=== PATIENT | female | born 2000 | race American Indian/Alaskan Native ===

== ENCOUNTER 2019-11-05 21:04 | Emergency (ER) | payer OTHER ==
[~2019-11-05] VITALS: Ht 167.6 cm; Wt 106.8 kg
[2019-11-05 21:50] LABS: BASO # 0.1 10^3/uL (0.0-0.2); BASO % 0.8 % (0.0-1.0); EOS # 0.4 10^3/uL (0.0-0.5); EOS % 3.8 % (0.0-3.0); HEMATOCRIT 39.7 % (36.0-47.0); HEMOGLOBIN 12.9 g/dl (12.0-15.5); LYMPH # 3.6 10^3/uL (1.5-5.0); LYMPH % 38.1 % (24.0-44.0); MEAN CORPUSCULAR HEMOGLOBIN 28.2 pg (27.0-33.0); MEAN CORPUSCULAR HGB CONC 32.5 g/dl (32.0-36.5); MEAN CORPUSCULAR VOLUME 86.7 fl (80.0-96.0); MONO # 0.8 10^3/uL (0.0-0.8); MONO % 8.2 % (0.0-5.0); NEUTROPHILS # 4.6 10^3/uL (1.5-8.5); NEUTROPHILS % 48.9 % (36.0-66.0); PLATELET COUNT, AUTOMATED 299 10^3/uL (150-450); RED BLOOD COUNT 4.58 10^6/uL (4.00-5.40); WHITE BLOOD COUNT 9.5 10^3/uL (4.0-10.0)
[2019-11-05 21:57] LABS: HCG, SERUM QUALITATIVE NEGATIVE (NEGATIVE)
[2019-11-05 22:34] VITALS: BP 148/78
== END 2019-11-05 22:36 | disposition home or self-care (01) ==
LOC: M ED 21:04
DX: N92.1 Excessive and frequent menstruation with irregular cycle (principal); F41.9 Anxiety disorder, unspecified

== ENCOUNTER 2019-12-21 21:11 | Emergency (ER) | payer OTHER ==
[~2019-12-21] VITALS: Ht 167.6 cm; Wt 106.8 kg
[2019-12-21] MEDS ORDERED: IBUPROFEN 600MG TAB PO ONE (21:30)
[2019-12-21] MEDS ORDERED: ACETAMINOPHEN 325 MG TAB PO ONE (21:30)
[2019-12-21] MEDS ORDERED: NS 1,000 ML IV ONE (21:30)
[2019-12-21 21:32] LABS: HEMATOCRIT 38.3 % (36.0-47.0); HEMOGLOBIN 12.6 g/dl (12.0-15.5); MEAN CORPUSCULAR HEMOGLOBIN 28.4 pg (27.0-33.0); MEAN CORPUSCULAR HGB CONC 32.9 g/dl (32.0-36.5); MEAN CORPUSCULAR VOLUME 86.3 fl (80.0-96.0); PLATELET COUNT, AUTOMATED 308 10^3/uL (150-450); RED BLOOD COUNT 4.44 10^6/uL (4.00-5.40); WHITE BLOOD COUNT 9.7 10^3/uL (4.0-10.0)
[2019-12-21] MEDS ORDERED: KEPP1TAB PO (21:46)
[2019-12-21 22:08] LABS: BLOOD UREA NITROGEN 11 MG/DL (7-18); CARBON DIOXIDE LEVEL 25 MEQ/L (21-32); CHLORIDE LEVEL 110 MEQ/L (98-107); CREATININE FOR GFR 0.88 MG/DL (0.55-1.30); GLUCOSE, FASTING 103 MG/DL (70-100); HCG, SERUM QUANTITATIVE < 1.0 MIU/ML; SODIUM LEVEL 142 MEQ/L (136-145)
[2019-12-21] MEDS ORDERED: MORPHINE 4 MG/ML 1ML VIAL/SYRINGE (J2270) IV ONE (23:00)
[2019-12-22 02:06] VITALS: BP 132/85
--- NOTE | 2019-12-22 20:25 | ECGEPIP ---
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
== END 2019-12-22 02:11 | disposition home or self-care (01) ==
LOC: M ED 21:11
DX: G40.909 Epilepsy, unspecified, not intractable, without status epilepticus (principal); Z88.0 Allergy status to penicillin; Z79.899 Other long term (current) drug therapy
CPT/HCPCS: 80048; 81001; 84702; 85027; 87086; 93005; 96361; 96374; 99285; J2270

== ENCOUNTER 2020-01-03 21:01 | Emergency (ER) | payer OTHER ==
[~2020-01-03] VITALS: Ht 167.6 cm; Wt 108.4 kg
[~2020-01-03 21:01] MED LIST: KEPP1TAB PO
[2020-01-03] MEDS ORDERED: DERMABOND TOPICAL SKIN ADHESIVE TOP ONE (22:15)
--- NOTE | 2020-01-03 22:51 | REPVR ---
PROCEDURE INFORMATION: Exam: XR Right Finger(s) Exam date and time: 01/03/2020 10:19 PM Age: 19 years old Clinical indication: Other: Cut with knife; Additional info: Swelling, limited rom after dropping bowl on it index TECHNIQUE: Imaging protocol: XR Right fingers. Views: Minimum 2 views. COMPARISON: No relevant prior studies available. FINDINGS: Bones/joints: Joint spaces are normal. No fracture or malalignment. Soft tissues: Normal. IMPRESSION: No fracture or malalignment. Electronically signed by: Felice Shahid On 01/03/2020 22:51:11 PM
[2020-01-03 23:04] VITALS: BP 139/78
== END 2020-01-03 23:05 | disposition home or self-care (01) ==
LOC: M ED 21:01
DX: S61.210A Laceration without foreign body of right index finger without damage to nail, initial encounter (principal); W26.8XXA Contact with other sharp object(s), not elsewhere classified, initial encounter; Y92.019 Unspecified place in single-family (private) house as the place of occurrence of the external cause; Y93.89 Activity, other specified; Y99.8 Other external cause status; F17.200 Nicotine dependence, unspecified, uncomplicated; Z79.899 Other long term (current) drug therapy; Z88.0 Allergy status to penicillin

== ENCOUNTER 2020-01-24 20:04 | Emergency (ER) | payer OTHER ==
[~2020-01-24] VITALS: Ht 167.6 cm; Wt 108.4 kg
[2020-01-24] MEDS ORDERED: ONDANSETRON 4MG/2ML VIAL IV ONE (20:45)
[2020-01-24] MEDS ORDERED: levETIRAcetam INJection 1,000 MG in D5W 100 ML IV ONE (20:45)
[2020-01-24] MEDS ORDERED: FAMOTIDINE IV BAG 20 MG in IV 1 EA IV ONE (20:45)
[2020-01-24] MEDS ORDERED: NS 1,000 ML IV ONE (20:45)
[2020-01-24 21:07] LABS: BASO # 0.1 10^3/uL (0.0-0.2); BASO % 0.6 % (0.0-1.0); EOS # 0.3 10^3/uL (0.0-0.5); EOS % 3.1 % (0.0-3.0); HEMATOCRIT 37.7 % (36.0-47.0); HEMOGLOBIN 12.3 g/dl (12.0-15.5); LYMPH # 3.3 10^3/uL (1.5-5.0); LYMPH % 32.3 % (24.0-44.0); MEAN CORPUSCULAR HEMOGLOBIN 28.2 pg (27.0-33.0); MEAN CORPUSCULAR HGB CONC 32.6 g/dl (32.0-36.5); MEAN CORPUSCULAR VOLUME 86.5 fl (80.0-96.0); MONO # 0.6 10^3/uL (0.0-0.8); MONO % 5.8 % (0.0-5.0); NEUTROPHILS # 5.9 10^3/uL (1.5-8.5); NEUTROPHILS % 57.8 % (36.0-66.0); PLATELET COUNT, AUTOMATED 291 10^3/uL (150-450); RED BLOOD COUNT 4.36 10^6/uL (4.00-5.40); WHITE BLOOD COUNT 10.2 10^3/uL (4.0-10.0)
[2020-01-24] MEDS ORDERED: ACETAMINOPHEN 500 MG TAB PO ONE (21:30)
[2020-01-24 21:31] LABS: BLOOD UREA NITROGEN 10 MG/DL (7-18); CALCIUM LEVEL 8.9 MG/DL (8.5-10.1); CARBON DIOXIDE LEVEL 26 MEQ/L (21-32); CHLORIDE LEVEL 108 MEQ/L (98-107); CPK CREATINE PHOSPHOKINASE 105 U/L (26-192); CREATININE FOR GFR 0.94 MG/DL (0.55-1.30); GLUCOSE, FASTING 119 MG/DL (70-100); MAGNESIUM LEVEL 2.1 MG/DL (1.8-2.4); POTASSIUM SERUM 3.7 MEQ/L (3.5-5.1); SODIUM LEVEL 142 MEQ/L (136-145)
[2020-01-24 22:15] VITALS: BP 112/56
[2020-01-24] MEDS ORDERED: ACET-907 PO (22:24)
--- NOTE | 2020-01-25 07:39 | ECGEPIP ---
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
== END 2020-01-24 22:28 | disposition home or self-care (01) ==
LOC: M ED 20:04
DX: G40.909 Epilepsy, unspecified, not intractable, without status epilepticus (principal); Z79.899 Other long term (current) drug therapy; Z88.0 Allergy status to penicillin
CPT/HCPCS: 80048; 82550; 83735; 85025; 93005; 96365; 96367; 96375; 99284; J1953; J2405

== ENCOUNTER 2020-02-23 18:26 | Emergency (ER) | payer OTHER ==
[~2020-02-23] VITALS: Ht 167.6 cm; Wt 104.5 kg
[~2020-02-23 18:26] MED LIST changes: +ACET-907 PO
[2020-02-23] MEDS ORDERED: DERMABOND TOPICAL SKIN ADHESIVE TOP ONE ×3 (19:00→19:30)
[2020-02-23 20:01] VITALS: BP 126/77
== END 2020-02-23 20:03 | disposition home or self-care (01) ==
LOC: M ED 18:26
DX: S61.012A Laceration without foreign body of left thumb without damage to nail, initial encounter (principal); Y92.9 Unspecified place or not applicable; Y93.G1 Activity, food preparation and clean up; Y99.9 Unspecified external cause status

== ENCOUNTER 2020-03-12 19:15 | Emergency (ER) | payer OTHER ==
[~2020-03-12] VITALS: Ht 167.6 cm; Wt 102.1 kg
--- OUTSIDE RECORDS SUMMARY | 2020-03-12 19:24 | CCD ---
Author Author [facility] Organization [facility] Address Unknown Phone Unavailable Care Team Providers Care Water Pump Servicer Name Role Phone CAM PRINCE MD Unavailable Unavailable CAM PRINCE MD Unavailable Unavailable CAM PRINCE MD Unavailable Unavailable CAM PRINCE MD Unavailable Unavailable GINZBURG, CAM MD Unavailable Unavailable GINZBURG, CAM MD Unavailable Unavailable GINZBURG, CAM MD Unavailable Unavailable GINZBURG CAM MD Unavailable Unavailable GINZBURG CAM MD Unavailable Unavailable GINZBURG CAM MD Unavailable Unavailable GINZBURG CAM MD Unavailable Unavailable GINZBURG CAM MD Unavailable Unavailable GINZBURG, CAM MD Unavailable Unavailable GINZBURG CAM MD Unavailable Unavailable GINZBURG, CAM MD Unavailable Unavailable GINZBURG, CAM MD Unavailable Unavailable GINZBURG, CAM MD Unavailable Unavailable GINZBURG, CAM MD Unavailable Unavailable GINZBURG, CAM MD Unavailable Unavailable GINZBURG CAM Unavailable Unavailable GINZBURG CAM Unavailable Unavailable GINZROSALIO CAM MD Unavailable Unavailable GINZBURG CAM MD Unavailable Unavailable GINZROSALIO CAM MD Unavailable Unavailable GINZROSALIO CAM Unavailable Unavailable GINZROSALIO CAM MD Unavailable Unavailable GINZROSALIO CAM MD Unavailable Unavailable GINZBURG, CAM MD Unavailable Unavailable GINZROSALIO CAM MD Unavailable Unavailable GINZROSALIO CAM MD Unavailable Unavailable GINZROSALIO CAM Unavailable Unavailable GINZROSALIO CAM Unavailable Unavailable GINZROSALIO CAM MD Unavailable Unavailable GINZROSALIO CAM Unavailable Unavailable GINZROSALIO CAM MD Unavailable Unavailable GINZROSALIO CAM Unavailable Unavailable GINZROSALIO CAM MD Unavailable Unavailable GINZBURG CAM Unavailable Unavailable GINZBURG CAM MD Unavailable Unavailable GINZBURG CAM MD Unavailable Unavailable GINZBURG, CAM MD Unavailable Unavailable GINZBURG, CAM MD Unavailable Unavailable GINZBURG CAM Unavailable Unavailable GINZBURG CAM Unavailable Unavailable GINZBURG CAM Unavailable Unavailable GINZBURG CAM MD Unavailable Unavailable GINZBURG, CAM MD Unavailable Unavailable GINZBURG, CAM MD Unavailable Unavailable GINZBURG CAM MD Unavailable Unavailable GINZBURG, CAM MD Unavailable Unavailable GINZBURG, CAM MD Unavailable Unavailable GINZBURG, CAM MD Unavailable Unavailable GINZBURG, CAM MD Unavailable Unavailable GINZBURG, CAM MD Unavailable Unavailable GINZBURG, CAM MD Unavailable Unavailable GINZBURG, CAM MD Unavailable Unavailable GINZBURG, CAM MD Unavailable Unavailable GINZBURG, CAM MD Unavailable Unavailable GINZBURG, CAM MD Unavailable Unavailable GINZBURG, CAM MD Unavailable Unavailable GINZBURG, CAM MD Unavailable Unavailable GINZBURG, CAM MD Unavailable Unavailable GINZBURG, CAM MD Unavailable Unavailable GINZBURG, CAM MD Unavailable Unavailable GINZBURG, CAM MD Unavailable Unavailable GINZBURG, CAM MD Unavailable Unavailable GINZBURG, CAM MD Unavailable Unavailable GINZBURG, CAM MD Unavailable Unavailable GINZBURG, CAM MD Unavailable Unavailable VAN GORDER, T SALMA Unavailable Unavailable VAN GORDER, T SALMA Unavailable Unavailable VAN GORDER, T SALMA Unavailable Unavailable VAN GORDER, T SALMA Unavailable Unavailable TEST, PROVIDER Unavailable Unavailable Rigoberto-Lisa, A Nilton DO Unavailable Unavailable Rigoberto-Lisa, A Nilton DO Unavailable Unavailable Rigoberto-Lisa, A Nilton DO Unavailable Unavailable Rigoberto-Lisa, A Nilton DO Unavailable Unavailable Rigoberto-Lisa, A Nilton DO Unavailable Unavailable Rigoberto-Lisa, A Nilton DO Unavailable Unavailable HALEY ZAYAS Unavailable Unavailable Kathy WIN Unavailable Unavailable Dustin LINARES, Physician Maryann Gee Unavailable Unavailable Theron DOBSON Unavailable Unavailable Kathy GONZALEZ Unavailable Unavailable Tere Mckenna MD Unavailable Unavailable Tere Mckenna MD Unavailable Unavailable Tere Mckenna MD Unavailable Unavailable CROWDER, ANANYA DO Unavailable Unavailable CROWDER, ANANYA DO Unavailable Unavailable CROWDER, ANANYA DO Unavailable Unavailable CROWDER, ANANYA DO Unavailable Unavailable CROWDER, ANANYA DO Unavailable Unavailable Provider Pending, [facility] Shamar Combs MD Unavailable Un available Toñito Avina MD Unavailable Unavailable Toñito Avina MD Unavailable Unavailable TAHIRA NEAL Unavailable Unavailable JIGNESH ELLIS MD Unavailable Unavailable JIGNESH ELLIS MD Unavailable Unavailable Sanford, Desiree DEPARTMENT OF SOCIOLOGY CHAIR Unavailable Unavailable [place]ford, Desiree DEPARTMENT OF SOCIOLOGY CHAIR Unavailable Unavailable [place]ford, Desiree DEPARTMENT OF SOCIOLOGY CHAIR Unavailable Unavailable [place]ford, Desiree DEPARTMENT OF SOCIOLOGY CHAIR Unavailable Unavailable [place]ford, Desiree DEPARTMENT OF SOCIOLOGY CHAIR Unavailable Unavailable NON, PHYSICIAN STAFF Unavailable Unavailable TURRIN, RONDA Unavailable Unavailable TURRIN, RONDA Unavailable Unavailable TURRIN, RONDA Unavailable Unavailable TURRIN, RONDA Unavailable Unavailable REBEKAH KILLIAN MD, Latoya WELCH MD Unavailable Unavailable Berto Temple MD Unavailable Unavailable Berto Temple MD Unavailable Unavailable Berto Temple MD Unavailable Unavailable Berto Temple MD Unavailable Unavailable Berto Temple MD Unavailable Unavailable Juarez, W Best Unavailable Unavailable Juarez, W Best Unavailable Unavailable Juarez, W Best Unavailable Unavailable Juarez, W Best Unavailable Unavailable Juarez, W Best Unavailable Unavailable Juarez, W Best Unavailable Unavailable Juarez, W Best Unavailable Unavailable Juarez, W Best Unavailable Unavailable [id number], [id number] Unavailable MEDENT_[id number], [id number] Unavailable MEDENT_[id number], [id number] Unavailable MEDENT_[id number], [id number] Unavailable MEDENT_[id number], [id number] Unavailable MEDENT_[id number], [id number] Unavailable MEDENT_[id number], [id number] Unavailable MEDENT_[id number], [id number] Unavailable MEDENT_[id number], [id number] Unavailable Theron Fuller MD Unavailable Unavailable Theron Fuller MD Unavailable Unavailable Theron Fuller MD Unavailable Unavailable Nancy Dooley MD Unavailable Unavailable Nancy Dooley MD Unavailable Unavailable Nancy Dooley MD Unavailable Unavailable Nancy Dooley MD Unavailable Unavailable Nancy Dooley MD Unavailable Unavailable Nancy Dooley MD Unavailable Unavailable Nancy Dooley MD Unavailable Unavailable Miah, E Dinorah MD Unavailable Unavailable Miah, E Dinorah MD Unavailable Unavailable Miah, E Dinorah MD Unavailable Unavailable Miah, E Dinorah MD Unavailable Unavailable Miah, E Dinorah MD Unavailable Unavailable Miah, E Dinorah MD Unavailable Unavailable Miah, E Dinorah MD Unavailable Unavailable Miah, E Dinorah MD Unavailable Unavailable Miah, E Dinorah MD Unavailable Unavailable Miah, E Dinorah MD Unavailable Unavailable Miah, E Dinorah MD Unavailable Unavailable Miah, E Dinorah MD Unavailable Unavailable Maih, E Dinorah MD Unavailable Unavailable Miah, E Dinorah MD Unavailable Unavailable Miah, E Dinorah MD Unavailable Unavailable Miah, E Dinorah MD Unavailable Unavailable Miah, E Dinorah MD Unavailable Unavailable Miah, E Dinorah MD Unavailable Unavailable Miah, E Dinorah MD Unavailable Unavailable Miah, E Dinorah MD Unavailable Unavailable Miah, E Dinorah MD Unavailable Unavailable Miah, E Dinorah MD Unavailable Unavailable Maih, E Dinorah MD Unavailable Unavailable Re-disclosure Warning The records that you are about to access may contain information from federally-assisted alcohol or drug abuse programs. If such information is present, then the following federally mandated warning applies: This information has been disclosed to you from records protected by federal confidentiality rules (42 CFR part 2). The federal rules prohibit you from making any further disclosure of this information unless further disclosure is expressly permitted by the written consent of the person to whom it pertains or as otherwise permitted by 42 CFR part 2. A general authorization for the release of medical or other information is NOT sufficient for this purpose. The Federal rules restrict any use of the information to criminally investigate or prosecute any alcohol or drug abuse patient.The records that you are about to access may contain highly sensitive health information, the redisclosure of which is protected by Article 27-F of the [facility] Public Health law. If you continue you may have access to information: Regarding HIV / AIDS; Provided by facilities licensed or operated by the [facility] Office of Mental Health; or Provided by the [facility] Office for People With Developmental Disabilities. If such information is present, then the following [facility] mandated warning applies: This information has been disclosed to you from confidential records which are protected by state law. State law prohibits you from making any further disclosure of this information without the specific written consent of the person to whom it pertains, or as otherwise permitted by law. Any unauthorized further disclosure in violation of state law may result in a fine or skilled nursing sentence or both. A general authorization for the release of medical or other information is NOT sufficient authorization for further disc losure. Family History Family Member Name Family Member Gender Family Member Status Date o f Status Description Data Source(s) Unknown Male Diagnosis 11/07/2014 12:00:00 AM EDT [facility] Encounters Encounter Providers Location Date Indications Data Source(s ) Outpatient Attender: CAM PRINCE MD 02/21/2020 12:00: 00 AM [facility] Outpatient Attender: CAM PRINCE MD [id number] 12:00:00 AM EDT - 12/20/2019 03[facility]38[facility]ender: RONDA GARCIAConsultant: STAFF NON 11/07/2019 11:33:00 PM EDT - 11/08/2019 01:19:00 AM EDT [facility] Patient discharged. Outpatient 07/20/2019 06:39:00 PM EDT [facility] Outpatient Attender: REBEKAH CHAUHAN MD MDAdmitt er: REBEKAH CHAUHAN MD, MD [facility] 07/18/2019 10:30:00 AM EDT TELEPHONE discuss surgery [facility] TELEPHONE discuss surgery [facility] ENT/Facial Plastic Surgery 0 07/18/2019 10:30:00 AM EDT - 07/18/2019 10:30:00 AM EDT Proc/trtmt not carried out because of contraindication [facility] Proc/trtmt not carried out because of co ntraindication P Attender: SALMA CARRASCOdmitter: SALMA ALVARADO MATTHIAS-MATTHIAS 07/11/2019 10:42:00 AM EDT [facility] - [facility] P Attender: LISA DOBSONAdmitter: LISA DOBSON MATTHIAS-MATTHIAS 2019 03:14:00 PM EDT [facility] - [facility] Outpatient Attender: LISA DOBSONAdmitter: LISA DOBSON MATTHIAS-MATTHIAS 06/29/2019 01:18:00 PM EDT - 06/29/2019 01:18:00 PM EDT [facility] Patient discharged. Outpatient Attender: Wali Temple MDAdmitter: Wali casanova MD [facility] 06/18/2019 06:16:00 PM EDT - 06/18/2019 08:15:00 PM EDT [facility] Patient discharged. Outpatient Attender: SALMA CARRASCOdmitter: SALMA ALVARADO OUT-OUT 05/31/2019 12:01:00 AM EDT - 06/29/2019 11:59:00 PM EDT [facility] - [facility] Patient discharged. P Attender: SALMA Bethitter: SALMA ALVARADO MATTHIAS-MATTHIAS 05/30/2019 08:44:00 AM EDT [facility] - [facility] Outpatient Attender: SALMA CARRASCOdmitter: SALMA ALVARADO MATTHIAS-MATTHIAS 05/30/2019 08:29:00 AM EDT - 05/30/2019 08:29:00 AM EDT [facility] - [facility] Patient discharged. P Attender: Desiree CHERRY PAttender: PROVIDER TESTAdmitter: Desiree HERNANDEZ LCB-LCB 05/26/2019 01:33:00 PM EDT Ascen darren Smith - [facility] Outpatient Attender: HALEY ZAYASAdmitter: HALEY SERRANO LCB-LCB 05/16/2019 05:58:00 PM EDT - 05/16/2019 05:58:00 PM EDT [facility] - [facility] Patient discharged. Outpatient Attender: HALEY FRIEDMAN ttender: PROVIDER TESTAdmitter: HALEY ZAYAS LCB-LCB 05/16/2019 05:23:00 PM EDT - 05/16/2019 05:58:00 PM EDT [facility] - [facility] Emergency Attender: Nilton moura DOAdmitter: Nilton ABRAMSeferrer: Dinorah Chavez/ShayM/S 05/12/2019 02:05:00 PM EDT - 05/12/2019 03:05:00 PM EDT [facility] - [facility] Patient discharged. Emergency Attender: Nilton moura DOAdmitter: Nilton Willson DOReferrer: Dinorah Dooley MD ANC-ER 05/12/2019 02:05:00 PM EDT [facility] Sarah - [facility] Outpatient Attender: TAHIRA BELLA PAAdmitter: TAHIRA BELLA PA MATTHIAS-MATTHIAS 05/12/2019 12:53:00 PM EDT - 05/12/2019 12:53:00 PM EDT [facility] - [facility] Patient discharged. Outpatient Attender: Best Verma r: [facility] [place] Br Provider Pending MDAdmitter: Best CASTRO 05/08/2019 11:02:00 AM EDT [facility] OutpatientOffice/outpatient visit,est, mod [facility] 05/08/2019 11:02:00 AM EDT - 05/08/2019 11:02:00 AM EDT Intractable migraine without status migrainosus, unspecified migraine type [facility] Intractable migraine without status migr ainosus, unspecified migraine type Outpatient Attender: MADHAVI GUAJARDOdmitter: MADHAVI WIN ANC -BCC 05/01/2019 08:27:00 AM EST - 05/01/2019 08:27:00 AM EST [facility] - [facility] Patient discharged. Outpatient Attender: SALMA CARRASCOdmitter: SALMA ALVARADO OUT-OUT 2019 12:01:00 AM EST - 05/30/2019 11:59:00 PM EDT [facility] - [facility] Patient discharged. Emergency Attender: Teddy Kurtz nder: Nilton Willson DOAdmitter: Teddy Mckenna MDReferrer: Dinorah Chavez/Katina-M/S 04/27/2019 01:15:00 PM EST - 04/27/2019 05:18:00 PM EST [facility] Patient discharged. Emergency Attender: Nilton Willson DOAdmitter : Nilton Willson DO ANC-ER 04/27/2019 01:15:00 PM EST [facility] Tonja rdes - [facility] Outpatient Attender: SALMA Bethitter: SALMA ALVARADO OUT-OUT 04/26/2019 02:59:00 PM EST - 04/27/2019 09:13:00 AM EST [facility] - [facility] Patient discharged. Outpatient Attender: SALMA Bethitter: SALMA ALVARADO OUT-OUT 04/25/2019 09:15:00 AM EST - 04/29/2019 11:59:00 PM EST [facility] - [facility] Patient discharged. Outpatient Attender: TAHIRA Buenoitter: TAHIRA HOFFMANN MATTHIAS-MATTHIAS 04/24/2019 10:16:00 AM EST - 04/24/2019 10:16:00 AM EST [facility] - [facility] Patient discharged. P Attender: TAHIRA Buenoitter: TAHIRA HOFFMANN MATTHIAS-MATTHIAS 04/24/2019 09:00:00 AM EST [facility] P Attender: SALMA Bethitter: SALMA ALVARADO MATTHIAS-MATTHIAS 04/19/2019 09:00:00 AM EST [facility] - [facility] Outpatient Attender: SALMA Bethitter: SALMA ALVARADO MATTHIAS-MATTHIAS 04/10/2019 07:46:00 AM EST - 04/10/2019 09:28:00 AM EST [facility] - [facility] Patient discharged. Outpatient Attender: SALMA Bethitter: SALMA ALVARADO ANC-NICKOLAS 04/10/2019 05:00:00 AM EST - 04/10/2019 07:00:00 PM EST [facility] - [facility] Patient discharged. Outpatient Attender: SALMA CARRASCO dmitter: SALMA Alemanultant: Physician Marlen Chan MD ANC-NICKOLAS 04/10/2019 05:00:00 AM EST - 04/10/2019 07:00:00 PM EST [facility] - [facility] P Attender: SALMA Bethitter: SALMA ALVARADO ANC-NICKOLAS 04/10/2019 04:00:00 AM EST [facility] - [facility] P Attender: SALMA Bethitter: SALMA ALVARADO PAT-PAT 04/05/2019 04:00:00 AM EST [facility] - [facility] P Attender: SALMA Bethitter: SALMA ALVARADO MATTHIAS-MATTHIAS 04/04/2019 01:50:00 PM EST [facility] - [facility] Outpatient Attender: [id number] [facility] Main Office 04/04/2019 11:45:00 AM EST [facility] ([facility] ) Outpatient Attender: SALMA Bethitter: SALMA ALVARADO MATTHIAS-MATTHIAS 04/04/2019 09:52:00 AM EST - 04/04/2019 09:52:00 AM EST [facility] - [facility] Patient discharged. Emergency Attender: Toñito Hernandez ter: Toñito Avina MDReferrer: Dinorah Dooley MD M/S-M/S 04/03/2019 12:15:00 PM EST - 04/03/2019 05:20:00 PM EST [facility] - [facility] Patient discharged. Emergency Attender: Toñito Hernandez ter: Toñito LARKINeferrer: Dinorah Dooley MD ANC-ER 04/03/2019 12:15:00 PM EST - 04/03/2019 05:20:00 PM EST [facility] - [facility] P Attender: MADHAVI Williamitter: MADHAVI WIN ANC -BCC 03/28/2019 04:00:00 AM EST [facility] - [facility] Outpatient Attender: PROVIDER TESTAdmitter: PROVIDER TEST Jessica ARMENDARIZ-LCB 03/26/2019 11:11:00 AM EST - 03/26/2019 12:11:00 PM EST [facility] - [facility] Patient discharged. Outpatient Attender: ZEE GONZALEZAttender: PROVIDER TESTAdmitter: ZEE ABDALLA-LCB 03/26/2019 10:11:00 AM EST - 03/26/2019 12:11:00 PM EST [facility] - [facility] Outpatient Attender: ZEE GONZALEZAttender: PROVIDER TESTAdmitter: ZEE ABDALLA-LCB 03/26/2019 10:11:00 AM EST - 03/27/2019 11:59:59 PM EST [facility] - [facility] Emergency Attender: Atilio Fuller MDAdmitter: Atilio Cahvez/S-M/S 02/18/2019 09:11:00 AM EST - 02/18/2019 02:08:00 PM EST [facility] - [facility] Patient discharged. Emergency Attender: Atilio Fuller MDAdmitter: Atilio stahl MD ANC-ER 02/18/2019 09:11:00 AM EST [facility] - [facility] Outpatient [facility] 01/27/2019 02:52:00 PM EST - 019 12:00:00 AM EDT [facility] Patient discharged. [facility] Evelina 1 03/29/2018 02:48:00 PM EST - 01/27/2019 02:48:00 PM EST [employer] [place] [place] Attender: ANANYA OMALLEY ttender: Nilton Willson DOAdmitter: ANANYA CROWDER DOReferrer: Dinorah Dooley MD M/S-M/S 12/03/19 02:43:00 PM EDT - 12/02/2018 07:06:00 PM EDT [facility] - [facility] Patient discharged. Emergency Attender: JIGNESH ELLIS MDAt tender: Atilio Fuller MDAdmitter: JIGNESH ELLIS MDReferrer: Dinorah Dooley MD M/S-M/S 11/28/2018 01:55 :00 PM EDT - 11/28/2018 06:46:00 PM EDT [facility] Patient discharged. Medications Medication Brand Name Start Date Product Form Dose Route Admi nistrative Instructions Pharmacy Instructions Status Indications Reaction Description Data Source(s) Diclofenac Sodium 50 MG Delayed Release Oral Tablet Diclofen ac Sodium 06/29/2019 12:00:00 AM EDT ORAL active M EDENT ([facility]) naproxen 500 mg oral tablet 05/26/2019 02:15:00 PM EDT 5 00.0 By Mouth completed 500 mg = 1 tab(s), P O (oral), bid, PRN Pain, # 30 tab(s), Maintenance, Pharmacy: [facility]/pharmacy #[id number], 1 tab(s) PO (oral) bid,PRN:Pain [facility] naproxen 500 mg oral tablet 05/26/2019 02:15:00 PM EDT 5 00.0 By Mouth completed 500 mg = 1 tab(s), P O (oral), bid, PRN Pain, # 30 tab(s), Maintenance, Pharmacy: [facility]/pharmacy #[id number], 1 tab(s) PO (oral) bid,PRN:Pain [facility] naproxen 500 mg oral tablet 05/26/2019 02:15:00 PM EDT 5 00.0 By Mouth completed 500 mg = 1 tab(s), P O (oral), bid, PRN Pain, # 30 tab(s), Maintenance, Pharmacy: [facility]/pharmacy #[id number], 1 tab(s) PO (oral) bid,PRN:Pain [facility] Sarah [facility] naproxen 500 mg oral tablet 05/26/2019 02:15:00 PM EDT 5 00.0 By Mouth completed 500 mg = 1 tab(s), P O (oral), bid, PRN Pain, # 30 tab(s), Maintenance, Pharmacy: [facility]/pharmacy #[id number], 1 tab(s) PO (oral) bid,PRN:Pain [facility] - [facility] Zofran 4 mg oral tablet 05/12/2019 02:44:00 PM EDT 4.0 Under your Tongue completed 4 mg = 1 tab(s), SubLINGUAL, q6hr, PRN for Nausea or Vomiting, # 9 tab(s), 0 Refill(s), Maintenance, Pharmacy: [facility]/pharmacy [id number], 1 tab(s) SubLINGUAL q6hr,x3 day(s),PRN:for Nausea or Vomiting [facility] - [facility] Zofran 4 mg oral tablet 05/12/2019 02:44:00 PM EDT 4.0 Under your Tongue completed 4 mg = 1 tab(s), SubLINGUAL, q6hr, PRN for Nausea or Vomiting, # 9 tab(s), 0 Refill(s), Maintenance, Pharmacy: [facility]/pharmacy #[id number], 1 tab(s) SubLINGUAL q6hr,x3 day(s),PRN:for Nausea or Vomiting [facility] - [facility], [facility] Zofran 4 mg oral tablet 05/12/2019 02:44:00 PM EDT 4.0 Under your Tongue completed 4 mg = 1 tab(s), SubLINGUAL, q6hr, PRN for Nausea or Vomiting, # 9 tab(s), 0 Refill(s), Maintenance, Pharmacy: [facility]/pharmacy #[id number], 1 tab(s) SubLINGUAL q6hr,x3 day(s),PRN:for Nausea or Vomiting [facility] - [facility] Zofran 4 mg oral tablet 05/12/2019 02:44:00 PM EDT 4.0 Under your Tongue completed 4 mg = 1 tab(s), SubLINGUAL, q6hr, PRN for Nausea or Vomiting, # 9 tab(s), 0 Refill(s), Maintenance, Pharmacy: [id number], 1 tab(s) SubLINGUAL q6hr,x3 day(s),PRN:for Nausea or Vomiting [facility] - [facility] Zofran 4 mg oral tablet 05/12/2019 02:44:00 PM EDT 4.0 Under your Tongue completed 4 mg = 1 tab(s), SubLINGUAL, q6hr, PRN for Nausea or Vomiting, # 9 tab(s), 0 Refill(s), Maintenance, Pharmacy: [facility]acy [id number], 1 tab(s) SubLINGUAL q6hr,x3 day(s),PRN:for Nausea or Vomiting [facility] Zofran ODT 4 mg oral tablet, disintegrating 04/27/2019 05: 08:00 PM EST 4.0 By Mouth completed 4 mg = 1 tab(s ), PO (oral), tid, PRN Nausea, # 9 tab(s), Maintenance, Pharmacy: [id number], 1 tab(s) PO (oral) tid,PRN:Nausea [facility] Sarah - [facility], [facility] Zofran ODT 4 mg oral tablet, disintegrating 04/27/2019 05: 08:00 PM EST 4.0 By Mouth completed 4 mg = 1 tab(s ), PO (oral), tid, PRN Nausea, # 9 tab(s), Maintenance, Pharmacy: [id number], 1 tab(s) PO (oral) tid,PRN:Nausea [facility] - [facility] Zofran ODT 4 mg oral tablet, disintegrating 04/27/2019 05: 08:00 PM EST 4.0 By Mouth completed 4 mg = 1 tab(s ), PO (oral), tid, PRN Nausea, # 9 tab(s), Maintenance, Pharmacy: [id number], 1 tab(s) PO (oral) tid,PRN:Nausea [facility] Sarah - [facility] Zofran ODT 4 mg oral tablet, disintegrating 04/27/2019 05: 08:00 PM EST 4.0 By Mouth completed 4 mg = 1 tab(s ), PO (oral), tid, PRN Nausea, # 9 tab(s), Maintenance, Pharmacy: [facility]/pharmacy #[id number], 1 tab(s) PO (oral) tid,PRN:[facility] Zofran ODT 4 mg oral tablet, disintegrating 04/27/2019 05: 08:00 PM EST 4.0 By Mouth completed 4 mg = 1 tab(s ), PO (oral), tid, PRN Nausea, # 9 tab(s), Maintenance, Pharmacy: [facility]/pharmacy #[id number], 1 tab(s) PO (oral) tid,PRN:Nausea [facility], [facility] Zofran ODT 4 mg oral tablet, disintegrating 04/27/2019 05: 08:00 PM EST 4.0 By Mouth completed 4 mg = 1 tab(s ), PO (oral), tid, PRN Nausea, # 9 tab(s), Maintenance, Pharmacy: [facility]/pharmacy #[id number], 1 tab(s) PO (oral) tid,PRN:Nausea [facility], [facility] Omeprazole omeprazole 40 mg oral delayed release capsu le omeprazole 40 mg oral delayed release capsule 04/27/2019 05:00:00 PM EST 40.0 By Mouth completed 40 mg = 1 cap(s), PO (oral), qDay, # 90 cap(s), Maintenance, Pharmacy: [facility]/pharmacy #[id number], 1 cap(s) PO (oral) qDay Harnett [facility], [facility] Omeprazole omeprazole 40 mg oral delayed release capsu le omeprazole 40 mg oral delayed release capsule 04/27/2019 05:00:00 PM EST 40.0 By Mouth completed 40 mg = 1 cap(s), PO (oral), qDay, # 90 cap(s), Maintenance, Pharmacy: [facility]/pharmacy #[id number], 1 cap(s) PO (oral) qDay [facility]ett [facility] Omeprazole omeprazole 40 mg oral delayed release capsu le omeprazole 40 mg oral delayed release capsule 04/27/2019 05:00:00 PM EST 40.0 By Mouth completed 40 mg = 1 cap(s), PO (oral), qDay, # 90 cap(s), Maintenance, Pharmacy: [facility]/pharmacy #[id number], 1 cap(s) PO (oral) qDay [facility] Omeprazole omeprazole 40 mg oral delayed release capsu le omeprazole 40 mg oral delayed release capsule 04/27/2019 05:00:00 PM EST 40.0 By Mouth completed 40 mg = 1 cap(s), PO (oral), qDay, # 90 cap(s), Maintenance, Pharmacy: [facility]/pharmacy #[id number], 1 cap(s) PO (oral) qDay Harnett Sarah - [facility], [facility] Omeprazole omeprazole 40 mg oral delayed release capsu le omeprazole 40 mg oral delayed release capsule 04/27/2019 05:00:00 PM EST 40.0 By Mouth completed 40 mg = 1 cap(s), PO (oral), qDay, # 90 cap(s), Maintenance, Pharmacy: [facility]/pharmacy #[id number], 1 cap(s) PO (oral) qDay Harnett Sarah - [facility], [facility] Omeprazole omeprazole 40 mg oral delayed release capsu le omeprazole 40 mg oral delayed release capsule 04/27/2019 05:00:00 PM EST 40.0 By Mouth completed 40 mg = 1 cap(s), PO (oral), qDay, # 90 cap(s), Maintenance, Pharmacy: [facility]/pharmacy #[id number], 1 cap(s) PO (oral) qDay [facility] - [facility], [facility] medroxyPROGESTERone 150 mg/mL intramuscular suspension 04/27/2019 04:13:00 PM EST 150.0 IntraMUSCULAR completed 150 mg =, IM, Maintenance [facility], [facility] Morphine Sulfate 15 MG Oral Tablet Morphine Sulfate 04/11/2019 1 2:00:00 AM EST ORAL completed [facility] ([facility]) acetaminophen-oxyCODONE 325 mg-5 mg oral tablet 2019 12:18:00 PM EST 1.0 By Mouth completed 1 tab(s), PO (oral), q4h, PRN Moderate Pain (4- 6), # 20 tab(s), 0 Refill(s), Maintenance, Pharmacy: [facility]/pharmacy #[id number], 1 tab(s) PO (oral) q4h,PRN:Moderate Pain (4-6) Harnettjohn Smith - [facility], [facility] CeleBREX 100 mg oral capsule 04/10/2019 12:17:00 PM EST 100.0 By Mouth completed 100 mg = 1 cap(s), P O (oral), bid, # 60 cap(s), Maintenance, Pharmacy: [facility]acy [id number], 1 cap(s) PO (oral) bid [facility]ett Sarah [facility] docusate sodium 100 mg oral tablet 04/10/2019 12:16:00 PM EST 100.0 By Mouth completed 100 mg =, PO ( oral), qDay, # 5 tab(s), Maintenance, Pharmacy: [facility]/pharmacy #[id number], 100 mg PO (oral) qDay Harnett Sarah - [facility], [facility] cephalexin 500 mg oral capsule 04/10/2019 12:16:00 PM EST 500.0 By Mouth completed 500 mg = 1 cap(s ), PO (oral), q6hr, # 12 cap(s), Maintenance, Pharmacy: [facility]/pharmacy #[id number], 1 cap(s) PO (oral) q6hr Harnett Sarah - [facility] Zofran ODT 4 mg oral tablet, disintegrating 04/10/2019 12: 16:00 PM EST Under your Tongue completed 1 to 2 tab(s), SubLINGUAL, q8h, PRN for nausea or vomiting, # 4 tab(s), Maintenance, Pharmacy: [id number], 1 to 2 tab(s) SubLINGUAL q8h,PRN:for nausea or vomiting [facility]arnett Sarah [facility] aspirin 325 mg oral delayed release tablet 04/10/2019 12:1 6:00 PM EST 325.0 By Mouth completed 325 mg = 1 tab (s), PO (oral), qDay, # 14 tab(s), Maintenance, Pharmacy: [id number], 1 tab(s) PO (oral) qDay Harnett Sarah - [facility], [facility] Zofran ODT 4 mg oral tablet, disintegrating 04/03/2019 04: 37:30 PM EST Under your Tongue completed 1 to 2 tab(s), SubLINGUAL, q8h, PRN for nausea or vomiting, # 4 tab(s), Maintenance, Pharmacy: [facility]/pharmacy #[id number], 1 to 2 tab(s) SubLINGUAL q8h,PRN:for nausea or vomiting [facility]arnett Sarah - [facility], [facility] Macrobid 100 mg oral capsule 03/26/2019 11:05:15 AM EST 100.0 By Mouth completed 100 mg = 1 cap(s), P O (oral), bid, # 10 cap(s), Maintenance, Pharmacy: [facility]/pharmacy #[id number], 1 cap(s) PO (oral) bid,x5 day(s) [facility]arnett Sarah - [facility], [facility] Macrobid 100 mg oral capsule 03/26/2019 11:05:15 AM EST 100.0 By Mouth completed 100 mg = 1 cap(s), P O (oral), bid, # 10 cap(s), Maintenance, Pharmacy: [facility]/pharmacy #[id number], 1 cap(s) PO (oral) bid,x5 day(s) [facility]arnett Sarah - [facility], [facility] Voltaren 75 mg oral enteric coated tablet 02/18/2019 01:51 :38 PM EST 75.0 By Mouth completed 75 mg = 1 tab( s), PO (oral), bid, # 20 tab(s), Maintenance, Pharmacy: [id number], 1 tab(s) PO (oral) bid Harnett Sarah - [facility], [facility] Voltaren 75 mg oral enteric coated tablet 02/18/2019 01:51 :38 PM EST 75.0 By Mouth completed 75 mg = 1 tab( s), PO (oral), bid, # 20 tab(s), Maintenance, Pharmacy: [id number], 1 tab(s) PO (oral) bid [facility]ett [facility], [facility] Flonase Allergy Relief 50 mcg/actuation nasal spray,dickinson spension Fluticasone propionate 0.05 MG/ACTUAT Metered Dose Nasal [place] 06/08/2016 12:00:00 AM EDT NASAL completed Fluticason e propionate 0.05 MG/ACTUAT Metered Dose Nasal [place] [Flonase] [facility] trazodone 50 mg tablet trazodone HCl TABLET 1.00 tablet ORAL completed take 1 tablet by oral route every day at bedtime [facility] Hyoscyamine Sulfate 0.125 MG/ML Oral Nat ution HYOSCYAMINE SULFATE (unknown strength) HYOSCYAMINE SULFATE (unknown strength) ORAL completed take 1 milliliter by oral route every 4 hours as needed [facility] Previfem 0.25 mg-35 mcg tablet {21 (Ethinyl Estradiol 0.035 MG / norgestimate 0.25 MG Oral Tablet) / 7 (Inert Ingredients 1 MG Oral Tablet) } Pack TABLET 1.00 tablet ORAL completed Previfem 28 Day Pa ck [facility] Briellyn 0.4 mg-35 mcg tablet {21 (Ethinyl Estradiol 0 .035 MG / Norethindrone 0.4 MG Oral Tablet) / 7 (Inert Ingredients 1 MG Oral Tablet) } Pack TABLET 1.00 tablet ORAL completed Briellyn 28 Day Pa ck [facility] Metformin hydrochloride 500 MG Oral Tablet metformin 5 00 mg tablet metformin 500 mg tablet TABLET 1.00 tablet ORAL completed take 1 tablet by oral route 2 times every day with morning and evening meals [facility] Lactobacillus rhamnosus GG [id number] U NT Oral Capsule Culturelle 10 billion cell capsule Culturelle 10 billion cell capsule CAPSULE ORAL completed [facility] Clonazepam 1 MG Oral Tablet clonazepam 1 mg tablet clonazepam 1 mg tablet TABLET 1 tablet ORAL completed take 1 tablet by oral route 2 times every day [facility] methylphenidate ER 50 mg multiphase capsule 30-70,exte nded release methylphenidate HCl CAPSULE ORAL completed take 1 capsule by oral route every day before breakfast [facility] Insurance Providers Payer name Policy type / Coverage type Policy ID Covered alliance party ID Covered alliance party's relationship to soto Policy Soto Plan Information [employer] [facility] [id number] SP [id number] CDPHP COMMERCIAL U [id number] Self 3 [id number] [facility] [employer] [facility] [id number] CDPHP [id number] self [id number] Medicaid [id number] Self [id number] CDPHP [id number] Self [id number] MEDICAID NYS 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 S JA [id number] CDPHP COM [id number] F [id number] [facility] Organizational Contracts [id number] Self [id number] CDPHP [id number] self [id number] CDPHP COM [id number] F [id number] CDPHP COM [id number] F [id number] CDPHP Health Maintenance Organization (HMO) [id number] Family Dependent [id number] Medicaid [id number] Self [id number] CDPHP MCO 14 [id number] DE [id number] CDPHP COMMERCIAL U [id number] Self [id number] GOVERNMENTAL GENERIC B [id number] ORel [id number] MEDICAID M [id number] Self [id number] MEDICAID M [id number] Self [id number] Problems, Conditions, and Diagnoses Code Display Name Description Problem Type Effective Dates Data Source(s) 90280140 Knee pain Knee pain Problem 06/29/2019 12:00:00 AM ED T BETSY ([facility]) [id number] Nicotine dependence, cigarettes, uncompl icated Nicotine dependence, cigarettes, uncomplicated Diagnosis 11/07/2019 11:33:00 PM EDT [facility] N949 Unspecified condition associ ated with female genital organs and menstrual cycle Unspecified condition associated with fe male genital organs and menstrual cycle Diagnosis 11/07/2019 11:33:00 PM EDT [facility] N939 Abnormal uterine and vaginal bleeding, u nspecified Abnormal uterine and vaginal bleeding, unspecified Diagnosis 11/07/2019 11:33:00 PM EDT [facility] [id number] Pain in left knee Pain in left knee Diagnosis 06/29/2019 01:18:00 PM EDT Lexi Smith - [facility] K59.00 Constipation, unspecified Constipation, unspecified Di agnosis 06/22/2019 12:00:00 AM EDT [facility] Z4889 Encounter for other specified surgical a ftercare Encounter for other specified surgical aftercare Diagnosis 05/30/2019 08:29:00 AM EDT Asce darrell Smith - [facility], [facility] fever x 2 days fever x 2 days Diagnosis 05/26/2019 01:33: 00 PM EDT Harnett Sarah - [facility], [facility] left knee injury left knee injury Diagnosis 05/16/2019 05 :23:00 PM EDT Harnett Sarah - [facility], [facility] R509 Fever, unspecified Fever, unspecified Diagnosis 0 02:05:00 PM EDT Harnett Sarah - [facility], [facility] FEVER CONGESTION N/V FEVER CONGESTION N/V Diagnosis 05/12/2019 02:05:00 PM EDT Harnett Sarah - [facility], [facility] J029 Acute pharyngitis, unspecified Acute pharyngitis, unsp ecified Diagnosis 05/12/2019 02:05:00 PM EDT Harnett Sarah - [facility], [facility] VAS RC VAS RC Diagnosis 05/12/2019 12:53:00 PM ED T Harnett Sarah - [facility], [facility] M7989 Other specified soft tissue disorders Ot her specified soft tissue disorders Diagnosis 05/12/2019 12:53:00 PM EDT Harnett Tonja rdes - [facility], [facility] N6452 Nipple discharge Nipple discharge Diagnosis 05/01/2019 08 :27:00 AM EST Harnett Sarah - [facility], [facility] N644 Mastodynia Mastodynia Diagnosis 05/01/2019 08:27:00 AM ES T Harnett Sarah - [facility], [facility] [id number] Other half-way (current) drug therapy O ther half-way (current) drug therapy Diagnosis 04/27/2019 01:15:00 PM EST Harnett Tonja rdes - [facility], [facility] Z803 Family history of malignant neoplasm of breast Family history of malignant neoplasm of breast Diagnosis 04/27/2019 01:15:00 PM EST Harnett Tonja rdes - [facility], [facility] Z3202 Encounter for test, result neg ative Encounter for test, result negative Diagnosis 04/27/2019 01:15:00 PM EST Harnett L ourdes - [facility], [facility] [id number] Personal history of nicotine dependence Personal history of nicotine dependence Diagnosis 04/27/2019 01:15:00 PM EST Harnett Tonja rdes - [facility], [facility] [id number] Other specified postprocedural states Ot her specified postprocedural states Diagnosis 04/27/2019 01:15:00 PM EST Harnett Tonja rdes - [facility], [facility] R110 Nausea Nausea Diagnosis 04/27/2019 01:15:00 PM ES T Harnett Sarah - [facility], [facility] F329 Major depressive disorder, single episod e, unspecified Major depressive disorder, single episode, unspecified Diagnosis 04/27/2019 01:15:00 PM EST Harnett Sarah - [facility], [facility] F419 Anxiety disorder, unspecified Anxiety disorder, unspec ified Diagnosis 04/27/2019 01:15:00 PM EST Harnett Sarah - [facility], [facility] K2970 Gastritis, unspecified, without bleeding Gastritis, unspecified, without bleeding Diagnosis 04/27/2019 01:15:00 PM EST Harnett Tonja rdes - [facility], [facility] K219 Gastro-esophageal reflux disease without esophagitis Gastro-esophageal reflux disease without esophagitis Diagnosis 04/27/2019 01:15:00 PM ES T Harnett Sarah - [facility], [facility] CHILLS/VOMITING/CHEST CONGESTION/PAIN CHILLS/VOM ITING/CHEST CONGESTION/PAIN Diagnosis 04/27/2019 01:15:00 PM EST [facility]arnett Sarah [facility] R079 Chest pain, unspecified Chest pain, unspecified Diagno sis 04/27/2019 01:15:00 PM EST Harnett Sarah - [facility], [facility] [id number] Other instability, left knee Other instability, left k nee Diagnosis 04/24/2019 10:16:00 AM EST Harnett Sarah - [facility], [facility] 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, 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, left knee Diagnosis 04/10/2019 07:46:00 AM EST Harnett Tonja rdes - [facility], [facility] F410 Panic disorder episodic paroxysmal an xiety Panic disorder episodic paroxysmal anxiety Diagnosis 04/10/2019 05:00:00 AM EST Harnett Sarah - [facility], [facility] E282 Polycystic ovarian syndrome Polycystic ovarian syndrom e Diagnosis 04/10/2019 05:00:00 AM EST Harnett Sarah - [facility], [facility] F909 Attention-deficit hyperactivity disorder , unspecified type Attention- deficit hyperactivity disorder, unspecified type Diagnosis 04/10 05:00:00 AM EST Harnett Sarah - [facility], [facility] Z8041 Family history of malignant neoplasm of ovary Family history of malignant neoplasm of ovary Diagnosis 04/10/2019 05:00:00 AM EST Harnett Tonja rdes - [facility], [facility] Z880 Allergy status to penicillin Allergy status to penicil livier Diagnosis 04/10/2019 05:00:00 AM EST Harnett Sarah - [facility] 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, 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, left knee Diagnosis 04/10/2019 05:00:00 AM EST Harnett Tonja rdes - [facility], [facility] MP MP Diagnosis 04/10/2019 05:00:00 AM ES T Harnett Sarah - [facility] NICKOLAS NICKOLAS Diagnosis 04/10/2019 05:00:00 AM ES T Harnett Sarah - [facility] M2352 Chronic instability of knee, left knee C hronic instability of knee, left knee Diagnosis 04/10/2019 05:00:00 AM EST Harnett Tonja rdes - [facility], [facility] PAT PHONE PAT PHONE Diagnosis 04/05/2019 04:00:00 AM ES T Harnett Sarah - [facility], [facility] [id number] Sprain of medial collateral ligament of left knee, init Sprain of medial collateral ligament of left knee, init Diagnosis 04/04/2019 09:52:00 AM EST Harnett Sarah - [facility] K589 Irritable bowel syndrome without diarrhe a Irritable bowel syndrome without diarrhea Diagnosis 04/03/2019 12:15:00 PM EST Harnett Tonja rdes - [facility] F418 Other specified anxiety disorders Other specifie d anxiety disorders Diagnosis 04/03/2019 12:15:00 PM EST Harnett Sarah - [facility] K2900 Acute gastritis without bleeding Acute gastritis without bleeding Diagnosis 04/03/2019 12:15:00 PM EST Harnett Sarah - [facility] VOMITING/ABD PAIN/UNABLE TO URINATE VOMITING/ABD PAIN/UNABLE TO URINATE Diagnosis 04/03/2019 12:15:00 PM EST Harnett Sarah - [facility] R1032 Left lower quadrant pain Left lower quadrant pain Diag nosis 04/03/2019 12:15:00 PM EST Harnett Sarah - [facility] BCC PRESLEY BCC PRESLEY Diagnosis 03/28/2019 04:00:00 AM ES T Harnett Sarah - [facility] vomitting for a week vomitting for a week Diagnosis 03/26/2019 10:11:00 AM EST Harnett Sarah - [facility] N390 Urinary tract infection, site not specif ied Urinary tract infection, site not specified Diagnosis 03/26/2019 10:11:00 AM EST Harnett Tonja rdes - [facility] N946 Dysmenorrhea, unspecified Dysmenorrhea, unspecified Di agnosis 02/18/2019 09:11:00 AM EST Harnett Sarah - [facility] VOMITTING/RECTAL BLEEDING VOMITTING/RECTAL BLEEDING Di agnosis 02/18/2019 09:11:00 AM EST Harnett Sarah - [facility] R1030 Lower abdominal pain, unspecified Lower abdomina l pain, unspecified Diagnosis 02/18/2019 09:11:00 AM EST [facility]arnett Sarah [facility] Surgeries/Procedures Procedure Description Date Indications Data Source(s) POSTOP FOLLOW-UP VISIT POSTOP FOLLOW-UP VISIT 06/29/2019 12:00:00 A M EDT Harnett Sarah - [facility], [facility] X-RAY EXAM OF KNEE 3 X-RAY EXAM OF KNEE 3 06/29/2019 12:00:00 AM ED T Harnett Sarah - [facility] X-RAY EXAM OF KNEE 3 X-RAY EXAM OF KNEE 3 06/29/2019 12:00:00 AM ED T Harnett Sarah - [facility], [facility] POSTOP FOLLOW-UP VISIT POSTOP FOLLOW-UP VISIT 06/29/2019 12:00:00 A M EDT Harnett Sarah - [facility] X-Ray Knee Ap & Lateral W/Obliques Three Views 020 12:00:00 AM EDT [facility] ([facility]) OFFICE/OUTPATIENT VISIT EST OFFICE/OUTPATIENT VISIT EST 04/30 12:00:00 AM EDT Harnett Sarah - [facility], [facility] OFFICE/OUTPATIENT VISIT EST OFFICE/OUTPATIENT VISIT EST 04/30 12:00:00 AM EDT Harnett Sarah - [facility] X-RAY EXAM OF KNEE 3 X-RAY EXAM OF KNEE 3 05/16/2019 12:00:00 AM ED T Harnett Sarah - [facility] OFFICE/OUTPATIENT VISIT EST OFFICE/OUTPATIENT VISIT EST 04/29 12:00:00 AM EDT Harnett Sarah - [facility], [facility] X-RAY EXAM OF KNEE 3 X-RAY EXAM OF KNEE 3 05/16/2019 12:00:00 AM ED T Harnett Sarah - [facility], [facility] OFFICE/OUTPATIENT VISIT EST OFFICE/OUTPATIENT VISIT EST 04/29 12:00:00 AM EDT Harnett Sarah - [facility] X-RAY EXAM OF KNEE 3 X-RAY EXAM OF KNEE 3 05/16/2019 12:00:00 AM ED T Harnett Sarah - [facility] X-RAY EXAM OF KNEE 3 X-RAY EXAM OF KNEE 3 05/16/2019 12:00:00 AM ED T Harnett Sarah - [facility] X-RAY EXAM OF KNEE 3 X-RAY EXAM OF KNEE 3 05/16/2019 12:00:00 AM ED T Harnett Sarah - [facility] RSV DNA/RNA AMP PROBE RSV DNA/RNA AMP PROBE 05/12/2019 12:00:00 AM EDT Harnett Sarah - [facility] STREP A AG IA STREP A AG IA 05/12/2019 12:00:00 AM EDT Harnett Sarah - [facility] EXTREMITY STUDY EXTREMITY STUDY 05/12/2019 12:00:00 AM EDT Harnett Sarah - [facility] EMERGENCY DEPT VISIT EMERGENCY DEPT VISIT 05/12/2019 12:00:00 AM ED T Harnett Sarah - [facility] INFLUENZA DNA AMP PROBE INFLUENZA DNA AMP PROBE 05/12/2019 12:00:00 AM EDT Harnett Sarah - [facility] EMERGENCY DEPT VISIT EMERGENCY DEPT VISIT 05/12/2019 12:00:00 AM ED T Harnett Sarah - [facility] RSV DNA/RNA AMP PROBE RSV DNA/RNA AMP PROBE 05/12/2019 12:00:00 AM EDT Harnett Sarah - [facility] STREP A AG IA STREP A AG IA 05/12/2019 12:00:00 AM EDT Harnett Sarah - [facility] INFLUENZA DNA AMP PROBE INFLUENZA DNA AMP PROBE 05/12/2019 12:00:00 AM EDT Harnett Sarah - [facility] EXTREMITY STUDY EXTREMITY STUDY 05/12/2019 12:00:00 AM EDT Harnett Sarah - [facility] STREP A AG IA STREP A AG IA 05/12/2019 12:00:00 AM EDT Harnett Sarah - [facility] INFLUENZA DNA AMP PROBE INFLUENZA DNA AMP PROBE 05/12/2019 12:00:00 AM EDT Harnett Sarah - [facility] EMERGENCY DEPT VISIT EMERGENCY DEPT VISIT 05/12/2019 12:00:00 AM ED T Harnett Sarah - [facility] RSV DNA/RNA AMP PROBE RSV DNA/RNA AMP PROBE 05/12/2019 12:00:00 AM EDT Harnett Sarah - [facility] EXTREMITY STUDY EXTREMITY STUDY 05/12/2019 12:00:00 AM EDT Harnett Sarah - [facility] INFLUENZA DNA AMP PROBE INFLUENZA DNA AMP PROBE 05/12/2019 12:00:00 AM EDT Harnett Sarah - [facility] EMERGENCY DEPT VISIT EMERGENCY DEPT VISIT 05/12/2019 12:00:00 AM ED T Harnett Sarah - [facility] RSV DNA/RNA AMP PROBE RSV DNA/RNA AMP PROBE 05/12/2019 12:00:00 AM EDT Harnett Sarah - [facility] STREP A AG IA STREP A AG IA 05/12/2019 12:00:00 AM EDT Harnett Sarah - [facility] INFLUENZA DNA AMP PROBE INFLUENZA DNA AMP PROBE 05/12/2019 12:00:00 AM EDT Harnett Sarah - [facility] EMERGENCY DEPT VISIT EMERGENCY DEPT VISIT 05/12/2019 12:00:00 AM ED T Harnett Sarah - [facility] RSV DNA/RNA AMP PROBE RSV DNA/RNA AMP PROBE 05/12/2019 12:00:00 AM EDT Harnett Sarah - [facility] STREP A AG IA STREP A AG IA 05/12/2019 12:00:00 AM EDT Harnett Sarah - [facility] THERAPEUTIC EXERCISES THERAPEUTIC EXERCISES 05/09/2019 12:00:00 AM EDT Harnett Sarah - [facility] THERAPEUTIC EXERCISES THERAPEUTIC EXERCISES 05/09/2019 12:00:00 AM EDT Harnett Sarah - [facility] THERAPEUTIC EXERCISES THERAPEUTIC EXERCISES 05/09/2019 12:00:00 AM EDT [facility]ett [facility] [facility], [facility] Therapeutic, prophylactic, or diagnostic injection; Sub Cut/ IM 05/08/2019 12:00:00 AM EDT - 05/08/2019 12:00:00 AM EDT [facility] Toradol Inj Per 15 mg 05/08/2019 12:00:00 AM EDT - 05/08/2019 12:00:00 AM EDT [facility] Office/outpatient visit,est, mod 020 12:00:00 AM EDT - 05/08/2019 12:00:00 AM EDT [facility] THERAPEUTIC EXERCISES THERAPEUTIC EXERCISES 05/03/2019 12:00:00 AM EST Harnett Sarah - [facility], [facility] THERAPEUTIC EXERCISES THERAPEUTIC EXERCISES 05/03/2019 12:00:00 AM EST Harnett Sarah - [facility], [facility] THERAPEUTIC EXERCISES THERAPEUTIC EXERCISES 05/03/2019 12:00:00 AM EST Harnett Sarah - [facility], [facility] OFFICE/OUTPATIENT VISIT EST OFFICE/OUTPATIENT VISIT EST 04/2019 12:00:00 AM EST Harnett Sarah - [facility], [facility] OFFICE/OUTPATIENT VISIT EST OFFICE/OUTPATIENT VISIT EST 04/2019 12:00:00 AM EST Harnett Sarah - [facility], [facility] ASSAY OF TROPONIN QUANT ASSAY OF TROPONIN QUANT 04/27/2019 12:00:00 [facility] CHORIONIC GONADOTROPIN ASSAY CHORIONIC GONADOTROPIN ASSAY 12:00:00 AM [facility] FIBRIN DEGRADATION QUANT FIBRIN DEGRADATION QUANT 04/27/2019 12:00: 00 AM EST Harnett Sarah - [facility], [facility] COMPREHEN METABOLIC PANEL COMPREHEN METABOLIC PANEL 04/27/2019 1 2:00:00 AM EST Harnett Sarah - [facility], [facility] EMERGENCY DEPT VISIT EMERGENCY DEPT VISIT 04/27/2019 12:00:00 AM ES T Harnett Sarah - [facility], [facility] BLOOD COUNT COMPLETE AUTO&AUTO DIFRNTL WBC COUNT COMPLETE CB C W/AUTO DIFF WBC 04/27/2019 12:00:00 AM EST Harnett Sarah - [facility], [facility] ELECTROCARDIOGRAM TRACING ELECTROCARDIOGRAM TRACING 04/27/2019 1 2:00:00 AM EST Harnett Sarah - [facility], [facility] X-RAY EXAM CHEST 2 VIEWS X-RAY EXAM CHEST 2 VIEWS 04/27/2019 12:00: 00 AM EST Harnett Sarah - [facility], [facility] ROUTINE VENIPUNCTURE ROUTINE VENIPUNCTURE 04/27/2019 12:00:00 AM ES T Harnett Sarah - [facility], [facility] COMPREHEN METABOLIC PANEL COMPREHEN METABOLIC PANEL 04/27/2019 1 2:00:00 AM EST Harnett Sarah - [facility], [facility] X-RAY EXAM CHEST 2 VIEWS X-RAY EXAM CHEST 2 VIEWS 04/27/2019 12:00: 00 AM EST Harnett Sarah - [facility], [facility] FIBRIN DEGRADATION QUANT FIBRIN DEGRADATION QUANT 04/27/2019 12:00: 00 AM EST Harnett Sarah - [facility], [facility] BLOOD COUNT COMPLETE AUTO&AUTO DIFRNTL WBC COUNT COMPLETE CB C W/AUTO DIFF WBC 04/27/2019 12:00:00 AM EST Harnett Sarah - [facility], [facility] CHORIONIC GONADOTROPIN ASSAY CHORIONIC GONADOTROPIN ASSAY 12:00:00 AM EST Harnett Sarah - [facility], [facility] EMERGENCY DEPT VISIT EMERGENCY DEPT VISIT 04/27/2019 12:00:00 AM ES T Harnett Sarah - [facility], [facility] ROUTINE VENIPUNCTURE ROUTINE VENIPUNCTURE 04/27/2019 12:00:00 AM ES T Harnett Sarah - [facility], [facility] ELECTROCARDIOGRAM TRACING ELECTROCARDIOGRAM TRACING 04/27/2019 1 2:00:00 AM EST Harnett Sarah - [facility], [facility] ASSAY OF TROPONIN QUANT ASSAY OF TROPONIN QUANT 04/27/2019 12:00:00 AM EST Harnett Sarah - [facility], [facility] ELECTROCARDIOGRAM TRACING ELECTROCARDIOGRAM TRACING 04/27/2019 1 2:00:00 AM EST Harnett Sarah - [facility], [facility] BLOOD COUNT COMPLETE AUTO&AUTO DIFRNTL WBC COUNT COMPLETE CB C W/AUTO DIFF WBC 04/27/2019 12:00:00 AM EST Harnett Sarah - [facility], [facility] EMERGENCY DEPT VISIT EMERGENCY DEPT VISIT 04/27/2019 12:00:00 AM ES T Harnett Sarah - [facility], [facility] COMPREHEN METABOLIC PANEL COMPREHEN METABOLIC PANEL 04/27/2019 1 2:00:00 AM EST Harnett Sarah - [facility], [facility] ROUTINE VENIPUNCTURE ROUTINE VENIPUNCTURE 04/27/2019 12:00:00 AM ES T Harnett Sarah - [facility], [facility] CHORIONIC GONADOTROPIN ASSAY CHORIONIC GONADOTROPIN ASSAY 12:00:00 AM EST Harnett Sarah - [facility], [facility] FIBRIN DEGRADATION QUANT FIBRIN DEGRADATION QUANT 04/27/2019 12:00: 00 AM EST Harnett Sarah - [facility], [facility] X-RAY EXAM CHEST 2 VIEWS X-RAY EXAM CHEST 2 VIEWS 04/27/2019 12:00: 00 AM EST Harnett Sarah - [facility], [facility] ASSAY OF TROPONIN QUANT ASSAY OF TROPONIN QUANT 04/27/2019 12:00:00 AM EST Harnett Sarah - [facility], [facility] CHORIONIC GONADOTROPIN ASSAY CHORIONIC GONADOTROPIN ASSAY 12:00:00 AM EST Harnett Sarah - [facility], [facility] COMPREHEN METABOLIC PANEL COMPREHEN METABOLIC PANEL 04/27/2019 1 2:00:00 AM EST Harnett Sarah - [facility], [facility] BLOOD COUNT COMPLETE AUTO&AUTO DIFRNTL WBC COUNT COMPLETE CB C W/AUTO DIFF WBC 04/27/2019 12:00:00 AM EST Harnett Sarah - [facility], [facility] FIBRIN DEGRADATION QUANT FIBRIN DEGRADATION QUANT 04/27/2019 12:00: 00 AM EST Harnett Sarah - [facility], [facility] ASSAY OF TROPONIN QUANT ASSAY OF TROPONIN QUANT 04/27/2019 12:00:00 AM EST Harnett Sarah - [facility], [facility] X-RAY EXAM CHEST 2 VIEWS X-RAY EXAM CHEST 2 VIEWS 04/27/2019 12:00: 00 AM EST Harnett Sarah - [facility], [facility] ROUTINE VENIPUNCTURE ROUTINE VENIPUNCTURE 04/27/2019 12:00:00 AM ES T Harnett Sarah - [facility], [facility] ELECTROCARDIOGRAM TRACING ELECTROCARDIOGRAM TRACING 04/27/2019 1 2:00:00 AM EST Harnett Sarah - [facility], [facility] EMERGENCY DEPT VISIT EMERGENCY DEPT VISIT 04/27/2019 12:00:00 AM ES T Harnett Sarah - [facility], [facility] COMPREHEN METABOLIC PANEL COMPREHEN METABOLIC PANEL 04/27/2019 1 2:00:00 AM EST Harnett Sarah - [facility], [facility] ROUTINE VENIPUNCTURE ROUTINE VENIPUNCTURE 04/27/2019 12:00:00 AM ES T Harnett Sarah - [facility], [facility] CHORIONIC GONADOTROPIN ASSAY CHORIONIC GONADOTROPIN ASSAY 12:00:00 AM EST Harnett Sarah - [facility], [facility] X-RAY EXAM CHEST 2 VIEWS X-RAY EXAM CHEST 2 VIEWS 04/27/2019 12:00: 00 AM EST Harnett Sarah - [facility], [facility] FIBRIN DEGRADATION QUANT FIBRIN DEGRADATION QUANT 04/27/2019 12:00: 00 AM EST Harnett Sarah - [facility], [facility] ELECTROCARDIOGRAM TRACING ELECTROCARDIOGRAM TRACING 04/27/2019 1 2:00:00 AM EST Harnett Sarah - [facility], [facility] ASSAY OF TROPONIN QUANT ASSAY OF TROPONIN QUANT 04/27/2019 12:00:00 AM EST Harnett Sarah - [facility] EMERGENCY DEPT VISIT EMERGENCY DEPT VISIT 04/27/2019 12:00:00 AM ES T Harnett Sarah - [facility] BLOOD COUNT COMPLETE AUTO&AUTO DIFRNTL WBC COUNT COMPLETE CB C W/AUTO DIFF WBC 04/27/2019 12:00:00 AM EST Harnett Sarah - [facility] X-RAY EXAM OF KNEE 1 OR 2 X-RAY EXAM OF KNEE 1 OR 2 04/24/2019 1 2:00:00 AM EST Harnett Sarah - [facility] POSTOP FOLLOW-UP VISIT POSTOP FOLLOW-UP VISIT 04/24/2019 12:00:00 A M EST Harnett Sarah - [facility] X-RAY EXAM OF KNEE 1 OR 2 X-RAY EXAM OF KNEE 1 OR 2 04/24/2019 1 2:00:00 AM EST Harnett Sarah - [facility] POSTOP FOLLOW-UP VISIT POSTOP FOLLOW-UP VISIT 04/24/2019 12:00:00 A M EST Harnett Sarah - [facility] X-Ray Knee Ap & Lateral 04/24/2019 12:00:00 AM EST [facility] ([facility]) X-RAY EXAM OF KNEE 1 OR 2 X-RAY EXAM OF KNEE 1 OR 2 04/24/2019 1 2:00:00 AM EST Harnett Sarah - [facility] POSTOP FOLLOW-UP VISIT POSTOP FOLLOW-UP VISIT 04/24/2019 12:00:00 A M EST Harnett Sarah - [facility] X-RAY EXAM OF KNEE 1 OR 2 X-RAY EXAM OF KNEE 1 OR 2 04/24/2019 1 2:00:00 AM EST Harnett Sarah - [facility] POSTOP FOLLOW-UP VISIT POSTOP FOLLOW-UP VISIT 04/24/2019 12:00:00 A M EST Harnett Sarah - [facility], [facility] POSTOP FOLLOW-UP VISIT POSTOP FOLLOW-UP VISIT 04/24/2019 12:00:00 A M EST Harnett Sarah - [facility], [facility] X-RAY EXAM OF KNEE 1 OR 2 X-RAY EXAM OF KNEE 1 OR 2 04/24/2019 1 2:00:00 AM EST Harnett Sarah - [facility], [facility] Reposition Left Knee Joint, Open Approach Reposition L eft Knee Joint, Open Approach 04/10/2019 12:00:00 AM EST Harnett Tonja rdes - [facility], [facility] REVISION OF UNSTABLE KNEECAP REVISION OF UNSTABLE KNEECAP 12:00:00 AM EST Harnett Sarah - [facility], [facility] left knee reconstruction left knee reconstruction 04/10/2019 12:00: 00 AM EST Harnett Sarah - [facility], [facility] RECONSTRUCTION KNEE RECONSTRUCTION KNEE 04/10/2019 12:00:00 AM EST Harnett Sarah - [facility], [facility] REVISION OF UNSTABLE KNEECAP REVISION OF UNSTABLE KNEECAP 12:00:00 AM EST Harnett Sarah - [facility], [facility] Reposition Left Knee Joint, Open Approach Reposition L eft Knee Joint, Open Approach 04/10/2019 12:00:00 AM EST Harnett Tonja rdes - [facility], [facility] RECONSTRUCTION KNEE RECONSTRUCTION KNEE 04/10/2019 12:00:00 AM EST Harnett Sarah - [facility], [facility] REVISION OF UNSTABLE KNEECAP REVISION OF UNSTABLE KNEECAP 12:00:00 AM EST Harnett Sarah - [facility], [facility] left knee reconstruction left knee reconstruction 04/10/2019 12:00: 00 AM EST Harnett Sarah - [facility], [facility] REVISION OF UNSTABLE KNEECAP REVISION OF UNSTABLE KNEECAP 12:00:00 AM EST Harnett Sarah - [facility] Reconstruct Patella W/Extensor Realignment/Muscle Advance/Re lease 04/10/2019 12:00:00 AM EST [facility] ([facility]) Reconstruct Patella W/Extensor Realignment/Muscle Advance/Re lease 04/10/2019 12:00:00 AM EST [facility] ([facility]) left knee reconstruction left knee reconstruction 04/10/2019 12:00: 00 AM EST Harnett Sarah - [facility] REVISION OF UNSTABLE KNEECAP REVISION OF UNSTABLE KNEECAP 12:00:00 AM EST Harnett Sarah - [facility], [facility] RECONSTRUCTION KNEE RECONSTRUCTION KNEE 04/10/2019 12:00:00 AM EST Harnett Sarah - [facility], [facility] REVISION OF UNSTABLE KNEECAP REVISION OF UNSTABLE KNEECAP 12:00:00 AM EST Harnett Sarah - [facility] Reposition Left Knee Joint, Open Approach Reposition L eft Knee Joint, Open Approach 04/10/2019 12:00:00 AM EST Harnett Tonja rdes - [facility], [facility] REVISION OF UNSTABLE KNEECAP REVISION OF UNSTABLE KNEECAP 12:00:00 AM EST Harnett Sarah - [facility] RECONSTRUCTION KNEE RECONSTRUCTION KNEE 04/10/2019 12:00:00 AM EST Harnett Sarah - [facility] REVISION OF UNSTABLE KNEECAP REVISION OF UNSTABLE KNEECAP 12:00:00 AM EST Harnett Sarah - [facility] left knee reconstruction left knee reconstruction 04/10/2019 12:00: 00 AM EST Harnett Sarah - [facility] Reposition Left Knee Joint, Open Approach Reposition L eft Knee Joint, Open Approach 04/10/2019 12:00:00 AM EST Harnett Tonja rdes - [facility] left knee reconstruction left knee reconstruction 04/10/2019 12:00: 00 AM EST Harnett Sarah - [facility] REVISION OF UNSTABLE KNEECAP REVISION OF UNSTABLE KNEECAP 12:00:00 AM EST Harnett Sarah - [facility], [facility] REVISION OF UNSTABLE KNEECAP REVISION OF UNSTABLE KNEECAP 12:00:00 AM EST Harnett Sarah - [facility] Reposition Left Knee Joint, Open Approach Reposition L eft Knee Joint, Open Approach 04/10/2019 12:00:00 AM EST Harnett Tonja rdes - [facility], [facility] RECONSTRUCTION KNEE RECONSTRUCTION KNEE 04/10/2019 12:00:00 AM EST Harnett Sarah - [facility], [facility] REVISION OF UNSTABLE KNEECAP REVISION OF UNSTABLE KNEECAP 12:00:00 AM EST Harnett Sarah - [facility], [facility] REVISION OF UNSTABLE KNEECAP REVISION OF UNSTABLE KNEECAP 12:00:00 AM EST Harnett Sarah - [facility] Reposition Left Knee Joint, Open Approach Reposition L eft Knee Joint, Open Approach 04/10/2019 12:00:00 AM EST Harnett Tonja rdes - [facility], [facility] RECONSTRUCTION KNEE RECONSTRUCTION KNEE 04/10/2019 12:00:00 AM EST Harnett Sarah - [facility], [facility] OFFICE/OUTPATIENT VISIT EST OFFICE/OUTPATIENT VISIT EST 05/2019 12:00:00 AM EST Harnett Sarah - [facility] OFFICE/OUTPATIENT VISIT EST OFFICE/OUTPATIENT VISIT EST 05/2019 12:00:00 AM EST Harnett Sarah - [facility] OFFICE/OUTPATIENT VISIT EST OFFICE/OUTPATIENT VISIT EST 05/2019 12:00:00 AM EST Harnett Sarah - [facility] OFFICE/OUTPATIENT VISIT EST OFFICE/OUTPATIENT VISIT EST 05/2019 12:00:00 AM EST Harnett Sarah - [facility], [facility] OFFICE/OUTPATIENT VISIT EST OFFICE/OUTPATIENT VISIT EST 05/2019 12:00:00 AM EST Harnett Sarah - [facility], [facility] OFFICE/OUTPATIENT VISIT EST OFFICE/OUTPATIENT VISIT EST 05/2019 12:00:00 AM EST Harnett Sarah - [facility], [facility] ONDANSETRON HCL INJECTION ONDANSETRON HCL INJECTION 04/03/2019 1 2:00:00 AM EST Harnett Sarah - [facility], [facility] URINE CULTURE/COLONY COUNT URINE CULTURE/COLONY COUNT 2019 12:00:00 AM EST Harnett Sarah - [facility], [facility] C-REACTIVE PROTEIN C-REACTIVE PROTEIN 04/03/2019 12:00:00 AM EST Harnett Sarah - [facility], [facility] EMERGENCY DEPT VISIT EMERGENCY DEPT VISIT 04/03/2019 12:00:00 AM ES T Harnett Sarah - [facility], [facility] CT ABD & PELVIS W/O CONTRAST CT ABD & PELVIS W/O CONTRAST 12:00:00 AM EST Harnett Sarah - [facility], [facility] THER/PROPH/DIAG INJ IV PUSH THER/PROPH/DIAG INJ IV PUSH 04/2019 12:00:00 AM EST Harnett Sarah - [facility], [facility] ASSAY OF LIPASE ASSAY OF LIPASE 04/03/2019 12:00:00 AM EST Harnett Sarah - [facility], [facility] BLOOD COUNT COMPLETE AUTO&AUTO DIFRNTL WBC COUNT COMPLETE CB C W/AUTO DIFF WBC 04/03/2019 12:00:00 AM EST Harnett Sarah - [facility] ROUTINE VENIPUNCTURE ROUTINE VENIPUNCTURE 04/03/2019 12:00:00 AM ES T Harnett Sarah - [facility] COMPREHEN METABOLIC PANEL COMPREHEN METABOLIC PANEL 04/03/2019 1 2:00:00 AM EST Harnett Sarah - [facility] URINALYSIS AUTO W/SCOPE URINALYSIS AUTO W/SCOPE 04/03/2019 12:00:00 AM EST Harnett Sarah - [facility], [facility] CHORIONIC GONADOTROPIN ASSAY CHORIONIC GONADOTROPIN ASSAY 12:00:00 AM EST Harnett Sarah - [facility], [facility] Catheterize for urine spec Catheterize for urine spec 2019 12:00:00 AM EST Harnett Sarah - [facility], [facility] URINALYSIS AUTO W/SCOPE URINALYSIS AUTO W/SCOPE 04/03/2019 12:00:00 AM EST Harnett Sarah - [facility], [facility] EMERGENCY DEPT VISIT EMERGENCY DEPT VISIT 04/03/2019 12:00:00 AM ES T Harnett Sarah - [facility], [facility] ONDANSETRON HCL INJECTION ONDANSETRON HCL INJECTION 04/03/2019 1 2:00:00 AM EST Harnett Sarah - [facility], [facility] URINE CULTURE/COLONY COUNT URINE CULTURE/COLONY COUNT 2019 12:00:00 AM EST Harnett Sarah - [facility], [facility] C-REACTIVE PROTEIN C-REACTIVE PROTEIN 04/03/2019 12:00:00 AM EST Harnett Sarah - [facility] ROUTINE VENIPUNCTURE ROUTINE VENIPUNCTURE 04/03/2019 12:00:00 AM ES T Harnett Sarah - [facility], [facility] CHORIONIC GONADOTROPIN ASSAY CHORIONIC GONADOTROPIN ASSAY 12:00:00 AM EST Harnett Sarah - [facility] Catheterize for urine spec Catheterize for urine spec 2019 12:00:00 AM EST Harnett Sarah - [facility] BLOOD COUNT COMPLETE AUTO&AUTO DIFRNTL WBC COUNT COMPLETE CB C W/AUTO DIFF WBC 04/03/2019 12:00:00 AM EST Harnett Sarah - [facility] COMPREHEN METABOLIC PANEL COMPREHEN METABOLIC PANEL 04/03/2019 1 2:00:00 AM EST Harnett Sarah - [facility] CT ABD & PELVIS W/O CONTRAST CT ABD & PELVIS W/O CONTRAST 12:00:00 AM EST Harnett Sarah - [facility], [facility] THER/PROPH/DIAG INJ IV PUSH THER/PROPH/DIAG INJ IV PUSH 04/2019 12:00:00 AM EST Harnett Sarah - [facility], [facility] ASSAY OF LIPASE ASSAY OF LIPASE 04/03/2019 12:00:00 AM EST Harnett Sarah - [facility], [facility] THER/PROPH/DIAG INJ IV PUSH THER/PROPH/DIAG INJ IV PUSH 04/2019 12:00:00 AM EST Harnett Sarah - [facility], [facility] BLOOD COUNT COMPLETE AUTO&AUTO DIFRNTL WBC COUNT COMPLETE CB C W/AUTO DIFF WBC 04/03/2019 12:00:00 AM EST Harnett Sarah - [facility], [facility] CHORIONIC GONADOTROPIN ASSAY CHORIONIC GONADOTROPIN ASSAY 12:00:00 AM EST Harnett Sarah - [facility], [facility] Catheterize for urine spec Catheterize for urine spec 2019 12:00:00 AM EST Harnett Sarah - [facility], [facility] ASSAY OF LIPASE ASSAY OF LIPASE 04/03/2019 12:00:00 AM EST Harnett Sarah - [facility], [facility] URINE CULTURE/COLONY COUNT URINE CULTURE/COLONY COUNT 2019 12:00:00 AM EST Harnett Sarah - [facility], [facility] URINALYSIS AUTO W/SCOPE URINALYSIS AUTO W/SCOPE 04/03/2019 12:00:00 AM EST Harnett Sarah - [facility], [facility] C-REACTIVE PROTEIN C-REACTIVE PROTEIN 04/03/2019 12:00:00 AM EST Harnett Sarah - [facility], [facility] ROUTINE VENIPUNCTURE ROUTINE VENIPUNCTURE 04/03/2019 12:00:00 AM ES T Harnett Sarah - [facility], [facility] ONDANSETRON HCL INJECTION ONDANSETRON HCL INJECTION 04/03/2019 1 2:00:00 AM EST Harnett Sarah - [facility] COMPREHEN METABOLIC PANEL COMPREHEN METABOLIC PANEL 04/03/2019 1 2:00:00 AM EST Harnett Sarah - [facility] CT ABD & PELVIS W/O CONTRAST CT ABD & PELVIS W/O CONTRAST 12:00:00 AM EST Harnett Sarah - [facility] EMERGENCY DEPT VISIT EMERGENCY DEPT VISIT 04/03/2019 12:00:00 AM ES T Harnettjohn Smith - [facility], [facility] BLOOD COUNT COMPLETE AUTO&AUTO DIFRNTL WBC COUNT COMPLETE CB C W/AUTO DIFF WBC 04/03/2019 12:00:00 AM EST Harnett Sarah - [facility] ONDANSETRON HCL INJECTION ONDANSETRON HCL INJECTION 04/03/2019 1 2:00:00 AM EST Harnett Sarah - [facility] URINE CULTURE/COLONY COUNT URINE CULTURE/COLONY COUNT 2019 12:00:00 AM EST Harnett Sarah - [facility], [facility] C-REACTIVE PROTEIN C-REACTIVE PROTEIN 04/03/2019 12:00:00 AM EST Harnett Sarah - [facility], [facility] CHORIONIC GONADOTROPIN ASSAY CHORIONIC GONADOTROPIN ASSAY 12:00:00 AM EST Harnett Sarah - [facility], [facility] ASSAY OF LIPASE ASSAY OF LIPASE 04/03/2019 12:00:00 AM EST Harnett Sarah - [facility] THER/PROPH/DIAG INJ IV PUSH THER/PROPH/DIAG INJ IV PUSH 04/2019 12:00:00 AM EST Harnett Sarah - [facility] Catheterize for urine spec Catheterize for urine spec 2019 12:00:00 AM EST Harnett Sarah - [facility], [facility] COMPREHEN METABOLIC PANEL COMPREHEN METABOLIC PANEL 04/03/2019 1 2:00:00 AM EST Harnett Sarah - [facility] URINALYSIS AUTO W/SCOPE URINALYSIS AUTO W/SCOPE 04/03/2019 12:00:00 AM EST Harnett Sarah - [facility], [facility] ROUTINE VENIPUNCTURE ROUTINE VENIPUNCTURE 04/03/2019 12:00:00 AM ES T Harnett Sarah - [facility], [facility] EMERGENCY DEPT VISIT EMERGENCY DEPT VISIT 04/03/2019 12:00:00 AM ES T Harnett Sarah - [facility], [facility] CT ABD & PELVIS W/O CONTRAST CT ABD & PELVIS W/O CONTRAST 12:00:00 AM EST Harnett Sarah - [facility], [facility] BLOOD COUNT COMPLETE AUTO&AUTO DIFRNTL WBC COUNT COMPLETE CB C W/AUTO DIFF WBC 04/03/2019 12:00:00 AM EST Harnett Sarah - [facility], [facility] ROUTINE VENIPUNCTURE ROUTINE VENIPUNCTURE 04/03/2019 12:00:00 AM ES T Harnett Sarah - [facility], [facility] COMPREHEN METABOLIC PANEL COMPREHEN METABOLIC PANEL 04/03/2019 1 2:00:00 AM EST Harnett Sarah - [facility], [facility] CT ABD & PELVIS W/O CONTRAST CT ABD & PELVIS W/O CONTRAST 12:00:00 AM EST Harnett Sarah - [facility], [facility] URINALYSIS AUTO W/SCOPE URINALYSIS AUTO W/SCOPE 04/03/2019 12:00:00 AM EST Harnett Sarah - [facility], [facility] C-REACTIVE PROTEIN C-REACTIVE PROTEIN 04/03/2019 12:00:00 AM EST Harnett Sarah - [facility], [facility] ASSAY OF LIPASE ASSAY OF LIPASE 04/03/2019 12:00:00 AM EST Harnett Sarah - [facility], [facility] Catheterize for urine spec Catheterize for urine spec 2019 12:00:00 AM EST Harnett Sarah - [facility], [facility] ONDANSETRON HCL INJECTION ONDANSETRON HCL INJECTION 04/03/2019 1 2:00:00 AM EST Harnett Sarah - [facility] URINE CULTURE/COLONY COUNT URINE CULTURE/COLONY COUNT 2019 12:00:00 AM EST Harnett Sarah - [facility], [facility] THER/PROPH/DIAG INJ IV PUSH THER/PROPH/DIAG INJ IV PUSH /0 04/2019 12:00:00 AM EST Harnett Sarah - [facility] CHORIONIC GONADOTROPIN ASSAY CHORIONIC GONADOTROPIN ASSAY 12:00:00 AM EST Harnett Sarah - [facility], [facility] EMERGENCY DEPT VISIT EMERGENCY DEPT VISIT 04/03/2019 12:00:00 AM ES T Harnett Sarah - [facility], [facility] THER/PROPH/DIAG INJ IV PUSH THER/PROPH/DIAG INJ IV PUSH 04/2019 12:00:00 AM EST Harnett Sarah - [facility] C-REACTIVE PROTEIN C-REACTIVE PROTEIN 04/03/2019 12:00:00 AM EST Harnett Sarah - [facility], [facility] COMPREHEN METABOLIC PANEL COMPREHEN METABOLIC PANEL 04/03/2019 1 2:00:00 AM EST Harnett Sarah - [facility], [facility] ROUTINE VENIPUNCTURE ROUTINE VENIPUNCTURE 04/03/2019 12:00:00 AM ES T Harnett Sarah - [facility] URINALYSIS AUTO W/SCOPE URINALYSIS AUTO W/SCOPE 04/03/2019 12:00:00 AM EST Harnett Sarah - [facility] BLOOD COUNT COMPLETE AUTO&AUTO DIFRNTL WBC COUNT COMPLETE CB C W/AUTO DIFF WBC 04/03/2019 12:00:00 AM EST [facility]arnett Sarah - [facility] EMERGENCY DEPT VISIT EMERGENCY DEPT VISIT 04/03/2019 12:00:00 AM ES T Harnett Sarah - [facility] ONDANSETRON HCL INJECTION ONDANSETRON HCL INJECTION 04/03/2019 1 2:00:00 AM EST Harnett Sarah - [facility], [facility] CHORIONIC GONADOTROPIN ASSAY CHORIONIC GONADOTROPIN ASSAY 12:00:00 AM EST Harnett Sarah - [facility], [facility] URINE CULTURE/COLONY COUNT URINE CULTURE/COLONY COUNT 2019 12:00:00 AM EST Harnett Sarah - [facility], [facility] Catheterize for urine spec Catheterize for urine spec 2019 12:00:00 AM EST Harnett Sarah - [facility], [facility] CT ABD & PELVIS W/O CONTRAST CT ABD & PELVIS W/O CONTRAST 12:00:00 AM EST Harnett Sarah - [facility], [facility] ASSAY OF LIPASE ASSAY OF LIPASE 04/03/2019 12:00:00 AM EST Harnett Sarah - [facility], [facility] C-REACTIVE PROTEIN C-REACTIVE PROTEIN 04/03/2019 12:00:00 AM EST Harnett Sarah - [facility], [facility] Catheterize for urine spec Catheterize for urine spec 2019 12:00:00 AM EST Harnett Sarah - [facility], [facility] BLOOD COUNT COMPLETE AUTO&AUTO DIFRNTL WBC COUNT COMPLETE CB C W/AUTO DIFF WBC 04/03/2019 12:00:00 AM EST Harnett Sarah - [facility] COMPREHEN METABOLIC PANEL COMPREHEN METABOLIC PANEL 04/03/2019 1 2:00:00 AM EST Harnett Sarah - [facility], [facility] CHORIONIC GONADOTROPIN ASSAY CHORIONIC GONADOTROPIN ASSAY 12:00:00 AM EST Harnett Sarah - [facility], [facility] ONDANSETRON HCL INJECTION ONDANSETRON HCL INJECTION 04/03/2019 1 2:00:00 AM EST Harnett Sarah - [facility], [facility] URINE CULTURE/COLONY COUNT URINE CULTURE/COLONY COUNT 2019 12:00:00 AM EST Harnett Sarah - [facility], [facility] CT ABD & PELVIS W/O CONTRAST CT ABD & PELVIS W/O CONTRAST 12:00:00 AM EST Harnett Sarah - [facility] ROUTINE VENIPUNCTURE ROUTINE VENIPUNCTURE 04/03/2019 12:00:00 AM ES T Harnett Sarah - [facility], [facility] EMERGENCY DEPT VISIT EMERGENCY DEPT VISIT 04/03/2019 12:00:00 AM ES T Harnett Sarah - [facility] URINALYSIS AUTO W/SCOPE URINALYSIS AUTO W/SCOPE 04/03/2019 12:00:00 AM EST Harnett Sarah - [facility], [facility] THER/PROPH/DIAG INJ IV PUSH THER/PROPH/DIAG INJ IV PUSH 04/2019 12:00:00 AM EST Harnett Sarah - [facility], [facility] ASSAY OF LIPASE ASSAY OF LIPASE 04/03/2019 12:00:00 AM EST Harnett Sarah - [facility] URINE CULTURE/COLONY COUNT URINE CULTURE/COLONY COUNT 2019 12:00:00 AM EST Harnett Sarah - [facility] OFFICE/OUTPATIENT VISIT EST OFFICE/OUTPATIENT VISIT EST 03/02 12:00:00 AM EST Harnett Sarah - [facility] OFFICE/OUTPATIENT VISIT EST OFFICE/OUTPATIENT VISIT EST 03/02 12:00:00 AM EST Harnett Sarah - [facility] URINE CULTURE/COLONY COUNT URINE CULTURE/COLONY COUNT 2019 12:00:00 AM EST Harnett Sarah - [facility] URINE CULTURE/COLONY COUNT URINE CULTURE/COLONY COUNT 2019 12:00:00 AM EST Harnett Sarah - [facility], [facility] URINE CULTURE/COLONY COUNT URINE CULTURE/COLONY COUNT 2019 12:00:00 AM EST Harnett Sarah - [facility] URINE CULTURE/COLONY COUNT URINE CULTURE/COLONY COUNT 2019 12:00:00 AM EST Harnett Sarah - [facility], [facility] URINE CULTURE/COLONY COUNT URINE CULTURE/COLONY COUNT 2019 12:00:00 AM EST Harnett Sarah - [facility], [facility] URINE CULTURE/COLONY COUNT URINE CULTURE/COLONY COUNT 2019 12:00:00 AM EST Harnett Sarah - [facility], [facility] URINE CULTURE/COLONY COUNT URINE CULTURE/COLONY COUNT 2019 12:00:00 AM EST Harnett Sarah - [facility], [facility] URINE CULTURE/COLONY COUNT URINE CULTURE/COLONY COUNT 2019 12:00:00 AM EST Harnett Sarah - [facility], [facility] CHORIONIC GONADOTROPIN ASSAY CHORIONIC GONADOTROPIN ASSAY 12:00:00 AM EST Harnett Sarah - [facility], [facility] ASSAY OF AMYLASE ASSAY OF AMYLASE 02/18/2019 12:00:00 AM EST Harnett Sarah - [facility], [facility] COMPREHEN METABOLIC PANEL COMPREHEN METABOLIC PANEL 02/18/2019 1 2:00:00 AM EST Harnett Sarah - [facility], [facility] EMERGENCY DEPT VISIT EMERGENCY DEPT VISIT 02/18/2019 12:00:00 AM ES T Harnett Sarah - [facility], [facility] CT ABD & PELV W/CONTRAST CT ABD & PELV W/CONTRAST 02/18/2019 12:00: 00 AM EST Harnett Sarah - [facility], [facility] THROMBOPLASTIN TIME PARTIAL THROMBOPLASTIN TIME PARTIAL 01/30 12:00:00 AM EST Harnett Sarah - [facility], [facility] TRANSVAGINAL US NON-OB TRANSVAGINAL US NON-OB 02/18/2019 12:00:00 A M EST Harnett Sarah - [facility], [facility] BLOOD COUNT COMPLETE AUTO&AUTO DIFRNTL WBC COUNT COMPLETE CB C W/AUTO DIFF WBC 02/18/2019 12:00:00 AM EST Harnett Sarah - [facility] C-REACTIVE PROTEIN C-REACTIVE PROTEIN 02/18/2019 12:00:00 AM EST Harnett Sarah - [facility] KETOROLAC TROMETHAMINE INJ KETOROLAC TROMETHAMINE INJ 2018 12:00:00 AM EST Harnett Sarah - [facility] ROUTINE VENIPUNCTURE ROUTINE VENIPUNCTURE 02/18/2019 12:00:00 AM ES T Harnett Sarah - [facility] ROUTINE VENIPUNCTURE ROUTINE VENIPUNCTURE 02/18/2019 12:00:00 AM ES T Harnett Sarah - [facility] THER/PROPH/DIAG INJ IV PUSH THER/PROPH/DIAG INJ IV PUSH 01/30 12:00:00 AM EST Harnett Sarah - [facility], [facility] ASSAY OF LIPASE ASSAY OF LIPASE 02/18/2019 12:00:00 AM EST Harnett Sarah - [facility] EMERGENCY DEPT VISIT EMERGENCY DEPT VISIT 02/18/2019 12:00:00 AM ES T Harnett Sarah - [facility] C-REACTIVE PROTEIN C-REACTIVE PROTEIN 02/18/2019 12:00:00 AM EST Harnett Sarah - [facility], [facility] THROMBOPLASTIN TIME PARTIAL THROMBOPLASTIN TIME PARTIAL 01/30 12:00:00 AM EST Harnett Sarah - [facility] KETOROLAC TROMETHAMINE INJ KETOROLAC TROMETHAMINE INJ 2018 12:00:00 AM EST Harnett Sarah - [facility] ROUTINE VENIPUNCTURE ROUTINE VENIPUNCTURE 02/18/2019 12:00:00 AM ES T Harnett Sarah - [facility] CHORIONIC GONADOTROPIN ASSAY CHORIONIC GONADOTROPIN ASSAY 12:00:00 AM EST Harnett Sarah - [facility], [facility] ASSAY OF LIPASE ASSAY OF LIPASE 02/18/2019 12:00:00 AM EST Harnett Sarah - [facility] COMPREHEN METABOLIC PANEL COMPREHEN METABOLIC PANEL 02/18/2019 1 2:00:00 AM EST Harnett Sarah - [facility], [facility] BLOOD COUNT COMPLETE AUTO&AUTO DIFRNTL WBC COUNT COMPLETE CB C W/AUTO DIFF WBC 02/18/2019 12:00:00 AM EST Harnett Sarah - [facility] THER/PROPH/DIAG INJ IV PUSH THER/PROPH/DIAG INJ IV PUSH 01/30 12:00:00 AM EST Harnett Sarah - [facility], [facility] CT ABD & PELV W/CONTRAST CT ABD & PELV W/CONTRAST 02/18/2019 12:00: 00 AM EST Harnett Sarah - [facility], [facility] TRANSVAGINAL US NON-OB TRANSVAGINAL US NON-OB 02/18/2019 12:00:00 A M EST Harnett Sarah - [facility], [facility] ASSAY OF AMYLASE ASSAY OF AMYLASE 02/18/2019 12:00:00 AM EST Harnett Sarah - [facility], [facility] ROUTINE VENIPUNCTURE ROUTINE VENIPUNCTURE 02/18/2019 12:00:00 AM ES T Harnett Sarah - [facility], [facility] THROMBOPLASTIN TIME PARTIAL THROMBOPLASTIN TIME PARTIAL 01/30 12:00:00 AM EST Harnett Sarah - [facility], [facility] KETOROLAC TROMETHAMINE INJ KETOROLAC TROMETHAMINE INJ 2018 12:00:00 AM EST Harnett Sarah - [facility], [facility] ROUTINE VENIPUNCTURE ROUTINE VENIPUNCTURE 02/18/2019 12:00:00 AM ES T Harnett Sarah - [facility], [facility] THER/PROPH/DIAG INJ IV PUSH THER/PROPH/DIAG INJ IV PUSH 01/30 12:00:00 AM EST Harnett Sarah - [facility], [facility] CHORIONIC GONADOTROPIN ASSAY CHORIONIC GONADOTROPIN ASSAY 12:00:00 AM EST Harnett Sarah - [facility] TRANSVAGINAL US NON-OB TRANSVAGINAL US NON-OB 02/18/2019 12:00:00 A M EST Harnett Sarah - [facility] BLOOD COUNT COMPLETE AUTO&AUTO DIFRNTL WBC COUNT COMPLETE CB C W/AUTO DIFF WBC 02/18/2019 12:00:00 AM EST Harnett Sarah - [facility] ROUTINE VENIPUNCTURE ROUTINE VENIPUNCTURE 02/18/2019 12:00:00 AM ES T Harnett Sarah - [facility], [facility] EMERGENCY DEPT VISIT EMERGENCY DEPT VISIT 02/18/2019 12:00:00 AM ES T Harnett Sarah - [facility], [facility] ASSAY OF LIPASE ASSAY OF LIPASE 02/18/2019 12:00:00 AM EST Harnett Sarah - [facility], [facility] CT ABD & PELV W/CONTRAST CT ABD & PELV W/CONTRAST 02/18/2019 12:00: 00 AM EST Harnett Sarah - [facility] COMPREHEN METABOLIC PANEL COMPREHEN METABOLIC PANEL 02/18/2019 1 2:00:00 AM EST Harnett Sarah - [facility], [facility] ASSAY OF AMYLASE ASSAY OF AMYLASE 02/18/2019 12:00:00 AM EST Harnett Sarah - [facility], [facility] C-REACTIVE PROTEIN C-REACTIVE PROTEIN 02/18/2019 12:00:00 AM EST Harnett Sarah - [facility] ROUTINE VENIPUNCTURE ROUTINE VENIPUNCTURE 02/18/2019 12:00:00 AM ES T Harnett Sarah - [facility], [facility] COMPREHEN METABOLIC PANEL COMPREHEN METABOLIC PANEL 02/18/2019 1 2:00:00 AM EST Harnett Sarah - [facility], [facility] CHORIONIC GONADOTROPIN ASSAY CHORIONIC GONADOTROPIN ASSAY 12:00:00 AM EST Harnett Sarah - [facility] ROUTINE VENIPUNCTURE ROUTINE VENIPUNCTURE 02/18/2019 12:00:00 AM ES T Harnett Sarah - [facility], [facility] C-REACTIVE PROTEIN C-REACTIVE PROTEIN 02/18/2019 12:00:00 AM EST Harnett Sarah - [facility], [facility] ASSAY OF LIPASE ASSAY OF LIPASE 02/18/2019 12:00:00 AM EST Harnett Sarah - [facility], [facility] ASSAY OF AMYLASE ASSAY OF AMYLASE 02/18/2019 12:00:00 AM EST Harnett Sarah - [facility], [facility] THER/PROPH/DIAG INJ IV PUSH THER/PROPH/DIAG INJ IV PUSH 01/30 12:00:00 AM EST Harnett Sarah - [facility], [facility] KETOROLAC TROMETHAMINE INJ KETOROLAC TROMETHAMINE INJ 2018 12:00:00 AM EST Harnett Sarah - [facility], [facility] CT ABD & PELV W/CONTRAST CT ABD & PELV W/CONTRAST 02/18/2019 12:00: 00 AM EST Harnett Sarah - [facility], [facility] EMERGENCY DEPT VISIT EMERGENCY DEPT VISIT 02/18/2019 12:00:00 AM ES T Harnett Sarah - [facility], [facility] THROMBOPLASTIN TIME PARTIAL THROMBOPLASTIN TIME PARTIAL 01/30 12:00:00 AM EST Harnett Sarah - [facility], [facility] BLOOD COUNT COMPLETE AUTO&AUTO DIFRNTL WBC COUNT COMPLETE CB C W/AUTO DIFF WBC 02/18/2019 12:00:00 AM EST Harnett Sarah - [facility] TRANSVAGINAL US NON-OB TRANSVAGINAL US NON-OB 02/18/2019 12:00:00 A M EST Harnett Sarah - [facility], [facility] THROMBOPLASTIN TIME PARTIAL THROMBOPLASTIN TIME PARTIAL 01/30 12:00:00 AM EST Harnett Sarah - [facility], [facility] CHORIONIC GONADOTROPIN ASSAY CHORIONIC GONADOTROPIN ASSAY 12:00:00 AM EST Harnett Sarah - [facility] ROUTINE VENIPUNCTURE ROUTINE VENIPUNCTURE 02/18/2019 12:00:00 AM ES T Harnett Sarah - [facility], [facility] ROUTINE VENIPUNCTURE ROUTINE VENIPUNCTURE 02/18/2019 12:00:00 AM ES T Harnett Sarah - [facility], [facility] ASSAY OF AMYLASE ASSAY OF AMYLASE 02/18/2019 12:00:00 AM EST Harnett Sarah - [facility] BLOOD COUNT COMPLETE AUTO&AUTO DIFRNTL WBC COUNT COMPLETE CB C W/AUTO DIFF WBC 02/18/2019 12:00:00 AM EST Harnett Sarah - [facility] THER/PROPH/DIAG INJ IV PUSH THER/PROPH/DIAG INJ IV PUSH 01/30 12:00:00 AM EST Harnett Sarah - [facility], [facility] ASSAY OF LIPASE ASSAY OF LIPASE 02/18/2019 12:00:00 AM EST Harnett Sarah - [facility], [facility] C-REACTIVE PROTEIN C-REACTIVE PROTEIN 02/18/2019 12:00:00 AM EST Harnett Sarah - [facility] CT ABD & PELV W/CONTRAST CT ABD & PELV W/CONTRAST 02/18/2019 12:00: 00 AM EST Harnett Sarah - [facility] TRANSVAGINAL US NON-OB TRANSVAGINAL US NON-OB 02/18/2019 12:00:00 A M EST Harnett Sarah - [facility] COMPREHEN METABOLIC PANEL COMPREHEN METABOLIC PANEL 02/18/2019 1 2:00:00 AM EST Harnett Sarah - [facility] KETOROLAC TROMETHAMINE INJ KETOROLAC TROMETHAMINE INJ 2018 12:00:00 AM EST Harnett Sarah - [facility] EMERGENCY DEPT VISIT EMERGENCY DEPT VISIT 02/18/2019 12:00:00 AM ES T Harnett Sarah - [facility], [facility] EMERGENCY DEPT VISIT EMERGENCY DEPT VISIT 02/18/2019 12:00:00 AM ES T Harnett Sarah - [facility], [facility] COMPREHEN METABOLIC PANEL COMPREHEN METABOLIC PANEL 02/18/2019 1 2:00:00 AM EST Harnett Sarah - [facility], [facility] TRANSVAGINAL US NON-OB TRANSVAGINAL US NON-OB 02/18/2019 12:00:00 A M EST Harnett Sarah - [facility], [facility] KETOROLAC TROMETHAMINE INJ KETOROLAC TROMETHAMINE INJ 2018 12:00:00 AM EST Harnett Sarah - [facility], [facility] ROUTINE VENIPUNCTURE ROUTINE VENIPUNCTURE 02/18/2019 12:00:00 AM ES T Harnett Sarah - [facility], [facility] CHORIONIC GONADOTROPIN ASSAY CHORIONIC GONADOTROPIN ASSAY 12:00:00 AM EST Harnett Sarah - [facility], [facility] ASSAY OF LIPASE ASSAY OF LIPASE 02/18/2019 12:00:00 AM EST Harnett Sarah - [facility], [facility] THER/PROPH/DIAG INJ IV PUSH THER/PROPH/DIAG INJ IV PUSH 01/30 12:00:00 AM EST Harnett Sarah - [facility], [facility] ASSAY OF AMYLASE ASSAY OF AMYLASE 02/18/2019 12:00:00 AM EST Harnett Sarah - [facility], [facility] BLOOD COUNT COMPLETE AUTO&AUTO DIFRNTL WBC COUNT COMPLETE CB C W/AUTO DIFF WBC 02/18/2019 12:00:00 AM EST Harnett Sarah - [facility] C-REACTIVE PROTEIN C-REACTIVE PROTEIN 02/18/2019 12:00:00 AM EST Harnett Sarah - [facility], [facility] ROUTINE VENIPUNCTURE ROUTINE VENIPUNCTURE 02/18/2019 12:00:00 AM ES T Harnett Sarah - [facility] CT ABD & PELV W/CONTRAST CT ABD & PELV W/CONTRAST 02/18/2019 12:00: 00 AM EST Harnett Sarah - [facility] THROMBOPLASTIN TIME PARTIAL THROMBOPLASTIN TIME PARTIAL 01/30 12:00:00 AM EST Harnett Sarah - [facility], [facility] ASSAY OF AMYLASE ASSAY OF AMYLASE 02/18/2019 12:00:00 AM EST Harnett Sarah - [facility] ROUTINE VENIPUNCTURE ROUTINE VENIPUNCTURE 02/18/2019 12:00:00 AM ES T Harnett Sarah - [facility] COMPREHEN METABOLIC PANEL COMPREHEN METABOLIC PANEL 02/18/2019 1 2:00:00 AM EST Harnett Sarah - [facility] BLOOD COUNT COMPLETE AUTO&AUTO DIFRNTL WBC COUNT COMPLETE CB C W/AUTO DIFF WBC 02/18/2019 12:00:00 AM EST Harnett Sarah - [facility] THER/PROPH/DIAG INJ IV PUSH THER/PROPH/DIAG INJ IV PUSH 01/30 12:00:00 AM EST Harnett Sarah - [facility] CHORIONIC GONADOTROPIN ASSAY CHORIONIC GONADOTROPIN ASSAY 12:00:00 AM EST Harnett Sarah - [facility] KETOROLAC TROMETHAMINE INJ KETOROLAC TROMETHAMINE INJ 2018 12:00:00 AM EST Harnett Sarah - [facility] THROMBOPLASTIN TIME PARTIAL THROMBOPLASTIN TIME PARTIAL 01/30 12:00:00 AM EST Harnett Sarah - [facility] ASSAY OF LIPASE ASSAY OF LIPASE 02/18/2019 12:00:00 AM EST Harnett Sarah - [facility] C-REACTIVE PROTEIN C-REACTIVE PROTEIN 02/18/2019 12:00:00 AM EST Harnett Sarah - [facility] ROUTINE VENIPUNCTURE ROUTINE VENIPUNCTURE 02/18/2019 12:00:00 AM ES T Harnett Sarah - [facility] TRANSVAGINAL US NON-OB TRANSVAGINAL US NON-OB 02/18/2019 12:00:00 A M EST Harnett Sarah - [facility], [facility] EMERGENCY DEPT VISIT EMERGENCY DEPT VISIT 02/18/2019 12:00:00 AM ES T Harnett Sarah - [facility], [facility] CT ABD & PELV W/CONTRAST CT ABD & PELV W/CONTRAST 02/18/2019 12:00: 00 AM EST Harnett Sarah - [facility], [facility] EMERGENCY DEPT VISIT EMERGENCY DEPT VISIT 02/18/2019 12:00:00 AM ES T Harnett Sarah - [facility], [facility] KETOROLAC TROMETHAMINE INJ KETOROLAC TROMETHAMINE INJ 2018 12:00:00 AM EST Harnett Sarah - [facility], [facility] C-REACTIVE PROTEIN C-REACTIVE PROTEIN 02/18/2019 12:00:00 AM EST Harnett Sarah - [facility], [facility] COMPREHEN METABOLIC PANEL COMPREHEN METABOLIC PANEL 02/18/2019 1 2:00:00 AM EST Harnett Sarah - [facility], [facility] CT ABD & PELV W/CONTRAST CT ABD & PELV W/CONTRAST 02/18/2019 12:00: 00 AM EST Harnett Sarah - [facility], [facility] ROUTINE VENIPUNCTURE ROUTINE VENIPUNCTURE 02/18/2019 12:00:00 AM ES T Harnett Sarah - [facility], [facility] CHORIONIC GONADOTROPIN ASSAY CHORIONIC GONADOTROPIN ASSAY 12:00:00 AM EST Harnett Sarah - [facility], [facility] ROUTINE VENIPUNCTURE ROUTINE VENIPUNCTURE 02/18/2019 12:00:00 AM ES T Harnett Sarah - [facility], [facility] ASSAY OF AMYLASE ASSAY OF AMYLASE 02/18/2019 12:00:00 AM EST Harnett Sarah - [facility], [facility] THROMBOPLASTIN TIME PARTIAL THROMBOPLASTIN TIME PARTIAL 01/30 12:00:00 AM EST Harnett Sarah - [facility] TRANSVAGINAL US NON-OB TRANSVAGINAL US NON-OB 02/18/2019 12:00:00 A M EST Harnett Sarah - [facility] ASSAY OF LIPASE ASSAY OF LIPASE 02/18/2019 12:00:00 AM EST Harnett Sarah - [facility] BLOOD COUNT COMPLETE AUTO&AUTO DIFRNTL WBC COUNT COMPLETE CB C W/AUTO DIFF WBC 02/18/2019 12:00:00 AM EST Harnett Sarah - [facility] THER/PROPH/DIAG INJ IV PUSH THER/PROPH/DIAG INJ IV PUSH 01/30 12:00:00 AM EST Harnett Sarah - [facility] CHORIONIC GONADOTROPIN ASSAY CHORIONIC GONADOTROPIN ASSAY 12:00:00 AM EST Harnett Sarah - [facility] THROMBOPLASTIN TIME PARTIAL THROMBOPLASTIN TIME PARTIAL 01/30 12:00:00 AM EST Harnett Sarah - [facility] C-REACTIVE PROTEIN C-REACTIVE PROTEIN 02/18/2019 12:00:00 AM EST Harnett Sarah - [facility] ASSAY OF LIPASE ASSAY OF LIPASE 02/18/2019 12:00:00 AM EST Harnett Sarah - [facility] THER/PROPH/DIAG INJ IV PUSH THER/PROPH/DIAG INJ IV PUSH 01/30 12:00:00 AM EST Harnett Sarah - [facility] COMPREHEN METABOLIC PANEL COMPREHEN METABOLIC PANEL 02/18/2019 1 2:00:00 AM EST Harnett Sarah - [facility] ROUTINE VENIPUNCTURE ROUTINE VENIPUNCTURE 02/18/2019 12:00:00 AM ES T Harnett Sarah - [facility] EMERGENCY DEPT VISIT EMERGENCY DEPT VISIT 02/18/2019 12:00:00 AM ES T Harnett Sarah - [facility] TRANSVAGINAL US NON-OB TRANSVAGINAL US NON-OB 02/18/2019 12:00:00 A M EST Harnett Sarah - [facility] BLOOD COUNT COMPLETE AUTO&AUTO DIFRNTL WBC COUNT COMPLETE CB C W/AUTO DIFF WBC 02/18/2019 12:00:00 AM EST [facility]arnett Sarah - [facility] CT ABD & PELV W/CONTRAST CT ABD & PELV W/CONTRAST 02/18/2019 12:00: 00 AM EST Harnett Sarah - [facility] KETOROLAC TROMETHAMINE INJ KETOROLAC TROMETHAMINE INJ 2018 12:00:00 AM EST Harnett Sarah - [facility] ROUTINE VENIPUNCTURE ROUTINE VENIPUNCTURE 02/18/2019 12:00:00 AM ES T Harnett Sarah - [facility] ASSAY OF AMYLASE ASSAY OF AMYLASE 02/18/2019 12:00:00 AM EST Harnett Sarah - [facility] COMPREHEN METABOLIC PANEL COMPREHEN METABOLIC PANEL 02/18/2019 1 2:00:00 AM EST Harnett Sarah - [facility] CHORIONIC GONADOTROPIN ASSAY CHORIONIC GONADOTROPIN ASSAY 12:00:00 AM EST Harnett Sarah - [facility] THROMBOPLASTIN TIME PARTIAL THROMBOPLASTIN TIME PARTIAL 01/30 12:00:00 AM EST Harnett Sarah - [facility] TRANSVAGINAL US NON-OB TRANSVAGINAL US NON-OB 02/18/2019 12:00:00 A M EST Harnett Sarah - [facility], [facility] EMERGENCY DEPT VISIT EMERGENCY DEPT VISIT 02/18/2019 12:00:00 AM ES T Harnett Sarah - [facility], [facility] KETOROLAC TROMETHAMINE INJ KETOROLAC TROMETHAMINE INJ 2018 12:00:00 AM EST Harnett Sarah - [facility] ROUTINE VENIPUNCTURE ROUTINE VENIPUNCTURE 02/18/2019 12:00:00 AM ES T Harnett Sarah - [facility], [facility] THER/PROPH/DIAG INJ IV PUSH THER/PROPH/DIAG INJ IV PUSH 01/30 12:00:00 AM EST Harnett Sarah - [facility], [facility] C-REACTIVE PROTEIN C-REACTIVE PROTEIN 02/18/2019 12:00:00 AM EST Harnett Sarah - [facility] BLOOD COUNT COMPLETE AUTO&AUTO DIFRNTL WBC COUNT COMPLETE CB C W/AUTO DIFF WBC 02/18/2019 12:00:00 AM EST [facility]arnett Sarah - [facility] ROUTINE VENIPUNCTURE ROUTINE VENIPUNCTURE 02/18/2019 12:00:00 AM ES T Harnett Sarah - [facility] CT ABD & PELV W/CONTRAST CT ABD & PELV W/CONTRAST 02/18/2019 12:00: 00 AM EST Harnett Sarah - [facility] ASSAY OF AMYLASE ASSAY OF AMYLASE 02/18/2019 12:00:00 AM EST Harnett Sarah - [facility] ASSAY OF LIPASE ASSAY OF LIPASE 02/18/2019 12:00:00 AM EST Harnett Sarah - [facility] C-REACTIVE PROTEIN C-REACTIVE PROTEIN 02/18/2019 12:00:00 AM EST Harnett Sarah - [facility] ROUTINE VENIPUNCTURE ROUTINE VENIPUNCTURE 02/18/2019 12:00:00 AM ES T Harnett Sarah - [facility] THROMBOPLASTIN TIME PARTIAL THROMBOPLASTIN TIME PARTIAL 01/30 12:00:00 AM EST Harnett Sarah - [facility] BLOOD COUNT COMPLETE AUTO&AUTO DIFRNTL WBC COUNT COMPLETE CB C W/AUTO DIFF WBC 02/18/2019 12:00:00 AM EST [facility]arnett Sarah - [facility] EMERGENCY DEPT VISIT EMERGENCY DEPT VISIT 02/18/2019 12:00:00 AM ES T Harnett Sarah - [facility], [facility] ROUTINE VENIPUNCTURE ROUTINE VENIPUNCTURE 02/18/2019 12:00:00 AM ES T Harnett Sarah - [facility], [facility] ASSAY OF LIPASE ASSAY OF LIPASE 02/18/2019 12:00:00 AM EST Harnett Sarah - [facility] THER/PROPH/DIAG INJ IV PUSH THER/PROPH/DIAG INJ IV PUSH 01/30 12:00:00 AM EST Harnett Sarah - [facility] ASSAY OF AMYLASE ASSAY OF AMYLASE 02/18/2019 12:00:00 AM EST Harnett Sarah - [facility] CHORIONIC GONADOTROPIN ASSAY CHORIONIC GONADOTROPIN ASSAY 12:00:00 AM EST Harnett Sarah - [facility] COMPREHEN METABOLIC PANEL COMPREHEN METABOLIC PANEL 02/18/2019 1 2:00:00 AM EST Harnett Sarah - [facility] CT ABD & PELV W/CONTRAST CT ABD & PELV W/CONTRAST 02/18/2019 12:00: 00 AM EST Harnett Sarah - [facility] TRANSVAGINAL US NON-OB TRANSVAGINAL US NON-OB 02/18/2019 12:00:00 A M EST Harnett Sarah - [facility] KETOROLAC TROMETHAMINE INJ KETOROLAC TROMETHAMINE INJ 2018 12:00:00 AM EST Harnett Sarah - [facility], [facility] Results ID Date Data Source [id number] 12/20/2019 04:52:57 PM EDT [facility] Name Value Range Interpretation Code Description Data Arianne rce(s) Supporting Document(s) Progress Note [facility] [id number] [facility] [file] [id number] [file] [id number] ID Date Data Source [id number] 11/07/2019 11:33:00 PM EDT [facility] 1 OrderSheet [facility] Emergency Department [address] [place] [address] Phone #: rvp- [phone] 11/07/2019 23:28 Patient: BERKLEY LOPEZ Sex: F : 2000 Age: 19yWEIGHT:106.5 kg (S)ALLERGIES: PenicillinsCHIEF COMPLAINT: vag bleedingDIAGNOSIS: DysmenorrheaLAB ORDERSOrder Description Priority Entered Acknowledged InitialedCBC w Diff STAT 23:55 11/07/2019 23:56 Ronda Napier RN, M.D.;CMP STAT 23:55 11/07/2019 23:56 Ronda Napier RN, M.D.;Lipase STAT 2 3:55 11/07/2019 23:56 Ronda Napier RN, M.D.;Urinalysis (Clean STAT 23:55 11/07/2019Catch) Ronda Garcia M.D.;Beta-HCG, Qual STAT 23:55 11/07/2019 23:56 WilliamenSerum Ronda Garcia RN, M.D.;Lactic Acid STAT 23:55 11/07/2019 23:56 Ronda Napier RN, M.D.;DIAGNOSTIC STUDY ORDERSOrder Description Priority Entered Acknowledged InitialedMEDICATION/IV/DRIP/FLUID ORDERSOrder Description Priority Entered Acknowledged InitialedNS IV 1000 mL 23:55 11/07/2019 00:06 11/08/2019Bolus: : Bolus 1000 Ronda Garcia RNmL (X1) MBetsyDBetsy;Phenergan IV 25mg 23:55 11/07/2019 00:07 11/08/2019in 50mL NS, give Ronda Garcia RNwide open: 25 mg M.D.;(NOW x1, HIGH 2 OrderSheet [facility] Emergency Department [address] [place] [address] Phone #: ext- [phone] 11/07/2019 23:28 Patient: BERKLEY LOPEZ Sex: F : 2000 Age: 19yALERTMEDICATION)Toradol 15 mg IVP 23:55 11/07/2019 00:09 11/08/2019X1 dose: 15 mg Ronda Garcia RN(NOW x1) M.DBetsy;GENERAL ORDERSOrder Description Priority Entered Acknowledged InitialedNPO 23:55 11/07/2019 23:56 Ronda Napier RN, M.D.;Saline Lock 23:55 11/07/2019 23:56 Ronda Napier RN, M.D.;[Electronically signed by Ronda Garcia M.D. (01:27 11/08/2019)][Electronically signed by Jennifer Oleary R.N. (05:05 11/08/2019)][Electronically locked by Jennifer Oleary R.N. (05:05 11/08/2019)] Name Value Range Interpretation Code Description Data Arianne rce(s) Supporting Document(s) ID Date Data Source [id number] 11/07/2019 11:33:00 PM EDT [facility] 1 Medication Reconciliation Report [facility] Emergency Department [address] [place] [address] Phone #: ext- [phone] 11/07/2019 23:28 Patient: BERKLEY LOPEZ Sex: F : 2000 Age: 19yWeight: 106.5 kgHeight/Length: 66 in.BMI: 37.9ALLERGIES: PenicillinsThe patient's Home Medications are listed below:CONTINUE TAKING THE FOLLOWING MEDICATIONS: Keppra Oral 500 mg, 2x a day Methocarbamol Oral, for bulging disks in her back, took it last this morning, prnThe source(s) of the original Home Medication information:Not obtained.The following Medications were given to the patient in the Emergency Department:NS [IV] IV Fluids bolus 1000 mL, then 1000 mL/hr, administered: 11/08/2019 12:06:00 AMPhenergan [IVPB] IVPB bolus 0, then 25 mg 600 mg/hr, administered: 11/08/2019 12:07:00 AMToradol [IVP] IVP 15 mg, administered: 11/08/2019 12:09:00 AMThe follow ing Medications were prescribed to the patient:Anaprox DS 550 mg tablet Take 1 tablet twice a day as needed for pain for 7 days -- Dispense 14 tablet.Refills: 2. Substitution permitted.[id number] [address], [place] [id number]. . -- Ronda Garcia M.D. Name Value Range Interpretation Code Description Data Arianne rce(s) Supporting Document(s) ID Date Data Source [id number] 11/07/2019 11:33:00 PM EDT [facility] 1 Medication Administration Record [facility] Emergency Department [address] [place] [address] Phone #: ext- [phone] 11/07/2019 23:28 Patient: BERKLEY LOPEZ Sex: F : 2000 Age: 19yWeight: 106.5 kgHeight/Length: 66 inBMI: 37.9ALLERGIES: Penicillins Date/Time Medication Administered Medication OrderedStart NS [IV] NS IV 1000 mL Bolus: : Bolus [id number] 11/08/2019 Dose: IV Fluids mL (X1)Tanner Hopson RN Rate: 1000 mL/hr---- Bolus: 1000 mLStop Dispensed: 1000 mL bag01:06 11/08/2019 Site: #2 right upper armTina Lam Hopson R.N.Start PHENERGAN [IVPB] Phenergan IV 25mg in 50mL NS,00:07 11/08/2019 Dose: 25 mg IVPB give wide open: 25 mg (NOW x1,Tnaner Hopson RN Rate: 600 mg/hr HIGH ALERT MEDICATION)---- Dispensed: 50 mL bagStop Site: #2 right upper arm00:11/08/2019Tanner Hopson RNGiven TORADOL [IVP] (KETOROLAC Toradol 15 mg IVP X1 dose: 15 mg00:11/08/2019 TROMETHAMINE) (NOW x1)Tanner [place], RN Dose: 15 mg IVP Site: #2 right upper arm Name Value Range Interpretation Code Description Data Arianne rce(s) Supporting Document(s) ID Date Data Source [id number] 11/07/2019 11:33:00 PM EDT [facility] 1 General Instructions [facility] Emergency Department [address] [place], [place] [address] Phone #: ext- [phone] 11/07/2019 23:28 Patient: BERKLEY LOPEZ Sex: F : 2000 Age: 19yPrimary dysmenorrheaINSTRUCTIONSDrink plenty of fluids. Do not smoke. No alcohol.Warnings: Further evaluation is necessary (LOAN REVIEW OFFICER). It is very important to follow up with a healthcareprovider.GENERAL WARNINGS: Return or contact your physician immediately if your condition worsens orchanges unexpectedly, if not improving as expected, or if other problems arise. Specifically return if pain,vomiting, bleeding, breathing difficulty or fever greater than 102 degrees F and not controlled byacetaminophen or ibuprofen worsens.Your Current Medications: Your current home medications have been reviewed.CONTINUE TAKING THE FOLLOWING MEDICATIONS:Keppra Oral : 500 mg 2x a day.Methocarbamol Oral : prn, for bulging disks in her back, took it last this morning.Prescription Medications:Anaprox DS 550 mg tablet Take 1 tablet twice a day as needed for pain for 7 days -- Dispense 14 tablet.Refills: 2. Substitution permitted.Pharmacy - [facility] #[id number] - [address], [place] [id number]. .Follow-up:Return to the emergency department as needed. Follow up with your healthcare provider in three even ifwell. Call for an appointment. Reason for referral: evaluation and treatment. Summary of care provided topatient via paper. Follow up with a forestry technician in three days even if well. Call for an appointment.Reason for referral: evaluation and treatment. Summary of care provided to patient via paper.Understanding of the discharge instructions verbalized by patient. Expected course of illness, dischargeinstructions, activity level, diet, prescriptions x1, follow-up appointment and risks and benefits of treatmentre viewed with patient and understanding verbalized. Agrees to plan of care.Follow- up with: [facility], , , [address], [place], [facility] Follow up in three days even if well. Call for an appointment. Reason for referral: evaluation andtreatment. Summary of care provided to patient via paper. 2 General Instructions [facility] Emergency Department [address] [place] [address] Phone #: ext- [phone] 11/07/2019 23:28 Patient: BERKLEY LOPEZ Sex: F : 2000 Age: 19y ADDITIONAL INFORMATIONPainful Menstrual Periods (Dysmenorrhea)Dysmenorrhea is the term used to describe painful menstrual pe riods.The uterus is a muscle. Normally, chemicals called prostaglandins cause the uterus to contract duringyour period. The contractions push out the build-up of tissue that occurs each month inside theuterus. If the contraction is very strong, it can cause pain. The pain may feel like cramping in thelower abdomen, lower back, or thighs. In severe cases, you may have other symptoms as well. Thesecan include nausea, vomiting, loose stools, sweating, or dizziness.There are 2 types of dysmenorrhea:Primary dysmenorrhea refers to common menstrual cramps. It may begin 1 or 2 years after you firstget your period. It may get better or go away as you get older or when you have a baby. The crampsare most often felt just before, or on the first day of your period. They may last 1 to 3 days. Treatmentis with medicines and comfort measures as described below (see the "Home care" section).Secondary dysmenorrhea may start later in life. It describes menstrual pain that occurs due to anunderlying health problem. The pain may last longer than common menstrual cramps. It may alsoworsen over time. Some problems that can lead to secondary dysmenorrhea include: Pelvic inflammatory disease (PID). Infection that involves the female reproductive organs, such as the uterus and fallopian tubes Fibroids. Benign growths within the wall of the uterus (not cancer) 3 General Instructions [facility] Emergency Department [address] [place] [address] Phone #: ext- [phone] 11/07/2019 23:28 Patient: BERKLEY LOPEZ Sex: F : 2000 Age: 19y Endometriosis. Tissue that normally only lines the uterus also grows outside of it (because the abnormal tissue also swells and bleeds each month, it can cause pain)Once the cause of secondary dysmenorrhea is found, it can be treated. Your healthcare provider willdiscuss options with you as needed. Your care may also include some of the treatments describedbelow (see the "Home care" section).Home careMedicinesCertain medicines can help relieve or prevent menstrual pain and cramping. These can include: Nonsteroidal anti- inflammatory drugs (NSAIDs), such as ibuprofen Prescription pain medicine, if needed Hormone therapy (this includes most methods of hormonal control such as pills, shots, or a hormone-releasing IUD)General careTo help relieve pain and cramping, try these tips: Rest as needed. Apply a heating pad to the lower belly or back as directed. A warm bath or massage to these areas may also help. Exercise regularly. Many women find that being more active each week helps reduce pain and cramping. Ask your healthcare provider for advice about other treatments you can try to help control pain and cramping.Follow-up careFollow up with your healthcare provider, or as advised.When to seek medical adviceCall your healthcare provider right away if any of these occur: Fever of 100.4F (38C) or higher, or as directed by your provider Pain or cramping worsens or doesn't improve with medicine Pain or cramping lasts longer than usual or occurs between periods 4 General Instructions [facility] Emergency Department [address] [place] [address] Phone #: ext- [phone] 11/07/2019 23:28 Patient: BERKLEY LOPEZ Sex: F : 2000 Age: 19y Unusual vaginal discharge between periods Bleeding becomes heavy (soaking more than 1 pad or tampon every hour for 3 hours) Passage of pink or rodriguez tissue from the vagina [id number] [employer]. [address] [place] [address]. All rights reserved. This information is not intended as asubstitute for professional medical care. Always follow your healthcare professional's instructions. You have been given the following additional information: Painful Menstrual Periods (Dysmenorrhea)(Electronically signed by Ronda Garcia M.D. 11/08/2019 01:27) Name Value Range Interpretation Code Description Data Arianne rce(s) Supporting Document(s) ID Date Data Source [id number] 11/07/2019 11:33:00 PM EDT [facility] 1 Clinical Report - Nurses [facility] Emergency Department [address] [place] [address] Phone #: ext- [phone] 11/07/2019 23:28 Patient: BREKLEY LOPEZ Sex: F : 2000 Age: 19yTRIAGEArrived by private vehicle. Historian: patient.Triage time: 23:30 11/07/2019.Chief Complaint: PELVIC PAIN and VAGINAL BLEED.Onset. (3 days ago). ( Seen at [facility] for same, spotting this morning. This afternoon she noticed it gettingworse. Was dizzy when watching TV tonight. States that she went through 4 pads today, and has a"couple" golf ball sized clots before. Has PCOS, so her periods are irregular. 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 ( Has had 3 episodes of vomiting today.). No fever. Last oralintake by patient was dinner 2 hours ago (Meatloaf and mashed potatoes). --23:34 11/07/19 Jennifer Soler R.N.Acuity: LEVEL 3.SEPSIS SCREEN: SIRS Screen positive: heart rate greater than 90 and respiratory rate greater than 20.Sepsis Screen positive. Suspected / confirmed signs of infection present. Provider notified an dreassurance given to pt and parent. --23:40 11/07/19 Jennifer Hopson R.N.23:33 11/07/19. BP: 147/102. MAP: 117. HR: 96. RR: 24. O2 saturation: 100%. Temp: 98.3 F. Pain levelnow: 10/08. --23:40 11/07/19 Jennifer Hopson R.N.Weight: 106.5 kg stated. Height/Length: 66 inches Per Patient. BMI: 37.9. --23:30 11/07/19 Jennifer Soler R.N.MedicationsKeppra Oral 500 mg, 2x a day. --23:35 11/07/19 Jennifer Hopson R.N. Methocarbamol Oral, as needed (for bulging disks in her back, took it last this morning). --23:36 11/07/19Jennifer Hopson R.N.AllergiesPenicillins. (throat swelling) --23:35 11/07/19 Jennifer Hopson R.N.PROBLEMS:Bulging disks 2 in her back.Seizure Disorder.PCOS. --23:37 11/07/19 Jennifer Lam Emiliana, R.N.ADDITIONAL SURGERIES:.Knee Surgery. 2 Clinical Report - Nurses [facility] Emergency Department [address] [place] [address] Phone #: ext- [phone] 11/07/2019 23:28 Patient: BERKLEY LOPEZ Sex: F : 2000 Age: 19y Laparoscopy. --23:37 11/07/19 Jennifer Hopson R.N. History SOCIAL HX: Heavy tobacco smoker (cigarette)- less than 1 pack per day. No alcohol use or drug use. She was offered HIV testing but declined and hepatitis C testing but declined. She has not traveled outside the [place] Infectious disease exposure: No infectious disease exposure. (No known Covid exposure). SELF HARM ASSESSMENT: Self harm assessment was performed. The patient answered "no" to the question(s) "Have you recently felt down, depressed, or hopeless?", "Do you have thoughts of harming or killing yourself?", "Have you recently had thoughts about harming or killing others?" and "Do you have any dangerous items in your possession?". ABUSE ASSESSMENT: No report of abuse. FALL RISK ASSESSMENT: Fall risk assessment completed. Risk factors identified include severe pain. Fall interventions initiated. Bed in low position. Brakes on. Family at bedside. Call light in reach of patient. --23:41 11/07/19 Jennifer Hopson R.N.PHYSICAL ASSESSMENTTo room via wheelchair.GENERAL / NEURO / PSYCH: Alert. Oriented X 4. Appears anxious.HEENT: Mucous membranes are pink.RESPIRATORY: ( pt hyperventilating.).CVS: Capillary refill less than 2 seconds.GI / : Emesis noted. Abdomen soft. No frequency of urination or urgency of urination. ( Reports thather last BM was tonight around 8 and it was normal.).SKIN: Skin is warm and dry. --23:44 11/07/19 Jennifer Hopson R.N.NURSING PROGRESS NOTES23:37 11/07/2019 Site #1 started via IV in the right antecubital space with an 20g angiocath; one attempt.Blood drawn: rainbow set. Saline lock flushed with 10 mL saline. --23:42 11/07/19 Jennifer Hopson R.N.Correction. --01:14 11/08/19 Jennifer Hopson R.N. Head of bed elevated. Reassurance given. Call light placed in reach. Side rails up x 2. Bed placed in lowest position. Brakes of bed on. --23:42 11/07/19 Jennifer Hopson R.N. Patient gowned. --23:42 11/07/19 Jennifer Hopson R.N. 23:56 11/07/2019 Site #2 started via IV in the right upper arm with an 20g angiocath, with aseptic technique and good blood return; two attempts. Blood drawn: rainbow set. Saline lock flushed with 10 mL saline. --00:06 11/08/19 Tanner Hopson RN 00:06 11/08/2019 Started bag #1 1000 mL IV Fluids NS; bolus of 1000 mL then at 1000 mL/hr via site #2 3 Clinical Report - Nurses [facility] Emergency Department [address] [place] [address] Phone #: [phone]- [phone] 11/07/2019 23:28 Patient: BERKLEY LOPEZ Sex: F : 2000 Age: 19y via IV pump. Allergies verified and confirmed 5 rights. IV patency established. IV site checked: no pain, redness, or swelling. IV flushed thoroughly pre- and post-medication administration. Information reviewed with patient including reason for taking this medication, signs of allergic reaction and precautions. Verbalizes understanding. --00:06 11/08/19 Tanner Hopson RN 00:07 11/08/2019 Started 25 mg of Phenergan IVPB in bag #1 50 mL; at 600 mg/hr via site #2. via IV pump. Allergies verified and confirmed 5 rights. IV patency established. IV site checked: no pain, redness, or swelling. IV flushed thoroughly pre- and post-medication administration. Information reviewed with patient including reason for taking this medication, signs of allergic reaction and precautions. Verbalizes understanding. --00:11/08/19 Tanner Hopson RN 00:11/08/2019 Toradol (Ketorolac Tromethamine) IVP 15 mg given over 30 second(s) via site #2. Allergies verified and confirmed 5 rights. IV patency established. IV site checked: no pain, redness, or swelling. IV flushed thoroughly pre- and post-medication administration. IVP given by RN. Information reviewed with patient including reason for taking this medication, signs of allergic reaction and precautions. Verbalizes understanding. --00:11/08/19 Tanner Hopson RN 00:11/08/2019 Phenergan IVPB via IV site #2 Discontinued: completed. Total amount infused: 50 mL. IV patency established. IV site checked: no pain, redness, or swelling. IV flushed thoroughly. --00:11/08/19 Tanner Hopson RN 01:11/08/2019 IV Fluids NS via IV site #2 Discontinued: bag #1 completed. Total amount infused: 1000 mL. --01:16 11/08/19 Jennifer Hopson R.N. 01:08 11/08/19. PELVIC EXAM: Pelvic exam performed by ED physician. Assisted by one nurse. Preparation: patient placed in lithotomy position. Procedure: speculum exam. No vaginal discharge noted. No vaginal bleeding noted. Status post-procedure: she was stable. Patient tolerated the procedure. Total time of assist / procedure: 15 minutes. --01:13 11/08/19 Jennifer Hopson R.N.DISPOSITION / DISCHARGE 01:11/08/2019 Site #2 removed upon discharge. Bandage applied. --01:14 11/08/19 Jennifer Hopson R.N. Condition at departure: improved and stable. No learning barriers present. Follow up contact number WWW. Patient verbalized understanding. Written instructions provided in Martiniquais. The patient was discharged by the physician. She was discharged home. She left ambulatory and via private vehicle. Parent driving. --01:16 11/08/19 Jennifer Hopson R.N. 01:13 11/08/19. BP: 122/81. MAP: 94. HR: 88. RR: 16. O2 saturation: 99%. Temp: 98 F. Pain level now: 05/08. --01:16 11/08/19 Jennifer Hopson R.N. Departure time: 01:19 11/08/2019. --01:11/08/19 Jennifer Hopson R.N. 4 Clinical Report - Nurses [facility] Emergency Department [address] [place] [address] Phone #: aan- [phone] 11/07/2019 23:28 Patient: BERKLEY LOPEZ Sex: F : 2000 Age: 19yLocked/Released at 11/08/2019 05:05 by Jennifer Hopson R.N. Name Value Range Interpretation Code Description Data Arianne rce(s) Supporting Document(s) ID Date Data Source [id number] 11/07/2019 11:33:00 PM EDT [facility] 1 Clinical Report - Physicians/Mid Levels [facility] Emergency Department [address] [place] [address] Phone #: ext- [phone] 11/07/2019 23:28 Patient: BERKLEY LOPEZ Sex: F : 2000 Age: 19y Time Seen: 23:40 11/07/2019; initial patient contact. Arrived- By private vehicle. Historian- patient. Disposition decision: 01:11 11/08/2019.HISTORY OF PRESENT ILLNESS Chief Complaint: VAGINAL BLEEDING. This started just prior to arrival and still present. The symptoms are described as severe. Modifying factors. Not worsened by anything. Not relieved by anything. The patient has had intermittent, crampy suprapubic pelvic pain. She has had abnormal bleeding described as heavier than normal period and passing clots. The bleeding has required use of about 4 pads per day. No vaginal pain, low back pain, flank pain, missed period(s) or irregular periods. No vaginal discharge, vaginal itching, genital lesions, pain with urination or urinary frequency. No urgency of urination or hematuria. 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 Similar symptoms previously. Patient has had similar symptoms occasionally. Recent medical care: The patient was seen recently at another facility in the emergency department. ( seen at [facility] 2 days ago for passing blood clot, not , pt has PCOS).REVIEW OF SYSTEMSThe patient has had nausea. She has had mild vomiting. No diarrhea, black stools, headache, fever orchills. No anorexia, eye discomfort, sore throat, cough or difficulty breathing. No chest pain, skin rash,enlarged lymph nodes or joint pain. All other systems reviewed and are negative.PAST HISTORYSee nurses notes. 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 Seizure Disorder. PCOS. Additional Surgeries: . Knee Surgery. Laparoscopy. Medications: 2 Clinical Report - Physicians/Mid Levels [facility] Emergency Department [address] [place] [address] Phone #: ext- [phone] 11/07/2019 23:28 Patient: BERKLEY LOPEZ Sex: F : 2000 Age: 19y Methocarbamol Oral, as needed (for bulging disks in her back, took it last this morning). Keppra Oral 500 mg, 2x a day. Allergies: Penicillins. (throat swelling).SOCIAL HISTORYHeavy tobacco smoker- less than 1 pack per day. No alcohol use or drug use.ADDITIONAL NOTESThe nursing notes have been reviewed with agreement regarding the chief complaint, HPI, ROS, PMH andpatient medications and allergies.PHYSICAL EXAMVital Signs: 11/07/2019 23:33 BP: 147/102. MAP: 117. HR: 96. RR: 24. O2 saturation: 100%. Temp: 98.3F. Pain level now: 10/08. Have been reviewed. Oxygen saturation normal.Appearance: Alert. Oriented X3. Anxious. Appears to be in pain. Patient in mild distress. Distressappears due to pain.HEENT: Normal external inspection.ENT: Pharynx normal.Neck: Neck supple.CVS: Heart sounds normal.Respiratory: No respiratory distress. Painless inspiration. Breath sounds normal. Chest nontender.Abdomen: Soft. Moderate tenderness in the right lower quadrant, suprapubic area, left lower quadrantand lower abdomen with guarding present. No rebound tenderness. Bowel sounds normal. Noorganomegaly. No mass.Back: Normal external inspection. No CVA tenderness.: Speculum exam performed. External inspection normal. Speculum exam normal. No vaginaldischarge or bleeding. (pt has nml speculum exam, no blood at all, cervix closed).Skin: Skin warm and dry. Normal skin color. No rash. Normal skin turgor.Extremities: Extremities nontender. No lower extremity edema.Neuro: Oriented X 3. Mood/affect normal. No motor deficit. No sensory deficit.LABS, X-RAYS, AND EKGLaboratory Tests: Laboratory tests have been ordered, with results reviewed and considered in themedical decision making process. CBC w Diff: (DEBBI: 11/07/2019 23:37) ( MsgRcvd 11/08/2019 00:19) Final results Test Result Flag Units (Reference) CBC W/AUTOMATED DIFF COMPLETE BLOOD COUNT WBC 12.9 H 10/uL (4.2 - 11.0) RBC 4.69 10/uL (4.20 - 5.40) HEMOGLOBIN 13.2 g/dL (12.0 - 16.0) HEMATOCRIT 39.7 % (37.0 - 47.0) MCV 84.6 fL (81.0 - 101) MCH 28.1 pg (27.0 - 34.0) MCHC 33.2 g/dL (31.0 - 36.0) 3 Clinical Report - Physicians/Mid Levels [facility] Emergency Department [address] [place] [address] Phone #: ext- [phone] 11/07/2019 23:28 Patient: BERKLEY LOPEZ Sex: F : 2000 Age: 19y RDW 12.9 % (11.5 - 14.5) PLATELETS 289 10/uL (150 - 450) MPV 11.2 H fL (7.4 - 10.4) NEUT 53.0 % (37.0 - 80.0) LYMPH 34.8 % (25.0 - 40.0) MONO 8.1 H % (3.0 - 8.0) EOS 2.9 % (0.0 - 7.0) BASO 0.8 % (0.0 - 2.5) %IG 0.4 H % (0.0 - 0.0) %NRBC 0.0 % (0.0 - 0.0) #NEUT 6.85 10/uL (2.00 - 6.90) #LYMPH 4.49 H 10/uL (0.60 - 3.40) #MONO 1.04 H 10/uL (0.00 - 0.90) #EOS 0.38 10/uL (0.00 - 0.70) #BASO 0.10 10/uL (0.00 - 0.20) #IG 0.05 10/uL (0.00 - 0.10) #NRBC 0.00 10/uL (0.00 - 0.00) MANUAL DIFF SEE BELOW SEGS 51 % (37 - 80) %LYMPH 42 H % (25 - 40) %MONO 2 L % (3 - 8) %EOS 5 % (0 - 7) RBC MORPH NOT INDICATEDCMP: (DEBBI: 11/07/2019 23:37) ( MsgRcvd 11/08/2019 00:17) Final results Test Result Flag Units (Reference) COMPREHENSIVE METABOLIC PANEL COMPREHENSIVE METABOLIC PANEL SODIUM 141 mEq/L (134 - 153) POTASSIUM 4.0 mEq/L (3.6 - 5.0) CHLORIDE 105 mEq/L (98 - 107) CO2 24 MEQ/L (22 - 30) GLUCOSE 87 MG/DL (65 - 110) BUN 8 MG/DL (7 - 21) CREATININE 0.7 MG/DL (0.7 - 1.5) BUN/CREAT 11 (8 - 27) TOTAL PROTEIN 6.9 G/DL (6.3 - 8.2) ALBUMIN 4.7 G/DL (3.9 - 5.0) GLOBULIN 2.2 L GM/DL (2.4 - 3.2) A/G RATIO 2.1 H (0.8 - 2.0) CALCIUM 9.7 MG/DL (8.4 - 10.2) TOTAL BILI <0.7 MG/DL (0.2 - 1.3) ALKALINE PHOS 102 U/L (38 - 126) SGOT/AST 19 U/L (5 - 40) SGPT/ALT 22 U/L (7 - 56) ANION GAP 12.0 mmol/L (8.0 - 16.0) AGE 19 yrs NON-AA GFR >60 mL/min AFR AMER GFR > 60 mL/min Male GFR Interprentation 20-49 yrs >60 mL/min [id number] yrs >56 mL/min Normal 60-69 yrs >49 mL/min Normal 70-79yrs>42 mL/min Normal 80 and above >35 mL/min Normal Female GFRInterpretation 20-39 yrs >60 mL/min Normal 40-49 yrs >58 mL/minNormal 50-59 yrs >51 mL/min Normal 60-69 yrs >45 mL/min Nyvjqq56-79 yrs >39 mL/min Normal 80 and above >32 mL/min NormalLipase: (DEBBI: 11/07/2019 23:37) ( [facility] 11/08/2019 00:17) Final results Test Result Flag Units (Reference) 4 Clinical Report - Physicians/Mid Levels [facility] Emergency Department [address] [place] [address] Phone #: ext- [phone] 11/07/2019 23:28 Patient: BERKLEY LOPEZ Sex: F : 2000 Age: 19y LIPASE 30 U/L (13 - 60) Beta-HCG, Qual Serum: (DEBBI: 11/07/2019 23:37) ( [facility] 11/08/2019 00:22) Final results Test Result Flag Units (Reference) HCG SERUM QUAL NEGATIVE (NORMAL: NEGAT HCG SERUM QL REENTER NEGATIVE (NORMAL: NEGAT { KIT LOT # [id number] ){ KIT EXP DATE 12/11/20 ){ PROCEDURAL CONTROL VALID ) Lactic Acid: (DEBBI: 11/07/2019 23:37) ( [facility] 11/08/2019 00:03) Final results Test Result Flag Units (Reference) LACTIC ACID 2.0 MMOL/L (0.2 - 2.2).PROGRESS AND PROCEDURESCourse of Care: 01:09 11/08/19. pt has nml speculum exam, no bleeding whatsoever; workup all in andnml, not ; probable dysmenorrhea; will refer her to LOAN REVIEW OFFICER; d/c instructions given. Patient counseled in person regarding the patient's stable condition, test results, diagnosis and need for follow-up. Patient agrees with plan of care. Disposition: Condition: good and stable. Discharge decision based on the following: patient's condition is stable; patient's condition is improved; patient is ambulatory; patient is active; patient drinking fluids; patient eating; patient's pain is controlled; patient's exam is improved; no abnormal test results; improving condition on repeat evaluation; social support is good; transportation is available; follow-up is available; clinical impression is consistent with outpatient treatment.CLINICAL IMPRESSION Primary dysmenorrheaINSTRUCTIONS Drink plenty of fluids. Do not smoke. No alcohol. Warnings: Further evaluation is necessary (LOAN REVIEW OFFICER). It is very important to follow up with a healthcare provider. GENERAL WARNINGS: Return or contact your physician immediately if your condition worsens or changes unexpectedly, if not improving as expected, or if other problems arise. Specifically return if pain, vomiting, bleeding, breathing difficulty or fever greater than 102 degrees F and not controlled by acetaminophen or ibuprofen worsens. 5 Clinical Report - Physicians/Mid Levels [facility] Emergency Department [address] [place] [address] Phone #: ext- [phone] 11/07/2019 23:28 Patient: BERKLEY LOPEZ Sex: F : 2000 Age: 19y Your Current Medications: Your current home medications have been reviewed. CONTINUE TAKING THE FOLLOWING MEDICATIONS: Keppra Oral : 500 mg 2x a day. Methocarbamol Oral : prn, for bulging disks in her back, took it last this morning. Prescription Medications: Anaprox DS 550 mg tablet Take 1 tablet twice a day as needed for pain for 7 days -- Dispense 14 tablet. Refills: 2. Substitution permitted. Pharmacy - [id number] - [address], [place] [id number]. . Follow-up: Return to the emergency department as needed. Follow up with your healthcare provider in three even if well. Call for an appointment. Reason for referral: evaluation and treatment. Summary of care provided to patient via pap er. Follow up with a forestry technician in three days even if well. Call for an appointment. Reason for referral: evaluation and treatment. Summary of care provided to patient via paper. Understanding of the discharge instructions verbalized by patient. Expected course of illness, discharge instructions, activity level, diet, prescriptions x1, follow-up appointment and risks and benefits of treatment reviewed with patient and understanding verbalized. Agrees to plan of care. Follow-up with: [facility], , , [address], [place], [address] Follow up in three days even if well. Call for an appointment. Reason for referral: evaluation and treatment. Summary of care provided to patient via paper.(Electronically signed by Ronda Garcia M.D. 11/08/2019 01:27) Name Value Range Interpretation Code Description Data Arianne rce(s) Supporting Document(s) ID Date Data Source [id number] 11/08/2019 12:22:00 AM EDT [facility] Name Value Range Interpretation Code Description Data Arianne rce(s) Supporting Document(s) HCG SERUM QUAL NEGATIVE NORMAL: NEGATIVE [facility] HCG SERUM QL REENTER NEGATIVE NORMAL: NEGATIVE [facility] { KIT LOT # [id number] ){ KIT EXP DATE 12/11/20 ){ PROCEDURAL CONTROL VALID ) ID Date Data Source [id number] 11/08/2019 12:19:00 AM EDT [facility] Name Value Range Interpretation Code Description Data [facility] rce(s) Supporting Document(s) CBC W/AUTOMATED DIFF [facility] COMPLETE BLOOD COUNT Leukocytes [#/volume] in Blood by Automated count 12.9 10^3/uL 4.2 - 11.0 H [facility] Erythrocytes [#/volume] in Blood by Automated count 4.69 10^6/uL 4. 20 - 5.40 [facility] Hemoglobin [Mass/volume] in Blood 13.2 g/dL 12.0 - 16.0 [facility] Hematocrit [Volume Fraction] of Blood by Automated count 39.7 % 3 7.0 - 47.0 [facility] Erythrocyte mean corpuscular volume [Entitic volume] by Auto mated count 84.6 fL 81.0 - 101 [facility] Erythrocyte mean corpuscular hemoglobin [Entitic mass] by Automated count 28.1 pg 27.0 - 34.0 [facility] Erythrocyte mean corpuscular hemoglobin concentration [Mass/volume] by Automated count 33.2 g/dL 31.0 - 36.0 [facility] Erythrocyte distribution width [Ratio] by Automated count 12.9 % 11.5 - 14.5 [facility] Platelets [#/volume] in Blood by Automated count 289 10^3/uL 150 - 45 0 [facility] Platelet mean volume [Entitic volume] in Blood by Automated count 11.2 fL 7.4 - 10.4 H [facility] Neutrophils/100 leukocytes in Blood by Automated count 53.0 % 37. 0 - 80.0 [facility] Lymphocytes/100 leukocytes in Blood by Manual count 34.8 % 25.0 - 40.0 [facility] Monocytes/100 leukocytes in Blood by Automated count 8.1 % 3.0 - 8.0 H [facility] Eosinophils/100 leukocytes in Blood by Automated count 2.9 % 0.0 - 7.0 [facility] Basophils/100 leukocytes in Blood by Automated count 0.8 % 0.0 - 2.5 [facility] %IG 0.4 % 0.0 - 0.0 H [facility] al %NRBC 0.0 % 0.0 - 0.0 [facility] al Neutrophils [#/volume] in Blood by Automated count 6.85 10^3/uL 2.00 - 6.90 [facility] Lymphocytes [#/volume] in Blood by Automated count 4.49 10^3/uL 0.60 - 3.40 H [facility] Monocytes [#/volume] in Blood by Automated count 1.04 10^3/uL 0.00 - 0.90 H [facility] Eosinophils [#/volume] in Blood by Automated count 0.38 10^3/uL 0.00 - 0.70 [facility] Basophils [#/volume] in Blood by Automated count 0.10 10^3/uL 0.00 - 0.20 [facility] #IG 0.05 10^3/uL 0.00 - 0.10 [facility] #NRBC 0.00 10^3/uL 0.00 - 0.00 [facility] MANUAL DIFF SEE BELOW [facility] ital Segmented neutrophils/100 leukocytes in Blood by Manual count 51 % 37 - 80 [facility] %LYMPH 42 % 25 - 40 H [facility] al %MONO 2 % 3 - 8 L [facility] al %EOS 5 % 0 - 7 [facility] al RBC MORPH NOT INDICATED [facility] ID Date Data Source [id number] 11/08/2019 12:16:00 AM EDT [facility] Name Value Range Interpretation Code Description Data Arianne rce(s) Supporting Document(s) Lipase [Enzymatic activity/volume] in Serum or Plasma 30 U/L 13 - 60 [facility] ID Date Data Source [id number] 11/08/2019 12:16:00 AM EDT [facility] Name Value Range Interpretation Code Description Data Arianne rce(s) Supporting Document(s) COMPREHENSIVE METABOLIC PANEL [facility] COMPREHENSIVE METABOLIC PANEL Sodium [Moles/volume] in Serum or Plasma 141 mEq/L 134 - 153 [facility] Potassium [Moles/volume] in Serum or Plasma 4.0 mEq/L 3.6 - 5.0 [facility] Chloride [Moles/volume] in Serum or Plasma 105 mEq/L 98 - 107 [facility] Carbon dioxide, total [Moles/volume] in Serum or Plasma 24 MEQ/L 22 - 30 [facility] Glucose [Mass/volume] in Serum or Plasma 87 MG/DL 65 - 110 [facility] BUN 8 MG/DL 7 - 21 [facility] al Creatinine [Mass/volume] in Serum or Plasma 0.7 MG/DL 0.7 - 1.5 [facility] BUN/CREAT 11 8 - 27 [facility] al Protein [Mass/volume] in Serum or Plasma 6.9 G/DL 6.3 - 8.2 [facility] Albumin [Mass/volume] in Serum or Plasma 4.7 G/DL 3.9 - 5.0 [facility] Globulin [Mass/volume] in Serum by calculation 2.2 GM/DL 2.4 - 3.2 L [facility] A/G RATIO 2.1 0.8 - 2.0 H [facility] Calcium [Mass/volume] in Serum or Plasma 9.7 MG/DL 8.4 - 10.2 [facility] Bilirubin.total [Mass/volume] in Serum or Plasma <0.7 MG/DL 0.2 - 1.3 [facility] Alkaline phosphatase [Enzymatic activity/volume] in Serum or Plasma 102 U/L 38 - 126 [facility] Aspartate aminotransferase [Enzymatic activity/volume] in Serum or Plasma 19 U/L 5 - 40 [facility] Alanine aminotransferase [Enzymatic activity/volume] in Seru m or Plasma 22 U/L 7 - 56 [facility] Anion gap 3 in Serum or Plasma 12.0 mmol/L 8.0 - 16.0 [facility] AGE 19 yrs [facility] NON-AA GFR >60 mL/min [facility] AFR AMER GFR >60 mL/min [facility] Male GFR In terprentation 20-49 yrs >60 mL/min Normal 50-59 yrs >56 mL/min Normal 60-69 yrs >49 mL/min Normal 70-79yrs >42 mL/min Normal 80 and above >35 mL/min Normal Female GFR Interpretation 20-39 yrs >60 mL/min Normal 40-49 yrs >58 mL/min Normal 50-59 yrs >51 mL/min Normal 60-69 yrs >45 mL/min Normal 70-79 yrs >39 mL/min Normal 80 and above >32 mL/min Normal ID Date Data Source [id number] 11/08/2019 12:03:00 AM EDT [facility] Name Value Range Interpretation Code Description Data Arianne rce(s) Supporting Document(s) Lactate [Moles/volume] in Serum or Plasma 2.0 MMOL/L 0.2 - 2.2 [facility] ID Date Data Source [id number] 07/20/2019 06:38:00 PM EDT [facility] [id number], [id number], [id number], [id number], Name Value Range Interpretation Code Description Data Arianne rce(s) Supporting Document(s) IMMAT. GRAN% 0.0-0.5 Normal (applies to non-numeric res ults) [facility] ID Date Data Source LB 07/20/2019 06:38:00 PM EDT [facility] [id number], [id number], [id number], [id number], Name Value Range Interpretation Code Description Data Arianne rce(s) Supporting Document(s) ABSOLUTE IMMATURE GRAN 0.00-0.40 Normal (applies to non-n umeric results) [facility] ID Date Data Source LB 07/20/2019 06:50:00 PM EDT [facility] [id number], [id number], [id number], [id number], Name Value Range Interpretation Code Description Data Arianne rce(s) Supporting Document(s) EGFR - NON- Normal (applies to non-numeric results) [facility] >60 mL/min/1.73 EGFR - Normal (applies to non- numeric results) [facility] >60 mL/min/1.73 Potential Chronic Kidne y Disease: <60ml/min/1.73sq meters Kidney Failure: <15ml/min/1.73sq meters ID Date Data Source 07/20/2019 06:45:00 PM EDT [facility] [id number], [id number], [id number], [id number], Name Value Range Interpretation Code Description Data Arianne rce(s) Supporting Document(s) URINE RBC 0-2 Above high normal [facility] Services URINE WBC 0-2 Abnormal (applies to non-numeric res ults) [facility] Services BACTERIA FEW Abnormal (applies to non-numeric res ults) [facility] BUDDING YEAST [facility] rv[facility] URINE SQUAMOUS EPI [facility] th Services MUCOUS [facility] es HYALINE CASTS [facility] rv[facility] CALCIUM OXALATE CRYSTALS PRESENT Unite d [facility] Services ID Date Data Source [id number] 07/20/2019 06:50:00 PM EDT [facility] [id number], Name Value Range Interpretation Code Description Data Arianne rce(s) Supporting Document(s) LIPASE Normal (applies to non-numeric results) [facility] <300 ID Date Data Source [id number] 07/20/2019 06:50:00 PM EDT [facility] [id number], Name Value Range Interpretation Code Description Data Arianne rce(s) Supporting Document(s) SODIUM 135-146 Normal (applies to non-numeric resul ts) [facility] POTASSIUM 3.5-5.3 Normal (applies to non-numeric resul ts) [facility] CHLORIDE 98-107 Above high normal [facility] CARBON DIOXIDE 21-32 Below low normal [facility] ANION GAP 5-15 Normal (applies to non-numeric resul ts) [facility] GLUCOSE 65-99 Above high normal [facility] Reference Ranges: Normal Fasting Glucose ........65-99 MG/DL Pre-Diabetes ......100-125 MG/DL Provisional Diagnosis of Diabetes .........>125 MG/DL BUN 7-23 Normal (applies to non-numeric results) [facility] CREATININE 0.5-1.0 Normal (applies to non-numeric resul ts) [facility] BUN/CREAT RATIO [facility] CALCIUM 8.4-10.4 Normal (applies to non-numeric resul ts) [facility] TOTAL PROTEIN 6.3-8.2 Normal (applies to non-numeric re sults) [facility] ALBUMIN 3.5-5.0 Normal (applies to non-numeric resul ts) [facility] ALB/GLOB RATIO 1.1-1.8 Normal (applies to non-numeric r esults) [facility] BILIRUBIN, TOTAL 0.0-1.3 Normal (applies to non-numeric results) [facility] ALK PHOSPHATASE 38-126 Normal (applies to non-numeric results) [facility] AST (SGOT) Normal (applies to non-numeric results) [facility] <59 ALT (SGPT) 0-34 Normal (applies to non-numeric resul ts) [facility] Reference Range:Females <35Males <50 ID Date Data Source [id number] 07/20/2019 06:38:00 PM EDT [facility] [id number], Name Value Range Interpretation Code Description Data Arianne rce(s) Supporting Document(s) WBC 4.0-10.5 [facility] RBC 4.00-5.20 [facility] high [facility] HEMOGLOBIN 12.2-15.5 Normal (applies to non-numeric resul ts) [facility] HEMATOCRIT 35.0-47.0 Normal (applies to non-numeric resul ts) [facility] MCV 77.0-100.0 Normal (applies to non-numeric resul ts) [facility] MCH 25.0-33.0 Normal (applies to non-numeric resul ts) [facility] MCHC 31.0-36.0 Normal (applies to non-numeric resul ts) [facility] RDW 12.0-17.0 Normal (applies to non-numeric resul ts) [facility] PLATELET COUNT 125-425 Normal (applies to non-numeric r esults) [facility] MPV 8.0-12.0 Normal (applies to non-numeric results) [facility] ABSOLUTE NEUT 1.4-8.4 Normal (applies to non-numeric re sults) [facility] Services ABSOLUTE LYMPH 1.0-4.0 Normal (applies to non-numeric r esults) [facility] ABSOLUTE MONO 0.0-1.5 Normal (applies to non-numeric re sults) [facility] Services ABSOLUTE EOS 0.0-0.7 Normal (applies to non-numeric res ults) [facility] ABSOLUTE BASO 0.0-0.1 Normal (applies to non-numeric re sults) [facility] Services NEUT% 35.0-75.0 Normal (applies to non-numeric resul ts) [facility] Services LYMPH% 20.0-42.0 Normal (applies to non-numeric resul ts) [facility] Services MONO% 0.0-15.0 Normal (applies to non-numeric resul ts) [facility] Services EOS% 0.0-10.0 Normal (applies to non-numeric resul ts) [facility] Services BASO% 0.0-2.0 Normal (applies to non-numeric resul ts) [facility] ID Date Data Source [place] 07/22/2019 07:40:00 AM EDT [facility] Name Value Range Interpretation Code Description Data Arianne rce(s) Supporting Document(s) CLEAN VOIDED URINE CULT [facility] [id number], Name: BERKLEY LOPEZBetsy Littlejohn: 2000 Sex: [place]# Loc [facility] [id number] VSLAB URNC 07/20/19 CLEAN VOIDED URINE CULT FINAL <10,000 CFU/mL NOA SUGGESTIVE OF UROGENITAL SKIN CONTAMINATIONKEY FOR RESULTS: - NEW RESULTATT.PHYS.: DINORAH DOOLEY LOCATION: [facility]--ADM.DATE: 07/20/19 PATIENT : BERKLEY LOPEZ MICROBIOLOGYPRINTED: 07/22/19 07:40 REGULAR 2 PAGE: 2 of 1 1 ID Date Data Source [id number] 07/20/2019 06:41:00 PM EDT [facility] [id number], Name Value Range Interpretation Code Description Data Arianne rce(s) Supporting Document(s) URINE COLOR YELLOW Normal (applies to non-numeric resu lts) [facility] URINE APPEARANCE CLEAR Normal (applies to non-numeric results) [facility] UR SPECIFIC GRAV 1.005-1.030 Normal (applies to non-numeri c results) [facility] URINE PH 5.0-7.5 Normal (applies to non-numeric resul ts) [facility] URINE LEUKOCYTE LARGE NEGATIVE Abnormal (applies to non-numeri c results) [facility] URINE NITRITE NEGATIVE NEGATIVE Normal (applies to non-numeric re sults) [facility] URINE PROTEIN TRACE MG/DL NEGATIVE Normal (applies to non-numeric r esults) [facility] URINE GLUCOSE NORMAL MG/DL NORMAL Normal (applies to non-numeric results) [facility] URINE KETONES TRACE MG/DL NEGATIVE Normal (applies to non-numeric r esults) [facility] UR UROBILINOGEN NORMAL MG/DL Normal (applies to non-numeri c results) [facility] NORMAL URINE BILIRUBIN NEGATIVE MG/DL NEGATIVE Normal (applies to non- numeric results) [facility] URINE OCCULT BLD NEGATIVE NEGATIVE Normal (applies to non-numeric results) [facility] URINE MICROSCOPIC INDICATED Abnormal (applies to non-nume ramone results) [facility] URINE C-S REQUEST see below [facility] SPECIMEN SENT TO MICROBIOLOGY ID Date Data Source [id number] 06/29/2019 02:10:35 PM EDT Harnett Tonja rdes - [facility], [facility] EXAM:XR KNEE 3 VIEWS LEFT ORDERING PROVI LISSETTE:TAHIRA Dobson PACLINICAL HISTORY:Left knee pain. History of surgery to 04/10/2019TECHNIQUE:3 images of the left knee were obtained.COMPARISON:Radiographs on 05/16/2019 FINDINGS:BONES: There is no displaced fracture or cortical discontinuity. No abnormalossific fragments seen. There are no suspicious lytic or sclerotic lesions.Mineralization is within normal limits. Postoperative changes areredemonstrated and stable.JOINT: Anatomic alignment is maintained. No significant joint space narrowingor osteophytosis. No evidence of effusion.SOFT TISSUES: Radiographically unremarkable. IMPRESSION:1. Stable postoperative changes. Otherwise unremarkable exam. This document has been authenticated by Wilfredo Albright MD on 06/29/2019 2:08PM. Thank you for referring your patient to [facility]. Name Value Range Interpretation Code Description Data Arianne rce(s) Supporting Document(s) ID Date Data Source [id number] 06/18/2019 08:11:00 PM EDT [facility] PROCEDURE: ABDOMEN, 2 VIEW X-RAY ORD#:[id number] DATE: 06/18/2019 19:02 ACC#: [id number]:PROCEDURE: ABDOMEN, 2 VIEW X-RAYDATE AND TIME: 06/18/2019 7:02 PM EDTHISTORY: *Pain. Constipation. Abdominal pain.COMPARISON: NoneTECHNIQUE: 3 frontal views of the abdomen.-IMPRESSION: Nonspecific, nonobstructive bowel gas pattern. No gross free air. Large amount of stool scattered within the colon and likely the rectum. Scattered air within the colon.Lung bases are clear. No abnormal calcifications. No acute osseous abnormality is identified.DWS: [id number] CUMULATIVE S RADIOLOGY FLUOROSCOPY TIME SINCE 07/30/2009: 0 sec (=0.00 min)EXAM DATE: 06/18/2019 19:02 ORDERED BY:JOSE MCKEE PACS IMAGES READ BY: KAYLA SCOTTIGNED 06/18/2019 20:09 BY KAYLA GODINEZ MD [facility] ACC#: [id number] Name Value Range Interpretation Code Description Data Arianne rce(s) Supporting Document(s) ID Date Data Source [id number] 05/26/2019 02:33:53 PM EDT Harnett Tonja florez - [facility], [facility] BERKLEY LOPEZ LPATIENT IDENTIFICATION :Practice Site: [facility] Name: BERKLEY LOPEZ LMedical Record Number: [id number] Of : 2000CHIEF COMPLAINT:patient here for c/o low grade temp with mid back pain x 2 daystemp 100 or less at homeHISTORY OF PRESENT ILLNESS:19-year-old female presents today for complaints of having low-grade feverspast 2 days and midback pain. Patient is unsure if they are related. She states hertemperatures have beenaround 99 and the highest was 100. She has been taking Tylenol and it seemsto relieve her low-grade fever. She denies any nasal congestion, sore throat or ear pain. Nocough or chestcongestion. No headache or dizziness. She has been having some mid back painon the sides. Shestates she believes she likely strained her back. She has been lifting d9-qcpah-cms infant whois about 15 pounds. She has been having her help her do the liftinginstead. She hasnot taken any anti-inflammatories. She is not applied any ice or heat. Shehas full range ofmotion. She denies any saddle paresthesia or loss of bowel or bladder. Shelast took Tylenolearlier this morning. Denies any dysuria, urgency or frequency.REVIEW OF SYSTEMS:as per HPI.PROBLEM LIST/PAST MEDICAL HISTORY:OngoingAcid refluxAcute constipationAcute dehydrationAcute gastritisAcute gastritisAnxietyAnxietyDehydrationDepressionDysmenorrheaGERD (gastroesophageal reflux disease)GERD (gastroesophageal reflux disease)GERD with esophagitisHeadacheHematuriaIBS (irritable bowel syndrome)Left knee painMigrainePanic attackRuptured ovarian cystSeizureSuicide attemptSyncopeThreatened miscarriageUnspecified maternal infectious and parasitic disease complicating ,second trimesterUrinary retentionUrinary retentionUTI (urinary tract infection)HistoricalPROCEDURE/SURGICAL HISTORY:Ts - Tonsillectomy (Ts - Tonsillectomy)excision of cyst near eargastroscopyexcision of cyst from earREMOVAL OF OVARIAN CYST(S) (REMOVAL OF OVARIAN CYST(S))Colonoscopy (Colonoscopy)left knee reconstructionSOCIAL HISTORY:AlcoholAlcohol Use None., 03/02/2017Employment/School/MilitaryLearning Disabilities None. Barriers to Learning None evident. MilitaryService None., 04/05/2019Equipment/De vicesAdaptive Equipment Walker, 2 wheeled., 04/24/2018Home/EnvironmentAges and Sex Of Children in Home 8 month old daughter and 5 year oldstepdaugher. Lives WithChild(madisyn), Significant other, sep-daughter every other weekend. LivingSituation Homeindependently., 04/05/2019Nutrition/HealthRegular, Caffeine Use Frequent. Caffeine intake amount: 1 cup of coffee/ day.Sleeping concerns:No. Feels highly stressed: No., 04/24/2018Substance UseDrug Use None., 03/02/2017Tobacco/NicotineNever (less than 100 in lifetime) Use:. Exposure to Tobacco Smoke No exposureto smoke/nicotine.,04/05/2019Patient Smokin g Status Former smoker., 03/02/2017FAMILY HISTORY:Grandmother: Positive Breast cancer Ovarian CaALLERGIES:Pineapple (bothers throat)penicillins (rash)Home Medications:Home Medications (4) Activenaproxen (naproxen 500 mg oral tablet) 500 mg = 1 tab(s), PRN, PO (oral), bidomeprazole (omeprazole 40 mg oral delayed release capsule) 40 mg = 1 cap(s),PO (oral), qDayondansetron (Zofran ODT 4 mg oral tablet, disintegrating) 4 mg = 1 tab(s),PRN, PO (oral), tidondansetron (Zofran 4 mg oral tablet) 4 mg = 1 tab(s), PRN, SubLINGUAL, [id number] EXAM:VITALS:T: 37 C (Tympanic) T: 98.6 F (Tympanic) HR: 100 BP: 108 /66 SpO2:98%HT: 167.6 cm WT: 109.25 kg BMI: 38.9 General: The patient is a well developed, well nourished female in no acutedistress. Skin warmand dry. Normal turgor.Head: Normocephalic, atraumatic.HEENT: Pupils round, equal and react to light. ENT - WNL.Neck: supple. non-tender, no JVD. Trachea mid-line. No lymphadenopathy.Lungs: Clear bilaterally with no rales, rhonchi, or wheeze.Heart: Regular rhythm at normal rate is present without murmur, rub, or gallop.Abdomen: Flat, soft, and non- tender with positive BS. No CVA tenderness. NoCVA tenderness.Extremities: Mild paraspinal tenderness low thoracic and lumbar area. Fullflexion andextension. Negative straight leg raises. Full RoM in all extremities. Nojoint erythema ortenderness. No clubbing, cyanosis, edema or deformity noted. Distal pulsespresent and equal.Neurological: Alert and Oriented X3. CN II-XII intact. Strength andsensation symmetric andintact throughout. No focal deficits noted. LAB RESULTS:HEMATOLOGYBasophils, absolute: 0.1 K/mcL (04/27/19)Basophils, auto: 1 % (04/27/19)Eosinophils, absolute: 0.2 K/mcL (04/27/19)Eosinophils, auto: 1.9 % (04/27/19)Hct: 39.7 % (04/27/19)Hgb: 13.3 gm/dL (04/27/19)Lymphocytes, absolute: 3 K/mcL (04/27/19)Lymphocytes, auto: 35.8 % (04/27/19)MCH: 27.8 pg (04/27/19)MCHC: 33.6 gm/dL (04/27/19)MCV: 82.7 fL (04/27/19)Monocytes, absolute: 0.6 K/mcL (04/27/19)Monocytes, auto: 7.1 % (04/27/19)MPV: 8.9 fL (04/27/19)Neutrophils, absolute: 4.5 K/mcL (04/27/19)Neutrophils, auto: 54.2 % (04/27/19)Platelet: 314 K/mcL (04/27/19)RBC: 4.8 Million/mcL (04/27/19)RDW: 13.8 % (04/27/19)WBC: 8.3 K/uL (04/27/19)CHEMISTRYAGAP: 9 mEq/L (04/27/19)Albumin Level: 4 gm/dL (04/27/19)Alk Phos: 88 unit/L (04/27/19)ALT: 28 unit/L (04/27/19)AST: 12 unit/L Low (04/27/19)Bilirubin Total.: 0.1 mg/dL Low (04/27/19)BUN: 11 mg/dL (04/27/19)Calcium: 9.2 mg/dL (04/27/19)Chloride: 111 mmol/L High (04/27/19)CO2: 20 mmol/L Low (04/27/19)Creatinine: 0.67 mg/dL (04/27/19)GFR-AA: >60 (04/27/19)GFR-KIEL: >60 (04/27/19)Globulin: 3.6 gm/dL (04/27/19)Glucose Level.: 114 mg/dL High (04/27/19)Potassium Level: 3.9 mmol/L (04/27/19)Serum Qualitative : Negative (04/27/19)Sodium Level: 140 mmol/L (04/02 09/17)Total Protein: 7.6 gm/dL (04/27/19)Troponin-I: <0.02 (04/27/19)COAGULATIOND-Dimer: 450 ng/mL FEU (04/27/19)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 Spec Type: HOT OILER Swab (05/12/19)Influenza A: Negative (05/12/19)Influenza B: Negative (05/12/19)Rapid Grp A Strep, Throat: Negative (05/12/19)RSV Screen: Negative (05/12/19)Strep A Neg cmt: Strep A Neg cmt (05/12/19)PATHOLOGY RESULTS:Pathology Results No qualifying data available.DIAGNOSTIC RESULTS:No qualifying data available.ASSESSMENT AND PLAN:1. Strain of mid-backReturn for follow-up visit within 5-7 days for recheck. Take Naproxen 1 tabevery 12 hours x 3-4days and then as needed. Apply ice to mid and lower back x 2 days and thenswitch to heat. Do notsit for long periods of time. No heavy pushing, pulling or lifting x 1 week.Gentle stretchingand range of motion. Follow up with PCP. If you develop any loss of bowel orbladder, loss offeeling to lower extremities or severe pain or any other severe/emergentsymptoms-go to [id number].Ordered:naproxen, 500 mg = 1 tab(s), PO (oral), bid, PRN Pain, # 30 tab(s),Maintenance, Pharmacy: [facility] #[id number], 1 tab(s) PO (oral) bid,PRN:PainPOC Urine Dipstick (Clinic) 2. Low grade fever UA is essentially negative and no urinary symptoms. Patient declined urineculture. No fever inclinic.Ordered:naproxen, 500 mg = 1 tab(s), PO (oral), bid, PRN Pain, # 30 tab(s),Maintenance, Pharmacy: [facility] #[id number], 1 tab(s) PO (oral) bid,PRN:PainPOC Urine Dipstick (Clinic) No qualifying data available.Medications Affected this Encounter: Medication Changes/Renewals This Visit Status naproxen 500 mg, 1 tab(s), PO (oral), bid, PRN: Pain, Ordered 30 tab(s) Added Patient Education FEBRILE ILLNESS, Uncertain Cause (Adult)BACK SPRAIN/STRAIN Patient Instructions-Please read through attached education about your specific diagnosis.-Take all medication that is prescribed for you according to instructions.-Follow up with your primary care provider or any specialists you have beenreferred.-If you develop any severe or emergent symptoms, go to the closest EmergencyRoom or call 911.Thank you for choosing [facility]. We hope you are feeling bettersoon! Follow-Up Appointments With: Follow up with primary care providerAddress: BACK PAIN, , ,When: 5 to 7 daysComment: Return for follow-up visit within 5-7 days for recheck. TakeNaproxen 1 tab every 12hours x 3-4 days and then as needed. Apply ice to mid and lower back x 2 daysand then switch toheat. Do not sit for long periods of time. No heavy pushing, pulling orlifting x 1 week. Gentlestretching and range of motion. Follow up with PCP. If you develop any loss ofbowel or bladder,loss of feeling to lower extremities or severe pain or any othersevere/emergent symptoms-go toER/call 911. With: DINORAH DOOLEYAddress: [facility] [address] [place] [id number]; This document was authenticated by Desiree Christina FNP FNP on 05/26/201902:33 PM Name Value Range Interpretation Code Description Data Arianne rce(s) Supporting Document(s) ID Date Data Source [id number] 05/16/2019 07:37:05 PM EDT Harnett Tonja florez - [facility], [facility] BERKLEY LOPEZ LPATIENT IDENTIFICATION :Practice Site: [facility] Name: BERKLEY LOPEZ LMedical Record Number: [id number] Of : 2000CHIEF COMPLAINT:rm 1 c/o pain and swelling in left knee she had knee surgery apr 10 and felltoday on her leftkneeHISTORY OF PRESENT ILLNESS:19 y/o female s/p left knee dislocation graph surgery about 4 weeks agopresents with pain andswelling in left knee fell today on her left knee. Pt reports she can notbend her knee withoutpain. currently still in Physical therapy. Denies loss of sensation, tinglingor numbness, fever,redness, warmth, calf pain,REVIEW OF SYSTEMS:General: Denies Fever, chills, weakness,Neuro: No reported syncope, dizziness, or any focal numbness or weakness.Denies headaches orstiff neck.MS: left knee pain; denies hip pain, ankle pain; ; current antalgic gait;painful to bend kneeSkin: denies bruising, redness, warmth,PROBLEM LIST/PAST MEDICAL HISTORY:OngoingAcid refluxAcute constipationAcute dehydrationAcute gastritisAcute gastritisAnxietyAnxietyDehydrationDepressionDysmenorrheaGERD (gastroesophageal reflux disease)GERD (gastroesophageal reflux disease)GERD with esophagitisHeadacheHematuriaIBS (irritable bowel syndrome)Left knee painMigrainePanic attackRuptured ovarian cystSeizureSuicide attemptSyncopeThreatened miscarriageUnspecified maternal infectious and parasitic disease complicating ,second trimesterUrinary retentionUrinary retentionUTI (urinary tract infection)HistoricalPROCEDURE/SURGICAL HISTORY:Ts - Tonsillectomy (Ts - Tonsillectomy)excision of cyst near eargastroscopyexcision of cyst from e arREMOVAL OF OVARIAN CYST(S) (REMOVAL OF OVARIAN CYST(S))Colonoscopy (Colonoscopy)left knee reconstructionSOCIAL HISTORY:AlcoholAlcohol Use None., 03/02/2017Employment/School/MilitaryLearning Disabilities None. Barriers to Learning None evident. MilitaryService None., 04/05/2019Equipment/DevicesAdaptive Equipment Walker, 2 wheeled., 04/24/2018Home/EnvironmentAges and Sex Of Children in Home 8 month old daughter and 5 year oldstepdaugher. Lives WithChild(madisyn), Significant other, sep-daughter every other weekend. LivingSituation Homeindependently., 04/05/2019Nutrition/HealthRegular, Caffeine Use Frequent. Caffeine intake amount: 1 cup of coffee/ day.Sleeping concerns:No. Feels highly stressed: No., 04/24/2018Substance UseDrug Use None., 03/02/2017Tobacco/NicotineNever (less than 100 in lifetime) Use:. Exposure to Tobacco Smoke No exposureto smoke/nicotine.,04/05/2019Patient Smoking Status Former smoker., 03/02/2017FAMILY HISTORY:Grandmother: Positive Breast cancer Ovarian CaALLERGIES:Pineapple (bothers throat)penicillins (rash)Home Medications:Home Medications (3) Activeomeprazole (omeprazole 40 mg oral delayed release capsule) 40 mg = 1 cap(s),PO (oral), qDayondansetron (Zofran ODT 4 mg oral tablet, disintegrating) 4 mg = 1 tab(s),PRN, PO (oral), tidondansetron (Zofran 4 mg oral tablet) 4 mg = 1 tab(s), PRN, SubLINGUAL, [id number] EXAM:VITALS:T: 36.9 C (Tympanic) T: 98.4 F (Tympanic) HR: 104 RR: 20 BP:122/76 SpO2: 97%HT: 167.6 cm WT: 110.9 kg BMI: 39.5 General: The patient is a well developed, well nourished female in moderateacute distress.Lungs: Clear bilaterally with no rales, rhonchi, or wheeze.Heart: Regular rhythm at normal rate is present without murmur, rub, or gallop.Extremities: left knee tenderness medial aspect pos valgus, varus stretch; ;decreased ROM withknee flexion mild ttp patella or quad tendon, pos patella grind, ;sensationintact: . Distalpulses present and equal to opposing side.Neurological: Alert and Oriented X3. No focal deficits noted.skin; neg redness, warmth, swellingLAB RESULTS:HEMATOLOGYBasophils, absolute: 0.1 K/mcL (04/27/19)Basophils, auto: 1 % (04/27/19)Eosinophils, absolute: 0.2 K/mcL (04/27/19)Eosinophils, auto: 1.9 % (04/27/19)Hct: 39.7 % (04/27/19)Hgb: 13.3 gm/dL (04/27/19)Lymphocytes, absolute: 3 K/mcL (04/27/19)Lymphocytes, auto: 35.8 % (04/27/19)MCH: 27.8 pg (04/27/19)MCHC: 33.6 gm/dL (04/27/19)MCV: 82.7 fL (04/27/19)Monocytes, absolute: 0.6 K/mcL (04/27/19)Monocytes, auto: 7.1 % (04/27/19)MPV: 8.9 fL (04/27/19)Neutrophils, absolute: 4.5 K/mcL (04/27/19)Neutrophils, auto: 54.2 % (04/27/19)Platelet: 314 K/mcL (04/27/19)RBC: 4.8 Million/mcL (04/27/19)RDW: 13.8 % (04/27/19)WBC: 8.3 K/uL (04/27/19)CHEMISTRYAGAP: 9 mEq/L (04/27/19)Albumin Level: 4 gm/dL (04/27/19)Alk Phos: 88 unit/L (04/27/19)ALT: 28 unit/L (04/27/19)AST: 12 unit/L Low (04/27/19)Bilirubin Total.: 0.1 mg/dL Low (04/27/19)BUN: 11 mg/dL (04/27/19)Calcium: 9.2 mg/dL (04/27/19)Chloride: 111 mmol/L High (0 04/27/19)CO2: 20 mmol/L Low (04/27/19)Creatinine: 0.67 mg/dL (04/27/19)GFR-AA: >60 (04/27/19)GFR-KIEL: >60 (04/27/19)Globulin: 3.6 gm/dL (04/27/19)Glucose Level.: 114 mg/dL High (04/27/19)Potassium Level: 3.9 mmol/L (04/27/19)Serum Qualitative : Negative (04/27/19)Sodium Level: 140 mmol/L (04/27/19)Total Protein: 7.6 gm/dL (04/27/19)Troponin-I: <0.02 (04/27/19)COAGULATIOND-Dimer: 450 ng/mL FEU (04/27/19)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 Spec Type: HOT OILER Swab (05/12/19)Influenza A: Negative (05/12/19)Influenza B: Negative (05/12/19)Rapid Grp A Strep, Throat: Negative (05/12/19)RSV Screen: Negative (05/12/19)Strep A Neg cmt: Strep A Neg cmt (05/12/19)PATHOLOGY RESULTS:Pathology Results No qualifying data available.DIAGNOSTIC RESULTS:US Extremity Venous Lower Left: USExtremity Venous Lower Left (05/12/19)XR Knee 3 Views Left: XR Knee 3 ViewsLeft (05/16/19)ASSESSMENT AND PLAN:1. Left knee painleft knee pain s/p surgery / s/p fall over a vacuum bottle packing machine cleaner cord todayxray; no acute findingsrestice 15 minutes every 2-3 hrs x 2-3 dayselevate at restapplied porsha wrap for compressionuse knee brace if neededdiscuss with Orthopedic surgeon and during Physical therapyavoid heavy lifting , pushing, pulling, squatting until symptoms have resolved2. Fall No qualifying data available.Medications Affected this Encounter:No Prescription Activity This EncounterAdded Patient Education Knee Pain Follow-Up Appointments With: Consult to Orthopedics This document was authenticated by Haley Zayas PA PA on 05/16/201907:37 PM Name Value Range Interpretation Code Description Data [facility] rce(s) Supporting Document(s) ID Date Data Source [id number] 05/16/2019 06:29:06 PM EDT Harnett Tonja florez - [facility] EXAM:XR KNEE 3 VIEWS LEFTORDERING PROVID ER:TAHIRA Zayas PACLINICAL HISTORY:Fall, knee pain.COMPARISON STUDY:04/24/2019.TECHNIQUE: AP, lateral, and tunnel views of the left knee.FINDINGS: Normal osseous mineralization. No evidence of acute fracture or dislocation.No significant joint space narrowing. Linear radiolucent tracts again seenextending through the patella.No joint effusion or gross soft tissue abnormality.IMPRESSION: Postoperative changes. No evidence of acute fracture or dislocation.This document has been authenticated by Kit Lerma MD on 05/16/2019 6:27 PM. Thank you for referring your patient to [facility]. Name Value Range Interpretation Code Description Data [facility] rce(s) Supporting Document(s) ID Date Data Source [id number] 05/13/2019 05:32:45 PM EDT Harnett Tonja florez - [facility] BERKLEY LOPEZ LHISTORY SOURCE:Patient , mother, nurse's notes reviewed, past medical recordsCHIEF COMPLAINT:Pt reports sore throat, congestion, nausea and vomiting for the past couple ofdays. Fever todayof 101.6, Tylenol at 1130.HISTORY OF PRESENT ILLNESS:19-year-old obese white female presents to emergency department complaining ofsore throat, nasalcongestion, nausea and vomiting 2 days. Patient states that her temperaturedidn't go as highas 101.6 earlier today did take Tylenol at that time. Patient states she hasvomited 2. Denieschest pain or shortness of breath. [facility] and has notbeen exposed to anyone with symptoms of Covid 19REVIEW OF SYSTEMS:Constitutional: As per history of present illnessEye: No recent visual problemsENMT: As per history of present illnessRespiratory: As per history of present illnessCardiovascular: As per history of present illnessGastrointestinal: As per history of present illnessGenitourinary: No hematuriaHema/Lymph: Negative for bruising tendency, swollen lymph glandsEndocrine: Negative for excessive thirst, excessive hungerMusculoskeletal: No back pain, neck pain, joint pain, muscle pain, decreasedrange of motionIntegumentary: No rash, pruritus, abrasionsNeurologic: No seizures.Psychiatric: No anxiety, depressionPROBLEM LIST/PAST MEDICAL HISTORY:OngoingAcid refluxAcute constipationAcute dehydrationAcute gastritisAcute gastritisAnxietyAnxietyDehydrationDepressionDysmenorrheaGERD (gastroesophageal reflux disease)GERD (gastroesophageal reflux disease)GERD with esophagitisHeadacheHematuriaIBS (irritable bowel syndrome)Left knee painMigrainePanic attackRuptured ovarian cystSeizureSuicide attemptSyncopeThreatened miscarriageUnspecified maternal infectious and parasitic disease complicating ,second trimesterUrinary retentionUrinary retentionUTI (urinary tract infection)HistoricalPROCEDURE/SURGICAL HISTORY:Ts - Tonsillectomy (Ts - Tonsillectomy)excision of cyst near eargastroscopyexcision of cyst from earREMOVAL OF OVARIAN CYST(S) (REMOVAL OF OVARIAN CYST(S))Colonoscopy (Colonoscopy)HOME MEDICATIONS:Home Medications (3) Activeomeprazole 40 mg oral delayed release capsule 40 mg = 1 cap(s), PO (oral), qDayZofran 4 mg oral tablet 4 mg = 1 tab(s), PRN, SubLINGUAL, q3skJodpst ODT 4 mg oral tablet, disintegrating 4 mg = 1 tab(s), PRN, PO (oral),tidALLERGIES:Pineapple (bothers throat)penicillins (rash)SOCIAL HISTORY:AlcoholAlcohol Use None., 03/02/2017Employment/School/MilitaryLearning Disabilities None. Barriers to Learning None evident. MilitaryService None., 04/05/2019Equipment/De vicesAdaptive Equipment Walker, 2 wheeled., 04/24/2018Home/EnvironmentAges and Sex Of Children in Home 8 month old daughter and 5 year oldstepdaugher. Lives WithChild(madisyn), Significant other, sep-daughter every other weekend. LivingSituation Homeindependently., 04/05/2019Nutrition/HealthRegular, Caffeine Use Frequent. Caffeine intake amount: 1 cup of coffee/ day.Sleeping concerns:No. Feels highly stressed: No., 04/24/2018Substance UseDrug Use None., 03/02/2017Tobacco/NicotineNever (less than 100 in lifetime) Use:. Exposure to Tobacco Smoke No exposureto smoke/nicotine.,04/05/2019Patient Smokin g Status Former smoker., 03/02/2017FAMILY HISTORY:Grandmother: Positive Breast cancer Ovarian CaPHYSICAL EXAM:VITALS AND MEASUREMENTS:T: 98.1 F (Oral) T: 36.7 C (Oral) TMIN: 36.7 C (Oral) TMAX: 98.1F (Oral) HR: 95RR: 18 BP: 150/65 SpO2: 99% BMI: 33.3 PHYSICAL EXAMINATION:VITAL SIGNS: Reviewed. Within normal limitsGENERAL: Alert oriented 19-year-old female sitting quietly on stretcher in noacute distressHEAD: Clear nasal drainageEYES: Pupils are equal. Extraocular motions intact. EARS: Hearing grossly intact.MOUTH: Oropharynx is normal.NECK: No adenopathy, no JVD. CHEST: Chest with clear breath sounds bilaterally. No wheezes, rales, orrhonchi.CARDIAC: Regular rate and rhythm. S1 and S2, without murmurs, gallops, orrubs. LAB RESULTS:Other Virology LATEST RESULTS HISTORICALRESULTSInflu Spec Type 05/12/19 HOT OILER Swab 04/20/18NP Swab 14:17 Influenza A 05/12/19 Negative 04/20/18Negative 14:17 Influenza B 05/12/19 Negative 04/20/18Negative 14:17 RSV Screen 05/12/19 Negative 14:17 OTHER BACTERIOLOGY LATEST RESULTS Rapid Grp A Strep, 05/12/19 Negative Throat 14:17 Strep A Neg cmt 05/12/19 Strep A Neg cmt 14:17 DIAGNOSTIC RESULTS:US Breast Bilat 05/01/19 09:10:47EXAM:US BREAST BILAT ORDERING PROVIDER:Madhavi Win CLINICAL HISTORY:Bilateral breast ultrasound before clinical breast exam. Mastodynia. Familyhistory breast cancer grandmother TECHNIQUE:Both entire breasts including each axilla and retroareolar region were studiedwith real-time ultrasound. LAST CLINICAL BREAST EXAM:05/19/2019 COMPARISON:Breast ultrasound exams 2018, 2018 FINDINGS: RIGHT B REAST: The fibroglandular pattern is within normal limits. There is no evidence of shadowing mass or architectural distortion. The retroareolar region and axilla are within normal limits. LEFT BREAST: The fibroglandular pattern is within normal limits. There is no evidence of shadowing mass or architectural distortion. The retroareolar region and axilla are within normal limits. IMPRESSION:Benign ultrasonographic appearance of each breast. OVERALL FINAL ASSESSMENTAssessment ACR [id number] 2: Benign Findings. RECOMMENDATIONNormal screening recommended according to [employer] guidelines. This document has been authenticated by Harrison Molina MD on 05/01/2019 9:10AM.Thank you for referring your patient to [facility]. Signed By: Jesse LINARES, Harrison Chavez XR Chest 2 Views 04/27/19 14:51:03EXAM:XR CHEST 2 VIEWS ORDERING PROVIDER:MD Teddy Mckenna CLINICAL HISTORY:Chest pain. COMPARISON STUDY:12/02/2018. TECHNIQUE:2 views. FINDINGS:The heart is normal in size. No focal pulmonary abnormality is identified. Thebones and soft tissues are unremarkable. IMPRESSION:No evidence of acute pulmonary disease. This document has been authenticated by José Ma MD on 04/27/2019 2:51 PM.Thank you for referring your patient to [facility]. Signed By: José Ma XR Knee One or Two Views Left 04/24/19 10:32:37EXAM:XR KNEE 1 OR 2 VIEWS LEFT ORDERING PROVIDER:TAHIRA HOFFMANN CLINICAL HISTORY:Pain. COMPARISON STUDY:11/02/2018 TECHNIQUE:2 views left knee FINDINGS:No significant acute bone, joint, or soft tissue abnormality. Joint spacesappear well preserved. Alignment is unremarkable. Small joint effusion Screwtracks through the patella noted. No suspicious lytic or blastic bone lesion. IMPRESSION:No evidence for acute fracture or dislocation. Postsurgical changes, as above.Small joint effusion This document has been authenticated by Dimas Douglas MD on 04/24/2019 10:32AM. Thank you for referring your patient to [facility]. Signed By: Dimas Douglas XR Knee One or Two Views Left 04/10/19 14:39:42EXAM:XR KNEE 1 OR 2 VIEWS LEFT ORDERING PROVIDER:MD Salma Alvarado MD CLINICAL HISTORY:Intraoperative fluoroscopy. COMPARISON STUDY:None. TECHNIQUE:4 images. 58 seconds of fluoroscopy. FINDINGS:Fluoroscopic documentation of procedure without radiologist present. Please seethe operative report. IMPRESSION:Intraoperative fluoroscopy This document has been authenticated by José Ma MD on 04/10/2019 2:39 PM.Thank you for referring your patient to [facility]. Signed By: José Ma CT Abd/Pelvis w/IV Only Contrast 02/18/19 12:29:09EXAM:CT ABD/PELVIS W/IV ONLY CONTRAST ORDERING PROVIDER:MD Atilio Fuller CLINICAL HISTORY:Vomiting. Blood per rectum. COMPARISON:None. TECHNIQUE:CT abdomen and pelvis was performed from the diaphragm through the symphysispubis after 80 ml of intravenous Omnipaque contrast and reformatted in thesagittal and coronal planes. Total DLP is 1087 mGy-cm. FINDINGS: BASILAR CHEST: No consolidation, nodule or effusion. LIVER: No abnormal focal enhancement or mass effect. The longitudinal axismeasures approximately 19 cm, which is enlarged. BILIARY TRACT: The gallbladder is phy siologically distended and unremarkable.No intra or extrahepatic biliary ductal dilation. SPLEEN: The spleen is enlarged, measuring 14 cm in the transverse axis. Nofocalmass identified. PANCREAS: No mass or inflammatory process. Normal pancreatic duct. ADRENAL GLANDS: Unremarkable. No mass. URINARY SYSTEM: The kidneys are normal in size. There are no calculi. Nohydronephrosis or mass noted. The ureters are well visualized and unremarkable.Bladder is normal. No evidence of wall thickening, mass, calculi or debris. GI TRACT: Suboptimally visualized in the absence of oral contrast. There is nomass or dilation. No mural thickening seen. There is no hernia. No diverticulaseen. The appendix is visualized and unremarkable. REPRODUCTIVE SYSTEM: Moderate free pelvic fluid is seen. PERITONEAL SPACE: No free air. No additional free fluid collections. Noadenopathy seen. No evidence of a mass. RETROPERITONEAL SPACE: No adenopathy seen. No evidence of a mass. There is noaneurysm or dissection of the aorta. DEBBIE ALISTAIR AND EXTRA-ABDOMINAL SOFT TISSUES: There is no inguinal adenopathy orhernia. The osseous structures are within normal limits. IMPRESSION:Mild hepatosplenomegaly.Moderate free pelvic fluid.Otherwise unremarkable exam. This document has been authenticated by Wilfredo Albright MD on 02/18/201912:29PM. Thank you for referring your patient to [facility]. Signed By: WILFREDO ALBRIGHT CT Abd/Pelvis w/o All Contrast 04/03/19 14:22:17EXAM:Noncontrast CT of the abdomen and pelvis. ORDERING PROVIDER:DAVID HERNANDEZ CLINICAL HISTORY:Left lower quadrant pain. COMPARISON STUDY:02/18/2019. TECHNIQUE:A routine CT of the abdomen and pelvis was performed without oral orintravenouscontrast. Coronal and sagittal reformations were produced. TOTAL DLP: 1269.2 mGy*cm. FINDINGS: BASILAR THORAX: No consolidation, mass, or effusion. Normal cardiac size. LIVER: Normal in size and density. No evidence of parenchymal mass. BILIARY TRACT: No radiopaque gallstones. No evidence of cholecystitis or bileduct obstruction. PANCREAS: Normal for noncontrast technique. No evidence of mass, inflammation,or ductal dilatation. SPLEEN: Normal for noncontrast technique. ADRENAL GLANDS: Unremarkable. No mass. URINARY TRACT: Normal size of both kidneys. No evidence of renal mass. Norenal,ureteral, or bladder stones. No hydronephrosis or hydroureter. Collapsedbladderwithout obvious wall thickening or mass. GASTROINTESTINAL TRACT: Unremarkable appearance of the stomach. No evidence ofbowel obstruction. No wall thickening or mass appreciated. Normal appearance ofthe appendix. UTERUS AND ADNEXA: Retroverted uterus. No adnexal mass. PERITONEAL SPACE: No free air, free fluid, mass or adenopathy. RETROPERITONEAL SPACE: No aortic aneurysm. No retroperitoneal adenopathy ormass. BODY WALL: No hernia or mass. MUSCULOSKELETAL: No acute fracture or suspicious osseous lesion. IMPRESSION:No evidence of obstructive uropathy or other acute process. Normal appendix. This document has been authenticated by Kit Lerma MD on 04/03/2019 2:22 PM.Thank you for referring your patient to [facility]. Signed By: Kti Lerma MD US Extremity Venous Lower Left 05/12/19 13:39:55EXAM:US EXTREMITY VENOUS LOWER LEFT ORDERING PROVIDER:TAHIRA HOFFMANN CLINICAL HISTORY:Left leg pain COMPARISON STUDY:None TECHNIQUE:Real-time and compressive and augmentative sonography with venous Dopplerevaluation and spectral analysis. FINDINGS:Sonographic images with color and spectral analysis of the left lower extremityvenous system was performed. The lower extremity veins demonstrate normal flowand compressibility without evidence of thrombus. No popliteal cyst. Contralateral common femoral vein is patent. IMPRESSION: No evidence for acute left lower extremity DVT. This document has been authenticated by Chidi Brody MD on 05/12/2019 1:39 PM.Thank you for referring your patient to [facility]. Signed By: Chidi Brody MD US Pelvis Transvaginal Only 02/18/19 11:06:54EXAM:US PELVIS TRANSVAGINAL ONLY ORDERING PROVIDER:MD Atilio Fuller CLINICAL HISTORY:Vomiting. Blood per rectum. COMPARISON STUDY:Pelvic ultrasound on 01/08/2018 TECHNIQUE:Transvaginal real-time 2-dimensional grayscale, color Doppler with spectralanalysis of the arterial and venous blood supply was performed of each ovary.Ultrasound evaluation of the uterus was also obtained. FINDINGS: UTERUS: Retroverted and normal in size measuring 6.7 x 3.7 x 5.3 cm. Myometrialechotexture is homogeneous. No fibroids are noted. ENDOMETRIAL ECHO: Measures 1 mm and is homogeneous without mass, cyst or fluid. RIGHT OVARY: 4.4 x 2.3 x 2.6 cm. There is no solid mass. No suspicious cystidentified. Normal color and spectral waveforms are seen within the arterialandvenous blood supply of the right ovary. LEFT OVARY: 4.9 x 2.2 x 2.5 cm. There is no solid mass. No suspicious cystidentified. Normal color and spectral waveforms are seen within the arterialandvenous blood supply of the left ovary. ADNEXA: No masses. No free fluid. IMPRESSION:Retroverted uterus is noted. Otherwise unremarkable exam. This document has been authenticated by Wilfredo Albright MD on 02/18/201911:06AM. Thank you for referring your patient to [facility]. Signed By: WILFREDO ALBRIGHTCARDIOLOGY RESULTS:No qualifying data available.ED COURSE: Medication Dose Route FrequencyPatient examined, swabs for influenza rapid strep and RSV obtained which wereall negative. Advised patient that a full throat culture will be obtained. Advised tocontinue using Tylenoland ibuprofen for the fever. Prescription written for Zofran 4 mgDIAGNOSIS AND IMPRESSION: DiagnosisClassification Dx Type Admitting Acute febrile illness Medical DischargePLAN:InpatientNo active inpatient medicationsHomeomeprazole 40 mg oral delayed release capsule, 40 mg= 1 cap(s), PO (oral), qDayZofran 4 mg oral tablet, 4 mg= 1 tab(s), SubLINGUAL, q6hr, PRNZofran ODT 4 mg oral tablet, disintegrating, 4 mg= 1 tab(s), PO (oral), tid,PRNED SUPERVISED APC attestationBased on the medical record the care appears appropriate.This document was authenticated by Amanda Lee FNP FNP on 05/12/201905:31 PMSent for Co-authentication by Nilton Willson DO DO Co-authenticatedon 05/13/2019 05:32 PM Name Value Range Interpretation Code Description Data Arianne rce(s) Supporting Document(s) ID Date Data Source [id number] 05/12/2019 02:39:15 PM EDT [facility]ja [facility] - [facility] Name Value Range Interpretation Code Description Data Arianne rce(s) Supporting Document(s) RSV Screen Negative [facility] Krishna lorraine - [facility] Respiratory Syncytial Virus Screening is performed by Nucleic Acid Amplification Testing (NAAT). ID Date Data Source [id number] 05/12/2019 02:39:04 PM EDT [facility]ja [facility] - [facility] Name Value Range Interpretation Code Description Data Arianne rce(s) Supporting Document(s) Influenza A Negative [facility] Tonja r[facility] - [facility] Rapid Influenza testing performed by Nuc leic Acid Amplification Testing (NAAT) Influenza B Negative [facility] Tonja rdes - [facility] Influ Spec Type [facility] Sarah - [facility] ID Date Data Source [id number] 05/12/2019 02:27:25 PM EDT [facility] Tonja rdes - [facility] Name Value Range Interpretation Code Description Data Arianne rce(s) Supporting Document(s) Rapid Grp A Neg [facility] - [facility] Added on by Discern Audit Strep A Neg cmt [facility] - [facility] ID Date Data Source [id number] 05/12/2019 02:27:25 PM EDT [facility] Tonja rdes - [facility] Name Value Range Interpretation Code Description Data Arianne rce(s) Supporting Document(s) Rapid Grp A Strep, Throat Negative [facility] - [facility] Rapid Group A Streptococcus Screen is pe rformed by Enzyme Immunoassay. ID Date Data Source [id number] 05/12/2019 01:42:04 PM EDT [facility] Tonja florez - [facility], [facility] EXAM:US EXTREMITY VENOUS LOWER LEFTORDER ING PROVIDER:TAHIRA Bella PACLINICAL HISTORY:Left leg painCOMPARISON STUDY:NoneTECHNIQUE:Real-time and compressive and augmentative sonography with venous Dopplerevaluation and spectral analysis.FINDINGS:Sonographic images with color and spectral analysis of the left lowerextremity venous system was performed. The lower extremity veins demonstratenormal flow and compressibility without evidence of thrombus.No popliteal cyst.Contralateral common femoral vein is patent.IMPRESSION: No evidence for acute left lower extremity DVT.This document has been authenticated by Chidi Brody MD on 05/12/2019 1:39 PM. Thank you for referring your patient to [facility]. Name Value Range Interpretation Code Description Data Arianne rce(s) Supporting Document(s) ID Date Data Source [id number] 05/01/2019 09:12:48 AM EST [facility] Tonja florez - [facility], [facility] EXAM: US BREAST BILATORDERING PROVIDER:Madhavi Montero CLINICAL HISTORY:Bilateral breast ultrasound before clinical breast exam. Mastodynia. Familyhistory breast cancer grandmotherTECHNIQUE:Both entire breasts including each axilla and retroareolar region were studiedwith real-time ultrasound.LAST CLINICAL BREAST EXAM:05/19/2019COMPARISON:Breast ultrasound exams 2019, 2018FINDINGS:RIGHT BREAST: The fibroglandular pattern is within normal limits.There is no evidence of shadowing mass or architectural distortion. The retroareolar region and axilla are within normal limits. LEFT BREAST: The fibroglandular pattern is within normal limits.There is no evidence of shadowing mass or architectural distortion. The retroareolar region and axilla are within normal limits. IMPRESSION:Benign ultrasonographic appearance of each breast.OVERALL FINAL ASSESSMENTAssessment ACR [id number] 2: Benign Findings.RECOMMENDATIONNormal screening recommended according to [employer] guidelines.This document has been authenticated by Harrison Molina MD on 05/01/2019 9:10AM. Thank you for referring your patient to [facility]. Name Value Range Interpretation Code Description Data Arianne rce(s) Supporting Document(s) ID Date Data Source [id number] 04/27/2019 05:09:56 PM EST [facility] Tonja florez - [facility], [facility] SOURCE:Patient , previous charts reviewed, nurses notes reviewedCHIEF COMPLAINT:pt reports she was sitting on the couch around 0930 when she started havingsharp left sidedchest pain and nausea. comes and goes. threw up, cp got worse.HISTORY OF PRESENT ILLNESS:This is a 18-year-old female from home complaining of burning chest pain sincethis morning. Patient with past medical history of gastritis, GERD and irritable bowelsyndrome. Sheused to see pediatric GI DR. Correia and had endoscopy and colonoscopy. Shestopped takingomeprazole during her . She's been eating [employer], hamburgers.Wednesday she feltfine. Yesterday vomited all day and prior to going that had a burger. Sincewaking up thismorning she's had a burning pain substernal to sternal notch thatintermittently. She vomitedonce which seemed to make it better. Upon my evaluation her chest pain hasresolvedREVIEW OF SYSTEMS:Complete review of systems reviewed and negative apart from that mentioned inHPIPROBLEM LIST/PAST MEDICAL HISTORY:OngoingAcute constipationAcute dehydrationAcute gastritisAnxietyAnxietyDehydrationDepressionDysmenorrheaGERD (gastroesophageal reflux disease)GERD (gastroesophageal reflux disease)HeadacheHematuriaIBS (irritable bowel syndrome)Left knee painMigrainePanic attackRuptured ovarian cystSeizureSuicide attemptSyncopeThreatened miscarriageUnspecified maternal infectious and parasitic disease complicating ,second trimesterUrinary retentionUrinary retentionUTI (urinary tract infection)HistoricalPROCEDURE/SURGICAL HISTORY:Ts - Tonsillectomy (Ts - Tonsillectomy)excision of cyst near eargastroscopyexcision of cyst from earREMOVAL OF OVARIAN CYST(S) (REMOVAL OF OVARIAN CYST(S))Colonoscopy (Colonoscopy)HOME MEDICATIONS:Home Medications (1) ActivemedroxyPROGESTERone 150 mg/mL intramuscular suspension 150 mg, IMALLERGIES:Pineapple (bothers throat)penicillins (rash)SOCIAL HISTORY:AlcoholAlcohol Use None., 03/02/2017Employment/School/MilitaryLearning Disabilities None. Barriers to Learning None evident. MilitaryService None., 04/05/2019Equipment/DevicesAdaptive Equipment Walker, 2 wheeled., 04/24/2018Home/EnvironmentAges and Sex Of Children in Home 8 month old daughter and 5 year oldstepdaugher. Lives WithChild(madisyn), Significant other, sep-daughter every other weekend. LivingSituation Homeindependently., 04/05/2019Nutrition/HealthRegular, Caffeine Use Frequent. Caffeine intake amount: 1 cup of coffee/ day.Sleeping concerns:No. Feels highly stressed: No., 04/24/2018Substance UseDrug Use None., 03/02/2017Tobacco/NicotineNever (less than 100 in lifetime) Use:. Exposure to Tobacco Smoke No exposureto smoke/nicotine.,04/05/2019Patient Smoking Status Former smoker., 03/02/2017FAMILY HISTORY:Grandmother: Positive Breast cancer Ovarian CaPHYSICAL EXAM:VITALS AND MEASUREMENTS:T: 36.7 C (Oral) T: 98.1 F (Oral) TMIN: 36.7 C (Oral) TMAX: 36.8C (Oral)HR: 90(Monitored) RR: 18 BP: 143/82 SpO2: 100% BMI: 33.1 VITAL SIGNS: Reviewed. Afebrile.GENERAL: Well appearing. No diaphoresis.HEAD: Normocephalic. No signs of head trauma.EYES: Pupils are equal. Extraocular motions intact. Normal conjunctivae.EARS: Hearing is intact. External ears normal. TMs clear bilaterally.NOSE: No sinus tenderness. No nasal congestion .MOUTH: Moist mucous membranes. Uvula midline. Oropharynx without erythemaor exudates o rperitonsillar abscess.NECK: Supple. No adenopathy. No JVD.CHEST: Chest wall without tenderness. Lungs with clear breath soundsbilaterally. No wheezes,rales, or rhonchi.CARDIAC: Regular rate and rhythm. Normal S1 and S2, without murmurs.VASCULAR: Peripheral pulses normal and equal in all extremities.ABDOMEN: No sign of distention. Bowel sounds normal. Soft, withoutdetectable tenderness. Norebound or guarding. No masses palpated.MUSCULOSKELETAL: Good range of motion of all major joints. Extremities withoutclubbing,cyanosis or edema.NEUROLOGIC EXAM: Alert and oriented x 3. No focal sensory or stre ngthdeficits. Speech normal.Follows commands. No ataxia or dysmetria.PSYCHIATRIC: Mood normal.SKIN: No rash, lesions or lacerations.LAB RESULTS:CBC LATEST RESULTS HISTORICALRESULTSWBC 04/27/19 8.3 .1 14:03 RBC 04/27/19 4.80 .84 14:03 Hgb 04/27/19 13.3 04/03/2012.3 14:03 Hct 0 04/27/19 39.7 04/03/2039.0 14:03 MCV 04/27/19 82.7 04/03/2081.7 14:03 MCH 04/27/19 27.8 04/03/2026.4 14:03 MCHC 04/27/19 33.6 04/03/2032.1 14:03 MPV 04/27/19 8.9 .2 14:03 RDW 04/27/19 13.8 04/03/2013.1 14:03 Platelet 04/27/19 314 14:03 DIFFERENTIAL LATEST RESULTS HISTORICALRESULTSNeutrophils, absolute 04/27/19 4.5 .7 14:03 Lymphocytes, absolute 04/27/19 3.0 .8 14:03 Monocytes, absolute 04/27/19 0.6 200.4 14:03 Eosinophils, absolute 04/27/19 0.2 .1 14:03 Basophils, absolute 04/27/19 0.1 .1 14:03 Neutrophils, auto 04/27/19 54.2 04/03/2057.3 14:03 Lymphocytes, auto 04/27/19 35.8 04/03/2033.4 14:03 Monocytes, auto 04/27/19 7.1 .3 14:03 Eosinophils, auto 04/27/19 1.9 .3 14:03 Basophils, auto 04/27/19 1.0 200.7 14:03 COAGULATION LATEST RESULTS HISTORICALRESULTSD-Dimer 04/27/19 450 High 14:03 ROUTINE CHEMISTRY LATEST RESULTS HISTORICALRESULTSSodium Level 04/27/19 140 14:03 Potassium Level 04/27/19 3.9 203.7 14:03 Chloride 04/27/19 111 High High 14:03 CO2 04/27/19 20 Low 04/03/2020 Low 14:03 AGAP 04/27/19 9 14:03 Glucose Level. 04/27/19 114 High High 14:03 BUN 04/27/19 11 04/03/2012 14:03 Creatinine 04/27/19 0.67 .67 14:03 GFR-AA 04/27/19 >60 04/03/19>60 14:03 GFR-KIEL 04/27/19 >60 04/03/19>60 14:03 Calcium 04/27/19 9.2 .4 14:03 Albumin Level 04/27/19 4.0 .0 14:03 Total Protein 04/27/19 7.6 .6 14:03 Globulin 04/27/19 3.6 .6 14:03 Alk Phos 04/27/19 88 04/03/2088 1 4:03 AST 04/27/19 12 Low 04/03/2012 Low 14:03 ALT 04/27/19 28 04/03/2031 14:03 Bilirubin Total. 04/27/19 0.1 Low .3 14:03 CARDIAC ENZYMES LATEST RESULTS HISTORICALRESULTSTroponin-I 04/27/19 <0.02 11/28/18<0.02 14:03 TESTING LATEST RESULTS HISTORICALRESULTSSerum Qualitative 04/27/19 Negative 04/03/19NegativePregnancy 14:03 XR Chest 2 Views 04/27/19 14:51:03IMPRESSION:No evidence of acute pulmonary disease. This document has been authenticated by José Ma MD on 04/27/2019 2:51 PM.Thank you for referring your patient to [facility]. Signed By: José MaCARDIOLOGY RESULTS:ECG - 92bpm, sinus rhythm, normal axis, normal intervals, no st changes, noevidence of ischemiaED COURSE: Medication Dose Route Frequency lidocaine topical (Lidocaine Viscous) 10 mL PO (oral)Soln Now Al hydroxide/Mg hydroxide/simethicone 10 mL PO (oral)Susp Now(Maalox) famotidine (Pepcid) 40 mg PO (oral) Tab Now took pepcid, refused gi cocktail ACS was considered, ECG without stemi, Troponin <0.02 Ddimer neg in the setting of low prob PERC score for PE- she had the knee arthroscopy but has not been sedentary- i would not think chest pain from PE would be intermittent nor cause vomiting HCG neg Chest x-ray without pneumonia, pulmonary vascular congestion or rib fractures At reassessment she continues to be 100% improvedDIAGNOSIS AND IMPRESSION: DiagnosisClassification Dx Type Admitting Acid reflux Medical Discharge Acute gastritis Medical DischargePLAN:InpatientNo active inpatient medicationsHomemedroxyPROGESTERone 150 mg/mL intramuscular suspension, 150 mg, IMomeprazole 40 mg oral delayed release capsule, 40 mg= 1 cap(s), PO (oral), qDay discharged home in stable and improved condition---Your lab work and ECG show that you are not having a heart attackChest xray was normal TREATMENT PLAN- restart omeprazole once a day before breakfast- zofran every 8 hours for nausea/vomiting- avoid caffeine, soda, smoking, spicy or fatty foodsSchedule a follow up appointment with your PCP to ensure that you areimproving.You may need referral to GI specialistWe wish you a speedy recovery This document was authenticated by Teddy Mckenna MD MD on 04/27/2019 05:09PM Name Value Range Interpretation Code Description Data Arianne rce(s) Supporting Document(s) ID Date Data Source [id number] 04/27/2019 02:53:12 PM EST [facility] Tonja florez - [facility], [facility] EXAM:XR CHEST 2 VIEWSORDERING PROVIDER:Kathy MckennaCLINICAL HISTORY:Chest pain.COMPARISON STUDY:12/02/2018.TECHNIQUE:2 views.FINDINGS:The heart is normal in size. No focal pulmonary abnormality is identified.The bones and soft tissues are unremarkable.IMPRESSION: No evidence of acute pulmonary disease.This document has been authenticated by José Ma MD on 04/27/2019 2:51PM. Thank you for referring your patient to [facility]. Name Value Range Interpretation Code Description Data Arianne rce(s) Supporting Document(s) ID Date Data Source [id number] 04/27/2019 04:17:48 PM EST [facility] Tonja rdes - [facility] Name Value Range Interpretation Code Description Data Arianne rce(s) Supporting Document(s) D-Dimer 450 ng/mL FEU <=499 [facility] L ourdes - [facility] * Diagnosis should not be based solely o n the results of this test.Results should be interpreted in conjunction with clinical findings.Negative Predictive Value for thromboembolism for D-Dimer test results below the cut off of 500 ng/ml FEU is 98%. ID Date Data Source [id number] 04/27/2019 02:39:21 PM EST [facility] Tonja rdes - [facility] Name Value Range Interpretation Code Description Data Arianne rce(s) Supporting Document(s) Serum Qualitative Negative [facility] Sarah - [facility] ID Date Data Source [id number] 04/27/2019 02:26:23 PM EST [facility] Tonja rdes - [facility] Name Value Range Interpretation Code Description Data Arianne rce(s) Supporting Document(s) GFR-KIEL >60 mL/min/1.73m2 >=60 [facility] eGFR added on by Discern Expert.* GFR-NA A has been calculated for Non- Americans, GFR-AA has been calculated for Americans. They are based on the standardized IDMS creatinine value and do not include the patient weight. If the patient's weight is not withThis estimation applies to patients with stable renal function only.An average GFR of greater than or equal to 60 mL/min/1.73 square meters is suggestive of normal kidney function.An average GFR for 3 months or more of 30-59 is suggestive of stage 3 kidney disease.An average GFR for 3 months or more of 15-29 is suggestive of stage 4 kidney disease.An average GFR for 3 months or more of less than 15 is suggestive of stage 5 kidney disease. GFR-AA >60 mL/min/1.73m2 >=60 [facility] ID Date Data Source [id number] 04/27/2019 02:26:22 PM EST [facility] Tnoja [facility] - [facility] Name Value Range Interpretation Code Description Data Arianne rce(s) Supporting Document(s) Troponin-I <0.02 ng/mL <=0.04 [facility] Tonja [facility] Normal: <0.04 ng/mLIschemic disease: 0.04-0.10 ng/mLConsistent with AMI: > 0.10 ng/mLPatients taking Biotin supplements in excess of the daily recommended allowance, may have falsely elevated results due to interference of Biotin in the assay measurement. ID Date Data Source [id number] 04/27/2019 02:26:21 PM EST [facility] Tonja [facility] - [facility] Name Value Range Interpretation Code Description Data Arianne rce(s) Supporting Document(s) Sodium Level 140 mmol/L 136-144 [facility] Lo ur[facility] - [facility] Potassium Level 3.9 mmol/L 3.6-5.1 [facility] Chloride 111 mmol/L 98-110 Above high normal [facility] CO2 20 mmol/L 22-32 Below low normal [facility] AGAP 9 mEq/L 4-14 [facility] Lour lorraine - [facility] Glucose Level. 114 mg/dL 65-100 Above high normal [facility] If patient is taking either of these dominguez gs, there has been a bias identified:Sulfasalazine may cause falsely decreased resultsSulfaspyridine may cause falsely increased results BUN 11 mg/dL 8-23 [facility] Lour [facility] Creatinine 0.67 mg/dL 0.40-1.10 [facility] L[facility] - [facility] Calcium 9.2 mg/dL 8.5-10.5 [facility] - [facility] Total Protein 7.6 gm/dL 6.4-8.2 [facility] L our[facility] - [facility] Globulin 3.6 gm/dL 1.5-3.8 [facility] L[facility] - [facility] Albumin Level 4.0 gm/dL 3.3-4.8 [facility] L [facility] - [facility] Bilirubin Total. 0.1 mg/dL 0.2-1.0 Below low normal [facility] AST 12 unit/L 15-41 Below low normal [facility] If patient is taking either of these dominguez gs, there has been a bias identified:Sulfasalazine may cause falsely decreased resultsSulfaspyridine may cause falsely decreased results Alk Phos 88 unit/L 45-117 [facility] - [facility] ALT 28 unit/L 14-54 [facility] - [facility] If patient is taking either of these dominguez gs, there has been a bias identified:Sulfasalazine may cause falsely decreased resultsSulfaspyridine may cause falsely decreased results ID Date Data Source [id number] 04/27/2019 02:07:48 PM EST [facility] Ton[facility] - [facility] Name Value Range Interpretation Code Description Data Arianne rce(s) Supporting Document(s) WBC 8.3 K/uL 4.0-10.0 [facility] - [facility] RBC 4.80 Million/mcL 4.20-5.40 [facility] Hgb 13.3 gm/dL 12.0-16.0 [facility] - [facility] Hct 39.7 % 36.0-47.0 [facility] - [facility] MCV 82.7 fL 82.0-98.0 [facility] - [facility] MCH 27.8 pg 26.0-33.0 [facility] - [facility] MCHC 33.6 gm/dL 32.0-36.0 [facility] - [facility] RDW 13.8 % 11.4-14.4 [facility] Platelet 314 K/mcL 150-400 [facility] - [facility] MPV 8.9 fL 7.4-10.4 [facility] - [facility] ID Date Data Source [id number] 04/27/2019 02:07:48 PM EST [facility] Tonja [facility] - [facility] Name Value Range Interpretation Code Description Data Arianne rce(s) Supporting Document(s) Neutrophils, auto 54.2 % 40.0-80.0 [facility] Neutrophils, absolute 4.5 K/mcL 1.5-7.7 [facility] Lymphocytes, auto 35.8 % 15.0-40.0 [facility] Lymphocytes, absolute 3.0 K/mcL 1.5-4.0 [facility] Monocytes, auto 7.1 % 0.0-12.0 [facility] - [facility] Monocytes, absolute 0.6 K/mcL 0.2-1.0 [facility] Eosinophils, auto 1.9 % 0.0-5.0 [facility] Eosinophils, absolute 0.2 K/mcL 0.0-0.3 [facility] Basophils, auto 1.0 % 0.0-2.0 [facility] Basophils, absolute 0.1 K/mcL 0.0-0.1 [facility] ID Date Data Source [id number] 04/24/2019 10:34:40 AM EST [facility] Tonja [facility] - [facility] EXAM:XR KNEE 1 OR 2 VIEWS LEFTORDERING P ROVIDER:TAHIRA Bella PACLINICAL HISTORY:Pain.COMPARISON STUDY:11/02/2018TECHNIQUE: 2 views left knee FINDINGS: No significant acute bone, joint, or soft tissue abnormality. Joint spacesappear well preserved. Alignment is unremarkable. Small joint effusion Screwtracks through the patella noted.No suspicious lytic or blastic bone lesion.IMPRESSION: No evidence for acute fracture or dislocation. Postsurgical changes, as above.Small joint effusionThis document has been authenticated by Dimas Douglas MD on 04/24/201910:32 AM. Thank you for referring your patient to [facility]. Name Value Range Interpretation Code Description Data Arianne rce(s) Supporting Document(s) ID Date Data Source [id number] 04/10/2019 03:08:28 PM EST [facility] Tonja florez - [facility] BERKLEY LOPEZ [facility] is a pleasant pat ient of Dr. Salma Martines who underwent knee surgery.At the requestof Dr. Martines, an adductor canal block was discussed with the patient is anadjunct to theirpostoperative pain management plan. The risks, benefits, and alternatives ofthe block werediscussed with the patient and include, but are not limited to, infection,bleeding, seizures,convulsions, nerve damage, failed anesthesia, as well as a hematoma. Thepatient understood theserisks and wished for the procedure to be done in the PACU following theirsurgery. All questionsregarding the procedure were answered to the patient's full satisfaction andthey signed theconsent prior to any sedation being given to them. The patient was evaluated in the PACU and the effects of the anesthesia wereresolved such thatthe patient could move their legs. After an appropriate timeout was performed,the patient's midthigh was prepped with chlorhexidine 1%. Using ultrasound assistance, [id number] Tuohy epiduralneedle was inserted towards the adductor canal. A distinct pop was felt as thesubsartorialfascia was pierced and the patient did not complain of any discomfort withneedle insertion. Atthis time, aspiration for heme was negative and 5 cc of 0.2% ropivacaine wasinjected withoutdifficulty. The patient reported no discomfort nor was there any resistancewith initialinjection. A total of 30 cc of local anesthetic was injected in 5 ccincrements with negativeaspiration for heme every single time. The patient reported no discomfort norwas there anyresistance with any of the injections at any time. The patient tolerated theprocedure well.It was performed easily, atraumatically, and without complication. There wasadequate spreadof local anesthetic seen around the subsartorial femoral artery and there wasno intraneural orintravascular injection noted on the ultrasound. This document was authenticated by Radha LINARES, Pelon Ambriz MD on 04/10/2019 03:08 PM Name Value Range Interpretation Code Description Data Arianne rce(s) Supporting Document(s) ID Date Data Source [id number] 04/10/2019 03:02:28 PM EST [facility] Tonja florez - [facility] LREPORT OF OPERATION DA TE OF PROCEDURE: April 10, 2019 PREOPERATIVE DIAGNOSIS:1. Left knee recurrent patellar dislocation/instability POSTOPERATIVE DIAGNOSIS:1. same PROCEDURE PERFORMED:1. Left knee open medial patellofemoral ligament reconstruction withgracilis allograft2. Left knee medial capsular plication and reefing3. Intraoperative fluoroscopic use and interpretation by attending surgeon SURGEON:Salma Alvarado MD ASSISTANTS:TAHIRA Vora assisted in graft preparation, tunnel placement, retractionvisualization andclosure ANESTHESIA:Gen. INDICATIONS:18-year-old female who has had recurrent lateral patellar dislocation of theleft knee for thelast 1-2 years. I have been following her and treating this conservatively kaur was unableto undergo surgical intervention prior to this for several reasons. InitialMRI indicated noarticular chondral injury of the patellofemoral compartment. She initiallydid very well withPT and bracing, had several recurrences within the last several months and maydifficult forher to do her activities of daily life, taking care of her child, and work.She does not fullytrust the knee. Based on this, she came to me discussed surgical options.Based on preoperativeimaging and lack of patella gaurang, I felt that MPFL reconstruction was indicated All risks and benefits were discussed including risks of infection,bleeding, nerveinjury, numbness laterally, stiffness, recurrent instability, anterior kneepain, patellafracture, rupture of the graft, loss of motion, hardware failure, need foradditional surgery. Consent was signed and she elected to proceed. NARRATIVE:Patient met in preoperative hold. Consent reviewed and she elected toproceed. The left kneewas marked. Brought to operating room where general anesthesia wasadministered. Positionedsupine on the radiolucent table. Left thigh tourniquet and bone foam rampposition. Exam underanesthesia demonstrated over 2+ quadrants of medial to lateral translation ofthe patella infull extension to 30. Negative J sign. Anneliese stable. Varus valgusstable. The left legwas then prepped and draped sense of fashion. Routine antibiotics with Ancefwere administered. Timeout was performed in which the proper patient, surgical site, andprocedure were reviewedand confirmed by all. While we began with the initial approach to the knee, a gracilis allograft wasprepared on theback table tapered to a 4 mm diameter at the ends and whipstitchappropriately. Overall lengthwas approximately 20 cm. This was then wrapped in moist towel until needed. After timeout performed, the limb was e xsanguinated with Esmarch andtourniquet [id number] mmHg. I then began with a standard midline approach over the patella.Sharp dissectionwas carried out through skin a large medial soft tissue flap was raised. Themedial borderof the patella and retinaculum was identified and then incised along themedial facet ofthe patella. The articular margin was identified and inspection of the jointconfirmedno patellofemoral chondromalacia or degenerative changes. After preparationof the medialborder of the patella, 2 parallel guidewires were drilled in the proximal twothirds of thepatella parallel to each other and confirmed to be in good positionradiographically. Bothvisually and radiographically no violation of the joint was noted. Next, eachtunnel wasthen reamed to a depth of 25 mm over the guidewires with the 4.5 mm reamerwith good corticalbone noted circumferentially. The guidewires were then removed. Next, using the Arthrex MPFL reconstruction set, the gracilis graft wasanchored to the medialborder of the patella using 2x4.75 millimeter swivel lock anchors.Approximately 15 mm ofgraft were noted to be fixed within the tunnels and there is excellentbicortical fixation witheach anchor. The FiberWire suture ends were then tied down over each limb ofthe graft at itsfixation point for additional security. Next, proceeded with preparation of the femoral tunnel. The radiolucent guidefrom the Arthrexset was positioned over the medial aspect of the femur and marked. Next, asmall longitudinalincision was made sharply through skin and subcutaneous tissue down to themedial retinaculum. The medial e picondyle was palpated and just proximal and posterior to thisthe retinaculumand periosteum was incised longitudinally and the bone visualized. Next, theradiolucentguide positioned at Schottle's point and confirmed to be in good positionradiographically.Next, the guidepin was the femoral tunnel was then drilled with slightproximal and anteriororientation out through the lateral cortex of the femur. Next, 6 mm reamerwas used to drilltunnel to a depth of approximately 30-35 mm. Good circumferential bone wasnoted visually. We then bluntly dissected the path for the graft between the vastus medialisand medialretinaculum superficially and the capsule on the deep side. A blunt hemostatwas used to developthis layer down to the femoral tunnel. The graft was then shuttled downthrough this layer andnoted to have appropriate length and position. The suture ends were thenpassed through theend of the Beath tip guidewire which is drawn out the lateral femoral cortex.The knee wasthen positioned in 30 of flexion and traction placed on the sutures againconfirming visuallythat the graft was well within the femoral tunnel. Next, a 6 x 23 mm biocomposite screw wasplaced with strong interference fit of the graft within the aperture withexcellent corticalfixation and security. We then brought the knee through a full range ofmotion with extensionto 0 noted to have 0-1 quadrant of lateral translation much improved frompreoperative exam.The knee was flexed over 90 and no evidence of any loosening or graft pulloutwas noted. The2 limbs of the graft were noted to be in good tension from 0-60 at whichpoint the patella waswell secured within the trochlear groove. No lateral tilt or impingement wasnoted. The wounds were then copiously with Triple Antibiotic. Medial capsule andretinaculum underwentimbrication with #1 Vicryl suture for additional security against lateraltranslation. Thefascial medially was closed with interrupted #1 Vicryl. Subcutaneous tissuesclosed withinterrupted 2-0 Vicryl followed by running 3-0 Monocryl subcutaneous stitchesand glue. Thetourniquet was let down for a total time of 73 minutes. 20 cc of half percentMarcaine withepinephrine was placed for local analgesia followed by a standard steriledressing and kneeimmobilization brace. Patient was then awoken from anesthesia and brought tothe PACU in stablecondition. Postoperatively, we'll begin range of motion physical therapy in a Bledsoehinged range of motionbrace. This will be done accordingly to the MPFL reconstruction PT protocol. EBL:Min FLUIDS:IV crystalloid TOURNIQUET TIME:73 minutes IMPLANTS:1. 4.75 biocomposite anchors in patella x 22. 6x23 mm biocomposite interference screw in femur COMPLICATIONS:none SPECIMENS/CULTURES:none DRAINS/PACKS:none This operative report was dictated using Zadego software. Every attempt tocorrect verbalinaccuracies have been made.This document was authenticated by Salma Alvarado MD MD on04/10/2019 03:02 PM Name Value Range Interpretation Code Description Data Arianne rce(s) Supporting Document(s) ID Date Data Source [id number] 04/10/2019 02:41:43 PM EST [facility] Tonja florez - [facility] EXAM:XR KNEE 1 OR 2 VIEWS LEFTBENIGNO VALDIVIA:MD Salma Alvarado MDCLINICAL HISTORY:Intraoperative fluoroscopy.COMPARISON STUDY:None.TECHNIQUE:4 images. 58 seconds of fluoroscopy.FINDINGS: Fluoroscopic documentation of procedure without radiologist present. Pleasesee the operative report.IMPRESSION: Intraoperative fluoroscopy This document has been authenticated by José Ma MD on 04/10/2019 2:39PM. Thank you for referring your patient to [facility]. Name Value Range Interpretation Code Description Data Arianne rce(s) Supporting Document(s) ID Date Data Source [id number] 04/10/2019 08:12:36 PM EST [facility] Tonja rdes - [facility] Name Value Range Interpretation Code Description Data Arianne rce(s) Supporting Document(s) Finger Stick Blood Sugar 95 mg/dL 65-100 [facility] Sarah - [facility] The POC Glucose meter technical range is 30 - 550 mg/dLA glucose less than 30 mg/dLwill chart as CORBY glucose greater than 550 mg/dL will display as HI ID Date Data Source [id number] 04/03/2019 04:39:33 PM EST [facility] Tonja rdes - [facility] BERKLEY LOPEZ LHISTORY SOURCE:Patient and nurse's notes reviewedCHIEF COMPLAINT:Pt reports left lower abdominal pain, vomiting blood tinged fluids, and unableto urinate [id number] last night. Pt reports hx of urinary retention requiring selfcatheterization (she does othave catheters at home). Currently taking Macrobid for UTI.HISTORY OF PRESENT ILLNESS:18-year-old white female complains of left lower abdominal pain with vomitingfrom last night. Patient states has thrown up 9 times bloody vomitus. Denies any diarrheaassociated with it nofever pain in the left lower abdomen is up to a 10 on 10. Patient has ahistory for retentionurine in the past and needed to self catheter herself last year. No dysuriano chest painshortness of breath cough cold or other complaints.REVIEW OF SYSTEMS:All other systems reviewed and are negative.PROBLEM LIST/PAST MEDICAL HISTORY:OngoingAcute constipationAcute dehydrationAnxietyAnxietyDehydrationDepressionDysmenorrheaGERD (gastroesophageal reflux disease)GERD (gastroesophageal reflux disease)HeadacheHematuriaIBS (irritable bowel syndrome)MigrainePanic attackRuptured ovarian cystSeizureSuicide attemptSyncopeThreatened miscarriageUnspecified maternal infectious and parasitic disease complicating ,second trimesterUrinary retentionUrinary retentionUTI (urinary tract infection)HistoricalPROCEDURE/SURGICAL HISTORY:Ts - Tonsillectomy (Ts - Tonsillectomy)excision of cyst near eargastroscopyexcision of cyst from earREMOVAL OF OVARIAN CYST(S) (REMOVAL OF OVARIAN CYST(S))HOME MEDICATIONS:Home Medications (2) ActiveMacrobid 100 mg oral capsule 100 mg = 1 cap(s), PO (oral), bidsertraline 25 mg oral tablet 25 mg = 1 tab(s), PO (oral), qDayALLERGIES:Pineapple (bothers throat)penicillins (rash)SOCIAL HISTORY:AlcoholAlcohol Use None., 03/02/2017Equipment/DevicesAdaptive Equipment Walker, 2 wheeled., 04/24/2018Home/EnvironmentLives With Mother. Living Situation Home independently., 04/24/2018Nutrition/HealthRegular, Caffeine Use Frequent. Caffeine intake amount: 1 cup of coffee/ day.Sleeping concerns:No. Feels highly stressed: No., 04/24/2018Substance UseDrug Use None., 03/02/2017Tobacco/NicotinePatient Smoking Status Former smoker., 2017FAMILY HISTORY:Grandmother: Positive Breast cancer Ovarian CaPHYSICAL EXAM:VITALS AND MEASUREMENTS:T: 36.7 C (Oral) T: 98.1 F (Oral) TMIN: 36.7 C (Oral) TMAX: 98.1F (Oral) HR: 92RR: 18 BP: 122/61 SpO2: 98% BMI: 33.1 Physical examination Vital signs: Reviewed afebrile saturating 90% on room airGeneral: Shows a well-nourished moderately obese white female complaining ofleft lower abdominalpainHEENT: Head atraumatic. Eyes PERRLA extraocular muscles intact. Mucousmembranes are moist.Neck: SuppleChest: Lungs clear to auscultation, equal chest wall movement and good airentry bilaterally.Cardiovascular: Regular rate and rhythm. Extremities no cyanosis clubbing oredema.Abdomen: Soft bowel sounds present moderately severe tenderness left lowerquadrant but Norigidity, guarding or rebound. Neuro: Alert and oriented x3. Nonfocal exam.Musculoskeletal: No swelling tenderness or deformity.Skin: Warm and dry no rash noted.Psychiatric: Patient cooperative and appropriate.LAB RESULTS:CBC LATEST RESULTS HISTORICALRESULTSWBC 04/03/19 8.1 .6 12:55 RBC 04/03/19 4.84 .50 12:55 Hgb 04/03/19 13.3 02/19/1912.4 12:55 Hct 04/03/19 40.0 02/18/1937.2 12:55 MCV 04/03/19 82.7 02/18/1982.6 12:55 MCH 04/03/19 27.4 02/18/1927.5 12:55 MCHC 04/03/19 33.1 02/18/1933.3 12:55 MPV 04/03/19 9.2 198.3 12:55 RDW 04/03/19 14.1 02/18/1913.7 12:55 Platelet 04/03/19 302 12:55 DIFFERENTIAL LATEST RESULTS HISTORICALRESULTSNeutrophils, absolute 04/03/19 4.7 .2 12:55 Lymphocytes, absolute 04/03/19 2.8 .6 12:55 Monocytes, absolute 04/03/19 0.4 .7 12:55 Eosinophils, absolute 04/03/19 0.1 .1 12:55 Basophils, absolute 04/03/19 0.1 .1 12:55 Neutrophils, auto 04/03/19 58.3 02/18/1963.8 12:55 Lymphocytes, auto 04/03/19 34.4 02/18/1923.6 12:55 Monocytes, auto 04/03/19 5.3 02/18/1910.9 12:55 Eosinophils, auto 04/03/19 1.3 .9 12:55 Basophils, auto 04/03/19 0.7 190.8 12:55 MACROSCOPIC LATEST RESULTS HISTORICALRESULTSUA Color 04/03/19 Yellow 11/28/18Yellow 14:01 UA Clarity 04/03/19 Clear 11/28/18Cloudy Abnormal 14:01 UA Specific Henley 04/03/19 1.027 High .029 High 14:01 UA pH 04/03/19 5.0 .0 14:01 UA Protein w/UC 04/03/19 Negative 11/28/18Negative 14:01 UA Glucose 04/03/19 Normal 11/28/18Normal 14:01 UA Ketones 04/03/19 Negative 11/28/18Negative 14:01 UA Bilirubin 04/03/19 Negative 11/28/18Negative 14:01 UA Blood w/UC 04/03/19 Negative 11/28/18Negative 14:01 UA Nitrite w/UC 04/03/19 Negative 11/28/18Negative 14:01 UA Leuk w/uc 04/03/19 2+ Abnormal + Abnormal 14:01 UA Urobilinogen 04/03/19 Normal 11/28/18Normal 14:01 UA Ascorbic Acid 04/03/19 Negative 11/28/18Negative 14:01 MICROSCOPIC LATEST RESULTS HISTORICALRESULTSUA RBC 04/03/19 <2 14:01 UA WBC w/UC 04/03/19 2 11/28/1914- 14:01 UA Squamous Epithelial 04/03/19 <2 11/28/18>50Cells 14:01 UA Mucous 04/03/19 Trace 04/19/18Trace 14:01 ROUTINE CHEMISTRY LATEST RESULTS HISTORICALRESULTSSodium Level 04/03/19 140 12:55 Potassium Level 04/03/19 3.7 193.6 12:55 Chloride 02/0 05/18 112 High High 12:55 CO2 04/03/19 21 Low 02/19/1924 12:55 AGAP 04/03/19 7 12:55 Glucose Level. 04/03/19 148 High 02/18/1991 12:55 BUN 04/03/19 13 02/18/1915 12:55 Creatinine 04/03/19 0.67 190.80 12:55 GFR-AA 04/03/19 >60 02/18/19>60 12:55 GFR-KIEL 04/03/19 >60 02/18/19>60 12:55 Calcium 04/03/19 9.4 198.9 12:55 Albumin Level 04/03/19 4.0 .6 12:55 Total Protein 04/03/19 7.6 .1 12:55 Globulin 04/03/19 3.6 .5 12:55 Alk Phos 04/03/19 89 02/18/1993 1 2:55 AST 04/03/19 13 Low 02/18/1911 Low 12:55 ALT 04/03/19 32 02/18/1947 12:55 Bilirubin Total. 04/03/19 0.3 .4 12:55 Lipase Level 04/03/19 103 02/19/1996 12:55 TESTING LATEST RESULTS HISTORICALRESULTSSerum Qualitative 04/03/19 Negative 02/18/19NegativePregnancy 12:55 IMMUNOLOGY/SEROLOGY LATEST RESULTS HISTORICALRESULTSC-Reactive Protein. 04/03/19 1.0 .3 High 12:55 CBC differential are normal urine is clear negative excepting has 2+ leukocyteesterase but nowhite cells seen. Electrolyt es are grossly normal normal renal functionlipase at 89 normalpregnancy test negative and C-reactive protein is 1 normal.DIAGNOSTIC RESULTS:CT Abd/Pelvis w/o All Contrast: CT Abd/Pelvis w/o All Contrast (04/03/19)CT Abd/Pelvis w/o All Contrast 04/03/19 14:22:17IMPRESSION:No evidence of obstructive uropathy or other acute process. Normal appendix. This document has been authenticated by Kit Lerma MD on 04/03/2019 2:22 PM.Thank you for referring your patient to [facility]. Signed By: Florentin LINARES, Abdi COURSE: Medication Dose Route Frequency Sodium Chloride 0.9% intravenous solutio 1,000 mL IV Infusion Now(NS Bolus) Injection ondansetron (Zofran) 4 mg IV PushInjection Now famotidine (Pepcid) 20 mg IV PushInjection Now Sodium Chloride 0.9% intravenous solutio 1,000 mL IV Infusion Now(NS Bolus) Injection In the ED patient received a bolus of normal saline 2 L wide open with Pepcidand Zofran IV. Left test checked on patient showed normal CBC differential urine is clearhas 2+ leukocyteesterase but no white cells seen and patient does self catheterize herself.Left litesare grossly normal lipase normal at 103 test negative C-reactiveprotein of 1. CT of abdomen and pelvis obtained on patient are normal at appendix and noacute intra-abdominal pathology. Following fluids and medication patient was reevaluatedand states isfeeling much better tolerating by mouth fluids. Most likely acute episodevomiting secondaryto gastritis which has resolved. Patient advised to go on a clear liquid dietfor todaygradually advance to Arnie and regular diet as tolerated. Can dischargepatient home no furtherintervention indicated and patient is accompanied by mother.DIAGNOSIS AND IMPRESSION: DiagnosisClassificat ion Dx Type AdmittingAcute gastritis with abdominal pain and vomiting improvedPLAN:InpatientNo active inpatient medicationsHomeMacrobid 100 mg oral capsule, 100 mg= 1 cap(s), PO (oral), bid, Nottakingsertraline 25 mg oral tablet, 25 mg= 1 tab(s), PO (oral), qDay, NottakingZofran ODT 4 mg oral tablet, disintegrating, 1 to 2 tab(s), SubLINGUAL, q8h,PRNWe'll discharge patient home advised plenty of fluids would dispense a fewZofran for nausea. Clear liquid diet for today and gradually advance as tolerated. PMD in 2-3days return if worsefever increased pain vomiting or other complaints. Patient understandsdischarge instructionsagreeable with planPRE-HYPERTENSION / HYPERTENSION:Has the patient been informed that they may have pre-hypertension orhypertension based on ablood pressure reading in the Emergency Department?Has the provider recommended that the patient call the primary care providerlisted on theirdischarge instructions or a physician of their choice this weekto arrang e a follow-up for further evaluation of possible pre-Hypertension orhypertension?Indicate below YES, NO or N/A:naThis document was authenticated by Fabrice LINARES, Toñito LINARES on 04/03/2019 04:39 PM Name Value Range Interpretation Code Description Data Arianne rce(s) Supporting Document(s) ID Date Data Source [id number] 04/03/2019 02:24:26 PM EST Harnett Tonja florez - [facility] EXAM:Noncontrast CT of the abdomen and p rivera.ORDERING PROVIDER:DAVID CHERRYPCLINICAL HISTORY:Left lower quadrant pain.COMPARISON STUDY:02/18/2019.TECHNIQUE: A routine CT of the abdomen and pelvis was performed without oral orintravenous contrast. Coronal and sagittal reformations were produced.TOTAL DLP: 1269.2 mGy*cm. FINDINGS:BASILAR THORAX: No consolidation, mass, or effusion. Normal cardiac size.LIVER: Normal in size and density. No evidence of parenchymal mass.BILIARY TRACT: No radiopaque gallstones. No evidence of cholecystitis or bileduct obstruction.PANCREAS: Normal for noncontrast technique. No evidence of mass, inflammation,or ductal dilatation.SPLEEN: Normal for noncontrast technique.ADRENAL GLANDS: Unremarkable. No mass.URINARY TRACT: Normal size of both kidneys. No evidence of renal mass. Norenal, ureteral, or bladder stones. No hydronephrosis or hydroureter.Collapsed bladder without obvious wall thickening or mass.GASTROINTESTINAL TRACT: Unremarkable appearance of the stomach. No evidence ofbowel obstruction. No wall thickening or mass appreciated. Normal appearanceof the appendix.UTERUS AND ADNEXA: Retroverted uterus. No adnexal mass.PERITONEAL SPACE: No free air, free fluid, mass or adenopathy.RETROPERITONEAL SPACE: No aortic aneurysm. No retroperitoneal adenopathy ormass.BODY WALL: No hernia or mass.MUSCULOSKELETAL: No acute fracture or suspicious osseous lesion.IMPRESSION: No evidence of obstructive uropathy or other acute process.Normal appendix.This document has been authenticated by Kit Lerma MD on 04/03/2019 2:22 PM. Thank you for referring your patient to [facility]. Name Value Range Interpretation Code Description Data Arianne rce(s) Supporting Document(s) ID Date Data Source [id number] 04/05/2019 09:25:49 AM EST Harnett Tonja florez - [facility] Name BERKLEY LOPEZ hdate 2000Sex FEMALE Age 18 yearsPatient Acct. No. [id number] ER OLLAttending ER Physician Fabrice LINARES, [facility] Care Physician DINORAH DOOLEYMicrobiologyS = Susceptible I = Intermediate R = Resistant N/A = Not U = UninterpretableApplicableProcedure: Culture Urine [f1] U Cath Body Site:Collected Date/Time: 04/03/2019 14:01 EST Received Date/Time: 04/03/2019 15:27 ESTStart Date/Time: 04/03/2019 15:27 EST Free Text Source:Ordering Physician: Jennifer Dukes FNPFINAL REPORTSFinal Report [] Verified Date/Time: 04/05/2019 09:25 EST10,000 to 50,000 cfu/ml Multiple Species Present, No Predominating PathogenPerforming Locationsf1: This test was performed at:[facility], [address] [place] [address], [facility]- Name Value Range Interpretation Code Description Data Arianne rce(s) Supporting Document(s) ID Date Data Source [id number] 04/03/2019 02:14:00 PM EST Harnett Tonja rdes - [facility] Name Value Range Interpretation Code Description Data Arianne rce(s) Supporting Document(s) UA Squamous Epithelial Cells <2 /HPF 0-5 Harnett Sarah - [facility] Added as per Lab reflex policy GL_UA_MIC RO_AV_R_UC UA WBC w/UC 2 /HPF 0-5 Harnett Tonja rdes - [facility] UA RBC <2 /HPF 0-2 Harnett Lour lorraine - [facility] UA Mucous Absent Harnett Lour lorraine - [facility] ID Date Data Source [id number] 04/03/2019 02:07:51 PM EST Harnett Tonja rdes - [facility] Name Value Range Interpretation Code Description Data Arianne rce(s) Supporting Document(s) UA Color Yellow Harnett Lour lorraine - [facility] UA Clarity Clear Harnett Lour lorraine - [facility] UA pH 5.0 5.0-8.0 Harnett Lour lorraine - [facility] UA Specific Henley 1.027 1.005-1.025 Above high normal Harnett Sarah - [facility] UA Leuk w/uc Negative AB Harnett Lo urdes - [facility] UA Nitrite w/UC Negative Harnett Sarah - [facility] UA Blood w/UC Negative Harnett L ourdes - [facility] UA Bilirubin Negative Harnett Lo urdes - [facility] If the dipstick bilirubin results are 'P resumptive Positive' the result will be confirmed with an Ictotest due to possible interference. UA Urobilinogen Normal Harnett Sarah - [facility] UA Glucose Normal Harnett Lour lorraine - [facility] UA Ketones Negative Harnett Lour lorraine - [facility] UA Protein w/UC Negative Harnett Sarah - [facility] UA Ascorbic Acid Negative [facility] - [facility] The presence of ascorbic acid may interf ere with the detection of blood, glucose, nitrite and bilirubin on the biochemical strip. Detectable limits of >20mg/dL will reflex a microscopic exam. ID Date Data Source [id number] 04/03/2019 01:48:27 PM EST Harnett Tonja rdes - [facility] BERKLEY LOPEZ LChief Complaint: Patie nt states that for the past 24 hours, she has beenexperiencing nauseaand vomiting with left lower abdominal pain. Patient states that she has ahistory of urinaryretention requiring self catheterization but does not have any supplies andhas not urinatedsince 5:30 pm last night. Patient states she is currently being treated for aurinary tractinfection. Vital Signs:Temperature 98.1 (12:18)Systolic Blood Pressure 129 (12:18)Diastolic Blood Pressure 87 (12:18)Pulse 88SpO2 98 (12:18)Respiratory Rate 18 (12:18) Physical Exam:General: Awake, alert and oriented. Sitting comfortably in chair in no acutedistressCardiac: Regular heart rate and rhythm. S1 and S2 normalRespiratory: Lung sounds clear and equal in all whitfield. Easy and unlaboredrespirations.Abdomen: Left lower abdominal tenderness with palpation. No distension orguarding.Skin: No lesions or rashes. Plan:UA, CBC, CMP, CRP, Preg, CT abd ED SUPERVISED APC attestationBased on the medical record the care appears appropriate.This document was authenticated by Jennifer Dukes FNP DEPARTMENT OF SOCIOLOGY CHAIR on 04/03/201912:29 PMSent for Co-authentication by Nilton Willson DO DO Co-authenticatedon 04/03/2019 01:48 PM Name Value Range Interpretation Code Description Data Arianne rce(s) Supporting Document(s) ID Date Data Source [id number] 04/03/2019 03:16:39 PM EST Harnett Tonja rdes - [facility] Name Value Range Interpretation Code Description Data Arianne rce(s) Supporting Document(s) Lipase Level 103 unit/L 73-393 Harnett Lo urdes - [facility] ID Date Data Source [id number] 04/03/2019 03:16:41 PM EST Harnett Tonja rdes - [facility] Name Value Range Interpretation Code Description Data Arianne rce(s) Supporting Document(s) GFR-KIEL >60 mL/min/1.73m2 >=60 [facility] eGFR added on by Discern Expert.* GFR-NA A has been calculated for Non- Americans, GFR-AA has been calculated for Americans. They are based on the standardized IDMS creatinine value and do not include the patient weight. If the patient's weight is not withThis estimation applies to patients with stable renal function only.An average GFR of greater than or equal to 60 mL/min/1.73 square meters is suggestive of normal kidney function.An average GFR for 3 months or more of 30-59 is suggestive of stage 3 kidney disease.An average GFR for 3 months or more of 15-29 is suggestive of stage 4 kidney disease.An average GFR for 3 months or more of less than 15 is suggestive of stage 5 kidney disease. GFR-AA >60 mL/min/1.73m2 >=60 [facility] - [facility] ID Date Data Source [id number] 04/03/2019 03:16:39 PM EST Harnett Tonja rdes - [facility], [facility] Name Value Range Interpretation Code Description Data Arianne rce(s) Supporting Document(s) C-Reactive Protein. 1.0 mg/dL <=1.0 [facility] dar[facility] Sarah - [facility] ID Date Data Source [id number] 04/03/2019 03:16:39 PM EST Harnett Tonja rdes - [facility] Name Value Range Interpretation Code Description Data Arianne rce(s) Supporting Document(s) Sodium Level 140 mmol/L 136-144 Harnett Lo urdes - [facility] Potassium Level 3.7 mmol/L 3.6-5.1 Harnett Sarah - [facility] Chloride 112 mmol/L 98-110 Above high normal [facility] CO2 21 mmol/L 22-32 Below low normal [facility] - [facility] AGAP 7 mEq/L 4-14 Harnett Lour lorraine - [facility] Glucose Level. 148 mg/dL 65-100 Above high normal [facility] Sarah - [facility] If patient is taking either of these dominguez gs, there has been a bias identified:Sulfasalazine may cause falsely decreased resultsSulfaspyridine may cause falsely increased results BUN 13 mg/dL 8-23 Harnett Lour lorraine - [facility] Creatinine 0.67 mg/dL 0.40-1.10 Harnett Lour lorraine - [facility] Calcium 9.4 mg/dL 8.5-10.5 Harnett Lour lorraine - [facility] Total Protein 7.6 gm/dL 6.4-8.2 Harnett L ourdes - [facility] Globulin 3.6 gm/dL 1.5-3.8 Harnett Lour lorraine - [facility] Albumin Level 4.0 gm/dL 3.3-4.8 Harnett L ourdes - [facility] Bilirubin Total. 0.3 mg/dL 0.2-1.0 [facility] - [facility] AST 13 unit/L 15-41 Below low normal [facility] - [facility] If patient is taking either of these dominguez gs, there has been a bias identified:Sulfasalazine may cause falsely decreased resultsSulfaspyridine may cause falsely decreased results Alk Phos 89 unit/L 45-117 Harnett Lozenon lorraine - [facility] ALT 32 unit/L 14-54 Harnett Lour lorraine - [facility] If patient is taking either of these dominguez gs, there has been a bias identified:Sulfasalazine may cause falsely decreased resultsSulfaspyridine may cause falsely decreased results ID Date Data Source [id number] 04/03/2019 01:23:25 PM EST Harnett Tonja rdes - [facility] Name Value Range Interpretation Code Description Data Arianne rce(s) Supporting Document(s) Serum Qualitative Negative Harnett Sarah - [facility] ID Date Data Source [id number] 04/03/2019 01:03:11 PM EST Harnett Tonja rdes - [facility] Name Value Range Interpretation Code Description Data Arianne rce(s) Supporting Document(s) WBC 8.1 K/uL 4.0-10.0 Harnett Lour lorraine - [facility] RBC 4.84 Million/mcL 4.20-5.40 [facility] - [facility] Hgb 13.3 gm/dL 12.0-16.0 Harnett Lour lorraine - [facility] Hct 40.0 % 36.0-47.0 Harnett Lour lorraine - [facility] MCV 82.7 fL 82.0-98.0 Harnett Lour lorraine - [facility] MCH 27.4 pg 26.0-33.0 Harnett Lour lorraine - [facility] MCHC 33.1 gm/dL 32.0-36.0 Harnett Lour lorraine - [facility] RDW 14.1 % 11.4-14.4 Harnett Lour lorraine - [facility] Platelet 302 K/mcL 150-400 Harnett Lour lorraine - [facility] MPV 9.2 fL 7.4-10.4 Harnett Lour lorraine - [facility] ID Date Data Source [id number] 04/03/2019 01:03:11 PM EST Harnett Tonja rdes - [facility] Name Value Range Interpretation Code Description Data Arianne rce(s) Supporting Document(s) Neutrophils, auto 58.3 % 40.0-80.0 [facility] Neutrophils, absolute 4.7 K/mcL 1.5-7.7 [facility] Sarah - [facility] Lymphocytes, auto 34.4 % 15.0-40.0 [facility] - [facility] Lymphocytes, absolute 2.8 K/mcL 1.5-4.0 Asc [facility] Sarah - [facility] Monocytes, auto 5.3 % 0.0-12.0 Harnett Sarah - [facility] Monocytes, absolute 0.4 K/mcL 0.2-1.0 Ascen darren Sarah - [facility] Eosinophils, auto 1.3 % 0.0-5.0 [facility] - [facility] Eosinophils, absolute 0.1 K/mcL 0.0-0.3 [facility] Sarah - [facility] Basophils, auto 0.7 % 0.0-2.0 Harnett Sarah - [facility] Basophils, absolute 0.1 K/mcL 0.0-0.1 [facility] Sarah - [facility] ID Date Data Source [id number] 03/30/2019 04:42:08 PM EST Harnett Tonja rdes - [facility] BERKLEY LOPEZ LPATIENT IDENTIFICATION :[facility] BERKLEY [facility]OPEZ LMedical Record Number: [id number] Of : 2000CHIEF COMPLAINT:rm 5 has been vomiting for 5 days no other symptoms she hasn't gone to get herdepo shot in 3months possibility of pregnancyHISTORY OF PRESENT ILLNESS:Patient presents with complaints of vomiting for the last 4-5 days. Shestates she typicallyvomits in the morning and and and occasionally in the afternoon. She has notfound any triggersfor this. She additionally reports some central upper abdominal pain. Shedenies fever,dysuria, incontinence, urinary frequency or urgency, vaginal discharge. Shestates her bowelmovements have been normal and regular pattern. She denies blood in her stoolor in her urine.She is sexually active and not using any form of control. Her last deposhot was 3 monthsago. She does report history of IBS. Last menstrual period is unknown as shehas abnormalmenses.requesting work note.Otherwise ana rosa espinoza denies recent illness, respiratory symptoms, fever.REVIEW OF SYSTEMS:as per hpiPROBLEM LIST/PAST MEDICAL HISTORY:OngoingAcute constipationAcute dehydrationAnxietyAnxietyDehydrationDepressionDysmenorrheaGERD (gastroesophageal reflux disease)GERD (gastroesophageal reflux disease)HeadacheHematuriaIBS (irritable bowel syndrome)MigrainePanic attackRuptured ovarian cystSeizureSuicide attemptSyncopeThreatened miscarriageUnspecified maternal infectious and parasitic disease complicating ,second trimesterUrinary retentionUrinary retentionUTI (urinary tract infection)HistoricalPROCED URE/SURGICAL HISTORY:Ts - Tonsillectomy (Ts - Tonsillectomy)excision of cyst near eargastroscopyexcision of cyst from earREMOVAL OF OVARIAN CYST(S) (REMOVAL OF OVARIAN CYST(S))SOCIAL HISTORY:AlcoholAlcohol Use None., 03/02/2017Equipment/DevicesAdaptive Equipment Walker, 2 wheeled., 04/24/2018Home/EnvironmentLives With Mother. Living Situation Home independently., 04/24/2018Nutrition/HealthRegular, Caffeine Use Frequent. Caffeine intake amount: 1 cup of coffee/ day.Sleeping concerns:No. Feels highly stressed: No., 04/24/2018Substance UseDrug Use None., 03/02/2017Tobacco/NicotinePatient Smoking Status Former smoker., 03/02/2017FAMILY HISTORY:Grandmother: Positive Breast cancer Ovarian CaALLERGIES:Pineapple (bothers throat)penicillins (rash)Home Medications:Home Medications (2) Activenitrofurantoin (Macrobid 100 mg oral capsule) 100 mg = 1 cap(s), PO (oral), bidsertraline (sertraline 25 mg oral tablet) 25 mg = 1 tab(s), PO (oral), qDay,Not takingPHYSICAL EXAM:VITALS:T: 36.7 C (Tympanic) T: 98.1 F (Tympanic) HR: 97 RR: 20 BP: 140/82 SpO2: 98%HT: 167.6 cm WT: 109.5 kg BMI: 39 General: The patient is a well developed, well nourished female in no acutedistress. Skin warmand dry. The patient is sitting comfortably on the stretcher.Head: Normocephalic, atraumatic.HEENT: Pupils round, equal and react to light. Mucous membranes are moist.Neck: no JVD. Trachea mid-line.Lungs: Clear bilaterally with no rales, rhonchi, or wheeze.Heart: Regular rhythm at normal rate is present without murmur, rub, or gallop.Abdomen:bilat upper abdominal quadrant tenderness to palpation. no rebound orguarding. abdrounded, soft, with positive BS. Percussion is normal in all quadrants. No cva tenderness.Neurological: Alert and Oriented X3. No focal deficits noted.LAB RESULTS:URINALYSISBilirubin Urine Dipstick POC Clinic: Negative (03/26/19)Blood Urine Dipstick POC Clinic: 250 (03/26/19)Glucose Urine Dipstick POC: Negative (03/26/19)Ketones Dipstick POC Clinic: Negative (03/26/19)Leukocyte Urine Dipstick POC Clinic: 2+ Moderate (03/26/19)pH Urine Dipstick POC Clinic: 5.0 (03/26/19)Protein Urine Dipstick POC Clinic: Negative (03/26/19)Specific Henley Dipstick POC Clinic: 1.030 (03/26/19)Urobilinogen Urine Dipstick POC Clinic: Normal (03/26/19)POINT OF CARENitrite Urine Dipstick POC: Positive (03/26/19)Urine Appearance Urine Dipstick POC: Clear (03/26/19)Urine Beta HCG POC Clinic: Negative (03/26/19)Urine Color Urine Dipstick POC: Yellow (03/26/19)PATHOLOGY RESULTS:Pathology Results No qualifying data available.DIAGNOSTIC RESULTS:No qualifying data available.ASSESSMENT AND PLAN:1. Acute UTI Urine dip is abnormal in clinic today. Urine sent to lab for culture andsensitivitytesting and we will change antibiotic if indicated. Start macrobid. Pleasetake med withfood and also eat a yogurt a day or take a probiotic to maintain intestinalbacterial balance. Patient should increase fluid intake. If patient worsens, starts a fever,new back pain,vomiting then they should seek emergent care at the ER. Follow up with PCP in7-10 days.negative urine testing in clinic. Discussed with the patient that as she has irregular menses and cannotpinpoint last menstrualcycle dates and not attempting to prevent with any means that it ispossible we gota false negative on her urine test and she should follow-up with herprimary careprovider if symptoms persist. She verbalized good understanding. *This note was completed using Inf[employer] System. Reasonable attemptshave been made tocorrect errors. Please excuse any typographical errors. For clarifications,please contact ouroffice. Ordered:nitrofurantoin, 100 mg = 1 cap(s), PO (oral), bid, # 10 cap(s), Maintenance,Pharmacy: [facility]/pharmacy #[id number], 1 cap(s) PO (oral) bid,x5 da y(s)Culture Urine 2. Vomiting Medications Affected this Encounter: Medication Changes/Renewals This Visit Status nitrofurantoin 100 mg, 1 cap(s), PO (oral), bid, for Ordered 5 day(s), 10 cap(s) diclofenac 75 mg, 1 tab(s), PO (oral), bid, 20 Discontinued tab(s) Added Patient Education BLADDER INFECTION, Female (Adult) Follow-Up Appointments With: Follow up with primary care providerWhen: 5 to 7 daysComment: Urine dip is abnormal in clinic today. Urine sent to lab forculture and sensitivitytesting and we will change antibiotic if indicated. Start macrobid. Pleasetake med withfood and also eat a yogurt a day or take a probiotic to maintain intestinalbacterial balance. Patient should increase fluid intake. If patient worsens, starts a fever,new back pain,vomiting then they should seek emergent care at the ER. Follow up with PCP in7-10 days.negativeurine testing in clinic. This document was authenticated by Zee Gonzalez FNP FNP on 0 03/30/201904:42 PM Name Value Range Interpretation Code Description Data Arianne rce(s) Supporting Document(s) ID Date Data Source [id number] 03/28/2019 07:35:16 AM EST Harnett Tonja florez - [facility] Name BERKLEY LOPEZ hdate 2000Sex FEMALE Age 18 yearsPatient Acct. No. [id number] LCB OLLAttending ER Physician Zee Gonzalez FNPPrilawrence medical center Care Physician DINORAH DOOLEYMicrobiologyS = Susceptible I = Intermediate R = Resistant N/A = Not U = UninterpretableApplicableProcedure: Culture Urine [f1] U CleanCatch Body Site:Collected Date/Time: 03/26/2019 18:47 EST Received Date/Time: 03/26/2019 18:47 ESTStart Date/Time: 03/26/2019 18:48 EST Free Text Source:Ordering Physician: Zee Gonzalez FNPFINAL REPORTSFinal Report [] Verified Date/Time: 03/28/2019 07:35 EST10,000 to 50,000 cfu/ml Multiple Species Present, No Predominating PathogenPerforming Locationsf1: This test was performed at:[facility], [address] [place] [address], [facility]- Name Value Range Interpretation Code Description Data Airanne rce(s) Supporting Document(s) ID Date Data Source [id number] 02/18/2019 05:02:53 PM EST Harnett Tonja florez - [facility] S[facility]:History is from patient I reviewed the nurse's notes and agree except forwhere as noted below.CHIEF COMPLAINT:Abdominal painHISTORY OF PRESENT ILLNESS:18-year-old woman here with complaint of abdominal pain lower abdomen constantmoderate severity,question sharp. No nausea vomiting. States that she is on Depo-Proverahowever she has hadvaginal bleeding for the last several days. No burning frequency urgency.History of C- section.REVIEW OF SYSTEMS:Review of Systems is as per HPI. Remainder of systems reviewed and negative.PROBLEM LIST/PAST MEDICAL HISTORY:OngoingAcute constipationAcute dehydrationAnxietyAnxietyDehydrationDepressionGERD (gastroesophageal reflux disease)GERD (gastroesophageal reflux disease)HeadacheHematuriaIBS (irritable bowel syndrome)MigrainePanic attackRuptured ovarian cystSeizureSuicide attemptSyncopeThreatened miscarriageUnspecified maternal infectious and parasitic disease complicating ,second trimesterUrinary retentionUrinary retentionUTI (urinary tract infection)HistoricalPROCEDURE/SURGICAL HISTORY:Ts - Tonsillectomy (Ts - Tonsillectomy)excision of cyst near eargastroscopyexcision of cyst from earREMOVAL OF OVARIAN CYST(S) (REMOVAL OF OVARIAN CYST(S))HOME MEDICATIONS:Home Medications (4) ActiveDepo-Provera Contraceptive , IM, OnceMiraLax 17 g = 1 packet(s), PO (oral), PRNPepcid 20 mg oral tablet 20 mg = 1 tab(s), PO (oral), at bedtimesertraline 25 mg oral tablet 25 mg = 1 tab(s), PO (oral), qDayALLERGIES:Pineapple (bothers throat)penicillins (rash)SOCIAL HISTORY:AlcoholAlcohol Use None., 03/02/2017Equipment/DevicesAdaptive Equipment Walker, 2 wheeled., 04/24/2018Home/EnvironmentLives With Mother. Living Situation Home independently., 04/24/2018Nutrition/HealthRegular, Caffeine Use Frequent. Caffeine intake amount: 1 cup of coffee/ day.Sleeping concerns:No. Feels highly stressed: No., 04/24/2018Substance UseDrug Use None., 03/02/2017Tobacco/NicotinePatient Smoking Status Former smoker., 03/02/2017FAMILY HISTORY:Grandmother: Positive Breast cancer Ovarian CaPHYSICAL EXAM:VITALS AND MEASUREMENTS:T: 36.6 C (Oral) T: 97.9 F (Oral) TMIN: 36.6 C (Oral) TMAX: 97.9F (Oral) HR: 111RR: 18 BP: 121/80 SpO2: 96% PHYSICAL EXAMINATION:VITAL SIGNS: Reviewed. GENERAL: Well-developed well-nourished woman who appears her stated age. Zkblms-af-[id number].HEAD: Normocephalic/atraumatic.EYES: Pupils equal round reactive to light and accommodation..EARS: No fluid from ears or noseMOUTH: Moist noninjectedNECK: Soft supple no JVD HJR.CHEST: No tenderness or crepitus symmetric expansion with respiration.LUNGS clear to auscultation percussion without wheezes or cracklesCARDIAC: Regular rate and rhythm. S1 and S2, without murmurs, gallops, or rubs.EXTREMITIES no clubbing cyanosis or edemaVASCULAR: . Peripheral pulses normal and equal in all extremities.ABDOMEN: Soft, without detectable tenderness. No sign of distention. Norebound or guarding, andno masses palpated. Bowel Sounds normal.MUSCULOSKELETAL: remainder of extremities grossly normal.NEUROLOGIC EXAM: Alert and oriented x 3. No focal sensory or strengthdeficits. Speech normal.Follows commands.PSYCHIATRIC: Appropriate affect good insight and judgment.SKIN: Warm dry no icterus.HEME LYMPH AND IMMUNE: no petechiae adenopathy ecchymosis LAB RESULTS:CBC LATEST RESULTS HISTORICALRESULTSWBC 02/18/19 6.6 .4 10:13 RBC 02/18/19 4.50 .96 10:13 Hgb 02/18/19 12.4 12/02/1912.6 10:13 Hct 02/18/19 37.2 12/03/1939.6 10:13 MCV 02/18/19 82.6 12/02/1980.9 Low 10:13 MCH 02/18/19 27.5 12/02/1926.4 10:13 MCHC 02/18/19 33.3 12/02/1932.5 10:13 MPV 02/18/19 8.3 .7 10:13 RDW 02/18/19 13.7 12/02/1912.6 10:13 Platelet 02/18/19 272 10:13 DIFFERENTIAL LATEST RESULTS HISTORICALRESULTSNeutrophils, absolute 02/18/19 4.2 .2 10:13 Lymphocytes, absolute 02/18/19 1.6 .2 10:13 Monocytes, absolute 02/18/19 0.7 .8 10:13 Eosinophils, absolute 02/18/19 0.1 .1 10:13 Basophils, absolute 02/18/19 0.1 .1 10:13 Neutrophils, auto 02/18/19 63.8 12/02/1954.7 10:13 Lymphocytes, auto 02/18/19 23.6 12/02/1932.7 10:13 Monocytes, auto 02/18/19 10.9 .1 10:13 Eosinophils, auto 02/18/19 0.9 .3 10:13 Basophils, auto 02/18/19 0.8 .2 10:13 COAGULATION LATEST RESULTS HISTORICALRESULTSAPTT 02/18/19 27 11/28/1925 10:38 ROUTINE CHEMISTRY LATEST RESULTS HISTORICALRESULTSSodium Level 02/18/19 140 10/04/13429 10:13 Potassium Level 02/18/19 3.6 194.0 10:13 Chloride 02/18/19 112 High 10:13 CO2 02/18/19 24 12/03/1923 10:13 AGAP 02/18/19 4 10:13 Glucose Level. 02/18/19 91 High 10:13 BUN 02/18/19 15 12/02/1913 10:13 Creatinine 02/18/19 0.80 .92 10:13 GFR-AA 02/18/19 >60 12/02/18>60 10:13 GFR-KIEL 02/18/19 >60 12/02/18>60 10:13 Calcium 02/18/19 8.9 199.2 10:13 Albumin Level 02/18/19 3.6 .9 10:13 Total Protein 02/18/19 7.1 197.8 10:13 Globulin 02/18/19 3.5 .9 High 10:13 Alk Phos 02/18/19 93 12/02/1989 10:13 AST 02/18/19 11 Low 12/03/1911 Low 10:13 ALT 02/18/19 47 1 10:13 Bilirubin Total. 02/18/19 0.4 190.2 10:13 Amylase Level 02/18/19 28 10:13 Lipase Level 02/18/19 96 10:13 TESTING LATEST RESULTS HISTORICALRESULTSSerum Qualitative 02/18/19 Negative 12/02/18NegativePregnancy 10:13 IMMUNOLOGY/SEROLOGY LATEST RESULTS HISTORICALRESULTSC-Reactive Protein. 02/18/19 3.3 High .0 10:13 DIAGNOSTIC RESULTS:CT Abd/Pelvis w/IV Only Contrast:CT Abd/Pelvis w/IV Only Contrast(02/18/19)US Pelvis Transvaginal Only: US PelvisTransvaginal Only (02/18/19) Reason For ExamAbdominal pain REPORTEXAM:CT ABD/PELVIS W/IV ONLY CONTRAST ORDERING PROVIDER:MD Atilio Fuller CLINICAL HISTORY:Vomiting. Blood per rectum. COMPARISON:None. TECHNIQUE: CT abdomen and pelvis was performed from the diaphragm through the symphysispubis after 80 ml of intravenous Omnipaque contrast and reformatted in thesagittal and coronal planes. Total DLP is 1087 mGy-cm. FINDINGS: BASILAR CHEST: No consolidation, nodule or effusion. LIVER: No abnormal focal enhancement or mass effect. The longitudinal axismeasures approximately 19 cm, which is enlarged. BILIARY TRACT: The gallbladder is physiologically distended and unremarkable. No intra or extrahepatic biliary ductal dilation. SPLEEN: The spleen is enlarged, measuring 14 cm in the transverse axis. Nofocalmass identified. PANCREAS: No mass or inflammatory process. Normal pancreatic duct. ADRENAL GLANDS: Unremarkable. No mass. URINARY SYSTEM: The kidneys are normal in size. There are no calculi. Nohydronephrosis or mass noted. The ureters are well visualized andunremarkable .Bladder is normal. No evidence of wall thickening, mass, calculi or debris. GI TRACT: Suboptimally visualized in the absence of oral contrast. There is nomass or dilation. No mural thickening seen. There is no hernia. No diverticulaseen. The appendix is visualized and unremarkable. REPRODUCTIVE SYSTEM: Moderate free pelvic fluid is seen. PERITONEAL SPACE: No free air. No additional free fluid collections. Noadenopathy seen. No evidence of a mass. RETROPERITONEAL SPACE: No adenopathy seen. No evidence of a mass. There is noaneurysm or dissection of the aorta. BONES AND EXTRA-ABDOMINAL SOFT TISSUES: There is no inguinal adenopathy orhernia. The osseous structures are within normal limits. IMPRESSION: Mild hepatosplenomegaly.Moderate free pelvic fluid.Otherwise unremarkable exam. This document has been authenticated by Wilfredo Albright MD on 02/18/201912:29PM. Thank you for referring your patient to [facility]. Signature Line Final Dictated: 02/18/2019 12:25 pm WILFREDO ALBRIGHT Signed (Electronic Signature): 02/18/2019 12:29 pm PACS Reference PointerThis document has an image Reason For ExamFOR OVARIAN TORSION REPORTEXAM: US PELVIS TRANSVAGINAL ONLY ORDERING PROVIDER:MD Atilio Fuller CLINICAL HISTORY:Vomiting. Blood per rectum. COMPARISON STUDY: Pelvic ultrasound on 01/08/2018 TECHNIQUE: Transvaginal real- time 2-dimensional grayscale, color Doppler with spectralanalysis of the arterial and venous blood supply was performed of each ovary. Ultrasound evaluation of the uterus was also obtained. FINDINGS: UTERUS: Retroverted and normal in size measuring 6.7 x 3.7 x 5.3 cm. Myometrialechotexture is homogeneous. No fibroids are noted. ENDOMETRIAL ECHO: Measures 1 mm and is homogeneous without mass, cyst orfluid. RIGHT OVARY: 4.4 x 2.3 x 2.6 cm. There is no solid mass. No suspicious cystidentified. Normal color and spectral waveforms are seen within the arterialandvenous blood supply of the right ovary. LEFT OVARY: 4.9 x 2.2 x 2.5 cm. There is no solid mass. No suspicious cystidentified. Normal color and spectral waveforms are seen within the arterialandvenous blood supply of the left ovary. ADNEXA: No masses. No free fluid. IMPRESSION: Retroverted uterus is noted. Otherwise unremarkable exam. This document has been authenticated by Wilfredo Albright MD on 02/18/201911:06AM. Thank you for referring your patient to [facility]. Signature Line Final Dictated: 02/18/2019 11:05 am WILFREDO ALBRIGHT Signed (Electronic Signature): 02/18/2019 11:06 am PACS Reference PointerThis document has an image ED COURSE: Medication Dose Route Frequency ketorolac (Toradol) 30 mg IV PushInjection Now famotidine (Pepcid) 40 mg IV PushInjection Now Sodium Chloride 0.9% intravenous solutio 1,000 mL IV Infusion Now(NS Bolus) Injection I rechecked the patient who is resting comfortably. On re-exam the patient issymptomaticallygreatly improved. I have discussed the results of the labs/radiology as wellas the diagnosisat great length. Discussed proper home care and instructions to take the Rx asdirected. Patientunderstands to follow up with their PCP in 1-2 days. Return to ER precautionswere discussed forany new or worsening symptoms. Patient is comfortable with decision to gohome. All questionsanswered.DIAGNOSIS AND IMPRESSION: DiagnosisClassification Dx Type Admitting Dysmenorrhea Medical DischargePLAN:Discharge to home in stable conditionFollow up with PCP in 1 to 3 days.Return to the Emergency Department if there is a change in the nature orcharacter of yoursymptoms.Any respiratory well-developed well- nourishedThis document was authenticated by Jonny LINARES, Atilio Crump MD on 02/18/201905:02 PM Name Value Range Interpretation Code Description Data Arianne rce(s) Supporting Document(s) ID Date Data Source [id number] 02/18/2019 12:31:16 PM EST Harnett Tonja florez - [facility], [facility] EXAM:CT ABD/PELVIS W/IV ONLY CONTRAST OR DERING PROVIDER:MD Atilio FullerCLINICAL HISTORY:Vomiting. Blood per rectum.COMPARISON:None.TECHNIQUE: CT abdomen and pelvis was performed from the diaphragm through the symphysispubis after 80 ml of intravenous Omnipaque contrast and reformatted in thesagittal and coronal planes. Total DLP is 1087 mGy-cm. FINDINGS:BASILAR CHEST: No consolidation, nodule or effusion. LIVER: No abnormal focal enhancement or mass effect. The longitudinal axismeasures approximately 19 cm, which is enlarged.BILIARY TRACT: The gallbladder is physiologically distended and unrem arkable. No intra or extrahepatic biliary ductal dilation.SPLEEN: The spleen is enlarged, measuring 14 cm in the transverse axis. Nofocal mass identified.PANCREAS: No mass or inflammatory process. Normal pancreatic duct. ADRENAL GLANDS: Unremarkable. No mass. URINARY SYSTEM: The kidneys are normal in size. There are no calculi. Nohydronephrosis or mass noted. The ureters are well visualized andunremarkable. Bladder is normal. No evidence of wall thickening, mass,calculi or debris.GI TRACT: Suboptimally visualized in the absence of oral contrast. There is nomass or dilation. No mural thickening seen. There is no hernia. Nodiverticula seen. The appendix is visualized and unremarkable.REPRODUCTIVE SYSTEM: Moderate free pelvic fluid is seen.PERITONEAL SPACE: No free air. No additional free fluid collections. Noadenopathy seen. No evidence of a mass.RETROPERITONEAL SPACE: No adenopathy seen. No evidence of a mass. There is noaneurysm or dissection of the aorta.BONES AND EXTRA-ABDOMINAL SOFT TISSUES: There is no inguinal adenopathy orhernia. The osseous structures are within normal limits. IMPRESSION: Mild hepatosplenomegaly.Moderate free pelvic fluid.Otherwise unremarkable exam. This document has been authenticated by Wilfredo Albright MD on 02/18/201912:29 PM. Thank you for referring your patient to [facility]. Name Value Range Interpretation Code Description Data Arianne rce(s) Supporting Document(s) ID Date Data Source [id number] 02/18/2019 11:09:02 AM EST Harnett Tonja rddallin - [facility] EXAM: US PELVIS TRANSVAGINAL ONLY ORDERI NG PROVIDER:MD Atilio FullerCLINICAL HISTORY:Vomiting. Blood per rectum.COMPARISON STUDY: Pelvic ultrasound on 01/08/2018TECHNIQUE: Transvaginal real-time 2-dimensional grayscale, color Doppler with spectralanalysis of the arterial and venous blood supply was performed of each ovary.Ultrasound evaluation of the uterus was also obtained. FINDINGS:UTERUS: Retroverted and normal in size measuring 6.7 x 3.7 x 5.3 cm.Myometrial echotexture is homogeneous. No fibroids are noted.ENDOMETRIAL ECHO: Measures 1 mm and is homogeneous without mass, cyst orfluid.RIGHT OVARY: 4.4 x 2.3 x 2.6 cm. There is no solid mass. No suspicious cystidentified. Normal color and spectral waveforms are seen within the arterialand venous blood supply of the right ovary.LEFT OVARY: 4.9 x 2.2 x 2.5 cm. There is no solid mass. No suspicious cystidentified. Normal color and spectral waveforms are seen within the arterialand venous blood supply of the left ovary.ADNEXA: No masses. No free fluid. IMPRESSION: Retroverted uterus is noted. Otherwise unremarkable exam. This document has been authenticated by Wilfredo Albright MD on 02/18/201911:06 AM. Thank you for referring your patient to [facility]. Name Value Range Interpretation Code Description Data Arianne rce(s) Supporting Document(s) ID Date Data Source [id number] 02/18/2019 10:47:32 AM EST Harnett Tonja rddallin - [facility] Name Value Range Interpretation Code Description Data Arianne rce(s) Supporting Document(s) APTT 27 second(s) 24-33 Harnett Christen urlorraine - [facility] Suggested therapeutic range for unfracti onated Heparin is 2 to 2.5 times the mean normal value. Levels below 60 seconds may indicate insufficient anticoagulant.For therapeutic monitoring of various direct thrombin inhibitors, please refer to Micromedex or LexiComp on the [facility] Intranet. ID Date Data Source [id number] 02/18/2019 11:07:49 AM EST Harnett Tonja rdes - [facility] Name Value Range Interpretation Code Description Data Arianne rce(s) Supporting Document(s) Serum Qualitative Negative Harnett Sarah - [facility] ID Date Data Source [id number] 02/18/2019 10:46:47 AM EST Harnett Tonja rdes - [facility] Name Value Range Interpretation Code Description Data Arianne rce(s) Supporting Document(s) Lipase Level 96 unit/L 73-393 Harnett Christen holliday - [facility] ID Date Data Source [id number] 02/18/2019 10:46:47 AM EST Harnett Tonja rdes - [facility] Name Value Range Interpretation Code Description Data Arianne rce(s) Supporting Document(s) C-Reactive Protein. 3.3 mg/dL <=1.0 Above high normal Harnett [facility] - [facility] ID Date Data Source [id number] 02/18/2019 10:46:48 AM EST Harnett Tonja rdes - [facility] Name Value Range Interpretation Code Description Data Arianne rce(s) Supporting Document(s) GFR-KIEL >60 mL/min/1.73m2 >=60 [facility] eGFR added on by Discern Expert.* GFR-NA A has been calculated for Non- Americans, GFR-AA has been calculated for Americans. They are based on the standardized IDMS creatinine value and do not include the patient weight. If the patient's weight is not withThis estimation applies to patients with stable renal function only.An average GFR of greater than or equal to 60 mL/min/1.73 square meters is suggestive of normal kidney function.An average GFR for 3 months or more of 30-59 is suggestive of stage 3 kidney disease.An average GFR for 3 months or more of 15-29 is suggestive of stage 4 kidney disease.An average GFR for 3 months or more of less than 15 is suggestive of stage 5 kidney disease. GFR-AA >60 mL/min/1.73m2 >=60 [facility], [facility] ID Date Data Source [id number] 02/18/2019 10:46:46 AM EST Harnett Tonja rdes - [facility], [facility] Name Value Range Interpretation Code Description Data Arianne rce(s) Supporting Document(s) Sodium Level 140 mmol/L 136-144 Harnett Lo urlorraine - [facility], [facility] Potassium Level 3.6 mmol/L 3.6-5.1 Harnett Sarah - [facility], [facility] Chloride 112 mmol/L 98-110 Above high normal [facility], [facility] CO2 24 mmol/L 22-32 Harnett Lozenon lorraine - [facility], [facility] AGAP 4 mEq/L 4-14 Harnett Lozenon peters - [facility], [facility] Glucose Level. 91 mg/dL 65-100 Harnett Sarah - [facility], [facility] If patient is taking either of these dominguez gs, there has been a bias identified:Sulfasalazine may cause falsely decreased resultsSulfaspyridine may cause falsely increased results BUN 15 mg/dL 8-23 Harnett Lozenon lorraine - [facility], [facility] Creatinine 0.80 mg/dL 0.40-1.10 Harnett Lour lorraine - [facility], [facility] Calcium 8.9 mg/dL 8.5-10.5 Harnett Lour lorraine - [facility], [facility] Total Protein 7.1 gm/dL 6.4-8.2 Harnett L laurides - [facility], [facility] Globulin 3.5 gm/dL 1.5-3.8 Harnett Lozenon peters - [facility], [facility] Albumin Level 3.6 gm/dL 3.3-4.8 Harnett L ourdes - [facility] Bilirubin Total. 0.4 mg/dL 0.2-1.0 [facility], [facility] AST 11 unit/L 15-41 Below low normal [facility] - [facility] If patient is taking either of these dominguez gs, there has been a bias identified:Sulfasalazine may cause falsely decreased resultsSulfaspyridine may cause falsely decreased results Alk Phos 93 unit/L 45-117 Harnett Lour lorraine - [facility] ALT 47 unit/L 14-54 Harnett Lour lorraine - [facility] If patient is taking either of these dominguez gs, there has been a bias identified:Sulfasalazine may cause falsely decreased resultsSulfaspyridine may cause falsely decreased results ID Date Data Source [id number] 02/18/2019 10:46:46 AM EST Harnett Tonja rdes - [facility] Name Value Range Interpretation Code Description Data Arianne rce(s) Supporting Document(s) Amylase Level 28 unit/L 28-100 Harnett L zee - [facility] ID Date Data Source [id number] 02/18/2019 10:17:55 AM EST Harnett Tonja rdes - [facility] Name Value Range Interpretation Code Description Data Arianne rce(s) Supporting Document(s) WBC 6.6 K/uL 4.0-10.0 Harnett Lour lorraine - [facility], [facility] RBC 4.50 Million/mcL 4.20-5.40 [facility], [facility] Hgb 12.4 gm/dL 12.0-16.0 Harnett Lour lorraine - [facility], [facility] Hct 37.2 % 36.0-47.0 Harnett Lour lorraine - [facility] MCV 82.6 fL 82.0-98.0 Harnett Lour lorraine - [facility], [facility] MCH 27.5 pg 26.0-33.0 Harnett Lour lorraine - [facility] MCHC 33.3 gm/dL 32.0-36.0 Harnett Lour lorraine - [facility], [facility] RDW 13.7 % 11.4-14.4 Harnett Lour lorraine - [facility], [facility] Platelet 272 K/mcL 150-400 Harnett Lour lorraine - [facility], [facility] MPV 8.3 fL 7.4-10.4 Harnett Lour lorraine - [facility] ID Date Data Source [id number] 02/18/2019 10:17:54 AM EST Harnett Tonja rdes - [facility] Name Value Range Interpretation Code Description Data Arainne rce(s) Supporting Document(s) Neutrophils, auto 63.8 % 40.0-80.0 [facility] Neutrophils, absolute 4.2 K/mcL 1.5-7.7 [facility] - [facility] Lymphocytes, auto 23.6 % 15.0-40.0 [facility] Lymphocytes, absolute 1.6 K/mcL 1.5-4.0 [facility] - [facility] Monocytes, auto 10.9 % 0.0-12.0 Harnett Sarah - [facility] Monocytes, absolute 0.7 K/mcL 0.2-1.0 [facility] Sarah - [facility] Eosinophils, auto 0.9 % 0.0-5.0 [facility] - [facility], [facility] Eosinophils, absolute 0.1 K/mcL 0.0-0.3 [facility] - [facility] Basophils, auto 0.8 % 0.0-2.0 Harnett Sarah - [facility] Basophils, absolute 0.1 K/mcL 0.0-0.1 [facility] - [facility] Procedure Social History Code Duration Value Status Description Data Source(s ) Alcohol intake 12/20/2019 12:00:00 AM EDT Current non-d chana of alcohol (finding) completed Current non-drinker of alcohol (finding) [facility] Tobacco use and exposure 12/20/2019 12:00:00 AM EDT Never used co mpleted Never used [facility] Smoking 12/20/2019 12:00:00 AM EDT Never smoker completed Never s moker [facility] 06/29/2019 12:00:00 AM EDT Patient is a current smoker, smokes every day completed Patient is a current smoker, smokes every day [facility] ( [facility]) ASSERTION 05/08/2019 12:00:00 AM EDT soda and coffee completed soda and coffee [facility] Vital Signs ID Date Data Source UNK Name Value Range Interpretation Code Description Data Source(s) Body weight Measured 240 lb 14 oz 240 lb 14 oz Harnett Sarah - [facility] 2Result Comment: Result placed secondary from kg, converted to lbs Body height 66.0 [in_i] 66.0 [in_i] Harnett Jessica koch - [facility] 1Result Comment: Result placed secondary from cm, converted to Inches Deprecated Oxygen saturation in Capillary blood by Oximetry 98 % 90-100 Normal (applies to non-numeric results) 98 % Harnett Sarah - [facility] Heart rate 100 /min 60-100 Normal (applies to non-numeric resul ts) 100 /min Harnett Sarah - [facility] Systolic blood pressure 90-140 Normal (applies t o non-numeric results) mm[Hg] Harnett Sarah - [facility] Body temperature 98.6 [degF] 97.9-99.7 Normal (applies to non-n umeric results) 98.6 [degF] [facility]arnett Sarah - [facility] Deprecated Oxygen saturation in Capillary blood by Oximetry 97 % 90-100 Normal (applies to non-numeric results) 97 % [facility]arnett Sarah - [facility] Respiratory rate 20 /min 14-20 Normal (applies to non-numeric results) 20 /min [facility]arnett Sarah - [facility] Heart rate 104 /min 60-100 Above high normal 104 /min [facility] - [facility] Systolic blood pressure 90-140 Normal (applies t o non-numeric results) mm[Hg] Harnett Sarah - [facility] Body temperature 98.4 [degF] 97.9-99.7 Normal (applies to non-n umeric results) 98.4 [degF] [facility]arnett Sarah - [facility] Body weight Measured 244 lb 8 oz 244 lb 8 oz As cension Sarah - [facility] 2Result Comment: Result placed secondary from kg, converted to lbs Body height 66.0 [in_i] 66.0 [in_i] Harnett L zee - [facility] 1Result Comment: Result placed secondary from cm, converted to Inches Deprecated Oxygen saturation in Capillary blood by Oximetry 97 % 90-100 Normal (applies to non-numeric results) 97 % Harnett Sarah - [facility] Respiratory rate 20 /min 14-20 Normal (applies to non-numeric results) 20 /min [facility]arnett Sarah - [facility] Heart rate 104 /min 60-100 Above high normal 104 /min [facility] - [facility] Systolic blood pressure 90-140 Normal (applies t o non-numeric results) mm[Hg] Harnett Sarah - [facility] Body temperature 98.4 [degF] 97.9-99.7 Normal (applies to non-n umeric results) 98.4 [degF] Harnett Sarah - [facility] Body weight Measured 244 lb 8 oz 244 lb 8 oz As cension Sarah - [facility] 2Result Comment: Result placed secondary from kg, converted to lbs Body height 66.0 [in_i] 66.0 [in_i] [facility]arnett L zee - [facility] 1Result Comment: Result placed secondary from cm, converted to Inches Body mass index (BMI) [Ratio] 38.96 kg/meter(2) Overweight 38.96 kg/meter(2) [facility] Respiratory rate 18 /min 18 /min [facility] Body temperature 97.90 [degF] 97.90 [degF] [facility] Heart rate 94 /min 94 /min [facility] Diastolic blood pressure 84 mm[Hg] 84 mm[Hg] [facility] Systolic blood pressure 138 mm[Hg] 138 mm[Hg] [facility] Body weight Measured 241.41 [lb_av] 241.41 [lb_ av] [facility] Body height 66.00 [in_us] 66.00 [in_us] [facility] Body weight Measured 241 lb 7 oz 241 lb 7 oz As [facility] Sarah - [facility] 2Result Comment: Result placed secondary from kg, converted to lbs Body height 66.0 [in_i] 66.0 [in_i] Harnett L zee - [facility] 1Result Comment: Result placed secondary from cm, converted to Inches Deprecated Oxygen saturation in Capillary blood by Oximetry 98 % 90-100 Normal (applies to non-numeric results) 98 % [facility]arnett Sarah - [facility] Respiratory rate 20 /min 14-20 Normal (applies to non-numeric results) 20 /min [facility]arnett Sarah - [facility] Heart rate 97 /min 60-100 Normal (applies to non-numeric resul ts) 97 /min [facility]arnett Sarah - [facility] Systolic blood pressure 90-140 Normal (applies t o non-numeric results) mm[Hg] Harnett Sarah - [facility] Body temperature 98.1 [degF] 97.9-99.7 Normal (applies to non-n umeric results) 98.1 [degF] Harnett Sarah - [facility] Body weight Measured 241 lb 7 oz 241 lb 7 oz As [facility] Sarah - [facility] 2Result Comment: Result placed secondary from kg, converted to lbs Body height 66.0 [in_i] 66.0 [in_i] Harnett L zee - [facility] 1Result Comment: Result placed secondary from cm, converted to Inches Deprecated Oxygen saturation in Capillary blood by Oximetry 98 % 90-100 Normal (applies to non-numeric results) 98 % Harnett Sarah - [facility] Respiratory rate 20 /min 14-20 Normal (applies to non-numeric results) 20 /min [facility]arnett Sarah - [facility] Heart rate 97 /min 60-100 Normal (applies to non-numeric resul ts) 97 /min Harnett Sarah - [facility] Systolic blood pressure 90-140 Normal (applies t o non-numeric results) mm[Hg] Harnett Sarah - [facility] Body temperature 98.1 [degF] 97.9-99.7 Normal (applies to non-n umeric results) 98.1 [degF] Harnett Sarah - [facility] Patient Treatment Plan of Care Planned Activity Planned Date Details Description Data Source (s) Flonase Allergy Relief 50 mcg/actuation nasal spray,[facility] 06/08/2016 12:00:00 AM EDT [facility] Previfem 0.25 mg-35 mcg tablet [facility] Lactobacillus rhamnosus GG [id number] UNT Oral Capsule [facility] trazodone 50 mg tablet Un[facility] Hyoscyamine Sulfate 0.125 MG/ML Oral Solution [facility] Briellyn 0.4 mg-35 mcg tablet [facility] Clonazepam 1 MG Oral Tablet [facility] methylphenidate ER 50 mg multiphase capsule 30-70,extended release [facility] Metformin hydrochloride 500 MG Oral Tablet [facility]
--- OUTSIDE RECORDS SUMMARY | 2020-03-12 20:59 | CCD ---
Author Author [facility] Organization [facility] Address Unknown Phone Unavailable Care Team Providers [facility] Counselor Name Role Phone CAM PRINCE MD Unavailable [...] GINZBURG CAM MD Unavailable Unavailable GINZROSALIO CAM Unavailable [...] Unavailable Unavailable GINZBURG CAM Unavailable Unavailable GINZBURG CMA MD Unavailable Unavailable GINZBURG, CAM MD Unavailable [...] Dustin LINARES, Physician Maryann Gee Unavailable Unavailable hTeron DOBSON Unavailable Unavailable Kathy GONZALEZ Unavailable Unavailable Tere Mckenna MD Unavailable Unavailable Tere Mckenna MD Unavailable Unavailable Tere Mckenna MD Unavailable Unavailable CROWDER, ANANYA DO Unavailable Unavailable CROWDER, ANANYA DO Unavailable Unavailable CROWDER, ANANYA DO Unavailable Unavailable CROWDER, ANANYA DO Unavailable Unavailable CROWDER, ANANYA DO Unavailable Unavailable Provider Pending, [facility] Shamar Combs MD Unavailable Un available Toñito Avina MD Unavailable Unavailable Toñito Avina MD Unavailable Unavailable TAHIRA NEAL Unavailable Unavailable JIGNESH ELLIS MD Unavailable Unavailable JIGNESH ELLIS MD Unavailable Unavailable [place], Desiree LEATHER GOODS ASSEMBLER Unavailable Unavailable [place], Desiree [employer]ER GOODS ASSEMBLER Unavailable Unavailable [place], Desiree [employer]ER [employer] ASSEMBLER Unavailable Unavailable [place], Desiree [employer] ASSEMBLER Unavailable Unavailable [place], Desiree [employer] ASSEMBLER Unavailable Unavailable NON, PHYSICIAN STAFF Unavailable Unavailable [...] Unavailable Juarez, W Best Unavailable Unavailable MEDENT_[id number], [id number] Unavailable MEDENT_8436, [id number] Unavailable MEDENT_8436, [id number] Unavailable MEDENT_8436, [id number] Unavailable MEDENT_8436, [id number] Unavailable MEDENT_8436, [id number] Unavailable MEDENT_8436, [id number] Unavailable MEDENT_8436, [id number] Unavailable MEDENT_8436, [id number] Unavailable Theron Fuller MD Unavailable Unavailable Theron [...] Unavailable Miah, E Dinorah MD Unavailable Unavailable Re-disclosure Warning [...] is protected by Article 27-F of the [place] Public [employer] law. If you continue you may have access to information: Regarding HIV / AIDS; Provided by facilities licensed or operated by the [facility] Office of Mental Health; or Provided by the [facility] Office for People With Developmental Disabilities. If such information is present, then the following [facility] [facility] mandated warning applies: This information has been [...] law may result in a fine or penitentiary sentence or both. A general authorization for the release of medical or other information is NOT sufficient authorization for further disc losure. Family History Family Member Name Family Member Gender Family Member Status Date o f Status Description Data Source(s) Unknown Male Diagnosis 11/07/2014 12:00:00 AM EDT [facility] Encounters Encounter Providers Location Date Indications Data Source(s ) Outpatient Attender: CAM PRINCE MD 02/21/2020 12:00: 00 AM [facility] Outpatient Attender: CAM PRINCE MD [id number] 12:00:00 AM EDT - 12/20/2019 03:38:04 PM EDT [facility] Emergency Attender: RONDA GARCIAConsultant: STAFF NON 11/07/2019 11:33:00 PM EDT - 11/08/2019 01:19:00 AM EDT [facility] Patient discharged. Outpatient 07/20/2019 06:39:00 PM EDT [facility] Outpatient Attender: REBEKAH CHAUHAN MD MDAdmitt er: REBEKAH CHAUHAN MD, MD [facility] 07/18/2019 10:30:00 AM EDT TELEPHONE discuss surgery [facility] TELEPHONE discuss surgery [facility] ENT/Facial Plastic Surgery 0 07/18/2019 10:30:00 AM EDT - 07/18/2019 10:30:00 AM EDT Proc/trtmt not carried out because of contraindication [facility] Proc/trtmt not carried out because of co ntraindication P Attender: SALMA CARRASCOdmitter: SALMA ALVARADO MATTHIAS-MATTHIAS 07/11/2019 10:42:00 AM EDT [place] - [facility], [facility] P Attender: LISA DOBSONAdmitter: LISA DOBSON MATTHIAS-MATTHIAS 2019 03:14:00 PM EDT [place] - [facility], [facility] Outpatient Attender: LISA DOBSONAdmitter: LISA DOBSON MATTHIAS-MATTHIAS 06/29/2019 01:18:00 PM EDT - 06/29/2019 01:18:00 PM EDT [place] - [facility] Patient discharged. Outpatient Attender: Wali Temple MDAdmitter: Wali casanova MD [facility] 06/18/2019 06:16:00 PM EDT - 06/18/2019 08:15:00 PM EDT [facility] Patient discharged. Outpatient Attender: SALMA CARRASCOdmitter: SALMA ALVARADO OUT-OUT 05/31/2019 12:01:00 AM EDT - 06/29/2019 11:59:00 PM EDT [place] - [facility] Patient discharged. P Attender: SALMA Bethitter: SALMA ALVARADO MATTHIAS-MATTHIAS 05/30/2019 08:44:00 AM EDT [place] - [facility] Outpatient Attender: SALMA CARRASCOdmitter: SALMA ALVARADO MATTHIAS-MATTHIAS 05/30/2019 08:29:00 AM EDT - 05/30/2019 08:29:00 AM EDT [place] - [facility] Patient discharged. P Attender: Desiree CHERRY PAttender: PROVIDER TESTAdmitter: Desiree HERNANDEZ LCB-LCB 05/26/2019 01:33:00 PM EDT [place] [facility] - [facility] Outpatient Attender: HALEY ZAYASAdmitter: HALEY SERRANO LCB-LCB 05/16/2019 05:58:00 PM EDT - 05/16/2019 05:58:00 PM EDT [place] - [facility] Patient discharged. Outpatient Attender: HALEY FRIEDMAN ttender: PROVIDER TESTAdmitter: HALEY ZAYAS LCB-LCB 05/16/2019 05:23:00 PM EDT - 05/16/2019 05:58:00 PM EDT [place] - [facility] Emergency Attender: Nilton moura DOAdmitter: Nilton ABRAMSeferrer: Dinorah Chavez/Katina-M/S 05/12/2019 02:05:00 PM EDT - 05/12/2019 03:05:00 PM EDT [place] - [facility] Patient discharged. Emergency Attender: Nilton moura DOAdmitter: Nilton Willson DOReferrer: Dinorah Dooley MD ANC-ER 05/12/2019 02:05:00 PM EDT [place] - [facility] Outpatient Attender: TAHIRA BELLA PAAdmitter: TAHIRA BELLA PA MATTHIAS-MATTHIAS 05/12/2019 12:53:00 PM EDT - 05/12/2019 12:53:00 PM EDT [place] - [facility] Patient discharged. Outpatient Attender: Best Verma r: [facility] Bandera Br Provider Pending MDAdmitter: Best CASTRO 05/08/2019 11:02:00 AM EDT [facility] OutpatientOffice/outpatient visit,est, mod [facility] 05/08/2019 11:02:00 AM EDT - 05/08/2019 11:02:00 AM EDT Intractable migraine without status migrainosus, unspecified migraine type [facility] Intractable migraine without status migr ainosus, unspecified migraine type Outpatient Attender: MADHAVI GUAJARDOdmitter: MADHAVI WIN ANC -BCC 05/01/2019 08:27:00 AM EST - 05/01/2019 08:27:00 AM EST [place] - [facility] Patient discharged. Outpatient Attender: SALMA CARRASCOdmitter: SALMA ALVARADO OUT-OUT 2019 12:01:00 AM EST - 05/30/2019 11:59:00 PM EDT [place] - [facility] Patient discharged. Emergency Attender: Teddy Kurtz nder: Nilton Willson DOAdmitter: Teddy Mckenna MDReferrer: Dinorah Chavez/Katina-M/S 04/27/2019 01:15:00 PM EST - 04/27/2019 05:18:00 PM EST [place] - [facility] Patient discharged. Emergency Attender: Nilton Willson DOAdmitter : Nilton Willson DO ANC-ER 04/27/2019 01:15:00 PM EST [place] - [facility] Outpatient Attender: SALMA Bethitter: SALMA ALVARADO OUT-OUT 04/26/2019 02:59:00 PM EST - 04/27/2019 09:13:00 AM EST [place] - [facility] Patient discharged. Outpatient Attender: SALMA Bethitter: SALMA ALVARADO OUT-OUT 04/25/2019 09:15:00 AM EST - 04/29/2019 11:59:00 PM EST [place] - [facility] Patient discharged. Outpatient Attender: TAHIRA BELLA PAAvivianitter: TAHIRA HOFFMANN MATTHIAS-MATTHIAS 04/24/2019 10:16:00 AM EST - 04/24/2019 10:16:00 AM EST [place] - [facility] Patient discharged. P Attender: TAHIRA Buenoitter: TAHIRA HOFFMANN MATTHIAS-MATTHIAS 04/24/2019 09:00:00 AM EST [place] [facility] - [facility] P Attender: SALMA Bethitter: SALMA ALVARADO MATTHIAS-MATTHIAS 04/19/2019 09:00:00 AM EST [place] - [facility] Outpatient Attender: SALMA Bethitter: SALMA ALVARADO MATTHIAS-MATTHIAS 04/10/2019 07:46:00 AM EST - 04/10/2019 09:28:00 AM EST [place] - [facility] Patient discharged. Outpatient Attender: SALMA Bethitter: SALMA ALVARADO ANC-NICKOLAS 04/10/2019 05:00:00 AM EST - 04/10/2019 07:00:00 PM EST [place] - [facility] Patient discharged. Outpatient Attender: SALMA CARRASCO dmitter: SALMA Alemanultant: Physician Marlen Chan MD ANC-NICKOLAS 04/10/2019 05:00:00 AM EST - 04/10/2019 07:00:00 PM EST [place] - [facility] P Attender: SALMA Bethitter: SALMA ALVARADO ANC-NICKOLAS 04/10/2019 04:00:00 AM EST [place] - [facility] P Attender: SALMA Bethitter: SALMA ALVARADO PAT-PAT 04/05/2019 04:00:00 AM EST [place] [facility] - [facility] P Attender: SALMA Bethitter: SALMA ALVARADO MATTHIAS-MATTHIAS 04/04/2019 01:50:00 PM EST [place] - [facility] Outpatient Attender: [id number] [id number] [facility] Main Office 04/04/2019 11:45:00 AM EST [facility] ([facility] ) Outpatient Attender: SALMA Bethitter: SALMA ALVARADO MATTHIAS-MATTHIAS 04/04/2019 09:52:00 AM EST - 04/04/2019 09:52:00 AM EST [place] - [facility] Patient discharged. Emergency Attender: Toñito Hernandez ter: Toñito Avina MDReferrer: Dinorah Dooley MD M/S-M/S 04/03/2019 12:15:00 PM EST - 04/03/2019 05:20:00 PM EST [place] - [facility] Patient discharged. Emergency Attender: Toñito Hernandez ter: Toñito LARKINeferrer: Dinorah Dooley MD ANC-ER 04/03/2019 12:15:00 PM EST - 04/03/2019 05:20:00 PM EST [place] - [facility] P Attender: MADHAVI Williamitter: MADHAVI WIN ANC -BCC 03/28/2019 04:00:00 AM EST [place] [facility] - [facility] Outpatient Attender: PROVIDER TESTAdmitter: PROVIDER TEST Jessica ARMENDARIZ-LCB 03/26/2019 11:11:00 AM EST - 03/26/2019 12:11:00 PM EST [place] - [facility] Patient discharged. Outpatient Attender: ZEE GONZALEZAttender: PROVIDER TESTAdmitter: ZEE ABDALLA-LCB 03/26/2019 10:11:00 AM EST - 03/26/2019 12:11:00 PM EST [place] - [facility] Outpatient Attender: ZEE GONZALEZAttender: PROVIDER TESTAdmitter: ZEE ARELLANOB-LCB 03/26/2019 10:11:00 AM EST - 03/27/2019 11:59:59 PM EST [place] - [facility] Emergency Attender: Atilio Fuller MDAdmitter: Atilio Chavez/S-M/S 02/18/2019 09:11:00 AM EST - 02/18/2019 02:08:00 PM EST [place] - [facility] Patient discharged. Emergency Attender: Atilio Fuller MDAdmitter: Atilio stahl MD ANC-ER 02/18/2019 09:11:00 AM EST [place] [facility] - [facility] Outpatient [facility] 01/27/2019 02:52:00 PM EST - 019 12:00:00 AM EDT [facility] Patient discharged. [facility] [employer] Evelina 1 03/29/2018 02:48:00 PM EST - 01/27/2019 02:48:00 PM EST [employer] ([facility]) Emergency Attender: ANANYA OMALLEY ttender: Nilton Willson DOAdmitter: ANANYA CROWDER DOReferrer: Dinorah Dooley MD M/S-M/S 12/03/19 02:43:00 PM EDT - 12/02/2018 07:06:00 PM EDT [place] - [facility] Patient discharged. Emergency Attender: JIGNESH ELLIS MDAt tender: Atilio Fuller MDAdmitter: JIGNESH ELLIS MDReferrer: Dinorah Dooley MD M/S-M/S 11/28/2018 01:55 :00 PM EDT - 11/28/2018 06:46:00 PM EDT [place] [facility] Patient discharged. Medications Medication Brand Name Start Date Product Form Dose Route Admi nistrative Instructions Pharmacy Instructions Status Indications Reaction Description Data Source(s) Diclofenac Sodium 50 MG Delayed Release Oral Tablet Diclofen ac Sodium 06/29/2019 12:00:00 AM EDT ORAL active M [facility] ([facility]) naproxen 500 mg oral tablet 05/26/2019 02:15:00 PM EDT 5 00.0 By Mouth completed 500 mg = 1 tab(s), P O (oral), bid, PRN Pain, # 30 tab(s), Maintenance, Pharmacy: [facility]/pharmacy #[id number], 1 tab(s) PO (oral) bid,PRN:Pain [place] - [facility] naproxen 500 mg oral tablet 05/26/2019 02:15:00 PM EDT 5 00.0 By Mouth completed 500 mg = 1 tab(s), P O (oral), bid, PRN Pain, # 30 tab(s), Maintenance, Pharmacy: [id number], 1 tab(s) PO (oral) bid,PRN:Pain [place] [facility] - [facility], [facility] naproxen 500 mg oral tablet 05/26/2019 02:15:00 PM EDT 5 00.0 By Mouth completed 500 mg = 1 tab(s), P O (oral), bid, PRN Pain, # 30 tab(s), Maintenance, Pharmacy: [facility]/pharmacy #[id number], 1 tab(s) PO (oral) bid,PRN:Pain [place] [facility], [facility] naproxen 500 mg oral tablet 05/26/2019 02:15:00 PM EDT 5 00.0 By Mouth completed 500 mg = 1 tab(s), P O (oral), bid, PRN Pain, # 30 tab(s), Maintenance, Pharmacy: [id number], 1 tab(s) PO (oral) bid,PRN:Pain [place] - [facility], [facility] Zofran 4 mg oral tablet 05/12/2019 02:44:00 PM EDT 4.0 Under your Tongue completed 4 mg = 1 tab(s), SubLINGUAL, q6hr, PRN for Nausea or Vomiting, # 9 tab(s), 0 Refill(s), Maintenance, Pharmacy: [id number], 1 tab(s) SubLINGUAL q6hr,x3 day(s),PRN:for Nausea or Vomiting [place] - [facility], [facility] Zofran 4 mg oral tablet 05/12/2019 02:44:00 PM EDT 4.0 Under your Tongue completed 4 mg = 1 tab(s), SubLINGUAL, q6hr, PRN for Nausea or Vomiting, # 9 tab(s), 0 Refill(s), Maintenance, Pharmacy: [facility]/pharmacy #[id number], 1 tab(s) SubLINGUAL q6hr,x3 day(s),PRN:for Nausea or Vomiting [place] [facility] - [facility] Zofran 4 mg oral tablet 05/12/2019 02:44:00 PM EDT 4.0 Under your Tongue completed 4 mg = 1 tab(s), SubLINGUAL, q6hr, PRN for Nausea or Vomiting, # 9 tab(s), 0 Refill(s), Maintenance, Pharmacy: [facility]/pharmacy #[id number], 1 tab(s) SubLINGUAL q6hr,x3 day(s),PRN:for Nausea or Vomiting [place] [facility] - [facility] Zofran 4 mg oral tablet 05/12/2019 02:44:00 PM EDT 4.0 Under your Tongue completed 4 mg = 1 tab(s), SubLINGUAL, q6hr, PRN for Nausea or Vomiting, # 9 tab(s), 0 Refill(s), Maintenance, [facility]acy: [id number], 1 tab(s) SubLINGUAL q6hr,x3 day(s),PRN:for Nausea or Vomiting [place] - [facility], [facility] Zofran 4 mg oral tablet 05/12/2019 02:44:00 PM EDT 4.0 Under your Tongue completed 4 mg = 1 tab(s), SubLINGUAL, q6hr, PRN for Nausea or Vomiting, # 9 tab(s), 0 Refill(s), Maintenance, Pharmacy: [facility]/pharmacy #[id number], 1 tab(s) SubLINGUAL q6hr,x3 day(s),PRN:for Nausea or Vomiting [place] [facility], [facility] Zofran ODT 4 mg oral tablet, disintegrating 04/27/2019 05: 08:00 PM EST 4.0 By Mouth completed 4 mg = 1 tab(s ), PO (oral), tid, PRN Nausea, # 9 tab(s), Maintenance, Pharmacy: [facility]/pharmacy #[id number], 1 tab(s) PO (oral) tid,PRN:Nausea [place] - [facility], [facility] Zofran ODT 4 mg oral tablet, disintegrating 04/27/2019 05: 08:00 PM EST 4.0 By Mouth completed 4 mg = 1 tab(s ), PO (oral), tid, PRN Nausea, # 9 tab(s), Maintenance, [id number], 1 tab(s) PO (oral) tid,PRN:Nausea [place] [facility] - [facility] Zofran ODT 4 mg oral tablet, disintegrating 04/27/2019 05: 08:00 PM EST 4.0 By Mouth completed 4 mg = 1 tab(s ), PO (oral), tid, PRN Nausea, # 9 tab(s), Maintenance, Pharmacy: [id number], 1 tab(s) PO (oral) tid,PRN:Nausea [place] - [facility], [facility] Zofran ODT 4 mg oral tablet, disintegrating 04/27/2019 05: 08:00 PM EST 4.0 By Mouth completed 4 mg = 1 tab(s ), PO (oral), tid, PRN Nausea, # 9 tab(s), Maintenance, Pharmacy: [facility]/pharmacy #[id number], 1 tab(s) PO (oral) tid,PRN:Nausea [place] [facility], [facility] Zofran ODT 4 mg oral tablet, disintegrating 04/27/2019 05: 08:00 PM EST 4.0 By Mouth completed 4 mg = 1 tab(s ), PO (oral), tid, PRN Nausea, # 9 tab(s), Maintenance, Pharmacy: [facility]/pharmacy #[id number], 1 tab(s) PO (oral) tid,PRN:Nausea [place] [facility], [facility] Zofran ODT 4 mg oral tablet, disintegrating 04/27/2019 05: 08:00 PM EST 4.0 By Mouth completed 4 mg = 1 tab(s ), PO (oral), tid, PRN Nausea, # 9 tab(s), Maintenance, Pharmacy: [facility]/pharmacy #[id number], 1 tab(s) PO (oral) tid,PRN:Nausea [place] [facility], [facility] Omeprazole omeprazole 40 mg oral delayed release capsu le omeprazole 40 mg oral delayed release capsule 04/27/2019 05:00:00 PM EST 40.0 By Mouth completed 40 mg = 1 cap(s), PO (oral), qDay, # 90 cap(s), Maintenance, Pharmacy: [facility]/pharmacy #[id number], 1 cap(s) PO (oral) qDay [place] [facility], [facility] Omeprazole omeprazole 40 mg oral delayed release capsu le omeprazole 40 mg oral delayed release capsule 04/27/2019 05:00:00 PM EST 40.0 By Mouth completed 40 mg = 1 cap(s), PO (oral), qDay, # 90 cap(s), Maintenance, Pharmacy: [facility]/pharmacy #[id number], 1 cap(s) PO (oral) qDay [place] [facility], [facility] Omeprazole omeprazole 40 mg oral delayed release capsu le omeprazole 40 mg oral delayed release capsule 04/27/2019 05:00:00 PM EST 40.0 By Mouth completed 40 mg = 1 cap(s), PO (oral), qDay, # 90 cap(s), Maintenance, Pharmacy: [facility]/pharmacy #[id number], 1 cap(s) PO (oral) qDay [place] [facility] Omeprazole omeprazole 40 mg oral delayed release capsu le omeprazole 40 mg oral delayed release capsule 04/27/2019 05:00:00 PM EST 40.0 By Mouth completed 40 mg = 1 cap(s), PO (oral), qDay, # 90 cap(s), Maintenance, [id number], 1 cap(s) PO (oral) qDay [place] - [facility], [facility] Omeprazole omeprazole 40 mg oral delayed release capsu le omeprazole 40 mg oral delayed release capsule 04/27/2019 05:00:00 PM EST 40.0 By Mouth completed 40 mg = 1 cap(s), PO (oral), qDay, # 90 cap(s), Maintenance, Pharmacy: [facility]/pharmacy #[id number], 1 cap(s) PO (oral) qDay [place] - [facility], [facility] Omeprazole omeprazole 40 mg oral delayed release capsu le omeprazole 40 mg oral delayed release capsule 04/27/2019 05:00:00 PM EST 40.0 By Mouth completed 40 mg = 1 cap(s), PO (oral), qDay, # 90 cap(s), Maintenance, Pharmacy: [facility]/pharmacy #[id number], 1 cap(s) PO (oral) [facility] medroxyPROGESTERone 150 mg/mL intramuscular suspension 04/27/2019 04:13:00 PM EST 150.0 IntraMUSCULAR completed 150 mg =, IM, Maintenance [facility], [facility] Morphine Sulfate 15 MG Oral Tablet Morphine Sulfate 04/11/2019 1 2:00:00 AM EST ORAL completed [facility] ([facility]) acetaminophen-oxyCODONE 325 mg-5 mg oral tablet 2019 12:18:00 PM EST 1.0 By Mouth completed 1 tab(s), PO (oral), q4h, PRN Moderate Pain (4- 6), # 20 tab(s), 0 Refill(s), Maintenance, [id number], 1 tab(s) PO (oral) q4h,PRN:Moderate Pain (4-6) [place] [facility], [facility] CeleBREX 100 mg oral capsule 04/10/2019 12:17:00 PM EST 100.0 By Mouth completed 100 mg = 1 cap(s), P O (oral), bid, # 60 cap(s), Maintenance, [id number], 1 cap(s) PO (oral) bid [place] [facility] docusate sodium 100 mg oral tablet 04/10/2019 12:16:00 PM EST 100.0 By Mouth completed 100 mg =, PO ( oral), qDay, # 5 tab(s), Maintenance, Pharmacy: [facility]/pharmacy #[id number], 100 mg PO (oral) qDay [place] [facility] - [facility] cephalexin 500 mg oral capsule 04/10/2019 12:16:00 PM EST 500.0 By Mouth completed 500 mg = 1 cap(s ), PO (oral), q6hr, # 12 cap(s), Maintenance, Pharmacy: [facility]/pharmacy #[id number], 1 cap(s) PO (oral) q6hr [place] - [facility] Zofran ODT 4 mg oral tablet, disintegrating 04/10/2019 12: 16:00 PM EST Under your Tongue completed 1 to 2 tab(s), SubLINGUAL, q8h, PRN for nausea or vomiting, # 4 tab(s), Maintenance, [id number], 1 to 2 tab(s) SubLINGUAL q8h,PRN:for nausea or vomiting [place] [facility] aspirin 325 mg oral delayed release tablet 04/10/2019 12:1 6:00 PM EST 325.0 By Mouth completed 325 mg = 1 tab (s), PO (oral), qDay, # 14 tab(s), Maintenance, [id number], 1 tab(s) PO (oral) qDay [place] [facility], [facility] Zofran ODT 4 mg oral tablet, disintegrating 04/03/2019 04: 37:30 PM EST Under your Tongue completed 1 to 2 tab(s), SubLINGUAL, q8h, PRN for nausea or vomiting, # 4 tab(s), Maintenance, Pharmacy: [facility]/pharmacy #[id number], 1 to 2 tab(s) SubLINGUAL q8h,PRN:for nausea or vomiting [place] [facility], [facility] Macrobid 100 mg oral capsule 03/26/2019 11:05:15 AM EST 100.0 By Mouth completed 100 mg = 1 cap(s), P O (oral), bid, # 10 cap(s), Maintenance, Pharmacy: [facility]/pharmacy #[id number], 1 cap(s) PO (oral) bid,x5 day(s) [place] [facility], [facility] Macrobid 100 mg oral capsule 03/26/2019 11:05:15 AM EST 100.0 By Mouth completed 100 mg = 1 cap(s), P O (oral), bid, # 10 cap(s), Maintenance, Pharmacy: [facility]/pharmacy #[id number], 1 cap(s) PO (oral) bid,x5 day(s) [place] - [facility], [facility] Voltaren 75 mg oral enteric coated tablet 02/18/2019 01:51 :38 PM EST 75.0 By Mouth completed 75 mg = 1 tab( s), PO (oral), bid, # 20 tab(s), Maintenance, Pharmacy: [facility]/pharmacy #[id number], 1 tab(s) PO (oral) bid [place] [facility] - [facility], [facility] Voltaren 75 mg oral enteric coated tablet 02/18/2019 01:51 :38 PM EST 75.0 By Mouth completed 75 mg = 1 tab( s), PO (oral), bid, # 20 tab(s), Maintenance, Pharmacy: [facility]/pharmacy #[id number], 1 tab(s) PO (oral) bid [place] [facility] - [facility], [facility] Flonase Allergy Relief 50 mcg/actuation nasal spray,dickinson spension Fluticasone propionate 0.05 MG/ACTUAT Metered Dose Nasal [place] 06/08/2016 12:00:00 AM EDT NASAL completed Fluticason e propionate 0.05 MG/ACTUAT Metered Dose Nasal [place] [Flonase] [facility] trazodone 50 mg tablet trazodone HCl TABLET 1.00 tablet ORAL completed take 1 tablet by oral route every day at bedtime [facility] Hyoscyamine Sulfate 0.125 MG/ML Oral Nat ution HYOSCYAMINE SULFATE (unknown strength) HYOSCYAMINE SULFATE (unknown strength) ORAL completed take 1 milliliter by oral route every 4 hours as needed [facility] Previfem 0.25 mg-35 mcg tablet {21 (Ethinyl Estradiol 0.035 MG / norgestimate 0.25 MG Oral Tablet) / 7 (Inert Ingredients 1 MG Oral Tablet) } Pack TABLET 1.00 tablet ORAL completed Previfem 28 Day Pa ck [facility] Briellyn 0.4 mg-35 mcg tablet {21 (Ethinyl Estradiol 0 .035 MG / Norethindrone 0.4 MG Oral Tablet) / 7 (Inert Ingredients 1 MG Oral Tablet) } Pack TABLET 1.00 tablet ORAL completed Briellyn 28 Day Pa ck [facility] Metformin hydrochloride 500 MG Oral Tablet metformin 5 00 mg tablet metformin 500 mg tablet TABLET 1.00 tablet ORAL completed take 1 tablet by oral route 2 times every day with morning and evening meals [facility] Lactobacillus rhamnosus GG [id number] U NT Oral Capsule Culturelle 10 billion cell capsule Culturelle 10 billion cell capsule CAPSULE ORAL completed [facility] Clonazepam 1 MG Oral Tablet clonazepam 1 mg tablet clonazepam 1 mg tablet TABLET 1 tablet ORAL completed take 1 tablet by oral route 2 times every day [facility] methylphenidate ER 50 mg multiphase capsule 30-70,exte nded release methylphenidate HCl CAPSULE ORAL completed take 1 capsule by oral route every day before breakfast [facility] Insurance Providers Payer name Policy type / Coverage type Policy ID Covered constitution party ID Covered constitution party's relationship to soto Policy [place] Plan Information [employer] [facility] [id number] SP [id number] CDP COMMERCIAL U [id number] Self 3 [id number] [employer] [facility] [id number] CDPHP [id number] self [id number] Medicaid [id number] Self [id number] CDPHP [id number] Self [id number] MEDICAID N[place] COMPUTER S [place] [id number] CDPHP COM [id number] F [id number] [facility] Organizational Contracts [id number] Self [id number] CDPHP [id number] self [id number] CDPHP COM [id number] F [id number] CDPHP COM [id number] F [id number] CDPHP Health Maintenance Organization (HMO) [id number] Family Dependent [id number] Medicaid [id number] Self [id number] CDPHP MCO 14 [id number] DE [id number] CDPHP COMMERCIAL U [id number] Self [id number] GOVERNMENTAL GENERIC B [id number] ORel [id number] MEDICAID M [id number] Self [id number] MEDICAID M [id number] Self [id number] Problems, Conditions, and Diagnoses Code Display Name Description Problem Type Effective Dates Data Source(s) 08616046 Knee pain Knee pain Problem 06/29/2019 12:00:00 AM ED T [facility] ([facility]) A54084 Nicotine dependence, cigarettes, uncompl icated Nicotine dependence, cigarettes, uncomplicated Diagnosis 11/07/2019 11:33:00 PM EDT [facility] N949 Unspecified condition associ ated with female genital organs and menstrual cycle Unspecified condition associated with fe male genital organs and menstrual cycle Diagnosis 11/07/2019 11:33:00 PM EDT [facility] N939 Abnormal uterine and vaginal bleeding, u nspecified Abnormal uterine and vaginal bleeding, unspecified Diagnosis 11/07/2019 11:33:00 PM EDT [facility] G12814 Pain in left knee Pain in left knee Diagnosis 06/29/2019 01:18:00 PM EDT eLxi Smith - [facility] K59.00 Constipation, unspecified Constipation, unspecified Di agnosis 06/22/2019 12:00:00 AM EDT [facility] Z4889 Encounter for other specified surgical a ftercare Encounter for other specified surgical aftercare Diagnosis 05/30/2019 08:29:00 AM EDT Asce darrell Smith - [facility], [facility] fever x 2 days fever x 2 days Diagnosis 05/26/2019 01:33: 00 PM EDT [place] - [facility], [facility] left knee injury left knee injury Diagnosis 05/16/2019 05 :23:00 PM EDT [place] - [facility], [facility] R509 Fever, unspecified Fever, unspecified Diagnosis 0 02:05:00 PM EDT [place] [facility] - [facility], [facility] FEVER CONGESTION N/V FEVER CONGESTION N/V Diagnosis 05/12/2019 02:05:00 PM EDT [place] - [facility], [facility] J029 Acute pharyngitis, unspecified Acute pharyngitis, unsp ecified Diagnosis 05/12/2019 02:05:00 PM EDT [place] - [facility], [facility] VAS RC VAS RC Diagnosis 05/12/2019 12:53:00 PM ED T [place] - [facility], [facility] M7989 Other specified soft tissue disorders Ot her specified soft tissue disorders Diagnosis 05/12/2019 12:53:00 PM EDT [place] Tonja rdes - [facility], [facility] N6452 Nipple discharge Nipple discharge Diagnosis 05/01/2019 08 :27:00 AM EST [place] - [facility], [facility] N644 Mastodynia Mastodynia Diagnosis 05/01/2019 08:27:00 AM ES T [place] - [facility], [facility] [id number] Other senior living (current) drug therapy O ther senior living (current) drug therapy Diagnosis 04/27/2019 01:15:00 PM EST [place] Tonja rdes - [facility], [facility] Z803 Family history of malignant neoplasm of breast Family history of malignant neoplasm of breast Diagnosis 04/27/2019 01:15:00 PM EST [place] Tonja rdes - [facility], [facility] Z3202 Encounter for test, result neg ative Encounter for test, result negative Diagnosis 04/27/2019 01:15:00 PM EST [place] our[place] - [facility], [facility] [id number] Personal history of nicotine dependence Personal history of nicotine dependence Diagnosis 04/27/2019 01:15:00 PM EST [place] Tonja rdes - [facility], [facility] [id number] Other specified postprocedural states Ot her specified postprocedural states Diagnosis 04/27/2019 01:15:00 PM EST [place] Tonja rdes - [facility], [facility] R110 Nausea Nausea Diagnosis 04/27/2019 01:15:00 PM ES T [place] - [facility], [facility] F329 Major depressive disorder, single episod e, unspecified Major depressive disorder, single episode, unspecified Diagnosis 04/27/2019 01:15:00 PM EST [place] - [facility], [facility] F419 Anxiety disorder, unspecified Anxiety disorder, unspec ified Diagnosis 04/27/2019 01:15:00 PM EST [place] - [facility], [facility] K2970 Gastritis, unspecified, without bleeding Gastritis, unspecified, without bleeding Diagnosis 04/27/2019 01:15:00 PM EST [place] Tonja rdes - [facility], [facility] K219 Gastro-esophageal reflux disease without esophagitis Gastro-esophageal reflux disease without esophagitis Diagnosis 04/27/2019 01:15:00 PM ES T [place] - [facility], [facility] CHILLS/VOMITING/CHEST CONGESTION/PAIN CHILLS/VOM ITING/CHEST CONGESTION/PAIN Diagnosis 04/27/2019 01:15:00 PM EST [place] [facility] - [facility] R079 Chest pain, unspecified Chest pain, unspecified Diagno sis 04/27/2019 01:15:00 PM EST [place] - [facility], [facility] R46207 Other instability, left knee Other instability, left k nee Diagnosis 04/24/2019 10:16:00 AM EST [place] - [facility], [facility] 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, 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, left knee Diagnosis 04/10/2019 07:46:00 AM EST [place] Tonja [place]des - [facility], [facility] F410 Panic disorder episodic paroxysmal an xiety Panic disorder episodic paroxysmal anxiety Diagnosis 04/10/2019 05:00:00 AM EST [place] - [facility], [facility] E282 Polycystic ovarian syndrome Polycystic ovarian syndrom e Diagnosis 04/10/2019 05:00:00 AM EST [place] - [facility], [facility] F909 Attention-deficit hyperactivity disorder , unspecified type Attention- deficit hyperactivity disorder, unspecified type Diagnosis 04/10 05:00:00 AM EST [place] - [facility], [facility] Z8041 Family history of malignant neoplasm of ovary Family history of malignant neoplasm of ovary Diagnosis 04/10/2019 05:00:00 AM EST [place] Ton[place] rdes - [facility], [facility] Z880 Allergy status to penicillin Allergy status to penicil livier Diagnosis 04/10/2019 05:00:00 AM EST [place] - [facility], [facility] 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, 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, left knee Diagnosis 04/10/2019 05:00:00 AM EST [place] Ton[place]des - [facility], [facility] MP MP Diagnosis 04/10/2019 05:00:00 AM ES T [place] - [facility], [facility] NICKOLAS NICKOLAS Diagnosis 04/10/2019 05:00:00 AM ES T [place] - [facility], [facility] M2352 Chronic instability of knee, left knee C hronic instability of knee, left knee Diagnosis 04/10/2019 05:00:00 AM EST [place] Ton[place]des - [facility], [facility] PAT PHONE PAT PHONE Diagnosis 04/05/2019 04:00:00 AM ES T [place] - [facility], [facility] [id number] Sprain of medial collateral ligament of left knee, init Sprain of medial collateral ligament of left knee, init Diagnosis 04/04/2019 09:52:00 AM EST [place] - [facility] K589 Irritable bowel syndrome without diarrhe a Irritable bowel syndrome without diarrhea Diagnosis 04/03/2019 12:15:00 PM EST [place] Ton[place]des - [facility] F418 Other specified anxiety disorders Other specifie d anxiety disorders Diagnosis 04/03/2019 12:15:00 PM EST [place] - [facility] K2900 Acute gastritis without bleeding Acute gastritis without bleeding Diagnosis 04/03/2019 12:15:00 PM EST [place] [facility] - [facility] VOMITING/ABD PAIN/UNABLE TO URINATE VOMITING/ABD PAIN/UNABLE TO URINATE Diagnosis 04/03/2019 12:15:00 PM EST [place] - [facility], [facility] R1032 Left lower quadrant pain Left lower quadrant pain Diag nosis 04/03/2019 12:15:00 PM EST [place] - [facility], [facility] BCC PRESLEY BCC PRESLEY Diagnosis 03/28/2019 04:00:00 AM ES T [place] - [facility], [facility] vomitting for a week vomitting for a week Diagnosis 03/26/2019 10:11:00 AM EST [place] - [facility] N390 Urinary tract infection, site not specif ied Urinary tract infection, site not specified Diagnosis 03/26/2019 10:11:00 AM EST [place] Tonja [place]des - [facility] N946 Dysmenorrhea, unspecified Dysmenorrhea, unspecified Di agnosis 02/18/2019 09:11:00 AM EST [place] - [facility], [facility] VOMITTING/RECTAL BLEEDING VOMITTING/RECTAL BLEEDING Di agnosis 02/18/2019 09:11:00 AM EST [place] - [facility] R1030 Lower abdominal pain, unspecified Lower abdomina l pain, unspecified Diagnosis 02/18/2019 09:11:00 AM EST [place] [facility] - [facility], [facility] Surgeries/Procedures Procedure Description Date Indications Data Source(s) POSTOP FOLLOW-UP VISIT POSTOP FOLLOW-UP VISIT 06/29/2019 12:00:00 A M EDT [place] - [facility], [facility] X-RAY EXAM OF KNEE 3 X-RAY EXAM OF KNEE 3 06/29/2019 12:00:00 AM ED T [place] - [facility], [facility] X-RAY EXAM OF KNEE 3 X-RAY EXAM OF KNEE 3 06/29/2019 12:00:00 AM ED T [place] - [facility], [facility] POSTOP FOLLOW-UP VISIT POSTOP FOLLOW-UP VISIT 06/29/2019 12:00:00 A M EDT [place] - [facility] X-Ray Knee Ap & Lateral W/Obliques Three Views 020 12:00:00 AM EDT [facility] ([facility]) OFFICE/OUTPATIENT VISIT EST OFFICE/OUTPATIENT VISIT EST 04/30 12:00:00 AM EDT [place] - [facility], [facility] OFFICE/OUTPATIENT VISIT EST OFFICE/OUTPATIENT VISIT EST 04/30 12:00:00 AM EDT [place] - [facility], [facility] X-RAY EXAM OF KNEE 3 X-RAY EXAM OF KNEE 3 05/16/2019 12:00:00 AM ED T [place] - [facility], [facility] OFFICE/OUTPATIENT VISIT EST OFFICE/OUTPATIENT VISIT EST 04/29 12:00:00 AM EDT [place] - [facility], [facility] X-RAY EXAM OF KNEE 3 X-RAY EXAM OF KNEE 3 05/16/2019 12:00:00 AM ED T [place] - [facility], [facility] OFFICE/OUTPATIENT VISIT EST OFFICE/OUTPATIENT VISIT EST 04/29 12:00:00 AM EDT [place] - [facility], [facility] X-RAY EXAM OF KNEE 3 X-RAY EXAM OF KNEE 3 05/16/2019 12:00:00 AM ED T [place] - [facility] X-RAY EXAM OF KNEE 3 X-RAY EXAM OF KNEE 3 05/16/2019 12:00:00 AM ED T [place] - [facility] X-RAY EXAM OF KNEE 3 X-RAY EXAM OF KNEE 3 05/16/2019 12:00:00 AM ED T [place] - [facility] RSV DNA/RNA AMP PROBE RSV DNA/RNA AMP PROBE 05/12/2019 12:00:00 AM EDT [place] - [facility] STREP A AG IA STREP A AG IA 05/12/2019 12:00:00 AM EDT [place] [facility] - [facility] EXTREMITY STUDY EXTREMITY STUDY 05/12/2019 12:00:00 AM EDT [place] [facility] - [facility] EMERGENCY DEPT VISIT EMERGENCY DEPT VISIT 05/12/2019 12:00:00 AM ED T [place] - [facility] INFLUENZA DNA AMP PROBE INFLUENZA DNA AMP PROBE 05/12/2019 12:00:00 AM EDT [place] - [facility] EMERGENCY DEPT VISIT EMERGENCY DEPT VISIT 05/12/2019 12:00:00 AM ED T [place] - [facility] RSV DNA/RNA AMP PROBE RSV DNA/RNA AMP PROBE 05/12/2019 12:00:00 AM EDT [place] - [facility] STREP A AG IA STREP A AG IA 05/12/2019 12:00:00 AM EDT [place] - [facility] INFLUENZA DNA AMP PROBE INFLUENZA DNA AMP PROBE 05/12/2019 12:00:00 AM EDT [place] [facility] - [facility] EXTREMITY STUDY EXTREMITY STUDY 05/12/2019 12:00:00 AM EDT [place] - [facility], [facility] STREP A AG IA STREP A AG IA 05/12/2019 12:00:00 AM EDT [place] - [facility] INFLUENZA DNA AMP PROBE INFLUENZA DNA AMP PROBE 05/12/2019 12:00:00 AM EDT [place] - [facility] EMERGENCY DEPT VISIT EMERGENCY DEPT VISIT 05/12/2019 12:00:00 AM ED T [place] - [facility] RSV DNA/RNA AMP PROBE RSV DNA/RNA AMP PROBE 05/12/2019 12:00:00 AM EDT [place] - [facility] EXTREMITY STUDY EXTREMITY STUDY 05/12/2019 12:00:00 AM EDT [place] [facility] - [facility] INFLUENZA DNA AMP PROBE INFLUENZA DNA AMP PROBE 05/12/2019 12:00:00 AM EDT [place] - [facility] EMERGENCY DEPT VISIT EMERGENCY DEPT VISIT 05/12/2019 12:00:00 AM ED T [place] [facility] - [facility] RSV DNA/RNA AMP PROBE RSV DNA/RNA AMP PROBE 05/12/2019 12:00:00 AM EDT [place] [facility] - [facility] STREP A AG IA STREP A AG IA 05/12/2019 12:00:00 AM EDT [place] - [facility] INFLUENZA DNA AMP PROBE INFLUENZA DNA AMP PROBE 05/12/2019 12:00:00 AM EDT [place] - [facility] EMERGENCY DEPT VISIT EMERGENCY DEPT VISIT 05/12/2019 12:00:00 AM ED T [place] - [facility] RSV DNA/RNA AMP PROBE RSV DNA/RNA AMP PROBE 05/12/2019 12:00:00 AM EDT [place] - [facility], [facility] STREP A AG IA STREP A AG IA 05/12/2019 12:00:00 AM EDT [place] [facility] - [facility], [facility] THERAPEUTIC EXERCISES THERAPEUTIC EXERCISES 05/09/2019 12:00:00 AM EDT [place] [facility] - [facility], [facility] THERAPEUTIC EXERCISES THERAPEUTIC EXERCISES 05/09/2019 12:00:00 AM EDT [place] [facility] - [facility], [facility] THERAPEUTIC EXERCISES THERAPEUTIC EXERCISES 05/09/2019 12:00:00 AM EDT [place] [facility] - [facility], [facility] Therapeutic, prophylactic, or diagnostic injection; Sub Cut/ IM 05/08/2019 12:00:00 AM EDT - 05/08/2019 12:00:[address] [facility] Toradol Inj Per 15 mg 05/08/2019 12:00:00 AM EDT - 05/08/2019 12:00:00 AM EDT [facility] Office/outpatient visit,est, mod 020 12:00:00 AM EDT - 05/08/2019 12:00:00 AM EDT [facility] THERAPEUTIC EXERCISES THERAPEUTIC EXERCISES 05/03/2019 12:00:00 AM EST [place] [facility] - [facility], [facility] THERAPEUTIC EXERCISES THERAPEUTIC EXERCISES 05/03/2019 12:00:00 AM EST [place] [facility] - [facility], [facility] THERAPEUTIC EXERCISES THERAPEUTIC EXERCISES 05/03/2019 12:00:00 AM EST [place] - [facility], [facility] OFFICE/OUTPATIENT VISIT EST OFFICE/OUTPATIENT VISIT EST 04/2019 12:00:00 AM EST [place] [facility] - [facility], [facility] OFFICE/OUTPATIENT VISIT EST OFFICE/OUTPATIENT VISIT EST 04/2019 12:00:00 AM EST [place] [facility] - [facility], [facility] ASSAY OF TROPONIN QUANT ASSAY OF TROPONIN QUANT 04/27/2019 12:00:00 AM EST [facility] CHORIONIC GONADOTROPIN ASSAY CHORIONIC GONADOTROPIN ASSAY 12:00:00 AM EST [facility] FIBRIN DEGRADATION QUANT FIBRIN DEGRADATION QUANT 04/27/2019 12:00: 00 AM EST [place] - [facility], [facility] COMPREHEN METABOLIC PANEL COMPREHEN METABOLIC PANEL 04/27/2019 1 2:00:00 AM EST [place] - [facility], [facility] EMERGENCY DEPT VISIT EMERGENCY DEPT VISIT 04/27/2019 12:00:00 AM ES T [place] - [facility], [facility] BLOOD COUNT COMPLETE AUTO&AUTO DIFRNTL WBC COUNT COMPLETE CB C W/AUTO DIFF WBC 04/27/2019 12:00:00 AM EST [place] [facility] - [facility] ELECTROCARDIOGRAM TRACING ELECTROCARDIOGRAM TRACING 04/27/2019 1 2:00:00 AM EST [place] - [facility], [facility] X-RAY EXAM CHEST 2 VIEWS X-RAY EXAM CHEST 2 VIEWS 04/27/2019 12:00: 00 AM EST [place] - [facility], [facility] ROUTINE VENIPUNCTURE ROUTINE VENIPUNCTURE 04/27/2019 12:00:00 AM ES T [place] - [facility], [facility] COMPREHEN METABOLIC PANEL COMPREHEN METABOLIC PANEL 04/27/2019 1 2:00:00 AM EST [place] - [facility], [facility] X-RAY EXAM CHEST 2 VIEWS X-RAY EXAM CHEST 2 VIEWS 04/27/2019 12:00: 00 AM EST [place] - [facility], [facility] FIBRIN DEGRADATION QUANT FIBRIN DEGRADATION QUANT 04/27/2019 12:00: 00 AM EST [place] - [facility], [facility] BLOOD COUNT COMPLETE AUTO&AUTO DIFRNTL WBC COUNT COMPLETE CB C W/AUTO DIFF WBC 04/27/2019 12:00:00 AM EST [place] [facility] - [facility], [facility] CHORIONIC GONADOTROPIN ASSAY CHORIONIC GONADOTROPIN ASSAY 12:00:00 AM EST [place] - [facility], [facility] EMERGENCY DEPT VISIT EMERGENCY DEPT VISIT 04/27/2019 12:00:00 AM ES T [place] [facility] - [facility] ROUTINE VENIPUNCTURE ROUTINE VENIPUNCTURE 04/27/2019 12:00:00 AM ES T [place] - [facility], [facility] ELECTROCARDIOGRAM TRACING ELECTROCARDIOGRAM TRACING 04/27/2019 1 2:00:00 AM EST [place] [facility] - [facility] [facility], [facility] ASSAY OF TROPONIN QUANT ASSAY OF TROPONIN QUANT 04/27/2019 12:00:00 AM EST [place] - [facility], [facility] ELECTROCARDIOGRAM TRACING ELECTROCARDIOGRAM TRACING 04/27/2019 1 2:00:00 AM EST [place] - [facility], [facility] BLOOD COUNT COMPLETE AUTO&AUTO DIFRNTL WBC COUNT COMPLETE CB C W/AUTO DIFF WBC 04/27/2019 12:00:00 AM EST [place] - [facility] EMERGENCY DEPT VISIT EMERGENCY DEPT VISIT 04/27/2019 12:00:00 AM ES T [place] - [facility], [facility] COMPREHEN METABOLIC PANEL COMPREHEN METABOLIC PANEL 04/27/2019 1 2:00:00 AM EST [place] - [facility], [facility] ROUTINE VENIPUNCTURE ROUTINE VENIPUNCTURE 04/27/2019 12:00:00 AM ES T [place] - [facility], [facility] CHORIONIC GONADOTROPIN ASSAY CHORIONIC GONADOTROPIN ASSAY 12:00:00 AM EST [place] - [facility], [facility] FIBRIN DEGRADATION QUANT FIBRIN DEGRADATION QUANT 04/27/2019 12:00: 00 AM EST [place] - [facility], [facility] X-RAY EXAM CHEST 2 VIEWS X-RAY EXAM CHEST 2 VIEWS 04/27/2019 12:00: 00 AM EST [place] - [facility], [facility] ASSAY OF TROPONIN QUANT ASSAY OF TROPONIN QUANT 04/27/2019 12:00:00 AM EST [place] - [facility], [facility] CHORIONIC GONADOTROPIN ASSAY CHORIONIC GONADOTROPIN ASSAY 12:00:00 AM EST [place] - [facility], [facility] COMPREHEN METABOLIC PANEL COMPREHEN METABOLIC PANEL 04/27/2019 1 2:00:00 AM EST [place] - [facility], [facility] BLOOD COUNT COMPLETE AUTO&AUTO DIFRNTL WBC COUNT COMPLETE CB C W/AUTO DIFF WBC 04/27/2019 12:00:00 AM EST [place] - [facility] FIBRIN DEGRADATION QUANT FIBRIN DEGRADATION QUANT 04/27/2019 12:00: 00 AM EST [place] - [facility], [facility] ASSAY OF TROPONIN QUANT ASSAY OF TROPONIN QUANT 04/27/2019 12:00:00 AM EST [place] - [facility], [facility] X-RAY EXAM CHEST 2 VIEWS X-RAY EXAM CHEST 2 VIEWS 04/27/2019 12:00: 00 AM EST [place] - [facility], [facility] ROUTINE VENIPUNCTURE ROUTINE VENIPUNCTURE 04/27/2019 12:00:00 AM ES T [place] - [facility], [facility] ELECTROCARDIOGRAM TRACING ELECTROCARDIOGRAM TRACING 04/27/2019 1 2:00:00 AM EST [place] - [facility], [facility] EMERGENCY DEPT VISIT EMERGENCY DEPT VISIT 04/27/2019 12:00:00 AM ES T [place] - [facility], [facility] COMPREHEN METABOLIC PANEL COMPREHEN METABOLIC PANEL 04/27/2019 1 2:00:00 AM EST [place] - [facility], [facility] ROUTINE VENIPUNCTURE ROUTINE VENIPUNCTURE 04/27/2019 12:00:00 AM ES T [place] - [facility], [facility] CHORIONIC GONADOTROPIN ASSAY CHORIONIC GONADOTROPIN ASSAY 12:00:00 AM EST [place] - [facility], [facility] X-RAY EXAM CHEST 2 VIEWS X-RAY EXAM CHEST 2 VIEWS 04/27/2019 12:00: 00 AM EST [place] - [facility], [facility] FIBRIN DEGRADATION QUANT FIBRIN DEGRADATION QUANT 04/27/2019 12:00: 00 AM EST [place] - [facility], [facility] ELECTROCARDIOGRAM TRACING ELECTROCARDIOGRAM TRACING 04/27/2019 1 2:00:00 AM EST [place] - [facility] ASSAY OF TROPONIN QUANT ASSAY OF TROPONIN QUANT 04/27/2019 12:00:00 AM EST [place] - [facility] EMERGENCY DEPT VISIT EMERGENCY DEPT VISIT 04/27/2019 12:00:00 AM ES T [place] - [facility] BLOOD COUNT COMPLETE AUTO&AUTO DIFRNTL WBC COUNT COMPLETE CB C W/AUTO DIFF WBC 04/27/2019 12:00:00 AM EST [place] - [facility] X-RAY EXAM OF KNEE 1 OR 2 X-RAY EXAM OF KNEE 1 OR 2 04/24/2019 1 2:00:00 AM EST [place] - [facility] POSTOP FOLLOW-UP VISIT POSTOP FOLLOW-UP VISIT 04/24/2019 12:00:00 A M EST [place] - [facility] X-RAY EXAM OF KNEE 1 OR 2 X-RAY EXAM OF KNEE 1 OR 2 04/24/2019 1 2:00:00 AM EST [place] - [facility] POSTOP FOLLOW-UP VISIT POSTOP FOLLOW-UP VISIT 04/24/2019 12:00:00 A M EST [place] - [facility] X-Ray Knee Ap & Lateral 04/24/2019 12:00:00 AM EST [facility] ([facility]) X-RAY EXAM OF KNEE 1 OR 2 X-RAY EXAM OF KNEE 1 OR 2 04/24/2019 1 2:00:00 AM EST [place] - [facility] POSTOP FOLLOW-UP VISIT POSTOP FOLLOW-UP VISIT 04/24/2019 12:00:00 A M EST [place] - [facility] X-RAY EXAM OF KNEE 1 OR 2 X-RAY EXAM OF KNEE 1 OR 2 04/24/2019 1 2:00:00 AM EST [place] - [facility] POSTOP FOLLOW-UP VISIT POSTOP FOLLOW-UP VISIT 04/24/2019 12:00:00 A M EST [place] - [facility], [facility] POSTOP FOLLOW-UP VISIT POSTOP FOLLOW-UP VISIT 04/24/2019 12:00:00 A M EST [place] - [facility], [facility] X-RAY EXAM OF KNEE 1 OR 2 X-RAY EXAM OF KNEE 1 OR 2 04/24/2019 1 2:00:00 AM EST [place] - [facility], [facility] Reposition Left Knee Joint, Open Approach Reposition L eft Knee Joint, Open Approach 04/10/2019 12:00:00 AM EST [place] - [facility], [facility] REVISION OF UNSTABLE KNEECAP REVISION OF UNSTABLE KNEECAP 12:00:00 AM EST [place] - [facility], [facility] left knee reconstruction left knee reconstruction 04/10/2019 12:00: 00 AM EST [place] - [facility], [facility] RECONSTRUCTION KNEE RECONSTRUCTION KNEE 04/10/2019 12:00:00 AM EST [place] - [facility], [facility] REVISION OF UNSTABLE KNEECAP REVISION OF UNSTABLE KNEECAP 12:00:00 AM EST [place] - [facility], [facility] Reposition Left Knee Joint, Open Approach Reposition L eft Knee Joint, Open Approach 04/10/2019 12:00:00 AM EST [place] - [facility], [facility] RECONSTRUCTION KNEE RECONSTRUCTION KNEE 04/10/2019 12:00:00 AM EST [place] - [facility], [facility] REVISION OF UNSTABLE KNEECAP REVISION OF UNSTABLE KNEECAP 12:00:00 AM EST [place] - [facility], [facility] left knee reconstruction left knee reconstruction 04/10/2019 12:00: 00 AM EST [place] - [facility], [facility] REVISION OF UNSTABLE KNEECAP REVISION OF UNSTABLE KNEECAP 12:00:00 AM EST [place] - [facility] Reconstruct Patella W/Extensor Realignment/Muscle Advance/Re lease 04/10/2019 12:00:00 AM EST [facility] ([facility]) Reconstruct Patella W/Extensor Realignment/Muscle Advance/Re lease 04/10/2019 12:00:00 AM EST [facility] ([facility]) left knee reconstruction left knee reconstruction 04/10/2019 12:00: 00 AM EST [place] - [facility], [facility] REVISION OF UNSTABLE KNEECAP REVISION OF UNSTABLE KNEECAP 12:00:00 AM EST [place] - [facility], [facility] RECONSTRUCTION KNEE RECONSTRUCTION KNEE 04/10/2019 12:00:00 AM EST [place] - [facility], [facility] REVISION OF UNSTABLE KNEECAP REVISION OF UNSTABLE KNEECAP 12:00:00 AM EST [place] - [facility] Reposition Left Knee Joint, Open Approach Reposition L eft Knee Joint, Open Approach 04/10/2019 12:00:00 AM EST [place] - [facility], [facility] REVISION OF UNSTABLE KNEECAP REVISION OF UNSTABLE KNEECAP 12:00:00 AM EST [place] - [facility], [facility] RECONSTRUCTION KNEE RECONSTRUCTION KNEE 04/10/2019 12:00:00 AM EST [place] - [facility] REVISION OF UNSTABLE KNEECAP REVISION OF UNSTABLE KNEECAP 12:00:00 AM EST [place] - [facility] left knee reconstruction left knee reconstruction 04/10/2019 12:00: 00 AM EST [place] - [facility] Reposition Left Knee Joint, Open Approach Reposition L eft Knee Joint, Open Approach 04/10/2019 12:00:00 AM EST [place] - [facility] left knee reconstruction left knee reconstruction 04/10/2019 12:00: 00 AM EST [place] - [facility] REVISION OF UNSTABLE KNEECAP REVISION OF UNSTABLE KNEECAP 12:00:00 AM EST [place] - [facility], [facility] REVISION OF UNSTABLE KNEECAP REVISION OF UNSTABLE KNEECAP 12:00:00 AM EST [place] - [facility] Reposition Left Knee Joint, Open Approach Reposition L eft Knee Joint, Open Approach 04/10/2019 12:00:00 AM EST [place] - [facility], [facility] RECONSTRUCTION KNEE RECONSTRUCTION KNEE 04/10/2019 12:00:00 AM EST [place] - [facility], [facility] REVISION OF UNSTABLE KNEECAP REVISION OF UNSTABLE KNEECAP 12:00:00 AM EST [place] - [facility], [facility] REVISION OF UNSTABLE KNEECAP REVISION OF UNSTABLE KNEECAP 12:00:00 AM EST [place] - [facility] Reposition Left Knee Joint, Open Approach Reposition L eft Knee Joint, Open Approach 04/10/2019 12:00:00 AM EST [place] - [facility], [facility] RECONSTRUCTION KNEE RECONSTRUCTION KNEE 04/10/2019 12:00:00 AM EST [place] - [facility] OFFICE/OUTPATIENT VISIT EST OFFICE/OUTPATIENT VISIT EST 05/2019 12:00:00 AM EST [place] - [facility] OFFICE/OUTPATIENT VISIT EST OFFICE/OUTPATIENT VISIT EST 05/2019 12:00:00 AM EST [place] - [facility] OFFICE/OUTPATIENT VISIT EST OFFICE/OUTPATIENT VISIT EST 05/2019 12:00:00 AM EST [place] - [facility] OFFICE/OUTPATIENT VISIT EST OFFICE/OUTPATIENT VISIT EST 05/2019 12:00:00 AM EST [place] - [facility], [facility] OFFICE/OUTPATIENT VISIT EST OFFICE/OUTPATIENT VISIT EST 05/2019 12:00:00 AM EST [place] - [facility], [facility] OFFICE/OUTPATIENT VISIT EST OFFICE/OUTPATIENT VISIT EST 05/2019 12:00:00 AM EST [place] - [facility], [facility] ONDANSETRON HCL INJECTION ONDANSETRON HCL INJECTION 04/03/2019 1 2:00:00 AM EST [place] - [facility], [facility] URINE CULTURE/COLONY COUNT URINE CULTURE/COLONY COUNT 2019 12:00:00 AM EST [place] - [facility], [facility] C-REACTIVE PROTEIN C-REACTIVE PROTEIN 04/03/2019 12:00:00 AM EST [place] - [facility], [facility] EMERGENCY DEPT VISIT EMERGENCY DEPT VISIT 04/03/2019 12:00:00 AM ES T [place] - [facility], [facility] CT ABD & PELVIS W/O CONTRAST CT ABD & PELVIS W/O CONTRAST 12:00:00 AM EST [place] - [facility], [facility] THER/PROPH/DIAG INJ IV PUSH THER/PROPH/DIAG INJ IV PUSH 04/2019 12:00:00 AM EST [place] - [facility], [facility] ASSAY OF LIPASE ASSAY OF LIPASE 04/03/2019 12:00:00 AM EST [place] - [facility] BLOOD COUNT COMPLETE AUTO&AUTO DIFRNTL WBC COUNT COMPLETE CB C W/AUTO DIFF WBC 04/03/2019 12:00:00 AM EST [place] - [facility] ROUTINE VENIPUNCTURE ROUTINE VENIPUNCTURE 04/03/2019 12:00:00 AM ES T [place] - [facility] COMPREHEN METABOLIC PANEL COMPREHEN METABOLIC PANEL 04/03/2019 1 2:00:00 AM EST [place] - [facility], [facility] URINALYSIS AUTO W/SCOPE URINALYSIS AUTO W/SCOPE 04/03/2019 12:00:00 AM EST [place] - [facility], [facility] CHORIONIC GONADOTROPIN ASSAY CHORIONIC GONADOTROPIN ASSAY 12:00:00 AM EST [place] - [facility], [facility] Catheterize for urine spec Catheterize for urine spec 2019 12:00:00 AM EST [place] - [facility], [facility] URINALYSIS AUTO W/SCOPE URINALYSIS AUTO W/SCOPE 04/03/2019 12:00:00 AM EST [place] - [facility], [facility] EMERGENCY DEPT VISIT EMERGENCY DEPT VISIT 04/03/2019 12:00:00 AM ES T [place] - [facility], [facility] ONDANSETRON HCL INJECTION ONDANSETRON HCL INJECTION 04/03/2019 1 2:00:00 AM EST [place] - [facility], [facility] URINE CULTURE/COLONY COUNT URINE CULTURE/COLONY COUNT 2019 12:00:00 AM EST [place] - [facility], [facility] C-REACTIVE PROTEIN C-REACTIVE PROTEIN 04/03/2019 12:00:00 AM EST [place] - [facility] ROUTINE VENIPUNCTURE ROUTINE VENIPUNCTURE 04/03/2019 12:00:00 AM ES T [place] - [facility], [facility] CHORIONIC GONADOTROPIN ASSAY CHORIONIC GONADOTROPIN ASSAY 12:00:00 AM EST [place] - [facility] Catheterize for urine spec Catheterize for urine spec 2019 12:00:00 AM EST [place] - [facility] BLOOD COUNT COMPLETE AUTO&AUTO DIFRNTL WBC COUNT COMPLETE CB C W/AUTO DIFF WBC 04/03/2019 12:00:00 AM EST [place] - [facility] COMPREHEN METABOLIC PANEL COMPREHEN METABOLIC PANEL 04/03/2019 1 2:00:00 AM EST [place] - [facility] CT ABD & PELVIS W/O CONTRAST CT ABD & PELVIS W/O CONTRAST 12:00:00 AM EST [place] - [facility], [facility] THER/PROPH/DIAG INJ IV PUSH THER/PROPH/DIAG INJ IV PUSH 04/2019 12:00:00 AM EST [place] - [facility], [facility] ASSAY OF LIPASE ASSAY OF LIPASE 04/03/2019 12:00:00 AM EST [place] - [facility], [facility] THER/PROPH/DIAG INJ IV PUSH THER/PROPH/DIAG INJ IV PUSH 04/2019 12:00:00 AM EST [place] - [facility], [facility] BLOOD COUNT COMPLETE AUTO&AUTO DIFRNTL WBC COUNT COMPLETE CB C W/AUTO DIFF WBC 04/03/2019 12:00:00 AM EST [place] - [facility], [facility] CHORIONIC GONADOTROPIN ASSAY CHORIONIC GONADOTROPIN ASSAY 12:00:00 AM EST [place] - [facility], [facility] Catheterize for urine spec Catheterize for urine spec 2019 12:00:00 AM EST [place] - [facility], [facility] ASSAY OF LIPASE ASSAY OF LIPASE 04/03/2019 12:00:00 AM EST [place] - [facility], [facility] URINE CULTURE/COLONY COUNT URINE CULTURE/COLONY COUNT 2019 12:00:00 AM EST [place] - [facility], [facility] URINALYSIS AUTO W/SCOPE URINALYSIS AUTO W/SCOPE 04/03/2019 12:00:00 AM EST [place] - [facility], [facility] C-REACTIVE PROTEIN C-REACTIVE PROTEIN 04/03/2019 12:00:00 AM EST [place] - [facility], [facility] ROUTINE VENIPUNCTURE ROUTINE VENIPUNCTURE 04/03/2019 12:00:00 AM ES T [place] - [facility], [facility] ONDANSETRON HCL INJECTION ONDANSETRON HCL INJECTION 04/03/2019 1 2:00:00 AM EST [place] - [facility] COMPREHEN METABOLIC PANEL COMPREHEN METABOLIC PANEL 04/03/2019 1 2:00:00 AM EST [place] - [facility] CT ABD & PELVIS W/O CONTRAST CT ABD & PELVIS W/O CONTRAST 12:00:00 AM EST [place] - [facility] EMERGENCY DEPT VISIT EMERGENCY DEPT VISIT 04/03/2019 12:00:00 AM ES T [place] [facility], [facility] BLOOD COUNT COMPLETE AUTO&AUTO DIFRNTL WBC COUNT COMPLETE CB C W/AUTO DIFF WBC 04/03/2019 12:00:00 AM EST [place] - [facility] ONDANSETRON HCL INJECTION ONDANSETRON HCL INJECTION 04/03/2019 1 2:00:00 AM EST [place] - [facility] URINE CULTURE/COLONY COUNT URINE CULTURE/COLONY COUNT 2019 12:00:00 AM EST [place] - [facility], [facility] C-REACTIVE PROTEIN C-REACTIVE PROTEIN 04/03/2019 12:00:00 AM EST [place] - [facility], [facility] CHORIONIC GONADOTROPIN ASSAY CHORIONIC GONADOTROPIN ASSAY 12:00:00 AM EST [place] - [facility], [facility] ASSAY OF LIPASE ASSAY OF LIPASE 04/03/2019 12:00:00 AM EST [place] - [facility] THER/PROPH/DIAG INJ IV PUSH THER/PROPH/DIAG INJ IV PUSH 04/2019 12:00:00 AM EST [place] - [facility] Catheterize for urine spec Catheterize for urine spec 2019 12:00:00 AM EST [place] - [facility], [facility] COMPREHEN METABOLIC PANEL COMPREHEN METABOLIC PANEL 04/03/2019 1 2:00:00 AM EST [place] - [facility] URINALYSIS AUTO W/SCOPE URINALYSIS AUTO W/SCOPE 04/03/2019 12:00:00 AM EST [place] - [facility], [facility] ROUTINE VENIPUNCTURE ROUTINE VENIPUNCTURE 04/03/2019 12:00:00 AM ES T [place] - [facility], [facility] EMERGENCY DEPT VISIT EMERGENCY DEPT VISIT 04/03/2019 12:00:00 AM ES T [place] - [facility], [facility] CT ABD & PELVIS W/O CONTRAST CT ABD & PELVIS W/O CONTRAST 12:00:00 AM EST [place] - [facility], [facility] BLOOD COUNT COMPLETE AUTO&AUTO DIFRNTL WBC COUNT COMPLETE CB C W/AUTO DIFF WBC 04/03/2019 12:00:00 AM EST [place] - [facility] ROUTINE VENIPUNCTURE ROUTINE VENIPUNCTURE 04/03/2019 12:00:00 AM ES T [place] - [facility], [facility] COMPREHEN METABOLIC PANEL COMPREHEN METABOLIC PANEL 04/03/2019 1 2:00:00 AM EST [place] - [facility], [facility] CT ABD & PELVIS W/O CONTRAST CT ABD & PELVIS W/O CONTRAST 12:00:00 AM EST [place] - [facility], [facility] URINALYSIS AUTO W/SCOPE URINALYSIS AUTO W/SCOPE 04/03/2019 12:00:00 AM EST [place] - [facility], [facility] C-REACTIVE PROTEIN C-REACTIVE PROTEIN 04/03/2019 12:00:00 AM EST [place] - [facility], [facility] ASSAY OF LIPASE ASSAY OF LIPASE 04/03/2019 12:00:00 AM EST [place] - [facility], [facility] Catheterize for urine spec Catheterize for urine spec 2019 12:00:00 AM EST [place] - [facility], [facility] ONDANSETRON HCL INJECTION ONDANSETRON HCL INJECTION 04/03/2019 1 2:00:00 AM EST [place] - [facility] URINE CULTURE/COLONY COUNT URINE CULTURE/COLONY COUNT 2019 12:00:00 AM EST [place] - [facility], [facility] THER/PROPH/DIAG INJ IV PUSH THER/PROPH/DIAG INJ IV PUSH 0 04/2019 12:00:00 AM EST [place] - [facility] CHORIONIC GONADOTROPIN ASSAY CHORIONIC GONADOTROPIN ASSAY 12:00:00 AM EST [place] - [facility], [facility] EMERGENCY DEPT VISIT EMERGENCY DEPT VISIT 04/03/2019 12:00:00 AM ES T [place] - [facility], [facility] THER/PROPH/DIAG INJ IV PUSH THER/PROPH/DIAG INJ IV PUSH 04/2019 12:00:00 AM EST [place] - [facility] C-REACTIVE PROTEIN C-REACTIVE PROTEIN 04/03/2019 12:00:00 AM EST [place] - [facility], [facility] COMPREHEN METABOLIC PANEL COMPREHEN METABOLIC PANEL 04/03/2019 1 2:00:00 AM EST [place] [facility] [facility] ROUTINE VENIPUNCTURE ROUTINE VENIPUNCTURE 04/03/2019 12:00:00 AM ES T [place] [facility] URINALYSIS AUTO W/SCOPE URINALYSIS AUTO W/SCOPE 04/03/2019 12:00:00 AM EST [place] [facility] BLOOD COUNT COMPLETE AUTO&AUTO DIFRNTL WBC COUNT COMPLETE CB C W/AUTO DIFF WBC 04/03/2019 12:00:00 AM EST [place] [facility], [facility] EMERGENCY DEPT VISIT EMERGENCY DEPT VISIT 04/03/2019 12:00:00 AM ES T [place] [facility] ONDANSETRON HCL INJECTION ONDANSETRON HCL INJECTION 04/03/2019 1 2:00:00 AM EST [place] [facility], [facility] CHORIONIC GONADOTROPIN ASSAY CHORIONIC GONADOTROPIN ASSAY 12:00:00 AM EST [place] [facility], [facility] URINE CULTURE/COLONY COUNT URINE CULTURE/COLONY COUNT 2019 12:00:00 AM EST [place] [facility], [facility] Catheterize for urine spec Catheterize for urine spec 2019 12:00:00 AM EST [place] [facility], [facility] CT ABD & PELVIS W/O CONTRAST CT ABD & PELVIS W/O CONTRAST 12:00:00 AM EST [place] [facility], [facility] ASSAY OF LIPASE ASSAY OF LIPASE 04/03/2019 12:00:00 AM EST [place] [facility], [facility] C-REACTIVE PROTEIN C-REACTIVE PROTEIN 04/03/2019 12:00:00 AM EST [place] [facility], [facility] Catheterize for urine spec Catheterize for urine spec 2019 12:00:00 AM EST [place] [facility], [facility] BLOOD COUNT COMPLETE AUTO&AUTO DIFRNTL WBC COUNT COMPLETE CB C W/AUTO DIFF WBC 04/03/2019 12:00:00 AM EST [place] [facility], [facility] COMPREHEN METABOLIC PANEL COMPREHEN METABOLIC PANEL 04/03/2019 1 2:00:00 AM EST [place] [facility], [facility] CHORIONIC GONADOTROPIN ASSAY CHORIONIC GONADOTROPIN ASSAY 12:00:00 AM EST [place] [facility], [facility] ONDANSETRON HCL INJECTION ONDANSETRON HCL INJECTION 04/03/2019 1 2:00:00 AM EST [place] [facility], [facility] URINE CULTURE/COLONY COUNT URINE CULTURE/COLONY COUNT 2019 12:00:00 AM EST [place] [facility], [facility] CT ABD & PELVIS W/O CONTRAST CT ABD & PELVIS W/O CONTRAST 12:00:00 AM EST [place] [facility] ROUTINE VENIPUNCTURE ROUTINE VENIPUNCTURE 04/03/2019 12:00:00 AM ES T [place] [facility], [facility] EMERGENCY DEPT VISIT EMERGENCY DEPT VISIT 04/03/2019 12:00:00 AM ES T [place] [facility], [facility] URINALYSIS AUTO W/SCOPE URINALYSIS AUTO W/SCOPE 04/03/2019 12:00:00 AM EST [place] [facility], [facility] THER/PROPH/DIAG INJ IV PUSH THER/PROPH/DIAG INJ IV PUSH 04/2019 12:00:00 AM EST [place] [facility], [facility] ASSAY OF LIPASE ASSAY OF LIPASE 04/03/2019 12:00:00 AM EST [place] [facility], [facility] URINE CULTURE/COLONY COUNT URINE CULTURE/COLONY COUNT 2019 12:00:00 AM EST [place] [facility], [facility] OFFICE/OUTPATIENT VISIT EST OFFICE/OUTPATIENT VISIT EST 03/02 12:00:00 AM EST [place] [facility], [facility] OFFICE/OUTPATIENT VISIT EST OFFICE/OUTPATIENT VISIT EST 03/02 12:00:00 AM EST [place] [facility] URINE CULTURE/COLONY COUNT URINE CULTURE/COLONY COUNT 2019 12:00:00 AM EST [place] [facility], [facility] URINE CULTURE/COLONY COUNT URINE CULTURE/COLONY COUNT 2019 12:00:00 AM EST [place] [facility], [facility] URINE CULTURE/COLONY COUNT URINE CULTURE/COLONY COUNT 2019 12:00:00 AM EST [place] [facility], [facility] URINE CULTURE/COLONY COUNT URINE CULTURE/COLONY COUNT 2019 12:00:00 AM EST [place] [facility], [facility] URINE CULTURE/COLONY COUNT URINE CULTURE/COLONY COUNT 2019 12:00:00 AM EST [place] [facility], [facility] URINE CULTURE/COLONY COUNT URINE CULTURE/COLONY COUNT 2019 12:00:00 AM EST [place] [facility], [facility] URINE CULTURE/COLONY COUNT URINE CULTURE/COLONY COUNT 2019 12:00:00 AM EST [place] [facility], [facility] URINE CULTURE/COLONY COUNT URINE CULTURE/COLONY COUNT 2019 12:00:00 AM EST [place] [facility], [facility] CHORIONIC GONADOTROPIN ASSAY CHORIONIC GONADOTROPIN ASSAY 12:00:00 AM EST [place] [facility], [facility] ASSAY OF AMYLASE ASSAY OF AMYLASE 02/18/2019 12:00:00 AM EST [place] [facility], [facility] COMPREHEN METABOLIC PANEL COMPREHEN METABOLIC PANEL 02/18/2019 1 2:00:00 AM EST [place] [facility], [facility] EMERGENCY DEPT VISIT EMERGENCY DEPT VISIT 02/18/2019 12:00:00 AM ES T [place] [facility], [facility] CT ABD & PELV W/CONTRAST CT ABD & PELV W/CONTRAST 02/18/2019 12:00: 00 AM EST [place] [facility], [facility] THROMBOPLASTIN TIME PARTIAL THROMBOPLASTIN TIME PARTIAL 01/30 12:00:00 AM EST [place] [facility], [facility] TRANSVAGINAL US NON-OB TRANSVAGINAL US NON-OB 02/18/2019 12:00:00 A M EST [place] [facility], [facility] BLOOD COUNT COMPLETE AUTO&AUTO DIFRNTL WBC COUNT COMPLETE CB C W/AUTO DIFF WBC 02/18/2019 12:00:00 AM EST [place] [facility] C-REACTIVE PROTEIN C-REACTIVE PROTEIN 02/18/2019 12:00:00 AM EST [place] [facility] KETOROLAC TROMETHAMINE INJ KETOROLAC TROMETHAMINE INJ 2018 12:00:00 AM EST [place] [facility] ROUTINE VENIPUNCTURE ROUTINE VENIPUNCTURE 02/18/2019 12:00:00 AM ES T [place] [facility] ROUTINE VENIPUNCTURE ROUTINE VENIPUNCTURE 02/18/2019 12:00:00 AM ES T [place] [facility] THER/PROPH/DIAG INJ IV PUSH THER/PROPH/DIAG INJ IV PUSH 01/30 12:00:00 AM EST [place] [facility], [facility] ASSAY OF LIPASE ASSAY OF LIPASE 02/18/2019 12:00:00 AM EST [place] [facility] EMERGENCY DEPT VISIT EMERGENCY DEPT VISIT 02/18/2019 12:00:00 AM ES T [place] [facility] C-REACTIVE PROTEIN C-REACTIVE PROTEIN 02/18/2019 12:00:00 AM EST [place] [facility] THROMBOPLASTIN TIME PARTIAL THROMBOPLASTIN TIME PARTIAL 01/30 12:00:00 AM EST [place] [facility] KETOROLAC TROMETHAMINE INJ KETOROLAC TROMETHAMINE INJ 2018 12:00:00 AM EST [place] [facility] ROUTINE VENIPUNCTURE ROUTINE VENIPUNCTURE 02/18/2019 12:00:00 AM ES T [place] [facility] CHORIONIC GONADOTROPIN ASSAY CHORIONIC GONADOTROPIN ASSAY 12:00:00 AM EST [place] [facility] ASSAY OF LIPASE ASSAY OF LIPASE 02/18/2019 12:00:00 AM EST [place] [facility] COMPREHEN METABOLIC PANEL COMPREHEN METABOLIC PANEL 02/18/2019 1 2:00:00 AM EST [place] [facility], [facility] BLOOD COUNT COMPLETE AUTO&AUTO DIFRNTL WBC COUNT COMPLETE CB C W/AUTO DIFF WBC 02/18/2019 12:00:00 AM EST [place] [facility], [facility] THER/PROPH/DIAG INJ IV PUSH THER/PROPH/DIAG INJ IV PUSH 01/30 12:00:00 AM EST [place] [facility], [facility] CT ABD & PELV W/CONTRAST CT ABD & PELV W/CONTRAST 02/18/2019 12:00: 00 AM EST [place] [facility], [facility] TRANSVAGINAL US NON-OB TRANSVAGINAL US NON-OB 02/18/2019 12:00:00 A M EST [place] [facility], [facility] ASSAY OF AMYLASE ASSAY OF AMYLASE 02/18/2019 12:00:00 AM EST [place] [facility], [facility] ROUTINE VENIPUNCTURE ROUTINE VENIPUNCTURE 02/18/2019 12:00:00 AM ES T [place] [facility], [facility] THROMBOPLASTIN TIME PARTIAL THROMBOPLASTIN TIME PARTIAL 01/30 12:00:00 AM EST [place] [facility], [facility] KETOROLAC TROMETHAMINE INJ KETOROLAC TROMETHAMINE INJ 2018 12:00:00 AM EST [place] [facility], [facility] ROUTINE VENIPUNCTURE ROUTINE VENIPUNCTURE 02/18/2019 12:00:00 AM ES T [place] [facility], [facility] THER/PROPH/DIAG INJ IV PUSH THER/PROPH/DIAG INJ IV PUSH 01/30 12:00:00 AM EST [place] [facility], [facility] CHORIONIC GONADOTROPIN ASSAY CHORIONIC GONADOTROPIN ASSAY 12:00:00 AM EST [place] [facility], [facility] TRANSVAGINAL US NON-OB TRANSVAGINAL US NON-OB 02/18/2019 12:00:00 A M EST [place] [facility], [facility] BLOOD COUNT COMPLETE AUTO&AUTO DIFRNTL WBC COUNT COMPLETE CB C W/AUTO DIFF WBC 02/18/2019 12:00:00 AM EST [place] [facility] ROUTINE VENIPUNCTURE ROUTINE VENIPUNCTURE 02/18/2019 12:00:00 AM ES T [place] [facility], [facility] EMERGENCY DEPT VISIT EMERGENCY DEPT VISIT 02/18/2019 12:00:00 AM ES T [place] [facility], [facility] ASSAY OF LIPASE ASSAY OF LIPASE 02/18/2019 12:00:00 AM EST [place] [facility], [facility] CT ABD & PELV W/CONTRAST CT ABD & PELV W/CONTRAST 02/18/2019 12:00: 00 AM EST [place] [facility], [facility] COMPREHEN METABOLIC PANEL COMPREHEN METABOLIC PANEL 02/18/2019 1 2:00:00 AM EST [place] [facility], [facility] ASSAY OF AMYLASE ASSAY OF AMYLASE 02/18/2019 12:00:00 AM EST [place] [facility], [facility] C-REACTIVE PROTEIN C-REACTIVE PROTEIN 02/18/2019 12:00:00 AM EST [place] [facility] ROUTINE VENIPUNCTURE ROUTINE VENIPUNCTURE 02/18/2019 12:00:00 AM ES T [place] [facility], [facility] COMPREHEN METABOLIC PANEL COMPREHEN METABOLIC PANEL 02/18/2019 1 2:00:00 AM EST [place] [facility], [facility] CHORIONIC GONADOTROPIN ASSAY CHORIONIC GONADOTROPIN ASSAY 12:00:00 AM EST [place] [facility] ROUTINE VENIPUNCTURE ROUTINE VENIPUNCTURE 02/18/2019 12:00:00 AM ES T [place] [facility], [facility] C-REACTIVE PROTEIN C-REACTIVE PROTEIN 02/18/2019 12:00:00 AM EST [place] [facility], [facility] ASSAY OF LIPASE ASSAY OF LIPASE 02/18/2019 12:00:00 AM EST [place] [facility], [facility] ASSAY OF AMYLASE ASSAY OF AMYLASE 02/18/2019 12:00:00 AM EST [place] [facility], [facility] THER/PROPH/DIAG INJ IV PUSH THER/PROPH/DIAG INJ IV PUSH 01/30 12:00:00 AM EST [place] [facility], [facility] KETOROLAC TROMETHAMINE INJ KETOROLAC TROMETHAMINE INJ 2018 12:00:00 AM EST [place] [facility], [facility] CT ABD & PELV W/CONTRAST CT ABD & PELV W/CONTRAST 02/18/2019 12:00: 00 AM EST [place] [facility], [facility] EMERGENCY DEPT VISIT EMERGENCY DEPT VISIT 02/18/2019 12:00:00 AM ES T [place] [facility], [facility] THROMBOPLASTIN TIME PARTIAL THROMBOPLASTIN TIME PARTIAL 01/30 12:00:00 AM EST [place] [facility], [facility] BLOOD COUNT COMPLETE AUTO&AUTO DIFRNTL WBC COUNT COMPLETE CB C W/AUTO DIFF WBC 02/18/2019 12:00:00 AM EST [place] [facility] TRANSVAGINAL US NON-OB TRANSVAGINAL US NON-OB 02/18/2019 12:00:00 A M EST [place] [facility], [facility] THROMBOPLASTIN TIME PARTIAL THROMBOPLASTIN TIME PARTIAL 01/30 12:00:00 AM EST [place] [facility], [facility] CHORIONIC GONADOTROPIN ASSAY CHORIONIC GONADOTROPIN ASSAY 12:00:00 AM EST [place] [facility] ROUTINE VENIPUNCTURE ROUTINE VENIPUNCTURE 02/18/2019 12:00:00 AM ES T [place] [facility], [facility] ROUTINE VENIPUNCTURE ROUTINE VENIPUNCTURE 02/18/2019 12:00:00 AM ES T [place] [facility], [facility] ASSAY OF AMYLASE ASSAY OF AMYLASE 02/18/2019 12:00:00 AM EST [place] [facility] BLOOD COUNT COMPLETE AUTO&AUTO DIFRNTL WBC COUNT COMPLETE CB C W/AUTO DIFF WBC 02/18/2019 12:00:00 AM EST [place] [facility] THER/PROPH/DIAG INJ IV PUSH THER/PROPH/DIAG INJ IV PUSH 01/30 12:00:00 AM EST [place] [facility], [facility] ASSAY OF LIPASE ASSAY OF LIPASE 02/18/2019 12:00:00 AM EST [place] [facility], [facility] C-REACTIVE PROTEIN C-REACTIVE PROTEIN 02/18/2019 12:00:00 AM EST [place] [facility] CT ABD & PELV W/CONTRAST CT ABD & PELV W/CONTRAST 02/18/2019 12:00: 00 AM EST [place] [facility] TRANSVAGINAL US NON-OB TRANSVAGINAL US NON-OB 02/18/2019 12:00:00 A M EST [place] [facility] COMPREHEN METABOLIC PANEL COMPREHEN METABOLIC PANEL 02/18/2019 1 2:00:00 AM EST [place] [facility] KETOROLAC TROMETHAMINE INJ KETOROLAC TROMETHAMINE INJ 2018 12:00:00 AM EST [place] [facility] EMERGENCY DEPT VISIT EMERGENCY DEPT VISIT 02/18/2019 12:00:00 AM ES T [place] [facility], [facility] EMERGENCY DEPT VISIT EMERGENCY DEPT VISIT 02/18/2019 12:00:00 AM ES T [place] [facility], [facility] COMPREHEN METABOLIC PANEL COMPREHEN METABOLIC PANEL 02/18/2019 1 2:00:00 AM EST [place] [facility], [facility] TRANSVAGINAL US NON-OB TRANSVAGINAL US NON-OB 02/18/2019 12:00:00 A M EST [place] [facility] KETOROLAC TROMETHAMINE INJ KETOROLAC TROMETHAMINE INJ 2018 12:00:00 AM EST [place] [facility], [facility] ROUTINE VENIPUNCTURE ROUTINE VENIPUNCTURE 02/18/2019 12:00:00 AM ES T [place] [facility], [facility] CHORIONIC GONADOTROPIN ASSAY CHORIONIC GONADOTROPIN ASSAY 12:00:00 AM EST [place] [facility], [facility] ASSAY OF LIPASE ASSAY OF LIPASE 02/18/2019 12:00:00 AM EST [place] [facility], [facility] THER/PROPH/DIAG INJ IV PUSH THER/PROPH/DIAG INJ IV PUSH 01/30 12:00:00 AM EST [place] [facility], [facility] ASSAY OF AMYLASE ASSAY OF AMYLASE 02/18/2019 12:00:00 AM EST [place] [facility] BLOOD COUNT COMPLETE AUTO&AUTO DIFRNTL WBC COUNT COMPLETE CB C W/AUTO DIFF WBC 02/18/2019 12:00:00 AM EST [place] [facility] C-REACTIVE PROTEIN C-REACTIVE PROTEIN 02/18/2019 12:00:00 AM EST [place] [facility] ROUTINE VENIPUNCTURE ROUTINE VENIPUNCTURE 02/18/2019 12:00:00 AM ES T [place] [facility] CT ABD & PELV W/CONTRAST CT ABD & PELV W/CONTRAST 02/18/2019 12:00: 00 AM EST [place] [facility] THROMBOPLASTIN TIME PARTIAL THROMBOPLASTIN TIME PARTIAL 01/30 12:00:00 AM EST [place] [facility] ASSAY OF AMYLASE ASSAY OF AMYLASE 02/18/2019 12:00:00 AM EST [place] [facility] ROUTINE VENIPUNCTURE ROUTINE VENIPUNCTURE 02/18/2019 12:00:00 AM ES T [place] [facility] COMPREHEN METABOLIC PANEL COMPREHEN METABOLIC PANEL 02/18/2019 1 2:00:00 AM EST [place] [facility] BLOOD COUNT COMPLETE AUTO&AUTO DIFRNTL WBC COUNT COMPLETE CB C W/AUTO DIFF WBC 02/18/2019 12:00:00 AM EST [place] [facility] THER/PROPH/DIAG INJ IV PUSH THER/PROPH/DIAG INJ IV PUSH 01/30 12:00:00 AM EST [place] [facility] CHORIONIC GONADOTROPIN ASSAY CHORIONIC GONADOTROPIN ASSAY 12:00:00 AM EST [place] [facility] KETOROLAC TROMETHAMINE INJ KETOROLAC TROMETHAMINE INJ 2018 12:00:00 AM EST [place] [facility] THROMBOPLASTIN TIME PARTIAL THROMBOPLASTIN TIME PARTIAL 01/30 12:00:00 AM EST [place] [facility] ASSAY OF LIPASE ASSAY OF LIPASE 02/18/2019 12:00:00 AM EST [place] [facility] C-REACTIVE PROTEIN C-REACTIVE PROTEIN 02/18/2019 12:00:00 AM EST [place] [facility] ROUTINE VENIPUNCTURE ROUTINE VENIPUNCTURE 02/18/2019 12:00:00 AM ES T [place] [facility] TRANSVAGINAL US NON-OB TRANSVAGINAL US NON-OB 02/18/2019 12:00:00 A M EST [place] [facility], [facility] EMERGENCY DEPT VISIT EMERGENCY DEPT VISIT 02/18/2019 12:00:00 AM ES T [place] [facility], [facility] CT ABD & PELV W/CONTRAST CT ABD & PELV W/CONTRAST 02/18/2019 12:00: 00 AM EST [place] [facility] EMERGENCY DEPT VISIT EMERGENCY DEPT VISIT 02/18/2019 12:00:00 AM ES T [place] [facility] KETOROLAC TROMETHAMINE INJ KETOROLAC TROMETHAMINE INJ 2018 12:00:00 AM EST [place] [facility] C-REACTIVE PROTEIN C-REACTIVE PROTEIN 02/18/2019 12:00:00 AM EST [place] [facility] COMPREHEN METABOLIC PANEL COMPREHEN METABOLIC PANEL 02/18/2019 1 2:00:00 AM EST [place] [facility], [facility] CT ABD & PELV W/CONTRAST CT ABD & PELV W/CONTRAST 02/18/2019 12:00: 00 AM EST [place] [facility], [facility] ROUTINE VENIPUNCTURE ROUTINE VENIPUNCTURE 02/18/2019 12:00:00 AM ES T [place] [facility] CHORIONIC GONADOTROPIN ASSAY CHORIONIC GONADOTROPIN ASSAY 12:00:00 AM EST [place] [facility], [facility] ROUTINE VENIPUNCTURE ROUTINE VENIPUNCTURE 02/18/2019 12:00:00 AM ES T [place] [facility] ASSAY OF AMYLASE ASSAY OF AMYLASE 02/18/2019 12:00:00 AM EST [place] [facility] THROMBOPLASTIN TIME PARTIAL THROMBOPLASTIN TIME PARTIAL 01/30 12:00:00 AM EST [place] [facility] TRANSVAGINAL US NON-OB TRANSVAGINAL US NON-OB 02/18/2019 12:00:00 A M EST [place] [facility] ASSAY OF LIPASE ASSAY OF LIPASE 02/18/2019 12:00:00 AM EST [place] [facility] BLOOD COUNT COMPLETE AUTO&AUTO DIFRNTL WBC COUNT COMPLETE CB C W/AUTO DIFF WBC 02/18/2019 12:00:00 AM EST [place] [facility] THER/PROPH/DIAG INJ IV PUSH THER/PROPH/DIAG INJ IV PUSH 01/30 12:00:00 AM EST [place] [facility] [facility] CHORIONIC GONADOTROPIN ASSAY CHORIONIC GONADOTROPIN ASSAY 12:00:00 AM EST [place] [facility] THROMBOPLASTIN TIME PARTIAL THROMBOPLASTIN TIME PARTIAL 01/30 12:00:00 AM EST [place] [facility] C-REACTIVE PROTEIN C-REACTIVE PROTEIN 02/18/2019 12:00:00 AM EST [place] [facility] ASSAY OF LIPASE ASSAY OF LIPASE 02/18/2019 12:00:00 AM EST [place] [facility] THER/PROPH/DIAG INJ IV PUSH THER/PROPH/DIAG INJ IV PUSH 01/30 12:00:00 AM EST [place] [facility] COMPREHEN METABOLIC PANEL COMPREHEN METABOLIC PANEL 02/18/2019 1 2:00:00 AM EST [place] [facility] ROUTINE VENIPUNCTURE ROUTINE VENIPUNCTURE 02/18/2019 12:00:00 AM ES T [place] [facility] EMERGENCY DEPT VISIT EMERGENCY DEPT VISIT 02/18/2019 12:00:00 AM ES T [place] [facility] TRANSVAGINAL US NON-OB TRANSVAGINAL US NON-OB 02/18/2019 12:00:00 A M EST [place] [facility] BLOOD COUNT COMPLETE AUTO&AUTO DIFRNTL WBC COUNT COMPLETE CB C W/AUTO DIFF WBC 02/18/2019 12:00:00 AM EST [place] [facility] CT ABD & PELV W/CONTRAST CT ABD & PELV W/CONTRAST 02/18/2019 12:00: 00 AM EST [place] [facility], [facility] KETOROLAC TROMETHAMINE INJ KETOROLAC TROMETHAMINE INJ 2018 12:00:00 AM EST [place] [facility], [facility] ROUTINE VENIPUNCTURE ROUTINE VENIPUNCTURE 02/18/2019 12:00:00 AM ES T [place] [facility], [facility] ASSAY OF AMYLASE ASSAY OF AMYLASE 02/18/2019 12:00:00 AM EST [place] [facility], [facility] COMPREHEN METABOLIC PANEL COMPREHEN METABOLIC PANEL 02/18/2019 1 2:00:00 AM EST [place] [facility], [facility] CHORIONIC GONADOTROPIN ASSAY CHORIONIC GONADOTROPIN ASSAY 12:00:00 AM EST [place] [facility], [facility] THROMBOPLASTIN TIME PARTIAL THROMBOPLASTIN TIME PARTIAL 01/30 12:00:00 AM EST [place] [facility] TRANSVAGINAL US NON-OB TRANSVAGINAL US NON-OB 02/18/2019 12:00:00 A M EST [place] [facility] EMERGENCY DEPT VISIT EMERGENCY DEPT VISIT 02/18/2019 12:00:00 AM ES T [place] [facility] KETOROLAC TROMETHAMINE INJ KETOROLAC TROMETHAMINE INJ 2018 12:00:00 AM EST [place] [facility] ROUTINE VENIPUNCTURE ROUTINE VENIPUNCTURE 02/18/2019 12:00:00 AM ES T [place] [facility] THER/PROPH/DIAG INJ IV PUSH THER/PROPH/DIAG INJ IV PUSH 01/30 12:00:00 AM EST [place] [facility] C-REACTIVE PROTEIN C-REACTIVE PROTEIN 02/18/2019 12:00:00 AM EST [place] [facility] BLOOD COUNT COMPLETE AUTO&AUTO DIFRNTL WBC COUNT COMPLETE CB C W/AUTO DIFF WBC 02/18/2019 12:00:00 AM EST [place] [facility], [facility] ROUTINE VENIPUNCTURE ROUTINE VENIPUNCTURE 02/18/2019 12:00:00 AM ES T [place] [facility] CT ABD & PELV W/CONTRAST CT ABD & PELV W/CONTRAST 02/18/2019 12:00: 00 AM EST [place] [facility], [facility] ASSAY OF AMYLASE ASSAY OF AMYLASE 02/18/2019 12:00:00 AM EST [place] [facility], [facility] ASSAY OF LIPASE ASSAY OF LIPASE 02/18/2019 12:00:00 AM EST [place] [facility], [facility] C-REACTIVE PROTEIN C-REACTIVE PROTEIN 02/18/2019 12:00:00 AM EST [place] [facility] ROUTINE VENIPUNCTURE ROUTINE VENIPUNCTURE 02/18/2019 12:00:00 AM ES T [place] [facility] THROMBOPLASTIN TIME PARTIAL THROMBOPLASTIN TIME PARTIAL 01/30 12:00:00 AM EST [place] [facility] BLOOD COUNT COMPLETE AUTO&AUTO DIFRNTL WBC COUNT COMPLETE CB C W/AUTO DIFF WBC 02/18/2019 12:00:00 AM EST [place] [facility] EMERGENCY DEPT VISIT EMERGENCY DEPT VISIT 02/18/2019 12:00:00 AM ES T [place] [facility], [facility] ROUTINE VENIPUNCTURE ROUTINE VENIPUNCTURE 02/18/2019 12:00:00 AM ES T [place] [facility], [facility] ASSAY OF LIPASE ASSAY OF LIPASE 02/18/2019 12:00:00 AM EST [place] [facility], [facility] THER/PROPH/DIAG INJ IV PUSH THER/PROPH/DIAG INJ IV PUSH 01/30 12:00:00 AM EST [place] [facility], [facility] ASSAY OF AMYLASE ASSAY OF AMYLASE 02/18/2019 12:00:00 AM EST [place] [facility], [facility] CHORIONIC GONADOTROPIN ASSAY CHORIONIC GONADOTROPIN ASSAY 12:00:00 AM EST [place] [facility], [facility] COMPREHEN METABOLIC PANEL COMPREHEN METABOLIC PANEL 02/18/2019 1 2:00:00 AM EST [place] [facility], [facility] CT ABD & PELV W/CONTRAST CT ABD & PELV W/CONTRAST 02/18/2019 12:00: 00 AM EST [place] [facility], [facility] TRANSVAGINAL US NON-OB TRANSVAGINAL US NON-OB 02/18/2019 12:00:00 A M EST [place] [facility], [facility] KETOROLAC TROMETHAMINE INJ KETOROLAC TROMETHAMINE INJ 2018 12:00:00 AM EST [place] [facility], [facility] Results ID Date Data Source [id number] 12/20/2019 04:52:57 PM EDT [facility] Name Value Range Interpretation Code Description Data Arianne rce(s) Supporting Document(s) Progress Note [facility] OSYPJj5qGoFYEeVv31/TGFpbGJZcf0KtIAmyVUx5YDhyPPNgF8NjSAR0iO8iVST3QGdOGaCqHjCmINCl [facility] [file] TbYN29O/FEED MIXER HELPER/HMhOZZOKhtdd4v4tJy5sL9Ts/q43uhuhGuJ7PhIdvZVbYTqELvT8NbIY1j4E2Nu96IXeC [file] ICAgICAgICAgICAgICAgICAgICAgICAgICAgICAgICAgICAgICAgICAgICAgICAgICAgICAgICAgICAg ICAgICAgICAgICAgICAgICAgICAgICAgICAgICAgICAgICAgICAgDQogICAgICAgICAgICAgICAgICAg ICAgICAgICAgICAgICAgICAgICAgICAgICAgICAgIC AgICAgICAgICAgICAgICAgICAgICAgICAgICAgICAgICAgICAgICAgICAgICAgICAgDQogICAgICAgIC AgICAgICAgICAgICAgICAgICAgICAgICAgICAgICAgICAgICAgICAgICAgICAgICAgICAgICAgICAgIC AgICAgICAgICAgICAgICAgICAgICAgICAgICAgICAg DQogICAgICAgICAgICAgICAgICAgICAgICAgICAgICAgICAgICAgICAgICAgICAgICAgICAgICAgICAg ICAgICAgICAgICAgICAgICAgICAgICAgICAgICAgICAgICAgICAgICAgDQogICAgICAgICAgICAgICAg ICAgICAgICAgICAgICAgICAgICAgICAgICAgICAgIC AgICAgICAgICAgICAgICAgICAgICAgICAgICAgICAgICAgICAgICAgICAgICAgICAgICAgDQogICAgIC AgICAgICAgICAgICAgICAgICAgICAgICAgICAgICAgICAgICAgICAgICAgICAgICAgICAgICAgICAgIC AgICAgICAgICAgICAgICAgICAgICAgICAgICAgICAg ICAgDQogICAgICAgICAgICAgICAgICAgICAgICAgICAgICAgICAgICAgICAgICAgICAgICAgICAgICAg ICAgICAgICAgICAgICAgICAgICAgICAgICAgICAgICAgICAgICAgICAgICAgDQogICAgICAgICAgICAg ICAgICAgICAgICAgICAgICAgICAgICAgICAgICAgIC AgICAgICAgICAgICAgICAgICAgICAgICAgICAgICAgICAgICAgICAgICAgICAgICAgICAgICAgDQogIC AgICAgICAgICAgICAgICAgICAgICAgICAgICAgICAgICAgICAgICAgICAgICAgICAgICAgICAgICAgIC AgICAgICAgICAgICAgICAgICAgICAgICAgICAgICAg ICAgICAgDQogICAgICAgICAgICAgICAgICAgICAgICAgICAgICAgICAgICAgICAgICAgICAgICAgICAg TDHqTMXxSTJsXGWrTHUtBKXcOOIcRPNgSQYlTRRlAEQbNHZwVTOfDMLpCWXoAEZvTJi9C4tjMOXzAEZw CM4uISs1Bk2+SCzXDvSpNVQ2fzYpgQ9NEQ3zq0WoHR obRJFjv5RxGJl2WG5YYCKpIWwsJX1TINfwjy1TTLWsZINuoWUZt8ogZuVfRKA4RDMwRqmrHD9SAKRmV6 rgfdUiLEKpHETYBYhgKNLQOUteAKMLDPNwQCFwIiHsPuZgKRAyMR0HLITwW838ruRkAA1THr2WAcAdVE 3qvs3QUsYbQQKhYfmPUqu2AHmqTG7GoKYxwQJyXPUo DJTPAdDtS8kzp7AhMqPhWKUQPVtsES2My3XhwHYfXNv+Qv0FIQ8vv4PsVMnuJHVlER4dlf7AQPxOEkNf O1WyxKklFPFrk6fcHBJpWG9auJSjRTI1VK9jjAZscJPlC7fqfjU2bslyNO4HEDH4AHEiSfApFpMpXqKe BER1SkCyFF7pXEwdBU4ECKC7QRsrQERzAXUvR6gCQn ZgMDAbYBTilCoiCW0ZXuCqB8MvolOfxGUmDFNaQOEDLr7+RSlfbvFfRiuXAaWaAPXaj1YhVFi3SM7POP NsRGlmMF3VYAIpfB2hITrvIM6XArTfQCIiYTPTAvOpC05lyGApPIr4S2DwXrFeHGNhSehjGHCxOEqwMn FtZXMgWyBdDQogID4+ID4+XWfcWJ7EXYiujlTaRLJz Sz0TEIXzIYBvFN7aNYAfXMZoF7E3sChlPXDWXaOmH0szqxjdYY2bELMqR079fAzekjRcRMVhPWDpIn2F UCUfZIS7WBVmrXPiCnjtNQCIVCtnAL0RhFJxTWW5sN5xAXgbUVPyKNRoT9rWHvHyaKcrWS13dTzvpvOx bCBdDQo+Jd1ICY1jw8FxKRu2rkYfNFwrAPXwZUvyOQ OgURIfMEVjZPH8QLM6PHRPPjQzNDJtAUPfEFvfDNZgVUVkvc1UIIUhAFS2QbW0UMUvBCPzOTOpQAvhUM QtSSL9GTI3TNFyAFQvFU2OFjOeVLYrIDRlLEjhTHAzBEYcno3STYMxCIKuXgJaAlGpUPWoSZKsICyqJO IjINEaKnW7FBUdPOTaDG6JXmHdUQSjKIH1RdWeJCBx MZTwij9ZNMZyQNBjDkq6IVBgMOEfKZBpRGzjEJPkBGV6CMThWAYoZJHcID3PUtBwZRGeQPeuSLpxKILk AULlrv3HDBBeXYVcTTS0IkNrIOPvASQyBZaaGCCcEGUtSFn3DYSsBEApME4TBlPlBPVpCEK3MpHwJPLd TSLkvq5GCXSfAIQxXwcsIHOkUPCkFAWnVXatBECeJU A0OMupELMfBAGpHW5JXzAuYXWzKPFxZRvvGOZtCMYclo9NBZWtEQNxMTE2GPMtUXZaZOMyWEclPIUgMI L7MpOhCGVlETPwJV4USjBtTQBvDMN0NpGeXQFzBSJqzu8CMGHfMCLzIxCdXDThQKCxYAWjAWtoFOFdVD HrGyMtKZEcWQTkHN4LXwGvXAMvAJH7CCGeMUZwLAPt ef3YYSEsEFO3PIXeCZUoHYSlRHSyGWxwBKOrCDR1YTYvUOZmYJMcCI0NUbZyMEOqXJB4QJpsJVTtJZWh el6BRUXfLXN6UUggEdCoOOUyQNXhPWyeWEBxXUU3QSwnCDSgTWUkUE0CFkExNXRuHOCvYyuiGWTbJTUf fm8YSUGlOIF9IjH9AvUpXRUkBKDxVLpsNXAgBHX1DJ OqYFCcUCLfXR2GCoUuXSTtLUasZjDbSNNuDZGbjx2RYESwNPT4CPR8YaKxCOFlRAOqITk4myXybZKyWP e4SW8PZ2IxikTwShNAYg8Qf596JEOrKPQoZi1GZ4ktOr6yGQEcAKOLYl8EVFf8KWI3HZnbUDO5CXK4Ff O6EIAoR7U9AFQuUGI2QtUoUhl+RCi1DRVdBZH6Yztz ALvcPEOyHmS7GMC3RWS4Aez6XCW3Qi5kSAUYTq5+ANxxoAAjbKynXMRGPnH3OmL3BSdwCXUCFg6O ID Date Data Source [id number] 11/07/2019 11:33:00 PM EDT [facility] 1 OrderSheet [facility] Emergency Department [address] [place] [address] Phone #: [phone] 11/07/2019 23:28 Patient: BERKLEY LOPEZ Sex: F [...] 25 mg M.D.;(NOW x1, HIGH 2 OrderSheet [facility] Emergency Department [address] [place] [address] Phone #: ext- [phone] 11/07/2019 23:28 Patient: BERKLEY LOPEZ Sex: F : 2000 Age: 19yALERTMEDICATION)Toradol 15 mg IVP 23:55 11/07/2019 00:09 11/08/2019X1 dose: 15 mg Ronda Garcia RN(NOW x1) M.DBetsy;GENERAL ORDERSOrder Description Priority Entered Acknowledged InitialedNPO 23:55 11/07/2019 23:56 Ronda Napier RN, M.D.;Saline Lock 23:11/07/2019 23:56 Ronda Napier RN, M.D.;[Electronically signed by Ronda Garcia M.D. (01:27 11/08/2019)][Electronically signed by Jennifer Oleary R.N. (05:05 11/08/2019)][Electronically locked by Jennifer Oleary R.N. (05:05 11/08/2019)] Name Value Range Interpretation Code Description Data Arianne rce(s) Supporting Document(s) ID Date Data Source [id number] 11/07/2019 11:33:00 PM EDT [facility] 1 Medication Reconciliation Report [facility] Emergency Department [address] [place] [address] Phone #: ext- [phone] 11/07/2019 23:28 Patient: [...] Dispense 14 tablet.Refills: 2. Substitution permitted.[facility] - [id number] - [address] [place], [place] [phone]. . -- Ronda Garcia M.D. Name Value Range Interpretation Code Description Data Arianne rce(s) Supporting Document(s) ID Date Data Source [id number] 11/07/2019 11:33:00 PM EDT [facility] 1 Medication Administration Record [facility] Emergency Department [address] [place] [address] Phone #: ext- [phone] 11/07/2019 23:28 Patient: BERKLEY LOPEZ Sex: F : 2000 Age: 19yWeight: 106.5 kgHeight/Length: 66 inBMI: 37.9ALLERGIES: Penicillins Date/Time Medication Administered Medication OrderedStart NS [IV] NS IV 1000 mL Bolus: : Bolus 705013:06 11/08/2019 Dose: IV Fluids mL (X1)Tanner Hopson RN Rate: 1000 mL/hr---- Bolus: 1000 mLStop Dispensed: 1000 mL bag01:06 11/08/2019 Site: #2 right upper armTina Lam Hopson R.N.Start PHENERGAN [IVPB] Phenergan IV 25mg in 50mL NS,00:07 11/08/2019 Dose: 25 mg IVPB give wide open: 25 mg (NOW x1,Tanner Hopson RN Rate: 600 mg/hr HIGH ALERT MEDICATION)---- Dispensed: 50 mL bagStop Site: #2 right upper arm00:11/08/2019Tanner Hopson RNGiven TORADOL [IVP] (KETOROLAC Toradol 15 mg IVP X1 dose: 15 mg00:11/08/2019 TROMETHAMINE) (NOW x1)Tanner Hopson RN Dose: 15 mg IVP Site: #2 right upper arm Name Value Range Interpretation Code Description Data Arianne rce(s) Supporting Document(s) ID Date Data Source [id number] 11/07/2019 11:33:00 PM EDT [facility] 1 General Instructions [facility] Emergency Department [address] [place], [place] [address] Phone #: ext- [phone] 11/07/2019 23:28 Patient: BERKLEY LOPEZ Sex: F : 2000 Age: 19yPrimary dysmenorrheaINSTRUCTIONSDrink plenty of fluids. Do not smoke. No alcohol.Warnings: Further evaluation is necessary ([facility]). It is very important to follow up [...] Dispense 14 tablet.Refills: 2. Substitution permitted.Pharmacy - [facility] #[id number] - [address] [place], [place] [phone]. .Follow-up:Return to the emergency department as needed. Follow up with your healthcare provider in three even ifwell. Call for an appointment. Reason for referral: evaluation and treatment. Summary of care provided topatient via paper. Follow up with a musical engineer in three days even if well. Call for an appointment.Reason for referral: evaluation and treatment. Summary of care provided to patient via paper.Understanding of the discharge instructions verbalized by patient. Expected course of illness, dischargeinstructions, activity level, diet, prescriptions x1, follow-up appointment and risks and benefits of treatmentre viewed with patient and understanding verbalized. Agrees to plan of care.[facility], , , [address] [place], [address] Follow up in three days even if well. Call for an appointment. Reason for referral: evaluation andtreatment. Summary of care provided to patient via paper. 2 General Instructions [facility] Emergency Department [address] [place] [address] Phone #: ext- [phone] 11/07/2019 23:28 Patient: BERKLEY LOPEZ Sex: F [...] the uterus (not cancer) 3 General Instructions [facility] Emergency Department [address] [place] [address] Phone #: ext- [phone] 11/07/2019 23:28 Patient: [...] or occurs between periods 4 General Instructions [facility] Emergency Department [address] [place] [address] Phone #: ext- [phone] 11/07/2019 23:28 Patient: BERKLEY LOPEZ Sex: F : 2000 Age: 19y Unusual vaginal discharge between periods Bleeding becomes heavy (soaking more than 1 pad or tampon every hour for 3 hours) Passage of pink or rodriguez tissue from the vagina [phone] [employer]. [address] [place] [address]. All rights reserved. This information is not intended as asubstitute for professional medical care. Always follow your healthcare professional's instructions. You have been given the following additional information: Painful Menstrual Periods (Dysmenorrhea)(Electronically signed by Ronda Garcia M.D. 11/08/2019 01:27) Name Value Range Interpretation Code Description Data Arianne rce(s) Supporting Document(s) ID Date Data Source [id number] 11/07/2019 11:33:00 PM EDT [facility] 1 Clinical Report - Nurses [facility] Emergency Department [address] [place] [address] Phone #: ext- [phone] 11/07/2019 23:28 Patient: BERKLEY LOPEZ Sex: F : 2000 Age: 19yTRIAGEArrived by private vehicle. Historian: patient.Triage time: 23:30 11/07/2019.Chief Complaint: PELVIC PAIN and VAGINAL BLEED.Onset. (3 days ago). ( Seen at [facility] for same, spotting this morning. This afternoon she noticed it gettingworse. Was dizzy when watching TV tonight. States that she went through 4 pads today, and has a"couple" golf ball sized clots before. Has PCOS, so her periods are irregular. States that she called buts not scheduled a ASSISTED LIVING COORDINATOR follow up yet.). ( Has had 3 [...] SURGERIES:.Knee Surgery. 2 Clinical Report - Nurses [facility] Emergency Department [address] [place] [address] Phone #: ext- [phone] 11/07/2019 23:28 Patient: BERKLEY LOPEZ Sex: F [...] site #2 3 Clinical Report - Nurses [facility] Emergency Department [address] [place] [address] Phone #: [phone]- [phone] 11/07/2019 23:28 Patient: BERKLEY LOPEZ Sex: F [...] Patient verbalized understanding. Written instructions provided in [place]. The patient was discharged by the physician. She was discharged home. She left ambulatory and via private vehicle. Parent driving. --01:16 11/08/19 Jennifer Hopson R.N. 01:13 11/08/19. BP: 122/81. MAP: 94. HR: 88. RR: 16. O2 saturation: 99%. Temp: 98 F. Pain level now: 05/08. --01:16 11/08/19 Jennifer Hopson R.N. Departure time: 01:19 11/08/2019. --01:11/08/19 Jennifer Hopson R.N. 4 Clinical Report - Nurses [facility] Emergency Department [address] [place] [address] Phone #: [phone]- [phone] 11/07/2019 23:28 Patient: BERKLEY LOPEZ Sex: F : 2000 Age: 19yLocked/Released at 11/08/2019 05:05 by Jennifer Hopson R.N. Name Value Range Interpretation Code Description Data Arianne rce(s) Supporting Document(s) ID Date Data Source [id number] 11/07/2019 11:33:00 PM EDT [facility] 1 Clinical Report - Physicians/Mid Levels [facility] Emergency Department [address] [place] [address] Phone #: ext- [phone] 11/07/2019 23:28 Patient: [...] or hematuria. (pt has PCOS, seen at [facility] ER 2 days ago for passing small clot, not ; today, bleeding worse, went through 4 pads w some clots and pelvic pain; her periods are irregular; V x 3 today; was suppose to f/u w ASSISTED LIVING COORDINATOR but no appt yet). Similar symptoms previously. Patient has had similar symptoms occasionally. Recent medical care: The patient was seen recently at another facility in the emergency department. ( seen at [facility] 2 days ago for passing blood clot, [...] Medications: 2 Clinical Report - Physicians/Mid Levels [facility] Emergency Department [address] [place] [address] Phone #: ext- [phone] 11/07/2019 23:28 Patient: BERKLEY LOPEZ Sex: F [...] 36.0) 3 Clinical Report - Physicians/Mid Levels [facility] Emergency Department [address] [place] [address] Phone #: ext- [phone] 11/07/2019 23:28 Patient: BERKLEY LOPEZ Sex: F [...] Male GFR Interprentation 20-49 yrs >60 mL/min Izvmsz40-31 yrs >56 mL/min Normal 60-69 yrs >49 mL/min Normal 70-79yrs>42 mL/min Normal 80 and above >35 mL/min Normal Female GFRInterpretation 20-39 yrs >60 mL/min Normal 40-49 yrs >58 mL/minNormal 50-59 yrs >51 mL/min Normal 60-69 yrs >45 mL/min Hilvdf59-95 yrs >39 mL/min Normal 80 and above >32 mL/min NormalLipase: (DEBBI: 11/07/2019 23:37) ( [facility] 11/08/[facility] 00:17) Final results Test Result Flag Units (Reference) 4 Clinical Report - Physicians/Mid Levels [facility] Emergency Department [address] [place] [address] Phone #: ext- [phone] 11/07/2019 23:28 Patient: BERKLEY LOPEZ Sex: F : 2000 Age: 19y LIPASE 30 U/L (13 - 60) Beta-HCG, Qual Serum: (DEBBI: 11/07/2019 23:37) ( [facility] 11/08/2019 00:22) Final results Test Result Flag Units (Reference) HCG SERUM QUAL NEGATIVE (NORMAL: NEGAT HCG SERUM QL REENTER NEGATIVE (NORMAL: NEGAT { KIT LOT # [id number] ){ KIT EXP DATE 12/11/20 ){ PROCEDURAL CONTROL VALID ) Lactic Acid: (DEBBI: 11/07/2019 23:37) ( [facility] 11/08/2019 00:03) Final results Test Result Flag Units (Reference) LACTIC ACID 2.0 MMOL/L (0.2 - 2.2).PROGRESS AND PROCEDURESCourse of Care: 01:09 11/08/19. pt has nml speculum exam, no bleeding whatsoever; workup all in andnml, not ; probable dysmenorrhea; will refer her to [facility]; d/c instructions given. Patient counseled in person [...] No alcohol. Warnings: Further evaluation is necessary ([facility]). It is very important to follow up [...] worsens. 5 Clinical Report - Physicians/Mid Levels [facility] Emergency Department [address] [place] [address] Phone #: ext- [phone] 11/07/2019 23:28 Patient: BERKLEY LOPEZ Sex: F [...] tablet. Refills: 2. Substitution permitted. Pharmacy - [facility] #[id number] - [address] [place], [place] [phone]. . Follow-up: Return to the emergency department as needed. Follow up with your healthcare provider in three even if well. Call for an appointment. Reason for referral: evaluation and treatment. Summary of care provided to patient via pap er. Follow up with a musical engineer in three days even if well. Call [...] Agrees to plan of care. Follow-up with: [facility], , , [address] [facility], [place], [address] Follow up in three days even if well. Call for an appointment. Reason for referral: evaluation and treatment. Summary of care provided to patient via paper.(Electronically signed by Ronda Garcia M.D. 11/08/2019 01:27) Name Value Range Interpretation Code Description Data Arianne rce(s) Supporting Document(s) ID Date Data Source [id number] 11/08/2019 12:22:00 AM EDT [facility] Name Value Range Interpretation Code Description Data Arianne rce(s) Supporting Document(s) HCG SERUM QUAL NEGATIVE NORMAL: NEGATIVE [facility] HCG SERUM QL REENTER NEGATIVE NORMAL: NEGATIVE [facility] { KIT LOT # [id number] ){ KIT EXP DATE 12/11/20 ){ PROCEDURAL CONTROL VALID ) ID Date Data Source [id number] 11/08/2019 12:19:00 AM EDT [facility] Name Value Range Interpretation Code Description Data [facility] rce(s) Supporting Document(s) CBC W/AUTOMATED DIFF [facility] COMPLETE BLOOD COUNT Leukocytes [#/volume] in Blood by Automated count 12.9 10^3/uL 4.2 - 11.0 H [facility] Erythrocytes [#/volume] in Blood by Automated count 4.69 10^6/uL 4. 20 - 5.40 [facility] Hemoglobin [Mass/volume] in Blood 13.2 g/dL 12.0 - 16.0 [facility] Hematocrit [Volume Fraction] of Blood by Automated count 39.7 % 3 7.0 - 47.0 [facility] Erythrocyte mean corpuscular volume [Entitic volume] by Auto mated count 84.6 fL 81.0 - 101 [facility] Erythrocyte mean corpuscular hemoglobin [Entitic mass] by Automated count 28.1 pg 27.0 - 34.0 [facility] Erythrocyte mean corpuscular hemoglobin concentration [Mass/volume] by Automated count 33.2 g/dL 31.0 - 36.0 [facility] Erythrocyte distribution width [Ratio] by Automated count 12.9 % 11.5 - 14.5 [facility] Platelets [#/volume] in Blood by Automated count 289 10^3/uL 150 - 45 0 [facility] Platelet mean volume [Entitic volume] in Blood by Automated count 11.2 fL 7.4 - 10.4 H [facility] Neutrophils/100 leukocytes in Blood by Automated count 53.0 % 37. 0 - 80.0 [facility] Lymphocytes/100 leukocytes in Blood by Manual count 34.8 % 25.0 - 40.0 [facility] Monocytes/100 leukocytes in Blood by Automated count 8.1 % 3.0 - 8.0 H [facility] Eosinophils/100 leukocytes in Blood by Automated count 2.9 % 0.0 - 7.0 [facility] Basophils/100 leukocytes in Blood by Automated count 0.8 % 0.0 - 2.5 [facility] %IG 0.4 % 0.0 - 0.0 H [facility] al %NRBC 0.0 % 0.0 - 0.0 [facility] al Neutrophils [#/volume] in Blood by Automated count 6.85 10^3/uL 2.00 - 6.90 [facility] Lymphocytes [#/volume] in Blood by Automated count 4.49 10^3/uL 0.60 - 3.40 H [facility] Monocytes [#/volume] in Blood by Automated count 1.04 10^3/uL 0.00 - 0.90 [facility] Eosinophils [#/volume] in Blood by Automated count 0.38 10^3/uL 0.00 - 0.70 [facility] Basophils [#/volume] in Blood by Automated count 0.10 10^3/uL 0.00 - 0.20 [facility] #IG 0.05 10^3/uL 0.00 - 0.10 [facility] #NRBC 0.00 10^3/uL 0.00 - 0.00 [facility] ospital MANUAL DIFF SEE BELOW [facility] ital Segmented neutrophils/100 leukocytes in Blood by Manual count 51 % 37 - 80 [facility] %LYMPH 42 % 25 - 40 H [facility] al %MONO 2 % 3 - 8 L [facility] al %EOS 5 % 0 - 7 [facility] al RBC MORPH NOT INDICATED [facility] ID Date Data Source [id number] 11/08/2019 12:16:00 AM EDT [facility] Name Value Range Interpretation Code Description Data Arianne rce(s) Supporting Document(s) Lipase [Enzymatic activity/volume] in Serum or Plasma 30 U/L 13 - 60 [facility] ID Date Data Source [id number] 11/08/2019 12:16:00 AM EDT [facility] Name Value Range Interpretation Code Description Data Arianne rce(s) Supporting Document(s) COMPREHENSIVE METABOLIC PANEL [facility] COMPREHENSIVE METABOLIC PANEL Sodium [Moles/volume] in Serum or Plasma 141 mEq/L 134 - 153 [facility] Potassium [Moles/volume] in Serum or Plasma 4.0 mEq/L 3.6 - 5.0 [facility] Chloride [Moles/volume] in Serum or Plasma 105 mEq/L 98 - 107 [facility] Carbon dioxide, total [Moles/volume] in Serum or Plasma 24 MEQ/L 22 - 30 [facility] Glucose [Mass/volume] in Serum or Plasma 87 MG/DL 65 - 110 [facility] BUN 8 MG/DL 7 - 21 [facility] al Creatinine [Mass/volume] in Serum or Plasma 0.7 MG/DL 0.7 - 1.5 [facility] BUN/CREAT 11 8 - 27 [facility] al Protein [Mass/volume] in Serum or Plasma 6.9 G/DL 6.3 - 8.2 [facility] Albumin [Mass/volume] in Serum or Plasma 4.7 G/DL 3.9 - 5.0 [facility] Globulin [Mass/volume] in Serum by calculation 2.2 GM/DL 2.4 - 3.2 L [facility] A/G RATIO 2.1 0.8 - 2.0 [facility] Calcium [Mass/volume] in Serum or Plasma 9.7 MG/DL 8.4 - 10.2 [facility] Bilirubin.total [Mass/volume] in Serum or Plasma <0.7 MG/DL 0.2 - 1.3 [facility] Alkaline phosphatase [Enzymatic activity/volume] in Serum or Plasma 102 U/L 38 - 126 [facility] Aspartate aminotransferase [Enzymatic activity/volume] in Serum or Plasma 19 U/L 5 - 40 [facility] Alanine aminotransferase [Enzymatic activity/volume] in Seru m or Plasma 22 U/L 7 - 56 [facility] Anion gap 3 in Serum or Plasma 12.0 mmol/L 8.0 - 16.0 [facility] AGE 19 yrs [facility] al NON-AA GFR >60 mL/min [facility] ital AFR AMER GFR >60 mL/min [facility] Male GFR In terprentation 20-49 [...] >32 mL/min Normal ID Date Data Source [id number] 11/08/2019 12:03:00 AM EDT [facility] Name Value Range Interpretation Code Description Data Arianne rce(s) Supporting Document(s) Lactate [Moles/volume] in Serum or Plasma 2.0 MMOL/L 0.2 - 2.2 [facility] ID Date Data Source LB 07/20/2019 06:38:00 PM EDT [facility] [id number], [id number],784698, [id number],[id number],669519, [id number],[id number],737137, Name Value Range Interpretation Code Description Data Arianne rce(s) Supporting Document(s) IMMAT. GRAN% 0.0-0.5 Normal (applies to non-numeric res ults) [facility] ID Date Data Source LB 07/20/2019 06:38:00 PM EDT [facility] [id number], [id number],[id number],868830, B83,[id number],505060, B83,[id number],803147, Name Value Range Interpretation Code Description Data Arianne rce(s) Supporting Document(s) ABSOLUTE IMMATURE GRAN 0.00-0.40 Normal (applies to non-n umeric results) [facility] ID Date Data Source LB 07/20/2019 06:50:00 PM EDT [facility] [id number],[id number], [id number],[id number],315730, B83,480089-1,518333, B83,[id number],744195, Name Value Range Interpretation Code Description Data Arianne rce(s) Supporting Document(s) EGFR - NON- Normal (applies to non-numeric results) [facility] >60 mL/min/1.73 EGFR - Normal (applies to non- numeric results) [facility] >60 mL/min/1.73 Potential Chronic Kidne y Disease: <60ml/min/1.73sq meters Kidney Failure: <15ml/min/1.73sq meters ID Date Data Source 07/20/2019 06:45:00 PM EDT [facility] [id number], [id number],[id number],771475, B83,127604-6,889692, B83,[id number],076160, Name Value Range Interpretation Code Description Data Arianne rce(s) Supporting Document(s) URINE RBC 0-[address] [facility] Services URINE WBC 0-2 Abnormal (applies to non-numeric res ults) [facility] BACTERIA FEW Abnormal (applies to non-numeric res ults) [facility] BUDDING YEAST [facility] URINE SQUAMOUS EPI [facility] th Services MUCOUS [facility] HYALINE CASTS [facility] CALCIUM OXALATE CRYSTALS PRESENT [facility] ID Date Data Source [id number] 07/20/2019 06:50:00 PM EDT [facility] [id number],[id number], Name Value Range Interpretation Code Description Data Arianne rce(s) Supporting Document(s) LIPASE Normal (applies to non-numeric results) [facility] <300 ID Date Data Source [id number] 07/20/2019 06:50:00 PM EDT [facility] [id number], Name Value Range Interpretation Code Description Data Arianne rce(s) Supporting Document(s) SODIUM 135-146 Normal (applies to non-numeric resul ts) [facility] POTASSIUM 3.5-5.3 Normal (applies to non-numeric resul ts) [facility] CHLORIDE 98-107 Above high normal [facility] CARBON DIOXIDE 21-[address] [facility] ANION GAP 5-15 Normal (applies to non-numeric resul ts) [facility] GLUCOSE 65-99 Above high normal [facility] Reference Ranges: Normal Fasting Glucose ........65-99 MG/DL Pre-Diabetes ......100-125 MG/DL Provisional Diagnosis of Diabetes .........>125 MG/DL BUN 7-23 Normal (applies to non-numeric results) [facility] CREATININE 0.5-1.0 Normal (applies to non-numeric resul ts) [facility] BUN/CREAT RATIO [facility] CALCIUM 8.4-10.4 Normal (applies to non-numeric resul ts) [facility] TOTAL PROTEIN 6.3-8.2 Normal (applies to non-numeric re sults) [facility] ALBUMIN 3.5-5.0 Normal (applies to non-numeric resul ts) [facility] ALB/GLOB RATIO 1.1-1.8 Normal (applies to non-numeric r esults) [facility] BILIRUBIN, TOTAL 0.0-1.3 Normal (applies to non-numeric results) [facility] ALK PHOSPHATASE 38-126 Normal (applies to non-numeric results) [facility] AST (SGOT) Normal (applies to non-numeric results) [facility] <59 ALT (SGPT) 0-34 Normal (applies to non-numeric resul ts) [facility] Reference Range:Females <35Males <50 ID Date Data Source [id number] 07/20/2019 06:38:00 PM EDT [facility] [id number], Name Value Range Interpretation Code Description Data Arianne rce(s) Supporting Document(s) WBC 4.0-10.5 Above high normal [facility] RBC 4.00-5.20 Above high normal [facility] HEMOGLOBIN 12.2-15.5 Normal (applies to non-numeric resul ts) [facility] HEMATOCRIT 35.0-47.0 Normal (applies to non-numeric resul ts) [facility] MCV 77.0-100.0 Normal (applies to non-numeric resul ts) [facility] MCH 25.0-33.0 Normal (applies to non-numeric resul ts) [facility] MCHC 31.0-36.0 Normal (applies to non-numeric resul ts) [facility] RDW 12.0-17.0 Normal (applies to non-numeric resul ts) [facility] PLATELET COUNT 125-425 Normal (applies to non-numeric r esults) [facility] MPV 8.0-12.0 Normal (applies to non-numeric results) [facility] ABSOLUTE NEUT 1.4-8.4 Normal (applies to non-numeric re sults) [facility] ABSOLUTE LYMPH 1.0-4.0 Normal (applies to non-numeric r esults) [facility] ABSOLUTE MONO 0.0-1.5 Normal (applies to non-numeric re sults) [facility] ABSOLUTE EOS 0.0-0.7 Normal (applies to non-numeric res ults) [facility] ABSOLUTE BASO 0.0-0.1 Normal (applies to non-numeric re sults) [facility] NEUT% 35.0-75.0 Normal (applies to non-numeric resul ts) [facility] LYMPH% 20.0-42.0 Normal (applies to non-numeric resul ts) [facility] MONO% 0.0-15.0 Normal (applies to non-numeric resul ts) [facility] EOS% 0.0-10.0 Normal (applies to non-numeric resul ts) [facility] BASO% 0.0-2.0 Normal (applies to non-numeric resul ts) [facility] ID Date Data Source NE 07/22/2019 07:40:00 AM EDT [facility] Name Value Range Interpretation Code Description Data Arianne rce(s) Supporting Document(s) CLEAN VOIDED URINE CULT [facility] [id number], Name: BERKLEY LOPEZBetsy Littlejohn: 2000 Sex: [place]# Loc [facility] [id number] VSLAB URNC 07/20/19 CLEAN VOIDED URINE CULT FINAL <10,000 CFU/mL NOA SUGGESTIVE OF UROGENITAL SKIN CONTAMINATIONKEY FOR RESULTS: - NEW RESULTATT.PHYS.: DINORAH DOOLEY LOCATION: [facility]--ADM.DATE: 07/20/19 PATIENT : BERKLEY LOPEZ MICROBIOLOGYPRINTED: 07/22/19 07:40 REGULAR 2 PAGE: 2 of 1 1 ID Date Data Source [id number] 07/20/2019 06:41:00 PM EDT [facility] [id number],[id number], Name Value Range Interpretation Code Description Data Arianne rce(s) Supporting Document(s) URINE COLOR YELLOW Normal (applies to non-numeric resu lts) [facility] URINE APPEARANCE CLEAR Normal (applies to non-numeric results) [facility] UR SPECIFIC GRAV 1.005-1.030 Normal (applies to non-numeri c results) [facility] URINE PH 5.0-7.5 Normal (applies to non-numeric resul ts) [facility] URINE LEUKOCYTE LARGE NEGATIVE Abnormal (applies to non-numeri c results) [facility] URINE NITRITE NEGATIVE NEGATIVE Normal (applies to non-numeric re sults) [facility] URINE PROTEIN TRACE MG/DL NEGATIVE Normal (applies to non-numeric r esults) [facility] URINE GLUCOSE NORMAL MG/DL NORMAL Normal (applies to non-numeric results) [facility] URINE KETONES TRACE MG/DL NEGATIVE Normal (applies to non-numeric r esults) [facility] UR UROBILINOGEN NORMAL MG/DL Normal (applies to non-numeri c results) [facility] NORMAL URINE BILIRUBIN NEGATIVE MG/DL NEGATIVE Normal (applies to non- numeric results) [facility] URINE OCCULT BLD NEGATIVE NEGATIVE Normal (applies to non-numeric results) [facility] URINE MICROSCOPIC INDICATED Abnormal (applies to non-nume ramone results) [facility] URINE C-S REQUEST see below [facility] SPECIMEN SENT TO MICROBIOLOGY ID Date Data Source [id number] 06/29/2019 02:10:35 PM EDT [place] - [facility], [facility] EXAM:XR KNEE 3 VIEWS LEFT ORDERING PROVI [...] Thank you for referring your patient to [facility]. Name Value Range Interpretation Code Description Data Arianne rce(s) Supporting Document(s) ID Date Data Source [id number] 06/18/2019 08:11:00 PM EDT [facility] PROCEDURE: ABDOMEN, 2 VIEW X-RAY ORD#:[id number] DATE: 06/18/2019 19:02 ACC#: [id number]:PROCEDURE: ABDOMEN, 2 VIEW X-RAYDATE AND TIME: 06/18/2019 7:02 PM EDTHISTORY: *Pain. Constipation. Abdominal pain.COMPARISON: NoneTECHNIQUE: 3 frontal views of the abdomen.-IMPRESSION: Nonspecific, nonobstructive bowel gas pattern. No gross free air. Large amount of stool scattered within the colon and likely the rectum. Scattered air within the colon.Lung bases are clear. No abnormal calcifications. No acute osseous abnormality is identified.DWS: [id number] CUMULATIVE S RADIOLOGY FLUOROSCOPY TIME SINCE 07/30/2009: 0 sec (=0.00 min)EXAM DATE: 06/18/2019 19:02 ORDERED BY:JOSE MCKEE PACS IMAGES READ BY: KAYLA SCOTTIGNED 06/18/2019 20:09 BY KAYLA GODINEZ MD [facility] ACC#: [id number] Name Value Range Interpretation Code Description Data Arianne rce(s) Supporting Document(s) ID Date Data Source [id number] 05/26/2019 02:33:53 PM EDT [place] Tonja flore[place] - [facility], [facility] BERKLEY LOPEZ LPATIENT IDENTIFICATION :Practice Site: [facility] Name: BERKLEY LOPEZ LMedical Record Number: [id number] Of : 2000CHIEF COMPLAINT:patient here for c/o [...] strained her back. She has been lifting [id number] infant whois about 15 pounds. 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 Low grade fever UA is essentially negative and no urinary symptoms. Patient declined urineculture. No fever inclinic.Ordered:naproxen, 500 mg = 1 tab(s), PO (oral), bid, PRN Pain, # 30 tab(s),Maintenance, Pharmacy: [id number], 1 tab(s) PO (oral) bid,PRN:PainPOC Urine [...] EmergencyRoom or call 911.Thank you for choosing [facility]. We hope you are feeling [...] othersevere/emergent symptoms-go toER/call 911. With: DINORAH DOOLEYAddress: [facility] [address] [place] [address] , [place], [place],[address]; This document was authenticated by Desiree Christina FNP FNP on 05/26/201902:33 PM Name Value Range Interpretation Code Description Data Arianne rce(s) Supporting Document(s) ID Date Data Source [id number] 05/16/2019 07:37:05 PM EDT [place] Tonja flore[place] - [facility], [facility] BERKLEY LOPEZ LPATIENT IDENTIFICATION :Practice Site: [facility] Name: BERKLEY LOPEZ LMedical Record Number: [id number] Of : 2000CHIEF COMPLAINT:rm 1 c/o pain [...] 4 mg = 1 tab(s), PRN, SubLINGUAL, [id number] EXAM:VITALS:T: 36.9 C (Tympanic) T: 98.4 F [...] (04/27/19)COAGULATIOND-Dimer: 450 ng/mL FEU (04/27/19)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 Name Value Range Interpretation Code Description Data [facility] rce(s) Supporting Document(s) ID Date Data Source [id number] 05/13/2019 05:32:45 PM EDT [place] Ton[place] flore[place] - [facility] BERKLEY LOPEZ LHISTORY SOURCE:Patient , mother, nurse's [...] shortness of breath. [facility] anyone [...] 4 mg = 1 tab(s), PRN, SubLINGUAL, [id number] ODT 4 mg oral tablet, disintegrating 4 [...] Virology LATEST RESULTS HISTORICALRESULTSInflu Spec Type 05/12/19 FEED MIXER HELPER Swab 04/20/18NP Swab 14:17 Influenza A 05/12/19 [...] of each breast. OVERALL FINAL ASSESSMENTAssessment ACR [id number] 2: Benign Findings. RECOMMENDATIONNormal screening recommended according to [employer] guidelines. This document has been authenticated by Harrison Molina MD on 05/01/2019 9:10AM.Thank you for referring your patient to [facility]. Signed By: Jesse LINARES, Harrison [...] PM.Thank you for referring your patient to [facility]. Signed By: José Ma XR [...] effusion This document has been authenticated by iDmas Douglas MD on 04/24/2019 10:32AM. Thank you [...] patient to [facility]. Signed By: Kit Lerma MD US Extremity Venous Lower Left [...] 11:06:54EXAM:US PELVIS TRANSVAGINAL ONLY ORDERING PROVIDER:MD Atilio uFller CLINICAL HISTORY:Vomiting. Blood per rectum. COMPARISON STUDY:Pelvic [...] Thank you for referring your patient to [facility]. Signed By: WILFREDO ALBRIGHTCARDIOLOGY RESULTS:No [...] rce(s) Supporting Document(s) ID Date Data Source [id number] 05/12/2019 02:39:15 PM EDT [place] - [facility] Name Value Range Interpretation Code Description Data Arianne rce(s) Supporting Document(s) RSV Screen Negative [place] Krishna lorraine - [facility] Respiratory Syncytial Virus Screening is performed by Nucleic Acid Amplification Testing (NAAT). ID Date Data Source [id number] 05/12/2019 02:39:04 PM EDT [place] - [facility] Name Value Range Interpretation Code Description Data Arianne rce(s) Supporting Document(s) Influenza A Negative [place] - [facility] Rapid Influenza testing performed by Nuc leic Acid Amplification Testing (NAAT) Influenza B Negative [place] Tonja rddallin - [facility] Influ Spec Type [place] [facility] - [facility] ID Date Data Source [id number] 05/12/2019 02:27:25 PM EDT [place] - [facility] Name Value Range Interpretation Code Description Data Arianne rce(s) Supporting Document(s) Rapid Grp A Neg [place] [facility] - [facility] Added on by Discern Audit Strep A Neg cmt [place] [facility] - [facility] ID Date Data Source [id number] 05/12/2019 02:27:25 PM EDT [place] Tonja rdes - [facility] Name Value Range Interpretation Code Description Data Arianne rce(s) Supporting Document(s) Rapid Grp A Strep, Throat Negative [place] [facility] - [facility] Rapid Group A Streptococcus Screen is pe rformed by Enzyme Immunoassay. ID Date Data Source [id number] 05/12/2019 01:42:04 PM EDT [place] Tonja florez - [facility], [facility] EXAM:US EXTREMITY VENOUS LOWER LEFTORDER ING PROVIDER:TAHIRA [...] Thank you for referring your patient to [facility]. Name Value Range Interpretation Code Description Data Arianne rce(s) Supporting Document(s) ID Date Data Source [id number] 05/01/2019 09:12:48 AM EST [place] Tonja flore[place] - [facility], [facility] EXAM: US BREAST BILATORDERING PROVIDER:Madhavi Montero CLINICAL [...] appearance of each breast.OVERALL FINAL ASSESSMENTAssessment ACR [id number] 2: Benign Findings.RECOMMENDATIONNormal screening recommended according to [employer] guidelines.This document has been authenticated by Harrison Molina MD on 05/01/2019 9:10AM. Thank you for referring your patient to [facility]. Name Value Range Interpretation Code Description Data Arianne rce(s) Supporting Document(s) ID Date Data Source [id number] 04/27/2019 05:09:56 PM EST [place] [facility], [facility] BERKLEY LOPEZ [facility] SOURCE:Patient , previous charts reviewed, nurses notes [...] 3.0 .8 14:03 Monocytes, absolute 04/27/19 0.6 .4 14:03 Eosinophils, absolute 04/27/19 0.2 .1 14:03 [...] 04/27/19 >60 04/03/19>60 14:03 Calcium 04/27/19 9.2 209.4 14:03 Albumin Level 04/27/19 4.0 .0 14:03 [...] to [facility]. Signed By: José MaCARDIOLOGY RESULTS:ECG [...] rce(s) Supporting Document(s) ID Date Data Source [id number] 04/27/2019 02:53:12 PM EST [place] Ton[place] fl[place] - [facility], [facility] EXAM:XR CHEST 2 VIEWSORDERING PROVIDER:Kathy MckennaCLINICAL HISTORY:Chest pain.COMPARISON STUDY:12/02/2018.TECHNIQUE:2 views.FINDINGS:The heart is normal in size. No focal pulmonary abnormality is identified.The bones and soft tissues are unremarkable.IMPRESSION: No evidence of acute pulmonary disease.This document has been authenticated by José Ma MD on 04/27/2019 2:51PM. Thank you for referring your patient to [facility]. Name Value Range Interpretation Code Description Data Arianne rce(s) Supporting Document(s) ID Date Data Source [id number] 04/27/2019 04:17:48 PM EST [place] - [facility] Name Value Range Interpretation Code Description Data Arianne rce(s) Supporting Document(s) D-Dimer 450 ng/mL FEU <=499 [place] L ourdes - [facility] * Diagnosis should not be based solely o n the results of this test.Results should be interpreted in conjunction with clinical findings.Negative Predictive Value for thromboembolism for D-Dimer test results below the cut off of 500 ng/ml FEU is 98%. ID Date Data Source [id number] 04/27/2019 02:39:21 PM EST [place] - [facility] Name Value Range Interpretation Code Description Data Arianne rce(s) Supporting Document(s) Serum Qualitative Negative [place] [facility] - [facility] ID Date Data Source [id number] 04/27/2019 02:26:23 PM EST [place] - [facility] Name Value Range Interpretation Code Description Data Arianne rce(s) Supporting Document(s) GFR-KIEL >60 mL/min/1.73m2 >=60 [facility] eGFR added on by Discern Expert.* GFR-NA [...] [facility] ID Date Data Source [id number] 04/27/2019 02:26:22 PM EST [place] Tonja [place] - [facility] Name Value Range Interpretation Code Description Data Arianne rce(s) Supporting Document(s) Troponin-I <0.02 ng/mL <=0.04 [place] - [facility] Normal: <0.04 ng/mLIschemic disease: 0.04-0.10 ng/mLConsistent with AMI: > 0.10 ng/mLPatients taking Biotin supplements in excess of the daily recommended allowance, may have falsely elevated results due to interference of Biotin in the assay measurement. ID Date Data Source [id number] 04/27/2019 02:26:21 PM EST [place] Tonja [place] - [facility] Name Value Range Interpretation Code Description Data Arianne rce(s) Supporting Document(s) Sodium Level 140 mmol/L 136-144 [place] Lo urdes - [facility] Potassium Level 3.9 mmol/L 3.6-5.1 [place] [facility] - [facility] Chloride 111 mmol/L 98-110 Above high normal [facility] CO2 20 mmol/L 22-32 Below low normal [facility] AGAP 9 mEq/L 4-14 [place] [place] Lour lorraine - [facility] Glucose Level. 114 mg/dL 65-100 Above high normal Asc ension Sarah - [facility] If patient is taking either of these dominguez gs, there has been a bias identified:Sulfasalazine may cause falsely decreased resultsSulfaspyridine may cause falsely increased results BUN 11 mg/dL 8-23 [place] Lour lorraine - [facility], [facility] Creatinine 0.67 mg/dL 0.40-1.10 [place] Lour lorraine - [facility], [facility] Calcium 9.2 mg/dL 8.5-10.5 [place] Lour lorraine - [facility], [facility] Total Protein 7.6 gm/dL 6.4-8.2 [place] L ourdes - [facility], [facility] Globulin 3.6 gm/dL 1.5-3.8 [place] Lour lorraine - [facility], [facility] Albumin Level 4.0 gm/dL 3.3-4.8 [place] L ourdes - [facility], [facility] Bilirubin Total. 0.1 mg/dL 0.2-1.0 Below low normal As cension Sarah - [facility], [facility] AST 12 unit/L 15-41 Below low normal Ascensio n Sarah - [facility], [facility] If patient is taking either of these dominguez gs, there has been a bias identified:Sulfasalazine may cause falsely decreased resultsSulfaspyridine may cause falsely decreased results Alk Phos 88 unit/L 45-117 [place] Lour lorraine - [facility], [facility] ALT 28 unit/L 14-54 [place] Lour lorraine - [facility], [facility] If patient is taking either of these dominguez gs, there has been a bias identified:Sulfasalazine may cause falsely decreased resultsSulfaspyridine may cause falsely decreased results ID Date Data Source [id number] 04/27/2019 02:07:48 PM EST [place] Tonja rdes - [facility], [facility] Name Value Range Interpretation Code Description Data Arianne rce(s) Supporting Document(s) WBC 8.3 K/uL 4.0-10.0 [place] Lour lorraine - [facility], [facility] RBC 4.80 Million/mcL 4.20-5.40 [facility] - [facility], [facility] Hgb 13.3 gm/dL 12.0-16.0 [place] Lour lorraine - [facility], [facility] Hct 39.7 % 36.0-47.0 [place] Lour lorraine - [facility], [facility] MCV 82.7 fL 82.0-98.0 [place] Lour lorraine - [facility], [facility] MCH 27.8 pg 26.0-33.0 [place] Lour lorraine - [facility], [facility] MCHC 33.6 gm/dL 32.0-36.0 [place] Lour lorraine - [facility], [facility] RDW 13.8 % 11.4-14.4 [place] Lour lorraine - [facility], [facility] Platelet 314 K/mcL 150-400 [place] Lour lorraine - [facility], [facility] MPV 8.9 fL 7.4-10.4 [place] Lour lorraine - [facility], [facility] ID Date Data Source [id number] 04/27/2019 02:07:48 PM EST [place] Tonja rdes - [facility], [facility] Name Value Range Interpretation Code Description Data Arianne rce(s) Supporting Document(s) Neutrophils, auto 54.2 % 40.0-80.0 [facility] - [facility], [facility] Neutrophils, absolute 4.5 K/mcL 1.5-7.7 [facility] Sarah - [facility], [facility] Lymphocytes, auto 35.8 % 15.0-40.0 [facility] - [facility], [facility] Lymphocytes, absolute 3.0 K/mcL 1.5-4.0 [facility] Sarah - [facility], [facility] Monocytes, auto 7.1 % 0.0-12.0 [place] Sarah - [facility], [facility] Monocytes, absolute 0.6 K/mcL 0.2-1.0 Ascen darren Sarah - [facility], [facility] Eosinophils, auto 1.9 % 0.0-5.0 [facility] - [facility] Eosinophils, absolute 0.2 K/mcL 0.0-0.3 [facility] - [facility] Basophils, auto 1.0 % 0.0-2.0 [place] Sarah - [facility] Basophils, absolute 0.1 K/mcL 0.0-0.1 Ascen darren Sarah - [facility] ID Date Data Source [id number] 04/24/2019 10:34:40 AM EST [place] Tonja rdes - [facility] EXAM:XR KNEE 1 OR 2 VIEWS LEFTMARIA ELENAING P ROVIDER:TAHIRA Bella PACLINICAL HISTORY:Pain.COMPARISON STUDY:11/02/2018TECHNIQUE: 2 [...] Thank you for referring your patient to [facility]. Name Value Range Interpretation Code Description Data Arianne rce(s) Supporting Document(s) ID Date Data Source [id number] 04/10/2019 03:08:28 PM EST [place] Tonja rddallin - [facility] BERKLEY LOPEZ [facility] is a pleasant pat ient of Dr. [...] prepped with chlorhexidine 1%. Using ultrasound assistance, [id number] Tuohy epiduralneedle was inserted towards the adductor [...] rce(s) Supporting Document(s) ID Date Data Source [id number] 04/10/2019 03:02:28 PM EST [place] Tonja florez - [facility] [place] LREPORT OF OPERATION DA TE OF PROCEDURE: [...] limb was e xsanguinated with Esmarch andtourniquet mmHg. I then began with a standard [...] DRAINS/PACKS:none This operative report was dictated using femeninas software. Every attempt tocorrect verbalinaccuracies have been made.This document was authenticated by Salma Alvarado MD MD on04/10/2019 03:02 PM Name Value Range Interpretation Code Description Data Arianne rce(s) Supporting Document(s) ID Date Data Source [id number] 04/10/2019 02:41:43 PM EST [place] Tonja florez - [facility] EXAM:XR KNEE 1 OR 2 VIEWS LEFTBENIGNO VALDIVIA:MD Salma Alvarado MDCLINICAL HISTORY:Intraoperative fluoroscopy.COMPARISON STUDY:None.TECHNIQUE:4 images. 58 seconds of fluoroscopy.FINDINGS: Fluoroscopic documentation of procedure without radiologist present. Pleasesee the operative report.IMPRESSION: Intraoperative fluoroscopy This document has been authenticated by José Ma MD on 04/10/2019 2:39PM. Thank you for referring your patient to [facility]. Name Value Range Interpretation Code Description Data Arianne rce(s) Supporting Document(s) ID Date Data Source [id number] 04/10/2019 08:12:36 PM EST [place] Tonja rdes - [facility] Name Value Range Interpretation Code Description Data Arianne rce(s) Supporting Document(s) Finger Stick Blood Sugar 95 mg/dL 65-100 [place] Sarah - [facility] The POC Glucose meter technical range is 30 - 550 mg/dLA glucose less than 30 mg/dLwill chart as CORBY glucose greater than 550 mg/dL will display as HI ID Date Data Source [id number] 04/03/2019 04:39:33 PM EST [place] Tonja rdes - [facility] BERKLEY LOPEZ LHISTORY SOURCE:Patient and nurse's notes reviewedCHIEF COMPLAINT:Pt reports left lower abdominal pain, vomiting blood tinged fluids, and unableto urinate [id number] last night. Pt reports hx of urinary [...] 1.3 .9 12:55 Basophils, auto 04/03/19 0.7 .8 12:55 MACROSCOPIC LATEST RESULTS HISTORICALRESULTSUA Color 04/03/19 Yellow 11/28/18Yellow 14:01 UA Clarity 04/03/19 Clear 11/28/18Cloudy Abnormal 14:01 UA Specific [place] 04/03/19 1.027 High .029 High 14:01 UA [...] CHEMISTRY LATEST RESULTS HISTORICALRESULTSSodium Level 04/03/19 140 40 12:55 Potassium Level 04/03/19 3.7 .6 12:55 Chloride 02/0 05/18 112 High High [...] PM.Thank you for referring your patient to [facility]. Signed By: Abdi Lerma MD COURSE: Medication Dose Route Frequency Sodium Chloride [...] rce(s) Supporting Document(s) ID Date Data Source [id number] 04/03/2019 02:24:26 PM EST [place] Tonja florez - [facility] EXAM:Noncontrast CT of the abdomen and p [...] Thank you for referring your patient to [facility]. Name Value Range Interpretation Code Description Data Arianne rce(s) Supporting Document(s) ID Date Data Source [id number] 04/05/2019 09:25:49 AM EST [place] Tonja florez - [facility] Name BERKLEY LOPEZ hdate 2000Sex FEMALE Age 18 yearsPatient Acct. No. [id number] ER OLLAttending ER Physician Fabrice LINARES, [facility] Care Physician DINORAH DOOLEYMicrobiologyS = Susceptible [...] Predominating PathogenPerforming Locationsf1: This test was performed at:[facility], [address] [place] [address], [facility]- Name Value Range Interpretation Code Description Data Arianne rce(s) Supporting Document(s) ID Date Data Source [id number] 04/03/2019 02:14:00 PM EST [place] Tonja rdes - [facility] Name Value Range Interpretation Code Description Data Arianne rce(s) Supporting Document(s) UA Squamous Epithelial Cells <2 /HPF 0-5 [place] Sarah - [facility] Added as per Lab reflex policy GL_UA_MIC RO_AV_R_UC UA WBC w/UC 2 /HPF 0-5 [place] Tonja rdes - [facility] UA RBC <2 /HPF 0-2 [place] Lour lorraine - [facility] UA Mucous Absent [place] Lour lorraine - [facility] ID Date Data Source [id number] 04/03/2019 02:07:51 PM EST [place] Tonja rdes - [facility] Name Value Range Interpretation Code Description Data Arianne rce(s) Supporting Document(s) UA Color Yellow [place] Lour lorraine - [facility] UA Clarity Clear [place] Lour lorraine - [facility] UA pH 5.0 5.0-8.0 [place] Lour lorraine - [facility] UA Specific [place] 1.027 1.005-1.025 Above high normal [place] Sarah - [facility] UA Leuk w/uc Negative AB [place] Lo urdes - [facility] UA Nitrite w/UC Negative [place] Sarah - [facility] UA Blood w/UC Negative [place] L ourdes - [facility] UA Bilirubin Negative [place] Lo urdes - [facility] If the dipstick bilirubin results are 'P resumptive Positive' the result will be confirmed with an Ictotest due to possible interference. UA Urobilinogen Normal [place] Sarah - [facility] UA Glucose Normal [place] Lour lorraine - [facility] UA Ketones Negative [place] Lour lorraine - [facility] UA Protein w/UC Negative [place] Sarah - [facility] UA Ascorbic Acid Negative Ascensio n Sarah - [facility] The presence of ascorbic acid may interf ere with the detection of blood, glucose, nitrite and bilirubin on the biochemical strip. Detectable limits of >20mg/dL will reflex a microscopic exam. ID Date Data Source [id number] 04/03/2019 01:48:27 PM EST [place] Tonja rdes - [facility] JESSICA BERKLEY LChief Complaint: Patie nt states that for [...] document was authenticated by Jennifer Dukes FNP FNP on 04/03/201912:29 PMSent for Co-authentication by Nilton Willson DO DO Co-authenticatedon 04/03/2019 01:48 PM Name Value Range Interpretation Code Description Data Arianne rce(s) Supporting Document(s) ID Date Data Source [id number] 04/03/2019 03:16:39 PM EST [place] Tonja rdes - [facility] Name Value Range Interpretation Code Description Data Arianne rce(s) Supporting Document(s) Lipase Level 103 unit/L 73-393 [place] Lo urdes - [facility] ID Date Data Source [id number] 04/03/2019 03:16:41 PM EST [place] Tonja rdes - [facility] Name Value Range Interpretation Code Description Data Arianne rce(s) Supporting Document(s) GFR-KIEL >60 mL/min/1.73m2 >=60 [facility] - [facility] eGFR added on by Discern Expert.* GFR-NA [...] [facility]i on Sarah - [facility], [facility] ID Date Data Source [id number] 04/03/2019 03:16:39 PM EST [place] Tonja rdes - [facility], [facility] Name Value Range Interpretation Code Description Data Arianne rce(s) Supporting Document(s) C-Reactive Protein. 1.0 mg/dL <=1.0 Ascen darren Sarah - [facility], [facility] ID Date Data Source [id number] 04/03/2019 03:16:39 PM EST [place] Tonja rdes - [facility] Name Value Range Interpretation Code Description Data Arianne rce(s) Supporting Document(s) Sodium Level 140 mmol/L 136-144 [place] Lo urdes - [facility], [facility] Potassium Level 3.7 mmol/L 3.6-5.1 [place] Sarah - [facility], [facility] Chloride 112 mmol/L 98-110 Above high normal [facility] - [facility], [facility] CO2 21 mmol/L 22-32 Below low normal [facility] Sarah - [facility], [facility] AGAP 7 mEq/L 4-14 [place] Lour lorraine - [facility], [facility] Glucose Level. 148 mg/dL 65-100 Above high normal Asc ension Sarah - [facility], [facility] If patient is taking either of these dominguez gs, there has been a bias identified:Sulfasalazine may cause falsely decreased resultsSulfaspyridine may cause falsely increased results BUN 13 mg/dL 8-23 [place] Lour lorraine - [facility], [facility] Creatinine 0.67 mg/dL 0.40-1.10 [place] Lour lorraine - [facility], [facility] Calcium 9.4 mg/dL 8.5-10.5 [place] Lour lorraine - [facility], [facility] Total Protein 7.6 gm/dL 6.4-8.2 [place] L ourdes - [facility], [facility] Globulin 3.6 gm/dL 1.5-3.8 [place] Lour lorraine - [facility], [facility] Albumin Level 4.0 gm/dL 3.3-4.8 [place] L ourdes - [facility], [facility] Bilirubin Total. 0.3 mg/dL 0.2-1.0 [facility] Sarah - [facility], [facility] AST 13 unit/L 15-41 Below low normal [facility] Sarah - [facility] If patient is taking either of these dominguez gs, there has been a bias identified:Sulfasalazine may cause falsely decreased resultsSulfaspyridine may cause falsely decreased results Alk Phos 89 unit/L 45-117 [place] Krishna lorraine - [facility], [facility] ALT 32 unit/L 14-54 [place] Lozenon lorraine - [facility] If patient is taking either of these dominguez gs, there has been a bias identified:Sulfasalazine may cause falsely decreased resultsSulfaspyridine may cause falsely decreased results ID Date Data Source [id number] 04/03/2019 01:23:25 PM EST [place] Tonja rdes - [facility] Name Value Range Interpretation Code Description Data Arianne rce(s) Supporting Document(s) Serum Qualitative Negative [place] Sarah - [facility] ID Date Data Source [id number] 04/03/2019 01:03:11 PM EST [place] Tonja rdes - [facility], [facility] Name Value Range Interpretation Code Description Data Arianne rce(s) Supporting Document(s) WBC 8.1 K/uL 4.0-10.0 [place] Lour lorraine - [facility], [facility] RBC 4.84 Million/mcL 4.20-5.40 [facility] Sarah - [facility], [facility] Hgb 13.3 gm/dL 12.0-16.0 [place] Lour lorraine - [facility], [facility] Hct 40.0 % 36.0-47.0 [place] Lour lorraine - [facility], [facility] MCV 82.7 fL 82.0-98.0 [place] Lour lorraine - [facility], [facility] MCH 27.4 pg 26.0-33.0 [place] Lour lorraine - [facility], [facility] MCHC 33.1 gm/dL 32.0-36.0 [place] Lour lorraine - [facility], [facility] RDW 14.1 % 11.4-14.4 [place] Lour lorraine - [facility], [facility] Platelet 302 K/mcL 150-400 [place] Lour lorraine - [facility], [facility] MPV 9.2 fL 7.4-10.4 [place] Lour lorraine - [facility], [facility] ID Date Data Source [id number] 04/03/2019 01:03:11 PM EST [place] Tonja rdes - [facility], [facility] Name Value Range Interpretation Code Description Data Arianne rce(s) Supporting Document(s) Neutrophils, auto 58.3 % 40.0-80.0 [facility] - [facility], [facility] Neutrophils, absolute 4.7 K/mcL 1.5-7.7 Asc ension Sarah - [facility], [facility] Lymphocytes, auto 34.4 % 15.0-40.0 [facility] - [facility], [facility] Lymphocytes, absolute 2.8 K/mcL 1.5-4.0 Asc ension Sarah - [facility], [facility] Monocytes, auto 5.3 % 0.0-12.0 [place] Sarah - [facility], [facility] Monocytes, absolute 0.4 K/mcL 0.2-1.0 Ascen darren Sarah - [facility], [facility] Eosinophils, auto 1.3 % 0.0-5.0 [facility] - [facility] Eosinophils, absolute 0.1 K/mcL 0.0-0.3 [facility] Sarah - [facility] Basophils, auto 0.7 % 0.0-2.0 [place] Sarah - [facility] Basophils, absolute 0.1 K/mcL 0.0-0.1 Ascen darren Sarah - [facility] ID Date Data Source [id number] 03/30/2019 04:42:08 PM EST [place] Tonja rdes - [facility] BERKLEY LOPEZ LPATIENT IDENTIFICATION :[facility] LMedical Record Number: [id number] Of : 2000CHIEF COMPLAINT:rm 6 has been [...] (03/26/19)Protein Urine Dipstick POC Clinic: Negative (03/26/19)Specific [place] Dipstick POC Clinic: 1.030 (03/26/19)Urobilinogen Urine Dipstick [...] good understanding. *This note was completed using TradingViewation System. Reasonable attemptshave been made tocorrect errors. Please excuse any typographical errors. For clarifications,please contact ouroffice. Ordered:nitrofurantoin, 100 mg = 1 cap(s), PO (oral), bid, # 10 cap(s), Maintenance,Pharmacy: [facility]/pharmacy #[id number], 1 cap(s) PO (oral) bid,x5 da [...] rce(s) Supporting Document(s) ID Date Data Source [id number] 03/28/2019 07:35:16 AM EST [place] Tonja florez - [facility] Name BERKLEY LOPEZ hdate 2000Sex FEMALE Age 18 yearsPatient Acct. No. [id number] LCB OLLAttending ER Physician Zee Gonzalez FNPPrieastpointe hospital Care Physician DINORAH DOOLEYMicrobiologyS = Susceptible I [...] Predominating PathogenPerforming Locationsf1: This test was performed at:[facility], [address] [place] [address], [facility]- Name Value Range Interpretation Code Description Data Arianne rce(s) Supporting Document(s) ID Date Data Source [id number] 02/18/2019 05:02:53 PM EST [place] Tonja florez - [facility], [facility] S[facility]:History is from patient I reviewed the [...] well-nourished woman who appears her stated age. Njvhir-an-izjqybllpnuzfvda.HEAD: Normocephalic/atraumatic.EYES: Pupils equal round reactive to light [...] CHEMISTRY LATEST RESULTS HISTORICALRESULTSSodium Level 02/18/19 140 10:13 Potassium Level 02/18/19 3.6 .0 10:13 Chloride 02/18/19 112 High 10:13 CO2 [...] rce(s) Supporting Document(s) ID Date Data Source [id number] 02/18/2019 12:31:16 PM EST [place] Tonja florez - [facility], [facility] EXAM:CT ABD/PELVIS W/IV ONLY CONTRAST OR DERING [...] Thank you for referring your patient to [facility]. Name Value Range Interpretation Code Description Data Arianne rce(s) Supporting Document(s) ID Date Data Source [id number] 02/18/2019 11:09:02 AM EST [place] Tonja rddallin - [facility] EXAM: US PELVIS TRANSVAGINAL ONLY ORDERI NG [...] rce(s) Supporting Document(s) ID Date Data Source [id number] 02/18/2019 10:47:32 AM EST [place] Tonja rddallin - [facility] Name Value Range Interpretation Code Description Data Arianne rce(s) Supporting Document(s) APTT 27 second(s) 24-33 [place] Christen urlorraine - [facility] Suggested therapeutic range for unfracti onated Heparin is 2 to 2.5 times the mean normal value. Levels below 60 seconds may indicate insufficient anticoagulant.For therapeutic monitoring of various direct thrombin inhibitors, please refer to Micromedex or LexiComp on the [facility] Intranet. ID Date Data Source [id number] 02/18/2019 11:07:49 AM EST [place] Tonja rdes - [facility] Name Value Range Interpretation Code Description Data Arianne rce(s) Supporting Document(s) Serum Qualitative Negative [place] Sarah - [facility] ID Date Data Source [id number] 02/18/2019 10:46:47 AM EST [place] Tonja rdes - [facility] Name Value Range Interpretation Code Description Data Arianne rce(s) Supporting Document(s) Lipase Level 96 unit/L 73-393 [place] Christen holliday - [facility] ID Date Data Source [id number] 02/18/2019 10:46:47 AM EST [place] Tonja rdes - [facility] Name Value Range Interpretation Code Description Data Arianne rce(s) Supporting Document(s) C-Reactive Protein. 3.3 mg/dL <=1.0 Above high normal [place] [facility] ID Date Data Source [id number] 02/18/2019 10:46:48 AM EST [place] Tonja rdes - [facility] Name Value Range Interpretation Code Description Data Arianne rce(s) Supporting Document(s) GFR-[id number] >60 mL/min/1.73m2 >=60 [facility] eGFR added on by Discern Expert.* [id number] [...] [facility], [facility] ID Date Data Source [id number] 02/18/2019 10:46:46 AM EST [place] Tonja [facility] - [facility], [facility] Name Value Range Interpretation Code Description Data Arianne rce(s) Supporting Document(s) Sodium Level 140 mmol/L 136-144 [place] Lo urlorraine - [facility], [facility] Potassium Level 3.6 mmol/L 3.6-5.1 [place] Sarah - [facility], [facility] Chloride 112 mmol/L 98-110 Above high normal [facility], [facility] CO2 24 mmol/L 22-32 [place] Lozenon lorraine - [facility], [facility] AGAP 4 mEq/L 4-14 [place] Lozenon peters - [facility], [facility] Glucose Level. 91 mg/dL 65-100 [place] Sarah - [facility], [facility] If patient is taking either of these dominguez gs, there has been a bias identified:Sulfasalazine may cause falsely decreased resultsSulfaspyridine may cause falsely increased results BUN 15 mg/dL 8-23 [place] Lour lorraine - [facility], [facility] Creatinine 0.80 mg/dL 0.40-1.10 [place] Lour lorraine - [facility], [facility] Calcium 8.9 mg/dL 8.5-10.5 [place] Lour lorraine - [facility], [facility] Total Protein 7.1 gm/dL 6.4-8.2 [place] L laurides - [facility], [facility] Globulin 3.5 gm/dL 1.5-3.8 [place] Lozenon peters - [facility], [facility] Albumin Level 3.6 gm/dL 3.3-4.8 [place] L ourdes - [facility], [facility] Bilirubin Total. 0.4 mg/dL 0.2-1.0 [facility], [facility] AST 11 unit/L 15-41 Below low normal [facility] If patient is taking either of these dominguez gs, there has been a bias identified:Sulfasalazine may cause falsely decreased resultsSulfaspyridine may cause falsely decreased results Alk Phos 93 unit/L 45-117 [place] Lour lorraine - [facility], [facility] ALT 47 unit/L 14-54 [place] Lour lorraine - [facility] If patient is taking either of these dominguez gs, there has been a bias identified:Sulfasalazine may cause falsely decreased resultsSulfaspyridine may cause falsely decreased results ID Date Data Source [id number] 02/18/2019 10:46:46 AM EST [place] [facility] - [facility] Name Value Range Interpretation Code Description Data Arianne rce(s) Supporting Document(s) Amylase Level 28 unit/L 28-100 [place] L zee - [facility] ID Date Data Source [id number] 02/18/2019 10:17:55 AM EST [place] [facility] - [facility] Name Value Range Interpretation Code Description Data Arianne rce(s) Supporting Document(s) WBC 6.6 K/uL 4.0-10.0 [place] Lour lorraine - [facility], [facility] RBC 4.50 Million/mcL 4.20-5.40 [facility], [facility] Hgb 12.4 gm/dL 12.0-16.0 [place] Lour lorraine - [facility], [facility] Hct 37.2 % 36.0-47.0 [place] Lour lorraine - [facility], [facility] MCV 82.6 fL 82.0-98.0 [place] Lour lorraine - [facility], [facility] MCH 27.5 pg 26.0-33.0 [place] Lour lorraine - [facility] MCHC 33.3 gm/dL 32.0-36.0 [place] Lour lorraine - [facility], [facility] RDW 13.7 % 11.4-14.4 [place] Lour lorraine - [facility] Platelet 272 K/mcL 150-400 [place] Lour lorraine - [facility], [facility] MPV 8.3 fL 7.4-10.4 [place] Lour lorraine - [facility] ID Date Data Source [id number] 02/18/2019 10:17:54 AM EST [place] Tonja [facility] - [facility] Name Value Range Interpretation Code Description Data Arianne rce(s) Supporting Document(s) Neutrophils, auto 63.8 % 40.0-80.0 [facility] Neutrophils, absolute 4.2 K/mcL 1.5-7.7 [facility] Sarah - [facility] Lymphocytes, auto 23.6 % 15.0-40.0 [facility] Lymphocytes, absolute 1.6 K/mcL 1.5-4.0 [facility] - [facility] Monocytes, auto 10.9 % 0.0-12.0 [place] Sarah - [facility] Monocytes, absolute 0.7 K/mcL 0.2-1.0 [facility] Sarah - [facility] Eosinophils, auto 0.9 % 0.0-5.0 [facility], [facility] Eosinophils, absolute 0.1 K/mcL 0.0-0.3 [facility] - [facility] Basophils, auto 0.8 % 0.0-2.0 [place] Sarah - [facility] Basophils, absolute 0.1 K/mcL 0.0-0.1 [facility] Sarah - [facility] Procedure Social History Code Duration Value Status Description Data Source(s ) Alcohol intake 12/20/2019 12:00:00 AM EDT Current non-d chana of alcohol (finding) completed Current non-drinker of alcohol (finding) [facility] Tobacco use and exposure 12/20/2019 12:00:00 AM EDT Never used co mpleted Never used [facility] Smoking 12/20/2019 12:00:00 AM EDT Never smoker completed Never s moker [facility] 06/29/2019 12:00:00 AM EDT Patient is a current smoker, smokes every day completed Patient is a current smoker, smokes every day [facility] ( [facility]) ASSERTION 05/08/2019 12:00:00 AM EDT soda and coffee completed soda and coffee [facility] Vital Signs ID Date Data Source UNK Name Value Range Interpretation Code Description Data Source(s) Body weight Measured 240 lb 14 oz 240 lb 14 oz [place] Sarah - [facility] 2Result Comment: Result placed secondary from kg, converted to lbs Body height 66.0 [in_i] 66.0 [in_i] [place] Jessica koch - [facility] 1Result Comment: Result placed secondary from cm, converted to Inches Deprecated Oxygen saturation in Capillary blood by Oximetry 98 % 90-100 Normal (applies to non-numeric results) 98 % [place] Sarah - [facility] Heart rate 100 /min 60-100 Normal (applies to non-numeric resul ts) 100 /min [place] Sarah - [facility] Systolic blood pressure 90-140 Normal (applies t o non-numeric results) mm[Hg] [place] Sarah - [facility] Body temperature 98.6 [degF] 97.9-99.7 Normal (applies to non-n umeric results) 98.6 [degF] [place] Sarah - [facility] Deprecated Oxygen saturation in Capillary blood by Oximetry 97 % 90-100 Normal (applies to non-numeric results) 97 % [place] Sarah - [facility] Respiratory rate 20 /min 14-20 Normal (applies to non-numeric results) 20 /min [place] Sarah - [facility] Heart rate 104 /min 60-100 Above high normal 104 /min [facility] Systolic blood pressure 90-140 Normal (applies t o non-numeric results) mm[Hg] [place] Sarah - [facility] Body temperature 98.4 [degF] 97.9-99.7 Normal (applies to non-n umeric results) 98.4 [degF] [place] Sarah - [facility] Body weight Measured 244 lb 8 oz 244 lb 8 oz [facility] - [facility] 2Result Comment: Result placed secondary from kg, converted to lbs Body height 66.0 [in_i] 66.0 [in_i] [place] L zee - [facility] 1Result Comment: Result placed secondary from cm, converted to Inches Deprecated Oxygen saturation in Capillary blood by Oximetry 97 % 90-100 Normal (applies to non-numeric results) 97 % [place] Sarah - [facility] Respiratory rate 20 /min 14-20 Normal (applies to non-numeric results) 20 /min [place] Sarah - [facility] Heart rate 104 /min 60-100 Above high normal 104 /min [facility] Systolic blood pressure 90-140 Normal (applies t o non-numeric results) mm[Hg] [place] Sarah - [facility], [facility] Body temperature 98.4 [degF] 97.9-99.7 Normal (applies to non-n umeric results) 98.4 [degF] [place] Sarah - [facility] Body weight Measured 244 lb 8 oz 244 lb 8 oz As [facility] Sarah - [facility] 2Result Comment: Result placed secondary from kg, converted to lbs Body height 66.0 [in_i] 66.0 [in_i] [place] L zee - [facility] 1Result Comment: Result placed secondary from cm, converted to Inches Body mass index (BMI) [Ratio] 38.96 kg/meter(2) Overweight 38.96 kg/meter(2) [facility] Respiratory rate 18 /min 18 /min [facility] Body temperature 97.90 [degF] 97.90 [degF] Unit [facility] Heart rate 94 /min 94 /min [facility] Diastolic blood pressure 84 mm[Hg] 84 mm[Hg] [facility] Systolic blood pressure 138 mm[Hg] 138 mm[Hg] [facility] Body weight Measured 241.41 [lb_av] 241.41 [lb_ av] [facility] Body height 66.00 [in_us] 66.00 [in_us] [facility] Body weight Measured 241 lb 7 oz 241 lb 7 oz As [facility] Sarah - [facility] 2Result Comment: Result placed secondary from kg, converted to lbs Body height 66.0 [in_i] 66.0 [in_i] [place] L zee - [facility] 1Result Comment: Result placed secondary from cm, converted to Inches Deprecated Oxygen saturation in Capillary blood by Oximetry 98 % 90-100 Normal (applies to non-numeric results) 98 % [place] Sarah - [facility] Respiratory rate 20 /min 14-20 Normal (applies to non-numeric results) 20 /min [place] Sarah - [facility] Heart rate 97 /min 60-100 Normal (applies to non-numeric resul ts) 97 /min [place] Sarah - [facility] Systolic blood pressure 90-140 Normal (applies t o non-numeric results) mm[Hg] [place] Sarah - [facility] Body temperature 98.1 [degF] 97.9-99.7 Normal (applies to non-n umeric results) 98.1 [degF] [place] Sarah - [facility] Body weight Measured 241 lb 7 oz 241 lb 7 oz [facility] Sarah - [facility] 2Result Comment: Result placed secondary from kg, converted to lbs Body height 66.0 [in_i] 66.0 [in_i] [place] L zee - [facility] 1Result Comment: Result placed secondary from cm, converted to Inches Deprecated Oxygen saturation in Capillary blood by Oximetry 98 % 90-100 Normal (applies to non-numeric results) 98 % [place] Sarah - [facility] Respiratory rate 20 /min 14-20 Normal (applies to non-numeric results) 20 /min [place] Sarah - [facility] Heart rate 97 /min 60-100 Normal (applies to non-numeric resul ts) 97 /min [place] Sarah - [facility] Systolic blood pressure 90-140 Normal (applies t o non-numeric results) mm[Hg] [place] Sarah - [facility] Body temperature 98.1 [degF] 97.9-99.7 Normal (applies to non-n umeric results) 98.1 [degF] [place] Sarah - [facility] Patient Treatment Plan of Care Planned Activity Planned Date Details Description Data Source (s) Flonase Allergy Relief 50 mcg/actuation nasal spray,dickinson spension 06/08/2016 12:00:00 AM EDT [facility] Previfem 0.25 mg-35 mcg tablet [facility] Lactobacillus rhamnosus GG [id number] UNT Oral Capsule [facility] trazodone 50 mg tablet Unite [facility] Hyoscyamine Sulfate 0.125 MG/ML Oral Solution [facility] Briellyn 0.4 mg-35 mcg tablet [facility] Clonazepam 1 MG Oral Tablet [facility] methylphenidate ER 50 mg multiphase capsule 30-70,extended release [facility] Metformin hydrochloride 500 MG Oral Tablet [facility]
[2020-03-12] MEDS ORDERED: NS 1,000 ML IV ONE (21:15)
[2020-03-12] MEDS ORDERED: ONDANSETRON 4MG/2ML VIAL IV ONE (21:15)
[2020-03-12] MEDS ORDERED: MORPHINE 4 MG/ML 1ML VIAL/SYRINGE (J2270) IV ONE (21:15)
[2020-03-12 21:25] LABS: BASO # 0.1 10^3/uL (0.0-0.2); BASO % 0.5 % (0.0-1.0); EOS # 0.3 10^3/uL (0.0-0.5); EOS % 2.6 % (0.0-3.0); HEMATOCRIT 39.6 % (36.0-47.0); HEMOGLOBIN 12.4 g/dl (12.0-15.5); LYMPH # 3.4 10^3/uL (1.5-5.0); LYMPH % 35.3 % (24.0-44.0); MEAN CORPUSCULAR HEMOGLOBIN 27.7 pg (27.0-33.0); MEAN CORPUSCULAR HGB CONC 31.3 g/dl (32.0-36.5); MEAN CORPUSCULAR VOLUME 88.6 fl (80.0-96.0); MONO # 0.6 10^3/uL (0.0-0.8); MONO % 6.5 % (0.0-5.0); NEUTROPHILS # 5.4 10^3/uL (1.5-8.5); NEUTROPHILS % 54.9 % (36.0-66.0); PLATELET COUNT, AUTOMATED 290 10^3/uL (150-450); RED BLOOD COUNT 4.47 10^6/uL (4.00-5.40); WHITE BLOOD COUNT 9.7 10^3/uL (4.0-10.0)
[2020-03-12 21:59] LABS: ALBUMIN 3.9 GM/DL (3.2-5.2); ALT/SGPT 25 U/L (12-78); BILIRUBIN,DIRECT < 0.1 MG/DL (0.0-0.2); BILIRUBIN,TOTAL 0.2 MG/DL (0.2-1.0); LIPASE 72 U/L (73-393)
--- NOTE | 2020-03-12 22:31 | REPVR ---
PROCEDURE INFORMATION: Exam: CT Abdomen And Pelvis Without Contrast Exam date and time: 03/12/2020 9:59 PM Age: 19 years old Clinical indication: Abdominal pain; Flank; Left; Additional info: Left flank pain TECHNIQUE: Imaging protocol: Computed tomography of the abdomen and pelvis without contrast. Radiation optimization: All CT scans at this facility use at least one of these dose optimization techniques: automated exposure control; mA and/or kV adjustment per patient size (includes targeted exams where dose is matched to clinical indication); or iterative reconstruction. COMPARISON: No relevant prior studies available. FINDINGS: Liver: Normal. No mass. Gallbladder and bile ducts: Normal. No calcified stones. No ductal dilation. Pancreas: Normal. No ductal dilation. Spleen: Normal. No splenomegaly. Adrenal glands: Normal. No mass. Kidneys and ureters: No urolithiasis. Stomach and bowel: Unremarkable. No obstruction. No mucosal thickening. Appendix: No evidence of appendicitis. Intraperitoneal space: Small amount of adjacent free fluid, question ruptured cyst. Vasculature: Unremarkable. No abdominal aortic aneurysm. Lymph nodes: Unremarkable. No enlarged lymph nodes. Urinary bladder: Unremarkable as visualized. Reproductive: Prominent right ovary measuring approximately 4.4 cm. Bones/joints: Partial sacralization of L5. L4-L5 small central disc extrusion with mild moderate stenosis. Soft tissues: Unremarkable. IMPRESSION: 1. Prominent right ovary measuring approximately 4.4 cm. Small amount of adjacent free fluid, question ruptured cyst. 2. No urolithiasis. 3. Partial sacralization of L5. L4-L5 small central disc extrusion with mild moderate stenosis. Electronically signed by: Vladimir Gonzalez On 03/12/2020 22:31:56 PM
[2020-03-12] MEDS ORDERED: LIDOCAINE 2% 5ML JELLY UROJET TOP ONE (22:45)
[2020-03-12 23:26] VITALS: BP 135/80
== END 2020-03-12 23:39 | disposition home or self-care (01) ==
LOC: M ED 19:15
DX: R10.9 Unspecified abdominal pain (principal); R33.9 Retention of urine, unspecified; R11.0 Nausea; M51.26 Other intervertebral disc displacement, lumbar region; G40.909 Epilepsy, unspecified, not intractable, without status epilepticus; Z88.0 Allergy status to penicillin; Z79.899 Other long term (current) drug therapy
CPT/HCPCS: 51702; 74176; 80047; 80076; 81001; 83690; 84702; 85025; 87086; 96361; 96374; 96375; 99284; J2270; J2405

== ENCOUNTER 2020-03-14 23:00 | Emergency (ER) | payer OTHER ==
[~2020-03-14] VITALS: Ht 167.6 cm; Wt 102.8 kg
--- OUTSIDE RECORDS SUMMARY | 2020-03-14 23:08 | CCD ---
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 Name Role Phone Kathy Bowers Unavailable Unavailable CAM PRINCE MD Unavailable Unavailable [...] ZAYAS Unavailable Unavailable Kathy WIN Unavailable Unavailable uDstin LINARES, Physician Maryann Gee Unavailable Unavailable Theron DOBSON Unavailable Unavailable Tere Mckenna MD Unavailable Unavailable Tere Mckenna MD Unavailable Unavailable Tere Mckenna MD Unavailable Unavailable CROWDER, ANANYA DO Unavailable Unavailable CROWDER, ANANYA DO Unavailable Unavailable CROWDER, ANANYA DO Unavailable Unavailable CROWDER, ANANYA DO Unavailable Unavailable CROWDER, ANANYA DO Unavailable Unavailable Provider Pending, [facility] Shamar Combs MD Unavailable Un available Toñito Avina MD Unavailable Unavailable Toñtio Avina MD Unavailable Unavailable TAHIRA NEAL Unavailable Unavailable JIGNESH ELLIS MD Unavailable Unavailable JIGNESH ELLIS MD Unavailable Unavailable Sanfodr, Desiree SIGN ARTIST Unavailable Unavailable Sanford, Desiree SIGN ARTIST Unavailable Unavailable Sanford, Desiree SIGN ARTIST Unavailable Unavailable Sanford, Desiree SIGN ARTIST Unavailable Unavailable Sanford, Desiree SIGN ARTIST Unavailable Unavailable NON, PHYSICIAN STAFF Unavailable Unavailable [...] Unavailable Juarez, W Best Unavailable Unavailable [id number], [id number] Unavailable MEDENT_[id number], [id number] Unavailable MEDENT_[id number], [id number] Unavailable MEDENT_[id number], [id number] Unavailable MEDENT_[id number], [id number] Unavailable MEDENT_8436, [id number] Unavailable MEDENT_[id number], [id number] Unavailable MEDENT_8436, [id number] Unavailable MEDENT_8436, [id number] Unavailable Theron Fuller MD Unavailable Unavailable Theron [...] E Dinorah MD Unavailable Unavailable Miah, E Dionrah MD Unavailable Unavailable Miah, E Dinorah MD [...] is protected by Article 27-F of the [place] Public Health law. If you continue you may have access to information: Regarding HIV / AIDS; Provided by facilities licensed or operated by the [place] Office of Mental Health; or Provided by the [place] [facility] Office for People With Developmental Disabilities. If such information is present, then the following [place] [facility] mandated warning applies: This information has [...] law may result in a fine or long term sentence or both. A general authorization for the release of medical or other information is NOT sufficient authorization for further disc losure. Family History Family Member Name Family Member Gender Family Member Status Date o f Status Description Data Source(s) Unknown Male Diagnosis 11/07/2014 12:00:[address] [facility] Services Encounters Encounter Providers Location Date Indications Data Source(s ) Outpatient Attender: CAM PRINCE MD 02/21/2020 12:00: 00 AM [facility] Outpatient Attender: CAM PRINCE MD [id number] 12:00:00 AM EDT - 12/20/2019 03:38:04 PM EDT [facility] Emergency Attender: RONDA GARCIAConsultant: STAFF NON 11/07/2019 11:33:00 PM EDT - 11/08/2019 01:19:00 AM EDT [facility] ital Patient discharged. Outpatient 07/20/2019 06:39:00 PM EDT [facility] Outpatient Attender: REBEKAH CHAUHAN MD MDAdmitt er: REBEKAH CHAUHAN MD, MD [facility] 07/18/2019 10:30:00 AM EDT TELEPHONE discuss surgery [facility] TELEPHONE discuss surgery [facility] ENT/Facial Plastic Surgery 0 07/18/2019 10:30:00 AM EDT - 07/18/2019 10:30:00 AM EDT Proc/trtmt not carried out because of contraindication [facility] Proc/trtmt not carried out because of co ntraindication P Attender: SALMA CARRASCOdmitter: SALMA ALVARADO MATTHIAS-MATTHIAS 07/11/2019 10:42:00 AM EDT [facility] - [facility], [facility] P Attender: LISA DOBSONAdmitter: LISA DOBSON MATTHIAS-MATTHIAS 2019 03:14:00 PM EDT [facility] - [facility], [facility] Outpatient Attender: LISA DOBSONAdmitter: LISA DOBSON MATTHIAS-MATTHIAS 06/29/2019 01:18:00 PM EDT - 06/29/2019 01:18:00 PM EDT [facility] - [facility] Patient discharged. Outpatient Attender: Wali Temple MDAdmitter: Wali casanova MD [facility] 06/18/2019 06:16:00 PM EDT - 06/18/2019 08:15:00 PM EDT [facility] Patient discharged. Outpatient Attender: SALMA CARRASCOdmitter: SALMA ALVARADO OUT-OUT 05/31/2019 12:01:00 AM EDT - 06/29/2019 11:59:00 PM EDT [facility] - [facility] Patient discharged. P Attender: SALMA CARRASCOdmitter: SAMLA ALVARADO MATTHIAS-MATTHIAS 05/30/2019 08:44:00 AM EDT [facility] - [facility] Outpatient Attender: SALMA CARRASCOdmitter: SALMA ALVARADO MATTHIAS-MATTHIAS 05/30/2019 08:29:00 AM EDT - 05/30/2019 08:29:00 AM EDT [facility] Sraah - [facility] Patient discharged. P Attender: Desiree CHERRY PAttender: PROVIDER TESTAdmitter: Desiree HERNANDEZ LCB-LCB 05/26/2019 01:33:00 PM EDT [facility] darren Smith - [facility] Outpatient Attender: HALEY ZAYASAdmitter: HALEY SERRANO LCB-LCB 05/16/2019 05:58:00 PM EDT - 05/16/2019 05:58:00 PM EDT [facility] - [facility] Patient discharged. Outpatient Attender: HALEY FRIEDMAN ttender: PROVIDER TESTAdmitter: HALEY ZAYAS LCB-LCB 05/16/2019 05:23:00 PM EDT - 05/16/2019 05:58:00 PM EDT [facility] - [facility] Emergency Attender: Nilton moura DOAdmitter: Nilton ABRAMSeferrer: Dinorah Chavez/ShayM/S 05/12/2019 02:05:00 PM EDT - 05/12/2019 03:05:00 PM EDT [facility] - [facility] Patient discharged. Emergency Attender: Nilton moura DOAdmitter: Nilton Willson DOReferrer: Dinorah Dooley MD ANC-ER 05/12/2019 02:05:00 PM EDT [facility] - [facility] Outpatient Attender: TAHIRA BELLA PAAdmitter: TAHIRA BELLA PA MATTHIAS-MATTHIAS 05/12/2019 12:53:00 PM EDT - 05/12/2019 12:53:00 PM EDT [facility] - [facility] Patient discharged. Outpatient Attender: Best Verma r: [facility] Shamar Br Provider Pending MDAdmitter: Best CASTRO 05/08/2019 11:02:00 AM EDT [facility] OutpatientOffice/outpatient visit,est, mod [facility] 05/08/2019 11:02:00 AM EDT - 05/08/2019 11:02:00 AM EDT Intractable migraine without status migrainosus, unspecified migraine type [facility] Intractable migraine without status migr ainosus, unspecified migraine type Outpatient Attender: MADHAVI GUAJARDOdmitter: MADHAVI WIN ANC -BCC 05/01/2019 08:27:00 AM EST - 05/01/2019 08:27:00 AM EST [facility] - [facility] Patient discharged. Outpatient Attender: SALMA CARRASCOdmitter: SALMA ALVARADO OUT-OUT 2019 12:01:00 AM EST - 05/30/2019 11:59:00 PM EDT [facility] - [facility] Patient discharged. Emergency Attender: Teddy Kurtz nder: Nilton Willson DOAdmitter: Teddy Mckenna MDReferrer: Dinorah Chavez/Katina-M/S 04/27/2019 01:15:00 PM EST - 04/27/2019 05:18:00 PM EST [facility] Patient discharged. Emergency Attender: Nilton Willson DOAdmitter : Nilton Willson DO ANC-ER 04/27/2019 01:15:00 PM EST [facility] Tonja rdes - [facility] Outpatient Attender: SALMA Bethitter: SALMA ALVARADO OUT-OUT 04/26/2019 02:59:00 PM EST - 04/27/2019 09:13:00 AM EST [facility] - [facility] Patient discharged. Outpatient Attender: SALMA Bethitter: SALMA ALVARADO OUT-OUT 04/25/2019 09:15:00 AM EST - 04/29/2019 11:59:00 PM EST [facility] - [facility] Patient discharged. Outpatient Attender: TAHIRA BELLA PAAvivianitter: TAHIRA HOFFMANN MATTHIAS-MATTHIAS 04/24/2019 10:16:00 AM EST - 04/24/2019 10:16:00 AM EST [facility] - [facility] Patient discharged. P Attender: TAHIRA BELLA PAAvivianitter: TAHIRA HOFFMANN MATTHIAS-MATTHIAS 04/24/2019 09:00:00 AM EST [facility] P Attender: SALMA Bethitter: SALMA ALVARADO MATTHIAS-MATTHIAS 04/19/2019 09:00:00 AM EST [facility] - [facility] Outpatient Attender: SALMA Bethitter: SALMA ALVARADO MATTHIAS-MATTHIAS 04/10/2019 07:46:00 AM EST - 04/10/2019 09:28:00 AM EST [facility] - [facility] Patient discharged. Outpatient Attender: SALMA Bethitter: SALMA ALVARADO ANC-NICKOLAS 04/10/2019 05:00:00 AM EST - 04/10/2019 07:00:00 PM EST [facility] - [facility] Patient discharged. Outpatient Attender: SALMA CARRASCO dmitter: SALMA Alemanultant: Physician Marlen Chan MD ANC-NICKOLAS 04/10/2019 05:00:00 AM EST - 04/10/2019 07:00:00 PM EST [facility] - [facility] P Attender: SALMA Bethitter: SALMA ALVARADO ANC-NICKOLAS 04/10/2019 04:00:00 AM EST [facility] - [facility] P Attender: SALMA Bethitter: SALMA ALVARADO PAT-PAT 04/05/2019 04:00:00 AM EST [facility] - [facility] P Attender: SALMA Bethitter: SALMA ALVARADO MATTHIAS-MATTHIAS 04/04/2019 01:50:00 PM EST [facility] - [facility] Outpatient Attender: [id number] [facility] Main Office 04/04/2019 11:45:00 AM EST MED[facility] ([facility] ) Outpatient Attender: SALMA Bethitter: SALMA ALVARADO MATTHIAS-MATTHIAS 04/04/2019 09:52:00 AM EST - 04/04/2019 09:52:00 AM EST [facility] - [facility] Patient discharged. Emergency Attender: Toñito Hernandez ter: Toñito Avina MDReferrer: Dinorah Dooley MD M/S-M/S 04/03/2019 12:15:00 PM EST - 04/03/2019 05:20:00 PM EST [facility] - [facility] Patient discharged. Emergency Attender: Toñito Hernandez ter: Toñito Avina MDReferrer: Dinorah Dooley MD ANC-ER 04/03/2019 12:15:00 PM EST - 04/03/2019 05:20:00 PM EST [facility] - [facility] P Attender: MADHAVI Williamitter: MADHAVI WIN ANC -BCC 03/28/2019 04:00:00 AM EST [facility] - [facility] Outpatient Attender: PROVIDER TESTAdmitter: PROVIDER TEST Jessica ARMENDARIZ-LCB 03/26/2019 11:11:00 AM EST - 03/26/2019 12:11:00 PM EST [facility] - [facility] Patient discharged. Outpatient Attender: Sandra BowersAttender: PROVIDER TESTAdmitter: Sandra ABDALLA-LCB 03/26/2019 10:11:00 AM EST - 03/26/2019 12:11:00 PM EST [facility] - [facility] Outpatient Attender: Sandra BowersAttender: PROVIDER TESTAdmitter: Sandra ABDALLA-LCB 03/26/2019 10:11:00 AM EST - 03/27/2019 11:59:59 PM EST [facility] - [facility] Emergency Attender: Atilio Fuller MDAdmitter: Atilio Chavez/S-M/S 02/18/2019 09:11:00 AM EST - 02/18/2019 02:08:00 PM EST [facility] - [facility] Patient discharged. Emergency Attender: Atilio Fuller MDAdmitter: Atilio stahl MD ANC-ER 02/18/2019 09:11:00 AM EST [facility] - [facility] Outpatient [facility] 01/27/2019 02:52:00 PM EST - 019 12:00:[address] [facility] Patient discharged. [facility] [place] 1 03/29/2018 02:48:00 PM EST - 01/27/2019 02:48:00 PM EST [employer] ([facility] sylwia) Emergency Attender: ANANYA OMALLEY ttender: Nilton Willson DOAdmitter: ANANYA CROWDER DOReferrer: Dinorah Dooley MD M/S-M/S 12/03/19 02:43:00 PM EDT - 12/02/2018 07:06:00 PM EDT [facility] Patient discharged. Emergency Attender: JIGNESH ELLIS MDAt tender: Atilio Fuller MDAdmitter: JIGNESH ELLIS MDReferrer: Dinorah Dooley MD M/S-M/S 11/28/2018 01:55 :00 PM EDT - 11/28/2018 06:46:00 PM EDT [facility] Patient discharged. Medications Medication Brand Name Start Date Product Form Dose Route Admi nistrative Instructions Pharmacy Instructions Status Indications Reaction Description Data Source(s) Diclofenac Sodium 50 MG Delayed Release Oral Tablet Diclofen ac Sodium 06/29/2019 12:00:00 AM EDT ORAL active M [facility] ([facility]) naproxen 500 mg oral tablet 05/26/2019 02:15:00 PM EDT 5 00.0 By Mouth completed 500 mg = 1 tab(s), P O (oral), bid, PRN Pain, # 30 tab(s), Maintenance, Pharmacy: [facility]/pharmacy #[id number], 1 tab(s) PO (oral) bid,PRN:Pain [facility] naproxen 500 mg oral tablet 05/26/2019 02:15:00 PM EDT 5 00.0 By Mouth completed 500 mg = 1 tab(s), P O (oral), bid, PRN Pain, # 30 tab(s), Maintenance, Pharmacy: [id number], 1 tab(s) PO (oral) bid,PRN:Pain [facility] Sarah - [facility] naproxen 500 mg oral tablet 05/26/2019 02:15:00 PM EDT 5 00.0 By Mouth completed 500 mg = 1 tab(s), P O (oral), bid, PRN Pain, # 30 tab(s), Maintenance, [facility]acy: [id number], 1 tab(s) PO (oral) bid,PRN[facility] naproxen 500 mg oral tablet 05/26/2019 02:15:00 PM EDT 5 00.0 By Mouth completed 500 mg = 1 tab(s), P O (oral), bid, PRN Pain, # 30 tab(s), Maintenance, Pharmacy: [id number], 1 tab(s) PO (oral) bid,PRN:Pain [facility] - [facility], [facility] Zofran 4 mg oral tablet 05/12/2019 02:44:00 PM EDT 4.0 Under your Tongue completed 4 mg = 1 tab(s), SubLINGUAL, q6hr, PRN for Nausea or Vomiting, # 9 tab(s), 0 Refill(s), Maintenance, Pharmacy: [id number], 1 tab(s) SubLINGUAL q6hr,x3 day(s),PRN:for Nausea or Vomiting [facility] - [facility], [facility] Zofran 4 mg oral tablet 05/12/2019 02:44:00 PM EDT 4.0 Under your Tongue completed 4 mg = 1 tab(s), SubLINGUAL, q6hr, PRN for Nausea or Vomiting, # 9 tab(s), 0 Refill(s), Maintenance, Pharmacy: [facility]/pharmacy #[id number], 1 tab(s) SubLINGUAL q6hr,x3 day(s),PRN:for Nausea or Vomiting [facility] - [facility] Zofran 4 mg oral tablet 05/12/2019 02:44:00 PM EDT 4.0 Under your Tongue completed 4 mg = 1 tab(s), SubLINGUAL, q6hr, PRN for Nausea or Vomiting, # 9 tab(s), 0 Refill(s), Maintenance, Pharmacy: [facility]/pharmacy #[id number], 1 tab(s) SubLINGUAL q6hr,x3 day(s),PRN:for Nausea or Vomiting [facility] - [facility] Zofran 4 mg oral tablet 05/12/2019 02:44:00 PM EDT 4.0 Under your Tongue completed 4 mg = 1 tab(s), SubLINGUAL, q6hr, PRN for Nausea or Vomiting, # 9 tab(s), 0 Refill(s), Maintenance, Pharmacy: [id number], 1 tab(s) SubLINGUAL q6hr,x3 day(s),PRN:for Nausea or Vomiting [facility] - [facility], [facility] Zofran 4 mg oral tablet 05/12/2019 02:44:00 PM EDT 4.0 Under your Tongue completed 4 mg = 1 tab(s), SubLINGUAL, q6hr, PRN for Nausea or Vomiting, # 9 tab(s), 0 Refill(s), Maintenance, Pharmacy: [facility]/pharmacy #[id number], 1 tab(s) SubLINGUAL q6hr,x3 day(s),PRN:for Nausea or Vomiting [facility] - [facility], [facility] Zofran ODT 4 mg oral tablet, disintegrating 04/27/2019 05: 08:00 PM EST 4.0 By Mouth completed 4 mg = 1 tab(s ), PO (oral), tid, PRN Nausea, # 9 tab(s), Maintenance, Pharmacy: [facility]/pharmacy #[id number], 1 tab(s) PO (oral) tid,PRN:Nausea [facility] Zofran ODT 4 mg oral tablet, disintegrating 04/27/2019 05: 08:00 PM EST 4.0 By Mouth completed 4 mg = 1 tab(s ), PO (oral), tid, PRN Nausea, # 9 tab(s), Maintenance, [facility]acy: [id number], 1 tab(s) PO (oral) tid,PRN:Nausea [facility] Zofran ODT 4 mg oral tablet, disintegrating 04/27/2019 05: 08:00 PM EST 4.0 By Mouth completed 4 mg = 1 tab(s ), PO (oral), tid, PRN Nausea, # 9 tab(s), Maintenance, [facility]acy: [id number], 1 tab(s) PO (oral) tid,PRN:Nausea [facility] Zofran ODT 4 mg oral tablet, disintegrating 04/27/2019 05: 08:00 PM EST 4.0 By Mouth completed 4 mg = 1 tab(s ), PO (oral), tid, PRN Nausea, # 9 tab(s), Maintenance, Pharmacy: [facility]/pharmacy #[id number], 1 tab(s) PO (oral) tid,PRN:Nausea [facility], [facility] Zofran ODT 4 mg oral tablet, disintegrating 04/27/2019 05: 08:00 PM EST 4.0 By Mouth completed 4 mg = 1 tab(s ), PO (oral), tid, PRN Nausea, # 9 tab(s), Maintenance, Pharmacy: [facility]/pharmacy #[id number], 1 tab(s) PO (oral) tid,PRN:Nausea [facility], [facility] Zofran ODT 4 mg oral tablet, disintegrating 04/27/2019 05: 08:00 PM EST 4.0 By Mouth completed 4 mg = 1 tab(s ), PO (oral), tid, PRN Nausea, # 9 tab(s), Maintenance, Pharmacy: [facility]/pharmacy #[id number], 1 tab(s) PO (oral) tid,PRN:Nausea [facility], [facility] Omeprazole omeprazole 40 mg oral delayed release capsu le omeprazole 40 mg oral delayed release capsule 04/27/2019 05:00:00 PM EST 40.0 By Mouth completed 40 mg = 1 cap(s), PO (oral), qDay, # 90 cap(s), Maintenance, Pharmacy: [facility]/pharmacy #[id number], 1 cap(s) PO (oral) qDay [facility] Omeprazole omeprazole 40 mg oral delayed release capsu le omeprazole 40 mg oral delayed release capsule 04/27/2019 05:00:00 PM EST 40.0 By Mouth completed 40 mg = 1 cap(s), PO (oral), qDay, # 90 cap(s), Maintenance, Pharmacy: [facility]/pharmacy #[id number], 1 cap(s) PO (oral) qDay [facility] Omeprazole omeprazole 40 mg oral delayed release capsu le omeprazole 40 mg oral delayed release capsule 04/27/2019 05:00:00 PM EST 40.0 By Mouth completed 40 mg = 1 cap(s), PO (oral), qDay, # 90 cap(s), Maintenance, Pharmacy: [facility]/pharmacy #[id number], 1 cap(s) PO (oral) qDay [facility] Sarah - [facility], [facility] Omeprazole omeprazole 40 mg oral delayed release capsu le omeprazole 40 mg oral delayed release capsule 04/27/2019 05:00:00 PM EST 40.0 By Mouth completed 40 mg = 1 cap(s), PO (oral), qDay, # 90 cap(s), Maintenance, [id number], 1 cap(s) PO (oral) qDay [facility] Sarah - [facility], [facility] Omeprazole omeprazole 40 mg oral delayed release capsu le omeprazole 40 mg oral delayed release capsule 04/27/2019 05:00:00 PM EST 40.0 By Mouth completed 40 mg = 1 cap(s), PO (oral), qDay, # 90 cap(s), Maintenance, Pharmacy: [facility]/pharmacy #[id number], 1 cap(s) PO (oral) qDay [facility] Sarah - [facility], [facility] Omeprazole omeprazole 40 mg oral delayed release capsu le omeprazole 40 mg oral delayed release capsule 04/27/2019 05:00:00 PM EST 40.0 By Mouth completed 40 mg = 1 cap(s), PO (oral), qDay, # 90 cap(s), Maintenance, Pharmacy: [facility]/pharmacy #[id number], 1 cap(s) PO (oral) qDay [facility] Sarah - [facility] medroxyPROGESTERone 150 mg/mL intramuscular suspension 04/27/2019 04:13:00 PM EST 150.0 IntraMUSCULAR completed 150 mg =, IM, Maintenance Posey [facility], [facility] Morphine Sulfate 15 MG Oral Tablet Morphine Sulfate 04/11/2019 1 2:00:00 AM EST ORAL completed MEDENT ([facility]) acetaminophen-oxyCODONE 325 mg-5 mg oral tablet 2019 12:18:00 PM EST 1.0 By Mouth completed 1 tab(s), PO (oral), q4h, PRN Moderate Pain (4- 6), # 20 tab(s), 0 Refill(s), Maintenance, [id number], 1 tab(s) PO (oral) q4h,PRN:Moderate Pain (4-6) [facility] CeleBREX 100 mg oral capsule 04/10/2019 12:17:00 PM EST 100.0 By Mouth completed 100 mg = 1 cap(s), P O (oral), bid, # 60 cap(s), Maintenance, Pharmacy: [facility]/pharmacy #[id number], 1 cap(s) PO (oral) bid [facility] docusate sodium 100 mg oral tablet 04/10/2019 12:16:00 PM EST 100.0 By Mouth completed 100 mg =, PO ( oral), qDay, # 5 tab(s), Maintenance, [id number], 100 mg PO (oral) qDay [facility] Sarah - [facility] cephalexin 500 mg oral capsule 04/10/2019 12:16:00 PM EST 500.0 By Mouth completed 500 mg = 1 cap(s ), PO (oral), q6hr, # 12 cap(s), Maintenance, Pharmacy: [facility]/pharmacy #[id number], 1 cap(s) PO (oral) q6hr [facility] Sarah - [facility] Zofran ODT 4 mg oral tablet, disintegrating 04/10/2019 12: 16:00 PM EST Under your Tongue completed 1 to 2 tab(s), SubLINGUAL, q8h, PRN for nausea or vomiting, # 4 tab(s), Maintenance, [id number], 1 to 2 tab(s) SubLINGUAL q8h,PRN:for nausea or vomiting [facility] aspirin 325 mg oral delayed release tablet 04/10/2019 12:1 6:00 PM EST 325.0 By Mouth completed 325 mg = 1 tab (s), PO (oral), qDay, # 14 tab(s), Maintenance, [id number], 1 tab(s) PO (oral) qDay [facility], [facility] Zofran ODT 4 mg oral tablet, disintegrating 04/03/2019 04: 37:30 PM EST Under your Tongue completed 1 to 2 tab(s), SubLINGUAL, q8h, PRN for nausea or vomiting, # 4 tab(s), Maintenance, Pharmacy: [facility]/pharmacy #[id number], 1 to 2 tab(s) SubLINGUAL q8h,PRN:for nausea or vomiting [facility] Macrobid 100 mg oral capsule 03/26/2019 11:05:15 AM EST 100.0 By Mouth completed 100 mg = 1 cap(s), P O (oral), bid, # 10 cap(s), Maintenance, Pharmacy: [facility]/pharmacy #[id number], 1 cap(s) PO (oral) bid,x5 day(s) [facility] Macrobid 100 mg oral capsule 03/26/2019 11:05:15 AM EST 100.0 By Mouth completed 100 mg = 1 cap(s), P O (oral), bid, # 10 cap(s), Maintenance, Pharmacy: [facility]/pharmacy #[id number], 1 cap(s) PO (oral) bid,x5 day(s) [facility] - [facility], [facility] Voltaren 75 mg oral enteric coated tablet 02/18/2019 01:51 :38 PM EST 75.0 By Mouth completed 75 mg = 1 tab( s), PO (oral), bid, # 20 tab(s), Maintenance, Pharmacy: [facility]/pharmacy #[id number], 1 tab(s) PO (oral) bid [facility] Sarah - [facility], [facility] Voltaren 75 mg oral enteric coated tablet 02/18/2019 01:51 :38 PM EST 75.0 By Mouth completed 75 mg = 1 tab( s), PO (oral), bid, # 20 tab(s), Maintenance, Pharmacy: [facility]/pharmacy #[id number], 1 tab(s) PO (oral) bid P[facility] Sarah - [facility], [facility] Flonase Allergy Relief 50 mcg/actuation nasal spray,dickinson spension Fluticasone propionate 0.05 MG/ACTUAT Metered Dose Nasal [place] 06/08/2016 12:00:00 AM EDT NASAL completed Fluticason e propionate 0.05 MG/ACTUAT Metered Dose Nasal [place] [Flonase] [facility] trazodone 50 mg tablet trazodone HCl TABLET 1.00 tablet ORAL completed take 1 tablet by oral route every day at bedtime [facility] Hyoscyamine Sulfate 0.125 MG/ML Oral Nat ution HYOSCYAMINE SULFATE (unknown strength) HYOSCYAMINE SULFATE (unknown strength) ORAL completed take 1 milliliter by oral route every [address] [facility] Previfem 0.25 mg-35 mcg tablet {21 (Ethinyl Estradiol 0.035 MG / norgestimate 0.25 MG Oral Tablet) / 7 (Inert Ingredients 1 MG Oral Tablet) } Pack TABLET 1.00 tablet ORAL completed Previfem 28 Day Pa ck [facility] Briellyn 0.4 mg-35 mcg tablet {21 (Ethinyl Estradiol 0 .035 MG / Norethindrone 0.4 MG Oral Tablet) / 7 (Inert Ingredients 1 MG Oral Tablet) } Pack TABLET 1.00 tablet ORAL completed Briellyn [address] [facility] Metformin hydrochloride 500 MG Oral Tablet metformin 5 00 mg tablet metformin 500 mg tablet TABLET 1.00 tablet ORAL completed take 1 tablet by oral route 2 times every day with morning and evening meals [facility] Lactobacillus rhamnosus GG [id number] U NT Oral Capsule Culturelle 10 billion cell capsule Culturelle 10 billion cell capsule CAPSULE ORAL completed [facility] Clonazepam 1 MG Oral Tablet clonazepam 1 mg tablet clonazepam 1 mg tablet TABLET 1 tablet ORAL completed take 1 tablet by oral route [address] [facility] methylphenidate ER 50 mg multiphase capsule 30-70,exte nded release methylphenidate HCl CAPSULE ORAL completed take 1 capsule by oral route every day before breakfast 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 S JA [id number] CDPHP COM [id number] F [id number] [facility] Organizational Contracts [id number] Self [id number] CDPHP [id number] self [id number] CDPHP COM [id number] F [id number] CDPHP COM [id number] F [id number] CDPHP Health Maintenance Organization (HMO) [id number] Family Dependent [id number] Medicaid [id number] Self [id number] CDPHP MCO 14 [id number] DE [id number] CDPHP COMMERCIAL U [id number] Self [id number] GOVERNMENTAL GENERIC B [id number] ORel [id number] MEDICAID M [id number] Self [id number] MEDICAID M [id number] Self [id number] Problems, Conditions, and Diagnoses Code Display Name Description Problem Type Effective Dates Data Source(s) 76896373 Knee pain Knee pain Problem 06/29/2019 12:00:00 AM ED T [facility] ([facility]) [id number] Nicotine dependence, cigarettes, uncompl icated Nicotine dependence, cigarettes, uncomplicated Diagnosis 11/07/2019 11:33:00 PM EDT [facility] N949 Unspecified condition associ ated with female genital organs and menstrual cycle Unspecified condition associated with fe male genital organs and menstrual cycle Diagnosis 11/07/2019 11:33:00 PM EDT [facility] N939 Abnormal uterine and vaginal bleeding, u nspecified Abnormal uterine and vaginal bleeding, unspecified Diagnosis 11/07/2019 11:33:00 PM EDT [facility] G16394 Pain in left knee Pain in left knee Diagnosis 06/29/2019 01:18:00 PM EDT Lexi Smith - [facility] K59.00 Constipation, unspecified Constipation, unspecified Di agnosis 06/22/2019 12:00:00 AM EDT [facility] Z4889 Encounter for other specified surgical a ftercare Encounter for other specified surgical aftercare Diagnosis 05/30/2019 08:29:00 AM EDT Asce darrell Smith - [facility], [facility] fever x 2 days fever x 2 days Diagnosis 05/26/2019 01:33: 00 PM EDT Posey Sarah - [facility] left knee injury left knee injury Diagnosis 05/16/2019 05 :23:00 PM EDT Posey Sarah - [facility] R509 Fever, unspecified Fever, unspecified Diagnosis 0 02:05:00 PM EDT Posey Sarah - [facility] FEVER CONGESTION N/V FEVER CONGESTION N/V Diagnosis 05/12/2019 02:05:00 PM EDT Posey Sarah - [facility] J029 Acute pharyngitis, unspecified Acute pharyngitis, unsp ecified Diagnosis 05/12/2019 02:05:00 PM EDT Posey Sarah - [facility] VAS RC VAS RC Diagnosis 05/12/2019 12:53:00 PM ED T Posey Sarah - [facility] M7989 Other specified soft tissue disorders Ot her specified soft tissue disorders Diagnosis 05/12/2019 12:53:00 PM EDT Posey Tonja rdes - [facility] N6452 Nipple discharge Nipple discharge Diagnosis 05/01/2019 08 :27:00 AM EST Posey Sarah - [facility] N644 Mastodynia Mastodynia Diagnosis 05/01/2019 08:27:00 AM ES T Posey Sarah - 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 Z803 Family history of malignant neoplasm of breast Family history of malignant neoplasm of breast Diagnosis 04/27/2019 01:15:00 PM EST Posey Tonja rdes - [facility], [facility] Z3202 Encounter for test, result neg ative Encounter for test, result negative Diagnosis 04/27/2019 01:15:00 PM EST Posey L ourdes - [facility], [facility] [id number] Personal history of nicotine dependence Personal history of nicotine dependence Diagnosis 04/27/2019 01:15:00 PM EST Posey Tonja rdes - [facility], [facility] [id number] Other specified postprocedural states Ot her specified postprocedural states Diagnosis 04/27/2019 01:15:00 PM EST Posey Tonja rdes - [facility] R110 Nausea Nausea Diagnosis 04/27/2019 01:15:00 PM ES T Posey Sarah - [facility] F329 Major depressive disorder, single episod e, unspecified Major depressive disorder, single episode, unspecified Diagnosis 04/27/2019 01:15:00 PM EST Posey Sarah - [facility] F419 Anxiety disorder, unspecified Anxiety disorder, unspec ified Diagnosis 04/27/2019 01:15:00 PM EST Posey Sarah - [facility], [facility] K2970 Gastritis, unspecified, without bleeding Gastritis, unspecified, without bleeding Diagnosis 04/27/2019 01:15:00 PM EST Posey Tonja rdes - [facility], [facility] K219 Gastro-esophageal reflux disease without esophagitis Gastro-esophageal reflux disease without esophagitis Diagnosis 04/27/2019 01:15:00 PM ES T Posey Sarah - [facility], [facility] CHILLS/VOMITING/CHEST CONGESTION/PAIN CHILLS/VOM ITING/CHEST CONGESTION/PAIN Diagnosis 04/27/2019 01:15:00 PM EST Posey Sarah - [facility] R079 Chest pain, unspecified Chest pain, unspecified Diagno sis 04/27/2019 01:15:00 PM EST Posey Sarah - [facility] [id number] Other instability, left knee Other instability, left k nee Diagnosis 04/24/2019 10:16:00 AM EST Posey Sarah - [facility], 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 F410 Panic disorder episodic paroxysmal an xiety Panic disorder episodic paroxysmal anxiety Diagnosis 04/10/2019 05:00:00 AM EST Posey Sarah - [facility] E282 Polycystic ovarian syndrome Polycystic ovarian syndrom e Diagnosis 04/10/2019 05:00:00 AM EST Posey Sarah - [facility] F909 Attention-deficit hyperactivity disorder , unspecified type Attention- deficit hyperactivity disorder, unspecified type Diagnosis 04/10 05:00:00 AM EST Posey Sarah - [facility] Z8041 Family history of malignant neoplasm of ovary Family history of malignant neoplasm of ovary Diagnosis 04/10/2019 05:00:00 AM EST Posey Tonja rdes - [facility] Z880 Allergy status to penicillin Allergy status to penicil livier Diagnosis 04/10/2019 05:00:00 AM EST Posey Sarah - 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 MP MP Diagnosis 04/10/2019 05:00:00 AM ES T Posey Sarah - [facility] NICKOLAS NICKOLAS Diagnosis 04/10/2019 05:00:00 AM ES T Posey Sarah - [facility] M2352 Chronic instability of knee, left knee C hronic instability of knee, left knee Diagnosis 04/10/2019 05:00:00 AM EST Posey Tonja rdes - [facility] PAT PHONE PAT PHONE Diagnosis 04/05/2019 04:00:00 AM ES T Posey Sarah - [facility] [id number] Sprain of medial collateral ligament of left knee, init Sprain of medial collateral ligament of left knee, init Diagnosis 04/04/2019 09:52:00 AM EST Posey Sarah - [facility] K589 Irritable bowel syndrome without diarrhe a Irritable bowel syndrome without diarrhea Diagnosis 04/03/2019 12:15:00 PM EST Posey Tonaj rdes - [facility] F418 Other specified anxiety disorders Other specifie d anxiety disorders Diagnosis 04/03/2019 12:15:00 PM EST Posey Sarah - [facility] K2900 Acute gastritis without bleeding Acute gastritis without bleeding Diagnosis 04/03/2019 12:15:00 PM EST Posey Sarah - [facility] VOMITING/ABD PAIN/UNABLE TO URINATE VOMITING/ABD PAIN/UNABLE TO URINATE Diagnosis 04/03/2019 12:15:00 PM EST Posey Sarah - [facility] R1032 Left lower quadrant pain Left lower quadrant pain Diag nosis 04/03/2019 12:15:00 PM EST Posey Sarah - [facility], [facility] BCC PRESLEY BCC PRESLEY Diagnosis 03/28/2019 04:00:00 AM ES T Posey Sarah - [facility] vomitting for a week vomitting for a week Diagnosis 03/26/2019 10:11:00 AM EST Posey Sarah - [facility] N390 Urinary tract infection, site not specif ied Urinary tract infection, site not specified Diagnosis 03/26/2019 10:11:00 AM EST Posey Tonja rdes - [facility] N946 Dysmenorrhea, unspecified Dysmenorrhea, unspecified Di agnosis 02/18/2019 09:11:00 AM EST Posey Sarah - [facility], [facility] VOMITTING/RECTAL BLEEDING VOMITTING/RECTAL BLEEDING Di agnosis 02/18/2019 09:11:00 AM EST Posey Sarah - [facility] R1030 Lower abdominal pain, unspecified Lower abdomina l pain, unspecified Diagnosis 02/18/2019 09:11:00 AM EST Posey Sarah - [facility] Surgeries/Procedures Procedure Description Date Indications Data Source(s) POSTOP FOLLOW-UP VISIT POSTOP FOLLOW-UP VISIT 06/29/2019 12:00:00 A M EDT Posey Sarah - [facility], [facility] X-RAY EXAM OF KNEE 3 X-RAY EXAM OF KNEE 3 06/29/2019 12:00:00 AM ED T Posey Sarah - [facility], [facility] X-RAY EXAM OF KNEE 3 X-RAY EXAM OF KNEE 3 06/29/2019 12:00:00 AM ED T Posey Sarah - [facility], [facility] POSTOP FOLLOW-UP VISIT POSTOP FOLLOW-UP VISIT 06/29/2019 12:00:00 A M EDT Posey Sarah - [facility] X-Ray Knee Ap & Lateral W/Obliques Three Views 020 12:00:00 AM EDT [facility] ([facility]) OFFICE/OUTPATIENT VISIT EST OFFICE/OUTPATIENT VISIT EST 04/30 12:00:00 AM EDT Posey Sarah - [facility], [facility] OFFICE/OUTPATIENT VISIT EST OFFICE/OUTPATIENT VISIT EST 04/30 12:00:00 AM EDT Posey Sarah - [facility] X-RAY EXAM OF KNEE 3 X-RAY EXAM OF KNEE 3 05/16/2019 12:00:00 AM ED T Posey Sarah - [facility], [facility] OFFICE/OUTPATIENT VISIT EST OFFICE/OUTPATIENT VISIT EST 04/29 12:00:00 AM EDT Posey Sarah - [facility], [facility] X-RAY EXAM OF KNEE 3 X-RAY EXAM OF KNEE 3 05/16/2019 12:00:00 AM ED T Posey Sarah - [facility], [facility] OFFICE/OUTPATIENT VISIT EST OFFICE/OUTPATIENT VISIT EST 04/29 12:00:00 AM EDT Posey Sarah - [facility] X-RAY EXAM OF KNEE 3 X-RAY EXAM OF KNEE 3 05/16/2019 12:00:00 AM ED T Posey Sarah - [facility] X-RAY EXAM OF KNEE 3 X-RAY EXAM OF KNEE 3 05/16/2019 12:00:00 AM ED T Posey Sarah - [facility] X-RAY EXAM OF KNEE 3 X-RAY EXAM OF KNEE 3 05/16/2019 12:00:00 AM ED T Posey Sarah - [facility] RSV DNA/RNA AMP PROBE RSV DNA/RNA AMP PROBE 05/12/2019 12:00:00 AM EDT Posey Sarah - [facility] STREP A AG IA STREP A AG IA 05/12/2019 12:00:00 AM EDT Posey Sarah - [facility] EXTREMITY STUDY EXTREMITY STUDY 05/12/2019 12:00:00 AM EDT Posey Sarah - [facility] EMERGENCY DEPT VISIT EMERGENCY DEPT VISIT 05/12/2019 12:00:00 AM ED T Posey Sarah - [facility] INFLUENZA DNA AMP PROBE INFLUENZA DNA AMP PROBE 05/12/2019 12:00:00 AM EDT Posey Sarah - [facility] EMERGENCY DEPT VISIT EMERGENCY DEPT VISIT 05/12/2019 12:00:00 AM ED T Posey Sarah - [facility] RSV DNA/RNA AMP PROBE RSV DNA/RNA AMP PROBE 05/12/2019 12:00:00 AM EDT Posey Sarah - [facility] STREP A AG IA STREP A AG IA 05/12/2019 12:00:00 AM EDT Posey Sarah - [facility] INFLUENZA DNA AMP PROBE INFLUENZA DNA AMP PROBE 05/12/2019 12:00:00 AM EDT Posey Sarah - [facility] EXTREMITY STUDY EXTREMITY STUDY 05/12/2019 12:00:00 AM EDT Posey Sarah - [facility] STREP A AG IA STREP A AG IA 05/12/2019 12:00:00 AM EDT Posey Sarah - [facility] INFLUENZA DNA AMP PROBE INFLUENZA DNA AMP PROBE 05/12/2019 12:00:00 AM EDT Posey Sarah - [facility] EMERGENCY DEPT VISIT EMERGENCY DEPT VISIT 05/12/2019 12:00:00 AM ED T Posey Sarah - [facility] RSV DNA/RNA AMP PROBE RSV DNA/RNA AMP PROBE 05/12/2019 12:00:00 AM EDT Posey Sarah - [facility] EXTREMITY STUDY EXTREMITY STUDY 05/12/2019 12:00:00 AM EDT Posey Sarah - [facility] INFLUENZA DNA AMP PROBE INFLUENZA DNA AMP PROBE 05/12/2019 12:00:00 AM EDT Posey Sarah - [facility] EMERGENCY DEPT VISIT EMERGENCY DEPT VISIT 05/12/2019 12:00:00 AM ED T Posey Sarah - [facility] RSV DNA/RNA AMP PROBE RSV DNA/RNA AMP PROBE 05/12/2019 12:00:00 AM EDT Posey Sarah - [facility] STREP A AG IA STREP A AG IA 05/12/2019 12:00:00 AM EDT Posey Sarah - [facility] INFLUENZA DNA AMP PROBE INFLUENZA DNA AMP PROBE 05/12/2019 12:00:00 AM EDT Posey Sarah - [facility] EMERGENCY DEPT VISIT EMERGENCY DEPT VISIT 05/12/2019 12:00:00 AM ED T Posey Sarah - [facility] RSV DNA/RNA AMP PROBE RSV DNA/RNA AMP PROBE 05/12/2019 12:00:00 AM EDT Posey Sarah - [facility] STREP A AG IA STREP A AG IA 05/12/2019 12:00:00 AM EDT Posey Sarah - [facility], [facility] THERAPEUTIC EXERCISES THERAPEUTIC EXERCISES 05/09/2019 12:00:00 AM EDT Posey Sarah - [facility] THERAPEUTIC EXERCISES THERAPEUTIC EXERCISES 05/09/2019 12:00:00 AM EDT Posey Sarah - [facility] THERAPEUTIC EXERCISES THERAPEUTIC EXERCISES 05/09/2019 12:00:00 AM EDT Posey Sarah [facility] Therapeutic, prophylactic, or diagnostic injection; Sub Cut/ IM 05/08/2019 12:00:00 AM EDT - 05/08/2019 12:00:00 AM EDT [facility] Toradol Inj Per 15 mg 05/08/2019 12:00:00 AM EDT - 05/08/2019 12:00:00 AM EDT [facility] Office/outpatient visit,est, mod 020 12:00:00 AM EDT - 05/08/2019 12:00:00 AM EDT [facility] THERAPEUTIC EXERCISES THERAPEUTIC EXERCISES 05/03/2019 12:00:00 AM EST Posey Sarah - [facility], [facility] THERAPEUTIC EXERCISES THERAPEUTIC EXERCISES 05/03/2019 12:00:00 AM EST Posey Sarah - [facility], [facility] THERAPEUTIC EXERCISES THERAPEUTIC EXERCISES 05/03/2019 12:00:00 AM EST Posey Sarah - [facility], [facility] OFFICE/OUTPATIENT VISIT EST OFFICE/OUTPATIENT VISIT EST 04/2019 12:00:00 AM EST Posey Sarah - [facility], [facility] OFFICE/OUTPATIENT VISIT EST OFFICE/OUTPATIENT VISIT EST 04/2019 12:00:00 AM EST Posey Sarah - [facility], [facility] ASSAY OF TROPONIN QUANT ASSAY OF TROPONIN QUANT 04/27/2019 12:00:00 AM [facility] CHORIONIC GONADOTROPIN ASSAY CHORIONIC GONADOTROPIN ASSAY 12:00:00 AM EST [facility] FIBRIN DEGRADATION QUANT FIBRIN DEGRADATION QUANT 04/27/2019 12:00: 00 AM EST Posey Sarah - [facility], [facility] COMPREHEN METABOLIC PANEL COMPREHEN METABOLIC PANEL 04/27/2019 1 2:00:00 AM EST Posey Sarah - [facility], [facility] EMERGENCY DEPT VISIT EMERGENCY DEPT VISIT 04/27/2019 12:00:00 AM ES T Posey Sarah - [facility], [facility] BLOOD COUNT COMPLETE AUTO&AUTO DIFRNTL WBC COUNT COMPLETE CB C W/AUTO DIFF WBC 04/27/2019 12:00:00 AM EST Posey Sarah - [facility] ELECTROCARDIOGRAM TRACING ELECTROCARDIOGRAM TRACING 04/27/2019 1 2:00:00 AM EST Posey Sarah - [facility], [facility] X-RAY EXAM CHEST 2 VIEWS X-RAY EXAM CHEST 2 VIEWS 04/27/2019 12:00: 00 AM EST Posey Sarah - [facility], [facility] ROUTINE VENIPUNCTURE ROUTINE VENIPUNCTURE 04/27/2019 12:00:00 AM ES T Posey Sarah - [facility], [facility] COMPREHEN METABOLIC PANEL COMPREHEN METABOLIC PANEL 04/27/2019 1 2:00:00 AM EST Posey Sarah - [facility], [facility] X-RAY EXAM CHEST 2 VIEWS X-RAY EXAM CHEST 2 VIEWS 04/27/2019 12:00: 00 AM EST Posey Sarah - [facility], [facility] FIBRIN DEGRADATION QUANT FIBRIN DEGRADATION QUANT 04/27/2019 12:00: 00 AM EST Posey Sarah - [facility], [facility] BLOOD COUNT COMPLETE AUTO&AUTO DIFRNTL WBC COUNT COMPLETE CB C W/AUTO DIFF WBC 04/27/2019 12:00:00 AM EST Posey Sarah - [facility] CHORIONIC GONADOTROPIN ASSAY CHORIONIC GONADOTROPIN ASSAY 12:00:00 AM EST Posey Sarah - [facility], [facility] EMERGENCY DEPT VISIT EMERGENCY DEPT VISIT 04/27/2019 12:00:00 AM ES T Posey Sarah - [facility], [facility] ROUTINE VENIPUNCTURE ROUTINE VENIPUNCTURE 04/27/2019 12:00:00 AM ES T Posey Sarah - [facility], [facility] ELECTROCARDIOGRAM TRACING ELECTROCARDIOGRAM TRACING 04/27/2019 1 2:00:00 AM EST Posey Sarah - [facility], [facility] ASSAY OF TROPONIN QUANT ASSAY OF TROPONIN QUANT 04/27/2019 12:00:00 AM EST Posey Sarah - [facility], [facility] ELECTROCARDIOGRAM TRACING ELECTROCARDIOGRAM TRACING 04/27/2019 1 2:00:00 AM EST Posey Sarah - [facility], [facility] BLOOD COUNT COMPLETE AUTO&AUTO DIFRNTL WBC COUNT COMPLETE CB C W/AUTO DIFF WBC 04/27/2019 12:00:00 AM EST Posey Sarah - [facility] EMERGENCY DEPT VISIT EMERGENCY DEPT VISIT 04/27/2019 12:00:00 AM ES T Posey Sarah - [facility], [facility] COMPREHEN METABOLIC PANEL COMPREHEN METABOLIC PANEL 04/27/2019 1 2:00:00 AM EST Posey Sarah - [facility], [facility] ROUTINE VENIPUNCTURE ROUTINE VENIPUNCTURE 04/27/2019 12:00:00 AM ES T Posey Sarah - [facility], [facility] CHORIONIC GONADOTROPIN ASSAY CHORIONIC GONADOTROPIN ASSAY 12:00:00 AM EST Posey Sarah - [facility], [facility] FIBRIN DEGRADATION QUANT FIBRIN DEGRADATION QUANT 04/27/2019 12:00: 00 AM EST Posey Sarah - [facility], [facility] X-RAY EXAM CHEST 2 VIEWS X-RAY EXAM CHEST 2 VIEWS 04/27/2019 12:00: 00 AM EST Posey Sarah - [facility], [facility] ASSAY OF TROPONIN QUANT ASSAY OF TROPONIN QUANT 04/27/2019 12:00:00 AM EST Posey Sarah - [facility] CHORIONIC GONADOTROPIN ASSAY CHORIONIC GONADOTROPIN ASSAY 12:00:00 AM EST Posey Sarah - [facility], [facility] COMPREHEN METABOLIC PANEL COMPREHEN METABOLIC PANEL 04/27/2019 1 2:00:00 AM EST Posey Sarah - [facility], [facility] BLOOD COUNT COMPLETE AUTO&AUTO DIFRNTL WBC COUNT COMPLETE CB C W/AUTO DIFF WBC 04/27/2019 12:00:00 AM EST Posey Sarah - [facility] FIBRIN DEGRADATION QUANT FIBRIN DEGRADATION QUANT 04/27/2019 12:00: 00 AM EST Posey Sarah - [facility], [facility] ASSAY OF TROPONIN QUANT ASSAY OF TROPONIN QUANT 04/27/2019 12:00:00 AM EST Posey Sarah - [facility] X-RAY EXAM CHEST 2 VIEWS X-RAY EXAM CHEST 2 VIEWS 04/27/2019 12:00: 00 AM EST Posey Sarah - [facility] ROUTINE VENIPUNCTURE ROUTINE VENIPUNCTURE 04/27/2019 12:00:00 AM ES T Posey Sarah - [facility] ELECTROCARDIOGRAM TRACING ELECTROCARDIOGRAM TRACING 04/27/2019 1 2:00:00 AM EST Posey Sarah - [facility] EMERGENCY DEPT VISIT EMERGENCY DEPT VISIT 04/27/2019 12:00:00 AM ES T Posey Sarah - [facility] COMPREHEN METABOLIC PANEL COMPREHEN METABOLIC PANEL 04/27/2019 1 2:00:00 AM EST Posey Sarah - [facility] ROUTINE VENIPUNCTURE ROUTINE VENIPUNCTURE 04/27/2019 12:00:00 AM ES T Posey Sarah - [facility] CHORIONIC GONADOTROPIN ASSAY CHORIONIC GONADOTROPIN ASSAY 12:00:00 AM EST Posey Sarah - [facility] X-RAY EXAM CHEST 2 VIEWS X-RAY EXAM CHEST 2 VIEWS 04/27/2019 12:00: 00 AM EST Posey Sarah - [facility] FIBRIN DEGRADATION QUANT FIBRIN DEGRADATION QUANT 04/27/2019 12:00: 00 AM EST Posey Sarah - [facility] ELECTROCARDIOGRAM TRACING ELECTROCARDIOGRAM TRACING 04/27/2019 1 2:00:00 AM EST Posey Sarah - [facility] ASSAY OF TROPONIN QUANT ASSAY OF TROPONIN QUANT 04/27/2019 12:00:00 AM EST Posey Sarah - [facility] EMERGENCY DEPT VISIT EMERGENCY DEPT VISIT 04/27/2019 12:00:00 AM ES T Posey Sarah - [facility] BLOOD COUNT COMPLETE AUTO&AUTO DIFRNTL WBC COUNT COMPLETE CB C W/AUTO DIFF WBC 04/27/2019 12:00:00 AM EST Posey Sarah [facility] X-RAY EXAM OF KNEE 1 OR 2 X-RAY EXAM OF KNEE 1 OR 2 04/24/2019 1 2:00:00 AM EST Posey Sarah - [facility] POSTOP FOLLOW-UP VISIT POSTOP FOLLOW-UP VISIT 04/24/2019 12:00:00 A M EST Posey Sarah - [facility] X-RAY EXAM OF KNEE 1 OR 2 X-RAY EXAM OF KNEE 1 OR 2 04/24/2019 1 2:00:00 AM EST Posey Sarah - [facility] POSTOP FOLLOW-UP VISIT POSTOP FOLLOW-UP VISIT 04/24/2019 12:00:00 A M EST Posey Sarah - [facility] X-Ray Knee Ap & Lateral 04/24/2019 12:00:00 AM EST [facility] ([facility]) X-RAY EXAM OF KNEE 1 OR 2 X-RAY EXAM OF KNEE 1 OR 2 04/24/2019 1 2:00:00 AM EST Posey Sarah - [facility] POSTOP FOLLOW-UP VISIT POSTOP FOLLOW-UP VISIT 04/24/2019 12:00:00 A M EST Posey Sarah - [facility] X-RAY EXAM OF KNEE 1 OR 2 X-RAY EXAM OF KNEE 1 OR 2 04/24/2019 1 2:00:00 AM EST Posey Sarah - [facility] POSTOP FOLLOW-UP VISIT POSTOP FOLLOW-UP VISIT 04/24/2019 12:00:00 A M EST Posey Sarah - [facility] POSTOP FOLLOW-UP VISIT POSTOP FOLLOW-UP VISIT 04/24/2019 12:00:00 A M EST Posey Sarah - [facility] X-RAY EXAM OF KNEE 1 OR 2 X-RAY EXAM OF KNEE 1 OR 2 04/24/2019 1 2:00:00 AM EST Posey Sarah - [facility] Reposition Left Knee Joint, Open Approach Reposition L eft Knee Joint, Open Approach 04/10/2019 12:00:00 AM EST Posey Tonja rdes - [facility] REVISION OF UNSTABLE KNEECAP REVISION OF UNSTABLE KNEECAP 12:00:00 AM EST Posey Sarah - [facility] left knee reconstruction left knee reconstruction 04/10/2019 12:00: 00 AM EST Posey Sarah - [facility] RECONSTRUCTION KNEE RECONSTRUCTION KNEE 04/10/2019 12:00:00 AM EST Posey Sarah - [facility] REVISION OF UNSTABLE KNEECAP REVISION OF UNSTABLE KNEECAP 12:00:00 AM EST Posey Sarah - [facility] Reposition Left Knee Joint, Open Approach Reposition L eft Knee Joint, Open Approach 04/10/2019 12:00:00 AM EST Posey Tonja rdes - [facility] RECONSTRUCTION KNEE RECONSTRUCTION KNEE 04/10/2019 12:00:00 AM EST Posey Sarah - [facility] REVISION OF UNSTABLE KNEECAP REVISION OF UNSTABLE KNEECAP 12:00:00 AM EST Posey Sarah - [facility] left knee reconstruction left knee reconstruction 04/10/2019 12:00: 00 AM EST Posey Sarah - [facility] REVISION OF UNSTABLE KNEECAP REVISION OF UNSTABLE KNEECAP 12:00:00 AM EST Posey Sarah - [facility] Reconstruct Patella W/Extensor Realignment/Muscle Advance/Re lease 04/10/2019 12:00:00 AM EST [facility] ([facility]) Reconstruct Patella W/Extensor Realignment/Muscle Advance/Re lease 04/10/2019 12:00:00 AM EST [facility] ([facility]) left knee reconstruction left knee reconstruction 04/10/2019 12:00: 00 AM EST Posey Sarah - [facility] REVISION OF UNSTABLE KNEECAP REVISION OF UNSTABLE KNEECAP 12:00:00 AM EST Posey Sarah - [facility] RECONSTRUCTION KNEE RECONSTRUCTION KNEE 04/10/2019 12:00:00 AM EST Posey Sarah - [facility] REVISION OF UNSTABLE KNEECAP REVISION OF UNSTABLE KNEECAP 12:00:00 AM EST Posey Sarah - [facility] Reposition Left Knee Joint, Open Approach Reposition L eft Knee Joint, Open Approach 04/10/2019 12:00:00 AM EST Posey Tonja rdes - [facility], [facility] REVISION OF UNSTABLE KNEECAP REVISION OF UNSTABLE KNEECAP 12:00:00 AM EST Posey Sarah - [facility] RECONSTRUCTION KNEE RECONSTRUCTION KNEE 04/10/2019 12:00:00 AM EST Posey Sarah - [facility] REVISION OF UNSTABLE KNEECAP REVISION OF UNSTABLE KNEECAP 12:00:00 AM EST Posey Sarah - [facility] left knee reconstruction left knee reconstruction 04/10/2019 12:00: 00 AM EST Posey Sarah - [facility] Reposition Left Knee Joint, Open Approach Reposition L eft Knee Joint, Open Approach 04/10/2019 12:00:00 AM EST Posey Tonja rdes - [facility] left knee reconstruction left knee reconstruction 04/10/2019 12:00: 00 AM EST Posey Sarah - [facility] REVISION OF UNSTABLE KNEECAP REVISION OF UNSTABLE KNEECAP 12:00:00 AM EST Posey Sarah - [facility] REVISION OF UNSTABLE KNEECAP REVISION OF UNSTABLE KNEECAP 12:00:00 AM EST Posey Sarah - [facility] Reposition Left Knee Joint, Open Approach Reposition L eft Knee Joint, Open Approach 04/10/2019 12:00:00 AM EST Posey Tonja rdes - [facility] RECONSTRUCTION KNEE RECONSTRUCTION KNEE 04/10/2019 12:00:00 AM EST Posey Sarah - [facility] REVISION OF UNSTABLE KNEECAP REVISION OF UNSTABLE KNEECAP 12:00:00 AM EST Posey Sarah - [facility] REVISION OF UNSTABLE KNEECAP REVISION OF UNSTABLE KNEECAP 12:00:00 AM EST Posey Sarah - [facility] Reposition Left Knee Joint, Open Approach Reposition L eft Knee Joint, Open Approach 04/10/2019 12:00:00 AM EST Posey Tonja rdes - [facility] RECONSTRUCTION KNEE RECONSTRUCTION KNEE 04/10/2019 12:00:00 AM EST Posey Sarah - [facility] OFFICE/OUTPATIENT VISIT EST OFFICE/OUTPATIENT VISIT EST 05/2019 12:00:00 AM EST Posey Sarah - [facility] OFFICE/OUTPATIENT VISIT EST OFFICE/OUTPATIENT VISIT EST 05/2019 12:00:00 AM EST Posey Sarah - [facility] OFFICE/OUTPATIENT VISIT EST OFFICE/OUTPATIENT VISIT EST 05/2019 12:00:00 AM EST Posey Sarah - [facility] OFFICE/OUTPATIENT VISIT EST OFFICE/OUTPATIENT VISIT EST 05/2019 12:00:00 AM EST Posey Sarah - [facility] OFFICE/OUTPATIENT VISIT EST OFFICE/OUTPATIENT VISIT EST 05/2019 12:00:00 AM EST Posey Sarah - [facility] OFFICE/OUTPATIENT VISIT EST OFFICE/OUTPATIENT VISIT EST 05/2019 12:00:00 AM EST Posey Sarah - [facility] ONDANSETRON HCL INJECTION ONDANSETRON HCL INJECTION 04/03/2019 1 2:00:00 AM EST Posey Sarah - [facility] URINE CULTURE/COLONY COUNT URINE CULTURE/COLONY COUNT 2019 12:00:00 AM EST Posey Sarah - [facility] C-REACTIVE PROTEIN C-REACTIVE PROTEIN 04/03/2019 12:00:00 AM EST Posey Sarah - [facility] EMERGENCY DEPT VISIT EMERGENCY DEPT VISIT 04/03/2019 12:00:00 AM ES T Posey Sarah - [facility] CT ABD & PELVIS W/O CONTRAST CT ABD & PELVIS W/O CONTRAST 12:00:00 AM EST Posey Sarah - [facility] THER/PROPH/DIAG INJ IV PUSH THER/PROPH/DIAG INJ IV PUSH 04/2019 12:00:00 AM EST Posey Sarah - [facility] ASSAY OF LIPASE ASSAY OF LIPASE 04/03/2019 12:00:00 AM EST Posey Sarah - [facility] BLOOD COUNT COMPLETE AUTO&AUTO DIFRNTL WBC COUNT COMPLETE CB C W/AUTO DIFF WBC 04/03/2019 12:00:00 AM EST Posey Sarah - [facility] ROUTINE VENIPUNCTURE ROUTINE VENIPUNCTURE 04/03/2019 12:00:00 AM ES T Posey Sarah - [facility] COMPREHEN METABOLIC PANEL COMPREHEN METABOLIC PANEL 04/03/2019 1 2:00:00 AM EST Posey Sarah - [facility] URINALYSIS AUTO W/SCOPE URINALYSIS AUTO W/SCOPE 04/03/2019 12:00:00 AM EST Posey Sarah - [facility] CHORIONIC GONADOTROPIN ASSAY CHORIONIC GONADOTROPIN ASSAY 12:00:00 AM EST Posey Sarah - [facility] Catheterize for urine spec Catheterize for urine spec 2019 12:00:00 AM EST Posey Sarah - [facility] URINALYSIS AUTO W/SCOPE URINALYSIS AUTO W/SCOPE 04/03/2019 12:00:00 AM EST Posey Sarah - [facility] EMERGENCY DEPT VISIT EMERGENCY DEPT VISIT 04/03/2019 12:00:00 AM ES T Posey Sarah - [facility] ONDANSETRON HCL INJECTION ONDANSETRON HCL INJECTION 04/03/2019 1 2:00:00 AM EST Posey Sarah - [facility] URINE CULTURE/COLONY COUNT URINE CULTURE/COLONY COUNT 2019 12:00:00 AM EST Posey Sarah - [facility] C-REACTIVE PROTEIN C-REACTIVE PROTEIN 04/03/2019 12:00:00 AM EST Posey Sarah - [facility] ROUTINE VENIPUNCTURE ROUTINE VENIPUNCTURE 04/03/2019 12:00:00 AM ES T Posey Sarah - [facility] CHORIONIC GONADOTROPIN ASSAY CHORIONIC GONADOTROPIN ASSAY 12:00:00 AM EST Posey Sarah - [facility] Catheterize for urine spec Catheterize for urine spec 2019 12:00:00 AM EST Posey Sarah - [facility] BLOOD COUNT COMPLETE AUTO&AUTO DIFRNTL WBC COUNT COMPLETE CB C W/AUTO DIFF WBC 04/03/2019 12:00:00 AM EST Posey Sarah - [facility] COMPREHEN METABOLIC PANEL COMPREHEN METABOLIC PANEL 04/03/2019 1 2:00:00 AM EST Posey Sarah - [facility] CT ABD & PELVIS W/O CONTRAST CT ABD & PELVIS W/O CONTRAST 12:00:00 AM EST Posey Sarah - [facility] THER/PROPH/DIAG INJ IV PUSH THER/PROPH/DIAG INJ IV PUSH 04/2019 12:00:00 AM EST Posey Sarah - [facility] ASSAY OF LIPASE ASSAY OF LIPASE 04/03/2019 12:00:00 AM EST Posey Sarah - [facility] THER/PROPH/DIAG INJ IV PUSH THER/PROPH/DIAG INJ IV PUSH 04/2019 12:00:00 AM EST Posey Sarah - [facility] BLOOD COUNT COMPLETE AUTO&AUTO DIFRNTL WBC COUNT COMPLETE CB C W/AUTO DIFF WBC 04/03/2019 12:00:00 AM EST Posey Sarah - [facility] CHORIONIC GONADOTROPIN ASSAY CHORIONIC GONADOTROPIN ASSAY 12:00:00 AM EST Posey Sarah - [facility] Catheterize for urine spec Catheterize for urine spec 2019 12:00:00 AM EST Posey Sarah - [facility] ASSAY OF LIPASE ASSAY OF LIPASE 04/03/2019 12:00:00 AM EST Posey Sarah - [facility] URINE CULTURE/COLONY COUNT URINE CULTURE/COLONY COUNT 2019 12:00:00 AM EST Posey Sarah - [facility] URINALYSIS AUTO W/SCOPE URINALYSIS AUTO W/SCOPE 04/03/2019 12:00:00 AM EST Posey Sarah - [facility] C-REACTIVE PROTEIN C-REACTIVE PROTEIN 04/03/2019 12:00:00 AM EST Posey Sarah - [facility] ROUTINE VENIPUNCTURE ROUTINE VENIPUNCTURE 04/03/2019 12:00:00 AM ES T Posey Sarah - [facility] ONDANSETRON HCL INJECTION ONDANSETRON HCL INJECTION 04/03/2019 1 2:00:00 AM EST Posey Sarah - [facility] COMPREHEN METABOLIC PANEL COMPREHEN METABOLIC PANEL 04/03/2019 1 2:00:00 AM EST Posey Sarah - [facility] CT ABD & PELVIS W/O CONTRAST CT ABD & PELVIS W/O CONTRAST 12:00:00 AM EST Posey Sarah - [facility] EMERGENCY DEPT VISIT EMERGENCY DEPT VISIT 04/03/2019 12:00:00 AM ES T Poseyjohn Smith - [facility] BLOOD COUNT COMPLETE AUTO&AUTO DIFRNTL WBC COUNT COMPLETE CB C W/AUTO DIFF WBC 04/03/2019 12:00:00 AM EST Posey Sarah - [facility] ONDANSETRON HCL INJECTION ONDANSETRON HCL INJECTION 04/03/2019 1 2:00:00 AM EST Posey Sarah - [facility] URINE CULTURE/COLONY COUNT URINE CULTURE/COLONY COUNT 2019 12:00:00 AM EST Posey Sarah - [facility] C-REACTIVE PROTEIN C-REACTIVE PROTEIN 04/03/2019 12:00:00 AM EST Posey Sarah - [facility] CHORIONIC GONADOTROPIN ASSAY CHORIONIC GONADOTROPIN ASSAY 12:00:00 AM EST Posey Sarah - [facility] ASSAY OF LIPASE ASSAY OF LIPASE 04/03/2019 12:00:00 AM EST Posey Sarah - [facility] THER/PROPH/DIAG INJ IV PUSH THER/PROPH/DIAG INJ IV PUSH 04/2019 12:00:00 AM EST Posey Sarah - [facility] Catheterize for urine spec Catheterize for urine spec 2019 12:00:00 AM EST Posey Sarah - [facility] COMPREHEN METABOLIC PANEL COMPREHEN METABOLIC PANEL 04/03/2019 1 2:00:00 AM EST Posey Sarah - [facility] URINALYSIS AUTO W/SCOPE URINALYSIS AUTO W/SCOPE 04/03/2019 12:00:00 AM EST Posey Sarah - [facility] ROUTINE VENIPUNCTURE ROUTINE VENIPUNCTURE 04/03/2019 12:00:00 AM ES T Posey Sarah - [facility] EMERGENCY DEPT VISIT EMERGENCY DEPT VISIT 04/03/2019 12:00:00 AM ES T Posey Sarah - [facility] CT ABD & PELVIS W/O CONTRAST CT ABD & PELVIS W/O CONTRAST 12:00:00 AM EST Posey Sarah - [facility] BLOOD COUNT COMPLETE AUTO&AUTO DIFRNTL WBC COUNT COMPLETE CB C W/AUTO DIFF WBC 04/03/2019 12:00:00 AM EST Posey Sarah - [facility] ROUTINE VENIPUNCTURE ROUTINE VENIPUNCTURE 04/03/2019 12:00:00 AM ES T Posey Sarah - [facility] COMPREHEN METABOLIC PANEL COMPREHEN METABOLIC PANEL 04/03/2019 1 2:00:00 AM EST Posey Sarah - [facility] CT ABD & PELVIS W/O CONTRAST CT ABD & PELVIS W/O CONTRAST 12:00:00 AM EST Posey Sarah - [facility] URINALYSIS AUTO W/SCOPE URINALYSIS AUTO W/SCOPE 04/03/2019 12:00:00 AM EST Posey Sarah - [facility] C-REACTIVE PROTEIN C-REACTIVE PROTEIN 04/03/2019 12:00:00 AM EST Posey Sarah - [facility] ASSAY OF LIPASE ASSAY OF LIPASE 04/03/2019 12:00:00 AM EST Posey Sarah - [facility] Catheterize for urine spec Catheterize for urine spec 2019 12:00:00 AM EST Posey Sarah - [facility] ONDANSETRON HCL INJECTION ONDANSETRON HCL INJECTION 04/03/2019 1 2:00:00 AM EST Posey Sarah - [facility] URINE CULTURE/COLONY COUNT URINE CULTURE/COLONY COUNT 2019 12:00:00 AM EST Posey Sarah - [facility] THER/PROPH/DIAG INJ IV PUSH THER/PROPH/DIAG INJ IV PUSH /0 04/2019 12:00:00 AM EST Posey Sarah - [facility] CHORIONIC GONADOTROPIN ASSAY CHORIONIC GONADOTROPIN ASSAY 12:00:00 AM EST Posey Sarah - [facility] EMERGENCY DEPT VISIT EMERGENCY DEPT VISIT 04/03/2019 12:00:00 AM ES T Posey Sarah - [facility] THER/PROPH/DIAG INJ IV PUSH THER/PROPH/DIAG INJ IV PUSH 04/2019 12:00:00 AM EST Posey Asrah - [facility] C-REACTIVE PROTEIN C-REACTIVE PROTEIN 04/03/2019 12:00:00 AM EST Posey Sarah - [facility] COMPREHEN METABOLIC PANEL COMPREHEN METABOLIC PANEL 04/03/2019 1 2:00:00 AM EST Posey Sarah - [facility] ROUTINE VENIPUNCTURE ROUTINE VENIPUNCTURE 04/03/2019 12:00:00 AM ES T Posey Sarah - [facility] URINALYSIS AUTO W/SCOPE URINALYSIS AUTO W/SCOPE 04/03/2019 12:00:00 AM EST Posey Sarah - [facility] BLOOD COUNT COMPLETE AUTO&AUTO DIFRNTL WBC COUNT COMPLETE CB C W/AUTO DIFF WBC 04/03/2019 12:00:00 AM EST Posey Sarah - [facility] EMERGENCY DEPT VISIT EMERGENCY DEPT VISIT 04/03/2019 12:00:00 AM ES T Posey Sarah - [facility] ONDANSETRON HCL INJECTION ONDANSETRON HCL INJECTION 04/03/2019 1 2:00:00 AM EST Posey Sarah - [facility] CHORIONIC GONADOTROPIN ASSAY CHORIONIC GONADOTROPIN ASSAY 12:00:00 AM EST Posey Sarah - [facility] URINE CULTURE/COLONY COUNT URINE CULTURE/COLONY COUNT 2019 12:00:00 AM EST Posey Sarah - [facility] Catheterize for urine spec Catheterize for urine spec 2019 12:00:00 AM EST Posey Sarah - [facility] CT ABD & PELVIS W/O CONTRAST CT ABD & PELVIS W/O CONTRAST 12:00:00 AM EST Posey Sarah - [facility] ASSAY OF LIPASE ASSAY OF LIPASE 04/03/2019 12:00:00 AM EST Posey Sarah - [facility] C-REACTIVE PROTEIN C-REACTIVE PROTEIN 04/03/2019 12:00:00 AM EST Posey Sarah - [facility] Catheterize for urine spec Catheterize for urine spec 2019 12:00:00 AM EST Posey Sarah - [facility] BLOOD COUNT COMPLETE AUTO&AUTO DIFRNTL WBC COUNT COMPLETE CB C W/AUTO DIFF WBC 04/03/2019 12:00:00 AM EST Posey Sarah - [facility] COMPREHEN METABOLIC PANEL COMPREHEN METABOLIC PANEL 04/03/2019 1 2:00:00 AM EST Posey Sarah - [facility] CHORIONIC GONADOTROPIN ASSAY CHORIONIC GONADOTROPIN ASSAY 12:00:00 AM EST Posey Sarah - [facility] ONDANSETRON HCL INJECTION ONDANSETRON HCL INJECTION 04/03/2019 1 2:00:00 AM EST Posey Sarah - [facility] URINE CULTURE/COLONY COUNT URINE CULTURE/COLONY COUNT 2019 12:00:00 AM EST Posey Sarah - [facility] CT ABD & PELVIS W/O CONTRAST CT ABD & PELVIS W/O CONTRAST 12:00:00 AM EST Posey Sarah - [facility] ROUTINE VENIPUNCTURE ROUTINE VENIPUNCTURE 04/03/2019 12:00:00 AM ES T Posey Sarah - [facility] EMERGENCY DEPT VISIT EMERGENCY DEPT VISIT 04/03/2019 12:00:00 AM ES T Posey Sarah - [facility] URINALYSIS AUTO W/SCOPE URINALYSIS AUTO W/SCOPE 04/03/2019 12:00:00 AM EST Posey Sarah - [facility] THER/PROPH/DIAG INJ IV PUSH THER/PROPH/DIAG INJ IV PUSH 04/2019 12:00:00 AM EST Posey Sarah - [facility] ASSAY OF LIPASE ASSAY OF LIPASE 04/03/2019 12:00:00 AM EST Posey Sarah - [facility] URINE CULTURE/COLONY COUNT URINE CULTURE/COLONY COUNT 2019 12:00:00 AM EST Posey Sarah - [facility] OFFICE/OUTPATIENT VISIT EST OFFICE/OUTPATIENT VISIT EST 03/02 12:00:00 AM EST Posey Sarah - [facility] OFFICE/OUTPATIENT VISIT EST OFFICE/OUTPATIENT VISIT EST 03/02 12:00:00 AM EST Posey Sarah - [facility] URINE CULTURE/COLONY COUNT URINE CULTURE/COLONY COUNT 2019 12:00:00 AM EST Posey Sarah - [facility] URINE CULTURE/COLONY COUNT URINE CULTURE/COLONY COUNT 2019 12:00:00 AM EST Posey Sarah - [facility] URINE CULTURE/COLONY COUNT URINE CULTURE/COLONY COUNT 2019 12:00:00 AM EST Posey Sarah - [facility] URINE CULTURE/COLONY COUNT URINE CULTURE/COLONY COUNT 2019 12:00:00 AM EST Posey Sarah - [facility] URINE CULTURE/COLONY COUNT URINE CULTURE/COLONY COUNT 2019 12:00:00 AM EST Posey Sarah - [facility] URINE CULTURE/COLONY COUNT URINE CULTURE/COLONY COUNT 2019 12:00:00 AM EST Posey Sarah - [facility] URINE CULTURE/COLONY COUNT URINE CULTURE/COLONY COUNT 2019 12:00:00 AM EST Posey Sarah - [facility] URINE CULTURE/COLONY COUNT URINE CULTURE/COLONY COUNT 2019 12:00:00 AM EST Posey Sarah - [facility] CHORIONIC GONADOTROPIN ASSAY CHORIONIC GONADOTROPIN ASSAY 12:00:00 AM EST Posey Sarah - [facility] ASSAY OF AMYLASE ASSAY OF AMYLASE 02/18/2019 12:00:00 AM EST Posey Sarah - [facility] COMPREHEN METABOLIC PANEL COMPREHEN METABOLIC PANEL 02/18/2019 1 2:00:00 AM EST Posey Sarah - [facility] EMERGENCY DEPT VISIT EMERGENCY DEPT VISIT 02/18/2019 12:00:00 AM ES T Posey Sarah - [facility] CT ABD & PELV W/CONTRAST CT ABD & PELV W/CONTRAST 02/18/2019 12:00: 00 AM EST Posey Sarah - [facility] THROMBOPLASTIN TIME PARTIAL THROMBOPLASTIN TIME PARTIAL 01/30 12:00:00 AM EST Posey Sarah - [facility] TRANSVAGINAL US NON-OB TRANSVAGINAL US NON-OB 02/18/2019 12:00:00 A M EST Posey Sarah - [facility] BLOOD COUNT COMPLETE AUTO&AUTO DIFRNTL WBC COUNT COMPLETE CB C W/AUTO DIFF WBC 02/18/2019 12:00:00 AM EST [facility]y Sarah - [facility] C-REACTIVE PROTEIN C-REACTIVE PROTEIN 02/18/2019 12:00:00 AM EST Posey Sarah - [facility] KETOROLAC TROMETHAMINE INJ KETOROLAC TROMETHAMINE INJ 2018 12:00:00 AM EST Posey Sarah - [facility] ROUTINE VENIPUNCTURE ROUTINE VENIPUNCTURE 02/18/2019 12:00:00 AM ES T Posey Sarah - [facility] ROUTINE VENIPUNCTURE ROUTINE VENIPUNCTURE 02/18/2019 12:00:00 AM ES T Posey Sarah - [facility] THER/PROPH/DIAG INJ IV PUSH THER/PROPH/DIAG INJ IV PUSH 01/30 12:00:00 AM EST Posey Sarah - [facility] ASSAY OF LIPASE ASSAY OF LIPASE 02/18/2019 12:00:00 AM EST Posey Sarah - [facility] EMERGENCY DEPT VISIT EMERGENCY DEPT VISIT 02/18/2019 12:00:00 AM ES T Posey Sarah - [facility] C-REACTIVE PROTEIN C-REACTIVE PROTEIN 02/18/2019 12:00:00 AM EST Posey Sarah - [facility] THROMBOPLASTIN TIME PARTIAL THROMBOPLASTIN TIME PARTIAL 01/30 12:00:00 AM EST Posey Sarah - [facility] KETOROLAC TROMETHAMINE INJ KETOROLAC TROMETHAMINE INJ 2018 12:00:00 AM EST Posey Sarah - [facility] ROUTINE VENIPUNCTURE ROUTINE VENIPUNCTURE 02/18/2019 12:00:00 AM ES T Posey Sarah - [facility] CHORIONIC GONADOTROPIN ASSAY CHORIONIC GONADOTROPIN ASSAY 12:00:00 AM EST Posey Sarah - [facility] ASSAY OF LIPASE ASSAY OF LIPASE 02/18/2019 12:00:00 AM EST Posey Sarah - [facility] COMPREHEN METABOLIC PANEL COMPREHEN METABOLIC PANEL 02/18/2019 1 2:00:00 AM EST Posey Sarah - [facility] BLOOD COUNT COMPLETE AUTO&AUTO DIFRNTL WBC COUNT COMPLETE CB C W/AUTO DIFF WBC 02/18/2019 12:00:00 AM EST Posey Sarah - [facility] THER/PROPH/DIAG INJ IV PUSH THER/PROPH/DIAG INJ IV PUSH 01/30 12:00:00 AM EST Posey Sarah - [facility] CT ABD & PELV W/CONTRAST CT ABD & PELV W/CONTRAST 02/18/2019 12:00: 00 AM EST Posey Sarah - [facility] TRANSVAGINAL US NON-OB TRANSVAGINAL US NON-OB 02/18/2019 12:00:00 A M EST Posey Sarah - [facility] ASSAY OF AMYLASE ASSAY OF AMYLASE 02/18/2019 12:00:00 AM EST Posey Sarah - [facility] ROUTINE VENIPUNCTURE ROUTINE VENIPUNCTURE 02/18/2019 12:00:00 AM ES T Posey Sarah - [facility] THROMBOPLASTIN TIME PARTIAL THROMBOPLASTIN TIME PARTIAL 01/30 12:00:00 AM EST Posey Sarah - [facility] KETOROLAC TROMETHAMINE INJ KETOROLAC TROMETHAMINE INJ 2018 12:00:00 AM EST Posey Sarah - [facility] ROUTINE VENIPUNCTURE ROUTINE VENIPUNCTURE 02/18/2019 12:00:00 AM ES T Posey Sarah - [facility] THER/PROPH/DIAG INJ IV PUSH THER/PROPH/DIAG INJ IV PUSH 01/30 12:00:00 AM EST Posey Sarah - [facility] CHORIONIC GONADOTROPIN ASSAY CHORIONIC GONADOTROPIN ASSAY 12:00:00 AM EST Posey Sarah - [facility] TRANSVAGINAL US NON-OB TRANSVAGINAL US NON-OB 02/18/2019 12:00:00 A M EST Posey Sarah - [facility] BLOOD COUNT COMPLETE AUTO&AUTO DIFRNTL WBC COUNT COMPLETE CB C W/AUTO DIFF WBC 02/18/2019 12:00:00 AM EST Posey Sarah - [facility] ROUTINE VENIPUNCTURE ROUTINE VENIPUNCTURE 02/18/2019 12:00:00 AM ES T Posey Sarah - [facility] EMERGENCY DEPT VISIT EMERGENCY DEPT VISIT 02/18/2019 12:00:00 AM ES T Posey Sarah - [facility] ASSAY OF LIPASE ASSAY OF LIPASE 02/18/2019 12:00:00 AM EST Posey Sarah - [facility] CT ABD & PELV W/CONTRAST CT ABD & PELV W/CONTRAST 02/18/2019 12:00: 00 AM EST Posey Sarah - [facility] COMPREHEN METABOLIC PANEL COMPREHEN METABOLIC PANEL 02/18/2019 1 2:00:00 AM EST Posey Sarah - [facility] ASSAY OF AMYLASE ASSAY OF AMYLASE 02/18/2019 12:00:00 AM EST Posey Sarah - [facility] C-REACTIVE PROTEIN C-REACTIVE PROTEIN 02/18/2019 12:00:00 AM EST Posey Sarah - [facility] ROUTINE VENIPUNCTURE ROUTINE VENIPUNCTURE 02/18/2019 12:00:00 AM ES T Posey Sarah - [facility] COMPREHEN METABOLIC PANEL COMPREHEN METABOLIC PANEL 02/18/2019 1 2:00:00 AM EST Posey Sarah - [facility] CHORIONIC GONADOTROPIN ASSAY CHORIONIC GONADOTROPIN ASSAY 12:00:00 AM EST Posey Sarah - [facility] ROUTINE VENIPUNCTURE ROUTINE VENIPUNCTURE 02/18/2019 12:00:00 AM ES T Posey Sarah - [facility] C-REACTIVE PROTEIN C-REACTIVE PROTEIN 02/18/2019 12:00:00 AM EST Posey Sarah - [facility] ASSAY OF LIPASE ASSAY OF LIPASE 02/18/2019 12:00:00 AM EST Posey Sarah - [facility] ASSAY OF AMYLASE ASSAY OF AMYLASE 02/18/2019 12:00:00 AM EST Posey Sarah - [facility] THER/PROPH/DIAG INJ IV PUSH THER/PROPH/DIAG INJ IV PUSH 01/30 12:00:00 AM EST Posey Sarah - [facility] KETOROLAC TROMETHAMINE INJ KETOROLAC TROMETHAMINE INJ 2018 12:00:00 AM EST Posey Sarah - [facility] CT ABD & PELV W/CONTRAST CT ABD & PELV W/CONTRAST 02/18/2019 12:00: 00 AM EST Posey Sarah - [facility] EMERGENCY DEPT VISIT EMERGENCY DEPT VISIT 02/18/2019 12:00:00 AM ES T Posey Sarah - [facility] THROMBOPLASTIN TIME PARTIAL THROMBOPLASTIN TIME PARTIAL 01/30 12:00:00 AM EST Posey Sarah - [facility] BLOOD COUNT COMPLETE AUTO&AUTO DIFRNTL WBC COUNT COMPLETE CB C W/AUTO DIFF WBC 02/18/2019 12:00:00 AM EST Posey Sarah - [facility] TRANSVAGINAL US NON-OB TRANSVAGINAL US NON-OB 02/18/2019 12:00:00 A M EST Posey Sarah - [facility] THROMBOPLASTIN TIME PARTIAL THROMBOPLASTIN TIME PARTIAL 01/30 12:00:00 AM EST Posey Sarah - [facility] CHORIONIC GONADOTROPIN ASSAY CHORIONIC GONADOTROPIN ASSAY 12:00:00 AM EST Posey Sarah - [facility] ROUTINE VENIPUNCTURE ROUTINE VENIPUNCTURE 02/18/2019 12:00:00 AM ES T Posey Sarah - [facility] ROUTINE VENIPUNCTURE ROUTINE VENIPUNCTURE 02/18/2019 12:00:00 AM ES T Posey Sarah - [facility] ASSAY OF AMYLASE ASSAY OF AMYLASE 02/18/2019 12:00:00 AM EST Posey Sarah - [facility] BLOOD COUNT COMPLETE AUTO&AUTO DIFRNTL WBC COUNT COMPLETE CB C W/AUTO DIFF WBC 02/18/2019 12:00:00 AM EST Posey Sarah - [facility] THER/PROPH/DIAG INJ IV PUSH THER/PROPH/DIAG INJ IV PUSH 01/30 12:00:00 AM EST Posey Sarah - [facility] ASSAY OF LIPASE ASSAY OF LIPASE 02/18/2019 12:00:00 AM EST Posey Sarah - [facility] C-REACTIVE PROTEIN C-REACTIVE PROTEIN 02/18/2019 12:00:00 AM EST Posey Sarah - [facility] CT ABD & PELV W/CONTRAST CT ABD & PELV W/CONTRAST 02/18/2019 12:00: 00 AM EST Posey Sarah - [facility] TRANSVAGINAL US NON-OB TRANSVAGINAL US NON-OB 02/18/2019 12:00:00 A M EST Posey Sarah - [facility] COMPREHEN METABOLIC PANEL COMPREHEN METABOLIC PANEL 02/18/2019 1 2:00:00 AM EST Posey Sarah - [facility] KETOROLAC TROMETHAMINE INJ KETOROLAC TROMETHAMINE INJ 2018 12:00:00 AM EST Posey Sarah - [facility] EMERGENCY DEPT VISIT EMERGENCY DEPT VISIT 02/18/2019 12:00:00 AM ES T Posey Sarah - [facility] EMERGENCY DEPT VISIT EMERGENCY DEPT VISIT 02/18/2019 12:00:00 AM ES T Posey Sarah - [facility] COMPREHEN METABOLIC PANEL COMPREHEN METABOLIC PANEL 02/18/2019 1 2:00:00 AM EST Posey Sarah - [facility] TRANSVAGINAL US NON-OB TRANSVAGINAL US NON-OB 02/18/2019 12:00:00 A M EST Posey Sarah - [facility] KETOROLAC TROMETHAMINE INJ KETOROLAC TROMETHAMINE INJ 2018 12:00:00 AM EST Posey Sarah - [facility] ROUTINE VENIPUNCTURE ROUTINE VENIPUNCTURE 02/18/2019 12:00:00 AM ES T Posey Sarah - [facility] CHORIONIC GONADOTROPIN ASSAY CHORIONIC GONADOTROPIN ASSAY 12:00:00 AM EST Posey Sarah - [facility] ASSAY OF LIPASE ASSAY OF LIPASE 02/18/2019 12:00:00 AM EST Posey Sarah - [facility] THER/PROPH/DIAG INJ IV PUSH THER/PROPH/DIAG INJ IV PUSH 01/30 12:00:00 AM EST Posey Sarah - [facility] ASSAY OF AMYLASE ASSAY OF AMYLASE 02/18/2019 12:00:00 AM EST Posey Sarah - [facility] BLOOD COUNT COMPLETE AUTO&AUTO DIFRNTL WBC COUNT COMPLETE CB C W/AUTO DIFF WBC 02/18/2019 12:00:00 AM EST Posey Sarah - [facility] C-REACTIVE PROTEIN C-REACTIVE PROTEIN 02/18/2019 12:00:00 AM EST Posey Sarah - [facility] ROUTINE VENIPUNCTURE ROUTINE VENIPUNCTURE 02/18/2019 12:00:00 AM ES T Posey Sarah - [facility] CT ABD & PELV W/CONTRAST CT ABD & PELV W/CONTRAST 02/18/2019 12:00: 00 AM EST Posey Sarah - [facility] THROMBOPLASTIN TIME PARTIAL THROMBOPLASTIN TIME PARTIAL 01/30 12:00:00 AM EST Posey Sarah - [facility] ASSAY OF AMYLASE ASSAY OF AMYLASE 02/18/2019 12:00:00 AM EST Posey Sarah - [facility] ROUTINE VENIPUNCTURE ROUTINE VENIPUNCTURE 02/18/2019 12:00:00 AM ES T Posey Sarah - [facility] COMPREHEN METABOLIC PANEL COMPREHEN METABOLIC PANEL 02/18/2019 1 2:00:00 AM EST Posey Sarah - [facility] BLOOD COUNT COMPLETE AUTO&AUTO DIFRNTL WBC COUNT COMPLETE CB C W/AUTO DIFF WBC 02/18/2019 12:00:00 AM EST Posey Sarah - [facility] THER/PROPH/DIAG INJ IV PUSH THER/PROPH/DIAG INJ IV PUSH 01/30 12:00:00 AM EST Posey Sarah - [facility] CHORIONIC GONADOTROPIN ASSAY CHORIONIC GONADOTROPIN ASSAY 12:00:00 AM EST Posey Sarah - [facility] KETOROLAC TROMETHAMINE INJ KETOROLAC TROMETHAMINE INJ 2018 12:00:00 AM EST Posey Sarah - [facility] THROMBOPLASTIN TIME PARTIAL THROMBOPLASTIN TIME PARTIAL 01/30 12:00:00 AM EST Posey Sarah - [facility] ASSAY OF LIPASE ASSAY OF LIPASE 02/18/2019 12:00:00 AM EST Posey Sarah - [facility] C-REACTIVE PROTEIN C-REACTIVE PROTEIN 02/18/2019 12:00:00 AM EST Posey Sarah - [facility] ROUTINE VENIPUNCTURE ROUTINE VENIPUNCTURE 02/18/2019 12:00:00 AM ES T Posey Sarah - [facility] TRANSVAGINAL US NON-OB TRANSVAGINAL US NON-OB 02/18/2019 12:00:00 A M EST Posey Sarah - [facility] EMERGENCY DEPT VISIT EMERGENCY DEPT VISIT 02/18/2019 12:00:00 AM ES T Posey Sarah - [facility] CT ABD & PELV W/CONTRAST CT ABD & PELV W/CONTRAST 02/18/2019 12:00: 00 AM EST Posey Sarah - [facility] EMERGENCY DEPT VISIT EMERGENCY DEPT VISIT 02/18/2019 12:00:00 AM ES T Posey Sarah - [facility] KETOROLAC TROMETHAMINE INJ KETOROLAC TROMETHAMINE INJ 2018 12:00:00 AM EST Posey Sarah - [facility] C-REACTIVE PROTEIN C-REACTIVE PROTEIN 02/18/2019 12:00:00 AM EST Posey Sarah - [facility] COMPREHEN METABOLIC PANEL COMPREHEN METABOLIC PANEL 02/18/2019 1 2:00:00 AM EST Posey Sarah - [facility] CT ABD & PELV W/CONTRAST CT ABD & PELV W/CONTRAST 02/18/2019 12:00: 00 AM EST Posey Sarah - [facility] ROUTINE VENIPUNCTURE ROUTINE VENIPUNCTURE 02/18/2019 12:00:00 AM ES T Posey Sarah - [facility] CHORIONIC GONADOTROPIN ASSAY CHORIONIC GONADOTROPIN ASSAY 12:00:00 AM EST Posey Sarah - [facility] ROUTINE VENIPUNCTURE ROUTINE VENIPUNCTURE 02/18/2019 12:00:00 AM ES T Posey Sarah - [facility] ASSAY OF AMYLASE ASSAY OF AMYLASE 02/18/2019 12:00:00 AM EST Posey Sarah - [facility] THROMBOPLASTIN TIME PARTIAL THROMBOPLASTIN TIME PARTIAL 01/30 12:00:00 AM EST Posey Sarah - [facility] TRANSVAGINAL US NON-OB TRANSVAGINAL US NON-OB 02/18/2019 12:00:00 A M EST Posey Sarah - [facility] ASSAY OF LIPASE ASSAY OF LIPASE 02/18/2019 12:00:00 AM EST Posey Sarah - [facility] BLOOD COUNT COMPLETE AUTO&AUTO DIFRNTL WBC COUNT COMPLETE CB C W/AUTO DIFF WBC 02/18/2019 12:00:00 AM EST Posey Sarah - [facility] THER/PROPH/DIAG INJ IV PUSH THER/PROPH/DIAG INJ IV PUSH 01/30 12:00:00 AM EST Posey Sarah - [facility] CHORIONIC GONADOTROPIN ASSAY CHORIONIC GONADOTROPIN ASSAY 12:00:00 AM EST Posey Sarah - [facility] THROMBOPLASTIN TIME PARTIAL THROMBOPLASTIN TIME PARTIAL 01/30 12:00:00 AM EST Posey Sarah - [facility] C-REACTIVE PROTEIN C-REACTIVE PROTEIN 02/18/2019 12:00:00 AM EST Posey Sarah - [facility] ASSAY OF LIPASE ASSAY OF LIPASE 02/18/2019 12:00:00 AM EST Posey Sarah - [facility] THER/PROPH/DIAG INJ IV PUSH THER/PROPH/DIAG INJ IV PUSH 01/30 12:00:00 AM EST Posey Sarah - [facility] COMPREHEN METABOLIC PANEL COMPREHEN METABOLIC PANEL 02/18/2019 1 2:00:00 AM EST Posey Sarah - [facility] ROUTINE VENIPUNCTURE ROUTINE VENIPUNCTURE 02/18/2019 12:00:00 AM ES T Posey Sarah - [facility] EMERGENCY DEPT VISIT EMERGENCY DEPT VISIT 02/18/2019 12:00:00 AM ES T Posey Sarah - [facility] TRANSVAGINAL US NON-OB TRANSVAGINAL US NON-OB 02/18/2019 12:00:00 A M EST Posey Sarah - [facility] BLOOD COUNT COMPLETE AUTO&AUTO DIFRNTL WBC COUNT COMPLETE CB C W/AUTO DIFF WBC 02/18/2019 12:00:00 AM EST Posey Sarah - [facility] CT ABD & PELV W/CONTRAST CT ABD & PELV W/CONTRAST 02/18/2019 12:00: 00 AM EST Posey Sarah - [facility] KETOROLAC TROMETHAMINE INJ KETOROLAC TROMETHAMINE INJ 2018 12:00:00 AM EST Posey Sarah - [facility] ROUTINE VENIPUNCTURE ROUTINE VENIPUNCTURE 02/18/2019 12:00:00 AM ES T Posey Sarah - [facility] ASSAY OF AMYLASE ASSAY OF AMYLASE 02/18/2019 12:00:00 AM EST Posey Sarah - [facility] COMPREHEN METABOLIC PANEL COMPREHEN METABOLIC PANEL 02/18/2019 1 2:00:00 AM EST Posey Sarah - [facility] CHORIONIC GONADOTROPIN ASSAY CHORIONIC GONADOTROPIN ASSAY 12:00:00 AM EST Posey Sarah - [facility] THROMBOPLASTIN TIME PARTIAL THROMBOPLASTIN TIME PARTIAL 01/30 12:00:00 AM EST Posey Sarah - [facility] TRANSVAGINAL US NON-OB TRANSVAGINAL US NON-OB 02/18/2019 12:00:00 A M EST Posey Sarah - [facility] EMERGENCY DEPT VISIT EMERGENCY DEPT VISIT 02/18/2019 12:00:00 AM ES T Posey Sarah - [facility] KETOROLAC TROMETHAMINE INJ KETOROLAC TROMETHAMINE INJ 2018 12:00:00 AM EST Posey Sarah - [facility] ROUTINE VENIPUNCTURE ROUTINE VENIPUNCTURE 02/18/2019 12:00:00 AM ES T Posey Sarah - [facility] THER/PROPH/DIAG INJ IV PUSH THER/PROPH/DIAG INJ IV PUSH 01/30 12:00:00 AM EST Posey Sarah - [facility] C-REACTIVE PROTEIN C-REACTIVE PROTEIN 02/18/2019 12:00:00 AM EST Posey Sarah - [facility] BLOOD COUNT COMPLETE AUTO&AUTO DIFRNTL WBC COUNT COMPLETE CB C W/AUTO DIFF WBC 02/18/2019 12:00:00 AM EST Posey Sarah - [facility] ROUTINE VENIPUNCTURE ROUTINE VENIPUNCTURE 02/18/2019 12:00:00 AM ES T Posey Sarah - [facility] CT ABD & PELV W/CONTRAST CT ABD & PELV W/CONTRAST 02/18/2019 12:00: 00 AM EST Posey Sarah - [facility] ASSAY OF AMYLASE ASSAY OF AMYLASE 02/18/2019 12:00:00 AM EST Posey Sarah - [facility] [facility] ASSAY OF LIPASE ASSAY OF LIPASE 02/18/2019 12:00:00 AM EST [facility]y Sarah - [facility] C-REACTIVE PROTEIN C-REACTIVE PROTEIN 02/18/2019 12:00:00 AM EST [facility]y Sarah - [facility] ROUTINE VENIPUNCTURE ROUTINE VENIPUNCTURE 02/18/2019 12:00:00 AM ES T [facility]y Sarah - [facility] THROMBOPLASTIN TIME PARTIAL THROMBOPLASTIN TIME PARTIAL 01/30 12:00:00 AM EST P[facility]y Sarah - [facility] BLOOD COUNT COMPLETE AUTO&AUTO DIFRNTL WBC COUNT COMPLETE CB C W/AUTO DIFF WBC 02/18/2019 12:00:00 AM EST [facility] Sarah - [facility] EMERGENCY DEPT VISIT EMERGENCY DEPT VISIT 02/18/2019 12:00:00 AM ES T P[facility]y Sarah - [facility] ROUTINE VENIPUNCTURE ROUTINE VENIPUNCTURE 02/18/2019 12:00:00 AM ES T Posey Sarah - [facility] ASSAY OF LIPASE ASSAY OF LIPASE 02/18/2019 12:00:00 AM EST Posey Sarah - [facility] THER/PROPH/DIAG INJ IV PUSH THER/PROPH/DIAG INJ IV PUSH 01/30 12:00:00 AM EST Posey Sarah - [facility] ASSAY OF AMYLASE ASSAY OF AMYLASE 02/18/2019 12:00:00 AM EST Posey Sarah - [facility] CHORIONIC GONADOTROPIN ASSAY CHORIONIC GONADOTROPIN ASSAY 12:00:00 AM EST P[facility]y Sarah - [facility] COMPREHEN METABOLIC PANEL COMPREHEN METABOLIC PANEL 02/18/2019 1 2:00:00 AM EST P[facility]y Sarah - [facility] CT ABD & PELV W/CONTRAST CT ABD & PELV W/CONTRAST 02/18/2019 12:00: 00 AM EST Posey Sarah - [facility] TRANSVAGINAL US NON-OB TRANSVAGINAL US NON-OB 02/18/2019 12:00:00 A M EST Posey Sarah - [facility] KETOROLAC TROMETHAMINE INJ KETOROLAC TROMETHAMINE INJ 2018 12:00:00 AM EST Posey Sarah - [facility] Results ID Date Data Source [id number] 12/20/2019 04:52:57 PM EDT [facility] Name Value Range Interpretation Code Description Data Arianne rce(s) Supporting Document(s) Progress Note [facility] [id number] [facility] [file] [id number]/AIR[employer]ORNE SENSOR [file] [id number] ID Date Data Source [id number] 11/07/2019 11:33:00 PM EDT [facility] 1 OrderSheet [facility] Emergency Department [address] [place] [address] Phone #: mda- [phone] 11/07/2019 23:28 Patient: BERKLEY LOPEZ Sex: F [...] 25 mg M.D.;(NOW x1, HIGH 2 OrderSheet [facility] Emergency Department [address] [place] [address] Phone #: ext- [phone] 11/07/2019 23:28 Patient: BERKLEY LOPEZ Sex: F [...] rce(s) Supporting Document(s) ID Date Data Source [id number] 11/07/2019 11:33:00 PM EDT [facility] 1 Medication Reconciliation Report [facility] Emergency Department [address] [place] [address] Phone #: ext- [phone] 11/07/2019 23:28 Patient: [...] 14 tablet.Refills: 2. Substitution permitted.[id number] [address], [place] [phone]. . -- Ronda Garcia M.D. Name Value Range Interpretation Code Description Data Arianne rce(s) Supporting Document(s) ID Date Data Source [id number] 11/07/2019 11:33:00 PM EDT [facility] 1 Medication Administration Record [facility] Emergency Department [address] [place] [address] Phone #: ext- [phone] 11/07/2019 23:28 Patient: BERKLEY LOPEZ Sex: F : 2000 Age: 19yWeight: 106.5 kgHeight/Length: 66 inBMI: 37.9ALLERGIES: Penicillins Date/Time Medication Administered Medication OrderedStart NS [IV] NS IV 1000 mL Bolus: : Bolus [id number] 11/08/2019 Dose: IV Fluids mL (X1)Tanner Hopson [...] X1 dose: 15 mg00:11/08/2019 TROMETHAMINE) (NOW x1)Tanner Emiliana, RN Dose: 15 mg IVP Site: #2 right upper arm Name Value Range Interpretation Code Description Data Arianne rce(s) Supporting Document(s) ID Date Data Source [id number] 11/07/2019 11:33:00 PM EDT [facility] 1 General Instructions [facility] Emergency Department [address] [place], [place] [id number] Phone #: ext- [phone] 11/07/2019 23:28 Patient: BERKLEY LOPEZ Sex: F : 2000 Age: 19yPrimary dysmenorrheaINSTRUCTIONSDrink plenty of fluids. Do not smoke. No alcohol.Warnings: Further evaluation is necessary (SKYDIVING INSTRUCTOR). It is very important to follow up [...] Dispense 14 tablet.Refills: 2. Substitution permitted.Pharmacy - [facility] #[id number] - [address], [place] [id number]. .Follow-up:Return to the emergency department as needed. Follow up with your healthcare provider in three even ifwell. Call for an appointment. Reason for referral: evaluation and treatment. Summary of care provided topatient via paper. Follow up with a screen printing cloth spreader in three days even if well. Call for an appointment.Reason for referral: evaluation and treatment. Summary of care provided to patient via paper.Understanding of the discharge instructions verbalized by patient. Expected course of illness, dischargeinstructions, activity level, diet, prescriptions x1, follow-up appointment and risks and benefits of treatmentre viewed with patient and understanding verbalized. Agrees to plan of care.Follow- up with: [facility], , , [address], [place], [facility] Follow up in three days even if well. Call for an appointment. Reason for referral: evaluation andtreatment. Summary of care provided to patient via paper. 2 General Instructions [facility] Emergency Department [address] [place] [address] Phone #: ext- [phone] 11/07/2019 23:28 Patient: BERKLEY LOPEZ Sex: F [...] the uterus (not cancer) 3 General Instructions [facility] Emergency Department [address] [place] [address] Phone #: ext- [phone] 11/07/2019 23:28 Patient: [...] or occurs between periods 4 General Instructions [facility] Emergency Department [address] [place] [address] Phone #: ext- [phone] 11/07/2019 23:28 Patient: BERKLEY LOPEZ Sex: F : 2000 Age: 19y Unusual vaginal discharge between periods Bleeding becomes heavy (soaking more than 1 pad or tampon every hour for 3 hours) Passage of pink or rodriguez tissue from the vagina [phone] [employer]. [address] [place] [address]. All rights reserved. This information is not intended as asubstitute for professional medical care. Always follow your healthcare professional's instructions. You have been given the following additional information: Painful Menstrual Periods (Dysmenorrhea)(Electronically signed by Ronda Garcia M.D. 11/08/2019 01:27) Name Value Range Interpretation Code Description Data Arianne rce(s) Supporting Document(s) ID Date Data Source [id number] 11/07/2019 11:33:00 PM EDT [facility] 1 Clinical Report - Nurses [facility] Emergency Department [address] [place] [address] Phone #: ext- [phone] 11/07/2019 23:28 Patient: BERKLEY LOPEZ Sex: F : 2000 Age: 19yTRIAGEArrived by private vehicle. Historian: patient.Triage time: 23:30 11/07/2019.Chief Complaint: PELVIC PAIN and VAGINAL BLEED.Onset. (3 days ago). ( Seen at [facility] for same, spotting this morning. This afternoon she noticed it gettingworse. Was dizzy when watching TV tonight. States that she went through 4 pads today, and has a"couple" golf ball sized clots before. Has PCOS, so her periods are irregular. States that she called buthas not scheduled a WHEEL INSPECTOR follow up yet.). ( Has had 3 [...] her back.Seizure Disorder.PCOS. --23:37 11/07/19 Jennifer Lam [place], R.N.ADDITIONAL SURGERIES:.Knee Surgery. 2 Clinical Report - Nurses [facility] Emergency Department [address] [place] [address] Phone #: ext- [phone] 11/07/2019 23:28 Patient: BERKLEY LOPEZ Sex: F [...] site #2 3 Clinical Report - Nurses [facility] Emergency Department [address] [place] [address] Phone #: ihd- [phone] 11/07/2019 23:28 Patient: BERKLEY LOPEZ Sex: F [...] assist / procedure: 15 minutes. --01:13 11/08/19 Jnenifer Hopson R.N.DISPOSITION / DISCHARGE 01:11/08/2019 Site #2 removed upon discharge. Bandage applied. --01:14 11/08/19 Jennifer Hopson R.N. Condition at departure: improved and stable. No learning barriers present. Follow up contact number WW[facility]. Patient verbalized understanding. Written instructions provided in Afghan. The patient was discharged by the physician. She was discharged home. She left ambulatory and via private vehicle. Parent driving. --01:16 11/08/19 Jennifer Hopson R.N. 01:13 11/08/19. BP: 122/81. MAP: 94. HR: 88. RR: 16. O2 saturation: 99%. Temp: 98 F. Pain level now: 05/08. --01:16 11/08/19 Jennifer Hopson R.N. Departure time: 01:19 11/08/2019. --01:11/08/19 Jennifer Hopson R.N. 4 Clinical Report - Nurses [facility] Emergency Department [address] [place] [address] Phone #: [phone] qst- 1886 11/07/2019 23:28 Patient: BERKLEY LOPEZ Sex: F : 2000 Age: 19yLocked/Released at 11/08/2019 05:05 by Jennifer Hopson R.N. Name Value Range Interpretation Code Description Data Arianne rce(s) Supporting Document(s) ID Date Data Source [id number] 11/07/2019 11:33:00 PM EDT [facility] 1 Clinical Report - Physicians/Mid Levels [facility] Emergency Department [address] [place] [address] Phone #: ext- [phone] 11/07/2019 23:28 Patient: [...] or hematuria. (pt has PCOS, seen at [facility] ER 2 days ago for passing small clot, not ; today, bleeding worse, went through 4 pads w some clots and pelvic pain; her periods are irregular; V x 3 today; was suppose to f/u w WHEEL INSPECTOR but no appt yet). Similar symptoms previously. Patient has had similar symptoms occasionally. Recent medical care: The patient was seen recently at another facility in the emergency department. ( seen at [facility] 2 days ago for passing blood [...] Medications: 2 Clinical Report - Physicians/Mid Levels [facility] Emergency Department [address] [place] [address] Phone #: ext- [phone] 11/07/2019 23:28 Patient: BERKLEY LOPEZ Sex: F [...] 36.0) 3 Clinical Report - Physicians/Mid Levels [facility] Emergency Department [address] [place] [address] Phone #: ext- [phone] 11/07/2019 23:28 Patient: BERKLEY LOPEZ Sex: F [...] Male GFR Interprentation 20-49 yrs >60 mL/min Jsxxsf88-33 yrs >56 mL/min Normal 60-69 yrs >49 mL/min Normal 70-79yrs>42 mL/min Normal 80 and above >35 mL/min Normal Female GFRInterpretation 20-39 yrs >60 mL/min Normal 40-49 yrs >58 mL/minNormal 50-59 yrs >51 mL/min Normal 60-69 yrs >45 mL/min Hvegeh81-20 yrs >39 mL/min Normal 80 and above >32 mL/min NormalLipase: (DEBBI: 11/07/2019 23:37) ( [facility] 11/08/2019 00:17) Final results Test Result Flag Units (Reference) 4 Clinical Report - Physicians/Mid Levels [facility] Emergency Department [address] [place] [address] Phone #: ext- [phone] 11/07/2019 23:28 Patient: BERKLEY LOPEZ Sex: F : 2000 Age: 19y LIPASE 30 U/L (13 - 60) Beta-HCG, Qual Serum: (DEBBI: 11/07/2019 23:37) ( [facility] 11/08/2019 00:22) Final results Test Result Flag Units (Reference) HCG SERUM QUAL NEGATIVE (NORMAL: NEGAT HCG SERUM QL REENTER NEGATIVE (NORMAL: NEGAT { KIT LOT # [id number] ){ KIT EXP DATE 12/11/20 ){ PROCEDURAL CONTROL VALID ) Lactic Acid: (DEBBI: 11/07/2019 23:37) ( [facility] 11/08/2019 00:03) Final results Test Result Flag Units (Reference) LACTIC ACID 2.0 MMOL/L (0.2 - 2.2).PROGRESS AND PROCEDURESCourse of Care: 01:09 11/08/19. pt has nml speculum exam, no bleeding whatsoever; workup all in andnml, not ; probable dysmenorrhea; will refer her to SKYDIVING INSTRUCTOR; d/c instructions given. Patient counseled in person [...] No alcohol. Warnings: Further evaluation is necessary (SKYDIVING INSTRUCTOR). It is very important to follow up [...] worsens. 5 Clinical Report - Physicians/Mid Levels [facility] Emergency Department [address] [place] [address] Phone #: ext- [phone] 11/07/2019 23:28 Patient: BERKLEY LOPEZ Sex: F [...] tablet. Refills: 2. Substitution permitted. Pharmacy - [facility] #[id number] - [address], [place] [id number]. . Follow-up: Return to the emergency department as needed. Follow up with your healthcare provider in three even if well. Call for an appointment. Reason for referral: evaluation and treatment. Summary of care provided to patient via pap er. Follow up with a screen printing cloth spreader in three days even if well. Call [...] to plan of care. Follow-up with: [facility], , , [address] [facility], [place], [address] Follow up in three days even if well. Call for an appointment. Reason for referral: evaluation and treatment. Summary of care provided to patient via paper.(Electronically signed by Ronda Garcia M.D. 11/08/2019 01:27) Name Value Range Interpretation Code Description Data Arianne rce(s) Supporting Document(s) ID Date Data Source [id number] 11/08/2019 12:22:00 AM EDT [facility] Name Value Range Interpretation Code Description Data Arianne rce(s) Supporting Document(s) HCG SERUM QUAL NEGATIVE NORMAL: NEGATIVE [facility] HCG SERUM QL REENTER NEGATIVE NORMAL: NEGATIVE [facility] { KIT LOT # [id number] ){ KIT EXP DATE 12/11/20 ){ PROCEDURAL CONTROL VALID ) ID Date Data Source [id number] 11/08/2019 12:19:00 AM EDT [facility] Name Value Range Interpretation Code Description Data [facility] rce(s) Supporting Document(s) CBC W/AUTOMATED DIFF [facility] COMPLETE BLOOD COUNT Leukocytes [#/volume] in Blood by Automated count 12.9 10^3/uL 4.2 - 11.0 H [facility] Erythrocytes [#/volume] in Blood by Automated count 4.69 10^6/uL 4. 20 - 5.40 [facility] Hemoglobin [Mass/volume] in Blood 13.2 g/dL 12.0 - 16.0 [facility] Hematocrit [Volume Fraction] of Blood by Automated count 39.7 % 3 7.0 - 47.0 [facility] Erythrocyte mean corpuscular volume [Entitic volume] by Auto mated count 84.6 fL 81.0 - 101 [facility] Erythrocyte mean corpuscular hemoglobin [Entitic mass] by Automated count 28.1 pg 27.0 - 34.0 [facility] Erythrocyte mean corpuscular hemoglobin concentration [Mass/volume] by Automated count 33.2 g/dL 31.0 - 36.0 [facility] Erythrocyte distribution width [Ratio] by Automated count 12.9 % 11.5 - 14.5 [facility] Platelets [#/volume] in Blood by Automated count 289 10^3/uL 150 - 45 0 [facility] Platelet mean volume [Entitic volume] in Blood by Automated count 11.2 fL 7.4 - 10.4 H [facility] Neutrophils/100 leukocytes in Blood by Automated count 53.0 % 37. 0 - 80.0 [facility] Lymphocytes/100 leukocytes in Blood by Manual count 34.8 % 25.0 - 40.0 [facility] Monocytes/100 leukocytes in Blood by Automated count 8.1 % 3.0 - 8.0 H [facility] Eosinophils/100 leukocytes in Blood by Automated count 2.9 % 0.0 - 7.0 [facility] Basophils/100 leukocytes in Blood by Automated count 0.8 % 0.0 - 2.5 [facility] %IG 0.4 % 0.0 - 0.0 H [facility] al %NRBC 0.0 % 0.0 - 0.0 [facility] al Neutrophils [#/volume] in Blood by Automated count 6.85 10^3/uL 2.00 - 6.90 [facility] Lymphocytes [#/volume] in Blood by Automated count 4.49 10^3/uL 0.60 - 3.40 H [facility] Monocytes [#/volume] in Blood by Automated count 1.04 10^3/uL 0.00 - 0.90 H [facility] Eosinophils [#/volume] in Blood by Automated count 0.38 10^3/uL 0.00 - 0.70 [facility] Basophils [#/volume] in Blood by Automated count 0.10 10^3/uL 0.00 - 0.20 [facility] #IG 0.05 10^3/uL 0.00 - 0.10 [facility] #NRBC 0.00 10^3/uL 0.00 - 0.00 [facility] MANUAL DIFF SEE BELOW [facility] ital Segmented neutrophils/100 leukocytes in Blood by Manual count 51 % 37 - 80 [facility] %LYMPH 42 % 25 - 40 H [facility] al %MONO 2 % 3 - 8 L [facility] al %EOS 5 % 0 - 7 [facility] al RBC MORPH NOT INDICATED [facility] ID Date Data Source [id number] 11/08/2019 12:16:00 AM EDT [facility] Name Value Range Interpretation Code Description Data Arianne rce(s) Supporting Document(s) Lipase [Enzymatic activity/volume] in Serum or Plasma 30 U/L 13 - 60 [facility] ID Date Data Source [id number] 11/08/2019 12:16:00 AM EDT [facility] Name Value Range Interpretation Code Description Data Arianne rce(s) Supporting Document(s) COMPREHENSIVE METABOLIC PANEL [facility] COMPREHENSIVE METABOLIC PANEL Sodium [Moles/volume] in Serum or Plasma 141 mEq/L 134 - 153 [facility] Potassium [Moles/volume] in Serum or Plasma 4.0 mEq/L 3.6 - 5.0 [facility] Chloride [Moles/volume] in Serum or Plasma 105 mEq/L 98 - 107 [facility] Carbon dioxide, total [Moles/volume] in Serum or Plasma 24 MEQ/L 22 - 30 [facility] Glucose [Mass/volume] in Serum or Plasma 87 MG/DL 65 - 110 [facility] BUN 8 MG/DL 7 - 21 [facility] al Creatinine [Mass/volume] in Serum or Plasma 0.7 MG/DL 0.7 - 1.5 [facility] BUN/CREAT 11 8 - 27 [facility] al Protein [Mass/volume] in Serum or Plasma 6.9 G/DL 6.3 - 8.2 [facility] Albumin [Mass/volume] in Serum or Plasma 4.7 G/DL 3.9 - 5.0 [facility] Globulin [Mass/volume] in Serum by calculation 2.2 GM/DL 2.4 - 3.2 L [facility] A/G RATIO 2.1 0.8 - 2.0 [facility] Calcium [Mass/volume] in Serum or Plasma 9.7 MG/DL 8.4 - 10.2 [facility] Bilirubin.total [Mass/volume] in Serum or Plasma <0.7 MG/DL 0.2 - 1.3 [facility] Alkaline phosphatase [Enzymatic activity/volume] in Serum or Plasma 102 U/L 38 - 126 [facility] Aspartate aminotransferase [Enzymatic activity/volume] in Serum or Plasma 19 U/L 5 - 40 [facility] Alanine aminotransferase [Enzymatic activity/volume] in Seru m or Plasma 22 U/L 7 - 56 [facility] Anion gap 3 in Serum or Plasma 12.0 mmol/L 8.0 - 16.0 [facility] AGE 19 yrs [facility] NON-AA GFR >60 mL/min [facility] ital AFR AMER GFR >60 mL/min [facility] Male GFR In terprentation [...] >32 mL/min Normal ID Date Data Source [id number] 11/08/2019 12:03:00 AM EDT [facility] Name Value Range Interpretation Code Description Data Arianne rce(s) Supporting Document(s) Lactate [Moles/volume] in Serum or Plasma 2.0 MMOL/L 0.2 - 2.2 [facility] ID Date Data Source [id number] 07/20/2019 06:38:00 PM EDT [facility] [id number], [id number], [id number], [id number],[id number], Name Value Range Interpretation Code Description Data Arianne rce(s) Supporting Document(s) IMMAT. GRAN% 0.0-0.5 Normal (applies to non-numeric res ults) [facility] ID Date Data Source [id number] 07/20/2019 06:38:00 PM EDT [facility] [id number], [id number],[id number], [id number],[id number], [id number],[id number], Name Value Range Interpretation Code Description Data Arianne rce(s) Supporting Document(s) ABSOLUTE IMMATURE GRAN 0.00-0.40 Normal (applies to non-n umeric results) [facility] ID Date Data Source [id number] 07/20/2019 06:50:00 PM EDT [facility] [id number],[id number], [id number],[id number], [id number],[id number],088878, [id number],[id number], Name Value Range Interpretation Code Description Data Arianne rce(s) Supporting Document(s) EGFR - NON- Normal (applies to non-numeric results) [facility] >60 mL/min/1.73 EGFR - Normal (applies to non- numeric results) [facility] >60 mL/min/1.73 Potential Chronic Kidne y Disease: <60ml/min/1.73sq meters Kidney Failure: <15ml/min/1.73sq meters ID Date Data Source 07/20/2019 06:45:00 PM EDT [facility] [id number], [id number],[id number], [id number],[id number], [id number], Name Value Range Interpretation Code Description Data Arianne rce(s) Supporting Document(s) URINE RBC 0-2 Above high normal [facility] Services URINE WBC 0-2 Abnormal (applies to non-numeric res ults) [facility] Services BACTERIA FEW Abnormal (applies to non-numeric res ults) [facility] BUDDING YEAST [facility] rvices URINE SQUAMOUS EPI [facility] th Services MUCOUS [facility] Serv[facility] es HYALINE CASTS [facility] rv[facility] CALCIUM OXALATE CRYSTALS PRESENT [facility] ID Date Data Source [id number] 07/20/2019 06:50:00 PM EDT [facility] [id number],[id number], Name Value Range Interpretation Code Description Data Arianne rce(s) Supporting Document(s) LIPASE Normal (applies to non-numeric results) [facility] <300 ID Date Data Source [id number] 07/20/2019 06:50:00 PM EDT [facility] [id number], Name Value Range Interpretation Code Description Data Arianne rce(s) Supporting Document(s) SODIUM 135-146 Normal (applies to non-numeric resul ts) [facility] POTASSIUM 3.5-5.3 Normal (applies to non-numeric resul ts) [facility] CHLORIDE 98-107 Above high normal [facility] CARBON DIOXIDE 21-32 Below low normal [facility] ANION GAP 5-15 Normal (applies to non-numeric resul ts) [facility] GLUCOSE 65-99 Above high normal [facility] Reference Ranges: Normal Fasting Glucose ........65-99 MG/DL Pre-Diabetes ......100-125 MG/DL Provisional Diagnosis of Diabetes .........>125 MG/DL BUN 7-23 Normal (applies to non-numeric results) [facility] CREATININE 0.5-1.0 Normal (applies to non-numeric resul ts) [facility] BUN/CREAT RATIO [facility] CALCIUM 8.4-10.4 Normal (applies to non-numeric resul ts) [facility] TOTAL PROTEIN 6.3-8.2 Normal (applies to non-numeric re sults) [facility] ALBUMIN 3.5-5.0 Normal (applies to non-numeric resul ts) [facility] ALB/GLOB RATIO 1.1-1.8 Normal (applies to non-numeric r esults) [facility] BILIRUBIN, TOTAL 0.0-1.3 Normal (applies to non-numeric results) [facility] ALK PHOSPHATASE 38-126 Normal (applies to non-numeric results) [facility] AST (SGOT) Normal (applies to non-numeric results) [facility] <59 ALT (SGPT) 0-34 Normal (applies to non-numeric resul ts) [facility] Reference Range:Females <35Males <50 ID Date Data Source [id number] 07/20/2019 06:38:00 PM EDT [facility] [id number], Name Value Range Interpretation Code Description Data Arianne rce(s) Supporting Document(s) WBC 4.0-10.5 Above high normal [facility] RBC 4.00-5.20 Above high normal [facility] HEMOGLOBIN 12.2-15.5 Normal (applies to non-numeric resul ts) [facility] HEMATOCRIT 35.0-47.0 Normal (applies to non-numeric resul ts) [facility] MCV 77.0-100.0 Normal (applies to non-numeric resul ts) [facility] MCH 25.0-33.0 Normal (applies to non-numeric resul ts) [facility] MCHC 31.0-36.0 Normal (applies to non-numeric resul ts) [facility] RDW 12.0-17.0 Normal (applies to non-numeric resul ts) [facility] PLATELET COUNT 125-425 Normal (applies to non-numeric r esults) [facility] MPV 8.0-12.0 Normal (applies to non-numeric results) [facility] ABSOLUTE NEUT 1.4-8.4 Normal (applies to non-numeric re sults) [facility] ABSOLUTE LYMPH 1.0-4.0 Normal (applies to non-numeric r esults) [facility] ABSOLUTE MONO 0.0-1.5 Normal (applies to non-numeric re sults) [facility] ABSOLUTE EOS 0.0-0.7 Normal (applies to non-numeric res ults) [facility] ABSOLUTE BASO 0.0-0.1 Normal (applies to non-numeric re sults) [facility] NEUT% 35.0-75.0 Normal (applies to non-numeric resul ts) [facility] LYMPH% 20.0-42.0 Normal (applies to non-numeric resul ts) [facility] MONO% 0.0-15.0 Normal (applies to non-numeric resul ts) [facility] EOS% 0.0-10.0 Normal (applies to non-numeric resul ts) [facility] BASO% 0.0-2.0 Normal (applies to non-numeric resul ts) [facility] ID Date Data Source DE 07/22/2019 07:40:00 AM EDT [facility] Name Value Range Interpretation Code Description Data Arianne rce(s) Supporting Document(s) CLEAN VOIDED URINE CULT [facility] [id number], Name: BERKLEY LOPEZBetsy Littlejohn: 2000 Sex: Sierra# Loc [facility] Site [id number] VSLAB URNC 07/20/19 CLEAN VOIDED URINE CULT FINAL <10,000 CFU/mL NOA SUGGESTIVE OF UROGENITAL SKIN CONTAMINATIONKEY FOR RESULTS: - NEW RESULTATT.PHYS.: DINORAH DOOLEY LOCATION: [facility]--ADM.DATE: 07/20/19 PATIENT : BERKLEY LOPEZ MICROBIOLOGYPRINTED: 07/22/19 07:40 REGULAR 2 PAGE: 2 of 1 1 ID Date Data Source [id number] 07/20/2019 06:41:00 PM EDT [facility] [id number], Name Value Range Interpretation Code Description Data Arianne rce(s) Supporting Document(s) URINE COLOR YELLOW Normal (applies to non-numeric resu lts) [facility] URINE APPEARANCE CLEAR Normal (applies to non-numeric results) [facility] UR SPECIFIC GRAV 1.005-1.030 Normal (applies to non-numeri c results) [facility] URINE PH 5.0-7.5 Normal (applies to non-numeric resul ts) [facility] URINE LEUKOCYTE LARGE NEGATIVE Abnormal (applies to non-numeri c results) [facility] URINE NITRITE NEGATIVE NEGATIVE Normal (applies to non-numeric re sults) [facility] URINE PROTEIN TRACE MG/DL NEGATIVE Normal (applies to non-numeric r esults) [facility] URINE GLUCOSE NORMAL MG/DL NORMAL Normal (applies to non-numeric results) [facility] URINE KETONES TRACE MG/DL NEGATIVE Normal (applies to non-numeric r esults) [facility] UR UROBILINOGEN NORMAL MG/DL Normal (applies to non-numeri c results) [facility] NORMAL URINE BILIRUBIN NEGATIVE MG/DL NEGATIVE Normal (applies to non- numeric results) [facility] URINE OCCULT BLD NEGATIVE NEGATIVE Normal (applies to non-numeric results) [facility] URINE MICROSCOPIC INDICATED Abnormal (applies to non-nume ramone results) [facility] URINE C-S REQUEST see below [facility] SPECIMEN SENT TO MICROBIOLOGY ID Date Data Source [id number] 06/29/2019 02:10:35 PM EDT Posey Tonja rdes - [facility], [facility] EXAM:XR KNEE 3 VIEWS LEFT ORDERING [...] Thank you for referring your patient to [facility]. Name Value Range Interpretation Code Description Data Arianne rce(s) Supporting Document(s) ID Date Data Source [id number] 06/18/2019 08:11:00 PM EDT [facility] PROCEDURE: ABDOMEN, 2 VIEW X-RAY ORD#:[id number] DATE: 06/18/2019 19:02 ACC#: [id number]:PROCEDURE: ABDOMEN, 2 VIEW X-RAYDATE AND TIME: 06/18/2019 7:02 PM EDTHISTORY: *Pain. Constipation. Abdominal pain.COMPARISON: NoneTECHNIQUE: 3 frontal views of the abdomen.-IMPRESSION: Nonspecific, nonobstructive bowel gas pattern. No gross free air. Large amount of stool scattered within the colon and likely the rectum. Scattered air within the colon.Lung bases are clear. No abnormal calcifications. No acute osseous abnormality is identified.DWS: [id number] CUMULATIVE S RADIOLOGY FLUOROSCOPY TIME SINCE 07/30/2009: 0 sec (=0.00 min)EXAM DATE: 06/18/2019 19:02 ORDERED BY:JOSE MCKEE PACS IMAGES READ BY: KAYLA SCOTTIGNED 06/18/2019 20:09 BY KAYLA GODINEZ MD [facility] ACC#: [id number] Name Value Range Interpretation Code Description Data Arianne rce(s) Supporting Document(s) ID Date Data Source [id number] 05/26/2019 02:33:53 PM EDT Posey Tonja florez - [facility], [facility] BERKLEY LOPEZ LPATIENT IDENTIFICATION :Practice Site: [facility] Name: BERKLEY LOPEZ LMedical Record Number: [id number] Of : 2000CHIEF COMPLAINT:patient here for c/o [...] strained her back. She has been lifting [id number] whois about 15 pounds. She has been [...] 4 mg = 1 tab(s), PRN, SubLINGUAL, [id number] EXAM:VITALS:T: 37 C (Tympanic) T: 98.6 F [...] (04/27/19)COAGULATIOND-Dimer: 450 ng/mL FEU (04/27/19)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 Spec Type: AIRBORNE SENSOR SPECIALIST Swab (05/12/19)Influenza A: Negative (05/12/19)Influenza B: Negative [...] severe pain or any other severe/emergentsymptoms-go to ER/[id number].Ordered:naproxen, 500 mg = 1 tab(s), PO (oral), bid, PRN Pain, # 30 tab(s),Maintenance, Pharmacy: [id number], 1 tab(s) PO (oral) bid,PRN:PainPOC Urine Dipstick (Clinic) 2. Low grade fever UA is essentially negative and no urinary symptoms. Patient declined urineculture. No fever inclinic.Ordered:naproxen, 500 mg = 1 tab(s), PO (oral), bid, PRN Pain, # 30 tab(s),Maintenance, Pharmacy: [id number], 1 tab(s) PO (oral) bid,PRN:PainPOC Urine [...] EmergencyRoom or call 911.Thank you for choosing [facility]. We hope you are [...] othersevere/emergent symptoms-go toER/call 911. With: DINORAH DOOLEYAddress: [facility] [address] [place] [address]; This document was authenticated by Desiree Christina FNP FNP on 05/26/201902:33 PM Name Value Range Interpretation Code Description Data Arianne rce(s) Supporting Document(s) ID Date Data Source [id number] 05/16/2019 07:37:05 PM EDT Posey Tonja florez - [facility], [facility] BERKLEY LOPEZ LPATIENT IDENTIFICATION :Practice Site: [facility] Name: BERKLEY LOPEZ LMedical Record Number: [id number] Of : 2000CHIEF COMPLAINT:rm 1 c/o pain [...] 4 mg = 1 tab(s), PRN, SubLINGUAL, [id number] EXAM:VITALS:T: 36.9 C (Tympanic) T: 98.4 F [...] (04/27/19)COAGULATIOND-Dimer: 450 ng/mL FEU (04/27/19)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 Spec Type: AIRBORNE SENSOR SPECIALIST Swab (05/12/19)Influenza A: Negative (05/12/19)Influenza B: Negative [...] surgery / s/p fall over a vacuum bobbin cleaner hand cord todayxray; no acute findingsrestice 15 minutes [...] Name Value Range Interpretation Code Description Data [facility] rce(s) Supporting Document(s) ID Date Data Source [id number] 05/16/2019 06:29:06 PM EDT Posey Tonja florez - [facility] EXAM:XR KNEE 3 VIEWS LEFTORDERING PROVID [...] Thank you for referring your patient to [facility]. Name Value Range Interpretation Code Description Data [facility] rce(s) Supporting Document(s) ID Date Data Source [id number] 05/13/2019 05:32:45 PM EDT Posey Tonja florez - [facility] BERKLEY LOPEZ LHISTORY SOURCE:Patient , mother, [...] shortness of breath. [facility] and has notbeen exposed to anyone with [...] 4 mg = 1 tab(s), PRN, SubLINGUAL, [id number] ODT 4 mg oral tablet, disintegrating 4 [...] Virology LATEST RESULTS HISTORICALRESULTSInflu Spec Type 05/12/19 AIRBORNE SENSOR SPECIALIST Swab 04/20/18NP Swab 14:17 Influenza A 05/12/19 [...] of each breast. OVERALL FINAL ASSESSMENTAssessment ACR [id number] 2: Benign Findings. RECOMMENDATIONNormal screening recommended according to [place] [employer] guidelines. This document has been authenticated by Harrison Molina MD on 05/01/2019 9:10AM.Thank you for referring your patient to [facility]. Signed By: Jesse LINARES, Harrison [...] PM.Thank you for referring your patient to [facility]. Signed By: José Ma XR [...] appendix. This document has been authenticated by Kti Lerma MD on 04/03/2019 2:22 PM.Thank you [...] Thank you for referring your patient to [facility]. Signed By: WILFREDO ALBRIGHTCARDIOLOGY [...] rce(s) Supporting Document(s) ID Date Data Source [id number] 05/12/2019 02:39:15 PM EDT Posey Tonja rdes - [facility] Name Value Range Interpretation Code Description Data Arianne rce(s) Supporting Document(s) RSV Screen Negative Posey Krishna lorraine - [facility] Respiratory Syncytial Virus Screening is performed by Nucleic Acid Amplification Testing (NAAT). ID Date Data Source [id number] 05/12/2019 02:39:04 PM EDT Posey Tonja rdes - [facility] Name Value Range Interpretation Code Description Data Arianne rce(s) Supporting Document(s) Influenza A Negative Posey Tonja rdes - [facility] Rapid Influenza testing performed by Nuc leic Acid Amplification Testing (NAAT) Influenza B Negative Posey Tonja rdes - [facility] Influ Spec Type Posey Sarah - [facility] ID Date Data Source [id number] 05/12/2019 02:27:25 PM EDT Posey Tonja rdes - [facility] Name Value Range Interpretation Code Description Data Arianne rce(s) Supporting Document(s) Rapid Grp A Neg Posey Sarah - [facility] Added on by Discern Audit Strep A Neg cmt Posey Sarah - [facility] ID Date Data Source [id number] 05/12/2019 02:27:25 PM EDT Posey Tonja rdes - [facility] Name Value Range Interpretation Code Description Data Arianne rce(s) Supporting Document(s) Rapid Grp A Strep, Throat Negative Posey Sarah - [facility] Rapid Group A Streptococcus Screen is pe rformed by Enzyme Immunoassay. ID Date Data Source [id number] 05/12/2019 01:42:04 PM EDT Posey Tonja florez - [facility], [facility] EXAM:US EXTREMITY VENOUS LOWER LEFTORDER ING [...] Thank you for referring your patient to [facility]. Name Value Range Interpretation Code Description Data Arianne rce(s) Supporting Document(s) ID Date Data Source [id number] 05/01/2019 09:12:48 AM EST Posey Tonja florez - [facility], [facility] EXAM: US BREAST BILATORDERING PROVIDER:Madhavi Montero [...] appearance of each breast.OVERALL FINAL ASSESSMENTAssessment ACR [id number] 2: Benign Findings.RECOMMENDATIONNormal screening recommended according to [place] [employer] guidelines.This document has been authenticated by Harrison Molina MD on 05/01/2019 9:10AM. Thank you for referring your patient to [facility]. Name Value Range Interpretation Code Description Data Arianne rce(s) Supporting Document(s) ID Date Data Source [id number] 04/27/2019 05:09:56 PM EST Posey Tonja florez - [facility], [facility] BERKLEY LOPEZ [facility] SOURCE:Patient , previous charts reviewed, nurses notes [...] PM.Thank you for referring your patient to [facility]. Signed By: José MaCARDIOLOGY RESULTS:ECG [...] rce(s) Supporting Document(s) ID Date Data Source [id number] 04/27/2019 02:53:12 PM EST Posey Tonja florez - [facility], [facility] EXAM:XR CHEST 2 VIEWSORDERING PROVIDER:Kathy MckennaCLINICAL HISTORY:Chest pain.COMPARISON STUDY:12/02/2018.TECHNIQUE:2 views.FINDINGS:The heart is normal in size. No focal pulmonary abnormality is identified.The bones and soft tissues are unremarkable.IMPRESSION: No evidence of acute pulmonary disease.This document has been authenticated by José Ma MD on 04/27/2019 2:51PM. Thank you for referring your patient to [facility]. Name Value Range Interpretation Code Description Data Arianne rce(s) Supporting Document(s) ID Date Data Source [id number] 04/27/2019 04:17:48 PM EST Posey Tonja rdes - [facility] Name Value Range Interpretation Code Description Data Arianne rce(s) Supporting Document(s) D-Dimer 450 ng/mL FEU <=499 Posey L ourdes - [facility] * Diagnosis should not be based solely o n the results of this test.Results should be interpreted in conjunction with clinical findings.Negative Predictive Value for thromboembolism for D-Dimer test results below the cut off of 500 ng/ml FEU is 98%. ID Date Data Source [id number] 04/27/2019 02:39:21 PM EST Posey Tonja rdes - [facility] Name Value Range Interpretation Code Description Data Arianne rce(s) Supporting Document(s) Serum Qualitative Negative Posey Sarah - [facility] ID Date Data Source [id number] 04/27/2019 02:26:23 PM EST Posey Tonja rdes - [facility] Name Value Range Interpretation Code Description Data Arianne rce(s) Supporting Document(s) GFR-KIEL >60 mL/min/1.73m2 >=60 [facility] - [facility] eGFR added on by Discern Expert.* [...] [facility] - [facility] ID Date Data Source [id number] 04/27/2019 02:26:22 PM EST Posey Tonja rdes - [facility] Name Value Range Interpretation Code Description Data Arianne rce(s) Supporting Document(s) Troponin-I <0.02 ng/mL <=0.04 Posey Tonja rdes - [facility] Normal: <0.04 ng/mLIschemic disease: 0.04-0.10 ng/mLConsistent with AMI: > 0.10 ng/mLPatients taking Biotin supplements in excess of the daily recommended allowance, may have falsely elevated results due to interference of Biotin in the assay measurement. ID Date Data Source [id number] 04/27/2019 02:26:21 PM EST Posey Tonja rdes - [facility] Name Value Range Interpretation Code Description Data Arianne rce(s) Supporting Document(s) Sodium Level 140 mmol/L 136-144 Posey Lo urdes - [facility] Potassium Level 3.9 mmol/L 3.6-5.1 Posey Sarah - [facility] Chloride 111 mmol/L 98-110 Above high normal [facility] CO2 20 mmol/L 22-32 Below low normal [facility] - [facility] AGAP 9 mEq/L 4-14 Posey Lour lorraine - [facility] Glucose Level. 114 mg/dL 65-100 Above high normal [facility] Sarah - [facility] If patient is taking either of these dominguez gs, there has been a bias identified:Sulfasalazine may cause falsely decreased resultsSulfaspyridine may cause falsely increased results BUN 11 mg/dL 8-23 Posey Lour lorraine - [facility], [facility] Creatinine 0.67 mg/dL 0.40-1.10 Posey Lour lorraine - [facility] Calcium 9.2 mg/dL 8.5-10.5 Posey Lour lorraine - [facility] Total Protein 7.6 gm/dL 6.4-8.2 Posey L ourdes - [facility], [facility] Globulin 3.6 gm/dL 1.5-3.8 Posey Lour lorraine - [facility] Albumin Level 4.0 gm/dL 3.3-4.8 Posey L ourdes - [facility] Bilirubin Total. 0.1 mg/dL 0.2-1.0 Below low normal [facility] Sarah - [facility] AST 12 unit/L 15-41 Below low normal [facility] - [facility] If patient is taking either of these dominguez gs, there has been a bias identified:Sulfasalazine may cause falsely decreased resultsSulfaspyridine may cause falsely decreased results Alk Phos 88 unit/L 45-117 Posey Lour lorraine - [facility] ALT 28 unit/L 14-54 Posey Lour lorraine - [facility] If patient is taking either of these dominguez gs, there has been a bias identified:Sulfasalazine may cause falsely decreased resultsSulfaspyridine may cause falsely decreased results ID Date Data Source [id number] 04/27/2019 02:07:48 PM EST Posey Tonja rdes - [facility] Name Value Range Interpretation Code Description Data Arianne rce(s) Supporting Document(s) WBC 8.3 K/uL 4.0-10.0 Posey Lour lorraine - [facility] RBC 4.80 Million/mcL 4.20-5.40 [facility] - [facility] Hgb 13.3 gm/dL 12.0-16.0 Posey Lour lorraine - [facility] Hct 39.7 % 36.0-47.0 Posey Lour lorraine - [facility] MCV 82.7 fL 82.0-98.0 Posey Lour lorraine - [facility] MCH 27.8 pg 26.0-33.0 Posey Lour lorraine - [facility] MCHC 33.6 gm/dL 32.0-36.0 Posey Lour lorraine - [facility] RDW 13.8 % 11.4-14.4 Posey Lour lorraine - [facility] Platelet 314 K/mcL 150-400 Posey Lour lorraine - [facility] MPV 8.9 fL 7.4-10.4 Posey Lour lorraine - [facility] ID Date Data Source [id number] 04/27/2019 02:07:48 PM EST Posey Tonja rdes - [facility] Name Value Range Interpretation Code Description Data Arianne rce(s) Supporting Document(s) Neutrophils, auto 54.2 % 40.0-80.0 [facility] - [facility] Neutrophils, absolute 4.5 K/mcL 1.5-7.7 Asc ension Sarah - [facility] Lymphocytes, auto 35.8 % 15.0-40.0 [facility] - [facility] Lymphocytes, absolute 3.0 K/mcL 1.5-4.0 Asc ension Sarah - [facility] Monocytes, auto 7.1 % 0.0-12.0 Posey Sarah - [facility] Monocytes, absolute 0.6 K/mcL 0.2-1.0 Ascen darren Sarah - [facility] Eosinophils, auto 1.9 % 0.0-5.0 [facility] - [facility] Eosinophils, absolute 0.2 K/mcL 0.0-0.3 Asc [facility] Sarah - [facility] Basophils, auto 1.0 % 0.0-2.0 Posey Sarah - [facility] Basophils, absolute 0.1 K/mcL 0.0-0.1 Ascen darren Sarah - [facility] ID Date Data Source [id number] 04/24/2019 10:34:40 AM EST Posey Tonja rdes - [facility] EXAM:XR KNEE 1 OR 2 VIEWS [...] Thank you for referring your patient to [facility]. Name Value Range Interpretation Code Description Data Arianne rce(s) Supporting Document(s) ID Date Data Source [id number] 04/10/2019 03:08:28 PM EST Posey Tonja florez - [facility] BERKLEY LOPEZ [facility] is a pleasant pat ient of [...] prepped with chlorhexidine 1%. Using ultrasound assistance, [id number] Tuohy epiduralneedle was inserted towards the adductor [...] rce(s) Supporting Document(s) ID Date Data Source [id number] 04/10/2019 03:02:28 PM EST Posey Tonja florez - [facility] LREPORT OF OPERATION DA TE OF PROCEDURE: [...] limb was e xsanguinated with Esmarch andtourniquet [id number] mmHg. I then began with a standard [...] DRAINS/PACKS:none This operative report was dictated using [employer] software. Every attempt tocorrect verbalinaccuracies have been made.This document was authenticated by Salma Alvarado MD MD on04/10/2019 03:02 PM Name Value Range Interpretation Code Description Data Arianne rce(s) Supporting Document(s) ID Date Data Source [id number] 04/10/2019 02:41:43 PM EST Posey Tonja florez - [facility] EXAM:XR KNEE 1 OR 2 VIEWS LEFTBENIGNO VALDIVIA:MD Salma Alvarado MDCLINICAL HISTORY:Intraoperative fluoroscopy.COMPARISON STUDY:None.TECHNIQUE:4 images. 58 seconds of fluoroscopy.FINDINGS: Fluoroscopic documentation of procedure without radiologist present. Pleasesee the operative report.IMPRESSION: Intraoperative fluoroscopy This document has been authenticated by José Ma MD on 04/10/2019 2:39PM. Thank you for referring your patient to [facility]. Name Value Range Interpretation Code Description Data Arianne rce(s) Supporting Document(s) ID Date Data Source [id number] 04/10/2019 08:12:36 PM EST Posey Tonja rdes - [facility] Name Value Range Interpretation Code Description Data Arianne rce(s) Supporting Document(s) Finger Stick Blood Sugar 95 mg/dL 65-100 Posey Sarah - [facility] The POC Glucose meter technical range is 30 - 550 mg/dLA glucose less than 30 mg/dLwill chart as CORBY glucose greater than 550 mg/dL will display as HI ID Date Data Source [id number] 04/03/2019 04:39:33 PM EST Posey Tonja rdes - [facility] BERKLEY LOPEZ LHISTORY SOURCE:Patient and nurse's notes reviewedCHIEF COMPLAINT:Pt reports left lower abdominal pain, vomiting blood tinged fluids, and unableto urinate [id number] last night. Pt reports hx of urinary [...] 04/03/19 Clear 11/28/18Cloudy Abnormal 14:01 UA Specific [place] 04/03/19 1.027 High .029 High 14:01 UA [...] PM.Thank you for referring your patient to [facility]. Signed By: Florentin LINARES, Abdi [...] rce(s) Supporting Document(s) ID Date Data Source [id number] 04/03/2019 02:24:26 PM EST Posey Tonja florez - [facility] EXAM:Noncontrast CT of the abdomen and [...] Thank you for referring your patient to [facility]. Name Value Range Interpretation Code Description Data Arianne rce(s) Supporting Document(s) ID Date Data Source [id number] 04/05/2019 09:25:49 AM EST Posey Tonja florez - [facility] Name BERKLEY LOPEZ hdate 2000Sex FEMALE Age 18 yearsPatient Acct. No. [id number] ER OLLAttending ER Physician Fabrice LINARES, [facility] Care Physician DINORAH DOOLEYMicrobiologyS = Susceptible [...] Predominating PathogenPerforming Locationsf1: This test was performed at:[facility], [address] [place] [address], [facility]- Name Value Range Interpretation Code Description Data Arianne rce(s) Supporting Document(s) ID Date Data Source [id number] 04/03/2019 02:14:00 PM EST P[facility]y Tonja rdes - [facility] Name Value Range Interpretation Code Description Data Arianne rce(s) Supporting Document(s) UA Squamous Epithelial Cells <2 /HPF 0-5 Posey Sarah - [facility] Added as per Lab reflex policy GL_UA_MIC RO_AV_R_UC UA WBC w/UC 2 /HPF 0-5 Posey Tonja rdes - [facility] UA RBC <2 /HPF 0-2 Posey Lour lorraine - [facility] UA Mucous Absent Posey Lour lorraine - [facility] ID Date Data Source [id number] 04/03/2019 02:07:51 PM EST P[facility]y Tonja rdes - [facility] Name Value Range Interpretation Code Description Data Arianne rce(s) Supporting Document(s) UA Color Yellow Posey Lour lorraine - [facility] UA Clarity Clear Posey Lour lorraine - [facility] UA pH 5.0 5.0-8.0 Posey Lour lorraine - [facility] UA Specific [place] 1.027 1.005-1.025 Above high normal Posey Sarah - [facility] UA Leuk w/uc Negative AB Posey Lo urdes - [facility] UA Nitrite w/UC Negative Posey Sarah - [facility] UA Blood w/UC Negative Posey L ourdes - [facility] UA Bilirubin Negative Posey Lo urdes - [facility] If the dipstick bilirubin results are 'P resumptive Positive' the result will be confirmed with an Ictotest due to possible interference. UA Urobilinogen Normal Posey Sarah - [facility] UA Glucose Normal Posey Lour lorraine - [facility] UA Ketones Negative Posey Lour lorraine - [facility] UA Protein w/UC Negative Posey Sarah - [facility] UA Ascorbic Acid Negative [facility] Sarah - [facility] The presence of ascorbic acid may interf ere with the detection of blood, glucose, nitrite and bilirubin on the biochemical strip. Detectable limits of >20mg/dL will reflex a microscopic exam. ID Date Data Source [id number] 04/03/2019 01:48:27 PM EST Posey Tonja rdes - [facility] BERKLEY LOPEZ LChief Complaint: Patie nt [...] document was authenticated by Jennifer Dukes FNP SIGN ARTIST on 04/03/201912:29 PMSent for Co-authentication by Nilton Willson DO DO Co-authenticatedon 04/03/2019 01:48 PM Name Value Range Interpretation Code Description Data Arianne rce(s) Supporting Document(s) ID Date Data Source [id number] 04/03/2019 03:16:39 PM EST Posey Tonja rdes - [facility] Name Value Range Interpretation Code Description Data Arianne rce(s) Supporting Document(s) Lipase Level 103 unit/L 73-393 Posey Lo urdes - [facility] ID Date Data Source [id number] 04/03/2019 03:16:41 PM EST Posey Tonja rdes - [facility] Name Value Range Interpretation Code Description Data Arianne rce(s) Supporting Document(s) GFR-KIEL >60 mL/min/1.73m2 >=60 [facility] - [facility] eGFR added on by Discern Expert.* [...] [facility] - [facility] ID Date Data Source [id number] 04/03/2019 03:16:39 PM EST Posey Tonja rdes - [facility] Name Value Range Interpretation Code Description Data Arianne rce(s) Supporting Document(s) C-Reactive Protein. 1.0 mg/dL <=1.0 Ascen darren Sarah - [facility] ID Date Data Source [id number] 04/03/2019 03:16:39 PM EST Posey Tonja rdes - [facility] Name Value Range Interpretation Code Description Data Arianne rce(s) Supporting Document(s) Sodium Level 140 mmol/L 136-144 Posey Lo urdes - [facility] Potassium Level 3.7 mmol/L 3.6-5.1 Posey Sarah - [facility] Chloride 112 mmol/L 98-110 Above high normal [facility] - [facility] CO2 21 mmol/L 22-32 Below low normal [facility] Sarah - [facility] AGAP 7 mEq/L 4-14 Posey Lour lorraine - [facility] Glucose Level. 148 mg/dL 65-100 Above high normal Asc ension Sarah - [facility] If patient is taking either of these dominguez gs, there has been a bias identified:Sulfasalazine may cause falsely decreased resultsSulfaspyridine may cause falsely increased results BUN 13 mg/dL 8-23 Posey Lour lorraine - [facility] Creatinine 0.67 mg/dL 0.40-1.10 Posey Lour lorraine - [facility] Calcium 9.4 mg/dL 8.5-10.5 Posey Lour lorraine - [facility] Total Protein 7.6 gm/dL 6.4-8.2 Posey L ourdes - [facility] Globulin 3.6 gm/dL 1.5-3.8 Posey Lour lorraine - [facility] Albumin Level 4.0 gm/dL 3.3-4.8 Posey L ourdes - [facility] Bilirubin Total. 0.3 mg/dL 0.2-1.0 [facility] - [facility] AST 13 unit/L 15-41 Below low normal [facility] Sarah - [facility] If patient is taking either of these dominguez gs, there has been a bias identified:Sulfasalazine may cause falsely decreased resultsSulfaspyridine may cause falsely decreased results Alk Phos 89 unit/L 45-117 Posey Lozenon lorraine - [facility] ALT 32 unit/L 14-54 Posey Lour lorraine - [facility] If patient is taking either of these dominguez gs, there has been a bias identified:Sulfasalazine may cause falsely decreased resultsSulfaspyridine may cause falsely decreased results ID Date Data Source [id number] 04/03/2019 01:23:25 PM EST Posey Tonja rdes - [facility] Name Value Range Interpretation Code Description Data Arianne rce(s) Supporting Document(s) Serum Qualitative Negative Posey Sarah - [facility] ID Date Data Source [id number] 04/03/2019 01:03:11 PM EST Posey Tonja rdes - [facility] Name Value Range Interpretation Code Description Data Arianne rce(s) Supporting Document(s) WBC 8.1 K/uL 4.0-10.0 Posey Lour lorraine - [facility] RBC 4.84 Million/mcL 4.20-5.40 [facility] - [facility] Hgb 13.3 gm/dL 12.0-16.0 Posey Lour lorraine - [facility] Hct 40.0 % 36.0-47.0 Posey Lour lorraine - [facility] MCV 82.7 fL 82.0-98.0 Posey Lour lorraine - [facility] MCH 27.4 pg 26.0-33.0 Posey Lour lorraine - [facility] MCHC 33.1 gm/dL 32.0-36.0 Posey Lour lorraine - [facility] RDW 14.1 % 11.4-14.4 Posey Lour lorraine - [facility] Platelet 302 K/mcL 150-400 Posey Lour lorraine - [facility] MPV 9.2 fL 7.4-10.4 Posey Lour lorraine - [facility] ID Date Data Source [id number] 04/03/2019 01:03:11 PM EST Posey Tonja rdes - [facility] Name Value Range Interpretation Code Description Data Arianne rce(s) Supporting Document(s) Neutrophils, auto 58.3 % 40.0-80.0 [facility] - [facility] Neutrophils, absolute 4.7 K/mcL 1.5-7.7 Asc ension Sarah - [facility] Lymphocytes, auto 34.4 % 15.0-40.0 [facility] - [facility] Lymphocytes, absolute 2.8 K/mcL 1.5-4.0 Asc ension Sarah - [facility] Monocytes, auto 5.3 % 0.0-12.0 Posey Sarah - [facility] Monocytes, absolute 0.4 K/mcL 0.2-1.0 Ascen darren Sarah - [facility] Eosinophils, auto 1.3 % 0.0-5.0 [facility] - [facility] Eosinophils, absolute 0.1 K/mcL 0.0-0.3 Asc ension Sarah - [facility] Basophils, auto 0.7 % 0.0-2.0 Posey Sarah - [facility] Basophils, absolute 0.1 K/mcL 0.0-0.1 Ascen darren Sarah - [facility] ID Date Data Source [id number] 03/30/2019 04:42:08 PM EST Posey Tonja rdes - [facility] BERKLEY LOPEZ LPATIENT IDENTIFICATION :[facility] BERKLEY LOPEZ LMedical Record Number: [id number] Of : 2000CHIEF COMPLAINT:rm 6 has been [...] (03/26/19)Protein Urine Dipstick POC Clinic: Negative (03/26/19)Specific [place] Dipstick POC Clinic: 1.030 (03/26/19)Urobilinogen Urine Dipstick [...] good understanding. *This note was completed using [employer] System. Reasonable attemptshave been made tocorrect errors. Please excuse any typographical errors. For clarifications,please contact ouroffice. Ordered:nitrofurantoin, 100 mg = 1 cap(s), PO (oral), bid, # 10 cap(s), Maintenance,Pharmacy: [facility]/pharmacy #[id number], 1 cap(s) PO (oral) bid,x5 da [...] in clinic. This document was authenticated by Sandra Bowers FNP FNP on 0 03/30/201904:42 PM Name Value Range Interpretation Code Description Data Arianne rce(s) Supporting Document(s) ID Date Data Source [id number] 03/28/2019 07:35:16 AM EST Posey Tonja florez - [facility] Name BERKLEY LOPEZ hdate 2000Sex FEMALE Age 18 yearsPatient Acct. No. [id number] LCB OLLAttending ER Physician Sandra Bowers FNPPriencompass health [facility] Care Physician DINORAH DOOLEYMicrobiologyS = Susceptible I = Intermediate R = Resistant N/A = Not U = UninterpretableApplicableProcedure: Culture Urine [f1] U CleanCatch Body Site:Collected Date/Time: 03/26/2019 18:47 EST Received Date/Time: 03/26/2019 18:47 ESTStart Date/Time: 03/26/2019 18:48 EST Free Text Source:Ordering Physician: Sandra Bowers FNPFINAL REPORTSFinal Report [] Verified Date/Time: 03/28/2019 07:35 EST10,000 to 50,000 cfu/ml Multiple Species Present, No Predominating PathogenPerforming Locationsf1: This test was performed at:[facility], [address] [place] [address], [facility]- Name Value Range Interpretation Code Description Data Arianne rce(s) Supporting Document(s) ID Date Data Source [id number] 02/18/2019 05:02:53 PM EST Posey Tonja florez - [facility], [facility] SOURCE:History is from patient I reviewed [...] well-nourished woman who appears her stated age. Geogrn-ua-fmxzzauqsvyrtian.HEAD: Normocephalic/atraumatic.EYES: Pupils equal round reactive to light [...] CHEMISTRY LATEST RESULTS HISTORICALRESULTSSodium Level 02/18/19 140 10/04/13939 10:13 Potassium Level 02/18/19 3.6 194.0 10:13 [...] Signature Line Final Dictated: 02/18/2019 11:05 am WILFREOD ALBRIGHT Signed (Electronic Signature): 02/18/2019 11:06 am [...] rce(s) Supporting Document(s) ID Date Data Source [id number] 02/18/2019 12:31:16 PM EST Posey Tonja florez - [facility], [facility] EXAM:CT ABD/PELVIS W/IV ONLY CONTRAST OR [...] Thank you for referring your patient to [facility] DiagnosticImaging. Name Value Range Interpretation Code Description Data Arianne rce(s) Supporting Document(s) ID Date Data Source [id number] 02/18/2019 11:09:02 AM EST Posey Tonja rddallin - [facility] EXAM: US PELVIS TRANSVAGINAL ONLY ORDERI [...] rce(s) Supporting Document(s) ID Date Data Source [id number] 02/18/2019 10:47:32 AM EST Posey Tonja rddallin - [facility] Name Value Range Interpretation Code Description Data Arianne rce(s) Supporting Document(s) APTT 27 second(s) 24-33 Posey Christen urlorraine - [facility] Suggested therapeutic range for unfracti onated Heparin is 2 to 2.5 times the mean normal value. Levels below 60 seconds may indicate insufficient anticoagulant.For therapeutic monitoring of various direct thrombin inhibitors, please refer to Micromedex or LexiComp on the [facility] Intranet. ID Date Data Source [id number] 02/18/2019 11:07:49 AM EST Posey Tonja rdes - [facility] Name Value Range Interpretation Code Description Data Arianne rce(s) Supporting Document(s) Serum Qualitative Negative Posey Sarah - [facility] ID Date Data Source [id number] 02/18/2019 10:46:47 AM EST Posey Tonja rdes - [facility] Name Value Range Interpretation Code Description Data Arianne rce(s) Supporting Document(s) Lipase Level 96 unit/L 73-393 Posey Christen holliday - [facility] ID Date Data Source [id number] 02/18/2019 10:46:47 AM EST Posey Tonja rdes - [facility] Name Value Range Interpretation Code Description Data Arianne rce(s) Supporting Document(s) C-Reactive Protein. 3.3 mg/dL <=1.0 Above high normal Posey [facility] - [facility] ID Date Data Source [id number] 02/18/2019 10:46:48 AM EST Posey Tonja rdes - [facility] Name Value Range Interpretation Code Description Data Arianne rce(s) Supporting Document(s) GFR-KIEL >60 mL/min/1.73m2 >=60 [facility] - [facility] eGFR added on by Discern Expert.* [...] [facility] Sarah - [facility] ID Date Data Source [id number] 02/18/2019 10:46:46 AM EST Posey Tonja rdes - [facility] Name Value Range Interpretation Code Description Data Arianne rce(s) Supporting Document(s) Sodium Level 140 mmol/L 136-144 Posey Lo urlorraine - [facility], [facility] Potassium Level 3.6 mmol/L 3.6-5.1 Posey Sarah - [facility] Chloride 112 mmol/L 98-110 Above high normal [facility] - [facility] CO2 24 mmol/L 22-32 Posey Lozenon lorraine - [facility] AGAP 4 mEq/L 4-14 Posey Lozenon peters - [facility] Glucose Level. 91 mg/dL 65-100 Posey Sarah - [facility] If patient is taking either of these dominguez gs, there has been a bias identified:Sulfasalazine may cause falsely decreased resultsSulfaspyridine may cause falsely increased results BUN 15 mg/dL 8-23 Posey Lozenon lorraine - [facility] Creatinine 0.80 mg/dL 0.40-1.10 Posey Lour lorraine - [facility] Calcium 8.9 mg/dL 8.5-10.5 Posey Lour lorraine - [facility] Total Protein 7.1 gm/dL 6.4-8.2 Posey L laurides - [facility], [facility] Globulin 3.5 gm/dL 1.5-3.8 Posey Lozenon peters - [facility], [facility] Albumin Level 3.6 gm/dL 3.3-4.8 Posey L ourdes - [facility] Bilirubin Total. 0.4 mg/dL 0.2-1.0 [facility] - [facility] AST 11 unit/L 15-41 Below low normal [facility] Sarah - [facility] If patient is taking either of these dominguez gs, there has been a bias identified:Sulfasalazine may cause falsely decreased resultsSulfaspyridine may cause falsely decreased results Alk Phos 93 unit/L 45-117 Posey Lour lorraine - [facility] ALT 47 unit/L 14-54 Posey Lour lorraine - [facility] If patient is taking either of these dominguez gs, there has been a bias identified:Sulfasalazine may cause falsely decreased resultsSulfaspyridine may cause falsely decreased results ID Date Data Source [id number] 02/18/2019 10:46:46 AM EST Posey Tonja rdes - [facility] Name Value Range Interpretation Code Description Data Arianne rce(s) Supporting Document(s) Amylase Level 28 unit/L 28-100 Posey L zee - [facility] ID Date Data Source [id number] 02/18/2019 10:17:55 AM EST Posey Tonja rdes - [facility] Name Value Range Interpretation Code Description Data Arianne rce(s) Supporting Document(s) WBC 6.6 K/uL 4.0-10.0 Posey Lour lorraine - [facility] RBC 4.50 Million/mcL 4.20-5.40 [facility] - [facility] Hgb 12.4 gm/dL 12.0-16.0 Posey Lour lorraine - [facility] Hct 37.2 % 36.0-47.0 Posey Lour lorraine - [facility] MCV 82.6 fL 82.0-98.0 Posey Lour lorraine - [facility] MCH 27.5 pg 26.0-33.0 Posey Lour lorraine - [facility] MCHC 33.3 gm/dL 32.0-36.0 Posey Lour lorraine - [facility] RDW 13.7 % 11.4-14.4 Posey Lour lorraine - [facility] Platelet 272 K/mcL 150-400 Posey Lour lorraine - [facility] MPV 8.3 fL 7.4-10.4 Posey Lour lorraine - [facility] ID Date Data Source [id number] 02/18/2019 10:17:54 AM EST Posey Tonja rdes - [facility] Name Value Range Interpretation Code Description Data Arianne rce(s) Supporting Document(s) Neutrophils, auto 63.8 % 40.0-80.0 [facility] - [facility] Neutrophils, absolute 4.2 K/mcL 1.5-7.7 Asc ension Sarah - [facility] Lymphocytes, auto 23.6 % 15.0-40.0 [facility] - [facility] Lymphocytes, absolute 1.6 K/mcL 1.5-4.0 Asc ension Sarah - [facility] Monocytes, auto 10.9 % 0.0-12.0 Posey Sarah - [facility] Monocytes, absolute 0.7 K/mcL 0.2-1.0 Ascen darren Sarah - [facility] Eosinophils, auto 0.9 % 0.0-5.0 [facility] - [facility] Eosinophils, absolute 0.1 K/mcL 0.0-0.3 Asc ension Sarah - [facility] Basophils, auto 0.8 % 0.0-2.0 Posey Sarah - [facility] Basophils, absolute 0.1 K/mcL 0.0-0.1 Ascen darren Sarah - [facility] Procedure Social History Code Duration Value Status Description Data Source(s ) Alcohol intake 12/20/2019 12:00:00 AM EDT Current non-d chana of alcohol (finding) completed Current non-drinker of alcohol (finding) [facility] Tobacco use and exposure 12/20/2019 12:00:00 AM EDT Never used co mpleted Never used [facility] Smoking 12/20/2019 12:00:00 AM EDT Never smoker completed Never s moker [facility] 06/29/2019 12:00:00 AM EDT Patient is a current smoker, smokes every day completed Patient is a current smoker, smokes every day [facility]) ASSERTION 05/08/2019 12:00:00 AM EDT soda and coffee completed soda and coffee [facility] Vital Signs ID Date Data Source UNK Name Value Range Interpretation Code Description Data Source(s) Body weight Measured 240 lb 14 oz 240 lb 14 oz Posey Sarah - [facility] 2Result Comment: Result placed secondary from kg, converted to lbs Body height 66.0 [in_i] 66.0 [in_i] Posey Jessica koch - [facility] 1Result Comment: Result placed secondary from cm, converted to Inches Deprecated Oxygen saturation in Capillary blood by Oximetry 98 % 90-100 Normal (applies to non-numeric results) 98 % Posey Sarah - [facility] Heart rate 100 /min 60-100 Normal (applies to non-numeric resul ts) 100 /min Posey Sarah - [facility] Systolic blood pressure 90-140 Normal (applies t o non-numeric results) mm[Hg] Posey Sarah - [facility] Body temperature 98.6 [degF] 97.9-99.7 Normal (applies to non-n umeric results) 98.6 [degF] Posey Sarah - [facility] Deprecated Oxygen saturation in Capillary blood by Oximetry 97 % 90-100 Normal (applies to non-numeric results) 97 % Posey Sarah - [facility] Respiratory rate 20 /min 14-20 Normal (applies to non-numeric results) 20 /min Posey Sarah - [facility] Heart rate 104 /min 60-100 Above high normal 104 /min [facility] - [facility] Systolic blood pressure 90-140 Normal (applies t o non-numeric results) mm[Hg] Posey Sarah - [facility] Body temperature 98.4 [degF] 97.9-99.7 Normal (applies to non-n umeric results) 98.4 [degF] Posey Sarah - [facility] Body weight Measured 244 lb 8 oz 244 lb 8 oz As cension Sarah - [facility] 2Result Comment: Result placed secondary from kg, converted to lbs Body height 66.0 [in_i] 66.0 [in_i] Posey L zee - [facility] 1Result Comment: Result placed secondary from cm, converted to Inches Deprecated Oxygen saturation in Capillary blood by Oximetry 97 % 90-100 Normal (applies to non-numeric results) 97 % Posey Sarah - [facility] Respiratory rate 20 /min 14-20 Normal (applies to non-numeric results) 20 /min Posey Sarah - [facility] Heart rate 104 /min 60-100 Above high normal 104 /min [facility] - [facility] Systolic blood pressure 90-140 Normal (applies t o non-numeric results) mm[Hg] Posey Sarah - [facility] Body temperature 98.4 [degF] 97.9-99.7 Normal (applies to non-n umeric results) 98.4 [degF] Posey Sarah - [facility] Body weight Measured 244 lb 8 oz 244 lb 8 oz As cension Sarah - [facility] 2Result Comment: Result placed secondary from kg, converted to lbs Body height 66.0 [in_i] 66.0 [in_i] Posey L zee - [facility] 1Result Comment: Result placed secondary from cm, converted to Inches Body mass index (BMI) [Ratio] 38.96 kg/meter(2) Overweight 38.96 kg/meter(2) [facility] Health Respiratory rate 18 /min 18 /min [facility] Body temperature 97.90 [degF] 97.90 [degF] Unit [facility] Heart rate 94 /min 94 /min [facility] Diastolic blood pressure 84 mm[Hg] 84 mm[Hg] [facility] Systolic blood pressure 138 mm[Hg] 138 mm[Hg] U [facility] Body weight Measured 241.41 [lb_av] 241.41 [lb_ av] [facility] Body height 66.00 [in_us] 66.00 [in_us] [facility] Body weight Measured 241 lb 7 oz 241 lb 7 oz As cension Sarah - [facility] 2Result Comment: Result placed secondary from kg, converted to lbs Body height 66.0 [in_i] 66.0 [in_i] Posey L zee - [facility] 1Result Comment: Result placed secondary from cm, converted to Inches Deprecated Oxygen saturation in Capillary blood by Oximetry 98 % 90-100 Normal (applies to non-numeric results) 98 % Posey Sarah - [facility] Respiratory rate 20 /min 14-20 Normal (applies to non-numeric results) 20 /min Posey Sarah - [facility] Heart rate 97 /min 60-100 Normal (applies to non-numeric resul ts) 97 /min Posey Sarah - [facility] Systolic blood pressure 90-140 Normal (applies t o non-numeric results) mm[Hg] Posey Sarah - [facility] Body temperature 98.1 [degF] 97.9-99.7 Normal (applies to non-n umeric results) 98.1 [degF] Posey Sarah - [facility] Body weight Measured 241 lb 7 oz 241 lb 7 oz As cension Sarah - [facility] 2Result Comment: Result placed secondary from kg, converted to lbs Body height 66.0 [in_i] 66.0 [in_i] Posey L zee - [facility] 1Result Comment: Result placed secondary from cm, converted to Inches Deprecated Oxygen saturation in Capillary blood by Oximetry 98 % 90-100 Normal (applies to non-numeric results) 98 % Posey Sarah - [facility] Respiratory rate 20 /min 14-20 Normal (applies to non-numeric results) 20 /min Posey Sarah - [facility] Heart rate 97 /min 60-100 Normal (applies to non-numeric resul ts) 97 /min Posey Sarah - [facility] Systolic blood pressure 90-140 Normal (applies t o non-numeric results) mm[Hg] Posey Sarah - [facility] Body temperature 98.1 [degF] 97.9-99.7 Normal (applies to non-n umeric results) 98.1 [degF] Posey Sarah - [facility] Patient Treatment Plan of Care Planned Activity Planned Date Details Description Data Source (s) Flonase Allergy Relief 50 mcg/actuation nasal spray,dickinson spension 06/08/2016 12:00:[address] [facility] Previfem 0.25 mg-[address] [facility] Lactobacillus rhamnosus GG [id number] UNT Oral Capsule [facility] trazodone 50 mg tablet Unite [facility] Hyoscyamine Sulfate 0.125 MG/ML Oral Solution [facility] Briellyn 0.4 mg-[address] [facility] Clonazepam [address] [facility] methylphenidate ER 50 mg multiphase capsule 30-70,extended release [facility] Metformin hydrochloride [address] [facility]
--- OUTSIDE RECORDS SUMMARY | 2020-03-14 23:28 | CCD ---
Author Author [facility] Organization [facility] Address Unknown Phone Unavailable Care Team Providers Care Oriental Rug Repairer Name Role Phone Kathy Bowers Unavailable Unavailable [...] LINARES, Physician Maryann Gee Unavailable Unavailable Theron ODBSON Unavailable Unavailable Tere Mckenna MD Unavailable Unavailable [...] JIGNESH ELLIS MD Unavailable Unavailable Sanford, Desiree STORE CONSULTANT Unavailable Unavailable Sanford, Desiree STORE CONSULTANT Unavailable Unavailable Sanford, Desiree STORE CONSULTANT Unavailable Unavailable Sanford, Desiree STORE CONSULTANT Unavailable Unavailable Sanford, Desiree STORE CONSULTANT Unavailable Unavailable NON, PHYSICIAN STAFF Unavailable Unavailable [...] Unavailable Juarez, W Best Unavailable Unavailable [id number], [id number] Unavailable MEDENT_[id number], [id number] Unavailable MEDENT_[id number], [id number] Unavailable MEDENT_[id number], [id number] Unavailable MEDENT_[id number], [id number] Unavailable MEDENT_[id number], [id number] Unavailable MEDENT_[id number], [id number] Unavailable MEDENT_[id number], [id number] Unavailable MEDENT_[id number], [id number] Unavailable Theron Fuller MD Unavailable Unavailable Theron [...] is protected by Article 27-F of the [facility] Public Health law. If you continue you may have access to information: Regarding HIV / AIDS; Provided by facilities licensed or operated by the [facility] Office of Mental Health; or Provided by the [facility] Office for People With Developmental Disabilities. If such information is present, then the following [facility] mandated warning applies: This information has [...] law may result in a fine or alf sentence or both. A general authorization for the release of medical or other information is NOT sufficient authorization for further disc losure. Family History Family Member Name Family Member Gender Family Member Status Date o f Status Description Data Source(s) Unknown Male Diagnosis 11/07/2014 12:00:00 AM EDT [facility] Encounters Encounter Providers Location Date Indications Data Source(s ) Outpatient Attender: CAM PRINCE MD 02/21/2020 12:00: 00 AM [facility] Outpatient Attender: CAM PRINCE MD [id number] 12:00:00 AM EDT - 12/20/2019 03:38:04 PM [facility] Attender: RONDA GARCIAConsultant: STAFF NON 11/07/2019 11:33:00 PM EDT - 11/08/2019 01:19:00 AM EDT [facility] Patient discharged. Outpatient 07/20/2019 06:39:00 PM EDT [facility] Outpatient Attender: REBEKAH CHAUHAN MD MDAdmitt er: REBEKAH CHAUHAN MD, MD [facility] 07/18/2019 10:30:00 AM EDT TELEPHONE discuss surgery [facility] TELEPHONE discuss surgery [facility] [place] ENT/Facial Plastic Surgery 0 07/18/2019 10:30:00 AM EDT - 07/18/2019 10:30:00 AM EDT Proc/trtmt not carried out because of contraindication [facility] Proc/trtmt not carried out because of co ntraindication P Attender: SALMA CARRASCOdmitter: SALMA AGUILAR-MATTHIAS 07/11/2019 10:42:00 AM EDT [facility] - [facility], [facility] P Attender: LISA DOBSONAdmitter: LISA RIZZO-MATTHIAS 2019 03:14:00 PM EDT [facility] - [facility], [facility] Outpatient Attender: LISA DOBSONAdmitter: LISA RIZZO-MATHTIAS 06/29/2019 01:18:00 PM EDT - 06/29/2019 01:18:00 PM EDT [facility] - [facility] Patient discharged. Outpatient Attender: Wali Temple MDAdmitter: Wali casanova MD [facility] 06/18/2019 06:16:00 PM EDT - 06/18/2019 08:15:00 PM EDT [facility] Patient discharged. Outpatient Attender: SALMA CARRASCOdmitter: SALMA ALVARADO OUT-OUT 05/31/2019 12:01:00 AM EDT - 06/29/2019 11:59:00 PM EDT [facility] - [facility] Patient discharged. P Attender: SALMA CARRASCOdmitter: SALMA ALVARADO MATTHIAS-MATTHIAS 05/30/2019 08:44:00 AM EDT [facility] - [facility] Outpatient Attender: SALMA CARRASCOdmitter: SALMA ALVARADO MATTHIAS-MATTHIAS 05/30/2019 08:29:00 AM EDT - 05/30/2019 08:29:00 AM EDT [facility] - [facility] Patient discharged. P Attender: Desiree CHERRY PAttender: PROVIDER TESTAdmitter: Desiree HERNANDEZ LCB-LCB 05/26/2019 01:33:00 PM EDT [facility] darren Sarah - [facility] Outpatient Attender: HALEY ZAYASAdmitter: HALEY ARELLANOB-LCB 05/16/2019 05:58:00 PM EDT - 05/16/2019 05:58:00 PM EDT [facility] - [facility] Patient discharged. Outpatient Attender: HALEY FRIEDMAN ttender: PROVIDER TESTAdmitter: HALEY ARELLANOB-LCB 05/16/2019 05:23:00 PM EDT - 05/16/2019 05:58:00 PM EDT [facility] - [facility] Emergency Attender: Nilton moura DOAdmitter: Nilton ABRAMSeferrer: Dinorah Dooley MD M/S-M/S 05/12/2019 02:05:00 PM EDT - 05/12/2019 03:05:00 PM EDT [facility] - [facility] Patient discharged. Emergency Attender: Nilton moura DOAdmitter: Nilton Willson DOReferrer: Dinorah Dooley MD ANC-ER 05/12/2019 02:05:00 PM EDT [facility] - [facility] Outpatient Attender: TAHIRA BELLA PAAdmitter: TAHIRA BELLA PA MATTHIAS-MATTHIAS 05/12/2019 12:53:00 PM EDT - 05/12/2019 12:53:00 PM EDT [facility] - [facility] Patient discharged. Outpatient Attender: Best Verma r: [facility] [place] [facility] Provider Pending MDAdmitter: Best CASTRO 05/08/2019 11:02:00 AM EDT [facility] OutpatientOffice/outpatient visit,est, mod [facility] 05/08/2019 11:02:00 AM EDT - 05/08/2019 11:02:00 AM EDT Intractable migraine without status migrainosus, unspecified migraine type [facility] Intractable migraine without status migr ainosus, unspecified migraine type Outpatient Attender: MADHAVI GUAJARDOdmitter: MADHAVI WIN ANC -BCC 05/01/2019 08:27:00 AM EST - 05/01/2019 08:27:00 AM EST [facility] - [facility] Patient discharged. Outpatient Attender: SALMA CARRASCOdmitter: SALMA ALVARADO OUT-OUT 2019 12:01:00 AM EST - 05/30/2019 11:59:00 PM EDT [facility] - [facility] Patient discharged. Emergency Attender: Teddy Kurtz nder: Nilton Willson DOAdmitter: Teddy Mckenna MDReferrer: Dinorah Dooley MD M/S-M/S 04/27/2019 01:15:00 PM EST - 04/27/2019 05:18:00 PM EST [facility] Patient discharged. Emergency Attender: Nilton Willson DOAdmitter : Nilton Willson DO ANC-ER 04/27/2019 01:15:00 PM EST [facility] Tonja rdes - [facility] Outpatient Attender: SALMA Bethitter: SALMA ALVARADO OUT-OUT 04/26/2019 02:59:00 PM EST - 04/27/2019 09:13:00 AM EST [facility] - [facility] Patient discharged. Outpatient Attender: SALMA Bethitter: SALMA ALVARADO OUT-OUT 04/25/2019 09:15:00 AM EST - 04/29/2019 11:59:00 PM EST [facility] - [facility] Patient discharged. Outpatient Attender: TAHIRA BELLA PAAdmitter: TAHIRA HOFFMANN MATTHIAS-MATTHIAS 04/24/2019 10:16:00 AM EST - 04/24/2019 10:16:00 AM EST [facility] - [facility] Patient discharged. P Attender: TAHIRA BELLA PAAdmitter: TAHIRA HOFFMANN MATTHIAS-MATTHIAS 04/24/2019 09:00:00 AM EST [facility] P Attender: SALMA Bethitter: SALMA ALVARADO MATTHIAS-MATTHIAS 04/19/2019 09:00:00 AM EST [facility] - [facility] Outpatient Attender: SALMA Thomas: SALMA ALVARADO MATTHIAS-MATTHIAS 04/10/2019 07:46:00 AM EST - 04/10/2019 09:28:00 AM EST [facility] - [facility] Patient discharged. Outpatient Attender: SALMA Bethitter: SALMA ALVARADO ANC-NICKOLAS 04/10/2019 05:00:00 AM EST - 04/10/2019 07:00:00 PM EST [facility] - [facility] Patient discharged. Outpatient Attender: SALMA CARRASCO dmitter: SALMA Alemanultant: Physician Marlen Chan MD ANC-NICKOLAS 04/10/2019 05:00:00 AM EST - 04/10/2019 07:00:00 PM EST [facility] - [facility] P Attender: SALMA Bethitter: SALMA ALVARADO ANC-NICKOLAS 04/10/2019 04:00:00 AM EST [facility] - [facility] P Attender: SALMA Thomas: SALMA ALVARADO PAT-PAT 04/05/2019 04:00:00 AM EST [facility] - [facility] P Attender: SALMA Bethitter: SALMA ALVARADO MATTHIAS-MATTHIAS 04/04/2019 01:50:00 PM EST [facility] - [facility] Outpatient Attender: [id number] [facility] 04/04/2019 11:45:00 AM EST [facility] ([facility] ) Outpatient Attender: SALMA Thomas: SALMA ALVARADO MATTHIAS-MATTHIAS 04/04/2019 09:52:00 AM EST - 04/04/2019 09:52:00 AM EST [facility] - [facility] Patient discharged. Emergency Attender: Toñito Hernandez ter: Toñtio LARKINeferrer: Dinorah Dooley MD M/S-M/S 04/03/2019 12:15:00 PM EST - 04/03/2019 05:20:00 PM EST [facility] - [facility] Patient discharged. Emergency Attender: Toñito Hernandez ter: Toñito LARKINeferrer: Dinorah Dooley MD ANC-ER 04/03/2019 12:15:00 PM EST - 04/03/2019 05:20:00 PM EST [facility] - [facility] P Attender: MADHAVI WOODSYAdmitter: MADHAVI WIN ANC -BCC 03/28/2019 04:00:00 AM EST [facility] - [facility] Outpatient Attender: PROVIDER TESTAdmitter: PROVIDER TEST Jessica -LCB 03/26/2019 11:11:00 AM EST - 03/26/2019 12:11:00 PM EST [facility] - [facility] Patient discharged. Outpatient Attender: Sandra BowersAttender: PROVIDER TESTAdmitter: Sandra ARELLANOB-LCB 03/26/2019 10:11:00 AM EST - 03/26/2019 12:11:00 PM EST [facility] - [facility] Outpatient Attender: Sandra BowersAttender: PROVIDER TESTAdmitter: Sandra ARELLANOB-LCB 03/26/2019 10:11:00 AM EST - 03/27/2019 11:59:59 PM EST [facility] - [facility] Emergency Attender: Atilio Fuller MDAdmitter: Atilio Chavez/S-M/S 02/18/2019 09:11:00 AM EST - 02/18/2019 02:08:00 PM EST [facility] - [facility] Patient discharged. Emergency Attender: Atilio Fuller MDAdmitter: Atilio stahl MD ANC-ER 02/18/2019 09:11:00 AM EST [facility] Outpatient [facility] 01/27/2019 02:52:00 PM EST - 019 12:00:00 AM EDT [facility] Patient discharged. S Radiation / [facility] [place] 1 03/29/2018 02:48:00 PM EST - 01/27/2019 02:48:00 PM EST [facility] ([facility]) Emergency Attender: ANANYA OMALLEY ttender: Nilton Willson DOAdmitter: ANANYA CROWDER DOReferrer: Dinorah Dooley MD M/S-M/S 12/03/19 02:43:00 PM EDT - 12/02/2018 07:06:00 PM EDT [facility] [place] [facility] Patient discharged. Emergency Attender: JIGNESH ELLIS MDAt tender: Atilio Fuller MDAdmitter: JIGNESH ELLIS MDReferrer: Dinorah Dooley MD M/S-M/S 11/28/2018 01:55 :00 PM EDT - 11/28/2018 06:46:00 PM EDT [facility] [facility] Patient discharged. Medications Medication Brand Name Start Date Product Form Dose Route Admi nistrative Instructions Pharmacy Instructions Status Indications Reaction Description Data Source(s) Diclofenac Sodium 50 MG Delayed Release Oral Tablet Diclofen ac Sodium 06/29/2019 12:00:00 AM EDT ORAL active M [facility] ([facility]) naproxen 500 mg oral tablet 05/26/2019 02:15:00 PM EDT 5 00.0 By Mouth completed 500 mg = 1 tab(s), P O (oral), bid, PRN Pain, # 30 tab(s), Maintenance, Pharmacy: [facility]/pharmacy #[id number], 1 tab(s) PO (oral) bid,PRN:Pain [facility] naproxen 500 mg oral tablet 05/26/2019 02:15:00 PM EDT 5 00.0 By Mouth completed 500 mg = 1 tab(s), P O (oral), bid, PRN Pain, # 30 tab(s), Maintenance, Pharmacy: [id number], 1 tab(s) PO (oral) bid,PRN:Pain [facility] - [facility], [facility] naproxen 500 mg oral tablet 05/26/2019 02:15:00 PM EDT 5 00.0 By Mouth completed 500 mg = 1 tab(s), P O (oral), bid, PRN Pain, # 30 tab(s), Maintenance, Pharmacy: [id number], 1 tab(s) PO (oral) bid,PRN:Pain [facility], [facility] naproxen 500 mg oral tablet 05/26/2019 02:15:00 PM EDT 5 00.0 By Mouth completed 500 mg = 1 tab(s), P O (oral), bid, PRN Pain, # 30 tab(s), Maintenance, Pharmacy: [id number], 1 tab(s) PO (oral) bid,PRN:Pain [facility] - [facility], [facility] Zofran 4 mg oral tablet 05/12/2019 02:44:00 PM EDT 4.0 Under your Tongue completed 4 mg = 1 tab(s), SubLINGUAL, q6hr, PRN for Nausea or Vomiting, # 9 tab(s), 0 Refill(s), Maintenance, Pharmacy: [id number], 1 tab(s) SubLINGUAL q6hr,x3 day(s),PRN:for Nausea or Vomiting [facility] - [facility], [facility] Zofran 4 mg oral tablet 05/12/2019 02:44:00 PM EDT 4.0 Under your Tongue completed 4 mg = 1 tab(s), SubLINGUAL, q6hr, PRN for Nausea or Vomiting, # 9 tab(s), 0 Refill(s), Maintenance, Pharmacy: [id number], 1 tab(s) SubLINGUAL q6hr,x3 day(s),PRN:for Nausea or Vomiting [facility] - [facility], [facility] Zofran 4 mg oral tablet 05/12/2019 02:44:00 PM EDT 4.0 Under your Tongue completed 4 mg = 1 tab(s), SubLINGUAL, q6hr, PRN for Nausea or Vomiting, # 9 tab(s), 0 Refill(s), Maintenance, Pharmacy: [id number], 1 tab(s) SubLINGUAL q6hr,x3 day(s),PRN:for Nausea or Vomiting [facility] - [facility] Zofran 4 mg oral tablet 05/12/2019 02:44:00 PM EDT 4.0 Under your Tongue completed 4 mg = 1 tab(s), SubLINGUAL, q6hr, PRN for Nausea or Vomiting, # 9 tab(s), 0 Refill(s), Maintenance, Pharmacy: [id number], 1 tab(s) SubLINGUAL q6hr,x3 day(s),PRN:for Nausea or Vomiting [facility] - [facility] Zofran 4 mg oral tablet 05/12/2019 02:44:00 PM EDT 4.0 Under your Tongue completed 4 mg = 1 tab(s), SubLINGUAL, q6hr, PRN for Nausea or Vomiting, # 9 tab(s), 0 Refill(s), Maintenance, Pharmacy: [facility]/pharmacy #[id number], 1 tab(s) SubLINGUAL q6hr,x3 day(s),PRN:for Nausea or Vomiting [facility] - [facility], [facility] Zofran ODT 4 mg oral tablet, disintegrating 04/27/2019 05: 08:00 PM EST 4.0 By Mouth completed 4 mg = 1 tab(s ), PO (oral), tid, PRN Nausea, # 9 tab(s), Maintenance, Pharmacy: [id number], 1 tab(s) PO (oral) tid,PRN:Nausea [facility] - [facility] Zofran ODT 4 mg oral tablet, disintegrating 04/27/2019 05: 08:00 PM EST 4.0 By Mouth completed 4 mg = 1 tab(s ), PO (oral), tid, PRN Nausea, # 9 tab(s), Maintenance, Pharmacy: [facility]/pharmacy #[id number], 1 tab(s) PO (oral) tid,PRN:Nausea [facility] - [facility] Zofran ODT 4 mg oral tablet, disintegrating 04/27/2019 05: 08:00 PM EST 4.0 By Mouth completed 4 mg = 1 tab(s ), PO (oral), tid, PRN Nausea, # 9 tab(s), Maintenance, Pharmacy: [facility]/pharmacy #[id number], 1 tab(s) PO (oral) tid,PRN:Nausea [facility] - [facility] Zofran ODT 4 mg oral tablet, disintegrating 04/27/2019 05: 08:00 PM EST 4.0 By Mouth completed 4 mg = 1 tab(s ), PO (oral), tid, PRN Nausea, # 9 tab(s), Maintenance, Pharmacy: [facility]/pharmacy #[id number], 1 tab(s) PO (oral) tid,PRN:Nausea [facility] - [facility], [facility] Zofran ODT 4 mg oral tablet, disintegrating 04/27/2019 05: 08:00 PM EST 4.0 By Mouth completed 4 mg = 1 tab(s ), PO (oral), tid, PRN Nausea, # 9 tab(s), Maintenance, Pharmacy: [facility]/pharmacy #[id number], 1 tab(s) PO (oral) tid,PRN:Nausea [facility] - [facility], [facility] Zofran ODT 4 mg oral tablet, disintegrating 04/27/2019 05: 08:00 PM EST 4.0 By Mouth completed 4 mg = 1 tab(s ), PO (oral), tid, PRN Nausea, # 9 tab(s), Maintenance, Pharmacy: [facility]/pharmacy #[id number], 1 tab(s) PO (oral) tid,PRN:Nausea [facility] - [facility], [facility] Omeprazole omeprazole 40 mg oral delayed release capsu le omeprazole 40 mg oral delayed release capsule 04/27/2019 05:00:00 PM EST 40.0 By Mouth completed 40 mg = 1 cap(s), PO (oral), qDay, # 90 cap(s), Maintenance, Pharmacy: [facility]/pharmacy #[id number], 1 cap(s) PO (oral) qDay [facility] - [facility], [facility] Omeprazole omeprazole 40 mg oral delayed release capsu le omeprazole 40 mg oral delayed release capsule 04/27/2019 05:00:00 PM EST 40.0 By Mouth completed 40 mg = 1 cap(s), PO (oral), qDay, # 90 cap(s), Maintenance, Pharmacy: [facility]/pharmacy #[id number], 1 cap(s) PO (oral) qDay [facility] Sarah - [facility], [facility] Omeprazole omeprazole 40 mg oral delayed release capsu le omeprazole 40 mg oral delayed release capsule 04/27/2019 05:00:00 PM EST 40.0 By Mouth completed 40 mg = 1 cap(s), PO (oral), qDay, # 90 cap(s), Maintenance, Pharmacy: [facility]/pharmacy #[id number], 1 cap(s) PO (oral) qDay [facility], [facility] Omeprazole omeprazole 40 mg oral delayed release capsu le omeprazole 40 mg oral delayed release capsule 04/27/2019 05:00:00 PM EST 40.0 By Mouth completed 40 mg = 1 cap(s), PO (oral), qDay, # 90 cap(s), Maintenance, [facility]acy: [id number], 1 cap(s) PO (oral) qDay [facility], [facility] Omeprazole omeprazole 40 mg oral delayed release capsu le omeprazole 40 mg oral delayed release capsule 04/27/2019 05:00:00 PM EST 40.0 By Mouth completed 40 mg = 1 cap(s), PO (oral), qDay, # 90 cap(s), Maintenance, Pharmacy: [facility]/pharmacy #[id number], 1 cap(s) PO (oral) qDay [facility], [facility] Omeprazole omeprazole 40 mg oral delayed release capsu le omeprazole 40 mg oral delayed release capsule 04/27/2019 05:00:00 PM EST 40.0 By Mouth completed 40 mg = 1 cap(s), PO (oral), qDay, # 90 cap(s), Maintenance, Pharmacy: [facility]/pharmacy #[id number], 1 cap(s) PO (oral) qDay [facility], [facility] medroxyPROGESTERone 150 mg/mL intramuscular suspension 04/27/2019 04:13:00 PM EST 150.0 IntraMUSCULAR completed 150 mg =, IM, Maintenance [facility], [facility] Morphine Sulfate 15 MG Oral Tablet Morphine Sulfate 04/11/2019 1 2:00:00 AM EST ORAL completed [facility] ([facility]) acetaminophen-oxyCODONE 325 mg-5 mg oral tablet 2019 12:18:00 PM EST 1.0 By Mouth completed 1 tab(s), PO (oral), q4h, PRN Moderate Pain (4- 6), # 20 tab(s), 0 Refill(s), Maintenance, Pharmacy: [facility]/pharmacy #[id number], 1 tab(s) PO (oral) q4h,PRN:Moderate Pain (4-6) [facility] - [facility], [facility] CeleBREX 100 mg oral capsule 04/10/2019 12:17:00 PM EST 100.0 By Mouth completed 100 mg = 1 cap(s), P O (oral), bid, # 60 cap(s), Maintenance, Pharmacy: [facility]/pharmacy #[id number], 1 cap(s) PO (oral) bid [facility] Sarah - [facility], [facility] docusate sodium 100 mg oral tablet 04/10/2019 12:16:00 PM EST 100.0 By Mouth completed 100 mg =, PO ( oral), qDay, # 5 tab(s), Maintenance, Pharmacy: [facility]/pharmacy #[id number], 100 mg PO (oral) qDay [facility] - [facility], [facility] cephalexin 500 mg oral capsule 04/10/2019 12:16:00 PM EST 500.0 By Mouth completed 500 mg = 1 cap(s ), PO (oral), q6hr, # 12 cap(s), Maintenance, Pharmacy: [facility]/pharmacy #[id number], 1 cap(s) PO (oral) q6hr [facility] Zofran ODT 4 mg oral tablet, disintegrating 04/10/2019 12: 16:00 PM EST Under your Tongue completed 1 to 2 tab(s), SubLINGUAL, q8h, PRN for nausea or vomiting, # 4 tab(s), Maintenance, Pharmacy: [id number], 1 to 2 tab(s) SubLINGUAL q8h,PRN:for nausea or vomiting [facility] aspirin 325 mg oral delayed release tablet 04/10/2019 12:1 6:00 PM EST 325.0 By Mouth completed 325 mg = 1 tab (s), PO (oral), qDay, # 14 tab(s), Maintenance, Pharmacy: [facility]/pharmacy #[id number], 1 tab(s) PO (oral) qDay [facility] - [facility], [facility] Zofran ODT 4 mg oral tablet, disintegrating 04/03/2019 04: 37:30 PM EST Under your Tongue completed 1 to 2 tab(s), SubLINGUAL, q8h, PRN for nausea or vomiting, # 4 tab(s), Maintenance, Pharmacy: [facility]/pharmacy #[id number], 1 to 2 tab(s) SubLINGUAL q8h,PRN:for nausea or vomiting [facility] - [facility], [facility] Macrobid 100 mg oral capsule 03/26/2019 11:05:15 AM EST 100.0 By Mouth completed 100 mg = 1 cap(s), P O (oral), bid, # 10 cap(s), Maintenance, Pharmacy: [facility]/pharmacy #[id number], 1 cap(s) PO (oral) bid,x5 day(s) [facility] Macrobid 100 mg oral capsule 03/26/2019 11:05:15 AM EST 100.0 By Mouth completed 100 mg = 1 cap(s), P O (oral), bid, # 10 cap(s), Maintenance, Pharmacy: [facility]/pharmacy #[id number], 1 cap(s) PO (oral) bid,x5 day(s) [facility] Voltaren 75 mg oral enteric coated tablet 02/18/2019 01:51 :38 PM EST 75.0 By Mouth completed 75 mg = 1 tab( s), PO (oral), bid, # 20 tab(s), Maintenance, Pharmacy: [facility]/pharmacy #[id number], 1 tab(s) PO (oral) bid [facility] Voltaren 75 mg oral enteric coated tablet 02/18/2019 01:51 :38 PM EST 75.0 By Mouth completed 75 mg = 1 tab( s), PO (oral), bid, # 20 tab(s), Maintenance, Pharmacy: [facility]/pharmacy #[id number], 1 tab(s) PO (oral) bid [facility] - [facility] Flonase Allergy Relief 50 mcg/actuation nasal spray,dickinson spension Fluticasone propionate 0.05 MG/ACTUAT Metered Dose Nasal [place] 06/08/2016 12:00:00 AM EDT NASAL completed Fluticason e propionate 0.05 MG/ACTUAT Metered Dose Nasal [place] [Flonase] [facility] trazodone 50 mg tablet trazodone HCl TABLET 1.00 tablet ORAL completed take 1 tablet by oral route every day at bedtime [facility] Hyoscyamine Sulfate 0.125 MG/ML Oral Nat ution HYOSCYAMINE SULFATE (unknown strength) HYOSCYAMINE SULFATE (unknown strength) ORAL completed take 1 milliliter by oral route every 4 hours as needed [facility] Previfem 0.25 mg-35 mcg tablet {21 (Ethinyl Estradiol 0.035 MG / norgestimate 0.25 MG Oral Tablet) / 7 (Inert Ingredients 1 MG Oral Tablet) } Pack TABLET 1.00 tablet ORAL completed Previfem 28 Day [facility] Briellyn 0.4 mg-35 mcg tablet {21 (Ethinyl Estradiol 0 .035 MG / Norethindrone 0.4 MG Oral Tablet) / 7 (Inert Ingredients 1 MG Oral Tablet) } Pack TABLET 1.00 tablet ORAL completed [facility]ellyn [address] [facility] Metformin hydrochloride 500 MG Oral Tablet metformin 5 00 mg tablet metformin 500 mg tablet TABLET 1.00 tablet ORAL completed take 1 tablet by oral route 2 times every day with morning and evening meals [facility] Lactobacillus rhamnosus GG [id number] U NT Oral Capsule Culturelle 10 billion cell capsule Culturelle 10 billion cell capsule CAPSULE ORAL completed [facility] Clonazepam 1 MG Oral Tablet clonazepam 1 mg tablet clonazepam 1 mg tablet TABLET 1 tablet ORAL completed take 1 tablet by oral route 2 times every day [facility] methylphenidate ER 50 mg multiphase capsule 30-70,exte nded release methylphenidate HCl CAPSULE ORAL completed take 1 capsule by oral route every day before breakfast [facility] Insurance Providers Payer name Policy type / Coverage type Policy ID Covered democrat ID Covered democrat's relationship to soto Policy [place] Plan Information [employer] [id number] SP [id number] [facility] COMMERCIAL U [id number] Self 3 [id number] [employer] [id number] CDPHP [id number] self [id number] Medicaid [id number] Self [id number] CDPHP [id number] Self [id number] [place] COMPUT[place] S JA [id number] CDPHP COM [id number] F [id number] [facility] Organizational Contracts [id number] Self [id number] CDPHP [id number] self [id number] CDPHP COM [id number] F [id number] CDPHP COM [id number] F [id number] CDPHP Health Maintenance Organization (HMO) [id number] Family Dependent [id number] Medicaid [id number] Self [id number] CDPHP MCO 14 [id number] DE [id number] CDPHP COMMERCIAL U [id number] Self [id number] GOVERNMENTAL GENERIC B [id number] ORel [id number] MEDICAID M [id number] Self [id number] MEDICAID M [id number] Self [id number] Problems, Conditions, and Diagnoses Code Display Name Description Problem Type Effective Dates Data Source(s) 35515414 Knee pain Knee pain Problem 06/29/2019 12:00:00 AM ED T [facility]SY ([facility]) [id number] Nicotine dependence, cigarettes, uncompl icated Nicotine dependence, cigarettes, uncomplicated Diagnosis 11/07/2019 11:33:00 PM EDT [facility] N949 Unspecified condition associ ated with female genital organs and menstrual cycle Unspecified condition associated with fe male genital organs and menstrual cycle Diagnosis 11/07/2019 11:33:00 PM EDT [facility] N939 Abnormal uterine and vaginal bleeding, u nspecified Abnormal uterine and vaginal bleeding, unspecified Diagnosis 11/07/2019 11:33:00 PM EDT [facility] [id number] Pain in left knee Pain in left knee Diagnosis 06/29/2019 01:18:00 PM EDT Lexi Smith - [facility] K59.00 Constipation, unspecified Constipation, unspecified Di agnosis 06/22/2019 12:00:00 AM EDT [facility] Z4889 Encounter for other specified surgical a ftercare Encounter for other specified surgical aftercare Diagnosis 05/30/2019 08:29:00 AM EDT Asce nsestee Smith - [facility], [facility] fever x 2 days fever x 2 days Diagnosis 05/26/2019 01:33: 00 PM EDT Waldo Sarah - [facility], [facility] left knee injury left knee injury Diagnosis 05/16/2019 05 :23:00 PM EDT Waldo Sarah - [facility], [facility] R509 Fever, unspecified Fever, unspecified Diagnosis 0 02:05:00 PM EDT Waldo Sarah - [facility], [facility] FEVER CONGESTION N/V FEVER CONGESTION N/V Diagnosis 05/12/2019 02:05:00 PM EDT Waldo Sarah - [facility], [facility] J029 Acute pharyngitis, unspecified Acute pharyngitis, unsp ecified Diagnosis 05/12/2019 02:05:00 PM EDT Waldo Sarah - [facility], [facility] VAS RC VAS RC Diagnosis 05/12/2019 12:53:00 PM ED T Waldo Sarah - [facility], [facility] M7989 Other specified soft tissue disorders Ot her specified soft tissue disorders Diagnosis 05/12/2019 12:53:00 PM EDT Waldo Tonja rdes - [facility], [facility] N6452 Nipple discharge Nipple discharge Diagnosis 05/01/2019 08 :27:00 AM EST Waldo Sarah - [facility], [facility] N644 Mastodynia Mastodynia Diagnosis 05/01/2019 08:27:00 AM ES T Waldo Sarah - [facility], [facility] [id number] Other manager terminal (current) drug therapy O ther manager terminal (current) drug therapy Diagnosis 04/27/2019 01:15:00 PM EST Waldo Tonja rdes - [facility], [facility] Z803 Family history of malignant neoplasm of breast Family history of malignant neoplasm of breast Diagnosis 04/27/2019 01:15:00 PM EST Waldo Tonja rdes - [facility], [facility] Z3202 Encounter for test, result neg ative Encounter for test, result negative Diagnosis 04/27/2019 01:15:00 PM EST Waldo L ourdes - [facility], [facility] [id number] Personal history of nicotine dependence Personal history of nicotine dependence Diagnosis 04/27/2019 01:15:00 PM EST Waldo Tonja rdes - [facility], [facility] [id number] Other specified postprocedural states Ot her specified postprocedural states Diagnosis 04/27/2019 01:15:00 PM EST Waldo Tonja rdes - [facility], [facility] R110 Nausea Nausea Diagnosis 04/27/2019 01:15:00 PM ES T Waldo Sarah - [facility], [facility] F329 Major depressive disorder, single episod e, unspecified Major depressive disorder, single episode, unspecified Diagnosis 04/27/2019 01:15:00 PM EST Waldo Sarah - [facility], [facility] F419 Anxiety disorder, unspecified Anxiety disorder, unspec ified Diagnosis 04/27/2019 01:15:00 PM EST Waldo Sarah - [facility], [facility] K2970 Gastritis, unspecified, without bleeding Gastritis, unspecified, without bleeding Diagnosis 04/27/2019 01:15:00 PM EST Waldo Tonja rdes - [facility], [facility] K219 Gastro-esophageal reflux disease without esophagitis Gastro-esophageal reflux disease without esophagitis Diagnosis 04/27/2019 01:15:00 PM ES T Waldo Sarah - [facility], [facility] CHILLS/VOMITING/CHEST CONGESTION/PAIN CHILLS/VOM ITING/CHEST CONGESTION/PAIN Diagnosis 04/27/2019 01:15:00 PM EST Waldo Sarah - [facility] R079 Chest pain, unspecified Chest pain, unspecified Diagno sis 04/27/2019 01:15:00 PM EST Waldo Sarah - [facility], [facility] [id number] Other instability, left knee Other instability, left k nee Diagnosis 04/24/2019 10:16:00 AM EST Waldo Sarah - [facility], [facility] 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, 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, left knee Diagnosis 04/10/2019 07:46:00 AM EST Waldo Tonja rdes - [facility], [facility] F410 Panic disorder episodic paroxysmal an xiety Panic disorder episodic paroxysmal anxiety Diagnosis 04/10/2019 05:00:00 AM EST Waldo Sarah - [facility], [facility] E282 Polycystic ovarian syndrome Polycystic ovarian syndrom e Diagnosis 04/10/2019 05:00:00 AM EST Waldo Sarah - [facility], [facility] F909 Attention-deficit hyperactivity disorder , unspecified type Attention- deficit hyperactivity disorder, unspecified type Diagnosis 04/10 05:00:00 AM EST Waldo Sarah - [facility], [facility] Z8041 Family history of malignant neoplasm of ovary Family history of malignant neoplasm of ovary Diagnosis 04/10/2019 05:00:00 AM EST Waldo Tonja rdes - [facility], [facility] Z880 Allergy status to penicillin Allergy status to penicil livier Diagnosis 04/10/2019 05:00:00 AM EST Waldo Sarah - [facility], [facility] 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, 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, left knee Diagnosis 04/10/2019 05:00:00 AM EST Waldo Tonja rdes - [facility], [facility] MP MP Diagnosis 04/10/2019 05:00:00 AM ES T Waldo Sarah - [facility], [facility] NICKOLAS NICKOLAS Diagnosis 04/10/2019 05:00:00 AM ES T Waldo Sarah - [facility], [facility] M2352 Chronic instability of knee, left knee C hronic instability of knee, left knee Diagnosis 04/10/2019 05:00:00 AM EST Waldo Tonja rdes - [facility], [facility] PAT PHONE PAT PHONE Diagnosis 04/05/2019 04:00:00 AM ES T Waldo Sarah - [facility] [id number] Sprain of medial collateral ligament of left knee, init Sprain of medial collateral ligament of left knee, init Diagnosis 04/04/2019 09:52:00 AM EST Waldo Sarah - [facility], [facility] K589 Irritable bowel syndrome without diarrhe a Irritable bowel syndrome without diarrhea Diagnosis 04/03/2019 12:15:00 PM EST Waldo Tonja rdes - [facility] F418 Other specified anxiety disorders Other specifie d anxiety disorders Diagnosis 04/03/2019 12:15:00 PM EST Waldo Sarah - [facility] K2900 Acute gastritis without bleeding Acute gastritis without bleeding Diagnosis 04/03/2019 12:15:00 PM EST Waldo Sarah - [facility] VOMITING/ABD PAIN/UNABLE TO URINATE VOMITING/ABD PAIN/UNABLE TO URINATE Diagnosis 04/03/2019 12:15:00 PM EST Waldo Sarah - [facility] R1032 Left lower quadrant pain Left lower quadrant pain Diag nosis 04/03/2019 12:15:00 PM EST Waldo Sarah - [facility], [facility] BCC PRESLEY BCC PRESLEY Diagnosis 03/28/2019 04:00:00 AM ES T Waldo Sarah - [facility], [facility] vomitting for a week vomitting for a week Diagnosis 03/26/2019 10:11:00 AM EST Waldo Sarah - [facility] N390 Urinary tract infection, site not specif ied Urinary tract infection, site not specified Diagnosis 03/26/2019 10:11:00 AM EST Waldo Tonja rdes - [facility] N946 Dysmenorrhea, unspecified Dysmenorrhea, unspecified Di agnosis 02/18/2019 09:11:00 AM EST Waldo Sarah - [facility], [facility] VOMITTING/RECTAL BLEEDING VOMITTING/RECTAL BLEEDING Di agnosis 02/18/2019 09:11:00 AM EST Waldo Sarah - [facility] R1030 Lower abdominal pain, unspecified Lower abdomina l pain, unspecified Diagnosis 02/18/2019 09:11:00 AM EST Waldo Sarah - [facility] Surgeries/Procedures Procedure Description Date Indications Data Source(s) POSTOP FOLLOW-UP VISIT POSTOP FOLLOW-UP VISIT 06/29/2019 12:00:00 A M EDT Waldo Sarah - [facility] X-RAY EXAM OF KNEE 3 X-RAY EXAM OF KNEE 3 06/29/2019 12:00:00 AM ED T Waldo Sarah - [facility] X-RAY EXAM OF KNEE 3 X-RAY EXAM OF KNEE 3 06/29/2019 12:00:00 AM ED T Waldo Sarah - [facility] POSTOP FOLLOW-UP VISIT POSTOP FOLLOW-UP VISIT 06/29/2019 12:00:00 A M EDT Waldo Sarah - [facility] X-Ray Knee Ap & Lateral W/Obliques Three Views 020 12:00:00 AM EDT [facility] ([facility]) OFFICE/OUTPATIENT VISIT EST OFFICE/OUTPATIENT VISIT EST 04/30 12:00:00 AM EDT Waldo Sarah - [facility], [facility] OFFICE/OUTPATIENT VISIT EST OFFICE/OUTPATIENT VISIT EST 04/30 12:00:00 AM EDT Waldo Sarah - [facility] X-RAY EXAM OF KNEE 3 X-RAY EXAM OF KNEE 3 05/16/2019 12:00:00 AM ED T Waldo Sarah - [facility], [facility] OFFICE/OUTPATIENT VISIT EST OFFICE/OUTPATIENT VISIT EST 04/29 12:00:00 AM EDT Waldo Sarah - [facility], [facility] X-RAY EXAM OF KNEE 3 X-RAY EXAM OF KNEE 3 05/16/2019 12:00:00 AM ED T Waldo Sarah - [facility], [facility] OFFICE/OUTPATIENT VISIT EST OFFICE/OUTPATIENT VISIT EST 04/29 12:00:00 AM EDT Waldo Sarah - [facility] X-RAY EXAM OF KNEE 3 X-RAY EXAM OF KNEE 3 05/16/2019 12:00:00 AM ED T Waldo Sarah - [facility] X-RAY EXAM OF KNEE 3 X-RAY EXAM OF KNEE 3 05/16/2019 12:00:00 AM ED T Waldo Sarah - [facility] X-RAY EXAM OF KNEE 3 X-RAY EXAM OF KNEE 3 05/16/2019 12:00:00 AM ED T Waldo Sarah - [facility] RSV DNA/RNA AMP PROBE RSV DNA/RNA AMP PROBE 05/12/2019 12:00:00 AM EDT Waldo Sarah - [facility] STREP A AG IA STREP A AG IA 05/12/2019 12:00:00 AM EDT Waldo Sarah - [facility] EXTREMITY STUDY EXTREMITY STUDY 05/12/2019 12:00:00 AM EDT Waldo Sarah - [facility] EMERGENCY DEPT VISIT EMERGENCY DEPT VISIT 05/12/2019 12:00:00 AM ED T Waldo Sarah - [facility] INFLUENZA DNA AMP PROBE INFLUENZA DNA AMP PROBE 05/12/2019 12:00:00 AM EDT Waldo Sarah - [facility] EMERGENCY DEPT VISIT EMERGENCY DEPT VISIT 05/12/2019 12:00:00 AM ED T Waldo Sarah - [facility] RSV DNA/RNA AMP PROBE RSV DNA/RNA AMP PROBE 05/12/2019 12:00:00 AM EDT Waldo Sarah - [facility] STREP A AG IA STREP A AG IA 05/12/2019 12:00:00 AM EDT Waldo Sarah - [facility] INFLUENZA DNA AMP PROBE INFLUENZA DNA AMP PROBE 05/12/2019 12:00:00 AM EDT Waldo Sarah - [facility] EXTREMITY STUDY EXTREMITY STUDY 05/12/2019 12:00:00 AM EDT Waldo Sarah - [facility] STREP A AG IA STREP A AG IA 05/12/2019 12:00:00 AM EDT Waldo Sarah - [facility] INFLUENZA DNA AMP PROBE INFLUENZA DNA AMP PROBE 05/12/2019 12:00:00 AM EDT Waldo Sarah - [facility] EMERGENCY DEPT VISIT EMERGENCY DEPT VISIT 05/12/2019 12:00:00 AM ED T Waldo Sarah - [facility] RSV DNA/RNA AMP PROBE RSV DNA/RNA AMP PROBE 05/12/2019 12:00:00 AM EDT Waldo Sarah - [facility] EXTREMITY STUDY EXTREMITY STUDY 05/12/2019 12:00:00 AM EDT Waldo Sarah - [facility] INFLUENZA DNA AMP PROBE INFLUENZA DNA AMP PROBE 05/12/2019 12:00:00 AM EDT Waldo Sarah - [facility] EMERGENCY DEPT VISIT EMERGENCY DEPT VISIT 05/12/2019 12:00:00 AM ED T Waldo Sarah - [facility] RSV DNA/RNA AMP PROBE RSV DNA/RNA AMP PROBE 05/12/2019 12:00:00 AM EDT Waldo Sarah - [facility] STREP A AG IA STREP A AG IA 05/12/2019 12:00:00 AM EDT Waldo Sarah - [facility] INFLUENZA DNA AMP PROBE INFLUENZA DNA AMP PROBE 05/12/2019 12:00:00 AM EDT Waldo Sarah - [facility] EMERGENCY DEPT VISIT EMERGENCY DEPT VISIT 05/12/2019 12:00:00 AM ED T Waldo Sarah - [facility] RSV DNA/RNA AMP PROBE RSV DNA/RNA AMP PROBE 05/12/2019 12:00:00 AM EDT Waldo Sarah - [facility] STREP A AG IA STREP A AG IA 05/12/2019 12:00:00 AM EDT Waldo Sarah - [facility] THERAPEUTIC EXERCISES THERAPEUTIC EXERCISES 05/09/2019 12:00:00 AM EDT Waldo Sarah - [facility] THERAPEUTIC EXERCISES THERAPEUTIC EXERCISES 05/09/2019 12:00:00 AM EDT Waldo Sarah - [facility], [facility] THERAPEUTIC EXERCISES THERAPEUTIC EXERCISES 05/09/2019 12:00:00 AM EDT Waldo Sarah - [facility], [facility] Therapeutic, prophylactic, or diagnostic injection; Sub Cut/ IM 05/08/2019 12:00:00 AM EDT - 05/08/2019 12:00:00 AM EDT [facility] Toradol Inj Per 15 mg 05/08/2019 12:00:00 AM EDT - 05/08/2019 12:00:00 AM EDT [facility] Office/outpatient visit,est, mod 020 12:00:00 AM EDT - 05/08/2019 12:00:00 AM EDT [facility] THERAPEUTIC EXERCISES THERAPEUTIC EXERCISES 05/03/2019 12:00:00 AM EST Waldo Sarah [facility] THERAPEUTIC EXERCISES THERAPEUTIC EXERCISES 05/03/2019 12:00:00 AM EST Waldo Sarah - [facility], [facility] THERAPEUTIC EXERCISES THERAPEUTIC EXERCISES 05/03/2019 12:00:00 AM EST Waldo Sarah - [facility], [facility] OFFICE/OUTPATIENT VISIT EST OFFICE/OUTPATIENT VISIT EST 04/2019 12:00:00 AM EST Waldo Sarah - [facility], [facility] OFFICE/OUTPATIENT VISIT EST OFFICE/OUTPATIENT VISIT EST 04/2019 12:00:00 AM EST Waldo Sarah [facility] ASSAY OF TROPONIN QUANT ASSAY OF TROPONIN QUANT 04/27/2019 12:00:00 AM EST Waldo Sarah - [facility], [facility] CHORIONIC GONADOTROPIN ASSAY CHORIONIC GONADOTROPIN ASSAY 12:00:00 AM EST [facility], [facility] FIBRIN DEGRADATION QUANT FIBRIN DEGRADATION QUANT 04/27/2019 12:00: 00 AM EST Waldo Sarah - [facility], [facility] COMPREHEN METABOLIC PANEL COMPREHEN METABOLIC PANEL 04/27/2019 1 2:00:00 AM EST Waldo Sarah - [facility], [facility] EMERGENCY DEPT VISIT EMERGENCY DEPT VISIT 04/27/2019 12:00:00 AM ES T Waldo Sarah - [facility], [facility] BLOOD COUNT COMPLETE AUTO&AUTO DIFRNTL WBC COUNT COMPLETE CB C W/AUTO DIFF WBC 04/27/2019 12:00:00 AM EST Waldo Sarah - [facility] ELECTROCARDIOGRAM TRACING ELECTROCARDIOGRAM TRACING 04/27/2019 1 2:00:00 AM EST Waldo Sarah - [facility], [facility] X-RAY EXAM CHEST 2 VIEWS X-RAY EXAM CHEST 2 VIEWS 04/27/2019 12:00: 00 AM EST Waldo Sarah - [facility], [facility] ROUTINE VENIPUNCTURE ROUTINE VENIPUNCTURE 04/27/2019 12:00:00 AM ES T Waldo Sarah - [facility], [facility] COMPREHEN METABOLIC PANEL COMPREHEN METABOLIC PANEL 04/27/2019 1 2:00:00 AM EST Waldo Sarah - [facility], [facility] X-RAY EXAM CHEST 2 VIEWS X-RAY EXAM CHEST 2 VIEWS 04/27/2019 12:00: 00 AM EST Waldo Sarah - [facility], [facility] FIBRIN DEGRADATION QUANT FIBRIN DEGRADATION QUANT 04/27/2019 12:00: 00 AM EST Waldo Sarah - [facility], [facility] BLOOD COUNT COMPLETE AUTO&AUTO DIFRNTL WBC COUNT COMPLETE CB C W/AUTO DIFF WBC 04/27/2019 12:00:00 AM EST Waldo Sarah - [facility] CHORIONIC GONADOTROPIN ASSAY CHORIONIC GONADOTROPIN ASSAY 12:00:00 AM EST Waldo Sarah - [facility], [facility] EMERGENCY DEPT VISIT EMERGENCY DEPT VISIT 04/27/2019 12:00:00 AM ES T Waldo Sarah - [facility], [facility] ROUTINE VENIPUNCTURE ROUTINE VENIPUNCTURE 04/27/2019 12:00:00 AM ES T Waldo Sarah - [facility], [facility] ELECTROCARDIOGRAM TRACING ELECTROCARDIOGRAM TRACING 04/27/2019 1 2:00:00 AM EST Waldo Sarah - [facility], [facility] ASSAY OF TROPONIN QUANT ASSAY OF TROPONIN QUANT 04/27/2019 12:00:00 AM EST Waldo Sarah - [facility], [facility] ELECTROCARDIOGRAM TRACING ELECTROCARDIOGRAM TRACING 04/27/2019 1 2:00:00 AM EST Waldo Sarah - [facility], [facility] BLOOD COUNT COMPLETE AUTO&AUTO DIFRNTL WBC COUNT COMPLETE CB C W/AUTO DIFF WBC 04/27/2019 12:00:00 AM EST Waldo Sarah - [facility] EMERGENCY DEPT VISIT EMERGENCY DEPT VISIT 04/27/2019 12:00:00 AM ES T Waldo Sarah - [facility], [facility] COMPREHEN METABOLIC PANEL COMPREHEN METABOLIC PANEL 04/27/2019 1 2:00:00 AM EST Waldo Sarah - [facility], [facility] ROUTINE VENIPUNCTURE ROUTINE VENIPUNCTURE 04/27/2019 12:00:00 AM ES T Waldo Sarah - [facility], [facility] CHORIONIC GONADOTROPIN ASSAY CHORIONIC GONADOTROPIN ASSAY 12:00:00 AM EST Waldo Sarah - [facility], [facility] FIBRIN DEGRADATION QUANT FIBRIN DEGRADATION QUANT 04/27/2019 12:00: 00 AM EST Waldo Sarah - [facility], [facility] X-RAY EXAM CHEST 2 VIEWS X-RAY EXAM CHEST 2 VIEWS 04/27/2019 12:00: 00 AM EST Waldo Sarah - [facility], [facility] ASSAY OF TROPONIN QUANT ASSAY OF TROPONIN QUANT 04/27/2019 12:00:00 AM EST Waldo Sarah - [facility], [facility] CHORIONIC GONADOTROPIN ASSAY CHORIONIC GONADOTROPIN ASSAY 12:00:00 AM EST Waldo Sarah - [facility], [facility] COMPREHEN METABOLIC PANEL COMPREHEN METABOLIC PANEL 04/27/2019 1 2:00:00 AM EST Waldo Sarah - [facility], [facility] BLOOD COUNT COMPLETE AUTO&AUTO DIFRNTL WBC COUNT COMPLETE CB C W/AUTO DIFF WBC 04/27/2019 12:00:00 AM EST Waldo Sarah - [facility] FIBRIN DEGRADATION QUANT FIBRIN DEGRADATION QUANT 04/27/2019 12:00: 00 AM EST Waldo Sarah - [facility], [facility] ASSAY OF TROPONIN QUANT ASSAY OF TROPONIN QUANT 04/27/2019 12:00:00 AM EST Waldo Sarah - [facility], [facility] X-RAY EXAM CHEST 2 VIEWS X-RAY EXAM CHEST 2 VIEWS 04/27/2019 12:00: 00 AM EST Waldo Sarah - [facility], [facility] ROUTINE VENIPUNCTURE ROUTINE VENIPUNCTURE 04/27/2019 12:00:00 AM ES T Waldo Sarah - [facility], [facility] ELECTROCARDIOGRAM TRACING ELECTROCARDIOGRAM TRACING 04/27/2019 1 2:00:00 AM EST Waldo Sarah - [facility], [facility] EMERGENCY DEPT VISIT EMERGENCY DEPT VISIT 04/27/2019 12:00:00 AM ES T Waldo Sarah - [facility], [facility] COMPREHEN METABOLIC PANEL COMPREHEN METABOLIC PANEL 04/27/2019 1 2:00:00 AM EST Waldo Sarah - [facility], [facility] ROUTINE VENIPUNCTURE ROUTINE VENIPUNCTURE 04/27/2019 12:00:00 AM ES T Waldo Sarah - [facility], [facility] CHORIONIC GONADOTROPIN ASSAY CHORIONIC GONADOTROPIN ASSAY 12:00:00 AM EST Waldo Sarah - [facility], [facility] X-RAY EXAM CHEST 2 VIEWS X-RAY EXAM CHEST 2 VIEWS 04/27/2019 12:00: 00 AM EST Waldo Sarah - [facility], [facility] FIBRIN DEGRADATION QUANT FIBRIN DEGRADATION QUANT 04/27/2019 12:00: 00 AM EST Waldo Sarah - [facility] ELECTROCARDIOGRAM TRACING ELECTROCARDIOGRAM TRACING 04/27/2019 1 2:00:00 AM EST Waldo Sarah - [facility] ASSAY OF TROPONIN QUANT ASSAY OF TROPONIN QUANT 04/27/2019 12:00:00 AM EST Waldo Sarah - [facility], [facility] EMERGENCY DEPT VISIT EMERGENCY DEPT VISIT 04/27/2019 12:00:00 AM ES T Waldo Sarah - [facility] BLOOD COUNT COMPLETE AUTO&AUTO DIFRNTL WBC COUNT COMPLETE CB C W/AUTO DIFF WBC 04/27/2019 12:00:00 AM EST [facility] Sarah - [facility] X-RAY EXAM OF KNEE 1 OR 2 X-RAY EXAM OF KNEE 1 OR 2 04/24/2019 1 2:00:00 AM EST Waldo Sarah - [facility] POSTOP FOLLOW-UP VISIT POSTOP FOLLOW-UP VISIT 04/24/2019 12:00:00 A M EST Waldo Sarah - [facility] X-RAY EXAM OF KNEE 1 OR 2 X-RAY EXAM OF KNEE 1 OR 2 04/24/2019 1 2:00:00 AM EST Waldo Sarah - [facility] POSTOP FOLLOW-UP VISIT POSTOP FOLLOW-UP VISIT 04/24/2019 12:00:00 A M EST Waldo Sarah - [facility] X-Ray Knee Ap & Lateral 04/24/2019 12:00:00 AM EST [facility] ([facility]) X-RAY EXAM OF KNEE 1 OR 2 X-RAY EXAM OF KNEE 1 OR 2 04/24/2019 1 2:00:00 AM EST Waldo Sarah - [facility] POSTOP FOLLOW-UP VISIT POSTOP FOLLOW-UP VISIT 04/24/2019 12:00:00 A M EST Waldo Sarah - [facility] X-RAY EXAM OF KNEE 1 OR 2 X-RAY EXAM OF KNEE 1 OR 2 04/24/2019 1 2:00:00 AM EST Waldo Sarah - [facility], [facility] POSTOP FOLLOW-UP VISIT POSTOP FOLLOW-UP VISIT 04/24/2019 12:00:00 A M EST Waldo Sarah - [facility], [facility] POSTOP FOLLOW-UP VISIT POSTOP FOLLOW-UP VISIT 04/24/2019 12:00:00 A M EST Waldo Sarah - [facility], [facility] X-RAY EXAM OF KNEE 1 OR 2 X-RAY EXAM OF KNEE 1 OR 2 04/24/2019 1 2:00:00 AM EST Waldo Sarah - [facility], [facility] Reposition Left Knee Joint, Open Approach Reposition L eft Knee Joint, Open Approach 04/10/2019 12:00:00 AM EST Waldo Tonja rdes - [facility], [facility] REVISION OF UNSTABLE KNEECAP REVISION OF UNSTABLE KNEECAP 12:00:00 AM EST Waldo Sarah - [facility], [facility] left knee reconstruction left knee reconstruction 04/10/2019 12:00: 00 AM EST Waldo Sarah - [facility], [facility] RECONSTRUCTION KNEE RECONSTRUCTION KNEE 04/10/2019 12:00:00 AM EST Waldo Sarah - [facility], [facility] REVISION OF UNSTABLE KNEECAP REVISION OF UNSTABLE KNEECAP 12:00:00 AM EST Waldo Sarah - [facility], [facility] Reposition Left Knee Joint, Open Approach Reposition L eft Knee Joint, Open Approach 04/10/2019 12:00:00 AM EST Waldo Tonja rdes - [facility], [facility] RECONSTRUCTION KNEE RECONSTRUCTION KNEE 04/10/2019 12:00:00 AM EST Waldo Sarah - [facility], [facility] REVISION OF UNSTABLE KNEECAP REVISION OF UNSTABLE KNEECAP 12:00:00 AM EST Waldo Sarah - [facility], [facility] left knee reconstruction left knee reconstruction 04/10/2019 12:00: 00 AM EST Waldo Sarah - [facility], [facility] REVISION OF UNSTABLE KNEECAP REVISION OF UNSTABLE KNEECAP 12:00:00 AM EST Waldo Sarah - [facility] Reconstruct Patella W/Extensor Realignment/Muscle Advance/Re lease 04/10/2019 12:00:00 AM EST [facility] ([facility]) Reconstruct Patella W/Extensor Realignment/Muscle Advance/Re lease 04/10/2019 12:00:00 AM EST [facility] ([facility]) left knee reconstruction left knee reconstruction 04/10/2019 12:00: 00 AM EST Waldo Sarah - [facility], [facility] REVISION OF UNSTABLE KNEECAP REVISION OF UNSTABLE KNEECAP 12:00:00 AM EST Waldo Sarah - [facility], [facility] RECONSTRUCTION KNEE RECONSTRUCTION KNEE 04/10/2019 12:00:00 AM EST Waldo Sarah - [facility], [facility] REVISION OF UNSTABLE KNEECAP REVISION OF UNSTABLE KNEECAP 12:00:00 AM EST Waldo Sarah - [facility] Reposition Left Knee Joint, Open Approach Reposition L eft Knee Joint, Open Approach 04/10/2019 12:00:00 AM EST Waldo Tonja rdes - [facility], [facility] REVISION OF UNSTABLE KNEECAP REVISION OF UNSTABLE KNEECAP 12:00:00 AM EST Waldo Sarah - [facility], [facility] RECONSTRUCTION KNEE RECONSTRUCTION KNEE 04/10/2019 12:00:00 AM EST Waldo Sarah - [facility], [facility] REVISION OF UNSTABLE KNEECAP REVISION OF UNSTABLE KNEECAP 12:00:00 AM EST Waldo Sarah - [facility] left knee reconstruction left knee reconstruction 04/10/2019 12:00: 00 AM EST Waldo Sarah - [facility] Reposition Left Knee Joint, Open Approach Reposition L eft Knee Joint, Open Approach 04/10/2019 12:00:00 AM EST Waldo Tonja rdes - [facility] left knee reconstruction left knee reconstruction 04/10/2019 12:00: 00 AM EST Waldo Sarah - [facility] REVISION OF UNSTABLE KNEECAP REVISION OF UNSTABLE KNEECAP 12:00:00 AM EST Waldo Sarah - [facility], [facility] REVISION OF UNSTABLE KNEECAP REVISION OF UNSTABLE KNEECAP 12:00:00 AM EST Waldo Sarah - [facility] Reposition Left Knee Joint, Open Approach Reposition L eft Knee Joint, Open Approach 04/10/2019 12:00:00 AM EST Waldo Tonja rdes - [facility], [facility] RECONSTRUCTION KNEE RECONSTRUCTION KNEE 04/10/2019 12:00:00 AM EST Waldo Sarah - [facility], [facility] REVISION OF UNSTABLE KNEECAP REVISION OF UNSTABLE KNEECAP 12:00:00 AM EST Waldo Sarah - [facility], [facility] REVISION OF UNSTABLE KNEECAP REVISION OF UNSTABLE KNEECAP 12:00:00 AM EST Waldo Sarah - [facility] Reposition Left Knee Joint, Open Approach Reposition L eft Knee Joint, Open Approach 04/10/2019 12:00:00 AM EST Waldo Tonja rdes - [facility], [facility] RECONSTRUCTION KNEE RECONSTRUCTION KNEE 04/10/2019 12:00:00 AM EST Waldo Sarah - [facility] OFFICE/OUTPATIENT VISIT EST OFFICE/OUTPATIENT VISIT EST 05/2019 12:00:00 AM EST Waldo Sarah - [facility] OFFICE/OUTPATIENT VISIT EST OFFICE/OUTPATIENT VISIT EST 05/2019 12:00:00 AM EST Waldo Sarah - [facility] OFFICE/OUTPATIENT VISIT EST OFFICE/OUTPATIENT VISIT EST 05/2019 12:00:00 AM EST Waldo Sarah - [facility] OFFICE/OUTPATIENT VISIT EST OFFICE/OUTPATIENT VISIT EST 05/2019 12:00:00 AM EST Waldo Sarah - [facility] OFFICE/OUTPATIENT VISIT EST OFFICE/OUTPATIENT VISIT EST 05/2019 12:00:00 AM EST Waldo Sarah - [facility] OFFICE/OUTPATIENT VISIT EST OFFICE/OUTPATIENT VISIT EST 05/2019 12:00:00 AM EST Waldo Sarah - [facility], [facility] ONDANSETRON HCL INJECTION ONDANSETRON HCL INJECTION 04/03/2019 1 2:00:00 AM EST Waldo Sarah - [facility], [facility] URINE CULTURE/COLONY COUNT URINE CULTURE/COLONY COUNT 2019 12:00:00 AM EST Waldo Sarah - [facility], [facility] C-REACTIVE PROTEIN C-REACTIVE PROTEIN 04/03/2019 12:00:00 AM EST Waldo Sarah - [facility], [facility] EMERGENCY DEPT VISIT EMERGENCY DEPT VISIT 04/03/2019 12:00:00 AM ES T Waldo Sarah - [facility] CT ABD & PELVIS W/O CONTRAST CT ABD & PELVIS W/O CONTRAST 12:00:00 AM EST Waldo Sarah - [facility], [facility] THER/PROPH/DIAG INJ IV PUSH THER/PROPH/DIAG INJ IV PUSH 04/2019 12:00:00 AM EST Waldo Sarah - [facility], [facility] ASSAY OF LIPASE ASSAY OF LIPASE 04/03/2019 12:00:00 AM EST Waldo Sarah - [facility] BLOOD COUNT COMPLETE AUTO&AUTO DIFRNTL WBC COUNT COMPLETE CB C W/AUTO DIFF WBC 04/03/2019 12:00:00 AM EST Waldo Sarah - [facility] ROUTINE VENIPUNCTURE ROUTINE VENIPUNCTURE 04/03/2019 12:00:00 AM ES T Waldo Sarah - [facility] COMPREHEN METABOLIC PANEL COMPREHEN METABOLIC PANEL 04/03/2019 1 2:00:00 AM EST Waldo Sarah - [facility] URINALYSIS AUTO W/SCOPE URINALYSIS AUTO W/SCOPE 04/03/2019 12:00:00 AM EST Waldo Sarah - [facility], [facility] CHORIONIC GONADOTROPIN ASSAY CHORIONIC GONADOTROPIN ASSAY 12:00:00 AM EST Waldo Sarah - [facility], [facility] Catheterize for urine spec Catheterize for urine spec 2019 12:00:00 AM EST Waldo Sarah - [facility], [facility] URINALYSIS AUTO W/SCOPE URINALYSIS AUTO W/SCOPE 04/03/2019 12:00:00 AM EST Waldo Sarah - [facility], [facility] EMERGENCY DEPT VISIT EMERGENCY DEPT VISIT 04/03/2019 12:00:00 AM ES T Waldo Sarah - [facility], [facility] ONDANSETRON HCL INJECTION ONDANSETRON HCL INJECTION 04/03/2019 1 2:00:00 AM EST Waldo Sarah - [facility], [facility] URINE CULTURE/COLONY COUNT URINE CULTURE/COLONY COUNT 2019 12:00:00 AM EST Waldo Sarah - [facility], [facility] C-REACTIVE PROTEIN C-REACTIVE PROTEIN 04/03/2019 12:00:00 AM EST Waldo Sarah - [facility], [facility] ROUTINE VENIPUNCTURE ROUTINE VENIPUNCTURE 04/03/2019 12:00:00 AM ES T Waldo Sarah - [facility], [facility] CHORIONIC GONADOTROPIN ASSAY CHORIONIC GONADOTROPIN ASSAY 12:00:00 AM EST Waldo Sarah - [facility], [facility] Catheterize for urine spec Catheterize for urine spec 2019 12:00:00 AM EST Waldo Sarah - [facility] BLOOD COUNT COMPLETE AUTO&AUTO DIFRNTL WBC COUNT COMPLETE CB C W/AUTO DIFF WBC 04/03/2019 12:00:00 AM EST [facility]do Sarah - [facility], [facility] COMPREHEN METABOLIC PANEL COMPREHEN METABOLIC PANEL 04/03/2019 1 2:00:00 AM EST Waldo Sarah - [facility], [facility] CT ABD & PELVIS W/O CONTRAST CT ABD & PELVIS W/O CONTRAST 12:00:00 AM EST Waldo Sarah - [facility], [facility] THER/PROPH/DIAG INJ IV PUSH THER/PROPH/DIAG INJ IV PUSH 04/2019 12:00:00 AM EST Waldo Sarah - [facility], [facility] ASSAY OF LIPASE ASSAY OF LIPASE 04/03/2019 12:00:00 AM EST Waldo Sarah - [facility], [facility] THER/PROPH/DIAG INJ IV PUSH THER/PROPH/DIAG INJ IV PUSH 04/2019 12:00:00 AM EST Waldo Sarah - [facility], [facility] BLOOD COUNT COMPLETE AUTO&AUTO DIFRNTL WBC COUNT COMPLETE CB C W/AUTO DIFF WBC 04/03/2019 12:00:00 AM EST Waldo Sarah - [facility], [facility] CHORIONIC GONADOTROPIN ASSAY CHORIONIC GONADOTROPIN ASSAY 12:00:00 AM EST Waldo Sarah - [facility], [facility] Catheterize for urine spec Catheterize for urine spec 2019 12:00:00 AM EST Waldo Sarah - [facility], [facility] ASSAY OF LIPASE ASSAY OF LIPASE 04/03/2019 12:00:00 AM EST Waldo Sarah - [facility], [facility] URINE CULTURE/COLONY COUNT URINE CULTURE/COLONY COUNT 2019 12:00:00 AM EST Waldo Sarah - [facility], [facility] URINALYSIS AUTO W/SCOPE URINALYSIS AUTO W/SCOPE 04/03/2019 12:00:00 AM EST Waldo Sarah - [facility], [facility] C-REACTIVE PROTEIN C-REACTIVE PROTEIN 04/03/2019 12:00:00 AM EST Waldo Sarah - [facility], [facility] ROUTINE VENIPUNCTURE ROUTINE VENIPUNCTURE 04/03/2019 12:00:00 AM ES T Waldo Sarah - [facility], [facility] ONDANSETRON HCL INJECTION ONDANSETRON HCL INJECTION 04/03/2019 1 2:00:00 AM EST Waldo Sarah - [facility], [facility] COMPREHEN METABOLIC PANEL COMPREHEN METABOLIC PANEL 04/03/2019 1 2:00:00 AM EST Waldo Sarah - [facility], [facility] CT ABD & PELVIS W/O CONTRAST CT ABD & PELVIS W/O CONTRAST 12:00:00 AM EST Waldo Sarah - [facility], [facility] EMERGENCY DEPT VISIT EMERGENCY DEPT VISIT 04/03/2019 12:00:00 AM ES T Waldo Sarah - [facility], [facility] BLOOD COUNT COMPLETE AUTO&AUTO DIFRNTL WBC COUNT COMPLETE CB C W/AUTO DIFF WBC 04/03/2019 12:00:00 AM EST [facility]do Sarah - [facility], [facility] ONDANSETRON HCL INJECTION ONDANSETRON HCL INJECTION 04/03/2019 1 2:00:00 AM EST Waldo Sarah - [facility], [facility] URINE CULTURE/COLONY COUNT URINE CULTURE/COLONY COUNT 2019 12:00:00 AM EST Waldo Sarah - [facility], [facility] C-REACTIVE PROTEIN C-REACTIVE PROTEIN 04/03/2019 12:00:00 AM EST Waldo Sarah - [facility], [facility] CHORIONIC GONADOTROPIN ASSAY CHORIONIC GONADOTROPIN ASSAY 12:00:00 AM EST Waldo Sarah - [facility], [facility] ASSAY OF LIPASE ASSAY OF LIPASE 04/03/2019 12:00:00 AM EST Waldo Sarah - [facility], [facility] THER/PROPH/DIAG INJ IV PUSH THER/PROPH/DIAG INJ IV PUSH 04/2019 12:00:00 AM EST Waldo Sarah - [facility], [facility] Catheterize for urine spec Catheterize for urine spec 2019 12:00:00 AM EST Waldo Sarah - [facility], [facility] COMPREHEN METABOLIC PANEL COMPREHEN METABOLIC PANEL 04/03/2019 1 2:00:00 AM EST Waldo Sarah - [facility], [facility] URINALYSIS AUTO W/SCOPE URINALYSIS AUTO W/SCOPE 04/03/2019 12:00:00 AM EST Waldo Sarah - [facility], [facility] ROUTINE VENIPUNCTURE ROUTINE VENIPUNCTURE 04/03/2019 12:00:00 AM ES T Waldo Sarah - [facility], [facility] EMERGENCY DEPT VISIT EMERGENCY DEPT VISIT 04/03/2019 12:00:00 AM ES T Waldo Sarah - [facility], [facility] CT ABD & PELVIS W/O CONTRAST CT ABD & PELVIS W/O CONTRAST 12:00:00 AM EST Waldo Sarah - [facility], [facility] BLOOD COUNT COMPLETE AUTO&AUTO DIFRNTL WBC COUNT COMPLETE CB C W/AUTO DIFF WBC 04/03/2019 12:00:00 AM EST [facility]do Sarah - [facility], [facility] ROUTINE VENIPUNCTURE ROUTINE VENIPUNCTURE 04/03/2019 12:00:00 AM ES T Waldo Sarah - [facility], [facility] COMPREHEN METABOLIC PANEL COMPREHEN METABOLIC PANEL 04/03/2019 1 2:00:00 AM EST Waldo Sarah - [facility], [facility] CT ABD & PELVIS W/O CONTRAST CT ABD & PELVIS W/O CONTRAST 12:00:00 AM EST Waldo Sarah - [facility], [facility] URINALYSIS AUTO W/SCOPE URINALYSIS AUTO W/SCOPE 04/03/2019 12:00:00 AM EST Waldo Sarah - [facility], [facility] C-REACTIVE PROTEIN C-REACTIVE PROTEIN 04/03/2019 12:00:00 AM EST Waldo Sarah - [facility], [facility] ASSAY OF LIPASE ASSAY OF LIPASE 04/03/2019 12:00:00 AM EST Waldo Sarah - [facility], [facility] Catheterize for urine spec Catheterize for urine spec 2019 12:00:00 AM EST Waldo Sarah - [facility] ONDANSETRON HCL INJECTION ONDANSETRON HCL INJECTION 04/03/2019 1 2:00:00 AM EST Waldo Sarah - [facility], [facility] URINE CULTURE/COLONY COUNT URINE CULTURE/COLONY COUNT 2019 12:00:00 AM EST Waldo Sarah - [facility], [facility] THER/PROPH/DIAG INJ IV PUSH THER/PROPH/DIAG INJ IV PUSH 0 04/2019 12:00:00 AM EST Waldo Sarah - [facility], [facility] CHORIONIC GONADOTROPIN ASSAY CHORIONIC GONADOTROPIN ASSAY 12:00:00 AM EST Waldo Sarah - [facility], [facility] EMERGENCY DEPT VISIT EMERGENCY DEPT VISIT 04/03/2019 12:00:00 AM ES T Waldo Sarah - [facility], [facility] THER/PROPH/DIAG INJ IV PUSH THER/PROPH/DIAG INJ IV PUSH 04/2019 12:00:00 AM EST Waldo Sarah - [facility], [facility] C-REACTIVE PROTEIN C-REACTIVE PROTEIN 04/03/2019 12:00:00 AM EST Waldo Sarah - [facility], [facility] COMPREHEN METABOLIC PANEL COMPREHEN METABOLIC PANEL 04/03/2019 1 2:00:00 AM EST Waldo Sarah - [facility] ROUTINE VENIPUNCTURE ROUTINE VENIPUNCTURE 04/03/2019 12:00:00 AM ES T Waldo Sarah - [facility] URINALYSIS AUTO W/SCOPE URINALYSIS AUTO W/SCOPE 04/03/2019 12:00:00 AM EST Waldo Sarah - [facility] BLOOD COUNT COMPLETE AUTO&AUTO DIFRNTL WBC COUNT COMPLETE CB C W/AUTO DIFF WBC 04/03/2019 12:00:00 AM EST [facility] Sarah - [facility], [facility] EMERGENCY DEPT VISIT EMERGENCY DEPT VISIT 04/03/2019 12:00:00 AM ES T Waldo Sarah - [facility] ONDANSETRON HCL INJECTION ONDANSETRON HCL INJECTION 04/03/2019 1 2:00:00 AM EST Waldo Sarah - [facility] CHORIONIC GONADOTROPIN ASSAY CHORIONIC GONADOTROPIN ASSAY 12:00:00 AM EST Waldo Sarah - [facility] URINE CULTURE/COLONY COUNT URINE CULTURE/COLONY COUNT 2019 12:00:00 AM EST Waldo Sarah - [facility] Catheterize for urine spec Catheterize for urine spec 2019 12:00:00 AM EST Waldo Sarah - [facility] CT ABD & PELVIS W/O CONTRAST CT ABD & PELVIS W/O CONTRAST 12:00:00 AM EST Waldo Sarah - [facility], [facility] ASSAY OF LIPASE ASSAY OF LIPASE 04/03/2019 12:00:00 AM EST Waldo Sarah - [facility], [facility] C-REACTIVE PROTEIN C-REACTIVE PROTEIN 04/03/2019 12:00:00 AM EST Waldo Sarah - [facility], [facility] Catheterize for urine spec Catheterize for urine spec 2019 12:00:00 AM EST Waldo Sarah - [facility] BLOOD COUNT COMPLETE AUTO&AUTO DIFRNTL WBC COUNT COMPLETE CB C W/AUTO DIFF WBC 04/03/2019 12:00:00 AM EST Waldo Sarah - [facility] COMPREHEN METABOLIC PANEL COMPREHEN METABOLIC PANEL 04/03/2019 1 2:00:00 AM EST Waldo Sarah - [facility] CHORIONIC GONADOTROPIN ASSAY CHORIONIC GONADOTROPIN ASSAY 12:00:00 AM EST Waldo Sarah - [facility] ONDANSETRON HCL INJECTION ONDANSETRON HCL INJECTION 04/03/2019 1 2:00:00 AM EST Waldo Sarah - [facility] URINE CULTURE/COLONY COUNT URINE CULTURE/COLONY COUNT 2019 12:00:00 AM EST Waldo Sarah - [facility] CT ABD & PELVIS W/O CONTRAST CT ABD & PELVIS W/O CONTRAST 12:00:00 AM EST Waldo Sarah - [facility], [facility] ROUTINE VENIPUNCTURE ROUTINE VENIPUNCTURE 04/03/2019 12:00:00 AM ES T Waldo Sarah - [facility], [facility] EMERGENCY DEPT VISIT EMERGENCY DEPT VISIT 04/03/2019 12:00:00 AM ES T Waldo Sarah - [facility], [facility] URINALYSIS AUTO W/SCOPE URINALYSIS AUTO W/SCOPE 04/03/2019 12:00:00 AM EST Waldo Sarah - [facility], [facility] THER/PROPH/DIAG INJ IV PUSH THER/PROPH/DIAG INJ IV PUSH 04/2019 12:00:00 AM EST Waldo Sarah - [facility], [facility] ASSAY OF LIPASE ASSAY OF LIPASE 04/03/2019 12:00:00 AM EST Waldo Sarah - [facility], [facility] URINE CULTURE/COLONY COUNT URINE CULTURE/COLONY COUNT 2019 12:00:00 AM EST Waldo Sarah - [facility], [facility] OFFICE/OUTPATIENT VISIT EST OFFICE/OUTPATIENT VISIT EST 03/02 12:00:00 AM EST Waldo Sarah - [facility] OFFICE/OUTPATIENT VISIT EST OFFICE/OUTPATIENT VISIT EST 03/02 12:00:00 AM EST Waldo Sarah - [facility] URINE CULTURE/COLONY COUNT URINE CULTURE/COLONY COUNT 2019 12:00:00 AM EST Waldo Sarah - [facility], [facility] URINE CULTURE/COLONY COUNT URINE CULTURE/COLONY COUNT 2019 12:00:00 AM EST Waldo Sarah - [facility], [facility] URINE CULTURE/COLONY COUNT URINE CULTURE/COLONY COUNT 2019 12:00:00 AM EST Waldo Sarah - [facility], [facility] URINE CULTURE/COLONY COUNT URINE CULTURE/COLONY COUNT 2019 12:00:00 AM EST Waldo Sarah - [facility], [facility] URINE CULTURE/COLONY COUNT URINE CULTURE/COLONY COUNT 2019 12:00:00 AM EST Waldo Sarah - [facility], [facility] URINE CULTURE/COLONY COUNT URINE CULTURE/COLONY COUNT 2019 12:00:00 AM EST Waldo Sarah - [facility], [facility] URINE CULTURE/COLONY COUNT URINE CULTURE/COLONY COUNT 2019 12:00:00 AM EST Waldo Sarah - [facility], [facility] URINE CULTURE/COLONY COUNT URINE CULTURE/COLONY COUNT 2019 12:00:00 AM EST Waldo Sarah - [facility], [facility] CHORIONIC GONADOTROPIN ASSAY CHORIONIC GONADOTROPIN ASSAY 12:00:00 AM EST Waldo Sarah - [facility], [facility] ASSAY OF AMYLASE ASSAY OF AMYLASE 02/18/2019 12:00:00 AM EST Waldo Sarah - [facility], [facility] COMPREHEN METABOLIC PANEL COMPREHEN METABOLIC PANEL 02/18/2019 1 2:00:00 AM EST Waldo Sarah - [facility], [facility] EMERGENCY DEPT VISIT EMERGENCY DEPT VISIT 02/18/2019 12:00:00 AM ES T Waldo Sarah - [facility], [facility] CT ABD & PELV W/CONTRAST CT ABD & PELV W/CONTRAST 02/18/2019 12:00: 00 AM EST Waldo Sarah - [facility], [facility] THROMBOPLASTIN TIME PARTIAL THROMBOPLASTIN TIME PARTIAL 01/30 12:00:00 AM EST Waldo Sarah - [facility] [facility] TRANSVAGINAL US NON-OB TRANSVAGINAL US NON-OB 02/18/2019 12:00:00 A M EST Waldo Sarah - [facility] BLOOD COUNT COMPLETE AUTO&AUTO DIFRNTL WBC COUNT COMPLETE CB C W/AUTO DIFF WBC 02/18/2019 12:00:00 AM EST [facility]do Sarah - [facility] C-REACTIVE PROTEIN C-REACTIVE PROTEIN 02/18/2019 12:00:00 AM EST Waldo Sarah - [facility] KETOROLAC TROMETHAMINE INJ KETOROLAC TROMETHAMINE INJ 2018 12:00:00 AM EST Waldo Sarah - [facility] ROUTINE VENIPUNCTURE ROUTINE VENIPUNCTURE 02/18/2019 12:00:00 AM ES T Waldo Sarah - [facility] ROUTINE VENIPUNCTURE ROUTINE VENIPUNCTURE 02/18/2019 12:00:00 AM ES T Waldo Sarah - [facility] THER/PROPH/DIAG INJ IV PUSH THER/PROPH/DIAG INJ IV PUSH 01/30 12:00:00 AM EST Waldo Sarah - [facility] ASSAY OF LIPASE ASSAY OF LIPASE 02/18/2019 12:00:00 AM EST Waldo Sarah - [facility] EMERGENCY DEPT VISIT EMERGENCY DEPT VISIT 02/18/2019 12:00:00 AM ES T Waldo Sarah - [facility] C-REACTIVE PROTEIN C-REACTIVE PROTEIN 02/18/2019 12:00:00 AM EST Waldo Sarah - [facility] THROMBOPLASTIN TIME PARTIAL THROMBOPLASTIN TIME PARTIAL 01/30 12:00:00 AM EST Waldo Sarah - [facility] KETOROLAC TROMETHAMINE INJ KETOROLAC TROMETHAMINE INJ 2018 12:00:00 AM EST Waldo Sarah - [facility] ROUTINE VENIPUNCTURE ROUTINE VENIPUNCTURE 02/18/2019 12:00:00 AM ES T Waldo Sarah - [facility] CHORIONIC GONADOTROPIN ASSAY CHORIONIC GONADOTROPIN ASSAY 12:00:00 AM EST Waldo Sarah - [facility] ASSAY OF LIPASE ASSAY OF LIPASE 02/18/2019 12:00:00 AM EST Waldo Sarah - [facility], [facility] COMPREHEN METABOLIC PANEL COMPREHEN METABOLIC PANEL 02/18/2019 1 2:00:00 AM EST Waldo Sarah - [facility], [facility] BLOOD COUNT COMPLETE AUTO&AUTO DIFRNTL WBC COUNT COMPLETE CB C W/AUTO DIFF WBC 02/18/2019 12:00:00 AM EST Waldo Sarah - [facility] THER/PROPH/DIAG INJ IV PUSH THER/PROPH/DIAG INJ IV PUSH 01/30 12:00:00 AM EST Waldo Sarah - [facility], [facility] CT ABD & PELV W/CONTRAST CT ABD & PELV W/CONTRAST 02/18/2019 12:00: 00 AM EST Waldo Sarah - [facility], [facility] TRANSVAGINAL US NON-OB TRANSVAGINAL US NON-OB 02/18/2019 12:00:00 A M EST Waldo Sarah - [facility], [facility] ASSAY OF AMYLASE ASSAY OF AMYLASE 02/18/2019 12:00:00 AM EST Waldo Sarah - [facility], [facility] ROUTINE VENIPUNCTURE ROUTINE VENIPUNCTURE 02/18/2019 12:00:00 AM ES T Waldo Sarah - [facility], [facility] THROMBOPLASTIN TIME PARTIAL THROMBOPLASTIN TIME PARTIAL 01/30 12:00:00 AM EST Waldo Sarah - [facility], [facility] KETOROLAC TROMETHAMINE INJ KETOROLAC TROMETHAMINE INJ 2018 12:00:00 AM EST Waldo Sarah - [facility], [facility] ROUTINE VENIPUNCTURE ROUTINE VENIPUNCTURE 02/18/2019 12:00:00 AM ES T Waldo Sarah - [facility], [facility] THER/PROPH/DIAG INJ IV PUSH THER/PROPH/DIAG INJ IV PUSH 01/30 12:00:00 AM EST Waldo Sarah - [facility], [facility] CHORIONIC GONADOTROPIN ASSAY CHORIONIC GONADOTROPIN ASSAY 12:00:00 AM EST Waldo Sarah - [facility] TRANSVAGINAL US NON-OB TRANSVAGINAL US NON-OB 02/18/2019 12:00:00 A M EST Waldo Sarah - [facility], [facility] BLOOD COUNT COMPLETE AUTO&AUTO DIFRNTL WBC COUNT COMPLETE CB C W/AUTO DIFF WBC 02/18/2019 12:00:00 AM EST [facility]do Sarah - [facility] ROUTINE VENIPUNCTURE ROUTINE VENIPUNCTURE 02/18/2019 12:00:00 AM ES T Waldo Sarah - [facility], [facility] EMERGENCY DEPT VISIT EMERGENCY DEPT VISIT 02/18/2019 12:00:00 AM ES T Waldo Sarah - [facility], [facility] ASSAY OF LIPASE ASSAY OF LIPASE 02/18/2019 12:00:00 AM EST Waldo Sarah - [facility], [facility] CT ABD & PELV W/CONTRAST CT ABD & PELV W/CONTRAST 02/18/2019 12:00: 00 AM EST Waldo Sarah - [facility], [facility] COMPREHEN METABOLIC PANEL COMPREHEN METABOLIC PANEL 02/18/2019 1 2:00:00 AM EST Waldo Sarah - [facility], [facility] ASSAY OF AMYLASE ASSAY OF AMYLASE 02/18/2019 12:00:00 AM EST Waldo Sarah - [facility], [facility] C-REACTIVE PROTEIN C-REACTIVE PROTEIN 02/18/2019 12:00:00 AM EST Waldo Sarah - [facility], [facility] ROUTINE VENIPUNCTURE ROUTINE VENIPUNCTURE 02/18/2019 12:00:00 AM ES T Waldo Sarah - [facility], [facility] COMPREHEN METABOLIC PANEL COMPREHEN METABOLIC PANEL 02/18/2019 1 2:00:00 AM EST Waldo Sarah - [facility], [facility] CHORIONIC GONADOTROPIN ASSAY CHORIONIC GONADOTROPIN ASSAY 12:00:00 AM EST Waldo Sarah - [facility], [facility] ROUTINE VENIPUNCTURE ROUTINE VENIPUNCTURE 02/18/2019 12:00:00 AM ES T Waldo Sarah - [facility], [facility] C-REACTIVE PROTEIN C-REACTIVE PROTEIN 02/18/2019 12:00:00 AM EST Waldo Sarah - [facility], [facility] ASSAY OF LIPASE ASSAY OF LIPASE 02/18/2019 12:00:00 AM EST Waldo Sarah - [facility], [facility] ASSAY OF AMYLASE ASSAY OF AMYLASE 02/18/2019 12:00:00 AM EST Waldo Sarah - [facility], [facility] THER/PROPH/DIAG INJ IV PUSH THER/PROPH/DIAG INJ IV PUSH 01/30 12:00:00 AM EST Waldo Sarah - [facility], [facility] KETOROLAC TROMETHAMINE INJ KETOROLAC TROMETHAMINE INJ 2018 12:00:00 AM EST Waldo Sarah - [facility], [facility] CT ABD & PELV W/CONTRAST CT ABD & PELV W/CONTRAST 02/18/2019 12:00: 00 AM EST Waldo Sarah - [facility], [facility] EMERGENCY DEPT VISIT EMERGENCY DEPT VISIT 02/18/2019 12:00:00 AM ES T Waldo Sarah - [facility], [facility] THROMBOPLASTIN TIME PARTIAL THROMBOPLASTIN TIME PARTIAL 01/30 12:00:00 AM EST Waldo Sarah - [facility], [facility] BLOOD COUNT COMPLETE AUTO&AUTO DIFRNTL WBC COUNT COMPLETE CB C W/AUTO DIFF WBC 02/18/2019 12:00:00 AM EST [facility]do Sarah - [facility] TRANSVAGINAL US NON-OB TRANSVAGINAL US NON-OB 02/18/2019 12:00:00 A M EST Waldo Sarah - [facility], [facility] THROMBOPLASTIN TIME PARTIAL THROMBOPLASTIN TIME PARTIAL 01/30 12:00:00 AM EST Waldo Sarah - [facility], [facility] CHORIONIC GONADOTROPIN ASSAY CHORIONIC GONADOTROPIN ASSAY 12:00:00 AM EST Waldo Sarah - [facility] ROUTINE VENIPUNCTURE ROUTINE VENIPUNCTURE 02/18/2019 12:00:00 AM ES T Waldo Sarah - [facility], [facility] ROUTINE VENIPUNCTURE ROUTINE VENIPUNCTURE 02/18/2019 12:00:00 AM ES T Waldo Sarah - [facility] ASSAY OF AMYLASE ASSAY OF AMYLASE 02/18/2019 12:00:00 AM EST Waldo Sarah - [facility] BLOOD COUNT COMPLETE AUTO&AUTO DIFRNTL WBC COUNT COMPLETE CB C W/AUTO DIFF WBC 02/18/2019 12:00:00 AM EST Waldo Sarah - [facility], [facility] THER/PROPH/DIAG INJ IV PUSH THER/PROPH/DIAG INJ IV PUSH 01/30 12:00:00 AM EST Waldo Sarah - [facility], [facility] ASSAY OF LIPASE ASSAY OF LIPASE 02/18/2019 12:00:00 AM EST Waldo Sarah - [facility] C-REACTIVE PROTEIN C-REACTIVE PROTEIN 02/18/2019 12:00:00 AM EST Waldo Sarah - [facility] CT ABD & PELV W/CONTRAST CT ABD & PELV W/CONTRAST 02/18/2019 12:00: 00 AM EST Waldo Sarah - [facility] TRANSVAGINAL US NON-OB TRANSVAGINAL US NON-OB 02/18/2019 12:00:00 A M EST Waldo Sarah - [facility] COMPREHEN METABOLIC PANEL COMPREHEN METABOLIC PANEL 02/18/2019 1 2:00:00 AM EST Waldo Sarah - [facility] KETOROLAC TROMETHAMINE INJ KETOROLAC TROMETHAMINE INJ 2018 12:00:00 AM EST Waldo Sarah - [facility] EMERGENCY DEPT VISIT EMERGENCY DEPT VISIT 02/18/2019 12:00:00 AM ES T Waldo Sarah - [facility], [facility] EMERGENCY DEPT VISIT EMERGENCY DEPT VISIT 02/18/2019 12:00:00 AM ES T Waldo Sarah - [facility], [facility] COMPREHEN METABOLIC PANEL COMPREHEN METABOLIC PANEL 02/18/2019 1 2:00:00 AM EST Waldo Sarah - [facility], [facility] TRANSVAGINAL US NON-OB TRANSVAGINAL US NON-OB 02/18/2019 12:00:00 A M EST Waldo Sarah - [facility], [facility] KETOROLAC TROMETHAMINE INJ KETOROLAC TROMETHAMINE INJ 2018 12:00:00 AM EST Waldo Sarah - [facility], [facility] ROUTINE VENIPUNCTURE ROUTINE VENIPUNCTURE 02/18/2019 12:00:00 AM ES T Waldo Sarah - [facility], [facility] CHORIONIC GONADOTROPIN ASSAY CHORIONIC GONADOTROPIN ASSAY 12:00:00 AM EST Waldo Sarah - [facility], [facility] ASSAY OF LIPASE ASSAY OF LIPASE 02/18/2019 12:00:00 AM EST Waldo Sarah - [facility], [facility] THER/PROPH/DIAG INJ IV PUSH THER/PROPH/DIAG INJ IV PUSH 01/30 12:00:00 AM EST Waldo Sarah - [facility], [facility] ASSAY OF AMYLASE ASSAY OF AMYLASE 02/18/2019 12:00:00 AM EST Waldo Sarah - [facility], [facility] BLOOD COUNT COMPLETE AUTO&AUTO DIFRNTL WBC COUNT COMPLETE CB C W/AUTO DIFF WBC 02/18/2019 12:00:00 AM EST Waldo Sarah - [facility] C-REACTIVE PROTEIN C-REACTIVE PROTEIN 02/18/2019 12:00:00 AM EST Waldo Sarah - [facility], [facility] ROUTINE VENIPUNCTURE ROUTINE VENIPUNCTURE 02/18/2019 12:00:00 AM ES T Waldo Sarah - [facility] CT ABD & PELV W/CONTRAST CT ABD & PELV W/CONTRAST 02/18/2019 12:00: 00 AM EST Waldo Sarah - [facility], [facility] THROMBOPLASTIN TIME PARTIAL THROMBOPLASTIN TIME PARTIAL 01/30 12:00:00 AM EST Waldo Sarah - [facility], [facility] ASSAY OF AMYLASE ASSAY OF AMYLASE 02/18/2019 12:00:00 AM EST Waldo Sarah - [facility], [facility] ROUTINE VENIPUNCTURE ROUTINE VENIPUNCTURE 02/18/2019 12:00:00 AM ES T Waldo Sarah - [facility], [facility] COMPREHEN METABOLIC PANEL COMPREHEN METABOLIC PANEL 02/18/2019 1 2:00:00 AM EST Waldo Sarah - [facility], [facility] BLOOD COUNT COMPLETE AUTO&AUTO DIFRNTL WBC COUNT COMPLETE CB C W/AUTO DIFF WBC 02/18/2019 12:00:00 AM EST Waldo Sarah - [facility], [facility] THER/PROPH/DIAG INJ IV PUSH THER/PROPH/DIAG INJ IV PUSH 01/30 12:00:00 AM EST Waldo Sarah - [facility], [facility] CHORIONIC GONADOTROPIN ASSAY CHORIONIC GONADOTROPIN ASSAY 12:00:00 AM EST Waldo Sarah - [facility], [facility] KETOROLAC TROMETHAMINE INJ KETOROLAC TROMETHAMINE INJ 2018 12:00:00 AM EST Waldo Sarah - [facility], [facility] THROMBOPLASTIN TIME PARTIAL THROMBOPLASTIN TIME PARTIAL 01/30 12:00:00 AM EST Waldo Sarah - [facility], [facility] ASSAY OF LIPASE ASSAY OF LIPASE 02/18/2019 12:00:00 AM EST Waldo Sarah - [facility], [facility] C-REACTIVE PROTEIN C-REACTIVE PROTEIN 02/18/2019 12:00:00 AM EST Waldo Sarah - [facility], [facility] ROUTINE VENIPUNCTURE ROUTINE VENIPUNCTURE 02/18/2019 12:00:00 AM ES T Waldo Sarah - [facility], [facility] TRANSVAGINAL US NON-OB TRANSVAGINAL US NON-OB 02/18/2019 12:00:00 A M EST Waldo Sarah - [facility], [facility] EMERGENCY DEPT VISIT EMERGENCY DEPT VISIT 02/18/2019 12:00:00 AM ES T Waldo Sarah - [facility] CT ABD & PELV W/CONTRAST CT ABD & PELV W/CONTRAST 02/18/2019 12:00: 00 AM EST Waldo Sarah - [facility], [facility] EMERGENCY DEPT VISIT EMERGENCY DEPT VISIT 02/18/2019 12:00:00 AM ES T Waldo Sarah - [facility], [facility] KETOROLAC TROMETHAMINE INJ KETOROLAC TROMETHAMINE INJ 2018 12:00:00 AM EST Waldo Sarah - [facility], [facility] C-REACTIVE PROTEIN C-REACTIVE PROTEIN 02/18/2019 12:00:00 AM EST Waldo Sarah - [facility], [facility] COMPREHEN METABOLIC PANEL COMPREHEN METABOLIC PANEL 02/18/2019 1 2:00:00 AM EST Waldo Sarah - [facility], [facility] CT ABD & PELV W/CONTRAST CT ABD & PELV W/CONTRAST 02/18/2019 12:00: 00 AM EST Waldo Sarah - [facility] ROUTINE VENIPUNCTURE ROUTINE VENIPUNCTURE 02/18/2019 12:00:00 AM ES T Waldo Sarah - [facility], [facility] CHORIONIC GONADOTROPIN ASSAY CHORIONIC GONADOTROPIN ASSAY 12:00:00 AM EST Waldo Sarah - [facility], [facility] ROUTINE VENIPUNCTURE ROUTINE VENIPUNCTURE 02/18/2019 12:00:00 AM ES T Waldo Sarah - [facility], [facility] ASSAY OF AMYLASE ASSAY OF AMYLASE 02/18/2019 12:00:00 AM EST Waldo Sarah - [facility], [facility] THROMBOPLASTIN TIME PARTIAL THROMBOPLASTIN TIME PARTIAL 01/30 12:00:00 AM EST Waldo Sarah - [facility], [facility] TRANSVAGINAL US NON-OB TRANSVAGINAL US NON-OB 02/18/2019 12:00:00 A M EST Waldo Sarah - [facility], [facility] ASSAY OF LIPASE ASSAY OF LIPASE 02/18/2019 12:00:00 AM EST Waldo Sarah - [facility], [facility] BLOOD COUNT COMPLETE AUTO&AUTO DIFRNTL WBC COUNT COMPLETE CB C W/AUTO DIFF WBC 02/18/2019 12:00:00 AM EST [facility]do Sarah - [facility] THER/PROPH/DIAG INJ IV PUSH THER/PROPH/DIAG INJ IV PUSH 01/30 12:00:00 AM EST Waldo Sarah - [facility], [facility] CHORIONIC GONADOTROPIN ASSAY CHORIONIC GONADOTROPIN ASSAY 12:00:00 AM EST Waldo Sarah - [facility], [facility] THROMBOPLASTIN TIME PARTIAL THROMBOPLASTIN TIME PARTIAL 01/30 12:00:00 AM EST Waldo Sarah - [facility], [facility] C-REACTIVE PROTEIN C-REACTIVE PROTEIN 02/18/2019 12:00:00 AM EST Waldo Sarah - [facility], [facility] ASSAY OF LIPASE ASSAY OF LIPASE 02/18/2019 12:00:00 AM EST Waldo Sarah - [facility] THER/PROPH/DIAG INJ IV PUSH THER/PROPH/DIAG INJ IV PUSH 01/30 12:00:00 AM EST Waldo Sarah - [facility] COMPREHEN METABOLIC PANEL COMPREHEN METABOLIC PANEL 02/18/2019 1 2:00:00 AM EST Waldo Sarah - [facility] ROUTINE VENIPUNCTURE ROUTINE VENIPUNCTURE 02/18/2019 12:00:00 AM ES T Waldo Sarah - [facility], [facility] EMERGENCY DEPT VISIT EMERGENCY DEPT VISIT 02/18/2019 12:00:00 AM ES T Waldo Sarah - [facility] TRANSVAGINAL US NON-OB TRANSVAGINAL US NON-OB 02/18/2019 12:00:00 A M EST Waldo Sarah - [facility], [facility] BLOOD COUNT COMPLETE AUTO&AUTO DIFRNTL WBC COUNT COMPLETE CB C W/AUTO DIFF WBC 02/18/2019 12:00:00 AM EST Waldo Sarah - [facility], [facility] CT ABD & PELV W/CONTRAST CT ABD & PELV W/CONTRAST 02/18/2019 12:00: 00 AM EST Waldo Sarah - [facility], [facility] KETOROLAC TROMETHAMINE INJ KETOROLAC TROMETHAMINE INJ 2018 12:00:00 AM EST Waldo Sarah - [facility], [facility] ROUTINE VENIPUNCTURE ROUTINE VENIPUNCTURE 02/18/2019 12:00:00 AM ES T Waldo Sarah - [facility], [facility] ASSAY OF AMYLASE ASSAY OF AMYLASE 02/18/2019 12:00:00 AM EST Waldo Sarah - [facility], [facility] COMPREHEN METABOLIC PANEL COMPREHEN METABOLIC PANEL 02/18/2019 1 2:00:00 AM EST Waldo Sarah - [facility], [facility] CHORIONIC GONADOTROPIN ASSAY CHORIONIC GONADOTROPIN ASSAY 12:00:00 AM EST Waldo Sarah - [facility], [facility] THROMBOPLASTIN TIME PARTIAL THROMBOPLASTIN TIME PARTIAL 01/30 12:00:00 AM EST Waldo Sarah - [facility] TRANSVAGINAL US NON-OB TRANSVAGINAL US NON-OB 02/18/2019 12:00:00 A M EST Waldo Sarah - [facility], [facility] EMERGENCY DEPT VISIT EMERGENCY DEPT VISIT 02/18/2019 12:00:00 AM ES T Waldo Sarah - [facility] KETOROLAC TROMETHAMINE INJ KETOROLAC TROMETHAMINE INJ 2018 12:00:00 AM EST Waldo Sarah - [facility] ROUTINE VENIPUNCTURE ROUTINE VENIPUNCTURE 02/18/2019 12:00:00 AM ES T Waldo Sarah - [facility] THER/PROPH/DIAG INJ IV PUSH THER/PROPH/DIAG INJ IV PUSH 01/30 12:00:00 AM EST Waldo Sarah - [facility] C-REACTIVE PROTEIN C-REACTIVE PROTEIN 02/18/2019 12:00:00 AM EST Waldo Sarah - [facility] BLOOD COUNT COMPLETE AUTO&AUTO DIFRNTL WBC COUNT COMPLETE CB C W/AUTO DIFF WBC 02/18/2019 12:00:00 AM EST [facility]do Sarah - [facility], [facility] ROUTINE VENIPUNCTURE ROUTINE VENIPUNCTURE 02/18/2019 12:00:00 AM ES T Waldo Sarah - [facility] CT ABD & PELV W/CONTRAST CT ABD & PELV W/CONTRAST 02/18/2019 12:00: 00 AM EST Waldo Sarah - [facility] ASSAY OF AMYLASE ASSAY OF AMYLASE 02/18/2019 12:00:00 AM EST Waldo Sarah - [facility], [facility] ASSAY OF LIPASE ASSAY OF LIPASE 02/18/2019 12:00:00 AM EST Waldo Sarah - [facility] C-REACTIVE PROTEIN C-REACTIVE PROTEIN 02/18/2019 12:00:00 AM EST Waldo Sarah - [facility] ROUTINE VENIPUNCTURE ROUTINE VENIPUNCTURE 02/18/2019 12:00:00 AM ES T Waldo Sarah - [facility] THROMBOPLASTIN TIME PARTIAL THROMBOPLASTIN TIME PARTIAL 01/30 12:00:00 AM EST Waldo Sarah - [facility] BLOOD COUNT COMPLETE AUTO&AUTO DIFRNTL WBC COUNT COMPLETE CB C W/AUTO DIFF WBC 02/18/2019 12:00:00 AM EST [facility]do Sarah - [facility] EMERGENCY DEPT VISIT EMERGENCY DEPT VISIT 02/18/2019 12:00:00 AM ES T Waldo Sarah - [facility], [facility] ROUTINE VENIPUNCTURE ROUTINE VENIPUNCTURE 02/18/2019 12:00:00 AM ES T Waldo Sarah - [facility], [facility] ASSAY OF LIPASE ASSAY OF LIPASE 02/18/2019 12:00:00 AM EST Waldo Sarah - [facility], [facility] THER/PROPH/DIAG INJ IV PUSH THER/PROPH/DIAG INJ IV PUSH 01/30 12:00:00 AM EST Waldo Sarah - [facility], [facility] ASSAY OF AMYLASE ASSAY OF AMYLASE 02/18/2019 12:00:00 AM EST Waldo Sarah - [facility], [facility] CHORIONIC GONADOTROPIN ASSAY CHORIONIC GONADOTROPIN ASSAY 12:00:00 AM EST Waldo Sarah - [facility], [facility] COMPREHEN METABOLIC PANEL COMPREHEN METABOLIC PANEL 02/18/2019 1 2:00:00 AM EST Waldo Sarah - [facility], [facility] CT ABD & PELV W/CONTRAST CT ABD & PELV W/CONTRAST 02/18/2019 12:00: 00 AM EST Waldo Sarah - [facility], [facility] TRANSVAGINAL US NON-OB TRANSVAGINAL US NON-OB 02/18/2019 12:00:00 A M EST Waldo Sarah - [facility], [facility] KETOROLAC TROMETHAMINE INJ KETOROLAC TROMETHAMINE INJ 2018 12:00:00 AM EST Waldo Sarah - [facility], [facility] Results ID Date Data Source [id number] 12/20/2019 04:52:[address] [facility] Name Value Range Interpretation Code Description Data Arianne rce(s) Supporting Document(s) Progress Note [facility] [id number] lbm [file] [id number] [file] [id number] ID Date Data Source [id number] 11/07/2019 11:33:00 PM EDT [facility] 1 OrderSheet [facility] Emergency Department [address] [place] [address] Phone #: act- [phone] 11/07/2019 23:28 Patient: BERKLEY LOPEZ Sex: F : 2000 Age: 19yWEIGHT:106.5 kg (S)ALLERGIES: PenicillinsCHIEF COMPLAINT: vag bleedingDIAGNOSIS: DysmenorrheaLAB ORDERSOrder Description Priority Entered Acknowledged [facility] w Diff STAT 23:55 11/07/2019 23:56 TannerRonda Lopez RN, M.D.;CMP STAT 23:55 11/07/2019 23:56 Ronda [...] 25 mg M.D.;(NOW x1, HIGH 2 OrderSheet [facility] Emergency Department [address] [place] [address] Phone #: ext- [phone] 11/07/2019 23:28 Patient: BERKLEY LOPEZ Sex: F : 2000 Age: 19yALERTMEDICATION)Toradol 15 mg IVP 23:55 11/07/2019 00:09 11/08/2019X1 dose: 15 mg Ronda Garcia RN(NOW x1) M.D.;GENERAL ORDERSOrder Description Priority Entered Acknowledged InitialedNPO 23:55 11/07/2019 23:56 TannerRonda Lopez RN, M.D.;Saline Lock 23:55 11/07/2019 23:56 Ronda Napier RN, M.D.;[Electronically signed by Ronda Garcia M.D. (01:27 11/08/2019)][Electronically signed by Jennifer Oleary R.N. (05:05 11/08/2019)][Electronically locked by Jennifer Oleary R.N. (05:11/08/2019)] Name Value Range Interpretation Code Description Data Arianne rce(s) Supporting Document(s) ID Date Data Source [id number] 11/07/2019 11:33:00 PM EDT [facility] 1 Medication Reconciliation Report [facility] Emergency Department [address] [place] [address] Phone #: ext- [phone] 11/07/2019 23:28 Patient: [...] Dispense 14 tablet.Refills: 2. Substitution permitted.Pharmacy - [id number] - [id number], [place] [id number]. . -- Ronda Garcia M.D. Name Value Range Interpretation Code Description Data Arianne rce(s) Supporting Document(s) ID Date Data Source [id number] 11/07/2019 11:33:00 PM EDT [facility] [facility] Medication Administration Record [facility] Emergency Department [address] [place] [address] Phone #: ext- [phone] 11/07/2019 23:28 Patient: BERKLEY LOEPZ Sex: F : 2000 Age: 19yWeight: 106.5 kgHeight/Length: 66 inBMI: 37.9ALLERGIES: Penicillins Date/Time Medication Administered Medication OrderedStart NS [IV] NS IV 1000 mL Bolus: : Bolus [id number] 11/08/2019 Dose: IV Fluids mL (X1)Tanner Hopson [...] rce(s) Supporting Document(s) ID Date Data Source [id number] 11/07/2019 11:33:00 PM EDT [facility] 1 General Instructions [facility] Emergency Department [address] [place] [address] Phone #: ext- [phone] 11/07/2019 23:28 Patient: BERKLEY LOPEZ Sex: F : 2000 Age: 19yPrimary dysmenorrheaINSTRUCTIONSDrink plenty of fluids. Do not smoke. No alcohol.Warnings: Further evaluation is necessary ([facility]CTION C[facility]TER). It is very important to follow up [...] Dispense 14 tablet.Refills: 2. Substitution permitted.[id number] [address], [place] [id number]. .Follow-up:Return to the emergency department as needed. Follow up with your healthcare provider in three even ifwell. Call for an appointment. Reason for referral: evaluation and treatment. Summary of care provided topatient via paper. Follow up with a stained glass painter in three days even if well. Call for an appointment.Reason for referral: evaluation and treatment. Summary of care provided to patient via paper.Understanding of the discharge instructions verbalized by patient. Expected course of illness, dischargeinstructions, activity level, diet, prescriptions x1, follow-up appointment and risks and benefits of treatmentre viewed with patient and understanding verbalized. Agrees to plan of care.[facility]- [facility] with: [facility], , , [address] [place], [address] Follow up in three days even if well. Call for an appointment. Reason for referral: evaluation andtreatment. Summary of care provided to patient via paper. 2 General Instructions [facility] Emergency Department [address] [place] [address] Phone #: ext- [phone] 11/07/2019 23:28 Patient: [...] the uterus (not cancer) 3 General Instructions [facility] Emergency Department [address] [place] [address] Phone #: ext- [phone] 11/07/2019 23:28 Patient: [...] or occurs between periods 4 General Instructions [facility] Emergency Department [address] [place] [address] Phone #: ext- [phone] 11/07/2019 23:28 Patient: BERKLEY LOPEZ Sex: F : 2000 Age: 19y Unusual vaginal discharge between periods Bleeding becomes heavy (soaking more than 1 pad or tampon every hour for 3 hours) Passage of pink or rodriguez tissue from the vagina [phone] [employer]. [address] [place] [address]. All rights reserved. This information is not intended as asubstitute for professional medical care. Always follow your healthcare professional's instructions. You have been given the following additional information: Painful Menstrual Periods (Dysmenorrhea)(Electronically signed by Ronda Garcia M.D. 11/08/2019 01:27) Name Value Range Interpretation Code Description Data Arianne rce(s) Supporting Document(s) ID Date Data Source [id number] 11/07/2019 11:33:00 PM EDT [facility] 1 Clinical Report - Nurses [facility] Emergency Department [address] [place] [address] Phone #: ext- [phone] 11/07/2019 23:28 Patient: BERKLEY LOPEZ Sex: F : 2000 Age: 19yTRIAGEArrived by private vehicle. Historian: patient.Triage time: 23:30 11/07/2019.Chief Complaint: PELVIC PAIN and VAGINAL BLEED.Onset. (3 days ago). ( Seen at [facility] for same, spotting this morning. This afternoon she noticed it gettingworse. Was dizzy when watching TV tonight. States that she went through 4 pads today, and has a"couple" golf ball sized clots before. Has PCOS, so her periods are irregular. States that she called margareths not scheduled a OVEREDGER follow up yet.). ( Has had 3 [...] in her back.Seizure Disorder.PCOS. --23:37 11/07/19 Jennifer Hopson R.N.ADDITIONAL SURGERIES:.Knee Surgery. 2 Clinical Report - Nurses [facility] Emergency Department [address] [place] [address], [place] [address] Phone #: ext- [phone] 11/07/2019 23:28 Patient: [...] site #2 3 Clinical Report - Nurses [facility] Emergency Department [address] [place] [address] Phone #: fvf- [phone] 11/07/2019 23:28 Patient: BERKLEY LOPEZ Sex: F : 2000 Age: 19y via IV pump. Allergies verified and confirmed 5 rights. IV patency established. IV site checked: no pain, redness, or swelling. IV flushed thoroughly pre- and post-medication administration. Information reviewed with patient including reason for taking this medication, signs of allergic reaction and precautions. Verbalizes understanding. --00:06 11/08/19 Tanner Hopson RN 00:11/08/2019 Started 25 mg of Phenergan IVPB in [...] 1000 mL. --01:16 11/08/19 Jennifer Hopson R.N. 01:11/08/19. PELVIC EXAM: Pelvic exam performed by ED physician. Assisted by one nurse. Preparation: patient placed in lithotomy position. Procedure: speculum exam. No vaginal discharge noted. No vaginal bleeding noted. Status post-procedure: she was stable. Patient tolerated the procedure. Total time of assist / procedure: 15 minutes. --01:13 11/08/19 Jennifer Hopson R.N.DISPOSITION / DISCHARGE 01:11/08/2019 Site #2 removed upon discharge. Bandage applied. --01:11/08/19 Jennifer Hopson R.N. Condition at departure: improved and stable. No learning barriers present. Follow up contact number WWW. Patient verbalized understanding. Written instructions provided in Tristanian. The patient was discharged by the physician. She was discharged home. She left ambulatory and via private vehicle. Parent driving. --01:16 11/08/19 Jennifer Hopson R.N. 01:13 11/08/19. BP: 122/81. MAP: 94. HR: 88. RR: 16. O2 saturation: 99%. Temp: 98 F. Pain level now: 05/08. --01:16 11/08/19 Jennifer Hopson R.N. Departure time: 01:11/08/2019. --01:11/08/19 Jennifer Hopson R.N. 4 Clinical Report - Nurses [facility] Emergency Department [address] [place] [address] Phone #: lad- [phone] 11/07/2019 23:28 Patient: BERKLEY LOPEZ Sex: F : 2000 Age: 19yLocked/Released at 11/08/2019 05:05 by Jennifer Hopson R.N. Name Value Range Interpretation Code Description Data Arianne rce(s) Supporting Document(s) ID Date Data Source [id number] 11/07/2019 11:33:00 PM EDT [facility] 1 Clinical Report - Physicians/Mid Levels [facility] Emergency Department [address] [place] [address] Phone #: ext- [phone] 11/07/2019 23:28 Patient: [...] or hematuria. (pt has PCOS, seen at [facility] ER 2 days ago for passing small clot, not ; today, bleeding worse, went through 4 pads w some clots and pelvic pain; her periods are irregular; V x 3 today; was suppose to f/u w OVEREDGER but no appt yet). Similar symptoms previously. Patient has had similar symptoms occasionally. Recent medical care: The patient was seen recently at another facility in the emergency department. ( seen at [facility] 2 days ago for passing blood clot, [...] Medications: 2 Clinical Report - Physicians/Mid Levels [facility] Emergency Department [address] [place] [address] Phone #: ext- [phone] 11/07/2019 23:28 Patient: BERKLEY LOPEZ Sex: F [...] 36.0) 3 Clinical Report - Physicians/Mid Levels [facility] Emergency Department [address] [place] [address] Phone #: ext- [phone] 11/07/2019 23:28 Patient: BERKLEY LOPEZ Sex: F [...] Male GFR Interprentation 20-49 yrs >60 mL/min Exhzov54-42 yrs >56 mL/min Normal 60-69 yrs >49 mL/min Normal 70-79yrs>42 mL/min Normal 80 and above >35 mL/min Normal Female GFRInterpretation 20-39 yrs >60 mL/min Normal 40-49 yrs >58 mL/minNormal 50-59 yrs >51 mL/min Normal 60-69 yrs >45 mL/min Tnuvau33-99 yrs >39 mL/min Normal 80 and above >32 mL/min NormalLipase: (DEBBI: 11/07/2019 23:37) ( [facility] 11/08/2019 00:17) Final results Test Result Flag Units (Reference) 4 Clinical Report - Physicians/Mid Levels [facility] Emergency Department [address] [place] [address] Phone #: ext- [phone] 11/07/2019 23:28 Patient: BERKLEY LOPEZ Sex: F : 2000 Age: 19y LIPASE 30 U/L (13 - 60) Beta-HCG, Qual Serum: (DEBBI: 11/07/2019 23:37) ( [facility] 11/08/2019 00:22) Final results Test Result Flag Units (Reference) HCG SERUM QUAL NEGATIVE (NORMAL: NEGAT HCG SERUM QL REENTER NEGATIVE (NORMAL: NEGAT { KIT LOT # [id number] ){ KIT EXP DATE 12/11/20 ){ PROCEDURAL CONTROL VALID ) Lactic Acid: (DEBBI: 11/07/2019 23:37) ( [facility] 11/08/2019 00:03) Final results Test Result Flag Units (Reference) LACTIC ACID 2.0 MMOL/L (0.2 - 2.2).PROGRESS AND PROCEDURESCourse of Care: 01:09 11/08/19. pt has nml speculum exam, no bleeding whatsoever; workup all in andnml, not ; probable dysmenorrhea; will refer her to SECTION CUTTER; d/c instructions given. Patient counseled in person [...] No alcohol. Warnings: Further evaluation is necessary (SECTION CUTTER). It is very important to follow up [...] worsens. 5 Clinical Report - Physicians/Mid Levels [facility] Emergency Department [address] [place] [address] Phone #: ext- [phone] 11/07/2019 23:28 Patient: BERKLEY LOPEZ Sex: F [...] Refills: 2. Substitution permitted. Pharmacy - [id number] - [address], [place] [id number]. . Follow-up: Return to the emergency department as needed. Follow up with your healthcare provider in three even if well. Call for an appointment. Reason for referral: evaluation and treatment. Summary of care provided to patient via pap er. Follow up with a stained glass painter in three days even if well. Call [...] Agrees to plan of care. Follow-up with: [facility], , , [address] [place] [address], [place], [address] Follow up in three days even if well. Call for an appointment. Reason for referral: evaluation and treatment. Summary of care provided to patient via paper.(Electronically signed by Ronda Garcia M.D. 11/08/2019 01:27) Name Value Range Interpretation Code Description Data Arianne rce(s) Supporting Document(s) ID Date Data Source [id number] 11/08/2019 12:22:00 AM EDT [facility] Name Value Range Interpretation Code Description Data [facility] rce(s) Supporting Document(s) HCG SERUM QUAL NEGATIVE NORMAL: NEGATIVE [facility] HCG SERUM QL REENTER NEGATIVE NORMAL: NEGATIVE [facility] { KIT LOT # [id number] ){ KIT EXP DATE 12/11/20 ){ PROCEDURAL CONTROL VALID ) ID Date Data Source [id number] 11/08/2019 12:19:00 AM EDT [facility] Name Value Range Interpretation Code Description Data [facility] rce(s) Supporting Document(s) CBC W/AUTOMATED DIFF [facility] COMPLETE BLOOD COUNT Leukocytes [#/volume] in Blood by Automated count 12.9 10^3/uL 4.2 - 11.0 H [facility] Erythrocytes [#/volume] in Blood by Automated count 4.69 10^6/uL 4. 20 - 5.40 [facility] Hemoglobin [Mass/volume] in Blood 13.2 g/dL 12.0 - 16.0 [facility] Hematocrit [Volume Fraction] of Blood by Automated count 39.7 % 3 7.0 - 47.0 [facility] Erythrocyte mean corpuscular volume [Entitic volume] by Auto mated count 84.6 fL 81.0 - 101 [facility] Erythrocyte mean corpuscular hemoglobin [Entitic mass] by Automated count 28.1 pg 27.0 - 34.0 [facility] Erythrocyte mean corpuscular hemoglobin concentration [Mass/volume] by Automated count 33.2 g/dL 31.0 - 36.0 [facility] Erythrocyte distribution width [Ratio] by Automated count 12.9 % 11.5 - 14.5 [facility] Platelets [#/volume] in Blood by Automated count 289 10^3/uL 150 - 45 0 [facility] Platelet mean volume [Entitic volume] in Blood by Automated count 11.2 fL 7.4 - 10.4 H [facility] Neutrophils/100 leukocytes in Blood by Automated count 53.0 % 37. 0 - 80.0 [facility] Lymphocytes/100 leukocytes in Blood by Manual count 34.8 % 25.0 - 40.0 [facility] Monocytes/100 leukocytes in Blood by Automated count 8.1 % 3.0 - 8.0 H [facility] Eosinophils/100 leukocytes in Blood by Automated count 2.9 % 0.0 - 7.0 [facility] Basophils/100 leukocytes in Blood by Automated count 0.8 % 0.0 - 2.5 [facility] %IG 0.4 % 0.0 - 0.[address] [facility] %NRBC 0.0 % 0.0 - 0.0 [facility] al Neutrophils [#/volume] in Blood by Automated count 6.85 10^3/uL 2.00 - 6.90 [facility] Lymphocytes [#/volume] in Blood by Automated count 4.49 10^3/uL 0.60 - 3.40 H [facility] Monocytes [#/volume] in Blood by Automated count 1.04 10^3/uL 0.00 - 0.90 H [facility] Eosinophils [#/volume] in Blood by Automated count 0.38 10^3/uL 0.00 - 0.70 [facility] Basophils [#/volume] in Blood by Automated count 0.10 10^3/uL 0.00 - 0.20 [facility] #IG 0.05 10^3/uL 0.00 - 0.10 [facility] #NRBC 0.00 10^3/uL 0.00 - 0.00 [facility] MANUAL DIFF SEE BELOW [facility] ital Segmented neutrophils/100 leukocytes in Blood by Manual count 51 % 37 - 80 [facility] %LYMPH 42 % 25 - 40 H [facility] al %MONO 2 % 3 - 8 L [facility] al %EOS 5 % 0 - 7 [facility] al RBC MORPH NOT INDICATED [facility] ID Date Data Source [id number] 11/08/2019 12:16:00 AM EDT [facility] Name Value Range Interpretation Code Description Data Arianne rce(s) Supporting Document(s) Lipase [Enzymatic activity/volume] in Serum or Plasma 30 U/L 13 - 60 [facility] ID Date Data Source [id number] 11/08/2019 12:16:00 AM EDT [facility] Name Value Range Interpretation Code Description Data Arianne rce(s) Supporting Document(s) COMPREHENSIVE METABOLIC PANEL [facility] COMPREHENSIVE METABOLIC PANEL Sodium [Moles/volume] in Serum or Plasma 141 mEq/L 134 - 153 [facility] Potassium [Moles/volume] in Serum or Plasma 4.0 mEq/L 3.6 - 5.0 [facility] Chloride [Moles/volume] in Serum or Plasma 105 mEq/L 98 - 107 [facility] Carbon dioxide, total [Moles/volume] in Serum or Plasma 24 MEQ/L 22 - 30 [facility] Glucose [Mass/volume] in Serum or Plasma 87 MG/DL 65 - 110 [facility] BUN 8 MG/DL 7 - 21 [facility] al Creatinine [Mass/volume] in Serum or Plasma 0.7 MG/DL 0.7 - 1.5 [facility] BUN/CREAT 11 8 - 27 [facility] Protein [Mass/volume] in Serum or Plasma 6.9 G/DL 6.3 - 8.2 [facility] Albumin [Mass/volume] in Serum or Plasma 4.7 G/DL 3.9 - 5.0 [facility] Globulin [Mass/volume] in Serum by calculation 2.2 GM/DL 2.4 - 3.2 L [facility] A/G RATIO 2.1 0.8 - 2.0 H [facility] al Calcium [Mass/volume] in Serum or Plasma 9.7 MG/DL 8.4 - 10.2 [facility] Bilirubin.total [Mass/volume] in Serum or Plasma <0.7 MG/DL 0.2 - 1.3 [facility] Alkaline phosphatase [Enzymatic activity/volume] in Serum or Plasma 102 U/L 38 - 126 [facility] Aspartate aminotransferase [Enzymatic activity/volume] in Serum or Plasma 19 U/L 5 - 40 [facility] Alanine aminotransferase [Enzymatic activity/volume] in Seru m or Plasma 22 U/L 7 - 56 [facility] Anion gap 3 in Serum or Plasma 12.0 mmol/L 8.0 - 16.0 [facility] AGE 19 yrs [facility] al NON-AA GFR >60 mL/min [facility] ital AFR AMER GFR >60 mL/min [facility] Male GFR In terprentation 20-49 [...] >32 mL/min Normal ID Date Data Source [id number] 11/08/2019 12:03:00 AM EDT [facility] Name Value Range Interpretation Code Description Data Arianne rce(s) Supporting Document(s) Lactate [Moles/volume] in Serum or Plasma 2.0 MMOL/L 0.2 - 2.2 [facility] ID Date Data Source [id number] 07/20/2019 06:38:00 PM EDT [facility] [id number], [id number], [id number], [id number], Name Value Range Interpretation Code Description Data Arianne rce(s) Supporting Document(s) IMMAT. GRAN% 0.0-0.5 Normal (applies to non-numeric res ults) [facility] ID Date Data Source 07/20/2019 06:38:00 PM EDT [facility] [id number], [id number], [id number], [id number], Name Value Range Interpretation Code Description Data Arianne rce(s) Supporting Document(s) ABSOLUTE IMMATURE GRAN 0.00-0.40 Normal (applies to non-n umeric results) [facility] ID Date Data Source 07/20/2019 06:50:00 PM EDT [facility] [id number], [id number], [id number], [id number], Name Value Range Interpretation Code Description Data Arianne rce(s) Supporting Document(s) EGFR - NON- Normal (applies to non-numeric results) [facility] >60 mL/min/1.73 EGFR - Normal (applies to non- numeric results) [facility] >60 mL/min/1.73 Potential Chronic Kidne y Disease: <60ml/min/1.73sq meters Kidney Failure: <15ml/min/1.73sq meters ID Date Data Source 07/20/2019 06:45:00 PM EDT [facility] [id number], [id number], [id number],[id number], [id number],[id number], Name Value Range Interpretation Code Description Data Arianne rce(s) Supporting Document(s) URINE RBC 0-2 Above high normal [facility] URINE WBC 0-2 Abnormal (applies to non-numeric res ults) [facility] BACTERIA FEW Abnormal (applies to non-numeric res ults) [facility] BUDDING YEAST [facility] URINE SQUAMOUS EPI [facility] MUCOUS [facility] HYALINE CASTS [facility] CALCIUM OXALATE CRYSTALS PRESENT [facility] ID Date Data Source [id number] 07/20/2019 06:50:00 PM EDT [facility] [id number], Name Value Range Interpretation Code Description Data Arianne rce(s) Supporting Document(s) LIPASE Normal (applies to non-numeric results) [facility] <300 ID Date Data Source [id number] 07/20/2019 06:50:00 PM EDT [facility] [id number], Name Value Range Interpretation Code Description Data Arianne rce(s) Supporting Document(s) SODIUM 135-146 Normal (applies to non-numeric resul ts) [facility] POTASSIUM 3.5-5.3 Normal (applies to non-numeric resul ts) [facility] CHLORIDE 98-107 Above high normal [facility] CARBON DIOXIDE 21-32 Below low normal [facility] ANION GAP 5-15 Normal (applies to non-numeric resul ts) [facility] GLUCOSE 65-99 Above high normal [facility] Reference Ranges: Normal Fasting Glucose ........65-99 MG/DL Pre-Diabetes ......100-125 MG/DL Provisional Diagnosis of Diabetes .........>125 MG/DL BUN 7-23 Normal (applies to non-numeric results) [facility] CREATININE 0.5-1.0 Normal (applies to non-numeric resul ts) [facility] BUN/CREAT RATIO [facility] CALCIUM 8.4-10.4 Normal (applies to non-numeric resul ts) [facility] TOTAL PROTEIN 6.3-8.2 Normal (applies to non-numeric re sults) [facility] ALBUMIN 3.5-5.0 Normal (applies to non-numeric resul ts) [facility] ALB/GLOB RATIO 1.1-1.8 Normal (applies to non-numeric r esults) [facility] BILIRUBIN, TOTAL 0.0-1.3 Normal (applies to non-numeric results) [facility] ALK PHOSPHATASE 38-126 Normal (applies to non-numeric results) [facility] AST (SGOT) Normal (applies to non-numeric results) [facility] <59 ALT (SGPT) 0-34 Normal (applies to non-numeric resul ts) [facility] Reference Range:Females <35Males <50 ID Date Data Source [id number] 07/20/2019 06:38:00 PM EDT [facility] [id number], Name Value Range Interpretation Code Description Data Arianne rce(s) Supporting Document(s) WBC 4.0-10.5 Above high normal [facility] RBC 4.00-5.[address] [facility] [facility] HEMOGLOBIN 12.2-15.5 Normal (applies to non-numeric resul ts) [facility] HEMATOCRIT 35.0-47.0 Normal (applies to non-numeric resul ts) [facility] MCV 77.0-100.0 Normal (applies to non-numeric resul ts) [facility] MCH 25.0-33.0 Normal (applies to non-numeric resul ts) [facility] MCHC 31.0-36.0 Normal (applies to non-numeric resul ts) [facility] RDW 12.0-17.0 Normal (applies to non-numeric resul ts) [facility] PLATELET COUNT 125-425 Normal (applies to non-numeric r esults) [facility] MPV 8.0-12.0 Normal (applies to non-numeric results) [facility] ABSOLUTE NEUT 1.4-8.4 Normal (applies to non-numeric re sults) [facility] ABSOLUTE LYMPH 1.0-4.0 Normal (applies to non-numeric r esults) [facility] ABSOLUTE MONO 0.0-1.5 Normal (applies to non-numeric re sults) [facility] ABSOLUTE EOS 0.0-0.7 Normal (applies to non-numeric res ults) [facility] ABSOLUTE BASO 0.0-0.1 Normal (applies to non-numeric re sults) [facility] NEUT% 35.0-75.0 Normal (applies to non-numeric resul ts) [facility] LYMPH% 20.0-42.0 Normal (applies to non-numeric resul ts) [facility] MONO% 0.0-15.0 Normal (applies to non-numeric resul ts) [facility] EOS% 0.0-10.0 Normal (applies to non-numeric resul ts) [facility] BASO% 0.0-2.0 Normal (applies to non-numeric resul ts) [facility] ID Date Data Source [place] 07/22/2019 07:40:00 AM EDT [facility] Name Value Range Interpretation Code Description Data Arianne rce(s) Supporting Document(s) CLEAN VOIDED URINE CULT [facility] [id number], Name: BERKLEY LOPEZBetsy Conroy: 2000 Sex: [place]# Loc Src Site [id number] VSLAB URNC 07/20/19 CLEAN VOIDED URINE CULT FINAL <10,000 CFU/mL NOA SUGGESTIVE OF UROGENITAL SKIN CONTAMINATIONKEY FOR RESULTS: - NEW RESULTATT.PHYS.: DINORAH DOOLEY LOCATION: VSLAB--ADM.DATE: 07/20/19 PATIENT : BERKLEY LOPEZ MICROBIOLOGYPRINTED: 07/22/19 07:40 REGULAR 2 PAGE: 2 of 1 1 ID Date Data Source [id number] 07/20/2019 06:41:00 PM EDT [facility] [id number], Name Value Range Interpretation Code Description Data Arianne rce(s) Supporting Document(s) URINE COLOR YELLOW Normal (applies to non-numeric resu lts) [facility] URINE APPEARANCE CLEAR Normal (applies to non-numeric results) [facility] UR SPECIFIC GRAV 1.005-1.030 Normal (applies to non-numeri c results) [facility] URINE PH 5.0-7.5 Normal (applies to non-numeric resul ts) [facility] URINE LEUKOCYTE LARGE NEGATIVE Abnormal (applies to non-numeri c results) [facility] URINE NITRITE NEGATIVE NEGATIVE Normal (applies to non-numeric re sults) [facility] URINE PROTEIN TRACE MG/DL NEGATIVE Normal (applies to non-numeric r esults) [facility] URINE GLUCOSE NORMAL MG/DL NORMAL Normal (applies to non-numeric results) [facility] URINE KETONES TRACE MG/DL NEGATIVE Normal (applies to non-numeric r esults) [facility] UR UROBILINOGEN NORMAL MG/DL Normal (applies to non-numeri c results) [facility] NORMAL URINE BILIRUBIN NEGATIVE MG/DL NEGATIVE Normal (applies to non- numeric results) [facility] URINE OCCULT BLD NEGATIVE NEGATIVE Normal (applies to non-numeric results) [facility] URINE MICROSCOPIC INDICATED Abnormal (applies to non-nume ramone results) [facility] URINE C-S REQUEST see below [facility] SPECIMEN SENT TO MICROBIOLOGY ID Date Data Source [id number] 06/29/2019 02:10:35 PM EDT Waldo Tonja florez - [facility], [facility] EXAM:XR KNEE 3 VIEWS LEFT ORDERING [...] Thank you for referring your patient to [facility]. Name Value Range Interpretation Code Description Data Arianne rce(s) Supporting Document(s) ID Date Data Source [id number] 06/18/2019 08:11:00 PM EDT [facility] PROCEDURE: ABDOMEN, 2 VIEW X-RAY ORD#:[id number] DATE: 06/18/2019 19:02 ACC#: [id number]:PROCEDURE: ABDOMEN, 2 VIEW X-RAYDATE AND TIME: 06/18/2019 7:02 PM EDTHISTORY: *Pain. Constipation. Abdominal pain.COMPARISON: NoneTECHNIQUE: 3 frontal views of the abdomen.-IMPRESSION: Nonspecific, nonobstructive bowel gas pattern. No gross free air. Large amount of stool scattered within the colon and likely the rectum. Scattered air within the colon.Lung bases are clear. No abnormal calcifications. No acute osseous abnormality is identified.DWS: [id number] CUMULATIVE S RADIOLOGY FLUOROSCOPY TIME SINCE 07/30/2009: 0 sec (=0.00 min)EXAM DATE: 06/18/2019 19:02 ORDERED BY:JOSE HAQUE FNPWILSON PACS IMAGES READ BY: KAYLA SCOTTIGNED 06/18/2019 20:09 BY KAYLA GODINEZ MD [facility] ACC#: [id number] Name Value Range Interpretation Code Description Data Arianne rce(s) Supporting Document(s) ID Date Data Source [id number] 05/26/2019 02:33:53 PM EDT Waldo Tonja florez - [facility], [facility] BERKLEY LOPEZ LPATIENT IDENTIFICATION :Practice Site: [facility] Name: BERKLEY LOPEZ LMedical Record Number: [id number] Of : 2000CHIEF COMPLAINT:patient here for c/o [...] strained her back. She has been lifting [id number] whois about 15 pounds. She has been [...] 4 mg = 1 tab(s), PRN, SubLINGUAL, [id number] EXAM:VITALS:T: 37 C (Tympanic) T: 98.6 F [...] (04/27/19)COAGULATIOND-Dimer: 450 ng/mL FEU (04/27/19)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 Spec Type: GRANTS ANALYST Swab (05/12/19)Influenza A: Negative (05/12/19)Influenza B: Negative [...] severe pain or any other severe/emergentsymptoms-go to [id number].Ordered:naproxen, 500 mg = 1 tab(s), PO (oral), bid, PRN Pain, # 30 tab(s),Maintenance, Pharmacy: [id number], 1 tab(s) PO (oral) bid,PRN:PainPOC Urine Dipstick (Clinic) 2. Low grade fever UA is essentially negative and no urinary symptoms. Patient declined urineculture. No fever inclinic.Ordered:naproxen, 500 mg = 1 tab(s), PO (oral), bid, PRN Pain, # 30 tab(s),Maintenance, Pharmacy: [id number], 1 tab(s) PO (oral) bid,PRN:PainPOC Urine [...] EmergencyRoom or call 911.Thank you for choosing [facility]. We hope you are [...] othersevere/emergent symptoms-go toER/call 911. With: DINORAH DOOLEYAddress: [facility] [address] [place] [id number]; This document was authenticated by Desiree Christina FNP FNP on 05/26/201902:33 PM Name Value Range Interpretation Code Description Data Arianne rce(s) Supporting Document(s) ID Date Data Source [id number] 05/16/2019 07:37:05 PM EDT Waldo Tonja florez - [facility], [facility] BERKLEY LOPEZ LPATIENT IDENTIFICATION :Practice Site: [facility] Name: BERKLEY LOPEZ LMedical Record Number: [id number] Of : 2000CHIEF COMPLAINT:rm 1 c/o pain [...] 4 mg = 1 tab(s), PRN, SubLINGUAL, [id number] EXAM:VITALS:T: 36.9 C (Tympanic) T: 98.4 F [...] (04/27/19)COAGULATIOND-Dimer: 450 ng/mL FEU (04/27/19)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 Spec Type: GRANTS ANALYST Swab (05/12/19)Influenza A: Negative (05/12/19)Influenza B: Negative [...] surgery / s/p fall over a vacuum flask cleaner cord todayxray; no acute findingsrestice 15 [...] rce(s) Supporting Document(s) ID Date Data Source [id number] 05/16/2019 06:29:06 PM EDT Waldo Tonja florez - [facility] EXAM:XR KNEE 3 VIEWS LEFTORDERING PROVID [...] Thank you for referring your patient to [facility]. Name Value Range Interpretation Code Description Data Arianne rce(s) Supporting Document(s) ID Date Data Source [id number] 05/13/2019 05:32:45 PM EDT Waldo Tonja florez - [facility], [facility] BERKLEY LOPEZ LHISTORY SOURCE:Patient , mother, [...] shortness of breath. [facility] and [facility] not[facility] exposed to anyone [...] 4 mg = 1 tab(s), PRN, SubLINGUAL, [id number] ODT 4 mg oral tablet, disintegrating 4 [...] Virology LATEST RESULTS HISTORICALRESULTSInflu Spec Type 05/12/19 GRANTS ANALYST Swab 04/20/18NP Swab 14:17 Influenza A 05/12/19 [...] CLINICAL BREAST EXAM:05/19/2019 COMPARISON:Breast ultrasound exams 2018, 2017 FINDINGS: RIGHT B REAST: The fibroglandular pattern [...] of each breast. OVERALL FINAL ASSESSMENTAssessment ACR [id number] 2: Benign Findings. RECOMMENDATIONNormal screening recommended according to [place] [employer] guidelines. This document has been authenticated by Harrison Molina MD on 05/01/2019 9:10AM.Thank you for referring your patient to [facility]. Signed By: Jesse LINARES, Harrison [...] [facility]. Signed By: José Ma XR [...] Thank you for referring your patient to [facility]. Signed By: WILFREDO ALBRIGHT CT Abd/Pelvis w/o All Contrast 04/03/19 14:22:17EXAM:Noncontrast CT of the abdomen and pelvis. ORDERING PROVIDER:STORE CONSULTANTTere HERNANDEZ CLINICAL HISTORY:Left lower quadrant pain. COMPARISON [...] PM.Thank you for referring your patient to [facility]. Signed By: Kit Lerma MD [...] PM.Thank you for referring your patient to [facility]. Signed By: Chidi Brody MD [...] Thank you for referring your patient to [facility]. Signed By: WILFREDO ALBRIGHTCARDIOLOGY [...] rce(s) Supporting Document(s) ID Date Data Source [id number] 05/12/2019 02:39:15 PM EDT Waldo Tonja rdes - [facility] Name Value Range Interpretation Code Description Data Arianne rce(s) Supporting Document(s) RSV Screen Negative Waldo Krishna lorraine - [facility] Respiratory Syncytial Virus Screening is performed by Nucleic Acid Amplification Testing (NAAT). ID Date Data Source [id number] 05/12/2019 02:39:04 PM EDT Waldo Tonja rdes - [facility] Name Value Range Interpretation Code Description Data Arianne rce(s) Supporting Document(s) Influenza A Negative Waldo Tonja rdes - [facility] Rapid Influenza testing performed by Nuc leic Acid Amplification Testing (NAAT) Influenza B Negative Waldo Tonja rddallin - [facility] Influ Spec Type Waldo Sarah - [facility] ID Date Data Source [id number] 05/12/2019 02:27:25 PM EDT Waldo Tonja rdes - [facility] Name Value Range Interpretation Code Description Data Arianne rce(s) Supporting Document(s) Rapid Grp A Neg Waldo Sarah - [facility] Added on by Discern Audit Strep A Neg cmt Waldo Sarah - [facility] ID Date Data Source [id number] 05/12/2019 02:27:25 PM EDT Waldo Tonja rdes - [facility] Name Value Range Interpretation Code Description Data Arianne rce(s) Supporting Document(s) Rapid Grp A Strep, Throat Negative Waldo Sarah - [facility] Rapid Group A Streptococcus Screen is pe rformed by Enzyme Immunoassay. ID Date Data Source [id number] 05/12/2019 01:42:04 PM EDT Waldojohn florez - [facility] EXAM:US EXTREMITY VENOUS LOWER LEFTORDER ING [...] Thank you for referring your patient to [facility]. Name Value Range Interpretation Code Description Data Arianne rce(s) Supporting Document(s) ID Date Data Source [id number] 05/01/2019 09:12:48 AM EST Waldojohn florez - [facility] EXAM: US BREAST BILATORDERING PROVIDER:Madhavi Montero [...] appearance of each breast.OVERALL FINAL ASSESSMENTAssessment ACR [id number] 2: Benign Findings.RECOMMENDATIONNormal screening recommended according to [place] [employer] guidelines.This document has been authenticated by Harrison Molina MD on 05/01/2019 9:10AM. Thank you for referring your patient to [facility]. Name Value Range Interpretation Code Description Data Arianne rce(s) Supporting Document(s) ID Date Data Source [id number] 04/27/2019 05:09:56 PM EST Waldo Tonja florez - [facility], [facility]Patient , previous charts reviewed, nurses notes [...] 7.1 .3 14:03 Eosinophils, auto 04/27/19 1.9 201.3 14:03 Basophils, auto 04/27/19 1.0 200.7 14:03 [...] .67 14:03 GFR-AA 04/27/19 >60 04/03/19>60 14:03 GFR-KEIL 04/27/19 >60 04/03/19>60 14:03 Calcium 04/27/19 9.2 209.4 14:03 Albumin Level 04/27/19 4.0 .0 14:03 Total Protein 04/27/19 7.6 207.6 14:03 Globulin 04/27/19 3.6 .6 14:03 Alk Phos 04/27/19 88 04/03/2088 1 4:03 AST 04/27/19 12 Low 04/03/2012 Low 14:03 ALT 04/27/19 28 04/03/2031 14:03 Bilirubin Total. 04/27/19 0.1 Low 200.3 14:03 CARDIAC ENZYMES LATEST RESULTS HISTORICALRESULTSTroponin-I 04/27/19 <0.02 11/28/18<0.02 14:03 TESTING LATEST RESULTS HISTORICALRESULTSSerum Qualitative 04/27/19 Negative 04/03/19NegativePregnancy 14:03 XR Chest 2 Views 04/27/19 14:51:03IMPRESSION:No evidence of acute pulmonary disease. This document has been authenticated by José Ma MD on 04/27/2019 2:51 PM.Thank you for referring your patient to [facility]. Signed By: José MaCARDIOLOGY [...] rce(s) Supporting Document(s) ID Date Data Source [id number] 04/27/2019 02:53:12 PM EST Waldo Tonja florez - [facility], [facility] EXAM:XR CHEST 2 VIEWSORDERING PROVIDER:Kathy MckennaCLINICAL HISTORY:Chest pain.COMPARISON STUDY:12/02/2018.TECHNIQUE:2 views.FINDINGS:The heart is normal in size. No focal pulmonary abnormality is identified.The bones and soft tissues are unremarkable.IMPRESSION: No evidence of acute pulmonary disease.This document has been authenticated by José Ma MD on 04/27/2019 2:51PM. Thank you for referring your patient to [facility]. Name Value Range Interpretation Code Description Data Arianne rce(s) Supporting Document(s) ID Date Data Source [id number] 04/27/2019 04:17:48 PM EST Waldo Tonja rdes - [facility] Name Value Range Interpretation Code Description Data Arianne rce(s) Supporting Document(s) D-Dimer 450 ng/mL FEU <=499 Waldo L ourlorraine - [facility] * Diagnosis should not be based solely o n the results of this test.Results should be interpreted in conjunction with clinical findings.Negative Predictive Value for thromboembolism for D-Dimer test results below the cut off of 500 ng/ml FEU is 98%. ID Date Data Source [id number] 04/27/2019 02:39:21 PM EST Waldo Tonja rdes - [facility] Name Value Range Interpretation Code Description Data Arianne rce(s) Supporting Document(s) Serum Qualitative Negative Waldo Sarah - [facility] ID Date Data Source [id number] 04/27/2019 02:26:23 PM EST Waldo Tonja rdes - [facility] Name Value Range Interpretation Code Description Data Arianne rce(s) Supporting Document(s) GFR-KIEL >60 mL/min/1.73m2 >=60 [facility] eGFR added on by Discern Expert.* [...] [facility] ID Date Data Source [id number] 04/27/2019 02:26:22 PM EST Waldo Tonja rdes - [facility] Name Value Range Interpretation Code Description Data Arianne rce(s) Supporting Document(s) Troponin-I <0.02 ng/mL <=0.04 Waldo Tonja rdes - [facility] Normal: <0.04 ng/mLIschemic disease: 0.04-0.10 ng/mLConsistent with AMI: > 0.10 ng/mLPatients taking Biotin supplements in excess of the daily recommended allowance, may have falsely elevated results due to interference of Biotin in the assay measurement. ID Date Data Source [id number] 04/27/2019 02:26:21 PM EST Waldo Tonja rdes - [facility] Name Value Range Interpretation Code Description Data Arianne rce(s) Supporting Document(s) Sodium Level 140 mmol/L 136-144 Waldo Lo urdes - [facility] Potassium Level 3.9 mmol/L 3.6-5.1 Waldo [facility] - [facility], [facility] Chloride 111 mmol/L 98-110 Above high normal [facility] CO2 20 mmol/L 22-32 Below low normal [facility] AGAP 9 mEq/L 4-14 Waldo Lour lorraine - [facility] Glucose Level. 114 mg/dL 65-100 Above high normal [facility] - [facility] If patient is taking either of these dominguez gs, there has been a bias identified:Sulfasalazine may cause falsely decreased resultsSulfaspyridine may cause falsely increased results BUN 11 mg/dL 8-23 Waldo Lour lorraine - [facility], [facility] Creatinine 0.67 mg/dL 0.40-1.10 Waldo Lour lorraine - [facility], [facility] Calcium 9.2 mg/dL 8.5-10.5 Waldo Lour lorraine - [facility], [facility] Total Protein 7.6 gm/dL 6.4-8.2 Waldo L ourdes - [facility], [facility] Globulin 3.6 gm/dL 1.5-3.8 Waldo Lour lorraine - [facility], [facility] Albumin Level 4.0 gm/dL 3.3-4.8 Waldo L ourdes - [facility], [facility] Bilirubin Total. 0.1 mg/dL 0.2-1.0 Below low normal [facility] Saarh - [facility], [facility] AST 12 unit/L 15-41 Below low normal [facility] - [facility] If patient is taking either of these dominguez gs, there has been a bias identified:Sulfasalazine may cause falsely decreased resultsSulfaspyridine may cause falsely decreased results Alk Phos 88 unit/L 45-117 Waldo Christenur lorraine - [facility], [facility] ALT 28 unit/L 14-54 Waldo Krishna lorraine - [facility] If patient is taking either of these dominguez gs, there has been a bias identified:Sulfasalazine may cause falsely decreased resultsSulfaspyridine may cause falsely decreased results ID Date Data Source [id number] 04/27/2019 02:07:48 PM EST Waldo Tonja rdes - [facility] Name Value Range Interpretation Code Description Data Arianne rce(s) Supporting Document(s) WBC 8.3 K/uL 4.0-10.0 Waldo Lour lorraine - [facility], [facility] RBC 4.80 Million/mcL 4.20-5.40 [facility] - [facility] Hgb 13.3 gm/dL 12.0-16.0 Waldo Lour lorraine - [facility], [facility] Hct 39.7 % 36.0-47.0 Waldo Lour lorraine - [facility], [facility] MCV 82.7 fL 82.0-98.0 Waldo Lour lorraine - [facility], [facility] MCH 27.8 pg 26.0-33.0 Waldo Lour lorraine - [facility], [facility] MCHC 33.6 gm/dL 32.0-36.0 Waldo Lour lorraine - [facility], [facility] RDW 13.8 % 11.4-14.4 Waldo Lour lorraine - [facility], [facility] Platelet 314 K/mcL 150-400 Waldo Lour lorraine - [facility], [facility] MPV 8.9 fL 7.4-10.4 Waldo Lour lorraine - [facility], [facility] ID Date Data Source [id number] 04/27/2019 02:07:48 PM EST Waldo Tonja rdes - [facility], [facility] Name Value Range Interpretation Code Description Data Arianne rce(s) Supporting Document(s) Neutrophils, auto 54.2 % 40.0-80.0 [facility] Neutrophils, absolute 4.5 K/mcL 1.5-7.7 [facility] - [facility], [facility] Lymphocytes, auto 35.8 % 15.0-40.0 [facility] - [facility] Lymphocytes, absolute 3.0 K/mcL 1.5-4.0 [facility] - [facility], [facility] Monocytes, auto 7.1 % 0.0-12.0 Waldo Sarah - [facility], [facility] Monocytes, absolute 0.6 K/mcL 0.2-1.0 Asc[facility] - [facility] Eosinophils, auto 1.9 % 0.0-5.0 [facility] Eosinophils, absolute 0.2 K/mcL 0.0-0.3 [facility] - [facility] Basophils, auto 1.0 % 0.0-2.0 [facility]do Sarah - [facility] Basophils, absolute 0.1 K/mcL 0.0-0.1 [facility] - [facility] ID Date Data Source [id number] 04/24/2019 10:34:40 AM EST Waldo Tonja rdes - [facility] EXAM:XR KNEE 1 OR 2 VIEWS [...] Thank you for referring your patient to [facility]. Name Value Range Interpretation Code Description Data Arianne rce(s) Supporting Document(s) ID Date Data Source [id number] 04/10/2019 03:08:28 PM EST Waldo Tonja rdes - [facility] BERKLEY LOPEZ is a pleasant pat ient of Dr. [...] prepped with chlorhexidine 1%. Using ultrasound assistance, [id number] Tuohy epiduralneedle was inserted towards the adductor [...] Name Value Range Interpretation Code Description Data [facility] rce(s) Supporting Document(s) ID Date Data Source [id number] 04/10/2019 03:02:28 PM EST [facility]do Tonja florez [facility] [place] ABBOTTLEY LREPORT OF OPERATION DA TE OF PROCEDURE: [...] been following her and treating this conservatively asshe was unableto undergo surgical intervention prior to [...] limb was e xsanguinated with Esmarch andtourniquet [id number] mmHg. I then began with a standard [...] DRAINS/PACKS:none This operative report was dictated using Kiwigrid software. Every attempt tocorrect verbalinaccuracies have been made.This document was authenticated by Salma Alvarado MD MD on04/10/2019 03:02 PM Name Value Range Interpretation Code Description Data Arianne rce(s) Supporting Document(s) ID Date Data Source [id number] 04/10/2019 02:41:43 PM EST Waldo Tonja florez - [facility] EXAM:XR KNEE 1 OR 2 VIEWS LEFTBENIGNO VALDIVIA:MD Salma Alvarado MDCLINICAL HISTORY:Intraoperative fluoroscopy.COMPARISON STUDY:None.TECHNIQUE:4 images. 58 seconds of fluoroscopy.FINDINGS: Fluoroscopic documentation of procedure without radiologist present. Pleasesee the operative report.IMPRESSION: Intraoperative fluoroscopy This document has been authenticated by José Ma MD on 04/10/2019 2:39PM. Thank you for referring your patient to [facility]. Name Value Range Interpretation Code Description Data Arianne rce(s) Supporting Document(s) ID Date Data Source [id number] 04/10/2019 08:12:36 PM EST Waldo Tonja florez - [facility] Name Value Range Interpretation Code Description Data Arianne rce(s) Supporting Document(s) Finger Stick Blood Sugar 95 mg/dL 65-100 Waldo [facility] - [facility] The POC Glucose meter technical range is 30 - 550 mg/dLA glucose less than 30 mg/dLwill chart as CORBY glucose greater than 550 mg/dL will display as HI ID Date Data Source [id number] 04/03/2019 04:39:33 PM EST Waldo Tonja florez - [facility] BERKLEY LOPEZ LHISTORY SOURCE:Patient and nurse's notes reviewedCHIEF COMPLAINT:Pt reports left lower abdominal pain, vomiting blood tinged fluids, and unableto urinate [id number] last night. Pt reports hx of urinary [...] 5.3 02/18/1910.9 12:55 Eosinophils, auto 04/03/19 1.3 190.9 12:55 Basophils, auto 04/03/19 0.7 .8 12:55 MACROSCOPIC LATEST RESULTS HISTORICALRESULTSUA Color 04/03/19 Yellow 11/28/18Yellow 14:01 UA Clarity 04/03/19 Clear 11/28/18Cloudy Abnormal 14:01 UA Specific [place] 04/03/19 1.027 High .029 High 14:01 UA [...] PM.Thank you for referring your patient to [facility]. Signed By: Abdi Lerma [...] rce(s) Supporting Document(s) ID Date Data Source [id number] 04/03/2019 02:24:26 PM EST Waldo Tonja florez - [facility], [facility] EXAM:Noncontrast CT of the abdomen and p rivera.ORDERING PROVIDER:DAVID Dukes FNPCLINICAL HISTORY:Left lower quadrant pain.COMPARISON STUDY:02/18/2019.TECHNIQUE: A routine [...] Thank you for referring your patient to [facility]. Name Value Range Interpretation Code Description Data Arianne rce(s) Supporting Document(s) ID Date Data Source [id number] 04/05/2019 09:25:49 AM EST Waldo Tonja florez - [facility] Name BERKLEY LOPEZ hdate 2000Sex FEMALE Age 18 yearsPatient Acct. No. [id number] ER OLLAttending ER Physician Fabrice LINARES, [facility] Physician DINORAH DOOLEYMicrobiologyS = Susceptible I = [...] Predominating PathogenPerforming Locationsf1: This test was performed at:[facility], [address] [place] [address], [facility]- Name Value Range Interpretation Code Description Data Arianne rce(s) Supporting Document(s) ID Date Data Source [id number] 04/03/2019 02:14:00 PM EST Waldo Tonja rdes - [facility] Name Value Range Interpretation Code Description Data Arianne rce(s) Supporting Document(s) UA Squamous Epithelial Cells <2 /HPF 0-5 [facility]do [facility] - [facility] Added as per Lab reflex policy GL_UA_MIC RO_AV_R_UC UA WBC w/UC 2 /HPF 0-5 Waldo Tonja rdes - [facility] UA RBC <2 /HPF 0-2 Waldo Lour lorraine - [facility] UA Mucous Absent Waldo Lour lorraine - [facility] ID Date Data Source [id number] 04/03/2019 02:07:51 PM EST Waldo Tonja rdes - [facility] Name Value Range Interpretation Code Description Data Arianne rce(s) Supporting Document(s) UA Color Yellow Waldo Lour lorraine - [facility], [facility] UA Clarity Clear Waldo Lour lorraine - [facility] UA pH 5.0 5.0-8.0 Waldo Lour lorraine - [facility] UA Specific [place] 1.027 1.005-1.025 Above high normal Waldo Sarah - [facility] UA Leuk w/uc Negative AB Waldo Lo urdes - [facility] UA Nitrite w/UC Negative Waldo Sarah - [facility] UA Blood w/UC Negative Waldo L ourdes - [facility] UA Bilirubin Negative Waldo Lo urdes - [facility] If the dipstick bilirubin results are 'P resumptive Positive' the result will be confirmed with an Ictotest due to possible interference. UA Urobilinogen Normal Waldo Sarah - [facility] UA Glucose Normal Waldo Lour lorraine - [facility] UA Ketones Negative Waldo Lour lorraine - [facility] UA Protein w/UC Negative Waldo Sarah - [facility] UA Ascorbic Acid Negative [facility] - [facility] The presence of ascorbic acid may interf ere with the detection of blood, glucose, nitrite and bilirubin on the biochemical strip. Detectable limits of >20mg/dL will reflex a microscopic exam. ID Date Data Source [id number] 04/03/2019 01:48:27 PM EST Waldo Tonja rdes - [facility] BERKLEY LOPEZ LChief Complaint: Patie nt [...] rce(s) Supporting Document(s) ID Date Data Source [id number] 04/03/2019 03:16:39 PM EST Waldo Tonja rdes - [facility] Name Value Range Interpretation Code Description Data Arianne rce(s) Supporting Document(s) Lipase Level 103 unit/L 73-393 Waldo Lo urdes - [facility] ID Date Data Source [id number] 04/03/2019 03:16:41 PM EST Waldo Tonja rdes - [facility] Name Value Range Interpretation Code Description Data Arianne rce(s) Supporting Document(s) GFR-KIEL >60 mL/min/1.73m2 >=60 [facility] - [facility] eGFR added on by Discern Expert.* [...] [facility] Sarah - [facility], [facility] ID Date Data Source [id number] 04/03/2019 03:16:39 PM EST Waldo Tonja rdes - [facility] Name Value Range Interpretation Code Description Data Arianne rce(s) Supporting Document(s) C-Reactive Protein. 1.0 mg/dL <=1.0 Asc[facility] darren Sarah - [facility], [facility] ID Date Data Source [id number] 04/03/2019 03:16:39 PM EST Waldo Tonja rdes - [facility] Name Value Range Interpretation Code Description Data Arianne rce(s) Supporting Document(s) Sodium Level 140 mmol/L 136-144 Waldo Lo urdes - [facility], [facility] Potassium Level 3.7 mmol/L 3.6-5.1 Waldo Sarah - [facility], [facility] Chloride 112 mmol/L 98-110 Above high normal [facility] - [facility], [facility] CO2 21 mmol/L 22-32 Below low normal [facility] - [facility], [facility] AGAP 7 mEq/L 4-14 Waldo Lour lorraine - [facility], [facility] Glucose Level. 148 mg/dL 65-100 Above high normal [facility] Sarah - [facility], [facility] If patient is taking either of these dominguez gs, there has been a bias identified:Sulfasalazine may cause falsely decreased resultsSulfaspyridine may cause falsely increased results BUN 13 mg/dL 8-23 Waldo Lour lorraine - [facility], [facility] Creatinine 0.67 mg/dL 0.40-1.10 Waldo Lour lorraine - [facility], [facility] Calcium 9.4 mg/dL 8.5-10.5 Waldo Lour lorraine - [facility], [facility] Total Protein 7.6 gm/dL 6.4-8.2 Waldo L ourdes - [facility], [facility] Globulin 3.6 gm/dL 1.5-3.8 Waldo Lour lorraine - [facility], [facility] Albumin Level 4.0 gm/dL 3.3-4.8 Waldo L zee - [facility], [facility] Bilirubin Total. 0.3 mg/dL 0.2-1.0 [facility] - [facility], [facility] AST 13 unit/L 15-41 Below low normal [facility] - [facility] If patient is taking either of these dominguez gs, there has been a bias identified:Sulfasalazine may cause falsely decreased resultsSulfaspyridine may cause falsely decreased results Alk Phos 89 unit/L 45-117 Waldo Krishna peters - [facility], [facility] ALT 32 unit/L 14-54 Waldo Krishna peters - [facility] If patient is taking either of these dominguez gs, there has been a bias identified:Sulfasalazine may cause falsely decreased resultsSulfaspyridine may cause falsely decreased results ID Date Data Source [id number] 04/03/2019 01:23:25 PM EST Waldo Tonja rdes - [facility] Name Value Range Interpretation Code Description Data Arianne rce(s) Supporting Document(s) Serum Qualitative Negative Waldo Sarah - [facility] ID Date Data Source [id number] 04/03/2019 01:03:11 PM EST Waldo Tonja rdes - [facility] Name Value Range Interpretation Code Description Data Arianne rce(s) Supporting Document(s) WBC 8.1 K/uL 4.0-10.0 Waldo Krishna peters - [facility], [facility] RBC 4.84 Million/mcL 4.20-5.40 [facility] - [facility], [facility] Hgb 13.3 gm/dL 12.0-16.0 Waldo Lour lorraine - [facility], [facility] Hct 40.0 % 36.0-47.0 Waldo Lour lorraine - [facility], [facility] MCV 82.7 fL 82.0-98.0 Waldo Lour lorraine - [facility], [facility] MCH 27.4 pg 26.0-33.0 Waldo Lour lorraine - [facility], [facility] MCHC 33.1 gm/dL 32.0-36.0 Waldo Lour lorraine - [facility], [facility] RDW 14.1 % 11.4-14.4 Waldo Lour lorraine - [facility], [facility] Platelet 302 K/mcL 150-400 Waldo Lour lorraine - [facility], [facility] MPV 9.2 fL 7.4-10.4 Waldo Lour lorraine - [facility], [facility] ID Date Data Source [id number] 04/03/2019 01:03:11 PM EST Waldo Tonja rdes - [facility], [facility] Name Value Range Interpretation Code Description Data Arianne rce(s) Supporting Document(s) Neutrophils, auto 58.3 % 40.0-80.0 [facility] - [facility], [facility] Neutrophils, absolute 4.7 K/mcL 1.5-7.7 Asc [facility]ion Sarah - [facility], [facility] Lymphocytes, auto 34.4 % 15.0-40.0 [facility] - [facility], [facility] Lymphocytes, absolute 2.8 K/mcL 1.5-4.0 [facility] Sarah - [facility], [facility] Monocytes, auto 5.3 % 0.0-12.0 Waldo Sarah - [facility], [facility] Monocytes, absolute 0.4 K/mcL 0.2-1.0 Ascen [facility] Sarah - [facility] Eosinophils, auto 1.3 % 0.0-5.0 [facility] - [facility] Eosinophils, absolute 0.1 K/mcL 0.0-0.3 [facility] Sarah - [facility] Basophils, auto 0.7 % 0.0-2.0 Waldo Sarah - [facility] Basophils, absolute 0.1 K/mcL 0.0-0.1 [facility] Sarah - [facility] ID Date Data Source [id number] 03/30/2019 04:42:08 PM EST Waldo Tonja rdes - [facility], [facility] BERKLEY LOPEZ LPATIENT IDENTIFICATION :[facility] LMedical Record Number: [id number] Of : 2000CHIEF COMPLAINT:rm 6 has been [...] (03/26/19)Protein Urine Dipstick POC Clinic: Negative (03/26/19)Specific [place] Dipstick POC Clinic: 1.030 (03/26/19)Urobilinogen Urine Dipstick [...] good understanding. *This note was completed using Kiwig[employer] Dictation System. Reasonable attemptshave been made tocorrect errors. [...] Name Value Range Interpretation Code Description Data [facility] rce(s) Supporting Document(s) ID Date Data Source [id number] 03/28/2019 07:35:16 AM EST Waldo Tonja florez - [facility] Name BERKLEY LOPEZ hdate 2000Sex FEMALE Age 18 yearsPatient Acct. No. [id number] LCB OLLAttending ER Physician Sandra Bowers FNPPriprinceton baptist medical center Care Physician DINORAH DOOLEYMicrobiologyS = [...] Predominating PathogenPerforming Locationsf1: This test was performed at:[facility], [address] [place] [address], [facility]- Name Value Range Interpretation Code Description Data Arianne rce(s) Supporting Document(s) ID Date Data Source [id number] 02/18/2019 05:02:53 PM EST Waldo Tonja florez - [facility] SOURCE:History is from patient I reviewed the [...] well-nourished woman who appears her stated age. [id number].HEAD: Normocephalic/atraumatic.EYES: Pupils equal round reactive to light [...] LAB RESULTS:CBC LATEST RESULTS HISTORICALRESULTSWBC 02/18/19 6.6 199.4 10:13 RBC 02/18/19 4.50 10194.96 10:13 Hgb 02/18/19 12.4 12/02/1912.6 10:13 Hct [...] 02/18/19 140 10:13 Potassium Level 02/18/19 3.6 194.0 10:13 [...] Line Final Dictated: 02/18/2019 11:05 am WILFREDO ABLRIGHT Signed (Electronic Signature): 02/18/2019 11:06 am PACS [...] rce(s) Supporting Document(s) ID Date Data Source [id number] 02/18/2019 12:31:16 PM EST Waldo Tonja florez - [facility], [facility] EXAM:CT ABD/PELVIS W/IV ONLY CONTRAST OR [...] Thank you for referring your patient to [email or web address]. Name Value Range Interpretation Code Description Data Arianne rce(s) Supporting Document(s) ID Date Data Source [id number] 02/18/2019 11:09:02 AM EST Waldo Tonja rdes - [facility], [facility] EXAM: US PELVIS TRANSVAGINAL ONLY ORDERI [...] you for referring your patient to [email or web address]. Name Value Range Interpretation Code Description Data Arianne rce(s) Supporting Document(s) ID Date Data Source [id number] 02/18/2019 10:47:32 AM EST Waldo Tonja rdes - [facility], [facility] Name Value Range Interpretation Code Description Data Arianne rce(s) Supporting Document(s) APTT 27 second(s) 24-33 Waldo Lo urdes - [facility] Suggested therapeutic range for unfracti onated Heparin is 2 to 2.5 times the mean normal value. Levels below 60 seconds may indicate insufficient anticoagulant.For therapeutic monitoring of various direct thrombin inhibitors, please refer to Micromedex or LexiComp on the [facility] Intranet. ID Date Data Source [id number] 02/18/2019 11:07:49 AM EST Waldo Tonja rdes - [facility] Name Value Range Interpretation Code Description Data Arianne rce(s) Supporting Document(s) Serum Qualitative Negative Waldo Sarah - [facility] ID Date Data Source [id number] 02/18/2019 10:46:47 AM EST Waldo Tonja rdes - [facility] Name Value Range Interpretation Code Description Data Arianne rce(s) Supporting Document(s) Lipase Level 96 unit/L 73-393 [facility] ID Date Data Source [id number] 02/18/2019 10:46:47 AM EST Waldo Tonja rdes - [facility] Name Value Range Interpretation Code Description Data Arianne rce(s) Supporting Document(s) C-Reactive Protein. 3.3 mg/dL <=1.0 Above high normal Waldo [facility] - [facility] ID Date Data Source [id number] 02/18/2019 10:46:48 AM EST Waldo Tonja rdes - [facility] Name Value Range Interpretation Code Description Data Arianne rce(s) Supporting Document(s) GFR-KIEL >60 mL/min/1.73m2 >=60 [facility] - [facility] eGFR added on by Discern Expert.* [...] [facility] - [facility], [facility] ID Date Data Source [id number] 02/18/2019 10:46:46 AM EST Waldo Tonja rdes - [facility], [facility] Name Value Range Interpretation Code Description Data Arianne rce(s) Supporting Document(s) Sodium Level 140 mmol/L 136-144 Waldo Lo urdes - [facility], [facility] Potassium Level 3.6 mmol/L 3.6-5.1 Waldo Sarah - [facility], [facility] Chloride 112 mmol/L 98-110 Above high normal [facility] - [facility], [facility] CO2 24 mmol/L 22-32 Waldo Lour lorraine - [facility], [facility] AGAP 4 mEq/L 4-14 Waldo Lour lorraine - [facility], [facility] Glucose Level. 91 mg/dL 65-100 Waldo Sarah - [facility] If patient is taking either of these dominguez gs, there has been a bias identified:Sulfasalazine may cause falsely decreased resultsSulfaspyridine may cause falsely increased results BUN 15 mg/dL 8-23 Waldo Lour lorraine - [facility], [facility] Creatinine 0.80 mg/dL 0.40-1.10 Waldo Lour lorraine - [facility], [facility] Calcium 8.9 mg/dL 8.5-10.5 Waldo Lour lorraine - [facility], [facility] Total Protein 7.1 gm/dL 6.4-8.2 Waldo L ourdes - [facility], [facility] Globulin 3.5 gm/dL 1.5-3.8 Waldo Lour lorraine - [facility] Albumin Level 3.6 gm/dL 3.3-4.8 Waldo L ourdes - [facility] Bilirubin Total. 0.4 mg/dL 0.2-1.0 [facility] - [facility], [facility] AST 11 unit/L 15-41 Below low normal [facility] Sarah - [facility] If patient is taking either of these dominguez gs, there has been a bias identified:Sulfasalazine may cause falsely decreased resultsSulfaspyridine may cause falsely decreased results Alk Phos 93 unit/L 45-117 Waldo Lour lorraine - [facility], [facility] ALT 47 unit/L 14-54 Waldo Lour lorraine - [facility] If patient is taking either of these dominguez gs, there has been a bias identified:Sulfasalazine may cause falsely decreased resultsSulfaspyridine may cause falsely decreased results ID Date Data Source [id number] 02/18/2019 10:46:46 AM EST Waldo Tonja rdes - [facility] Name Value Range Interpretation Code Description Data Arianne rce(s) Supporting Document(s) Amylase Level 28 unit/L 28-100 Waldo L laurides - [facility] ID Date Data Source [id number] 02/18/2019 10:17:55 AM EST Waldo Tonja rdes - [facility] Name Value Range Interpretation Code Description Data Arianne rce(s) Supporting Document(s) WBC 6.6 K/uL 4.0-10.0 Waldo Lour lorraine - [facility], [facility] RBC 4.50 Million/mcL 4.20-5.40 [facility] - [facility], [facility] Hgb 12.4 gm/dL 12.0-16.0 Waldo Lour lorraine - [facility], [facility] Hct 37.2 % 36.0-47.0 Waldo Lour lorraine - [facility], [facility] MCV 82.6 fL 82.0-98.0 Waldo Lour lorraine - [facility] MCH 27.5 pg 26.0-33.0 Waldo Lour lorraine - [facility], [facility] MCHC 33.3 gm/dL 32.0-36.0 Waldo Lour lorraine - [facility] RDW 13.7 % 11.4-14.4 Waldo Lour lorraine - [facility] Platelet 272 K/mcL 150-400 Waldo Lour lorraine - [facility] MPV 8.3 fL 7.4-10.4 Waldo Lour lorraine - [facility] ID Date Data Source [id number] 02/18/2019 10:17:54 AM EST Waldo Tonja rdes - [facility] Name Value Range Interpretation Code Description Data Arianne rce(s) Supporting Document(s) Neutrophils, auto 63.8 % 40.0-80.0 [facility] - [facility] Neutrophils, absolute 4.2 K/mcL 1.5-7.7 [facility] Sarah - [facility] Lymphocytes, auto 23.6 % 15.0-40.0 [facility] - [facility] Lymphocytes, absolute 1.6 K/mcL 1.5-4.0 [facility] Sarah - [facility] Monocytes, auto 10.9 % 0.0-12.0 Waldo Sarah - [facility] Monocytes, absolute 0.7 K/mcL 0.2-1.0 Ascen [facility] Sarah - [facility] Eosinophils, auto 0.9 % 0.0-5.0 [facility] - [facility] Eosinophils, absolute 0.1 K/mcL 0.0-0.3 [facility] Sarah - [facility] Basophils, auto 0.8 % 0.0-2.0 Waldo Sarah - [facility] Basophils, absolute 0.1 K/mcL 0.0-0.1 Asc[facility] Sarah - [facility] Procedure Social History Code Duration Value Status Description Data Source(s ) Alcohol intake 12/20/2019 12:00:00 AM EDT Current non-d chana of alcohol (finding) completed Current non-drinker of alcohol (finding) [facility] Tobacco use and exposure 12/20/2019 12:00:00 AM EDT Never used co mpleted Never used [facility] Smoking 12/20/2019 12:00:00 AM EDT Never smoker completed Never s [facility] 06/29/2019 12:00:00 AM EDT Patient is a current smoker, smokes every day completed Patient is a current smoker, smokes every day [facility] ( [facility]) ASSERTION 05/08/2019 12:00:00 AM EDT soda and coffee completed soda and coffee [facility] Vital Signs ID Date Data Source UNK Name Value Range Interpretation Code Description Data Source(s) Body weight Measured 240 lb 14 oz 240 lb 14 oz Waldo Sarah - [facility] 2Result Comment: Result placed secondary from kg, converted to lbs Body height 66.0 [in_i] 66.0 [in_i] Waldo Jessica koch - [facility] 1Result Comment: Result placed secondary from cm, converted to Inches Deprecated Oxygen saturation in Capillary blood by Oximetry 98 % 90-100 Normal (applies to non-numeric results) 98 % Waldo Sarah - [facility] Heart rate 100 /min 60-100 Normal (applies to non-numeric resul ts) 100 /min Waldo Sarah - [facility] Systolic blood pressure 90-140 Normal (applies t o non-numeric results) mm[Hg] Waldo Sarah - [facility] Body temperature 98.6 [degF] 97.9-99.7 Normal (applies to non-n umeric results) 98.6 [degF] Waldo Sarah - [facility] Deprecated Oxygen saturation in Capillary blood by Oximetry 97 % 90-100 Normal (applies to non-numeric results) 97 % Waldo Sarha - [facility] Respiratory rate 20 /min 14-20 Normal (applies to non-numeric results) 20 /min Waldo Sarah - [facility] Heart rate 104 /min 60-100 Above high normal 104 /min [facility] - [facility] Systolic blood pressure 90-140 Normal (applies t o non-numeric results) mm[Hg] Waldo Sarah - [facility] Body temperature 98.4 [degF] 97.9-99.7 Normal (applies to non-n umeric results) 98.4 [degF] Waldo Sarah - [facility] Body weight Measured 244 lb 8 oz 244 lb 8 oz As cension Sarah - [facility] 2Result Comment: Result placed secondary from kg, converted to lbs Body height 66.0 [in_i] 66.0 [in_i] Waldo L zee - [facility] 1Result Comment: Result placed secondary from cm, converted to Inches Deprecated Oxygen saturation in Capillary blood by Oximetry 97 % 90-100 Normal (applies to non-numeric results) 97 % Waldo Sarah - [facility] Respiratory rate 20 /min 14-20 Normal (applies to non-numeric results) 20 /min Waldo Sarah - [facility] Heart rate 104 /min 60-100 Above high normal 104 /min [facility] - [facility] Systolic blood pressure 90-140 Normal (applies t o non-numeric results) mm[Hg] Waldo Sarah - [facility] Body temperature 98.4 [degF] 97.9-99.7 Normal (applies to non-n umeric results) 98.4 [degF] Waldo Sarah - [facility] Body weight Measured 244 lb 8 oz 244 lb 8 oz As cension Sarah - [facility] 2Result Comment: Result placed secondary from kg, converted to lbs Body height 66.0 [in_i] 66.0 [in_i] Waldo L zee - [facility] 1Result Comment: Result placed secondary from cm, converted to Inches Body mass index (BMI) [Ratio] 38.96 kg/meter(2) Overweight 38.96 kg/meter(2) [facility] Respiratory rate 18 /min 18 /min [facility] Body temperature 97.90 [degF] 97.90 [degF] Unit [facility] Heart rate 94 /min 94 /min [facility] Diastolic blood pressure 84 mm[Hg] 84 mm[Hg] [facility] Systolic blood pressure 138 mm[Hg] 138 mm[Hg] U [facility] Body weight Measured 241.41 [lb_av] 241.41 [lb_ av] [facility] Body height 66.00 [in_us] 66.00 [in_us] [facility] Body weight Measured 241 lb 7 oz 241 lb 7 oz As cension Sarah - [facility] 2Result Comment: Result placed secondary from kg, converted to lbs Body height 66.0 [in_i] 66.0 [in_i] Waldo L zee - [facility] 1Result Comment: Result placed secondary from cm, converted to Inches Deprecated Oxygen saturation in Capillary blood by Oximetry 98 % 90-100 Normal (applies to non-numeric results) 98 % Waldo Sarah - [facility] Respiratory rate 20 /min 14-20 Normal (applies to non-numeric results) 20 /min Waldo Sarah - [facility] Heart rate 97 /min 60-100 Normal (applies to non-numeric resul ts) 97 /min Waldo Sarah - [facility] Systolic blood pressure 90-140 Normal (applies t o non-numeric results) mm[Hg] Waldo Sarah - [facility] Body temperature 98.1 [degF] 97.9-99.7 Normal (applies to non-n umeric results) 98.1 [degF] Waldo Sarah - [facility] Body weight Measured 241 lb 7 oz 241 lb 7 oz As [facility]ension Sarah - [facility] [facility] Comment: Result placed secondary from kg, converted to lbs Body height 66.0 [in_i] 66.0 [in_i] Waldo L zee - [facility] 1Result Comment: Result placed secondary from cm, converted to Inches Deprecated Oxygen saturation in Capillary blood by Oximetry 98 % 90-100 Normal (applies to non-numeric results) 98 % Waldo Sarah - [facility] Respiratory rate 20 /min 14-20 Normal (applies to non-numeric results) 20 /min Waldo Sarah - [facility] Heart rate 97 /min 60-100 Normal (applies to non-numeric resul ts) 97 /min Waldo Sarah - [facility] Systolic blood pressure 90-140 Normal (applies t o non-numeric results) mm[Hg] Waldo Sarah - [facility] Body temperature 98.1 [degF] 97.9-99.7 Normal (applies to non-n umeric results) 98.1 [degF] Waldo Sarah - [facility] Patient Treatment Plan of Care Planned Activity Planned Date Details Description Data Source (s) Flonase Allergy Relief 50 mcg/actuation nasal spray,dickinson spension 06/08/2016 12:00:00 AM EDT [facility] Previfem 0.25 mg-35 mcg tablet [facility] Lactobacillus rhamnosus GG [id number] UNT Oral Capsule [facility] trazodone 50 mg tablet Unite [facility] Hyoscyamine Sulfate 0.125 MG/ML Oral Solution [facility] Briellyn 0.4 mg-35 mcg tablet [facility] Clonazepam 1 MG Oral Tablet [facility] methylphenidate ER 50 mg multiphase capsule 30-70,extended release [facility] Metformin hydrochloride 500 MG Oral Tablet [facility]
[2020-03-15 00:39] LABS: APPEARANCE, URINE CLOUDY (CLEAR); BACTERIA, URINE AUTO NEGATIVE (NEGATIVE); BILIRUBIN, URINE AUTO NEGATIVE (NEGATIVE); BLOOD, URINE BLOOD 3+ (NEGATIVE); COLOR, URINE YELLOW (YELLOW); GLUCOSE, URINE (UA) AUTO NEGATIVE (NEGATIVE); KETONE, URINE AUTO TRACE mg/dL (NEGATIVE); LEUKOCYTE ESTERASE, URINE AUTO 2+ (NEGATIVE); MUCUS, URINE SMALL (NEGATIVE); NITRITE, URINE AUTO NEGATIVE (NEGATIVE); PROTEIN, URINE AUTO 2+ mg/dL (NEGATIVE); RBC, URINE AUTO TNTC /HPF (0-3); SPECIFIC GRAVITY URINE AUTO 1.033 (1.002-1.035); SQUAMOUS EPITHELIAL CELL UR AU 10 /HPF (0-6); WBC, URINE AUTO 30 /HPF (0-3)
[2020-03-15] MEDS ORDERED: MACR100C43 PO (01:13)
[2020-03-15] MEDS ORDERED: NITROFURANTOIN (MACROBID) 100 MG CAP PO ONE (01:15)
[2020-03-15 01:26] VITALS: BP 134/84
== END 2020-03-15 01:27 | disposition home or self-care (01) ==
LOC: M ED 23:00
DX: N39.0 Urinary tract infection, site not specified (principal); R31.9 Hematuria, unspecified; R33.9 Retention of urine, unspecified; G40.909 Epilepsy, unspecified, not intractable, without status epilepticus; F17.200 Nicotine dependence, unspecified, uncomplicated; Z88.0 Allergy status to penicillin; Z79.899 Other long term (current) drug therapy

== ENCOUNTER 2020-03-19 17:31 | Emergency (ER) | payer OTHER ==
[~2020-03-19] VITALS: Ht 167.6 cm; Wt 102.0 kg
[~2020-03-19 17:31] MED LIST changes: +MACR100C43 PO
--- OUTSIDE RECORDS SUMMARY | 2020-03-19 17:39 | CCD ---
Author Author [facility] Organization [facility] Address Unknown Phone Unavailable Care Team Providers Care Steel Chipper Name Role Phone Doris Allison Unavailable PROBLEMS No Information ALLERGIES Allergen (clinical drug ingredient) Drug/Non Drug Allergy do cumented on EMR Reaction Allergy Type Onset Date Status Penicillin (For Allergies Use Only) Anaphylaxis Drug Aller gy Active ENCOUNTERS from 1999 to 2020-03-14 Encounter Location Date Provider Diagnosis [address] [id number] Mar, Doris Allison IMMUNIZATIONS No Information SOCIAL HISTORY Sex Assigned At : Social History Observation Description Sex Assigned At Unknown REASON FOR REFERRAL No Information VITAL SIGNS No information MEDICATIONS Medication SIG (Take, Route, Frequency, Duration) Notes Start Da te End Date Status Iron 28 MG 1 tablet Orally Once a day for 30 day(s) Active Keppra 500 MG 1 tablet Orally once a day Active PROCEDURES No Information RESULTS No Results REASON FOR VISIT dukes removal MEDICAL (GENERAL) HISTORY Type Description Date Surgical History Surgical History left knee Hospitalization History surgery Goals Section No Information Health Concerns No Information MEDICAL EQUIPMENT No Information MENTAL STATUS No Information FUNCTIONAL STATUS No Information ASSESSMENTS No Information PLAN OF TREATMENT Next Appt Details Provider Name:Endy Rodriguez, 2020-03-20 0 8:30:00 AM, [address] [place] [address], [place], [address], Insurance Providers Payer Name Payer Address Payer Phone Insured Name Patient Relati onship to Insured Coverage Start Date Coverage End Date OTHER1 [employer] self
[2020-03-19] MEDS ORDERED: IRON27TA2 PO (17:40)
--- OUTSIDE RECORDS SUMMARY | 2020-03-19 17:40 | CCD ---
Author Author [facility] Organization [facility] Address Unknown Phone Unavailable Care Team Providers Care Water Meter Mechanic Name Role Phone CAM PRINCE MD Unavailable [...] GINZBURG, CAM MD Unavailable Unavailable GINZROSALIO CAM Unavailable [...] Unavailable Rigoberto-Lisa, A Nilton DO Unavailable Unavailable SIRUCHDARRYN, HALEY Unavailable Unavailable Kathy WIN Unavailable Unavailable Theron DOBSON Unavailable Unavailable Kathy GONZALEZ Unavailable Unavailable Tere Mckenna MD Unavailable Unavailable Tere Mckenna MD Unavailable Unavailable Tere Mckenna MD Unavailable Unavailable CROWDER, ANANYA DO Unavailable Unavailable CROWDER, ANANYA DO Unavailable Unavailable CROWDER, ANANYA DO Unavailable Unavailable CROWDER, ANANYA DO Unavailable Unavailable CROWDER, ANANYA DO Unavailable Unavailable Provider Pending, [facility] Shamar Combs MD Unavailable Un available Toñito Avina MD Unavailable Unavailable Toñito Avina MD Unavailable Unavailable TAHIRA NEAL Unavailable Unavailable DESEAN LINARES, Physician Maryann ORTIZ Unavailable Unavailable JIGNESH ELLIS MD Unavailable Unavailable JIGNESH ELLIS MD Unavailable Unavailable [place], Desiree DIRECTOR OF THE BIOPHYSICS FACILITY Unavailable Unavailable [place], Desiree DIRECTOR OF THE BIOPHYSICS FACILITY Unavailable Unavailable [place], Desiree DIRECTOR OF THE BIOPHYSICS FACILITY Unavailable Unavailable [place], Desiree DIRECTOR OF THE BIOPHYSICS FACILITY Unavailable Unavailable [place], Desiree DIRECTOR OF THE BIOPHYSICS FACILITY Unavailable Unavailable NON, PHYSICIAN STAFF Unavailable Unavailable [...] Unavailable Juarez, W Best Unavailable Unavailable MEDENT_[id number], [id number] Unavailable MEDENT_8436, [id number] Unavailable MEDENT_8436, [id number] Unavailable MEDENT_8436, [id number] Unavailable MEDENT_8436, [id number] Unavailable MEDENT_8436, [id number] Unavailable [facility]ENT_8436, [id number] Unavailable [facility]_[id number], [id number] Unavailable MEDENT_[id number], [id number] Unavailable Theron Fuller MD Unavailable Unavailable Theron [...] is protected by Article 27-F of the [facility] Public Health law. If you continue you may have access to information: Regarding HIV / AIDS; Provided by facilities licensed or operated by the [facility] Office of Mental Health; or Provided by the [facility] Office for People With Developmental Disabilities. If such information is present, then the following [facility] mandated warning applies: This information has been [...] law may result in a fine or longterm sentence or both. A general authorization for the release of medical or other information is NOT sufficient authorization for further disc losure. Family History Family Member Name Family Member Gender Family Member Status Date o f Status Description Data Source(s) Unknown Male Diagnosis 11/07/2014 12:00:00 AM EDT [facility] Encounters Encounter Providers Location Date Indications Data Source(s ) Unknown [address] [facility] [address] 03/14/2020 12:00:00 AM [place] [address] ([facility]) Outpatient Attender: CAM PRINCE MD 02/21/2020 12:00: 00 AM [facility] Outpatient Attender: CAM PRINCE MD [id number] 12:00:00 AM EDT - 12/20/2019 03:38:04 PM EDT [facility] Emergency Attender: RONDA GARCIAConsultant: STAFF NON 11/07/2019 11:33:00 PM EDT - 11/08/2019 01:19:00 AM EDT [facility] Patient discharged. Outpatient 07/20/2019 06:39:00 PM EDT [facility] Outpatient Attender: REBEKAH CHAUHAN MD MDAdmitt er: REBEKAH CHAUHAN MD, MD [facility] 07/18/2019 10:30:00 AM EDT TELEPHONE discuss surgery [facility] TELEPHONE discuss surgery [facility] ENT/Facial Plastic Surgery 0 07/18/2019 10:30:00 AM EDT - 07/18/2019 10:30:00 AM EDT Proc/trtmt not carried out because of contraindication [facility] Proc/trtmt not carried out because of co ntraindication P Attender: SALMA CARRASCOdmitter: SALMA AGUILAR-MATTHIAS 07/11/2019 10:42:00 AM EDT [place] [facility] P Attender: LISA DOBSONAdmitter: LISA RIZZO-MATTHIAS 2019 03:14:00 PM EDT [place] [facility] Outpatient Attender: LISA DOBSONAdmitter: LISA DOBSON MATTHIAS-MATTHIAS 06/29/2019 01:18:00 PM EDT - 06/29/2019 01:18:00 PM EDT [place] [facility] [place] Patient discharged. Outpatient Attender: Wali Temple MDAdmitter: Wali casanova MD [facility] 06/18/2019 06:16:00 PM EDT - 06/18/2019 08:15:00 PM EDT [facility] Patient discharged. Outpatient Attender: SALMA CARRASCOdmitter: SALMA ALVARADO OUT-OUT 05/31/2019 12:01:00 AM EDT - 06/29/2019 11:59:00 PM EDT [place] [facility] Patient discharged. P Attender: SALMA CARRASCOdmitter: SALMA ALVARADO MATTHIAS-MATTHIAS 05/30/2019 08:44:00 AM EDT [place] [facility] [place] [facility] Outpatient Attender: SALMA CARRASCOdmitter: SALMA ALVARADO MATTHIAS-MATTHIAS 05/30/2019 08:29:00 AM EDT - 05/30/2019 08:29:00 AM EDT [place] [facility] Patient discharged. P Attender: Desiree CHERRY PAttender: PROVIDER TESTAdmitter: Desiree HERNANDEZ LCB-LCB 05/26/2019 01:33:00 PM EDT [place] [facility] [place] Outpatient Attender: HALEY ZAYASAdmitter: HALEY SERRANO LCB-LCB 05/16/2019 05:58:00 PM EDT - 05/16/2019 05:58:00 PM EDT [place] [facility] [place] [facility] Patient discharged. Outpatient Attender: HALEY FRIEDMAN ttender: PROVIDER TESTAdmitter: HALEY ZAYAS LCB-LCB 05/16/2019 05:23:00 PM EDT - 05/16/2019 05:58:00 PM EDT [place] [facility] Emergency Attender: Nilton moura DOAdmitter: Nilton Corbinerrer: Dinorah Dooley MD M/S-M/S 05/12/2019 02:05:00 PM EDT - 05/12/2019 03:05:00 PM EDT [place] [facility] Patient discharged. Emergency Attender: Nilton moura DOAdmitter: Nilton Corbinerrer: Dinorah Dooley MD ANC-ER 05/12/2019 02:05:00 PM EDT [place] [facility] Outpatient Attender: TAHIRA BELLA PAAdmitter: TAHIRA BELLA PA MATTHIAS-MATTHIAS 05/12/2019 12:53:00 PM EDT - 05/12/2019 12:53:00 PM EDT [place] [facility] [place] [facility] Patient discharged. Outpatient Attender: Best Verma r: [facility] Shamar Br Provider Pending MDAdmitter: Best CASTRO 05/08/2019 11:02:00 AM EDT [facility] OutpatientOffice/outpatient visit,est, mod [facility] 05/08/2019 11:02:00 AM EDT - 05/08/2019 11:02:00 AM EDT Intractable migraine without status migrainosus, unspecified migraine type [facility] Intractable migraine without status migr ainosus, unspecified migraine type Outpatient Attender: MADHAVI GUAJARDOdmitter: MADHAVI WIN ANC -BCC 05/01/2019 08:27:00 AM EST - 05/01/2019 08:27:00 AM EST [place] [facility] Patient discharged. Outpatient Attender: SALMA CARRASCOdmitter: SALMA ALVARADO OUT-OUT 2019 12:01:00 AM EST - 05/30/2019 11:59:00 PM EDT [place] [facility] Patient discharged. Emergency Attender: Teddy Kurtz nder: Nilton Willson DOAdmitter: Teddy Mckenna MDReferrer: Dinorah Dooley MD M/S-M/S 04/27/2019 01:15:00 PM EST - 04/27/2019 05:18:00 PM EST [place] [facility] Patient discharged. Emergency Attender: Nilton Willson DOAdmitter : Nilton Willson DO ANC-ER 04/27/2019 01:15:00 PM EST [place] [facility] [facility] Outpatient Attender: SALMA Thomas: SALMA ALVARADO OUT-OUT 04/26/2019 02:59:00 PM EST - 04/27/2019 09:13:00 AM EST [place] [facility] Patient discharged. Outpatient Attender: SALMA Bethitter: SALMA ALVARADO OUT-OUT 04/25/2019 09:15:00 AM EST - 04/29/2019 11:59:00 PM EST [place] [facility] Patient discharged. Outpatient Attender: TAHIRA Buenoitter: TAHIRA HOFFMANN MATTHIAS-MATTHIAS 04/24/2019 10:16:00 AM EST - 04/24/2019 10:16:00 AM EST [place] [facility] Patient discharged. P Attender: TAHIRA BELLA PAAvivianitter: TAHIRA HOFFMANN MATTHIAS-MATTHIAS 04/24/2019 09:00:00 AM EST [place] [facility] P Attender: SALMA Thomas: SALMA AGUILAR-MATTHIAS 04/19/2019 09:00:00 AM EST [place] [facility] Outpatient Attender: SALMA Thomas: SALMA AGUILAR-MATTHIAS 04/10/2019 07:46:00 AM EST - 04/10/2019 09:28:00 AM EST [place] [facility] Patient discharged. Outpatient Attender: SALMA Bethitter: SALMA ALVARADO ANC-NICKOLAS 04/10/2019 05:00:00 AM EST - 04/10/2019 07:00:00 PM EST [place] [facility] Patient discharged. Outpatient Attender: SALMA CARRASCO dmitter: SALMA Alemanultant: Physician DIANA ANTON MD ANC-NICKOLAS 04/10/2019 05:00:00 AM EST - 04/10/2019 07:00:00 PM EST [place] [facility] P Attender: SALMA Bethitter: SALMA ALVARADO ANC-NICKOLAS 04/10/2019 04:00:00 AM EST [place] [facility] P Attender: SALMA Bethitter: SALMA ALVARADO PAT-PAT 04/05/2019 04:00:00 AM EST [place] [facility] P Attender: SALMA Bethitter: SALMA ALVARADO MATTHIAS-MATTHIAS 04/04/2019 01:50:00 PM EST [place] [facility] Outpatient Attender: [id number] [facility] Main Office 04/04/2019 11:45:00 AM EST [facility] ([facility] ) Outpatient Attender: SALMA Bethitter: SALMA ALVARADO MATTHIAS-MATTHIAS 04/04/2019 09:52:00 AM EST - 04/04/2019 09:52:00 AM EST [place] [facility] Patient discharged. Emergency Attender: Toñito Hernandez ter: Toñito Avina MDReferrer: Dinorah Dooley MD M/S-M/S 04/03/2019 12:15:00 PM EST - 04/03/2019 05:20:00 PM EST [place] [facility] Patient discharged. Emergency Attender: Toñito Hernandez ter: Toñito Avina MDReferrer: Dinorah Dooley MD ANC-ER 04/03/2019 12:15:00 PM EST - 04/03/2019 05:20:00 PM EST [place] [facility] P Attender: MADHAVI GUAJARDOdmitter: MADHAVI WIN ANC -BCC 03/28/2019 04:00:00 AM EST [place] [facility] Outpatient Attender: PROVIDER TESTAdmitter: PROVIDER TEST Jessica CB-LCB 03/26/2019 11:11:00 AM EST - 03/26/2019 12:11:00 PM EST [place] [facility] Patient discharged. Outpatient Attender: ZEE GONZALEZAttender: PROVIDER TESTAdmitter: ZEE ABDALLA-B 03/26/2019 10:11:00 AM EST - 03/26/2019 12:11:00 PM EST [place] [facility] Outpatient Attender: ZEE GONZALEZAttender: PROVIDER TESTAdmitter: ZEE ARELLANOB-LCB 03/26/2019 10:11:00 AM EST - 03/27/2019 11:59:59 PM EST [place] [facility] Emergency Attender: Atilio Fuller MDAdmitter: Atilio stahl MD M/S-M/S 02/18/2019 09:11:00 AM EST - 02/18/2019 02:08:00 PM EST [place] [facility] Patient discharged. Emergency Attender: Atilio Fuller MDAdmitter: Atilio stahl MD ANC-ER 02/18/2019 09:11:00 AM EST [place] [facility] Outpatient [facility] 01/27/2019 02:52:00 PM EST - 019 12:00:00 AM EDT [facility] Patient discharged. [facility] [employer] [facility] [employer] [facility] 1 03/29/2018 02:48:00 PM EST - 01/27/2019 02:48:00 PM [facility] Emergency Attender: ANANYA OMALLEY ttender: Nilton Willson DOAdmitter: ANANYARoxana CROWDER DOReferrer: Dinorah Dooley MD M/S-M/S 12/03/19 02:43:00 PM EDT - 12/02/2018 07:06:00 PM EDT [place] [facility] Patient discharged. Emergency Attender: JIGNESH ELLIS MDAt tender: Atilio Fuller MDAdmitter: JIGNESH MORTENSENMA MDReferrer: Dinorah Dooley MD M/S-M/S 11/28/2018 01:55 :00 PM EDT - 11/28/2018 06:46:00 PM EDT [place] [facility] Patient discharged. Medications Medication Brand Name Start Date Product Form Dose Route Admi nistrative Instructions Pharmacy Instructions Status Indications Reaction Description Data Source(s) Diclofenac Sodium 50 MG Delayed Release Oral Tablet Diclofen ac Sodium 06/29/2019 12:00:00 AM EDT ORAL active M [facility] ([facility]) naproxen 500 mg oral tablet 05/26/2019 02:15:00 PM EDT 5 00.0 By Mouth completed 500 mg = 1 tab(s), P O (oral), bid, PRN Pain, # 30 tab(s), Maintenance, Pharmacy: [facility]/pharmacy #[id number], 1 tab(s) PO (oral) bid,PRN:Pain [place] [facility] naproxen 500 mg oral tablet 05/26/2019 02:15:00 PM EDT 5 00.0 By Mouth completed 500 mg = 1 tab(s), P O (oral), bid, PRN Pain, # 30 tab(s), Maintenance, Pharmacy: [id number], 1 tab(s) PO (oral) bid,PRN:Pain [place] [facility] naproxen 500 mg oral tablet 05/26/2019 02:15:00 PM EDT 5 00.0 By Mouth completed 500 mg = 1 tab(s), P O (oral), bid, PRN Pain, # 30 tab(s), Maintenance, Pharmacy: [facility]/pharmacy #[id number], 1 tab(s) PO (oral) bid,PRN:Pain [place] [facility] naproxen 500 mg oral tablet 05/26/2019 02:15:00 PM EDT 5 00.0 By Mouth completed 500 mg = 1 tab(s), P O (oral), bid, PRN Pain, # 30 tab(s), Maintenance, Pharmacy: [id number], 1 tab(s) PO (oral) bid,PRN:Pain [place] [facility] Zofran 4 mg oral tablet 05/12/2019 02:44:00 PM EDT 4.0 Under your Tongue completed 4 mg = 1 tab(s), SubLINGUAL, q6hr, PRN for Nausea or Vomiting, # 9 tab(s), 0 Refill(s), Maintenance, Pharmacy: [id number], 1 tab(s) SubLINGUAL q6hr,x3 day(s),PRN:for Nausea or Vomiting [place] [facility] Zofran 4 mg oral tablet 05/12/2019 02:44:00 PM EDT 4.0 Under your Tongue completed 4 mg = 1 tab(s), SubLINGUAL, q6hr, PRN for Nausea or Vomiting, # 9 tab(s), 0 Refill(s), Maintenance, Pharmacy: [id number], 1 tab(s) SubLINGUAL q6hr,x3 day(s),PRN:for Nausea or Vomiting [place] [facility] Zofran 4 mg oral tablet 05/12/2019 02:44:00 PM EDT 4.0 Under your Tongue completed 4 mg = 1 tab(s), SubLINGUAL, q6hr, PRN for Nausea or Vomiting, # 9 tab(s), 0 Refill(s), Maintenance, [facility]acy: [id number], 1 tab(s) SubLINGUAL q6hr,x3 day(s),PRN:for Nausea or Vomiting [place] [facility] Zofran 4 mg oral tablet 05/12/2019 02:44:00 PM EDT 4.0 Under your Tongue completed 4 mg = 1 tab(s), SubLINGUAL, q6hr, PRN for Nausea or Vomiting, # 9 tab(s), 0 Refill(s), Maintenance, Pharmacy: [facility]/pharmacy #[id number], 1 tab(s) SubLINGUAL q6hr,x3 day(s),PRN:for Nausea or Vomiting [place] [facility], [facility] Zofran 4 mg oral tablet 05/12/2019 02:44:00 PM EDT 4.0 Under your Tongue completed 4 mg = 1 tab(s), SubLINGUAL, q6hr, PRN for Nausea or Vomiting, # 9 tab(s), 0 Refill(s), Maintenance, Pharmacy: [facility]/pharmacy #[id number], 1 tab(s) SubLINGUAL q6hr,x3 day(s),PRN:for Nausea or Vomiting [place] [facility], [facility] Zofran ODT 4 mg oral tablet, disintegrating 04/27/2019 05: 08:00 PM EST 4.0 By Mouth completed 4 mg = 1 tab(s ), PO (oral), tid, PRN Nausea, # 9 tab(s), Maintenance, Pharmacy: [facility]/pharmacy #[id number], 1 tab(s) PO (oral) tid,PRN:Nausea [place] [facility], [facility] Zofran ODT 4 mg oral tablet, disintegrating 04/27/2019 05: 08:00 PM EST 4.0 By Mouth completed 4 mg = 1 tab(s ), PO (oral), tid, PRN Nausea, # 9 tab(s), Maintenance, Pharmacy: [facility]/pharmacy #[id number], 1 tab(s) PO (oral) tid,PRN:Nausea [place] [facility], [facility] Zofran ODT 4 mg oral tablet, disintegrating 04/27/2019 05: 08:00 PM EST 4.0 By Mouth completed 4 mg = 1 tab(s ), PO (oral), tid, PRN Nausea, # 9 tab(s), Maintenance, Pharmacy: [facility]/pharmacy #[id number], 1 tab(s) PO (oral) tid,PRN:Nausea [place] [facility] [place] [facility], [facility] Zofran ODT 4 mg oral tablet, disintegrating 04/27/2019 05: 08:00 PM EST 4.0 By Mouth completed 4 mg = 1 tab(s ), PO (oral), tid, PRN Nausea, # 9 tab(s), Maintenance, Pharmacy: [facility]/pharmacy #[id number], 1 tab(s) PO (oral) tid,PRN:Nausea [place] [facility] [place] [facility], [facility] Zofran ODT 4 mg oral tablet, disintegrating 04/27/2019 05: 08:00 PM EST 4.0 By Mouth completed 4 mg = 1 tab(s ), PO (oral), tid, PRN Nausea, # 9 tab(s), Maintenance, Pharmacy: [facility]/pharmacy #[id number], 1 tab(s) PO (oral) tid,PRN:Nausea [place] [facility] [place] [facility], [facility] Zofran ODT 4 mg oral tablet, disintegrating 04/27/2019 05: 08:00 PM EST 4.0 By Mouth completed 4 mg = 1 tab(s ), PO (oral), tid, PRN Nausea, # 9 tab(s), Maintenance, Pharmacy: [facility]/pharmacy #[id number], 1 tab(s) PO (oral) tid,PRN:Nausea [place] [facility] [place] [facility], [facility] Omeprazole omeprazole 40 mg oral delayed release capsu le omeprazole 40 mg oral delayed release capsule 04/27/2019 05:00:00 PM EST 40.0 By Mouth completed 40 mg = 1 cap(s), PO (oral), qDay, # 90 cap(s), Maintenance, Pharmacy: [facility]/pharmacy #[id number], 1 cap(s) PO (oral) qDay [place] [facility] [place] [facility], [facility] Omeprazole omeprazole 40 mg oral delayed release capsu le omeprazole 40 mg oral delayed release capsule 04/27/2019 05:00:00 PM EST 40.0 By Mouth completed 40 mg = 1 cap(s), PO (oral), qDay, # 90 cap(s), Maintenance, Pharmacy: [facility]/pharmacy #[id number], 1 cap(s) PO (oral) qDay [place] [facility], [facility] Omeprazole omeprazole 40 mg oral delayed release capsu le omeprazole 40 mg oral delayed release capsule 04/27/2019 05:00:00 PM EST 40.0 By Mouth completed 40 mg = 1 cap(s), PO (oral), qDay, # 90 cap(s), Maintenance, Pharmacy: [facility]/pharmacy #[id number], 1 cap(s) PO (oral) qDay [place] [facility], [facility] Omeprazole omeprazole 40 mg oral delayed release capsu le omeprazole 40 mg oral delayed release capsule 04/27/2019 05:00:00 PM EST 40.0 By Mouth completed 40 mg = 1 cap(s), PO (oral), qDay, # 90 cap(s), Maintenance, [id number], 1 cap(s) PO (oral) qDay [place] [facility], [facility] Omeprazole omeprazole 40 mg oral delayed release capsu le omeprazole 40 mg oral delayed release capsule 04/27/2019 05:00:00 PM EST 40.0 By Mouth completed 40 mg = 1 cap(s), PO (oral), qDay, # 90 cap(s), Maintenance, [id number], 1 cap(s) PO (oral) qDay [place] [facility], [facility] Omeprazole omeprazole 40 mg oral delayed release capsu le omeprazole 40 mg oral delayed release capsule 04/27/2019 05:00:00 PM EST 40.0 By Mouth completed 40 mg = 1 cap(s), PO (oral), qDay, # 90 cap(s), Maintenance, Pharmacy: [facility]/pharmacy #[id number], 1 cap(s) PO (oral) qDay [facility], [facility] medroxyPROGESTERone 150 mg/mL intramuscular suspension 04/27/2019 04:13:00 PM EST 150.0 IntraMUSCULAR completed 150 mg =, IM, Maintenance [place] [facility], [facility] Morphine Sulfate 15 MG Oral Tablet Morphine Sulfate 04/11/2019 1 2:00:00 AM EST ORAL completed [facility] ([facility]) acetaminophen-oxyCODONE 325 mg-5 mg oral tablet 2019 12:18:00 PM EST 1.0 By Mouth completed 1 tab(s), PO (oral), q4h, PRN Moderate Pain (4- 6), # 20 tab(s), 0 Refill(s), Maintenance, Pharmacy: [facility]/pharmacy #[id number], 1 tab(s) PO (oral) q4h,PRN:Moderate Pain (4-6) [place] [facility], [facility] CeleBREX 100 mg oral capsule 04/10/2019 12:17:00 PM EST 100.0 By Mouth completed 100 mg = 1 cap(s), P O (oral), bid, # 60 cap(s), Maintenance, Pharmacy: [facility]/pharmacy #[id number], 1 cap(s) PO (oral) bid [place] [facility], [facility] docusate sodium 100 mg oral tablet 04/10/2019 12:16:00 PM EST 100.0 By Mouth completed 100 mg =, PO ( oral), qDay, # 5 tab(s), Maintenance, Pharmacy: [facility]/pharmacy #[id number], 100 mg PO (oral) qDay [place] [facility] cephalexin 500 mg oral capsule 04/10/2019 12:16:00 PM EST 500.0 By Mouth completed 500 mg = 1 cap(s ), PO (oral), q6hr, # 12 cap(s), Maintenance, Pharmacy: [facility]/pharmacy #[id number], 1 cap(s) PO (oral) q6hr [place] [facility] Zofran ODT 4 mg oral tablet, disintegrating 04/10/2019 12: 16:00 PM EST Under your Tongue completed 1 to 2 tab(s), SubLINGUAL, q8h, PRN for nausea or vomiting, # 4 tab(s), Maintenance, [id number], 1 to 2 tab(s) SubLINGUAL q8h,PRN:for nausea or vomiting [place] [facility] aspirin 325 mg oral delayed release tablet 04/10/2019 12:1 6:00 PM EST 325.0 By Mouth completed 325 mg = 1 tab (s), PO (oral), qDay, # 14 tab(s), Maintenance, Pharmacy: [facility]/pharmacy #[id number], 1 tab(s) PO (oral) qDay [place] [facility], [facility] Zofran ODT 4 mg oral tablet, disintegrating 04/03/2019 04: 37:30 PM EST Under your Tongue completed 1 to 2 tab(s), SubLINGUAL, q8h, PRN for nausea or vomiting, # 4 tab(s), Maintenance, Pharmacy: [facility]/pharmacy #[id number], 1 to 2 tab(s) SubLINGUAL q8h,PRN:for nausea or vomiting [place] [facility], [facility] Macrobid 100 mg oral capsule 03/26/2019 11:05:15 AM EST 100.0 By Mouth completed 100 mg = 1 cap(s), P O (oral), bid, # 10 cap(s), Maintenance, Pharmacy: [facility]/pharmacy #[id number], 1 cap(s) PO (oral) bid,x5 day(s) [place] [facility], [facility] Macrobid 100 mg oral capsule 03/26/2019 11:05:15 AM EST 100.0 By Mouth completed 100 mg = 1 cap(s), P O (oral), bid, # 10 cap(s), Maintenance, Pharmacy: [facility]/pharmacy #[id number], 1 cap(s) PO (oral) bid,x5 day(s) [place] [facility], [facility] Voltaren 75 mg oral enteric coated tablet 02/18/2019 01:51 :38 PM EST 75.0 By Mouth completed 75 mg = 1 tab( s), PO (oral), bid, # 20 tab(s), Maintenance, Pharmacy: [facility]/pharmacy #[id number], 1 tab(s) PO (oral) bid [place] [facility], [facility] Voltaren 75 mg oral enteric coated tablet 02/18/2019 01:51 :38 PM EST 75.0 By Mouth completed 75 mg = 1 tab( s), PO (oral), bid, # 20 tab(s), Maintenance, [facility]: [id number], 1 tab(s) PO (oral) bid [place] [facility] [place] Flonase Allergy Relief 50 mcg/actuation nasal spray,dickinson spension Fluticasone propionate 0.05 MG/ACTUAT Metered Dose Nasal [place] 06/08/2016 12:00:00 AM EDT NASAL completed Fluticason e propionate 0.05 MG/ACTUAT Metered Dose Nasal [place] [Flonase] [facility] trazodone 50 mg tablet trazodone HCl TABLET 1.00 tablet ORAL completed take 1 tablet by oral route every day at bedtime [facility] Hyoscyamine Sulfate 0.125 MG/ML Oral Nat ution HYOSCYAMINE SULFATE (unknown strength) HYOSCYAMINE SULFATE (unknown strength) ORAL completed take 1 milliliter by oral route every 4 hours as needed [facility] Previfem 0.25 mg-35 mcg tablet {21 (Ethinyl Estradiol 0.035 MG / norgestimate 0.25 MG Oral Tablet) / 7 (Inert Ingredients 1 MG Oral Tablet) } Pack TABLET 1.00 tablet ORAL completed Previfem 28 Day Pa ck [facility] Briellyn 0.4 mg-35 mcg tablet {21 (Ethinyl Estradiol 0 .035 MG / Norethindrone 0.4 MG Oral Tablet) / 7 (Inert Ingredients 1 MG Oral Tablet) } Pack TABLET 1.00 tablet ORAL completed Briellyn 28 Day Pa ck [facility] Metformin hydrochloride 500 MG Oral Tablet metformin 5 00 mg tablet metformin 500 mg tablet TABLET 1.00 tablet ORAL completed take 1 tablet by oral route 2 times every day with morning and evening meals [facility] Lactobacillus rhamnosus GG [id number] U NT Oral Capsule Culturelle 10 billion cell capsule Culturelle 10 billion cell capsule CAPSULE ORAL completed [facility] Clonazepam 1 MG Oral Tablet clonazepam 1 mg tablet clonazepam 1 mg tablet TABLET 1 tablet ORAL completed take 1 tablet by oral route 2 times every day [facility] methylphenidate ER 50 mg multiphase capsule 30-70,exte nded release methylphenidate HCl CAPSULE ORAL completed take 1 capsule by oral route every day before breakfast [facility] Insurance Providers Payer name Policy type / Coverage type Policy ID Covered green party ID Covered green party's relationship to soto Policy [place] Plan Information [employer] [id number] SP [id number] CDPHP COMMERCIAL U [id number] Self 3 [id number] [employer] [id number] CDPHP [id number] self [id number] Medicaid [id number] Self [id number] CDPHP [id number] Self [id number] MEDICAID NYS COMPUTER S JA [id number] A [id number] CDPHP COM [id number] F [id number] [facility] Organizational Contracts [id number] Self [id number] CDPHP [id number] self [id number] CDPHP COM [id number] F [id number] CDPHP COM [id number] F [id number] CDPHP Health Maintenance Organization (HMO) [id number] Family Dependent [id number] Medicaid [id number] Self [id number] CDPHP O 14 [id number] CDPHP COMMERCIAL U [id number] Self [id number] GOVERNMENTAL GENERIC B [id number] ORel [id number] MEDICAID M [id number] Self [id number] MEDICAID M [id number] Self [id number] Problems, Conditions, and Diagnoses Code Display Name Description Problem Type Effective Dates Data Source(s) 86753904 Knee pain Knee pain Problem 06/29/2019 12:00:00 AM ED T [facility] ([facility]) [id number] Nicotine dependence, cigarettes, uncompl icated Nicotine dependence, cigarettes, uncomplicated Diagnosis 11/07/2019 11:33:00 PM EDT [facility] N949 Unspecified condition associ ated with female genital organs and menstrual cycle Unspecified condition associated with fe male genital organs and menstrual cycle Diagnosis 11/07/2019 11:33:00 PM EDT [facility] N939 Abnormal uterine and vaginal bleeding, u nspecified Abnormal uterine and vaginal bleeding, unspecified Diagnosis 11/07/2019 11:33:00 PM EDT [facility] [id number] Pain in left knee Pain in left knee Diagnosis 06/29/2019 01:18:00 PM EDT [place] [facility] - [facility] Isaiah9.00 Constipation, unspecified Constipation, unspecified Di agnosis 06/22/2019 12:00:00 AM EDT [facility] [id number] Encounter for other specified surgical a ftercare Encounter for other specified surgical aftercare Diagnosis 05/30/2019 08:29:00 AM EDT [place] darrell [facility] - [facility] fever x 2 days fever x 2 days Diagnosis 05/26/2019 01:33: 00 PM EDT [place] - [facility] left knee injury left knee injury Diagnosis 05/16/2019 05 :23:00 PM EDT [place] - [facility] R509 Fever, unspecified Fever, unspecified Diagnosis 0 02:05:00 PM EDT [place] - [facility] FEVER CONGESTION N/V FEVER CONGESTION N/V Diagnosis 05/12/2019 02:05:00 PM EDT [place] - [facility] J029 Acute pharyngitis, unspecified Acute pharyngitis, unsp ecified Diagnosis 05/12/2019 02:05:00 PM EDT [place] - [facility] VAS RC VAS RC Diagnosis 05/12/2019 12:53:00 PM ED T [place] - [facility] [id number] Other specified soft tissue disorders Ot her specified soft tissue disorders Diagnosis 05/12/2019 12:53:00 PM EDT [place] - [facility] N6452 Nipple discharge Nipple discharge Diagnosis 05/01/2019 08 :27:00 AM EST [place] - [facility] N644 Mastodynia Mastodynia Diagnosis 05/01/2019 08:27:00 AM ES T [place] - [facility] [id number] Other custodial (current) drug therapy O ther custodial (current) drug therapy Diagnosis 04/27/2019 01:15:00 PM EST [place] - [facility] Z803 Family history of malignant neoplasm of breast Family history of malignant neoplasm of breast Diagnosis 04/27/2019 01:15:00 PM EST [place] - [facility] [id number] Encounter for test, result neg ative Encounter for test, result negative Diagnosis 04/27/2019 01:15:00 PM EST [place] - [facility] [id number] Personal history of nicotine dependence Personal history of nicotine dependence Diagnosis 04/27/2019 01:15:00 PM EST [place] - [facility] [id number] Other specified postprocedural states Ot her specified postprocedural states Diagnosis 04/27/2019 01:15:00 PM EST [place] - [facility] R110 Nausea Nausea Diagnosis 04/27/2019 01:15:00 PM ES T [place] - [facility] F329 Major depressive disorder, single episod e, unspecified Major depressive disorder, single episode, unspecified Diagnosis 04/27/2019 01:15:00 PM EST [place] - [facility] F419 Anxiety disorder, unspecified Anxiety disorder, unspec ified Diagnosis 04/27/2019 01:15:00 PM EST [place] - [facility] K2970 Gastritis, unspecified, without bleeding Gastritis, unspecified, without bleeding Diagnosis 04/27/2019 01:15:00 PM EST [place] - [facility] K219 Gastro-esophageal reflux disease without esophagitis Gastro-esophageal reflux disease without esophagitis Diagnosis 04/27/2019 01:15:00 PM ES T [place] - [facility] CHILLS/VOMITING/CHEST CONGESTION/PAIN CHILLS/VOM ITING/CHEST CONGESTION/PAIN Diagnosis 04/27/2019 01:15:00 PM EST [place] [facility] R079 Chest pain, unspecified Chest pain, unspecified Diagno sis 04/27/2019 01:15:00 PM EST [place] - [facility] [id number] Other instability, left knee Other instability, left k nee Diagnosis 04/24/2019 10:16:00 AM EST [place] - [facility] 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, 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, left knee Diagnosis 04/10/2019 07:46:00 AM EST [place] - [facility] F410 Panic disorder episodic paroxysmal an xiety Panic disorder episodic paroxysmal anxiety Diagnosis 04/10/2019 05:00:00 AM EST [place] - [facility] E282 Polycystic ovarian syndrome Polycystic ovarian syndrom e Diagnosis 04/10/2019 05:00:00 AM EST [place] - [facility] F909 Attention-deficit hyperactivity disorder , unspecified type Attention- deficit hyperactivity disorder, unspecified type Diagnosis 04/10 05:00:00 AM EST [place] - [facility] Z8041 Family history of malignant neoplasm of ovary Family history of malignant neoplasm of ovary Diagnosis 04/10/2019 05:00:00 AM EST [place] - [facility] Z880 Allergy status to penicillin Allergy status to penicil livier Diagnosis 04/10/2019 05:00:00 AM EST [place] - [facility] 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, 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, left knee Diagnosis 04/10/2019 05:00:00 AM EST [place] - [facility] MP MP Diagnosis 04/10/2019 05:00:00 AM ES T [place] - [facility] NICKOLAS NICKOLAS Diagnosis 04/10/2019 05:00:00 AM ES T [place] - [facility] M2352 Chronic instability of knee, left knee C hronic instability of knee, left knee Diagnosis 04/10/2019 05:00:00 AM EST [place] - [facility] PAT PHONE PAT PHONE Diagnosis 04/05/2019 04:00:00 AM ES T [place] - [facility] [id number] Sprain of medial collateral ligament of left knee, init Sprain of medial collateral ligament of left knee, init Diagnosis 04/04/2019 09:52:00 AM EST [place] - [facility] K589 Irritable bowel syndrome without diarrhe a Irritable bowel syndrome without diarrhea Diagnosis 04/03/2019 12:15:00 PM EST [place] - [facility] F418 Other specified anxiety disorders Other specifie d anxiety disorders Diagnosis 04/03/2019 12:15:00 PM EST [place] [facility] K2900 Acute gastritis without bleeding Acute gastritis without bleeding Diagnosis 04/03/2019 12:15:00 PM EST [place] [facility] VOMITING/ABD PAIN/UNABLE TO URINATE VOMITING/ABD PAIN/UNABLE TO URINATE Diagnosis 04/03/2019 12:15:00 PM EST [place] [facility] R1032 Left lower quadrant pain Left lower quadrant pain Diag nosis 04/03/2019 12:15:00 PM EST [place] - [facility] BCC PRESLEY BCC PRESLEY Diagnosis 03/28/2019 04:00:00 AM ES T [place] - [facility] vomitting for a week vomitting for a week Diagnosis 03/26/2019 10:11:00 AM EST [place] - [facility] N390 Urinary tract infection, site not specif ied Urinary tract infection, site not specified Diagnosis 03/26/2019 10:11:00 AM EST [place] - [facility] N946 Dysmenorrhea, unspecified Dysmenorrhea, unspecified Di agnosis 02/18/2019 09:11:00 AM EST [place] - [facility] VOMITTING/RECTAL BLEEDING VOMITTING/RECTAL BLEEDING Di agnosis 02/18/2019 09:11:00 AM EST [place] - [facility] R1030 Lower abdominal pain, unspecified Lower abdomina l pain, unspecified Diagnosis 02/18/2019 09:11:00 AM EST [place] [facility] Surgeries/Procedures Procedure Description Date Indications Data Source(s) POSTOP FOLLOW-UP VISIT POSTOP FOLLOW-UP VISIT 06/29/2019 12:00:00 A M EDT [place] - [facility] X-RAY EXAM OF KNEE 3 X-RAY EXAM OF KNEE 3 06/29/2019 12:00:00 AM ED T [place] - [facility] X-RAY EXAM OF KNEE 3 X-RAY EXAM OF KNEE 3 06/29/2019 12:00:00 AM ED T [place] - [facility] POSTOP FOLLOW-UP VISIT POSTOP FOLLOW-UP VISIT 06/29/2019 12:00:00 A M EDT [place] - [facility] X-Ray Knee Ap & Lateral W/Obliques Three Views 020 12:00:00 AM EDT [facility] ([facility]) OFFICE/OUTPATIENT VISIT EST OFFICE/OUTPATIENT VISIT EST 04/30 12:00:00 AM EDT [place] - [facility] OFFICE/OUTPATIENT VISIT EST OFFICE/OUTPATIENT VISIT EST 04/30 12:00:00 AM EDT [place] - [facility] X-RAY EXAM OF KNEE 3 X-RAY EXAM OF KNEE 3 05/16/2019 12:00:00 AM ED T [place] - [facility] OFFICE/OUTPATIENT VISIT EST OFFICE/OUTPATIENT VISIT EST 04/29 12:00:00 AM EDT [place] - [facility] X-RAY EXAM OF KNEE 3 X-RAY EXAM OF KNEE 3 05/16/2019 12:00:00 AM ED T [place] - [facility] OFFICE/OUTPATIENT VISIT EST OFFICE/OUTPATIENT VISIT EST 04/29 12:00:00 AM EDT [place] - [facility] X-RAY EXAM OF KNEE 3 X-RAY EXAM OF KNEE 3 05/16/2019 12:00:00 AM ED T [place] - [facility] X-RAY EXAM OF KNEE 3 X-RAY EXAM OF KNEE 3 05/16/2019 12:00:00 AM ED T [place] - [facility] X-RAY EXAM OF KNEE 3 X-RAY EXAM OF KNEE 3 05/16/2019 12:00:00 AM ED T [place] - [facility] RSV DNA/RNA AMP PROBE RSV DNA/RNA AMP PROBE 05/12/2019 12:00:00 AM EDT [place] - [facility] STREP A AG IA STREP A AG IA 05/12/2019 12:00:00 AM EDT [place] - [facility] EXTREMITY STUDY EXTREMITY STUDY 05/12/2019 12:00:00 AM EDT [place] - [facility] EMERGENCY DEPT VISIT EMERGENCY DEPT VISIT 05/12/2019 12:00:00 AM ED T [place] - [facility] INFLUENZA DNA AMP PROBE INFLUENZA DNA AMP PROBE 05/12/2019 12:00:00 AM EDT [place] - [facility] EMERGENCY DEPT VISIT EMERGENCY DEPT VISIT 05/12/2019 12:00:00 AM ED T [place] - [facility] RSV DNA/RNA AMP PROBE RSV DNA/RNA AMP PROBE 05/12/2019 12:00:00 AM EDT [place] - [facility] STREP A AG IA STREP A AG IA 05/12/2019 12:00:00 AM EDT [place] - [facility] INFLUENZA DNA AMP PROBE INFLUENZA DNA AMP PROBE 05/12/2019 12:00:00 AM EDT [place] - [facility] EXTREMITY STUDY EXTREMITY STUDY 05/12/2019 12:00:00 AM EDT [place] - [facility] STREP A AG IA STREP A AG IA 05/12/2019 12:00:00 AM EDT [place] - [facility] INFLUENZA DNA AMP PROBE INFLUENZA DNA AMP PROBE 05/12/2019 12:00:00 AM EDT [place] - [facility] EMERGENCY DEPT VISIT EMERGENCY DEPT VISIT 05/12/2019 12:00:00 AM ED T [place] - [facility] RSV DNA/RNA AMP PROBE RSV DNA/RNA AMP PROBE 05/12/2019 12:00:00 AM EDT [place] - [facility] EXTREMITY STUDY EXTREMITY STUDY 05/12/2019 12:00:00 AM EDT [place] - [facility] INFLUENZA DNA AMP PROBE INFLUENZA DNA AMP PROBE 05/12/2019 12:00:00 AM EDT [place] - [facility] EMERGENCY DEPT VISIT EMERGENCY DEPT VISIT 05/12/2019 12:00:00 AM ED T [place] - [facility] RSV DNA/RNA AMP PROBE RSV DNA/RNA AMP PROBE 05/12/2019 12:00:00 AM EDT [place] - [facility] STREP A AG IA STREP A AG IA 05/12/2019 12:00:00 AM EDT [place] - [facility] INFLUENZA DNA AMP PROBE INFLUENZA DNA AMP PROBE 05/12/2019 12:00:00 AM EDT [place] - [facility] EMERGENCY DEPT VISIT EMERGENCY DEPT VISIT 05/12/2019 12:00:00 AM ED T [place] - [facility] RSV DNA/RNA AMP PROBE RSV DNA/RNA AMP PROBE 05/12/2019 12:00:00 AM EDT [place] - [facility] STREP A AG IA STREP A AG IA 05/12/2019 12:00:00 AM EDT [place] - [facility] THERAPEUTIC EXERCISES THERAPEUTIC EXERCISES 05/09/2019 12:00:00 AM EDT [place] - [facility] THERAPEUTIC EXERCISES THERAPEUTIC EXERCISES 05/09/2019 12:00:00 AM EDT [place] - [facility] THERAPEUTIC EXERCISES THERAPEUTIC EXERCISES 05/09/2019 12:00:00 AM EDT [facility] Therapeutic, prophylactic, or diagnostic injection; Sub Cut/ IM 05/08/2019 12:00:00 AM EDT - 05/08/2019 12:00:00 AM EDT [facility] Toradol Inj Per 15 mg 05/08/2019 12:00:00 AM EDT - 05/08/2019 12:00:00 AM EDT [facility] Office/outpatient visit,est, mod 020 12:00:00 AM EDT - 05/08/2019 12:00:00 AM EDT [facility] THERAPEUTIC EXERCISES THERAPEUTIC EXERCISES 05/03/2019 12:00:00 AM EST [place] - [facility] THERAPEUTIC EXERCISES THERAPEUTIC EXERCISES 05/03/2019 12:00:00 AM EST [place] - [facility] THERAPEUTIC EXERCISES THERAPEUTIC EXERCISES 05/03/2019 12:00:00 AM EST [place] - [facility] OFFICE/OUTPATIENT VISIT EST OFFICE/OUTPATIENT VISIT EST 04/2019 12:00:00 AM EST [place] - [facility] OFFICE/OUTPATIENT VISIT EST OFFICE/OUTPATIENT VISIT EST 04/2019 12:00:00 AM EST [place] - [facility] ASSAY OF TROPONIN QUANT ASSAY OF TROPONIN QUANT 04/27/2019 12:00:00 AM EST [place] - [facility] CHORIONIC GONADOTROPIN ASSAY CHORIONIC GONADOTROPIN ASSAY 12:00:00 AM EST [place] - [facility] FIBRIN DEGRADATION QUANT FIBRIN DEGRADATION QUANT 04/27/2019 12:00: 00 AM EST [place] - [facility] COMPREHEN METABOLIC PANEL COMPREHEN METABOLIC PANEL 04/27/2019 1 2:00:00 AM EST [place] - [facility] EMERGENCY DEPT VISIT EMERGENCY DEPT VISIT 04/27/2019 12:00:00 AM ES T [place] - [facility] BLOOD COUNT COMPLETE AUTO&AUTO DIFRNTL WBC COUNT COMPLETE CB C W/AUTO DIFF WBC 04/27/2019 12:00:00 AM EST [place] - [facility] ELECTROCARDIOGRAM TRACING ELECTROCARDIOGRAM TRACING 04/27/2019 1 2:00:00 AM EST [place] - [facility] X-RAY EXAM CHEST 2 VIEWS X-RAY EXAM CHEST 2 VIEWS 04/27/2019 12:00: 00 AM EST [place] - [facility] ROUTINE VENIPUNCTURE ROUTINE VENIPUNCTURE 04/27/2019 12:00:00 AM ES T [place] - [facility] COMPREHEN METABOLIC PANEL COMPREHEN METABOLIC PANEL 04/27/2019 1 2:00:00 AM EST [place] - [facility] X-RAY EXAM CHEST 2 VIEWS X-RAY EXAM CHEST 2 VIEWS 04/27/2019 12:00: 00 AM EST [place] - [facility] FIBRIN DEGRADATION QUANT FIBRIN DEGRADATION QUANT 04/27/2019 12:00: 00 AM EST [place] - [facility] BLOOD COUNT COMPLETE AUTO&AUTO DIFRNTL WBC COUNT COMPLETE CB C W/AUTO DIFF WBC 04/27/2019 12:00:00 AM EST [place] - [facility] CHORIONIC GONADOTROPIN ASSAY CHORIONIC GONADOTROPIN ASSAY 12:00:00 AM EST [place] - [facility] EMERGENCY DEPT VISIT EMERGENCY DEPT VISIT 04/27/2019 12:00:00 AM ES T [place] - [facility] ROUTINE VENIPUNCTURE ROUTINE VENIPUNCTURE 04/27/2019 12:00:00 AM ES T [place] - [facility] ELECTROCARDIOGRAM TRACING ELECTROCARDIOGRAM TRACING 04/27/2019 1 2:00:00 AM EST [place] - [facility] ASSAY OF TROPONIN QUANT ASSAY OF TROPONIN QUANT 04/27/2019 12:00:00 AM EST [place] - [facility] ELECTROCARDIOGRAM TRACING ELECTROCARDIOGRAM TRACING 04/27/2019 1 2:00:00 AM EST [place] - [facility] BLOOD COUNT COMPLETE AUTO&AUTO DIFRNTL WBC COUNT COMPLETE CB C W/AUTO DIFF WBC 04/27/2019 12:00:00 AM EST [place] - [facility] EMERGENCY DEPT VISIT EMERGENCY DEPT VISIT 04/27/2019 12:00:00 AM ES T [place] - [facility] COMPREHEN METABOLIC PANEL COMPREHEN METABOLIC PANEL 04/27/2019 1 2:00:00 AM EST [place] - [facility] ROUTINE VENIPUNCTURE ROUTINE VENIPUNCTURE 04/27/2019 12:00:00 AM ES T [place] - [facility] CHORIONIC GONADOTROPIN ASSAY CHORIONIC GONADOTROPIN ASSAY 12:00:00 AM EST [place] - [facility] FIBRIN DEGRADATION QUANT FIBRIN DEGRADATION QUANT 04/27/2019 12:00: 00 AM EST [place] - [facility] X-RAY EXAM CHEST 2 VIEWS X-RAY EXAM CHEST 2 VIEWS 04/27/2019 12:00: 00 AM EST [place] - [facility] ASSAY OF TROPONIN QUANT ASSAY OF TROPONIN QUANT 04/27/2019 12:00:00 AM EST [place] - [facility] CHORIONIC GONADOTROPIN ASSAY CHORIONIC GONADOTROPIN ASSAY 12:00:00 AM EST [place] - [facility] COMPREHEN METABOLIC PANEL COMPREHEN METABOLIC PANEL 04/27/2019 1 2:00:00 AM EST [place] - [facility] BLOOD COUNT COMPLETE AUTO&AUTO DIFRNTL WBC COUNT COMPLETE CB C W/AUTO DIFF WBC 04/27/2019 12:00:00 AM EST [place] - [facility] [facility] FIBRIN DEGRADATION QUANT FIBRIN DEGRADATION QUANT 04/27/2019 12:00: 00 AM EST [place] [facility] ASSAY OF TROPONIN QUANT ASSAY OF TROPONIN QUANT 04/27/2019 12:00:00 AM EST [place] [facility] X-RAY EXAM CHEST 2 VIEWS X-RAY EXAM CHEST 2 VIEWS 04/27/2019 12:00: 00 AM EST [place] - [facility] ROUTINE VENIPUNCTURE ROUTINE VENIPUNCTURE 04/27/2019 12:00:00 AM ES T [place] - [facility] ELECTROCARDIOGRAM TRACING ELECTROCARDIOGRAM TRACING 04/27/2019 1 2:00:00 AM EST [place] [facility] EMERGENCY DEPT VISIT EMERGENCY DEPT VISIT 04/27/2019 12:00:00 AM ES T [place] - [facility] COMPREHEN METABOLIC PANEL COMPREHEN METABOLIC PANEL 04/27/2019 1 2:00:00 AM EST [place] - [facility] ROUTINE VENIPUNCTURE ROUTINE VENIPUNCTURE 04/27/2019 12:00:00 AM ES T [place] - [facility] CHORIONIC GONADOTROPIN ASSAY CHORIONIC GONADOTROPIN ASSAY 12:00:00 AM EST [place] - [facility] X-RAY EXAM CHEST 2 VIEWS X-RAY EXAM CHEST 2 VIEWS 04/27/2019 12:00: 00 AM EST [place] - [facility] FIBRIN DEGRADATION QUANT FIBRIN DEGRADATION QUANT 04/27/2019 12:00: 00 AM EST [place] [facility] ELECTROCARDIOGRAM TRACING ELECTROCARDIOGRAM TRACING 04/27/2019 1 2:00:00 AM EST [place] - [facility] ASSAY OF TROPONIN QUANT ASSAY OF TROPONIN QUANT 04/27/2019 12:00:00 AM EST [place] - [facility] EMERGENCY DEPT VISIT EMERGENCY DEPT VISIT 04/27/2019 12:00:00 AM ES T [place] - [facility] BLOOD COUNT COMPLETE AUTO&AUTO DIFRNTL WBC COUNT COMPLETE CB C W/AUTO DIFF WBC 04/27/2019 12:00:00 AM EST [place] [facility] X-RAY EXAM OF KNEE 1 OR 2 X-RAY EXAM OF KNEE 1 OR 2 04/24/2019 1 2:00:00 AM EST [place] [facility] POSTOP FOLLOW-UP VISIT POSTOP FOLLOW-UP VISIT 04/24/2019 12:00:00 A M EST [place] - [facility] X-RAY EXAM OF KNEE 1 OR 2 X-RAY EXAM OF KNEE 1 OR 2 04/24/2019 1 2:00:00 AM EST [place] [facility] POSTOP FOLLOW-UP VISIT POSTOP FOLLOW-UP VISIT 04/24/2019 12:00:00 A M EST [place] - [facility] X-Ray Knee Ap & Lateral 04/24/2019 12:00:00 AM EST [facility] ([facility]) X-RAY EXAM OF KNEE 1 OR 2 X-RAY EXAM OF KNEE 1 OR 2 04/24/2019 1 2:00:00 AM EST [place] [facility] POSTOP FOLLOW-UP VISIT POSTOP FOLLOW-UP VISIT 04/24/2019 12:00:00 A M EST [place] - [facility] X-RAY EXAM OF KNEE 1 OR 2 X-RAY EXAM OF KNEE 1 OR 2 04/24/2019 1 2:00:00 AM EST [place] [facility] POSTOP FOLLOW-UP VISIT POSTOP FOLLOW-UP VISIT 04/24/2019 12:00:00 A M EST [place] - [facility] POSTOP FOLLOW-UP VISIT POSTOP FOLLOW-UP VISIT 04/24/2019 12:00:00 A M EST [place] - [facility] X-RAY EXAM OF KNEE 1 OR 2 X-RAY EXAM OF KNEE 1 OR 2 04/24/2019 1 2:00:00 AM EST [place] - [facility] Reposition Left Knee Joint, Open Approach Reposition L eft Knee Joint, Open Approach 04/10/2019 12:00:00 AM EST [place] - [facility] REVISION OF UNSTABLE KNEECAP REVISION OF UNSTABLE KNEECAP 12:00:00 AM EST [place] - [facility] left knee reconstruction left knee reconstruction 04/10/2019 12:00: 00 AM EST [place] - [facility] RECONSTRUCTION KNEE RECONSTRUCTION KNEE 04/10/2019 12:00:00 AM EST [place] - [facility] REVISION OF UNSTABLE KNEECAP REVISION OF UNSTABLE KNEECAP 12:00:00 AM EST [place] - [facility] Reposition Left Knee Joint, Open Approach Reposition L eft Knee Joint, Open Approach 04/10/2019 12:00:00 AM EST [place] - [facility] RECONSTRUCTION KNEE RECONSTRUCTION KNEE 04/10/2019 12:00:00 AM EST [place] - [facility] REVISION OF UNSTABLE KNEECAP REVISION OF UNSTABLE KNEECAP 12:00:00 AM EST [place] - [facility] left knee reconstruction left knee reconstruction 04/10/2019 12:00: 00 AM EST [place] - [facility] REVISION OF UNSTABLE KNEECAP REVISION OF UNSTABLE KNEECAP 12:00:00 AM EST [place] - [facility] Reconstruct Patella W/Extensor Realignment/Muscle Advance/Re lease 04/10/2019 12:00:00 AM EST [facility] ([facility]) Reconstruct Patella W/Extensor Realignment/Muscle Advance/Re lease 04/10/2019 12:00:00 AM EST [facility] ([facility]) left knee reconstruction left knee reconstruction 04/10/2019 12:00: 00 AM EST [place] [facility] REVISION OF UNSTABLE KNEECAP REVISION OF UNSTABLE KNEECAP 12:00:00 AM EST [place] - [facility] RECONSTRUCTION KNEE RECONSTRUCTION KNEE 04/10/2019 12:00:00 AM EST [place] - [facility] REVISION OF UNSTABLE KNEECAP REVISION OF UNSTABLE KNEECAP 12:00:00 AM EST [place] - [facility] Reposition Left Knee Joint, Open Approach Reposition L eft Knee Joint, Open Approach 04/10/2019 12:00:00 AM EST [place] - [facility] REVISION OF UNSTABLE KNEECAP REVISION OF UNSTABLE KNEECAP 12:00:00 AM EST [place] - [facility] RECONSTRUCTION KNEE RECONSTRUCTION KNEE 04/10/2019 12:00:00 AM EST [place] - [facility] REVISION OF UNSTABLE KNEECAP REVISION OF UNSTABLE KNEECAP 12:00:00 AM EST [place] - [facility] left knee reconstruction left knee reconstruction 04/10/2019 12:00: 00 AM EST [place] - [facility] Reposition Left Knee Joint, Open Approach Reposition L eft Knee Joint, Open Approach 04/10/2019 12:00:00 AM EST [place] - [facility] left knee reconstruction left knee reconstruction 04/10/2019 12:00: 00 AM EST [place] - [facility] REVISION OF UNSTABLE KNEECAP REVISION OF UNSTABLE KNEECAP 12:00:00 AM EST [place] - [facility] REVISION OF UNSTABLE KNEECAP REVISION OF UNSTABLE KNEECAP 12:00:00 AM EST [place] - [facility] Reposition Left Knee Joint, Open Approach Reposition L eft Knee Joint, Open Approach 04/10/2019 12:00:00 AM EST [place] - [facility] RECONSTRUCTION KNEE RECONSTRUCTION KNEE 04/10/2019 12:00:00 AM EST [place] - [facility] REVISION OF UNSTABLE KNEECAP REVISION OF UNSTABLE KNEECAP 12:00:00 AM EST [place] - [facility] REVISION OF UNSTABLE KNEECAP REVISION OF UNSTABLE KNEECAP 12:00:00 AM EST [place] - [facility] Reposition Left Knee Joint, Open Approach Reposition L eft Knee Joint, Open Approach 04/10/2019 12:00:00 AM EST [place] - [facility] RECONSTRUCTION KNEE RECONSTRUCTION KNEE 04/10/2019 12:00:00 AM EST [place] - [facility] OFFICE/OUTPATIENT VISIT EST OFFICE/OUTPATIENT VISIT EST 05/2019 12:00:00 AM EST [place] - [facility] OFFICE/OUTPATIENT VISIT EST OFFICE/OUTPATIENT VISIT EST 05/2019 12:00:00 AM EST [place] - [facility] OFFICE/OUTPATIENT VISIT EST OFFICE/OUTPATIENT VISIT EST 05/2019 12:00:00 AM EST [place] - [facility] OFFICE/OUTPATIENT VISIT EST OFFICE/OUTPATIENT VISIT EST 05/2019 12:00:00 AM EST [place] - [facility] OFFICE/OUTPATIENT VISIT EST OFFICE/OUTPATIENT VISIT EST 05/2019 12:00:00 AM EST [place] - [facility] OFFICE/OUTPATIENT VISIT EST OFFICE/OUTPATIENT VISIT EST 05/2019 12:00:00 AM EST [place] - [facility] ONDANSETRON HCL INJECTION ONDANSETRON HCL INJECTION 04/03/2019 1 2:00:00 AM EST [place] - [facility] URINE CULTURE/COLONY COUNT URINE CULTURE/COLONY COUNT 2019 12:00:00 AM EST [place] - [facility] C-REACTIVE PROTEIN C-REACTIVE PROTEIN 04/03/2019 12:00:00 AM EST [place] - [facility] EMERGENCY DEPT VISIT EMERGENCY DEPT VISIT 04/03/2019 12:00:00 AM ES T [place] - [facility] CT ABD & PELVIS W/O CONTRAST CT ABD & PELVIS W/O CONTRAST 12:00:00 AM EST [place] - [facility] THER/PROPH/DIAG INJ IV PUSH THER/PROPH/DIAG INJ IV PUSH 04/2019 12:00:00 AM EST [place] - [facility] ASSAY OF LIPASE ASSAY OF LIPASE 04/03/2019 12:00:00 AM EST [place] - [facility] BLOOD COUNT COMPLETE AUTO&AUTO DIFRNTL WBC COUNT COMPLETE CB C W/AUTO DIFF WBC 04/03/2019 12:00:00 AM EST [place] [facility] ROUTINE VENIPUNCTURE ROUTINE VENIPUNCTURE 04/03/2019 12:00:00 AM ES T [place] - [facility] COMPREHEN METABOLIC PANEL COMPREHEN METABOLIC PANEL 04/03/2019 1 2:00:00 AM EST [place] - [facility] URINALYSIS AUTO W/SCOPE URINALYSIS AUTO W/SCOPE 04/03/2019 12:00:00 AM EST [place] - [facility] CHORIONIC GONADOTROPIN ASSAY CHORIONIC GONADOTROPIN ASSAY 12:00:00 AM EST [place] - [facility] Catheterize for urine spec Catheterize for urine spec 2019 12:00:00 AM EST [place] - [facility] URINALYSIS AUTO W/SCOPE URINALYSIS AUTO W/SCOPE 04/03/2019 12:00:00 AM EST [place] - [facility] EMERGENCY DEPT VISIT EMERGENCY DEPT VISIT 04/03/2019 12:00:00 AM ES T [place] - [facility] ONDANSETRON HCL INJECTION ONDANSETRON HCL INJECTION 04/03/2019 1 2:00:00 AM EST [place] - [facility] URINE CULTURE/COLONY COUNT URINE CULTURE/COLONY COUNT 2019 12:00:00 AM EST [place] - [facility] C-REACTIVE PROTEIN C-REACTIVE PROTEIN 04/03/2019 12:00:00 AM EST [place] - [facility] ROUTINE VENIPUNCTURE ROUTINE VENIPUNCTURE 04/03/2019 12:00:00 AM ES T [place] - [facility] CHORIONIC GONADOTROPIN ASSAY CHORIONIC GONADOTROPIN ASSAY 12:00:00 AM EST [place] - [facility] Catheterize for urine spec Catheterize for urine spec 2019 12:00:00 AM EST [place] - [facility] BLOOD COUNT COMPLETE AUTO&AUTO DIFRNTL WBC COUNT COMPLETE CB C W/AUTO DIFF WBC 04/03/2019 12:00:00 AM EST [place] [facility] COMPREHEN METABOLIC PANEL COMPREHEN METABOLIC PANEL 04/03/2019 1 2:00:00 AM EST [place] - [facility] CT ABD & PELVIS W/O CONTRAST CT ABD & PELVIS W/O CONTRAST 12:00:00 AM EST [place] - [facility] THER/PROPH/DIAG INJ IV PUSH THER/PROPH/DIAG INJ IV PUSH 04/2019 12:00:00 AM EST [place] - [facility] ASSAY OF LIPASE ASSAY OF LIPASE 04/03/2019 12:00:00 AM EST [place] - [facility] THER/PROPH/DIAG INJ IV PUSH THER/PROPH/DIAG INJ IV PUSH 04/2019 12:00:00 AM EST [place] - [facility] BLOOD COUNT COMPLETE AUTO&AUTO DIFRNTL WBC COUNT COMPLETE CB C W/AUTO DIFF WBC 04/03/2019 12:00:00 AM EST [place] [facility] CHORIONIC GONADOTROPIN ASSAY CHORIONIC GONADOTROPIN ASSAY 12:00:00 AM EST [place] - [facility] Catheterize for urine spec Catheterize for urine spec 2019 12:00:00 AM EST [place] - [facility] ASSAY OF LIPASE ASSAY OF LIPASE 04/03/2019 12:00:00 AM EST [place] - [facility] URINE CULTURE/COLONY COUNT URINE CULTURE/COLONY COUNT 2019 12:00:00 AM EST [place] - [facility] URINALYSIS AUTO W/SCOPE URINALYSIS AUTO W/SCOPE 04/03/2019 12:00:00 AM EST [place] - [facility] C-REACTIVE PROTEIN C-REACTIVE PROTEIN 04/03/2019 12:00:00 AM EST [place] - [facility] ROUTINE VENIPUNCTURE ROUTINE VENIPUNCTURE 04/03/2019 12:00:00 AM ES T [place] - [facility] ONDANSETRON HCL INJECTION ONDANSETRON HCL INJECTION 04/03/2019 1 2:00:00 AM EST [place] - [facility] COMPREHEN METABOLIC PANEL COMPREHEN METABOLIC PANEL 04/03/2019 1 2:00:00 AM EST [place] - [facility] CT ABD & PELVIS W/O CONTRAST CT ABD & PELVIS W/O CONTRAST 12:00:00 AM EST [place] - [facility] EMERGENCY DEPT VISIT EMERGENCY DEPT VISIT 04/03/2019 12:00:00 AM ES T [place] - [facility] BLOOD COUNT COMPLETE AUTO&AUTO DIFRNTL WBC COUNT COMPLETE CB C W/AUTO DIFF WBC 04/03/2019 12:00:00 AM EST [place] [facility] ONDANSETRON HCL INJECTION ONDANSETRON HCL INJECTION 04/03/2019 1 2:00:00 AM EST [place] - [facility] URINE CULTURE/COLONY COUNT URINE CULTURE/COLONY COUNT 2019 12:00:00 AM EST [place] - [facility] C-REACTIVE PROTEIN C-REACTIVE PROTEIN 04/03/2019 12:00:00 AM EST [place] - [facility] CHORIONIC GONADOTROPIN ASSAY CHORIONIC GONADOTROPIN ASSAY 12:00:00 AM EST [place] - [facility] ASSAY OF LIPASE ASSAY OF LIPASE 04/03/2019 12:00:00 AM EST [place] - [facility] THER/PROPH/DIAG INJ IV PUSH THER/PROPH/DIAG INJ IV PUSH 04/2019 12:00:00 AM EST [place] - [facility] Catheterize for urine spec Catheterize for urine spec 2019 12:00:00 AM EST [place] - [facility] COMPREHEN METABOLIC PANEL COMPREHEN METABOLIC PANEL 04/03/2019 1 2:00:00 AM EST [place] - [facility] URINALYSIS AUTO W/SCOPE URINALYSIS AUTO W/SCOPE 04/03/2019 12:00:00 AM EST [place] - [facility] ROUTINE VENIPUNCTURE ROUTINE VENIPUNCTURE 04/03/2019 12:00:00 AM ES T [place] - [facility] EMERGENCY DEPT VISIT EMERGENCY DEPT VISIT 04/03/2019 12:00:00 AM ES T [place] - [facility] CT ABD & PELVIS W/O CONTRAST CT ABD & PELVIS W/O CONTRAST 12:00:00 AM EST [place] - [facility] BLOOD COUNT COMPLETE AUTO&AUTO DIFRNTL WBC COUNT COMPLETE CB C W/AUTO DIFF WBC 04/03/2019 12:00:00 AM EST [place] [facility] ROUTINE VENIPUNCTURE ROUTINE VENIPUNCTURE 04/03/2019 12:00:00 AM ES T [place] - [facility] COMPREHEN METABOLIC PANEL COMPREHEN METABOLIC PANEL 04/03/2019 1 2:00:00 AM EST [place] - [facility] CT ABD & PELVIS W/O CONTRAST CT ABD & PELVIS W/O CONTRAST 12:00:00 AM EST [place] - [facility] URINALYSIS AUTO W/SCOPE URINALYSIS AUTO W/SCOPE 04/03/2019 12:00:00 AM EST [place] - [facility] C-REACTIVE PROTEIN C-REACTIVE PROTEIN 04/03/2019 12:00:00 AM EST [place] - [facility] ASSAY OF LIPASE ASSAY OF LIPASE 04/03/2019 12:00:00 AM EST [place] - [facility] Catheterize for urine spec Catheterize for urine spec 2019 12:00:00 AM EST [place] - [facility] ONDANSETRON HCL INJECTION ONDANSETRON HCL INJECTION 04/03/2019 1 2:00:00 AM EST [place] - [facility] URINE CULTURE/COLONY COUNT URINE CULTURE/COLONY COUNT 2019 12:00:00 AM EST [place] - [facility] THER/PROPH/DIAG INJ IV PUSH THER/PROPH/DIAG INJ IV PUSH 0 04/2019 12:00:00 AM EST [place] - [facility] CHORIONIC GONADOTROPIN ASSAY CHORIONIC GONADOTROPIN ASSAY 12:00:00 AM EST [place] - [facility] EMERGENCY DEPT VISIT EMERGENCY DEPT VISIT 04/03/2019 12:00:00 AM ES T [place] - [facility] THER/PROPH/DIAG INJ IV PUSH THER/PROPH/DIAG INJ IV PUSH 04/2019 12:00:00 AM EST [place] - [facility] C-REACTIVE PROTEIN C-REACTIVE PROTEIN 04/03/2019 12:00:00 AM EST [place] - [facility] COMPREHEN METABOLIC PANEL COMPREHEN METABOLIC PANEL 04/03/2019 1 2:00:00 AM EST [place] - [facility] ROUTINE VENIPUNCTURE ROUTINE VENIPUNCTURE 04/03/2019 12:00:00 AM ES T [place] - [facility] URINALYSIS AUTO W/SCOPE URINALYSIS AUTO W/SCOPE 04/03/2019 12:00:00 AM EST [place] - [facility] BLOOD COUNT COMPLETE AUTO&AUTO DIFRNTL WBC COUNT COMPLETE CB C W/AUTO DIFF WBC 04/03/2019 12:00:00 AM EST [place] [facility] EMERGENCY DEPT VISIT EMERGENCY DEPT VISIT 04/03/2019 12:00:00 AM ES T [place] - [facility] ONDANSETRON HCL INJECTION ONDANSETRON HCL INJECTION 04/03/2019 1 2:00:00 AM EST [place] - [facility] CHORIONIC GONADOTROPIN ASSAY CHORIONIC GONADOTROPIN ASSAY 12:00:00 AM EST [place] - [facility] URINE CULTURE/COLONY COUNT URINE CULTURE/COLONY COUNT 2019 12:00:00 AM EST [place] - [facility] Catheterize for urine spec Catheterize for urine spec 2019 12:00:00 AM EST [place] - [facility] CT ABD & PELVIS W/O CONTRAST CT ABD & PELVIS W/O CONTRAST 12:00:00 AM EST [place] - [facility] ASSAY OF LIPASE ASSAY OF LIPASE 04/03/2019 12:00:00 AM EST [place] - [facility] C-REACTIVE PROTEIN C-REACTIVE PROTEIN 04/03/2019 12:00:00 AM EST [place] - [facility] Catheterize for urine spec Catheterize for urine spec 2019 12:00:00 AM EST [place] - [facility] BLOOD COUNT COMPLETE AUTO&AUTO DIFRNTL WBC COUNT COMPLETE CB C W/AUTO DIFF WBC 04/03/2019 12:00:00 AM EST [place] [facility] COMPREHEN METABOLIC PANEL COMPREHEN METABOLIC PANEL 04/03/2019 1 2:00:00 AM EST [place] - [facility] CHORIONIC GONADOTROPIN ASSAY CHORIONIC GONADOTROPIN ASSAY 12:00:00 AM EST [place] - [facility] ONDANSETRON HCL INJECTION ONDANSETRON HCL INJECTION 04/03/2019 1 2:00:00 AM EST [place] - [facility] URINE CULTURE/COLONY COUNT URINE CULTURE/COLONY COUNT 2019 12:00:00 AM EST [place] - [facility] CT ABD & PELVIS W/O CONTRAST CT ABD & PELVIS W/O CONTRAST 12:00:00 AM EST [place] - [facility] ROUTINE VENIPUNCTURE ROUTINE VENIPUNCTURE 04/03/2019 12:00:00 AM ES T [place] - [facility] [facility], [facility] EMERGENCY DEPT VISIT EMERGENCY DEPT VISIT 04/03/2019 12:00:00 AM ES T [place] [facility] URINALYSIS AUTO W/SCOPE URINALYSIS AUTO W/SCOPE 04/03/2019 12:00:00 AM EST [place] [facility], [facility] THER/PROPH/DIAG INJ IV PUSH THER/PROPH/DIAG INJ IV PUSH 02/0 04/2019 12:00:00 AM EST [place] - [facility], [facility] ASSAY OF LIPASE ASSAY OF LIPASE 04/03/2019 12:00:00 AM EST [place] - [facility], [facility] URINE CULTURE/COLONY COUNT URINE CULTURE/COLONY COUNT 2019 12:00:00 AM EST [place] - [facility] OFFICE/OUTPATIENT VISIT EST OFFICE/OUTPATIENT VISIT EST 03/02 12:00:00 AM EST [place] - [facility] OFFICE/OUTPATIENT VISIT EST OFFICE/OUTPATIENT VISIT EST 03/02 12:00:00 AM EST [place] [facility] URINE CULTURE/COLONY COUNT URINE CULTURE/COLONY COUNT 2019 12:00:00 AM EST [place] - [facility], [facility] URINE CULTURE/COLONY COUNT URINE CULTURE/COLONY COUNT 2019 12:00:00 AM EST [place] - [facility] URINE CULTURE/COLONY COUNT URINE CULTURE/COLONY COUNT 2019 12:00:00 AM EST [place] - [facility] URINE CULTURE/COLONY COUNT URINE CULTURE/COLONY COUNT 2019 12:00:00 AM EST [place] - [facility] URINE CULTURE/COLONY COUNT URINE CULTURE/COLONY COUNT 2019 12:00:00 AM EST [place] - [facility] URINE CULTURE/COLONY COUNT URINE CULTURE/COLONY COUNT 2019 12:00:00 AM EST [place] - [facility], [facility] URINE CULTURE/COLONY COUNT URINE CULTURE/COLONY COUNT 2019 12:00:00 AM EST [place] - [facility], [facility] URINE CULTURE/COLONY COUNT URINE CULTURE/COLONY COUNT 2019 12:00:00 AM EST [place] - [facility], [facility] CHORIONIC GONADOTROPIN ASSAY CHORIONIC GONADOTROPIN ASSAY 12:00:00 AM EST [place] - [facility], [facility] ASSAY OF AMYLASE ASSAY OF AMYLASE 02/18/2019 12:00:00 AM EST [place] - [facility], [facility] COMPREHEN METABOLIC PANEL COMPREHEN METABOLIC PANEL 02/18/2019 1 2:00:00 AM EST [place] - [facility], [facility] EMERGENCY DEPT VISIT EMERGENCY DEPT VISIT 02/18/2019 12:00:00 AM ES T [place] - [facility], [facility] CT ABD & PELV W/CONTRAST CT ABD & PELV W/CONTRAST 02/18/2019 12:00: 00 AM EST [place] - [facility] THROMBOPLASTIN TIME PARTIAL THROMBOPLASTIN TIME PARTIAL 01/30 12:00:00 AM EST [place] - [facility], [facility] TRANSVAGINAL US NON-OB TRANSVAGINAL US NON-OB 02/18/2019 12:00:00 A M EST [place] - [facility] BLOOD COUNT COMPLETE AUTO&AUTO DIFRNTL WBC COUNT COMPLETE CB C W/AUTO DIFF WBC 02/18/2019 12:00:00 AM EST [place] [facility] C-REACTIVE PROTEIN C-REACTIVE PROTEIN 02/18/2019 12:00:00 AM EST [place] - [facility] KETOROLAC TROMETHAMINE INJ KETOROLAC TROMETHAMINE INJ 2018 12:00:00 AM EST [place] - [facility] ROUTINE VENIPUNCTURE ROUTINE VENIPUNCTURE 02/18/2019 12:00:00 AM ES T [place] - [facility], [facility] ROUTINE VENIPUNCTURE ROUTINE VENIPUNCTURE 02/18/2019 12:00:00 AM ES T [place] - [facility], [facility] THER/PROPH/DIAG INJ IV PUSH THER/PROPH/DIAG INJ IV PUSH 01/30 12:00:00 AM EST [place] - [facility], [facility] ASSAY OF LIPASE ASSAY OF LIPASE 02/18/2019 12:00:00 AM EST [place] - [facility] EMERGENCY DEPT VISIT EMERGENCY DEPT VISIT 02/18/2019 12:00:00 AM ES T [place] - [facility], [facility] C-REACTIVE PROTEIN C-REACTIVE PROTEIN 02/18/2019 12:00:00 AM EST [place] - [facility] THROMBOPLASTIN TIME PARTIAL THROMBOPLASTIN TIME PARTIAL 01/30 12:00:00 AM EST [place] - [facility] KETOROLAC TROMETHAMINE INJ KETOROLAC TROMETHAMINE INJ 2018 12:00:00 AM EST [place] - [facility], [facility] ROUTINE VENIPUNCTURE ROUTINE VENIPUNCTURE 02/18/2019 12:00:00 AM ES T [place] - [facility] CHORIONIC GONADOTROPIN ASSAY CHORIONIC GONADOTROPIN ASSAY 12:00:00 AM EST [place] - [facility] ASSAY OF LIPASE ASSAY OF LIPASE 02/18/2019 12:00:00 AM EST [place] - [facility], [facility] COMPREHEN METABOLIC PANEL COMPREHEN METABOLIC PANEL 02/18/2019 1 2:00:00 AM EST [place] - [facility], [facility] BLOOD COUNT COMPLETE AUTO&AUTO DIFRNTL WBC COUNT COMPLETE CB C W/AUTO DIFF WBC 02/18/2019 12:00:00 AM EST [place] [facility] THER/PROPH/DIAG INJ IV PUSH THER/PROPH/DIAG INJ IV PUSH 01/30 12:00:00 AM EST [place] [facility] CT ABD & PELV W/CONTRAST CT ABD & PELV W/CONTRAST 02/18/2019 12:00: 00 AM EST [place] - [facility], [facility] TRANSVAGINAL US NON-OB TRANSVAGINAL US NON-OB 02/18/2019 12:00:00 A M EST [place] - [facility], [facility] ASSAY OF AMYLASE ASSAY OF AMYLASE 02/18/2019 12:00:00 AM EST [place] - [facility], [facility] ROUTINE VENIPUNCTURE ROUTINE VENIPUNCTURE 02/18/2019 12:00:00 AM ES T [place] - [facility], [facility] THROMBOPLASTIN TIME PARTIAL THROMBOPLASTIN TIME PARTIAL 01/30 12:00:00 AM EST [place] - [facility] KETOROLAC TROMETHAMINE INJ KETOROLAC TROMETHAMINE INJ 2018 12:00:00 AM EST [place] - [facility], [facility] ROUTINE VENIPUNCTURE ROUTINE VENIPUNCTURE 02/18/2019 12:00:00 AM ES T [place] - [facility], [facility] THER/PROPH/DIAG INJ IV PUSH THER/PROPH/DIAG INJ IV PUSH 01/30 12:00:00 AM EST [place] - [facility], [facility] CHORIONIC GONADOTROPIN ASSAY CHORIONIC GONADOTROPIN ASSAY 12:00:00 AM EST [place] - [facility], [facility] TRANSVAGINAL US NON-OB TRANSVAGINAL US NON-OB 02/18/2019 12:00:00 A M EST [place] - [facility], [facility] BLOOD COUNT COMPLETE AUTO&AUTO DIFRNTL WBC COUNT COMPLETE CB C W/AUTO DIFF WBC 02/18/2019 12:00:00 AM EST [place] [facility] ROUTINE VENIPUNCTURE ROUTINE VENIPUNCTURE 02/18/2019 12:00:00 AM ES T [place] - [facility], [facility] EMERGENCY DEPT VISIT EMERGENCY DEPT VISIT 02/18/2019 12:00:00 AM ES T [place] - [facility], [facility] ASSAY OF LIPASE ASSAY OF LIPASE 02/18/2019 12:00:00 AM EST [place] - [facility] CT ABD & PELV W/CONTRAST CT ABD & PELV W/CONTRAST 02/18/2019 12:00: 00 AM EST [place] - [facility] COMPREHEN METABOLIC PANEL COMPREHEN METABOLIC PANEL 02/18/2019 1 2:00:00 AM EST [place] - [facility], [facility] ASSAY OF AMYLASE ASSAY OF AMYLASE 02/18/2019 12:00:00 AM EST [place] - [facility], [facility] C-REACTIVE PROTEIN C-REACTIVE PROTEIN 02/18/2019 12:00:00 AM EST [place] - [facility] ROUTINE VENIPUNCTURE ROUTINE VENIPUNCTURE 02/18/2019 12:00:00 AM ES T [place] - [facility] COMPREHEN METABOLIC PANEL COMPREHEN METABOLIC PANEL 02/18/2019 1 2:00:00 AM EST [place] - [facility], [facility] CHORIONIC GONADOTROPIN ASSAY CHORIONIC GONADOTROPIN ASSAY 12:00:00 AM EST [place] - [facility], [facility] ROUTINE VENIPUNCTURE ROUTINE VENIPUNCTURE 02/18/2019 12:00:00 AM ES T [place] - [facility] C-REACTIVE PROTEIN C-REACTIVE PROTEIN 02/18/2019 12:00:00 AM EST [place] - [facility] ASSAY OF LIPASE ASSAY OF LIPASE 02/18/2019 12:00:00 AM EST [place] - [facility], [facility] ASSAY OF AMYLASE ASSAY OF AMYLASE 02/18/2019 12:00:00 AM EST [place] - [facility], [facility] THER/PROPH/DIAG INJ IV PUSH THER/PROPH/DIAG INJ IV PUSH 01/30 12:00:00 AM EST [place] - [facility] KETOROLAC TROMETHAMINE INJ KETOROLAC TROMETHAMINE INJ 2018 12:00:00 AM EST [place] - [facility] CT ABD & PELV W/CONTRAST CT ABD & PELV W/CONTRAST 02/18/2019 12:00: 00 AM EST [place] - [facility], [facility] EMERGENCY DEPT VISIT EMERGENCY DEPT VISIT 02/18/2019 12:00:00 AM ES T [place] - [facility], [facility] THROMBOPLASTIN TIME PARTIAL THROMBOPLASTIN TIME PARTIAL 01/30 12:00:00 AM EST [place] - [facility], [facility] BLOOD COUNT COMPLETE AUTO&AUTO DIFRNTL WBC COUNT COMPLETE CB C W/AUTO DIFF WBC 02/18/2019 12:00:00 AM EST [place] [facility] TRANSVAGINAL US NON-OB TRANSVAGINAL US NON-OB 02/18/2019 12:00:00 A M EST [place] - [facility] THROMBOPLASTIN TIME PARTIAL THROMBOPLASTIN TIME PARTIAL 01/30 12:00:00 AM EST [place] - [facility] CHORIONIC GONADOTROPIN ASSAY CHORIONIC GONADOTROPIN ASSAY 12:00:00 AM EST [place] - [facility], [facility] ROUTINE VENIPUNCTURE ROUTINE VENIPUNCTURE 02/18/2019 12:00:00 AM ES T [place] - [facility], [facility] ROUTINE VENIPUNCTURE ROUTINE VENIPUNCTURE 02/18/2019 12:00:00 AM ES T [place] - [facility], [facility] ASSAY OF AMYLASE ASSAY OF AMYLASE 02/18/2019 12:00:00 AM EST [place] - [facility] BLOOD COUNT COMPLETE AUTO&AUTO DIFRNTL WBC COUNT COMPLETE CB C W/AUTO DIFF WBC 02/18/2019 12:00:00 AM EST [place] [facility] THER/PROPH/DIAG INJ IV PUSH THER/PROPH/DIAG INJ IV PUSH 01/30 12:00:00 AM EST [place] - [facility], [facility] ASSAY OF LIPASE ASSAY OF LIPASE 02/18/2019 12:00:00 AM EST [place] - [facility], [facility] C-REACTIVE PROTEIN C-REACTIVE PROTEIN 02/18/2019 12:00:00 AM EST [place] - [facility] CT ABD & PELV W/CONTRAST CT ABD & PELV W/CONTRAST 02/18/2019 12:00: 00 AM EST [place] - [facility] TRANSVAGINAL US NON-OB TRANSVAGINAL US NON-OB 02/18/2019 12:00:00 A M EST [place] - [facility], [facility] COMPREHEN METABOLIC PANEL COMPREHEN METABOLIC PANEL 02/18/2019 1 2:00:00 AM EST [place] - [facility], [facility] KETOROLAC TROMETHAMINE INJ KETOROLAC TROMETHAMINE INJ 2018 12:00:00 AM EST [place] - [facility], [facility] EMERGENCY DEPT VISIT EMERGENCY DEPT VISIT 02/18/2019 12:00:00 AM ES T [place] - [facility], [facility] EMERGENCY DEPT VISIT EMERGENCY DEPT VISIT 02/18/2019 12:00:00 AM ES T [place] - [facility], [facility] COMPREHEN METABOLIC PANEL COMPREHEN METABOLIC PANEL 02/18/2019 1 2:00:00 AM EST [place] - [facility], [facility] TRANSVAGINAL US NON-OB TRANSVAGINAL US NON-OB 02/18/2019 12:00:00 A M EST [place] - [facility], [facility] KETOROLAC TROMETHAMINE INJ KETOROLAC TROMETHAMINE INJ 2018 12:00:00 AM EST [place] - [facility], [facility] ROUTINE VENIPUNCTURE ROUTINE VENIPUNCTURE 02/18/2019 12:00:00 AM ES T [place] - [facility], [facility] CHORIONIC GONADOTROPIN ASSAY CHORIONIC GONADOTROPIN ASSAY 12:00:00 AM EST [place] - [facility], [facility] ASSAY OF LIPASE ASSAY OF LIPASE 02/18/2019 12:00:00 AM EST [place] - [facility], [facility] THER/PROPH/DIAG INJ IV PUSH THER/PROPH/DIAG INJ IV PUSH 01/30 12:00:00 AM EST [place] - [facility], [facility] ASSAY OF AMYLASE ASSAY OF AMYLASE 02/18/2019 12:00:00 AM EST [place] - [facility] BLOOD COUNT COMPLETE AUTO&AUTO DIFRNTL WBC COUNT COMPLETE CB C W/AUTO DIFF WBC 02/18/2019 12:00:00 AM EST [place] [facility] C-REACTIVE PROTEIN C-REACTIVE PROTEIN 02/18/2019 12:00:00 AM EST [place] - [facility] ROUTINE VENIPUNCTURE ROUTINE VENIPUNCTURE 02/18/2019 12:00:00 AM ES T [place] - [facility] CT ABD & PELV W/CONTRAST CT ABD & PELV W/CONTRAST 02/18/2019 12:00: 00 AM EST [place] - [facility] THROMBOPLASTIN TIME PARTIAL THROMBOPLASTIN TIME PARTIAL 01/30 12:00:00 AM EST [place] - [facility], [facility] ASSAY OF AMYLASE ASSAY OF AMYLASE 02/18/2019 12:00:00 AM EST [place] - [facility], [facility] ROUTINE VENIPUNCTURE ROUTINE VENIPUNCTURE 02/18/2019 12:00:00 AM ES T [place] - [facility] COMPREHEN METABOLIC PANEL COMPREHEN METABOLIC PANEL 02/18/2019 1 2:00:00 AM EST [place] - [facility] BLOOD COUNT COMPLETE AUTO&AUTO DIFRNTL WBC COUNT COMPLETE CB C W/AUTO DIFF WBC 02/18/2019 12:00:00 AM EST [place] [facility] THER/PROPH/DIAG INJ IV PUSH THER/PROPH/DIAG INJ IV PUSH 01/30 12:00:00 AM EST [place] - [facility] CHORIONIC GONADOTROPIN ASSAY CHORIONIC GONADOTROPIN ASSAY 12:00:00 AM EST [place] - [facility] KETOROLAC TROMETHAMINE INJ KETOROLAC TROMETHAMINE INJ 2018 12:00:00 AM EST [place] - [facility] THROMBOPLASTIN TIME PARTIAL THROMBOPLASTIN TIME PARTIAL 01/30 12:00:00 AM EST [place] - [facility] ASSAY OF LIPASE ASSAY OF LIPASE 02/18/2019 12:00:00 AM EST [place] - [facility] C-REACTIVE PROTEIN C-REACTIVE PROTEIN 02/18/2019 12:00:00 AM EST [place] - [facility], [facility] ROUTINE VENIPUNCTURE ROUTINE VENIPUNCTURE 02/18/2019 12:00:00 AM ES T [place] - [facility], [facility] TRANSVAGINAL US NON-OB TRANSVAGINAL US NON-OB 02/18/2019 12:00:00 A M EST [place] - [facility], [facility] EMERGENCY DEPT VISIT EMERGENCY DEPT VISIT 02/18/2019 12:00:00 AM ES T [place] - [facility], [facility] CT ABD & PELV W/CONTRAST CT ABD & PELV W/CONTRAST 02/18/2019 12:00: 00 AM EST [place] - [facility], [facility] EMERGENCY DEPT VISIT EMERGENCY DEPT VISIT 02/18/2019 12:00:00 AM ES T [place] - [facility], [facility] KETOROLAC TROMETHAMINE INJ KETOROLAC TROMETHAMINE INJ 2018 12:00:00 AM EST [place] - [facility], [facility] C-REACTIVE PROTEIN C-REACTIVE PROTEIN 02/18/2019 12:00:00 AM EST [place] - [facility], [facility] COMPREHEN METABOLIC PANEL COMPREHEN METABOLIC PANEL 02/18/2019 1 2:00:00 AM EST [place] - [facility] CT ABD & PELV W/CONTRAST CT ABD & PELV W/CONTRAST 02/18/2019 12:00: 00 AM EST [place] - [facility], [facility] ROUTINE VENIPUNCTURE ROUTINE VENIPUNCTURE 02/18/2019 12:00:00 AM ES T [place] - [facility], [facility] CHORIONIC GONADOTROPIN ASSAY CHORIONIC GONADOTROPIN ASSAY 12:00:00 AM EST [place] - [facility], [facility] ROUTINE VENIPUNCTURE ROUTINE VENIPUNCTURE 02/18/2019 12:00:00 AM ES T [place] - [facility] ASSAY OF AMYLASE ASSAY OF AMYLASE 02/18/2019 12:00:00 AM EST [place] - [facility] THROMBOPLASTIN TIME PARTIAL THROMBOPLASTIN TIME PARTIAL 01/30 12:00:00 AM EST [place] - [facility] TRANSVAGINAL US NON-OB TRANSVAGINAL US NON-OB 02/18/2019 12:00:00 A M EST [place] - [facility] ASSAY OF LIPASE ASSAY OF LIPASE 02/18/2019 12:00:00 AM EST [place] - [facility] BLOOD COUNT COMPLETE AUTO&AUTO DIFRNTL WBC COUNT COMPLETE CB C W/AUTO DIFF WBC 02/18/2019 12:00:00 AM EST [place] [facility] THER/PROPH/DIAG INJ IV PUSH THER/PROPH/DIAG INJ IV PUSH 01/30 12:00:00 AM EST [place] - [facility] CHORIONIC GONADOTROPIN ASSAY CHORIONIC GONADOTROPIN ASSAY 12:00:00 AM EST [place] - [facility] THROMBOPLASTIN TIME PARTIAL THROMBOPLASTIN TIME PARTIAL 01/30 12:00:00 AM EST [place] - [facility] C-REACTIVE PROTEIN C-REACTIVE PROTEIN 02/18/2019 12:00:00 AM EST [place] - [facility] ASSAY OF LIPASE ASSAY OF LIPASE 02/18/2019 12:00:00 AM EST [place] - [facility] THER/PROPH/DIAG INJ IV PUSH THER/PROPH/DIAG INJ IV PUSH 01/30 12:00:00 AM EST [place] - [facility] COMPREHEN METABOLIC PANEL COMPREHEN METABOLIC PANEL 02/18/2019 1 2:00:00 AM EST [place] - [facility] ROUTINE VENIPUNCTURE ROUTINE VENIPUNCTURE 02/18/2019 12:00:00 AM ES T [place] - [facility] EMERGENCY DEPT VISIT EMERGENCY DEPT VISIT 02/18/2019 12:00:00 AM ES T [place] - [facility], [facility] TRANSVAGINAL US NON-OB TRANSVAGINAL US NON-OB 02/18/2019 12:00:00 A M EST [place] - [facility] BLOOD COUNT COMPLETE AUTO&AUTO DIFRNTL WBC COUNT COMPLETE CB C W/AUTO DIFF WBC 02/18/2019 12:00:00 AM EST [place] [facility] CT ABD & PELV W/CONTRAST CT ABD & PELV W/CONTRAST 02/18/2019 12:00: 00 AM EST [place] - [facility], [facility] KETOROLAC TROMETHAMINE INJ KETOROLAC TROMETHAMINE INJ 2018 12:00:00 AM EST [place] - [facility] ROUTINE VENIPUNCTURE ROUTINE VENIPUNCTURE 02/18/2019 12:00:00 AM ES T [place] - [facility], [facility] ASSAY OF AMYLASE ASSAY OF AMYLASE 02/18/2019 12:00:00 AM EST [place] - [facility], [facility] COMPREHEN METABOLIC PANEL COMPREHEN METABOLIC PANEL 02/18/2019 1 2:00:00 AM EST [place] - [facility] CHORIONIC GONADOTROPIN ASSAY CHORIONIC GONADOTROPIN ASSAY 12:00:00 AM EST [place] - [facility] THROMBOPLASTIN TIME PARTIAL THROMBOPLASTIN TIME PARTIAL 01/30 12:00:00 AM EST [place] - [facility] TRANSVAGINAL US NON-OB TRANSVAGINAL US NON-OB 02/18/2019 12:00:00 A M EST [place] - [facility] EMERGENCY DEPT VISIT EMERGENCY DEPT VISIT 02/18/2019 12:00:00 AM ES T [place] - [facility], [facility] KETOROLAC TROMETHAMINE INJ KETOROLAC TROMETHAMINE INJ 2018 12:00:00 AM EST [place] - [facility], [facility] ROUTINE VENIPUNCTURE ROUTINE VENIPUNCTURE 02/18/2019 12:00:00 AM ES T [place] - [facility], [facility] THER/PROPH/DIAG INJ IV PUSH THER/PROPH/DIAG INJ IV PUSH 01/30 12:00:00 AM EST [place] - [facility], [facility] C-REACTIVE PROTEIN C-REACTIVE PROTEIN 02/18/2019 12:00:00 AM EST [place] - [facility], [facility] BLOOD COUNT COMPLETE AUTO&AUTO DIFRNTL WBC COUNT COMPLETE CB C W/AUTO DIFF WBC 02/18/2019 12:00:00 AM EST [place] [facility] ROUTINE VENIPUNCTURE ROUTINE VENIPUNCTURE 02/18/2019 12:00:00 AM ES T [place] - [facility], [facility] CT ABD & PELV W/CONTRAST CT ABD & PELV W/CONTRAST 02/18/2019 12:00: 00 AM EST [place] - [facility], [facility] ASSAY OF AMYLASE ASSAY OF AMYLASE 02/18/2019 12:00:00 AM EST [place] - [facility], [facility] ASSAY OF LIPASE ASSAY OF LIPASE 02/18/2019 12:00:00 AM EST [place] - [facility], [facility] C-REACTIVE PROTEIN C-REACTIVE PROTEIN 02/18/2019 12:00:00 AM EST [place] - [facility], [facility] ROUTINE VENIPUNCTURE ROUTINE VENIPUNCTURE 02/18/2019 12:00:00 AM ES T [place] - [facility] THROMBOPLASTIN TIME PARTIAL THROMBOPLASTIN TIME PARTIAL 01/30 12:00:00 AM EST [place] - [facility] BLOOD COUNT COMPLETE AUTO&AUTO DIFRNTL WBC COUNT COMPLETE CB C W/AUTO DIFF WBC 02/18/2019 12:00:00 AM EST [place] - [facility] EMERGENCY DEPT VISIT EMERGENCY DEPT VISIT 02/18/2019 12:00:00 AM ES T [place] - [facility], [facility] ROUTINE VENIPUNCTURE ROUTINE VENIPUNCTURE 02/18/2019 12:00:00 AM ES T [place] - [facility] ASSAY OF LIPASE ASSAY OF LIPASE 02/18/2019 12:00:00 AM EST [place] - [facility] THER/PROPH/DIAG INJ IV PUSH THER/PROPH/DIAG INJ IV PUSH 01/30 12:00:00 AM EST [place] - [facility] ASSAY OF AMYLASE ASSAY OF AMYLASE 02/18/2019 12:00:00 AM EST [place] - [facility] CHORIONIC GONADOTROPIN ASSAY CHORIONIC GONADOTROPIN ASSAY 12:00:00 AM EST [place] - [facility] COMPREHEN METABOLIC PANEL COMPREHEN METABOLIC PANEL 02/18/2019 1 2:00:00 AM EST [place] - [facility] CT ABD & PELV W/CONTRAST CT ABD & PELV W/CONTRAST 02/18/2019 12:00: 00 AM EST [place] - [facility] TRANSVAGINAL US NON-OB TRANSVAGINAL US NON-OB 02/18/2019 12:00:00 A M EST [place] - [facility] KETOROLAC TROMETHAMINE INJ KETOROLAC TROMETHAMINE INJ 2018 12:00:00 AM EST [place] - [facility] Results ID Date Data Source [id number] 12/20/2019 04:52:57 PM EDT [facility] Name Value Range Interpretation Code Description Data Arianne rce(s) Supporting Document(s) Progress Note [facility] NLNLMd2dSdVVAaBy24/LHHsqNFVzk[id number]z lbm [file] [id number]/BRAKE LINING MAKER/KZyNLXFQqevl8p2oEj2zV4Wp/x03dpsvExV3VlBnjPPiNIhKLxP3QrLI9w5K1Ey06XOoA [file] [id number]F2Mm8tZKZCNh1+MZjvkXMeeOulPINHVcG0DyZ5AWmzIEBJJx4H ID Date Data Source [id number] 11/07/2019 11:33:00 PM EDT [facility] 1 OrderSheet [facility] Emergency Department [address] [place] [address] Phone #: [phone] urj- [phone] 11/07/2019 23:28 Patient: BERKLEY LOPEZ Sex: F [...] : Bolus 1000 Ronda Garcia RNmL (X1) M.D.;Phenergan IV 25mg 23:55 11/07/2019 00:07 11/08/2019in 50mL NS, give Ronda Garcia RNwide open: 25 mg M.D.;(NOW x1, HIGH 2 OrderSheet [facility] Emergency Department [address] [place] [address] Phone #: ext- [phone] 11/07/2019 23:28 Patient: BERKLEY LOPEZ Sex: F : 2000 Age: 19yALERTMEDICATION)Toradol 15 mg IVP 23:55 11/07/2019 00:09 11/08/2019X1 dose: 15 mg Ronda Garcia RN(NOW x1) Alex;GENERAL ORDERSOrder Description Priority Entered Acknowledged InitialedNPO 23:55 11/07/2019 23:56 Ronda Napier RN, M.D.;Saline Lock 23:55 11/07/2019 23:56 Ronda Napier RN, M.D.;[Electronically signed by Ronda Garcia M.D. (01:27 11/08/2019)][Electronically signed by Jennifer Oleary R.N. (05:11/08/2019)][Electronically locked by Jennifer Oleary R.N. (05:11/08/2019)] Name Value Range Interpretation Code Description Data Arianne rce(s) Supporting Document(s) ID Date Data Source [id number] 11/07/2019 11:33:00 PM EDT [facility] 1 Medication Reconciliation Report [facility] Emergency Department [address] [place] [address] Phone #: ext- [phone] 11/07/2019 23:28 Patient: [...] 14 tablet.Refills: 2. Substitution permitted.Pharmacy - [facility] #[id number] - [address] [place], [place] [phone]. . -- Ronda Garcia M.D. Name Value Range Interpretation Code Description Data Arianne rce(s) Supporting Document(s) ID Date Data Source [id number] 11/07/2019 11:33:00 PM EDT [facility] 1 Medication Administration Record [facility] Emergency Department [address] [place] [address] Phone #: ext- [phone] 11/07/2019 23:28 Patient: BERKLEY LOPEZ Sex: F : 2000 Age: 19yWeight: 106.5 kgHeight/Length: 66 inBMI: 37.9ALLERGIES: Penicillins Date/Time Medication Administered Medication OrderedStart NS [IV] NS IV 1000 mL Bolus: : Bolus 515988:11/08/2019 Dose: IV Fluids mL (X1)Tanner Hopson RN Rate: 1000 mL/hr---- Bolus: 1000 mLStop Dispensed: 1000 mL bag01:11/08/2019 Site: #2 right upper armTina Lam Hopson [...] rce(s) Supporting Document(s) ID Date Data Source [id number] 11/07/2019 11:33:00 PM EDT [facility] 1 General Instructions [facility] Emergency Department [address] [place] [address] Phone #: ext- [phone] 11/07/2019 23:28 Patient: BERKLEY LOPEZ Sex: F : 2000 Age: 19yPrimary dysmenorrheaINSTRUCTIONSDrink plenty of fluids. Do not smoke. No alcohol.Warnings: Further evaluation is necessary (ASSESSMENT MANAGER). It is very important to follow up [...] 14 tablet.Refills: 2. Substitution permitted.Pharmacy - [facility] #[id number] - [address], [place] [phone]. .Follow-up:Return to the emergency department as needed. Follow up with your healthcare provider in three even ifwell. Call for an appointment. Reason for referral: evaluation and treatment. Summary of care provided topatient via paper. Follow up with a media promoter in three days even if well. Call for an appointment.Reason for referral: evaluation and treatment. Summary of care provided to patient via paper.Understanding of the discharge instructions verbalized by patient. Expected course of illness, dischargeinstructions, activity level, diet, prescriptions x1, follow-up appointment and risks and benefits of treatmentre viewed with patient and understanding verbalized. Agrees to plan of care.Follow- up with: [facility], , , [address], [place], [facility] Follow up in three days even if well. Call for an appointment. Reason for referral: evaluation andtreatment. Summary of care provided to patient via paper. 2 General Instructions [facility] Emergency Department [address] [place] [address] Phone #: ext- [phone] 11/07/2019 23:28 Patient: [...] the uterus (not cancer) 3 General Instructions [facility] Emergency Department [address] [place] [address] Phone #: ext- [phone] 11/07/2019 23:28 Patient: [...] or occurs between periods 4 General Instructions [facility] Emergency Department [address] [place] [address] Phone #: ext- [phone] 11/07/2019 23:28 Patient: BERKLEY LOPEZ Sex: F : 2000 Age: 19y Unusual vaginal discharge between periods Bleeding becomes heavy (soaking more than 1 pad or tampon every hour for 3 hours) Passage of pink or rodriguez tissue from the vagina [id number] [employer]. [address] [place] [address]. All rights reserved. This information is not intended as asubstitute for professional medical care. Always follow your healthcare professional's instructions. You have been given the following additional information: Painful Menstrual Periods (Dysmenorrhea)(Electronically signed by Ronda Garcia M.D. 11/08/2019 01:27) Name Value Range Interpretation Code Description Data Arianne rce(s) Supporting Document(s) ID Date Data Source [id number] 11/07/2019 11:33:00 PM EDT [facility] 1 Clinical Report - Nurses [facility] Emergency Department [address] [place] [address] Phone #: ext- [phone] 11/07/2019 23:28 Patient: BERKLEY LOPEZ Sex: F : 2000 Age: 19yTRIAGEArrived by private vehicle. Historian: patient.Triage time: 23:30 11/07/2019.Chief Complaint: PELVIC PAIN and VAGINAL BLEED.Onset. (3 days ago). ( Seen at [facility] for same, spotting this morning. This afternoon she noticed it gettingworse. Was dizzy when watching TV tonight. States that she went through 4 pads today, and has a"couple" golf ball sized clots before. Has PCOS, so her periods are irregular. States that she called margarethhas not scheduled a MACHINE III COREMAKER follow up yet.). ( Has had 3 [...] SURGERIES:.Knee Surgery. 2 Clinical Report - Nurses [facility] Emergency Department [address] [place] [address] Phone #: ext- [phone] 11/07/2019 23:28 Patient: BERKLEY LOPEZ Sex: F [...] site #2 3 Clinical Report - Nurses [facility] Emergency Department [address] [place] [address] Phone #: ext- [phone] 11/07/2019 23:28 Patient: BERKLEY LOPEZ Sex: F : 2000 Age: 19y via IV pump. Allergies verified and confirmed 5 rights. IV patency established. IV site checked: no pain, redness, or swelling. IV flushed thoroughly pre- and post-medication administration. Information reviewed with patient including reason for taking this medication, signs of allergic reaction and precautions. Verbalizes understanding. --00:11/08/19 Tanner Hopson RN 00:11/08/2019 Started 25 mg [...] --01:13 11/08/19 Jennifer Hopson R.N.DISPOSITION / DISCHARGE 01:14 11/08/2019 Site #2 removed upon discharge. Bandage applied. [...] Temp: 98 F. Pain level now: 05/08. --01:11/08/19 Jennifer Hopson R.N. Departure time: 01:19 11/08/2019. --01:19 11/08/19 Jennifer Hopson R.N. 4 Clinical Report - Nurses [facility] Emergency Department [address] [place] [address] Phone #: [phone] wul- [phone] 11/07/2019 23:28 [id number] Sex: F : 2000 Age: 19yLocked/Released at 11/08/2019 05:05 by Jennifer Hopson R.N. Name Value Range Interpretation Code Description Data Arianne rce(s) Supporting Document(s) ID Date Data Source [id number] 11/07/2019 11:33:00 PM EDT [facility] 1 Clinical Report - Physicians/Mid Levels [facility] Emergency Department [address] [place] [address] Phone #: ext- [phone] 11/07/2019 23:28 Patient: [...] or hematuria. (pt has PCOS, seen at [facility] ER 2 days ago for passing small clot, not ; today, bleeding worse, went through 4 pads w some clots and pelvic pain; her periods are irregular; V x 3 today; was suppose to f/u w MACHINE III COREMAKER but no appt yet). Similar symptoms previously. Patient has had similar symptoms occasionally. Recent medical care: The patient was seen recently at another facility in the emergency department. ( seen at [facility] 2 days ago for passing blood [...] Medications: 2 Clinical Report - Physicians/Mid Levels [facility] Emergency Department [address] [place] [address] Phone #: ext- [phone] 11/07/2019 23:28 Patient: BERKLEY LOPEZ Sex: F [...] saturation: 100%. Temp: 98.3F. Pain level now: 8/10. Have been reviewed. Oxygen saturation normal.Appearance: Alert. [...] 36.0) 3 Clinical Report - Physicians/Mid Levels [facility] Emergency Department [address] [place] [address] Phone #: ext- [phone] 11/07/2019 23:28 Patient: [...] Male GFR Interprentation 20-49 yrs >60 mL/min Vwnkqb93-75 yrs >56 mL/min Normal 60-69 yrs >49 mL/min Normal 70-79yrs>42 mL/min Normal 80 and above >35 mL/min Normal Female GFRInterpretation 20-39 yrs >60 mL/min Normal 40-49 yrs >58 mL/minNormal 50-59 yrs >51 mL/min Normal 60-69 yrs >45 mL/min Chamcw20-33 yrs >39 mL/min Normal 80 and above >32 mL/min NormalLipase: (DEBBI: 11/07/2019 23:37) ( [facility] 11/08/2019 00:17) Final results Test Result Flag Units (Reference) 4 Clinical Report - Physicians/Mid Levels [facility] Emergency Department [address] [place] [address] Phone #: ext- [phone] 11/07/2019 23:28 Patient: BERKLEY LOPEZ Sex: F : 2000 Age: 19y LIPASE 30 U/L (13 - 60) Beta-HCG, Qual Serum: (DEBBI: 11/07/2019 23:37) ( [facility] 11/08/2019 00:22) Final results Test Result Flag Units (Reference) HCG SERUM QUAL NEGATIVE (NORMAL: NEGAT HCG SERUM QL REENTER NEGATIVE (NORMAL: NEGAT { KIT LOT # [id number] ){ KIT EXP DATE 12/11/20 ){ PROCEDURAL CONTROL VALID ) Lactic Acid: (DEBBI: 11/07/2019 23:37) ( [facility] 11/08/2019 00:03) Final results Test Result Flag Units (Reference) LACTIC ACID 2.0 MMOL/L (0.2 - 2.2).PROGRESS AND PROCEDURESCourse of Care: 01:09 11/08/19. pt has nml speculum exam, no bleeding whatsoever; workup all in andnml, not ; probable dysmenorrhea; will refer her to ASSESSMENT MANAGER; d/c instructions given. Patient counseled in person [...] No alcohol. Warnings: Further evaluation is necessary (ASSESSMENT MANAGER). It is very important to follow up [...] worsens. 5 Clinical Report - Physicians/Mid Levels [facility] Emergency Department [address] [place] [address] Phone #: ext- [phone] 11/07/2019 23:28 Patient: BERKLEY LOPEZ Sex: F [...] tablet. Refills: 2. Substitution permitted. Pharmacy - [facility] #[id number] - [address] [place], [place] [phone]. . Follow-up: Return to the emergency department as needed. Follow up with your healthcare provider in three even if well. Call for an appointment. Reason for referral: evaluation and treatment. Summary of care provided to patient via pap er. Follow up with a media promoter in three days even if well. Call [...] Agrees to plan of care. Follow-up with: [facility], , , [address] [place] [address], [place], [place], [facility] Follow up in three days even if well. Call for an appointment. Reason for referral: evaluation and treatment. Summary of care provided to patient via paper.(Electronically signed by Ronda Garcia M.D. 11/08/2019 01:27) Name Value Range Interpretation Code Description Data Arianne rce(s) Supporting Document(s) ID Date Data Source [id number] 11/08/2019 12:22:00 AM EDT [facility] Name Value Range Interpretation Code Description Data Arianne rce(s) Supporting Document(s) HCG SERUM QUAL NEGATIVE NORMAL: NEGATIVE [facility] HCG SERUM QL REENTER NEGATIVE NORMAL: NEGATIVE [facility] { KIT LOT # [id number] ){ KIT EXP DATE 12/11/20 ){ PROCEDURAL CONTROL VALID ) ID Date Data Source [id number] 11/08/2019 12:19:00 AM EDT [facility] Name Value Range Interpretation Code Description Data Arianne rce(s) Supporting Document(s) CBC W/AUTOMATED DIFF [facility] COMPLETE BLOOD COUNT Leukocytes [#/volume] in Blood by Automated count 12.9 10^3/uL 4.2 - 11.0 H [facility] Erythrocytes [#/volume] in Blood by Automated count 4.69 10^6/uL 4. 20 - 5.40 [facility] Hemoglobin [Mass/volume] in Blood 13.2 g/dL 12.0 - 16.0 [facility] Hematocrit [Volume Fraction] of Blood by Automated count 39.7 % 3 7.0 - 47.0 [facility] Erythrocyte mean corpuscular volume [Entitic volume] by Auto mated count 84.6 fL 81.0 - 101 [facility] Erythrocyte mean corpuscular hemoglobin [Entitic mass] by Automated count 28.1 pg 27.0 - 34.0 [facility] Erythrocyte mean corpuscular hemoglobin concentration [Mass/volume] by Automated count 33.2 g/dL 31.0 - 36.0 [facility] Erythrocyte distribution width [Ratio] by Automated count 12.9 % 11.5 - 14.5 [facility] Platelets [#/volume] in Blood by Automated count 289 10^3/uL 150 - 45 0 [facility] Platelet mean volume [Entitic volume] in Blood by Automated count 11.2 fL 7.4 - 10.4 H [facility] Neutrophils/100 leukocytes in Blood by Automated count 53.0 % 37. 0 - 80.0 [facility] Lymphocytes/100 leukocytes in Blood by Manual count 34.8 % 25.0 - 40.0 [facility] Monocytes/100 leukocytes in Blood by Automated count 8.1 % 3.0 - 8.0 H [facility] Eosinophils/100 leukocytes in Blood by Automated count 2.9 % 0.0 - 7.0 [facility] Basophils/100 leukocytes in Blood by Automated count 0.8 % 0.0 - 2.5 [facility] %IG 0.4 % 0.0 - 0.0 H [facility] al %NRBC 0.0 % 0.0 - 0.0 [facility] Neutrophils [#/volume] in Blood by Automated count 6.85 10^3/uL 2.00 - 6.90 [facility] Lymphocytes [#/volume] in Blood by Automated count 4.49 10^3/uL 0.60 - 3.40 H [facility] Monocytes [#/volume] in Blood by Automated count 1.04 10^3/uL 0.00 - 0.90 H [facility] Eosinophils [#/volume] in Blood by Automated count 0.38 10^3/uL 0.00 - 0.70 [facility] Basophils [#/volume] in Blood by Automated count 0.10 10^3/uL 0.00 - 0.20 [facility] #IG 0.05 10^3/uL 0.00 - 0.10 [facility] #NRBC 0.00 10^3/uL 0.00 - 0.00 [facility] MANUAL DIFF SEE BELOW [facility] ital Segmented neutrophils/100 leukocytes in Blood by Manual count 51 % 37 - 80 [facility] %LYMPH 42 % 25 - 40 H [facility] al %MONO 2 % 3 - 8 L [facility] %EOS 5 % 0 - 7 [facility] RBC MORPH NOT INDICATED [facility] ID Date Data Source [id number] 11/08/2019 12:16:00 AM EDT [facility] Name Value Range Interpretation Code Description Data Arianne rce(s) Supporting Document(s) Lipase [Enzymatic activity/volume] in Serum or Plasma 30 U/L 13 - 60 [facility] ID Date Data Source [id number] 11/08/2019 12:16:00 AM EDT [facility] Name Value Range Interpretation Code Description Data Arianne rce(s) Supporting Document(s) COMPREHENSIVE METABOLIC PANEL [facility] COMPREHENSIVE METABOLIC PANEL Sodium [Moles/volume] in Serum or Plasma 141 mEq/L 134 - 153 [facility] Potassium [Moles/volume] in Serum or Plasma 4.0 mEq/L 3.6 - 5.0 [facility] Chloride [Moles/volume] in Serum or Plasma 105 mEq/L 98 - 107 [facility] Carbon dioxide, total [Moles/volume] in Serum or Plasma 24 MEQ/L 22 - 30 [facility] Glucose [Mass/volume] in Serum or Plasma 87 MG/DL 65 - 110 [facility] BUN 8 MG/DL 7 - 21 [facility] Creatinine [Mass/volume] in Serum or Plasma 0.7 MG/DL 0.7 - 1.5 [facility] BUN/CREAT 11 8 - 27 [facility] al Protein [Mass/volume] in Serum or Plasma 6.9 G/DL 6.3 - 8.2 [facility] Albumin [Mass/volume] in Serum or Plasma 4.7 G/DL 3.9 - 5.0 [facility] Globulin [Mass/volume] in Serum by calculation 2.2 GM/DL 2.4 - 3.2 L [facility] A/G RATIO 2.1 0.8 - 2.0 H [facility] Calcium [Mass/volume] in Serum or Plasma 9.7 MG/DL 8.4 - 10.2 [facility] Bilirubin.total [Mass/volume] in Serum or Plasma <0.7 MG/DL 0.2 - 1.3 [facility] Alkaline phosphatase [Enzymatic activity/volume] in Serum or Plasma 102 U/L 38 - 126 [facility] Aspartate aminotransferase [Enzymatic activity/volume] in Serum or Plasma 19 U/L 5 - 40 [facility] Alanine aminotransferase [Enzymatic activity/volume] in Seru m or Plasma 22 U/L 7 - 56 [facility] Anion gap 3 in Serum or Plasma 12.0 mmol/L 8.0 - 16.0 [facility] AGE 19 yrs [facility] al NON-AA GFR >60 mL/min [facility] ital AFR AMER GFR >60 mL/min [facility]ital Male GFR In terprentation [...] >32 mL/min Normal ID Date Data Source [id number] 11/08/2019 12:03:00 AM EDT [facility] Name Value Range Interpretation Code Description Data Arianne rce(s) Supporting Document(s) Lactate [Moles/volume] in Serum or Plasma 2.0 MMOL/L 0.2 - 2.2 [facility] ID Date Data Source [id number] 07/20/2019 06:38:00 PM EDT [facility] [id number], [id number], [id number], [id number], Name Value Range Interpretation Code Description Data Arianne rce(s) Supporting Document(s) IMMAT. GRAN% 0.0-0.5 Normal (applies to non-numeric res ults) [facility] ID Date Data Source 07/20/2019 06:38:00 PM EDT [facility] [id number], [id number], [id number], [id number],[id number], Name Value Range Interpretation Code Description Data Arianne rce(s) Supporting Document(s) ABSOLUTE IMMATURE GRAN 0.00-0.40 Normal (applies to non-n umeric results) [facility] ID Date Data Source 07/20/2019 06:50:00 PM EDT [facility] [id number], [id number], [id number], [id number], Name Value Range Interpretation Code Description Data Arianne rce(s) Supporting Document(s) EGFR - NON- Normal (applies to non-numeric results) [facility] >60 mL/min/1.73 EGFR - Normal (applies to non- numeric results) [facility] >60 mL/min/1.73 Potential Chronic Kidne y Disease: <60ml/min/1.73sq meters Kidney Failure: <15ml/min/1.73sq meters ID Date Data Source 07/20/2019 06:45:00 PM EDT [facility] [id number], [id number], [id number],[id number],[id number], [id number], Name Value Range Interpretation Code Description Data Arianne rce(s) Supporting Document(s) URINE RBC 0-2 Above high normal [facility] h Services URINE WBC 0-2 Abnormal (applies to non-numeric res ults) [facility] BACTERIA FEW Abnormal (applies to non-numeric res ults) [facility] BUDDING YEAST [facility] URINE SQUAMOUS EPI [facility] MUCOUS [facility] HYALINE CASTS [facility] CALCIUM OXALATE CRYSTALS PRESENT Unite [facility] ID Date Data Source [id number] 07/20/2019 06:50:00 PM EDT [facility] [id number], Name Value Range Interpretation Code Description Data Arianne rce(s) Supporting Document(s) LIPASE Normal (applies to non-numeric results) [facility] <300 ID Date Data Source [id number] 07/20/2019 06:50:00 PM EDT [facility] [id number], Name Value Range Interpretation Code Description Data Arianne rce(s) Supporting Document(s) SODIUM 135-146 Normal (applies to non-numeric resul ts) [facility] POTASSIUM 3.5-5.3 Normal (applies to non-numeric resul ts) [facility] CHLORIDE 98-107 Above high normal [facility] CARBON DIOXIDE 21-32 Below low normal [facility] ANION GAP 5-15 Normal (applies to non-numeric resul ts) [facility] GLUCOSE 65-99 Above high normal [facility] Reference Ranges: Normal Fasting Glucose ........65-99 MG/DL Pre-Diabetes ......100-125 MG/DL Provisional Diagnosis of Diabetes .........>125 MG/DL BUN 7-23 Normal (applies to non-numeric results) [facility] CREATININE 0.5-1.0 Normal (applies to non-numeric resul ts) [facility] BUN/CREAT RATIO [facility] CALCIUM 8.4-10.4 Normal (applies to non-numeric resul ts) [facility] TOTAL PROTEIN 6.3-8.2 Normal (applies to non-numeric re sults) [facility] ALBUMIN 3.5-5.0 Normal (applies to non-numeric resul ts) [facility] ALB/GLOB RATIO 1.1-1.8 Normal (applies to non-numeric r esults) [facility] BILIRUBIN, TOTAL 0.0-1.3 Normal (applies to non-numeric results) [facility] ALK PHOSPHATASE 38-126 Normal (applies to non-numeric results) [facility] AST (SGOT) Normal (applies to non-numeric results) [facility] <59 ALT (SGPT) 0-34 Normal (applies to non-numeric resul ts) [facility] Reference Range:Females <35Males <50 ID Date Data Source [id number] 07/20/2019 06:38:00 PM EDT [facility] [id number], Name Value Range Interpretation Code Description Data Arianne rce(s) Supporting Document(s) WBC 4.0-10.5 Above high normal [facility] RBC 4.00-5.20 Above high normal [facility] HEMOGLOBIN 12.2-15.5 Normal (applies to non-numeric resul ts) [facility] HEMATOCRIT 35.0-47.0 Normal (applies to non-numeric resul ts) [facility] MCV 77.0-100.0 Normal (applies to non-numeric resul ts) [facility] MCH 25.0-33.0 Normal (applies to non-numeric resul ts) [facility] MCHC 31.0-36.0 Normal (applies to non-numeric resul ts) [facility] RDW 12.0-17.0 Normal (applies to non-numeric resul ts) [facility] PLATELET COUNT 125-425 Normal (applies to non-numeric r esults) [facility] MPV 8.0-12.0 Normal (applies to non-numeric results) [facility] ABSOLUTE NEUT 1.4-8.4 Normal (applies to non-numeric re sults) [facility] ABSOLUTE LYMPH 1.0-4.0 Normal (applies to non-numeric r esults) [facility] ABSOLUTE MONO 0.0-1.5 Normal (applies to non-numeric re sults) [facility] ABSOLUTE EOS 0.0-0.7 Normal (applies to non-numeric res ults) [facility] ABSOLUTE BASO 0.0-0.1 Normal (applies to non-numeric re sults) [facility] NEUT% 35.0-75.0 Normal (applies to non-numeric resul ts) [facility] LYMPH% 20.0-42.0 Normal (applies to non-numeric resul ts) [facility] MONO% 0.0-15.0 Normal (applies to non-numeric resul ts) [facility] EOS% 0.0-10.0 Normal (applies to non-numeric resul ts) [facility] BASO% 0.0-2.0 Normal (applies to non-numeric resul ts) [facility] ID Date Data Source MA 07/22/2019 07:40:00 AM EDT [facility] Name Value Range Interpretation Code Description Data Arianne rce(s) Supporting Document(s) CLEAN VOIDED URINE CULT [facility] [id number], Name: BERKLEY LOPEZ Citlaly Littlejohn: 2000 Sex: Sierra# Loc Src Site [id number] VSLAB URNC 07/20/19 CLEAN VOIDED URINE CULT FINAL <10,000 CFU/mL NOA SUGGESTIVE OF UROGENITAL SKIN CONTAMINATIONKEY FOR RESULTS: - NEW RESULTATT.PHYS.: DINORAH DOOLEY LOCATION: [facility]--ADM.DATE: 07/20/19 PATIENT : BERKLEY LOPEZ MICROBIOLOGYPRINTED: 07/22/19 07:40 REGULAR 2 PAGE: 2 of 1 1 ID Date Data Source [id number] 07/20/2019 06:41:00 PM EDT [facility] [id number], Name Value Range Interpretation Code Description Data Arianne rce(s) Supporting Document(s) URINE COLOR YELLOW Normal (applies to non-numeric resu lts) [facility] URINE APPEARANCE CLEAR Normal (applies to non-numeric results) [facility] UR SPECIFIC GRAV 1.005-1.030 Normal (applies to non-numeri c results) [facility] URINE PH 5.0-7.5 Normal (applies to non-numeric resul ts) [facility] URINE LEUKOCYTE LARGE NEGATIVE Abnormal (applies to non-numeri c results) [facility] URINE NITRITE NEGATIVE NEGATIVE Normal (applies to non-numeric re sults) [facility] URINE PROTEIN TRACE MG/DL NEGATIVE Normal (applies to non-numeric r esults) [facility] URINE GLUCOSE NORMAL MG/DL NORMAL Normal (applies to non-numeric results) [facility] URINE KETONES TRACE MG/DL NEGATIVE Normal (applies to non-numeric r esults) [facility] UR UROBILINOGEN NORMAL MG/DL Normal (applies to non-numeri c results) [facility] NORMAL URINE BILIRUBIN NEGATIVE MG/DL NEGATIVE Normal (applies to non- numeric results) [facility] URINE OCCULT BLD NEGATIVE NEGATIVE Normal (applies to non-numeric results) [facility] URINE MICROSCOPIC INDICATED Abnormal (applies to non-nume ramone results) [facility] URINE C-S REQUEST see below [facility] SPECIMEN SENT TO MICROBIOLOGY ID Date Data Source [id number] 06/29/2019 02:10:35 PM EDT [place] flore[place] - [facility] EXAM:XR KNEE 3 VIEWS LEFT ORDERING [...] Thank you for referring your patient to [facility]. Name Value Range Interpretation Code Description Data Arianne rce(s) Supporting Document(s) ID Date Data Source [id number] 06/18/2019 08:11:00 PM EDT [facility] PROCEDURE: ABDOMEN, 2 VIEW X-RAY ORD#:[id number] DATE: 06/18/2019 19:02 ACC#: [id number]:PROCEDURE: ABDOMEN, 2 VIEW X-RAYDATE AND TIME: 06/18/2019 7:02 PM EDTHISTORY: *Pain. Constipation. Abdominal pain.COMPARISON: NoneTECHNIQUE: 3 frontal views of the abdomen.-IMPRESSION: Nonspecific, nonobstructive bowel gas pattern. No gross free air. Large amount of stool scattered within the colon and likely the rectum. Scattered air within the colon.Lung bases are clear. No abnormal calcifications. No acute osseous abnormality is identified.DWS: [id number] CUMULATIVE S RADIOLOGY FLUOROSCOPY TIME SINCE 07/30/2009: 0 sec (=0.00 min)EXAM DATE: 06/18/2019 19:02 ORDERED BY:JOSE MCKEE PACS IMAGES READ BY: KAYLA SCOTTIGNED 06/18/2019 20:09 BY KAYLA GODINEZ MD [facility] ACC#: [id number] Name Value Range Interpretation Code Description Data Arianne rce(s) Supporting Document(s) ID Date Data Source [id number] 05/26/2019 02:33:53 PM EDT [place] fl[place] - [facility] BERKLEY LOPEZ LPATIENT IDENTIFICATION :[facility] Name[facility] BERKLEY LOPEZ LMedical Record Number: [id number] Of : 2000CHIEF COMPLAINT:patient here for c/o [...] strained her back. 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 Low grade fever UA is essentially negative and no urinary symptoms. Patient declined urineculture. No fever inclinic.Ordered:naproxen, 500 mg = 1 tab(s), PO (oral), bid, PRN Pain, # 30 tab(s),Maintenance, [id number], 1 tab(s) PO (oral) bid,PRN:PainPOC Urine [...] EmergencyRoom or call 911.Thank you for choosing [facility]. We hope you are feeling [...] othersevere/emergent symptoms-go toER/call 911. With: DINORAH DOOLEYAddress: [facility] [address] [place] [phone]; This document was authenticated by Desiree Christina FNP DIRECTOR OF THE BIOPHYSICS FACILITY on 05/26/201902:33 PM Name Value Range Interpretation Code Description Data Arianne rce(s) Supporting Document(s) ID Date Data Source [id number] 05/16/2019 07:37:05 PM EDT [place] fl[place] - [facility] BERKLEY LOPEZ LPATIENT IDENTIFICATION :[facility] Name[facility] BERKLEY LOPEZ LMedical Record Number: [id number] Of : 2000CHIEF COMPLAINT:rm 1 c/o pain [...] 4 mg = 1 tab(s), PRN, SubLINGUAL, [id number] EXAM:VITALS:T: 36.9 C (Tympanic) T: 98.4 F [...] (04/27/19)COAGULATIOND-Dimer: 450 ng/mL FEU (04/27/19)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: 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 Name Value Range Interpretation Code Description Data [facility] rce(s) Supporting Document(s) ID Date Data Source [id number] 05/13/2019 05:32:45 PM EDT [place] flore[place] - [facility] LOPEZBERKLEY LHISTORY SOURCE:Patient , mother, nurse's notes reviewed, [...] shortness of breath. [facility] exposed to anyone [...] 4 mg = 1 tab(s), PRN, SubLINGUAL, [id number] ODT 4 mg oral tablet, disintegrating 4 [...] Virology LATEST RESULTS HISTORICALRESULTSInflu Spec Type 05/12/19 BRAKE LINING MAKER Swab 04/20/18NP Swab 14:17 Influenza A 05/12/19 [...] of each breast. OVERALL FINAL ASSESSMENTAssessment ACR [id number] 2: Benign Findings. RECOMMENDATIONNormal screening recommended according to [place] [employer] guidelines. This document has been authenticated by Harrison Molina MD on 05/01/2019 9:10AM.Thank you for referring your patient to [facility]. Signed By: Jesse LINARES, Harrison [...] PM.Thank you for referring your patient to [facility]. Signed By: José Ma XR [...] Thank you for referring your patient to [facility]. Signed By: WILFREDO ALBRIGHT CT [...] PM.Thank you for referring your patient to [facility]. Signed By: Kit Lerma MD [...] PM.Thank you for referring your patient to [facility]. Signed By: Chidi Brody MD [...] Thank you for referring your patient to [facility]. Signed By: WILFREDO ALBRIGHTCARDIOLOGY RESULTS:No [...] rce(s) Supporting Document(s) ID Date Data Source [id number] 05/12/2019 02:39:15 PM EDT [place] - [facility] Name Value Range Interpretation Code Description Data Arianne rce(s) Supporting Document(s) RSV Screen Negative [place] Krishna lorraine - [facility] Respiratory Syncytial Virus Screening is performed by Nucleic Acid Amplification Testing (NAAT). ID Date Data Source [id number] 05/12/2019 02:39:04 PM EDT [place] r[place] - [facility] Name Value Range Interpretation Code Description Data Arianne rce(s) Supporting Document(s) Influenza A Negative [place]ja rddallin - [facility] Rapid Influenza testing performed by Nuc leic Acid Amplification Testing (NAAT) Influenza B Negative [place] rddall[place] - [facility] Influ Spec Type [place] - [facility] ID Date Data Source [id number] 05/12/2019 02:27:25 PM EDT [place] rddallin - [facility] Name Value Range Interpretation Code Description Data Arianne rce(s) Supporting Document(s) Rapid Grp A Neg [place] - [facility] Added on by Discern Audit Strep A Neg cmt [place] - [facility] ID Date Data Source [id number] 05/12/2019 02:27:25 PM EDT [place] rdes - [facility] Name Value Range Interpretation Code Description Data Arianne rce(s) Supporting Document(s) Rapid Grp A Strep, Throat Negative [place] [facility] Rapid Group A Streptococcus Screen is pe rformed by Enzyme Immunoassay. ID Date Data Source [id number] 05/12/2019 01:42:04 PM EDT [place] flore[place] - [facility] EXAM:US EXTREMITY VENOUS LOWER LEFTORDER [...] Thank you for referring your patient to [facility]. Name Value Range Interpretation Code Description Data Arianne rce(s) Supporting Document(s) ID Date Data Source [id number] 05/01/2019 09:12:48 AM EST [place] fl[place] - [place] EXAM: US BREAST BILATORDERING PROVIDER:Madhavi [...] appearance of each breast.OVERALL FINAL ASSESSMENTAssessment ACR [id number] 2: Benign Findings.RECOMMENDATIONNormal screening recommended according to [place] [employer] guidelines.This document has been authenticated by Harrison Molina MD on 05/01/2019 9:10AM. Thank you for referring your patient to [facility]. Name Value Range Interpretation Code Description Data Arianne rce(s) Supporting Document(s) ID Date Data Source [id number] 04/27/2019 05:09:56 PM EST [place] fl[place] - [facility] BERKLEY LOPEZ [facility] SOURCE:Patient , previous charts reviewed, nurses notes [...] during her . She's been eating [employer], hamburgers.Fabricio she feltfine. Yesterday vomited all day and [...] 35.8 04/03/2033.4 14:03 Monocytes, auto 04/27/19 7.1 205.3 14:03 Eosinophils, auto 04/27/19 1.9 201.3 14:03 Basophils, auto 04/27/19 1.0 200.7 14:03 COAGULATION LATEST RESULTS HISTORICALRESULTSD-Dimer 04/27/19 450 High 14:03 ROUTINE CHEMISTRY LATEST RESULTS HISTORICALRESULTSSodium Level 04/27/19 140 14:03 Potassium Level 04/27/19 3.9 .7 14:03 Chloride 04/27/19 111 High High 14:03 [...] 11/28/18<0.02 14:03 TESTING LATEST RESULTS HISTORICALRESULTSSerum Qualitative 02/27/20 Negative 04/03/19NegativePregnancy 14:03 XR Chest 2 Views [...] rce(s) Supporting Document(s) ID Date Data Source [id number] 04/27/2019 02:53:12 PM EST [place] - [facility] EXAM:XR CHEST 2 VIEWSORDERING PROVIDER:Kathy MckennaCLINICAL HISTORY:Chest pain.COMPARISON STUDY:12/02/2018.TECHNIQUE:2 views.FINDINGS:The heart is normal in size. No focal pulmonary abnormality is identified.The bones and soft tissues are unremarkable.IMPRESSION: No evidence of acute pulmonary disease.This document has been authenticated by José Ma MD on 04/27/2019 2:51PM. Thank you for referring your patient to [facility]. Name Value Range Interpretation Code Description Data Arianne rce(s) Supporting Document(s) ID Date Data Source [id number] 04/27/2019 04:17:48 PM EST [place] - [facility] Name Value Range Interpretation Code Description Data Arianne rce(s) Supporting Document(s) D-Dimer 450 ng/mL FEU <=499 [place] [facility] * Diagnosis should not be based solely o n the results of this test.Results should be interpreted in conjunction with clinical findings.Negative Predictive Value for thromboembolism for D-Dimer test results below the cut off of 500 ng/ml FEU is 98%. ID Date Data Source [id number] 04/27/2019 02:39:21 PM EST [place] r[place] - [facility] Name Value Range Interpretation Code Description Data Arianne rce(s) Supporting Document(s) Serum Qualitative Negative [place] [facility] ID Date Data Source [id number] 04/27/2019 02:26:23 PM EST [place]des - [facility] Name Value Range Interpretation Code Description Data Arianne rce(s) Supporting Document(s) GFR-KIEL >60 mL/min/1.73m2 >=60 [facility] eGFR added on by Discern Expert.* GFR-NA A has been calculated for Non- Americans, GFR-AA has been calculated for Americans. They are based on the standardized IDMA creatinine value and do not include the [...] [facility] [place] - [facility] ID Date Data Source [id number] 04/27/2019 02:26:22 PM EST [place] - [facility] Name Value Range Interpretation Code Description Data Arianne rce(s) Supporting Document(s) Troponin-I <0.02 ng/mL <=0.04 [place] r[place] - [facility] Normal: <0.04 ng/mLIschemic disease: 0.04-0.10 ng/mLConsistent with AMI: > 0.10 ng/mLPatients taking Biotin supplements in excess of the daily recommended allowance, may have falsely elevated results due to interference of Biotin in the assay measurement. ID Date Data Source [id number] 04/27/2019 02:26:21 PM EST [place] - [facility] Name Value Range Interpretation Code Description Data Arianne rce(s) Supporting Document(s) Sodium Level 140 mmol/L 136-144 [place] Lo urdes - [facility] Potassium Level 3.9 mmol/L 3.6-5.1 [place] - [facility] Chloride 111 mmol/L 98-110 Above high normal [facility] - [facility] CO2 20 mmol/L 22-32 Below low normal [facility] AGAP 9 mEq/L 4-14 [place] Lour lorraine - [facility] Glucose Level. 114 mg/dL 65-100 Above high normal [facility] - [facility] If patient is taking either of these dominguez gs, there has been a bias identified:Sulfasalazine may cause falsely decreased resultsSulfaspyridine may cause falsely increased results BUN 11 mg/dL 8-23 [place] Lour lorraine - [facility] Creatinine 0.67 mg/dL 0.40-1.10 [place] Lour lorraine - [facility] Calcium 9.2 mg/dL 8.5-10.5 [place] Lour lorraine - [facility] Total Protein 7.6 gm/dL 6.4-8.2 [place] L zee - [facility] Globulin 3.6 gm/dL 1.5-3.8 [place] Lour lorraine - [facility] Albumin Level 4.0 gm/dL 3.3-4.8 [place] zee - [facility] Bilirubin Total. 0.1 mg/dL 0.2-1.0 Below low normal [facility] - [facility] AST 12 unit/L 15-41 Below low normal [facility] - [facility] If patient is taking either of these dominguez gs, there has been a bias identified:Sulfasalazine may cause falsely decreased resultsSulfaspyridine may cause falsely decreased results Alk Phos 88 unit/L 45-117 [place] Lour l[place]raine - [facility] ALT 28 unit/L 14-54 [place] Lour lorraine - [facility] If patient is taking either of these dominguez gs, there has been a bias identified:Sulfasalazine may cause falsely decreased resultsSulfaspyridine may cause falsely decreased results ID Date Data Source [id number] 04/27/2019 02:07:48 PM EST [place] - [facility] Name Value Range Interpretation Code Description Data Arianne rce(s) Supporting Document(s) WBC 8.3 K/uL 4.0-10.0 [place] Lour lorraine - [facility] RBC 4.80 Million/mcL 4.20-5.40 [facility] - [facility] Hgb 13.3 gm/dL 12.0-16.0 [place] Lour lorraine - [facility] Hct 39.7 % 36.0-47.0 [place] Lour lorraine - [facility] MCV 82.7 fL 82.0-98.0 [place] Lour lorraine - [facility] MCH 27.8 pg 26.0-33.0 [place] Lour lorraine - [facility] MCHC 33.6 gm/dL 32.0-36.0 [place] Lour lorraine - [facility] RDW 13.8 % 11.4-14.4 [place] Lour lorraine - [facility] Platelet 314 K/mcL 150-400 [place] Lour lorraine - [facility] MPV 8.9 fL 7.4-10.4 [place] Lour lorraine - [facility] ID Date Data Source [id number] 04/27/2019 02:07:48 PM EST [place]des - [facility] Name Value Range Interpretation Code Description Data Arianne rce(s) Supporting Document(s) Neutrophils, auto 54.2 % 40.0-80.0 [facility] Neutrophils, absolute 4.5 K/mcL 1.5-7.7 [facility] - [facility] Lymphocytes, auto 35.8 % 15.0-40.0 [facility] [place] [facility] Lymphocytes, absolute 3.0 K/mcL 1.5-4.0 [facility] - [facility] Monocytes, auto 7.1 % 0.0-12.0 [place] - [facility] Monocytes, absolute 0.6 K/mcL 0.2-1.0 [facility] - [facility] Eosinophils, auto 1.9 % 0.0-5.0 [facility] Eosinophils, absolute 0.2 K/mcL 0.0-0.3 [facility] - [facility] Basophils, auto 1.0 % 0.0-2.0 [place] - [facility] Basophils, absolute 0.1 K/mcL 0.0-0.1 [facility] - [facility] ID Date Data Source [id number] 04/24/2019 10:34:40 AM EST [place] - [facility] EXAM:XR KNEE 1 OR 2 VIEWS LEFTORDERING [...] Thank you for [facility] your [facility]. Name Value Range Interpretation Code Description Data Arianne rce(s) Supporting Document(s) ID Date Data Source [id number] 04/10/2019 03:08:28 PM EST [place] - [facility] BERKLEY LOPEZ is a pleasant pat ient [...] prepped with chlorhexidine 1%. Using ultrasound assistance, [id number] Tuohy epiduralneedle was inserted towards the adductor [...] rce(s) Supporting Document(s) ID Date Data Source [id number] 04/10/2019 03:02:28 PM EST [place] flore[place] [facility] ABBOTT LREPORT OF OPERATION DA TE OF PROCEDURE: [...] limb was e xsanguinated with Esmarch andtourniquet [id number] mmHg. I then began with a standard [...] DRAINS/PACKS:none This operative report was dictated using StudyTube software. Every attempt tocorrect verbalinaccuracies have been made.This document was authenticated by Salma Alvarado MD MD on04/10/2019 03:02 PM Name Value Range Interpretation Code Description Data Arianne rce(s) Supporting Document(s) ID Date Data Source [id number] 04/10/2019 02:41:43 PM EST [place] Tonja flore[place] - [facility] EXAM:XR KNEE 1 OR 2 VIEWS LEFTORDERING P ROVIDER:MD Salma Alvarado MDCLINICAL HISTORY:Intraoperative fluoroscopy.COMPARISON STUDY:None.TECHNIQUE:4 images. 58 seconds of fluoroscopy.FINDINGS: Fluoroscopic documentation of procedure without radiologist present. Pleasesee the operative report.IMPRESSION: Intraoperative fluoroscopy This document has been authenticated by José aM MD on 04/10/2019 2:39PM. Thank you for referring your patient to [facility]. Name Value Range Interpretation Code Description Data [facility] rce(s) Supporting Document(s) ID Date Data Source [id number] 04/10/2019 08:12:36 PM EST [place] Tonja florez - [facility] Name Value Range Interpretation Code Description Data [facility] rce(s) Supporting Document(s) Finger Stick Blood Sugar 95 mg/dL 65-100 [place] - [facility] The POC Glucose meter technical range is 30 - 550 mg/dLA glucose less than 30 mg/dLwill chart as CORBY glucose greater than 550 mg/dL will display as HI ID Date Data Source [id number] 04/03/2019 04:39:33 PM EST [place] [facility] [facility] BERKLEY LOPEZ LHISTORY SOURCE:Patient and nurse's notes reviewedCHIEF COMPLAINT:Pt reports left lower abdominal pain, vomiting blood tinged fluids, and unableto urinate [id number] last night. Pt reports hx of urinary [...] 04/03/19 14.1 02/18/1913.7 12:55 Platelet 04/03/19 302 72 12:55 DIFFERENTIAL LATEST RESULTS HISTORICALRESULTSNeutrophils, absolute 04/03/19 [...] 04/03/19 Clear 11/28/18Cloudy Abnormal 14:01 UA Specific Vadito 04/03/19 1.027 High .029 High 14:01 UA [...] 140 40 12:55 Potassium Level 04/03/19 3.7 193.6 12:55 [...] patient to [facility]. Signed By: Abdi Lerma MD [...] NO or N/A:naThis document was authenticated by Toñito Avina MD, MD on 04/03/2019 04:39 PM Name Value Range Interpretation Code Description Data Arianne rce(s) Supporting Document(s) ID Date Data Source [id number] 04/03/2019 02:24:26 PM EST [place] Tonja florez - [facility], [facility] EXAM:Noncontrast CT of the abdomen and [...] Thank you for referring your patient to [facility]. Name Value Range Interpretation Code Description Data Arianne rce(s) Supporting Document(s) ID Date Data Source [id number] 04/05/2019 09:25:49 AM EST [place] Tonja rdes - [facility] Name BERKLEY LOPEZ hdailyn 2000Sex FEMALE Age 18 yearsPatient Acct. No. [id number] ER OLLAttending ER Physician Fabrice LINARES, [facility] Phys[facility] DINORAH DOOLEYMicrobiologyS = Susceptible [...] Predominating PathogenPerforming Locationsf1: This test was performed at:[facility], [address] [place] [address], [facility]- Name Value Range Interpretation Code Description Data Arianne rce(s) Supporting Document(s) ID Date Data Source [id number] 04/03/2019 02:14:00 PM EST [place] Tonja rdes - [facility] Name Value Range Interpretation Code Description Data Arianne rce(s) Supporting Document(s) UA Squamous Epithelial Cells <2 /HPF 0-5 [place] - [facility] Added as per Lab reflex policy GL_UA_MIC RO_AV_R_UC UA WBC w/UC 2 /HPF 0-5 [place] Tonja rdes - [facility] UA RBC <2 /HPF 0-2 [place] Lour lorraine - [facility] UA Mucous Absent [place] Lour lorraine - [facility] ID Date Data Source [id number] 04/03/2019 02:07:51 PM EST [place] Tonja rdes - [facility] Name Value Range Interpretation Code Description Data Arianne rce(s) Supporting Document(s) UA Color Yellow [place] Lour lorraine - [facility] UA Clarity Clear [place] Lour lorraine - [facility] UA pH 5.0 5.0-8.0 [place] Lour lorraine - [facility] UA Specific [place]ad[place] 1.027 1.005-1.025 Above high normal [place] Sarah - [facility] UA Leuk w/uc Negative AB [place] Lo urdes - [facility] UA Nitrite w/UC Negative [place] Sarah - [facility] UA Blood w/UC Negative [place] L ourdes - [facility] UA Bilirubin Negative [place] Lo urdes - [facility] If the dipstick bilirubin results are 'P resumptive Positive' the result will be confirmed with an Ictotest due to possible interference. UA Urobilinogen Normal [place] Sarah - [facility] UA Glucose Normal [place] Lour lorraine - [facility] UA Ketones Negative [place] Lour lorraine - [facility] UA Protein w/UC Negative [place] Sarah - [facility] UA Ascorbic Acid Negative [facility] The presence of ascorbic acid may interf ere with the detection of blood, glucose, nitrite and bilirubin on the biochemical strip. Detectable limits of >20mg/dL will reflex a microscopic exam. ID Date Data Source [id number] 04/03/2019 01:48:27 PM EST [place] - [facility] BERKLEY LOPEZ LChief Complaint: Patie nt states [...] rce(s) Supporting Document(s) ID Date Data Source [id number] 04/03/2019 03:16:39 PM EST [place] - [facility] Name Value Range Interpretation Code Description Data Arianne rce(s) Supporting Document(s) Lipase Level 103 unit/L 73-393 [place] [facility] - [facility] ID Date Data Source [id number] 04/03/2019 03:16:41 PM EST [place] - [facility] Name Value Range Interpretation Code Description Data Arianne rce(s) Supporting Document(s) GFR-KIEL >60 mL/min/1.73m2 >=60 [facility] eGFR added on by Discern [...] [facility] - [facility] ID Date Data Source [id number] 04/03/2019 03:16:39 PM EST [place] Ton[place] - [facility] Name Value Range Interpretation Code Description Data Arianne rce(s) Supporting Document(s) C-Reactive Protein. 1.0 mg/dL <=1.0 [facility] - [facility] ID Date Data Source [id number] 04/03/2019 03:16:39 PM EST [place] r[place] - [facility] Name Value Range Interpretation Code Description Data Arianne rce(s) Supporting Document(s) Sodium Level 140 mmol/L 136-144 [place] Lo urdes - [facility] Potassium Level 3.7 mmol/L 3.6-5.1 [place] Sarah - [facility] Chloride 112 mmol/L 98-110 Above high normal [facility] - [facility] CO2 21 mmol/L 22-32 Below low normal [facility] AGAP 7 mEq/L 4-14 [place] Lour lorraine - [facility] Glucose Level. 148 mg/dL 65-100 Above high normal [facility] If patient is taking either of these dominguez gs, there has been a bias identified:Sulfasalazine may cause falsely decreased resultsSulfaspyridine may cause falsely increased results BUN 13 mg/dL 8-23 [place] Lour lorraine - [facility], [facility] Creatinine 0.67 mg/dL 0.40-1.10 [place] Lour lorraine - [facility], [facility] Calcium 9.4 mg/dL 8.5-10.5 [place] Lour lorraine - [facility], [facility] Total Protein 7.6 gm/dL 6.4-8.2 [place] our[place] - [facility], [facility] Globulin 3.6 gm/dL 1.5-3.8 [place] Lour lorraine - [facility], [facility] Albumin Level 4.0 gm/dL 3.3-4.8 [place] L ourlorraine - [facility], [facility] Bilirubin Total. 0.3 mg/dL 0.2-1.0 [facility] - [facility] AST 13 unit/L 15-41 Below low normal [facility] - [facility] If patient is taking either of these dominguez gs, there has been a bias identified:Sulfasalazine may cause falsely decreased resultsSulfaspyridine may cause falsely decreased results Alk Phos 89 unit/L 45-117 [place] Christenur lorraine - [facility], [facility] ALT 32 unit/L 14-54 [place] Krishna lorraine - [facility] If patient is taking either of these dominguez gs, there has been a bias identified:Sulfasalazine may cause falsely decreased resultsSulfaspyridine may cause falsely decreased results ID Date Data Source [id number] 04/03/2019 01:23:25 PM EST [place] r[place] - [facility] Name Value Range Interpretation Code Description Data Arianne rce(s) Supporting Document(s) Serum Qualitative Negative [place] Sarah - [facility] ID Date Data Source [id number] 04/03/2019 01:03:11 PM EST [place] r[place] - [facility] Name Value Range Interpretation Code Description Data Arianne rce(s) Supporting Document(s) WBC 8.1 K/uL 4.0-10.0 [place] Lour lorraine - [facility], [facility] RBC 4.84 Million/mcL 4.20-5.40 [facility] - [facility] Hgb 13.3 gm/dL 12.0-16.0 [place] Lour lorraine - [facility], [facility] Hct 40.0 % 36.0-47.0 [place] Lour lorraine - [facility], [facility] MCV 82.7 fL 82.0-98.0 [place] Lour lorraine - [facility], [facility] MCH 27.4 pg 26.0-33.0 [place] Lour lorraine - [facility], [facility] MCHC 33.1 gm/dL 32.0-36.0 [place] Lour lorraine - [facility], [facility] RDW 14.1 % 11.4-14.4 [place] Lour lorraine - [facility] Platelet 302 K/mcL 150-400 [place] Lour lorraine - [facility], [facility] MPV 9.2 fL 7.4-10.4 [place] Lour lorraine - [facility] ID Date Data Source [id number] 04/03/2019 01:03:11 PM EST [place] Tonja rdes - [facility] Name Value Range Interpretation Code Description Data Arianne rce(s) Supporting Document(s) Neutrophils, auto 58.3 % 40.0-80.0 [facility] - [facility] Neutrophils, absolute 4.7 K/mcL 1.5-7.7 [facility] - [facility], [facility] Lymphocytes, auto 34.4 % 15.0-40.0 [facility] - [facility] Lymphocytes, absolute 2.8 K/mcL 1.5-4.0 [facility] - [facility] Monocytes, auto 5.3 % 0.0-12.0 [place] Sarah - [facility] Monocytes, absolute 0.4 K/mcL 0.2-1.0 [facility] - [facility] Eosinophils, auto 1.3 % 0.0-5.0 [facility] - [facility] Eosinophils, absolute 0.1 K/mcL 0.0-0.3 [facility] - [facility] Basophils, auto 0.7 % 0.0-2.0 [place] - [facility] Basophils, absolute 0.1 K/mcL 0.0-0.1 [facility] - [facility] ID Date Data Source [id number] 03/30/2019 04:42:08 PM EST [place]des - [facility] MARLEN LOPEZLEY LPATIENT IDENTIFICATION :[facility]: BERKLEY LOPEZ LMedical Record Number: [id number] Of : 2000CHIEF COMPLAINT:rm 6 has been [...] as shehas abnormalmenses.requesting work note.Otherwise ana rosa العلي well denies recent illness, respiratory symptoms, fever.REVIEW OF [...] (03/26/19)Protein Urine Dipstick POC Clinic: Negative (03/26/19)Specific [place] Dipstick POC Clinic: 1.030 (03/26/19)Urobilinogen Urine Dipstick [...] good understanding. *This note was completed using [employer] Dictation System. Reasonable attemptshave been made tocorrect errors. Please excuse any typographical errors. For clarifications,please contact ouroffice. Ordered:nitrofurantoin, 100 mg = 1 cap(s), PO (oral), bid, # 10 cap(s), Maintenance,Pharmacy: [id number], 1 cap(s) PO (oral) bid,x5 da [...] rce(s) Supporting Document(s) ID Date Data Source [id number] 03/28/2019 07:35:16 AM EST [place] Tonja florez - [facility], [facility] Name BERKLEY LOPEZ hdate 2000Sex FEMALE Age 18 yearsPatient Acct. No. [id number] LCB OLLAttending ER Physician Zee Gonzalez [facility] Care Physician DINORAH DOOLEYMicrobiologyS = Susceptible [...] Predominating PathogenPerforming Locationsf1: This test was performed at:[facility], [address] [place] [address], [facility]- Name Value Range Interpretation Code Description Data Arianne rce(s) Supporting Document(s) ID Date Data Source [id number] 02/18/2019 05:02:53 PM EST [place] Tonja florez - [facility] SOURCE:History is from patient I reviewed the [...] well-nourished woman who appears her stated age. Nryfff-gr-bbrsxtcxiwubilvc.HEAD: Normocephalic/atraumatic.EYES: Pupils equal round reactive to light [...] 4.2 .2 10:13 Lymphocytes, absolute 02/18/19 1.6 193.2 10:13 Monocytes, absolute 02/18/19 0.7 .8 10:13 [...] 8.9 199.2 10:13 Albumin Level 02/18/19 3.6 193.9 10:13 Total Protein 02/18/19 7.1 197.8 10:13 Globulin 02/18/19 3.5 193.9 High 10:13 Alk Phos 02/18/19 93 12/02/1989 [...] rce(s) Supporting Document(s) ID Date Data Source [id number] 02/18/2019 12:31:16 PM EST [place] Tonja florez - [facility], [facility] EXAM:CT ABD/PELVIS W/IV ONLY CONTRAST OR [...] [facility] Name Value Range Interpretation Code Description Data Arianne rce(s) Supporting Document(s) ID Date Data Source [id number] 02/18/2019 11:09:02 AM EST [place] Tonja florez - [facility] EXAM: US PELVIS TRANSVAGINAL ONLY ORDERI [...] you for [facility] your [facility] Name Value Range Interpretation Code Description Data Arianne rce(s) Supporting Document(s) ID Date Data Source [id number] 02/18/2019 10:47:32 AM EST [place] Tonja florez - [facility] Name Value Range Interpretation Code Description Data Arianne rce(s) Supporting Document(s) APTT 27 second(s) 24-33 [place] Christen holliday - [facility] Suggested therapeutic range for unfracti onated Heparin is 2 to 2.5 times the mean normal value. Levels below 60 seconds may indicate insufficient anticoagulant.For therapeutic monitoring of various direct thrombin inhibitors, please refer to Micromedex or LexiComp on the [facility]. ID Date Data Source [id number] 02/18/2019 11:07:49 AM EST [place] Tonja rdes - [facility] Name Value Range Interpretation Code Description Data Arianne rce(s) Supporting Document(s) Serum Qualitative Negative [place] Sarah - [facility] ID Date Data Source [id number] 02/18/2019 10:46:47 AM EST [place] Ton[place] rdes - [facility] Name Value Range Interpretation Code Description Data Arianne rce(s) Supporting Document(s) Lipase Level 96 unit/L 73-393 [place] Christen holliday - [facility] ID Date Data Source [id number] 02/18/2019 10:46:47 AM EST [place] Tonja rdes - [facility] Name Value Range Interpretation Code Description Data Arianne rce(s) Supporting Document(s) C-Reactive Protein. 3.3 mg/dL <=1.0 Above high normal [place] Sarah - [facility] ID Date Data Source [id number] 02/18/2019 10:46:48 AM EST [place] Tonja rdes - [facility] Name Value Range Interpretation Code Description Data Arianne rce(s) Supporting Document(s) GFR-KIEL >60 mL/min/1.73m2 >=60 [facility] eGFR added on by Discern [...] [facility] - [facility] ID Date Data Source [id number] 02/18/2019 10:46:46 AM EST [place] Tonja rdes - [facility] Name Value Range Interpretation Code Description Data Arianne rce(s) Supporting Document(s) Sodium Level 140 mmol/L 136-144 [place] Lo urdes - [facility] Potassium Level 3.6 mmol/L 3.6-5.1 [place] Sarah - [facility] Chloride 112 mmol/L 98-110 Above high normal [facility] - [facility] CO2 24 mmol/L 22-32 [place] Lour lorraine - [facility] AGAP 4 mEq/L 4-14 [place] ur lorraine - [facility] Glucose Level. 91 mg/dL 65-100 [place] Sarah - [facility] If patient is taking either of these dominguez gs, there has been a bias identified:Sulfasalazine may cause falsely decreased resultsSulfaspyridine may cause falsely increased results BUN 15 mg/dL 8-23 [place] Lour lorraine - [facility] Creatinine 0.80 mg/dL 0.40-1.10 [place] Lour lorraine - [facility] Calcium 8.9 mg/dL 8.5-10.5 [place] ur lorraine - [facility] Total Protein 7.1 gm/dL 6.4-8.2 [place] L ourlorraine - [facility] Globulin 3.5 gm/dL 1.5-3.8 [place] Lozenon lorraine - [facility] Albumin Level 3.6 gm/dL 3.3-4.8 [place] L zee - [facility] Bilirubin Total. 0.4 mg/dL 0.2-1.0 [facility] - [facility] AST 11 unit/L 15-41 Below low normal [facility] - [facility] If patient is taking either of these dominguez gs, there has been a bias identified:Sulfasalazine may cause falsely decreased resultsSulfaspyridine may cause falsely decreased results Alk Phos 93 unit/L 45-117 [place] Krishna peters - [facility] ALT 47 unit/L 14-54 [place] Krishna peters - [facility] If patient is taking either of these dominguez gs, there has been a bias identified:Sulfasalazine may cause falsely decreased resultsSulfaspyridine may cause falsely decreased results ID Date Data Source [id number] 02/18/2019 10:46:46 AM EST [place] Tonja rdes - [facility] Name Value Range Interpretation Code Description Data Arianne rce(s) Supporting Document(s) Amylase Level 28 unit/L 28-100 [place] Jessica koch - [facility] ID Date Data Source [id number] 02/18/2019 10:17:55 AM EST [place] Tonja rdes - [facility] Name Value Range Interpretation Code Description Data Arianne rce(s) Supporting Document(s) WBC 6.6 K/uL 4.0-10.0 [place] Krishna peters - [facility] RBC 4.50 Million/mcL 4.20-5.40 [facility] - [facility] Hgb 12.4 gm/dL 12.0-16.0 [place] Lour lorraine - [facility] Hct 37.2 % 36.0-47.0 [place] Lour lorraine - [facility] MCV 82.6 fL 82.0-98.0 [place] Lour lorraine - [facility] MCH 27.5 pg 26.0-33.0 [place] Lour lorraine - [facility] MCHC 33.3 gm/dL 32.0-36.0 [place] Lour lorraine - [facility] RDW 13.7 % 11.4-14.4 [place] Lour lorraine - [facility] Platelet 272 K/mcL 150-400 [place] Lour lorraine - [facility] MPV 8.3 fL 7.4-10.4 [place] Lour lorraine - [facility] ID Date Data Source [id number] 02/18/2019 10:17:54 AM EST [place] Tonja rdes - [facility] Name Value Range Interpretation Code Description Data Arianne rce(s) Supporting Document(s) Neutrophils, auto 63.8 % 40.0-80.0 [facility] Neutrophils, absolute 4.2 K/mcL 1.5-7.7 [facility] - [facility] Lymphocytes, auto 23.6 % 15.0-40.0 [facility] - [facility] Lymphocytes, absolute 1.6 K/mcL 1.5-4.0 [facility] - [facility] Monocytes, auto 10.9 % 0.0-12.0 [place] - [facility] Monocytes, absolute 0.7 K/mcL 0.2-1.0 [facility] - [facility] Eosinophils, auto 0.9 % 0.0-5.0 [facility] - [facility] Eosinophils, absolute 0.1 K/mcL 0.0-0.3 [facility] - [facility] Basophils, auto 0.8 % 0.0-2.0 [place] - [facility] Basophils, absolute 0.1 K/mcL 0.0-0.1 [facility] - [facility] Procedure Social History Code Duration Value Status Description Data Source(s ) Alcohol intake 12/20/2019 12:00:00 AM EDT Current non-d chana of alcohol (finding) completed Current non-drinker of alcohol (finding) [facility] Tobacco use and exposure 12/20/2019 12:00:00 AM EDT Never used co mpleted Never used [facility] Smoking 12/20/2019 12:00:00 AM EDT Never smoker completed Never s [facility] 06/29/2019 12:00:00 AM EDT Patient is a current smoker, smokes every day completed Patient is a current smoker, smokes every day [facility] ( [facility]) ASSERTION 05/08/2019 12:00:00 AM EDT soda and coffee completed soda and coffee [facility] Vital Signs ID Date Data Source UNK Name Value Range Interpretation Code Description Data Source(s) Body weight Measured 240 lb 14 oz 240 lb 14 oz [place] - [facility] 2Result Comment: Result placed secondary from kg, converted to lbs Body height 66.0 [in_i] 66.0 [in_i] [place] L zee - [facility] 1Result Comment: Result placed secondary from cm, converted to Inches Deprecated Oxygen saturation in Capillary blood by Oximetry 98 % 90-100 Normal (applies to non-numeric results) 98 % [place] [facility] - [facility] Heart rate 100 /min 60-100 Normal (applies to non-numeric resul ts) 100 /min [place] [facility] - [facility] Systolic blood pressure 90-140 Normal (applies t o non-numeric results) mm[Hg] [place] - [facility] Body temperature 98.6 [degF] 97.9-99.7 Normal (applies to non-n umeric results) 98.6 [degF] [place] - [facility] Deprecated Oxygen saturation in Capillary blood by Oximetry 97 % 90-100 Normal (applies to non-numeric results) 97 % [place] [facility] - [facility] Respiratory rate 20 /min 14-20 Normal (applies to non-numeric results) 20 /min [place] - [facility] Heart rate 104 /min 60-100 Above high normal 104 /min [facility] Systolic blood pressure 90-140 Normal (applies t o non-numeric results) mm[Hg] [place] - [facility] Body temperature 98.4 [degF] 97.9-99.7 Normal (applies to non-n umeric results) 98.4 [degF] [place] [facility] Body weight Measured 244 lb 8 oz 244 lb 8 oz As [facility] 2Result Comment: Result placed secondary from kg, converted to lbs Body height 66.0 [in_i] 66.0 [in_i] [place] [facility] 1Result Comment: Result placed secondary from cm, converted to Inches Deprecated Oxygen saturation in Capillary blood by Oximetry 97 % 90-100 Normal (applies to non-numeric results) 97 % [place] [facility] Respiratory rate 20 /min 14-20 Normal (applies to non-numeric results) 20 /min [place] [facility] Heart rate 104 /min 60-100 Above high normal 104 /min [facility] Systolic blood pressure 90-140 Normal (applies t o non-numeric results) mm[Hg] [place] [facility] Body temperature 98.4 [degF] 97.9-99.7 Normal (applies to non-n umeric results) 98.4 [degF] [place] [facility] Body weight Measured 244 lb 8 oz 244 lb 8 oz As [facility] 2Result Comment: Result placed secondary from kg, converted to lbs Body height 66.0 [in_i] 66.0 [in_i] [place] [facility] 1Result Comment: Result placed secondary from cm, converted to Inches Body mass index (BMI) [Ratio] 38.96 kg/meter(2) Overweight 38.96 kg/meter(2) [facility] Respiratory rate 18 /min 18 /min [facility] Body temperature 97.90 [degF] 97.90 [degF] [facility] Heart rate 94 /min 94 /min [facility] Diastolic blood pressure 84 mm[Hg] 84 mm[Hg] [facility] Systolic blood pressure 138 mm[Hg] 138 mm[Hg] [facility] Body weight Measured 241.41 [lb_av] 241.41 [lb_ av] [facility] Body height 66.00 [in_us] 66.00 [in_us] [facility] Body weight Measured 241 lb 7 oz 241 lb 7 oz As [facility] 2Result Comment: Result placed secondary from kg, converted to lbs Body height 66.0 [in_i] 66.0 [in_i] [place] [facility] 1Result Comment: Result placed secondary from cm, converted to Inches Deprecated Oxygen saturation in Capillary blood by Oximetry 98 % 90-100 Normal (applies to non-numeric results) 98 % [place] [facility] Respiratory rate 20 /min 14-20 Normal (applies to non-numeric results) 20 /min [place] [facility] Heart rate 97 /min 60-100 Normal (applies to non-numeric resul ts) 97 /min [place] [facility] Systolic blood pressure 90-140 Normal (applies t o non-numeric results) mm[Hg] [place] [facility] Body temperature 98.1 [degF] 97.9-99.7 Normal (applies to non-n umeric results) 98.1 [degF] [place] [facility] Body weight Measured 241 lb 7 oz 241 lb 7 oz [facility] 2Result Comment: Result placed secondary from kg, converted to lbs Body height 66.0 [in_i] 66.0 [in_i] [place] [facility] 1Result Comment: Result placed secondary from cm, converted to Inches Deprecated Oxygen saturation in Capillary blood by Oximetry 98 % 90-100 Normal (applies to non-numeric results) 98 % [place] [facility] Respiratory rate 20 /min 14-20 Normal (applies to non-numeric results) 20 /min [place] [facility] Heart rate 97 /min 60-100 Normal (applies to non-numeric resul ts) 97 /min [place] [facility] Systolic blood pressure 90-140 Normal (applies t o non-numeric results) mm[Hg] [place] [facility] Body temperature 98.1 [degF] 97.9-99.7 Normal (applies to non-n umeric results) 98.1 [degF] [place] [facility] Patient Treatment Plan of Care Planned Activity Planned Date Details Description Data Source (s) Flonase Allergy Relief 50 mcg/actuation nasal spray,[facility] 06/08/2016 12:00:00 AM EDT [facility] Serv[facility] Previfem 0.25 mg-35 mcg tablet [facility] Lactobacillus rhamnosus GG [id number] UNT Oral Capsule [facility] trazodone 50 mg tablet [facility] Hyoscyamine Sulfate 0.125 MG/ML Oral Solution [facility] Briellyn 0.4 mg-35 mcg tablet [facility] Clonazepam 1 MG Oral Tablet [facility] methylphenidate ER 50 mg multiphase capsule 30-70,extended release [facility] Metformin hydrochloride 500 MG Oral Tablet [facility]
[2020-03-19 18:41] LABS: BASO # 0.1 10^3/uL (0.0-0.2); BASO % 0.9 % (0.0-1.0); EOS # 0.4 10^3/uL (0.0-0.5); EOS % 4.2 % (0.0-3.0); HEMATOCRIT 39.9 % (36.0-47.0); HEMOGLOBIN 13.2 g/dl (12.0-15.5); LYMPH # 2.8 10^3/uL (1.5-5.0); LYMPH % 29.9 % (24.0-44.0); MEAN CORPUSCULAR HGB CONC 33.1 g/dl (32.0-36.5); MEAN CORPUSCULAR VOLUME 87.7 fl (80.0-96.0); MONO # 0.6 10^3/uL (0.0-0.8); MONO % 6.6 % (0.0-5.0); NEUTROPHILS # 5.4 10^3/uL (1.5-8.5); NEUTROPHILS % 58.1 % (36.0-66.0); PLATELET COUNT, AUTOMATED 290 10^3/uL (150-450); RED BLOOD COUNT 4.55 10^6/uL (4.00-5.40); WHITE BLOOD COUNT 9.2 10^3/uL (4.0-10.0)
--- OUTSIDE RECORDS SUMMARY | 2020-03-19 18:44 | CCD ---
Author Author [facility] Organization [facility] Address Unknown Phone Unavailable Care Team Providers Care Type Mapper Name Role Phone Kathy Bowers Unavailable Unavailable [...] ZAYAS Unavailable Unavailable Kathy WIN Unavailable Unavailable TAHIRA Robertson Unavailable Unavailable Theron DOBSON Unavailable Unavailable Tere Mckenna MD Unavailable Unavailable Tere Mckenna MD Unavailable Unavailable Tere Mckenna MD Unavailable Unavailable CROWDER, ANANYA DO Unavailable Unavailable CROWDER, ANANYA DO Unavailable Unavailable CROWDER, ANANYA DO Unavailable Unavailable CROWDER, ANANYA DO Unavailable Unavailable CROWDER, ANANYA DO Unavailable Unavailable Provider Pending, [facility] Shamar Combs MD Unavailable Un available Toñito Avina MD Unavailable Unavailable Toñito Avina MD Unavailable Unavailable DESEAN LINARES, Physician Maryann ORTIZ Unavailable Unavailable JIGNESH ELLIS MD Unavailable Unavailable JIGNESH ELLIS MD Unavailable Unavailable [place], Desiree CUSTOMER PRICING MANAGER Unavailable Unavailable [place], Desiree CUSTOMER PRICING MANAGER Unavailable Unavailable [place], Desiree CUSTOMER PRICING MANAGER Unavailable Unavailable [place], Desiree CUSTOMER PRICING MANAGER Unavailable Unavailable [place], Desiree CUSTOMER PRICING MANAGER Unavailable Unavailable NON, PHYSICIAN STAFF Unavailable Unavailable [...] Unavailable Juarez, W Best Unavailable Unavailable [id number], [id number] Unavailable MEDENT_8436, [id number] Unavailable MEDENT_8436, [id number] Unavailable MEDENT_8436, [id number] Unavailable MEDENT_8436, [id number] Unavailable MEDENT_8436, [id number] Unavailable MEDENT_8436, [id number] Unavailable MEDENT_8436, [id number] Unavailable MEDENT_8436, [id number] Unavailable Theron Fuller MD Unavailable Unavailable Theron [...] is protected by Article 27-F of the [facility] Public Health law. If you continue you may have access to information: Regarding HIV / AIDS; Provided by facilities licensed or operated by the [facility] Office of Mental Health; or Provided by the [facility] Office for People With Developmental Disabilities. If such information is present, then the following [facility] mandated warning applies: This information has [...] law may result in a fine or fdc sentence or both. A general authorization for the release of medical or other information is NOT sufficient authorization for further disc losure. Family History Family Member Name Family Member Gender Family Member Status Date o f Status Description Data Source(s) Unknown Male Diagnosis 11/07/2014 12:00:00 AM EDT [facility] Encounters Encounter Providers Location Date Indications Data Source(s ) Unknown [id number] [facility] [address] 03/14/2020 12:00:00 AM [place] [address] ([facility]) Outpatient Attender: CAM PRINCE MD 02/21/2020 12:00: 00 AM [facility] Outpatient Attender: ACM PRINCE MD [id number] 12:00:00 AM EDT - 12/20/2019 03:38:04 PM EDT [facility] Emergency Attender: RONDA GARCIAConsultant: STAFF NON 11/07/2019 11:33:00 PM EDT - 11/08/2019 01:19:00 AM EDT [facility] Patient discharged. Outpatient 07/20/2019 06:39:00 PM EDT [facility] Outpatient Attender: REBEKAH CHAUHAN MD MDAdmitt er: ERBEKAH CHAUHAN MD, MD [facility] 07/18/2019 10:30:00 AM EDT TELEPHONE discuss surgery [facility] TELEPHONE discuss surgery [facility] ENT/Facial Plastic Surgery 0 07/18/2019 10:30:00 AM EDT - 07/18/2019 10:30:00 AM EDT Proc/trtmt not carried out because of contraindication [facility] Proc/trtmt not carried out because of co ntraindication P Attender: SALMA CARRASCOdmitter: SALMA AGUILAR-MATTHIAS 07/11/2019 10:42:00 AM EDT [facility] - [facility] P Attender: LISA DOBSONAdmitter: LISA RIZZO-MATTHIAS 2019 03:14:00 PM EDT [facility] - [facility] Outpatient Attender: LISA DOBSONAdmitter: LISA DOBSON MATTHIAS-AMTTHIAS 06/29/2019 01:18:00 PM EDT - 06/29/2019 01:18:00 PM EDT [facility] - [place] [facility] Patient discharged. Outpatient Attender: Wali Temple MDAdmitter: Wali casanova MD [facility] 06/18/2019 06:16:00 PM EDT - 06/18/2019 08:15:00 PM EDT [facility] Patient discharged. Outpatient Attender: SALMA CARRASCOdmitter: SALMA ALVARADO OUT-OUT 05/31/2019 12:01:00 AM EDT - 06/29/2019 11:59:00 PM EDT [facility] - [place] [facility] Patient discharged. P Attender: SALMA CARRASCOdmitter: SALMA ALVARADO MATTHIAS-MATTHIAS 05/30/2019 08:44:00 AM EDT [facility] - [place] [facility] Outpatient Attender: SALMA CARRASCOdmitter: SALMA ALVARADO MATTHIAS-MATTHIAS 05/30/2019 08:29:00 AM EDT - 05/30/2019 08:29:00 AM EDT [facility] Patient [facility]. P Attender: Desiree CHERRY PAttender: PROVIDER TESTAdmitter: Desiree HERNANDEZ LCB-LCB 05/26/2019 01:33:00 PM EDT [facility] - [place] [facility] Outpatient Attender: HALEY ZAYASAdmitter: HALEY SERRANO LCB-LCB 05/16/2019 05:58:00 PM EDT - 05/16/2019 05:58:00 PM EDT Webb [facility] - [place] [facility] Patient discharged. Outpatient Attender: HALEY FRIEDMAN ttender: PROVIDER TESTAdmitter: HALEY ZAYAS LCB-LCB 05/16/2019 05:23:00 PM EDT - 05/16/2019 05:58:00 PM EDT Webb [facility] - [facility] Emergency Attender: Nilton moura DOAdmitter: Nilton Corbinerrer: Dinorah Dooley MD M/S-M/S 05/12/2019 02:05:00 PM EDT - 05/12/2019 03:05:00 PM EDT [facility] - [facility] Patient discharged. Emergency Attender: Nilton moura DOAdmitter: Nilton Corbinerrer: Dinorah Dooley MD ANC-ER 05/12/2019 02:05:00 PM EDT [facility] - [facility] Outpatient Attender: TAHIRA Bella PAAdmitter: TAHIRA Bella PA MATTHIAS-MATTHIAS 05/12/2019 12:53:00 PM EDT - 05/12/2019 12:53:00 PM EDT [facility] - [place] Patient discharged. Outpatient Attender: Best Verma r: [facility] Shamar Br Provider Pending MDAdmitter: Best CASTRO 05/08/2019 11:02:00 AM EDT [facility] OutpatientOffice/outpatient visit,est, mod [facility] 05/08/2019 11:02:00 AM EDT - 05/08/2019 11:02:00 AM EDT Intractable migraine without status migrainosus, unspecified migraine type [facility] Intractable migraine without status migr ainosus, unspecified migraine type Outpatient Attender: MADHAVI GUAJARDOdmitter: MADHAVI WIN ANC -BCC 05/01/2019 08:27:00 AM EST - 05/01/2019 08:27:00 AM EST [facility] - [facility] Patient discharged. Outpatient Attender: SALMA CARRASCOdmitter: SALMA ALVARADO OUT-OUT 2019 12:01:00 AM EST - 05/30/2019 11:59:00 PM EDT [facility] - [facility] Patient discharged. Emergency Attender: Teddy Kurtz nder: Nilton Willson DOAdmitter: Teddy Mckenna MDReferrer: Dinorah Dooley MD M/S-M/S 04/27/2019 01:15:00 PM EST - 04/27/2019 05:18:00 PM EST [facility] Patient discharged. Emergency Attender: Nilton Willson DOAdmitter : Nilton Willson DO ANC-ER 04/27/2019 01:15:00 PM EST Webb Tonja rdes - [facility] Outpatient Attender: SALMA Thomas: SALMA ALVARADO OUT-OUT 04/26/2019 02:59:00 PM EST - 04/27/2019 09:13:00 AM EST Webb [facility] - [facility] Patient discharged. Outpatient Attender: SALMA Bethitter: SALMA ALVARADO OUT-OUT 04/25/2019 09:15:00 AM EST - 04/29/2019 11:59:00 PM EST Webb [facility] - [facility] Patient discharged. Outpatient Attender: TAHIRA Buenoitter: TAHIRA HOFFMANN MATTHIAS-MATTHIAS 04/24/2019 10:16:00 AM EST - 04/24/2019 10:16:00 AM EST Webb [facility] - [facility] Patient discharged. P Attender: TAHIRA Bella PAAvivianitter: TAHIRA HOFFMANN MATTHIAS-MATTHIAS 04/24/2019 09:00:00 AM EST [facility] P Attender: SALMA Thomas: SALMA AGUILAR-MATTHIAS 04/19/2019 09:00:00 AM EST Webb [facility] - [facility] Outpatient Attender: SALMA Thomas: SALMA AGUILAR-MATTHIAS 04/10/2019 07:46:00 AM EST - 04/10/2019 09:28:00 AM EST Webb [facility] - [facility] Patient discharged. Outpatient Attender: SALMA Bethitter: SALMA ALVARADO ANC-NICKOLAS 04/10/2019 05:00:00 AM EST - 04/10/2019 07:00:00 PM EST Webb [facility] - [facility] Patient discharged. Outpatient Attender: SALMA CARRASCO dmitter: SALMA Alemanultant: Physician DIANA ANTON MD ANC-NICKOLAS 04/10/2019 05:00:00 AM EST - 04/10/2019 07:00:00 PM EST Webb [facility] - [facility] P Attender: SALMA Bethitter: SALMA ALVARADO ANC-NICKOLAS 04/10/2019 04:00:00 AM EST Webb [facility] - [facility] P Attender: SALMA Bethitter: SALMA ALVARADO PAT-PAT 04/05/2019 04:00:00 AM EST Webb [facility] - [facility] P Attender: SALMA Bethitter: SALMA ALVARADO MATTHIAS-MATTHIAS 04/04/2019 01:50:00 PM EST Webb [facility] - [facility] Outpatient Attender: [id number] [facility] Main Office 04/04/2019 11:45:00 AM EST [facility] ([facility] ) Outpatient Attender: SALMA Bethitter: SALMA ALVARADO MATTHIAS-MATTHIAS 04/04/2019 09:52:00 AM EST - 04/04/2019 09:52:00 AM EST Webb [facility] - [facility] Patient discharged. Emergency Attender: Toñito Hernandez ter: oTñito Avina MDReferrer: Dinorah Dooley MD M/S-M/S 04/03/2019 12:15:00 PM EST - 04/03/2019 05:20:00 PM EST Webb [facility] - [facility] Patient discharged. Emergency Attender: Toñito Hernandez ter: Toñito Avina MDReferrer: Dinorah Dooley MD ANC-ER 04/03/2019 12:15:00 PM EST - 04/03/2019 05:20:00 PM EST Webb [facility] - [facility] P Attender: MADHAVI GUAJARDOdmitter: MADHAVI WIN ANC -BCC 03/28/2019 04:00:00 AM EST Webb [facility] - [facility] Outpatient Attender: PROVIDER TESTAdmitter: PROVIDER TEST Jessica CB-LCB 03/26/2019 11:11:00 AM EST - 03/26/2019 12:11:00 PM EST Webb [facility] - [facility] Patient discharged. Outpatient Attender: Sandra BowersAttender: PROVIDER TESTAdmitter: Sandra ABDALLA-B 03/26/2019 10:11:00 AM EST - 03/26/2019 12:11:00 PM EST Webb [facility] - [facility] Outpatient Attender: Sandra BowersAttender: PROVIDER TESTAdmitter: Sandra ARELLANOB-LCB 03/26/2019 10:11:00 AM EST - 03/27/2019 11:59:59 PM EST Webb [facility] - [facility] Emergency Attender: Atilio Fuller MDAdmitter: Atilio stahl MD M/S-M/S 02/18/2019 09:11:00 AM EST - 02/18/2019 02:08:00 PM EST Webb [facility] - [facility] Patient discharged. Emergency Attender: Atilio Fuller MDAdmitter: Atilio stahl MD ANC-ER 02/18/2019 09:11:00 AM EST [facility] Outpatient [facility] 01/27/2019 02:52:00 PM EST - 019 12:00:00 AM EDT [facility] Patient discharged. [facility] [employer] [facility] [place] 1 03/29/2018 02:48:00 PM EST - 01/27/2019 02:48:00 PM EST [facility] Emergency Attender: ANANYA OMALLEY ttender: Nilton Willson DOAdmitter: ANANYARoxana CROWDER DOReferrer: Dinorah Dooley MD M/S-M/S 12/03/19 02:43:00 PM EDT - 12/02/2018 07:06:00 PM EDT [facility] Patient discharged. Emergency Attender: JIGNESH ELLIS MDAt tender: Atilio Fuller MDAdmitter: JIGNESH MORTENSENMA MDReferrer: Dinorah Dooley MD M/S-M/S 11/28/2018 01:55 :00 PM EDT - 11/28/2018 06:46:00 PM EDT [facility] [place] [facility] Patient discharged. Medications Medication Brand Name Start Date Product Form Dose Route Admi nistrative Instructions Pharmacy Instructions Status Indications Reaction Description Data Source(s) Diclofenac Sodium 50 MG Delayed Release Oral Tablet Diclofen ac Sodium 06/29/2019 12:00:00 AM EDT ORAL active M [facility] ([facility]) naproxen 500 mg oral tablet 05/26/2019 02:15:00 PM EDT 5 00.0 By Mouth completed 500 mg = 1 tab(s), P O (oral), bid, PRN Pain, # 30 tab(s), Maintenance, Pharmacy: [facility]/pharmacy #[id number], 1 tab(s) PO (oral) bid,PRN:Pain [facility] naproxen 500 mg oral tablet 05/26/2019 02:15:00 PM EDT 5 00.0 By Mouth completed 500 mg = 1 tab(s), P O (oral), bid, PRN Pain, # 30 tab(s), Maintenance, Pharmacy: [id number], 1 tab(s) PO (oral) bid,PRN:Pain Webb Sarah - [facility] naproxen 500 mg oral tablet 05/26/2019 02:15:00 PM EDT 5 00.0 By Mouth completed 500 mg = 1 tab(s), P O (oral), bid, PRN Pain, # 30 tab(s), Maintenance, Pharmacy: [facility]/pharmacy #[id number], 1 tab(s) PO (oral) bid,PRN:Pain [facility] - [place] [facility] naproxen 500 mg oral tablet 05/26/2019 02:15:00 PM EDT 5 00.0 By Mouth completed 500 mg = 1 tab(s), P O (oral), bid, PRN Pain, # 30 tab(s), Maintenance, Pharmacy: [id number], 1 tab(s) PO (oral) bid,PRN:Pain Webb [facility] - [facility] Zofran 4 mg oral tablet 05/12/2019 02:44:00 PM EDT 4.0 Under your Tongue completed 4 mg = 1 tab(s), SubLINGUAL, q6hr, PRN for Nausea or Vomiting, # 9 tab(s), 0 Refill(s), Maintenance, Pharmacy: [id number], 1 tab(s) SubLINGUAL q6hr,x3 day(s),PRN:for Nausea or Vomiting Webb [facility] Zofran 4 mg oral tablet 05/12/2019 02:44:00 PM EDT 4.0 Under your Tongue completed 4 mg = 1 tab(s), SubLINGUAL, q6hr, PRN for Nausea or Vomiting, # 9 tab(s), 0 Refill(s), Maintenance, Pharmacy: [id number], 1 tab(s) SubLINGUAL q6hr,x3 day(s),PRN:for Nausea or Vomiting Webb [facility] - [facility] Zofran 4 mg oral tablet 05/12/2019 02:44:00 PM EDT 4.0 Under your Tongue completed 4 mg = 1 tab(s), SubLINGUAL, q6hr, PRN for Nausea or Vomiting, # 9 tab(s), 0 Refill(s), Maintenance, Pharmacy: [id number], 1 tab(s) SubLINGUAL q6hr,x3 day(s),PRN:for Nausea or Vomiting Webb [facility] - [place] [facility] Zofran 4 mg oral tablet 05/12/2019 02:44:00 PM EDT 4.0 Under your Tongue completed 4 mg = 1 tab(s), SubLINGUAL, q6hr, PRN for Nausea or Vomiting, # 9 tab(s), 0 Refill(s), Maintenance, Pharmacy: [facility]/pharmacy #[id number], 1 tab(s) SubLINGUAL q6hr,x3 day(s),PRN:for Nausea or Vomiting Webb [facility] - [facility] Zofran 4 mg oral tablet 05/12/2019 02:44:00 PM EDT 4.0 Under your Tongue completed 4 mg = 1 tab(s), SubLINGUAL, q6hr, PRN for Nausea or Vomiting, # 9 tab(s), 0 Refill(s), Maintenance, Pharmacy: [facility]/pharmacy #[id number], 1 tab(s) SubLINGUAL q6hr,x3 day(s),PRN:for Nausea or Vomiting Webb [facility] - [facility] Zofran ODT 4 mg oral tablet, disintegrating 04/27/2019 05: 08:00 PM EST 4.0 By Mouth completed 4 mg = 1 tab(s ), PO (oral), tid, PRN Nausea, # 9 tab(s), Maintenance, Pharmacy: [facility]/pharmacy #[id number], 1 tab(s) PO (oral) tid,PRN:Nausea Webb [facility] - [facility] Zofran ODT 4 mg oral tablet, disintegrating 04/27/2019 05: 08:00 PM EST 4.0 By Mouth completed 4 mg = 1 tab(s ), PO (oral), tid, PRN Nausea, # 9 tab(s), Maintenance, Pharmacy: [facility]/pharmacy #[id number], 1 tab(s) PO (oral) tid,PRN:Nausea Webb [facility] - [facility] Zofran ODT 4 mg oral tablet, disintegrating 04/27/2019 05: 08:00 PM EST 4.0 By Mouth completed 4 mg = 1 tab(s ), PO (oral), tid, PRN Nausea, # 9 tab(s), Maintenance, Pharmacy: [facility]/pharmacy #[id number], 1 tab(s) PO (oral) tid,PRN:Nausea Webb [facility] - [place] [facility] Zofran ODT 4 mg oral tablet, disintegrating 04/27/2019 05: 08:00 PM EST 4.0 By Mouth completed 4 mg = 1 tab(s ), PO (oral), tid, PRN Nausea, # 9 tab(s), Maintenance, Pharmacy: [facility]/pharmacy #[id number], 1 tab(s) PO (oral) tid,PRN:Nausea [facility] [place] - [place] [facility] Zofran ODT 4 mg oral tablet, disintegrating 04/27/2019 05: 08:00 PM EST 4.0 By Mouth completed 4 mg = 1 tab(s ), PO (oral), tid, PRN Nausea, # 9 tab(s), Maintenance, Pharmacy: [facility]/pharmacy #[id number], 1 tab(s) PO (oral) tid,PRN:Nausea [facility] [place] - [place] [facility] Zofran ODT 4 mg oral tablet, disintegrating 04/27/2019 05: 08:00 PM EST 4.0 By Mouth completed 4 mg = 1 tab(s ), PO (oral), tid, PRN Nausea, # 9 tab(s), Maintenance, Pharmacy: [facility]/pharmacy #[id number], 1 tab(s) PO (oral) tid,PRN:Nausea Webb [facility] - [place] [facility] Omeprazole omeprazole 40 mg oral delayed release capsu le omeprazole 40 mg oral delayed release capsule 04/27/2019 05:00:00 PM EST 40.0 By Mouth completed 40 mg = 1 cap(s), PO (oral), qDay, # 90 cap(s), Maintenance, Pharmacy: [facility]/pharmacy #[id number], 1 cap(s) PO (oral) qDay Webb [facility] - [place] [facility] Omeprazole omeprazole 40 mg oral delayed release capsu le omeprazole 40 mg oral delayed release capsule 04/27/2019 05:00:00 PM EST 40.0 By Mouth completed 40 mg = 1 cap(s), PO (oral), qDay, # 90 cap(s), Maintenance, Pharmacy: [facility]/pharmacy #[id number], 1 cap(s) PO (oral) qDay Webb [facility], [facility] Omeprazole omeprazole 40 mg oral delayed release capsu le omeprazole 40 mg oral delayed release capsule 04/27/2019 05:00:00 PM EST 40.0 By Mouth completed 40 mg = 1 cap(s), PO (oral), qDay, # 90 cap(s), Maintenance, Pharmacy: [facility]/pharmacy #[id number], 1 cap(s) PO (oral) qDay Webb [facility], [facility] Omeprazole omeprazole 40 mg oral delayed release capsu le omeprazole 40 mg oral delayed release capsule 04/27/2019 05:00:00 PM EST 40.0 By Mouth completed 40 mg = 1 cap(s), PO (oral), qDay, # 90 cap(s), Maintenance, [facility]acy: [id number], 1 cap(s) PO (oral) qDay Webb [facility], [facility] Omeprazole omeprazole 40 mg oral delayed release capsu le omeprazole 40 mg oral delayed release capsule 04/27/2019 05:00:00 PM EST 40.0 By Mouth completed 40 mg = 1 cap(s), PO (oral), qDay, # 90 cap(s), Maintenance, [id number], 1 cap(s) PO (oral) qDay [facility], [facility] Omeprazole omeprazole 40 mg oral delayed release capsu le omeprazole 40 mg oral delayed release capsule 04/27/2019 05:00:00 PM EST 40.0 By Mouth completed 40 mg = 1 cap(s), PO (oral), qDay, # 90 cap(s), Maintenance, Pharmacy: [facility]/pharmacy #[id number], 1 cap(s) PO (oral) qDay [facility], [facility] medroxyPROGESTERone 150 mg/mL intramuscular suspension 04/27/2019 04:13:00 PM EST 150.0 IntraMUSCULAR completed 150 mg =, IM, Maintenance Webb [facility], [facility] Morphine Sulfate 15 MG Oral Tablet Morphine Sulfate 04/11/2019 1 2:00:00 AM EST ORAL completed [facility] ([facility]) acetaminophen-oxyCODONE 325 mg-5 mg oral tablet 2019 12:18:00 PM EST 1.0 By Mouth completed 1 tab(s), PO (oral), q4h, PRN Moderate Pain (4- 6), # 20 tab(s), 0 Refill(s), Maintenance, Pharmacy: [facility]/pharmacy #[id number], 1 tab(s) PO (oral) q4h,PRN:Moderate Pain (4-6) Webb [facility] - [facility], [facility] CeleBREX 100 mg oral capsule 04/10/2019 12:17:00 PM EST 100.0 By Mouth completed 100 mg = 1 cap(s), P O (oral), bid, # 60 cap(s), Maintenance, Pharmacy: [facility]/pharmacy #[id number], 1 cap(s) PO (oral) bid Webb [facility] - [facility], [facility] docusate sodium 100 mg oral tablet 04/10/2019 12:16:00 PM EST 100.0 By Mouth completed 100 mg =, PO ( oral), qDay, # 5 tab(s), Maintenance, Pharmacy: [facility]/pharmacy #[id number], 100 mg PO (oral) qDay Webb [facility] - [facility] cephalexin 500 mg oral capsule 04/10/2019 12:16:00 PM EST 500.0 By Mouth completed 500 mg = 1 cap(s ), PO (oral), q6hr, # 12 cap(s), Maintenance, Pharmacy: [facility]/pharmacy #[id number], 1 cap(s) PO (oral) q6hr Webb [facility] - [facility] Zofran ODT 4 mg oral tablet, disintegrating 04/10/2019 12: 16:00 PM EST Under your Tongue completed 1 to 2 tab(s), SubLINGUAL, q8h, PRN for nausea or vomiting, # 4 tab(s), Maintenance, [facility]acy: [id number], 1 to 2 tab(s) SubLINGUAL q8h,PRN:for nausea or vomiting [facility] aspirin 325 mg oral delayed release tablet 04/10/2019 12:1 6:00 PM EST 325.0 By Mouth completed 325 mg = 1 tab (s), PO (oral), qDay, # 14 tab(s), Maintenance, Pharmacy: [facility]/pharmacy #[id number], 1 tab(s) PO (oral) qDay Webb [facility] - [facility], [facility] Zofran ODT 4 mg oral tablet, disintegrating 04/03/2019 04: 37:30 PM EST Under your Tongue completed 1 to 2 tab(s), SubLINGUAL, q8h, PRN for nausea or vomiting, # 4 tab(s), Maintenance, Pharmacy: [facility]/pharmacy #[id number], 1 to 2 tab(s) SubLINGUAL q8h,PRN:for nausea or vomiting Webb [facility] - [facility], [facility] Macrobid 100 mg oral capsule 03/26/2019 11:05:15 AM EST 100.0 By Mouth completed 100 mg = 1 cap(s), P O (oral), bid, # 10 cap(s), Maintenance, Pharmacy: [facility]/pharmacy #[id number], 1 cap(s) PO (oral) bid,x5 day(s) Webb [facility] - [facility], [facility] Macrobid 100 mg oral capsule 03/26/2019 11:05:15 AM EST 100.0 By Mouth completed 100 mg = 1 cap(s), P O (oral), bid, # 10 cap(s), Maintenance, Pharmacy: [facility]/pharmacy #[id number], 1 cap(s) PO (oral) bid,x5 day(s) Webb [facility] - [facility], [facility] Voltaren 75 mg oral enteric coated tablet 02/18/2019 01:51 :38 PM EST 75.0 By Mouth completed 75 mg = 1 tab( s), PO (oral), bid, # 20 tab(s), Maintenance, Pharmacy: [facility]/pharmacy #[id number], 1 tab(s) PO (oral) bid Webb [facility] - [facility], [facility] Voltaren 75 mg oral enteric coated tablet 02/18/2019 01:51 :38 PM EST 75.0 By Mouth completed 75 mg = 1 tab( s), PO (oral), bid, # 20 tab(s), Maintenance, Pharmacy: [id number], 1 tab(s) PO (oral) bid [facility] - [place] [facility] Flonase Allergy Relief 50 mcg/actuation nasal spray,dickinson spension Fluticasone propionate 0.05 MG/ACTUAT Metered Dose Nasal [place] 06/08/2016 12:00:00 AM EDT NASAL completed Fluticason e propionate 0.05 MG/ACTUAT Metered Dose Nasal [place] [Flonase] [facility] trazodone 50 mg tablet trazodone HCl TABLET 1.00 tablet ORAL completed take 1 tablet by oral route every day at bedtime [facility] Hyoscyamine Sulfate 0.125 MG/ML Oral Nat ution HYOSCYAMINE SULFATE (unknown strength) HYOSCYAMINE SULFATE (unknown strength) ORAL completed take 1 milliliter by oral route every 4 hours as needed [facility] Previfem 0.25 mg-35 mcg tablet {21 (Ethinyl Estradiol 0.035 MG / norgestimate 0.25 MG Oral Tablet) / 7 (Inert Ingredients 1 MG Oral Tablet) } Pack TABLET 1.00 tablet ORAL completed Previfem 28 Day Pa c[facility] Briellyn 0.4 mg-35 mcg tablet {21 (Ethinyl Estradiol 0 .035 MG / Norethindrone 0.4 MG Oral Tablet) / 7 (Inert Ingredients 1 MG Oral Tablet) } Pack TABLET 1.00 tablet ORAL completed Briellyn 28 Day Pa c[facility] Metformin hydrochloride 500 MG Oral Tablet metformin 5 00 mg tablet metformin 500 mg tablet TABLET 1.00 tablet ORAL completed take 1 tablet by oral route 2 times every day with morning and evening meals [facility] Lactobacillus rhamnosus GG [id number] U NT Oral Capsule Culturelle 10 billion cell capsule Culturelle 10 billion cell capsule CAPSULE ORAL completed [facility] Clonazepam 1 MG Oral Tablet clonazepam 1 mg tablet clonazepam 1 mg tablet TABLET 1 tablet ORAL completed take 1 tablet by oral route 2 times every day [facility] methylphenidate ER 50 mg multiphase capsule 30-70,exte nded release methylphenidate HCl CAPSULE ORAL completed take 1 capsule by oral route every day before breakfast [facility] Insurance Providers Payer name Policy type / Coverage type Policy ID Covered constitution party ID Covered constitution party's relationship to soto Policy [place] Plan Information [employer] [id number] SP [id number] CDPHP COMMERCIAL U [id number] Self 3 [id number] [employer] [id number] CDPHP [id number] self [id number] Medicaid [id number] Self [id number] CDPHP [id number] Self [id number] MEDICAID NYS COMPUTER S JA [id number] CDPHP COM [id number] F [id number] [facility] Organizational Contracts [id number] Self [id number] CDPHP [id number] self [id number] CDPHP COM [id number] F [id number] CDPHP COM [id number] F [id number] CDPHP Health Maintenance Organization (HMO) [id number] Family Dependent [id number] Medicaid [id number] Self [id number] CDPHP O 14 [id number] DE [id number] CDPHP COMMERCIAL U [id number] Self [id number] GOVERNMENTAL GENERIC B [id number] ORel [id number] MEDICAID M [id number] Self [id number] MEDICAID M [id number] Self [id number] Problems, Conditions, and Diagnoses Code Display Name Description Problem Type Effective Dates Data Source(s) 64723516 Knee pain Knee pain Problem 06/29/2019 12:00:00 AM ED T BETSY ([facility]) [id number] Nicotine dependence, cigarettes, uncompl icated Nicotine dependence, cigarettes, uncomplicated Diagnosis 11/07/2019 11:33:00 PM EDT [facility] N949 Unspecified condition associ ated with female genital organs and menstrual cycle Unspecified condition associated with fe male genital organs and menstrual cycle Diagnosis 11/07/2019 11:33:00 PM EDT [facility] N939 Abnormal uterine and vaginal bleeding, u nspecified Abnormal uterine and vaginal bleeding, unspecified Diagnosis 11/07/2019 11:33:00 PM EDT [facility] [id number] Pain in left knee Pain in left knee Diagnosis 06/29/2019 01:18:00 PM EDT Lexi Smith - [facility] Isaiah9.00 Constipation, unspecified Constipation, unspecified Di agnosis 06/22/2019 12:00:00 AM EDT [facility] Z4889 Encounter for other specified surgical a ftercare Encounter for other specified surgical aftercare Diagnosis 05/30/2019 08:29:00 AM EDT Asce darrell Smith - [facility] fever x 2 days fever x 2 days Diagnosis 05/26/2019 01:33: 00 PM EDT Webb Sarah - [facility] left knee injury left knee injury Diagnosis 05/16/2019 05 :23:00 PM EDT Webb Sarah - [facility] R509 Fever, unspecified Fever, unspecified Diagnosis 0 02:05:00 PM EDT Webb Sarah - [facility] FEVER CONGESTION N/V FEVER CONGESTION N/V Diagnosis 05/12/2019 02:05:00 PM EDT Webb Sarah - [facility] J029 Acute pharyngitis, unspecified Acute pharyngitis, unsp ecified Diagnosis 05/12/2019 02:05:00 PM EDT Webb Sarah - [facility] VAS RC VAS RC Diagnosis 05/12/2019 12:53:00 PM ED T Webb Sarah - [facility] M7989 Other specified soft tissue disorders Ot her specified soft tissue disorders Diagnosis 05/12/2019 12:53:00 PM EDT Webb Tonja rdes - [facility] N6452 Nipple discharge Nipple discharge Diagnosis 05/01/2019 08 :27:00 AM EST Webb Sarah - [facility] N644 Mastodynia Mastodynia Diagnosis 05/01/2019 08:27:00 AM ES T Webb Sarah - [facility] [id number] Other assisted (current) drug therapy O ther assisted (current) drug therapy Diagnosis 04/27/2019 01:15:00 PM EST Webb Tonja rdes - [facility] Z803 Family history of malignant neoplasm of breast Family history of malignant neoplasm of breast Diagnosis 04/27/2019 01:15:00 PM EST Webb Tonja rdes - [facility] Z3202 Encounter for test, result neg ative Encounter for test, result negative Diagnosis 04/27/2019 01:15:00 PM EST Webb L ourdes - [facility] [id number] Personal history of nicotine dependence Personal history of nicotine dependence Diagnosis 04/27/2019 01:15:00 PM EST Webb Tonja rdes - [facility] [id number] Other specified postprocedural states Ot her specified postprocedural states Diagnosis 04/27/2019 01:15:00 PM EST Webb Tonja rdes - [facility] R110 Nausea Nausea Diagnosis 04/27/2019 01:15:00 PM ES T Webb Sarah - [facility] F329 Major depressive disorder, single episod e, unspecified Major depressive disorder, single episode, unspecified Diagnosis 04/27/2019 01:15:00 PM EST Webb Sarah - [facility] F419 Anxiety disorder, unspecified Anxiety disorder, unspec ified Diagnosis 04/27/2019 01:15:00 PM EST Webb Sarah - [facility] K2970 Gastritis, unspecified, without bleeding Gastritis, unspecified, without bleeding Diagnosis 04/27/2019 01:15:00 PM EST Webb Tonja rdes - [facility] K219 Gastro-esophageal reflux disease without esophagitis Gastro-esophageal reflux disease without esophagitis Diagnosis 04/27/2019 01:15:00 PM ES T Webb Sarah - [facility] CHILLS/VOMITING/CHEST CONGESTION/PAIN CHILLS/VOM ITING/CHEST CONGESTION/PAIN Diagnosis 04/27/2019 01:15:00 PM EST Webb Sarah - [facility] R079 Chest pain, unspecified Chest pain, unspecified Diagno sis 04/27/2019 01:15:00 PM EST Webb Sarah - [facility] [id number] Other instability, left knee Other instability, left k nee Diagnosis 04/24/2019 10:16:00 AM EST Webb Sarah - [facility] 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, 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, left knee Diagnosis 04/10/2019 07:46:00 AM EST Webb Tonja rdes - [facility] F410 Panic disorder episodic paroxysmal an xiety Panic disorder episodic paroxysmal anxiety Diagnosis 04/10/2019 05:00:00 AM EST Webb Sarah - [facility] E282 Polycystic ovarian syndrome Polycystic ovarian syndrom e Diagnosis 04/10/2019 05:00:00 AM EST Webb Sarah - [facility] F909 Attention-deficit hyperactivity disorder , unspecified type Attention- deficit hyperactivity disorder, unspecified type Diagnosis 04/10 05:00:00 AM EST Webb Sarah - [facility] Z8041 Family history of malignant neoplasm of ovary Family history of malignant neoplasm of ovary Diagnosis 04/10/2019 05:00:00 AM EST Webb Tonja rdes - [facility] Z880 Allergy status to penicillin Allergy status to penicil livier Diagnosis 04/10/2019 05:00:00 AM EST Webb Sarah - [facility] 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, 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, left knee Diagnosis 04/10/2019 05:00:00 AM EST Webb Tonja rdes - [facility] MP MP Diagnosis 04/10/2019 05:00:00 AM ES T Webb Sarah - [facility] NICKOLAS NICKOLAS Diagnosis 04/10/2019 05:00:00 AM ES T Webb Sarah - [facility] M2352 Chronic instability of knee, left knee C hronic instability of knee, left knee Diagnosis 04/10/2019 05:00:00 AM EST Webb Tonja rdes - [facility] PAT PHONE PAT PHONE Diagnosis 04/05/2019 04:00:00 AM ES T Webb Sarah - [facility] [id number] Sprain of medial collateral ligament of left knee, init Sprain of medial collateral ligament of left knee, init Diagnosis 04/04/2019 09:52:00 AM EST Webb Sarah - [facility] K589 Irritable bowel syndrome without diarrhe a Irritable bowel syndrome without diarrhea Diagnosis 04/03/2019 12:15:00 PM EST Webb Tonja rdes - [facility] F418 Other specified anxiety disorders Other specifie d anxiety disorders Diagnosis 04/03/2019 12:15:00 PM EST Webb Sarah - [facility] K2900 Acute gastritis without bleeding Acute gastritis without bleeding Diagnosis 04/03/2019 12:15:00 PM EST Webb Sarah - [facility] VOMITING/ABD PAIN/UNABLE TO URINATE VOMITING/ABD PAIN/UNABLE TO URINATE Diagnosis 04/03/2019 12:15:00 PM EST Webb Sarah - [facility] R1032 Left lower quadrant pain Left lower quadrant pain Diag nosis 04/03/2019 12:15:00 PM EST Webb Sarah - [facility] BCC PRESLEY BCC PRESLEY Diagnosis 03/28/2019 04:00:00 AM ES T Webb Sarah - [facility] vomitting for a week vomitting for a week Diagnosis 03/26/2019 10:11:00 AM EST Webb Sarah - [facility] N390 Urinary tract infection, site not specif ied Urinary tract infection, site not specified Diagnosis 03/26/2019 10:11:00 AM EST Webb Tonja rdes - [facility] N946 Dysmenorrhea, unspecified Dysmenorrhea, unspecified Di agnosis 02/18/2019 09:11:00 AM EST Webb Sarah - [facility] VOMITTING/RECTAL BLEEDING VOMITTING/RECTAL BLEEDING Di agnosis 02/18/2019 09:11:00 AM EST Webb Sarah - [facility] R1030 Lower abdominal pain, unspecified Lower abdomina l pain, unspecified Diagnosis 02/18/2019 09:11:00 AM EST Webb Sarah - [facility] Surgeries/Procedures Procedure Description Date Indications Data Source(s) POSTOP FOLLOW-UP VISIT POSTOP FOLLOW-UP VISIT 06/29/2019 12:00:00 A M EDT Webb Sarah - [facility] X-RAY EXAM OF KNEE 3 X-RAY EXAM OF KNEE 3 06/29/2019 12:00:00 AM ED T Webb Sarah - [facility] X-RAY EXAM OF KNEE 3 X-RAY EXAM OF KNEE 3 06/29/2019 12:00:00 AM ED T Webb Sarah - [facility] POSTOP FOLLOW-UP VISIT POSTOP FOLLOW-UP VISIT 06/29/2019 12:00:00 A M EDT Webb Sarah - [facility] X-Ray Knee Ap & Lateral W/Obliques Three Views 020 12:00:00 AM EDT [facility] ([facility]) OFFICE/OUTPATIENT VISIT EST OFFICE/OUTPATIENT VISIT EST 04/30 12:00:00 AM EDT Webb Sarah - [facility] OFFICE/OUTPATIENT VISIT EST OFFICE/OUTPATIENT VISIT EST 04/30 12:00:00 AM EDT Webb Sarah - [facility] X-RAY EXAM OF KNEE 3 X-RAY EXAM OF KNEE 3 05/16/2019 12:00:00 AM ED T Webb Sarah - [facility] OFFICE/OUTPATIENT VISIT EST OFFICE/OUTPATIENT VISIT EST 04/29 12:00:00 AM EDT Webb Sarah - [facility] X-RAY EXAM OF KNEE 3 X-RAY EXAM OF KNEE 3 05/16/2019 12:00:00 AM ED T Webb Sarah - [facility] OFFICE/OUTPATIENT VISIT EST OFFICE/OUTPATIENT VISIT EST 04/29 12:00:00 AM EDT Webb Sarah - [facility] X-RAY EXAM OF KNEE 3 X-RAY EXAM OF KNEE 3 05/16/2019 12:00:00 AM ED T Webb Sarah - [facility] X-RAY EXAM OF KNEE 3 X-RAY EXAM OF KNEE 3 05/16/2019 12:00:00 AM ED T Webb Sarah - [facility] X-RAY EXAM OF KNEE 3 X-RAY EXAM OF KNEE 3 05/16/2019 12:00:00 AM ED T Webb Sarah - [facility] RSV DNA/RNA AMP PROBE RSV DNA/RNA AMP PROBE 05/12/2019 12:00:00 AM EDT Webb Sarah - [facility] STREP A AG IA STREP A AG IA 05/12/2019 12:00:00 AM EDT Webb Sarah - [facility] EXTREMITY STUDY EXTREMITY STUDY 05/12/2019 12:00:00 AM EDT Webb Sarah - [facility] EMERGENCY DEPT VISIT EMERGENCY DEPT VISIT 05/12/2019 12:00:00 AM ED T Webb Sarah - [facility] INFLUENZA DNA AMP PROBE INFLUENZA DNA AMP PROBE 05/12/2019 12:00:00 AM EDT Webb Sarah - [facility] EMERGENCY DEPT VISIT EMERGENCY DEPT VISIT 05/12/2019 12:00:00 AM ED T Webb Sarah - [facility] RSV DNA/RNA AMP PROBE RSV DNA/RNA AMP PROBE 05/12/2019 12:00:00 AM EDT Webb Sarah - [facility] STREP A AG IA STREP A AG IA 05/12/2019 12:00:00 AM EDT Webb Sarah - [facility] INFLUENZA DNA AMP PROBE INFLUENZA DNA AMP PROBE 05/12/2019 12:00:00 AM EDT Webb Sarah - [facility] EXTREMITY STUDY EXTREMITY STUDY 05/12/2019 12:00:00 AM EDT Webb Sarah - [facility] STREP A AG IA STREP A AG IA 05/12/2019 12:00:00 AM EDT Webb Sarah - [facility] INFLUENZA DNA AMP PROBE INFLUENZA DNA AMP PROBE 05/12/2019 12:00:00 AM EDT Webb Sarah - [facility] EMERGENCY DEPT VISIT EMERGENCY DEPT VISIT 05/12/2019 12:00:00 AM ED T Webb Sarah - [facility] RSV DNA/RNA AMP PROBE RSV DNA/RNA AMP PROBE 05/12/2019 12:00:00 AM EDT Webb Sarah - [facility] EXTREMITY STUDY EXTREMITY STUDY 05/12/2019 12:00:00 AM EDT Webb Sarah - [facility] INFLUENZA DNA AMP PROBE INFLUENZA DNA AMP PROBE 05/12/2019 12:00:00 AM EDT Webb Sarah - [facility] EMERGENCY DEPT VISIT EMERGENCY DEPT VISIT 05/12/2019 12:00:00 AM ED T Webb Sarah - [facility] RSV DNA/RNA AMP PROBE RSV DNA/RNA AMP PROBE 05/12/2019 12:00:00 AM EDT Webb Sarah - [facility] STREP A AG IA STREP A AG IA 05/12/2019 12:00:00 AM EDT Webb Sarah - [facility] INFLUENZA DNA AMP PROBE INFLUENZA DNA AMP PROBE 05/12/2019 12:00:00 AM EDT Webb Sarah - [facility] EMERGENCY DEPT VISIT EMERGENCY DEPT VISIT 05/12/2019 12:00:00 AM ED T Webb Sarah - [facility] RSV DNA/RNA AMP PROBE RSV DNA/RNA AMP PROBE 05/12/2019 12:00:00 AM EDT Webb Sarah - [facility] STREP A AG IA STREP A AG IA 05/12/2019 12:00:00 AM EDT Webb Sarah - [facility] THERAPEUTIC EXERCISES THERAPEUTIC EXERCISES 05/09/2019 12:00:00 AM EDT Webb Sarah - [facility] THERAPEUTIC EXERCISES THERAPEUTIC EXERCISES 05/09/2019 12:00:00 AM EDT Webb Sarah - [facility] THERAPEUTIC EXERCISES THERAPEUTIC EXERCISES 05/09/2019 12:00:00 AM EDT [facility] Therapeutic, prophylactic, or diagnostic injection; Sub Cut/ IM 05/08/2019 12:00:00 AM EDT - 05/08/2019 12:00:00 AM EDT [facility] Toradol Inj Per 15 mg 05/08/2019 12:00:00 AM EDT - 05/08/2019 12:00:00 AM EDT [facility] Office/outpatient visit,est, mod 020 12:00:00 AM EDT - 05/08/2019 12:00:00 AM EDT [facility] THERAPEUTIC EXERCISES THERAPEUTIC EXERCISES 05/03/2019 12:00:00 AM EST Webb Sarah - [facility] THERAPEUTIC EXERCISES THERAPEUTIC EXERCISES 05/03/2019 12:00:00 AM EST Webb Sarah - [facility] THERAPEUTIC EXERCISES THERAPEUTIC EXERCISES 05/03/2019 12:00:00 AM EST Webb Sarah - [facility] OFFICE/OUTPATIENT VISIT EST OFFICE/OUTPATIENT VISIT EST 04/2019 12:00:00 AM EST Webb Sarah - [facility] OFFICE/OUTPATIENT VISIT EST OFFICE/OUTPATIENT VISIT EST 04/2019 12:00:00 AM EST Webb Sarah - [facility] ASSAY OF TROPONIN QUANT ASSAY OF TROPONIN QUANT 04/27/2019 12:00:00 AM EST Webb Sarah - [facility] CHORIONIC GONADOTROPIN ASSAY CHORIONIC GONADOTROPIN ASSAY 12:00:00 AM EST Webb Sarah - [facility] FIBRIN DEGRADATION QUANT FIBRIN DEGRADATION QUANT 04/27/2019 12:00: 00 AM EST Webb Sarah - [facility] COMPREHEN METABOLIC PANEL COMPREHEN METABOLIC PANEL 04/27/2019 1 2:00:00 AM EST Webb Sarah - [facility] EMERGENCY DEPT VISIT EMERGENCY DEPT VISIT 04/27/2019 12:00:00 AM ES T Webb Sarah - [facility] BLOOD COUNT COMPLETE AUTO&AUTO DIFRNTL WBC COUNT COMPLETE CB C W/AUTO DIFF WBC 04/27/2019 12:00:00 AM EST Webb Sarah - [facility] ELECTROCARDIOGRAM TRACING ELECTROCARDIOGRAM TRACING 04/27/2019 1 2:00:00 AM EST Webb Sarah - [facility] X-RAY EXAM CHEST 2 VIEWS X-RAY EXAM CHEST 2 VIEWS 04/27/2019 12:00: 00 AM EST Webb Sarah - [facility] ROUTINE VENIPUNCTURE ROUTINE VENIPUNCTURE 04/27/2019 12:00:00 AM ES T Webb Sarah - [facility] COMPREHEN METABOLIC PANEL COMPREHEN METABOLIC PANEL 04/27/2019 1 2:00:00 AM EST Webb Sarah - [facility] X-RAY EXAM CHEST 2 VIEWS X-RAY EXAM CHEST 2 VIEWS 04/27/2019 12:00: 00 AM EST Webb Sarah - [facility] FIBRIN DEGRADATION QUANT FIBRIN DEGRADATION QUANT 04/27/2019 12:00: 00 AM EST Webb Sarah - [facility] BLOOD COUNT COMPLETE AUTO&AUTO DIFRNTL WBC COUNT COMPLETE CB C W/AUTO DIFF WBC 04/27/2019 12:00:00 AM EST Webb Sarah - [facility] CHORIONIC GONADOTROPIN ASSAY CHORIONIC GONADOTROPIN ASSAY 12:00:00 AM EST Webb Sarah - [facility] EMERGENCY DEPT VISIT EMERGENCY DEPT VISIT 04/27/2019 12:00:00 AM ES T Webb Sarah - [facility] ROUTINE VENIPUNCTURE ROUTINE VENIPUNCTURE 04/27/2019 12:00:00 AM ES T Webb Sarah - [facility] ELECTROCARDIOGRAM TRACING ELECTROCARDIOGRAM TRACING 04/27/2019 1 2:00:00 AM EST Webb Sarah - [facility] ASSAY OF TROPONIN QUANT ASSAY OF TROPONIN QUANT 04/27/2019 12:00:00 AM EST Webb Sarah - [facility] ELECTROCARDIOGRAM TRACING ELECTROCARDIOGRAM TRACING 04/27/2019 1 2:00:00 AM EST Webb Sarah - [facility] BLOOD COUNT COMPLETE AUTO&AUTO DIFRNTL WBC COUNT COMPLETE CB C W/AUTO DIFF WBC 04/27/2019 12:00:00 AM EST Webb Sarah - [facility] EMERGENCY DEPT VISIT EMERGENCY DEPT VISIT 04/27/2019 12:00:00 AM ES T Webb Sarah - [facility] COMPREHEN METABOLIC PANEL COMPREHEN METABOLIC PANEL 04/27/2019 1 2:00:00 AM EST Webb Sarah - [facility] ROUTINE VENIPUNCTURE ROUTINE VENIPUNCTURE 04/27/2019 12:00:00 AM ES T Webb Sarah - [facility] CHORIONIC GONADOTROPIN ASSAY CHORIONIC GONADOTROPIN ASSAY 12:00:00 AM EST Webb Sarah - [facility] FIBRIN DEGRADATION QUANT FIBRIN DEGRADATION QUANT 04/27/2019 12:00: 00 AM EST Webb Sarah - [facility] X-RAY EXAM CHEST 2 VIEWS X-RAY EXAM CHEST 2 VIEWS 04/27/2019 12:00: 00 AM EST Webb Sarah - [facility] ASSAY OF TROPONIN QUANT ASSAY OF TROPONIN QUANT 04/27/2019 12:00:00 AM EST Webb Sarah - [facility] CHORIONIC GONADOTROPIN ASSAY CHORIONIC GONADOTROPIN ASSAY 12:00:00 AM EST Webb Sarah - [facility] COMPREHEN METABOLIC PANEL COMPREHEN METABOLIC PANEL 04/27/2019 1 2:00:00 AM EST Webb Sarah - [facility] BLOOD COUNT COMPLETE AUTO&AUTO DIFRNTL WBC COUNT COMPLETE CB C W/AUTO DIFF WBC 04/27/2019 12:00:00 AM EST Webb Sarah - [facility] FIBRIN DEGRADATION QUANT FIBRIN DEGRADATION QUANT 04/27/2019 12:00: 00 AM EST Webb Sarah - [facility] ASSAY OF TROPONIN QUANT ASSAY OF TROPONIN QUANT 04/27/2019 12:00:00 AM EST Webb Sarah - [facility] X-RAY EXAM CHEST 2 VIEWS X-RAY EXAM CHEST 2 VIEWS 04/27/2019 12:00: 00 AM EST Webb Sarah - [facility] ROUTINE VENIPUNCTURE ROUTINE VENIPUNCTURE 04/27/2019 12:00:00 AM ES T Webb Sarah - [facility] ELECTROCARDIOGRAM TRACING ELECTROCARDIOGRAM TRACING 04/27/2019 1 2:00:00 AM EST Webb Sarah - [facility] EMERGENCY DEPT VISIT EMERGENCY DEPT VISIT 04/27/2019 12:00:00 AM ES T [facility] Sarah - [facility] COMPREHEN METABOLIC PANEL COMPREHEN METABOLIC PANEL 04/27/2019 1 2:00:00 AM EST Webb Sarah - [facility] ROUTINE VENIPUNCTURE ROUTINE VENIPUNCTURE 04/27/2019 12:00:00 AM ES T Webb Sarah - [facility] CHORIONIC GONADOTROPIN ASSAY CHORIONIC GONADOTROPIN ASSAY 12:00:00 AM EST Webb Sarah - [facility] X-RAY EXAM CHEST 2 VIEWS X-RAY EXAM CHEST 2 VIEWS 04/27/2019 12:00: 00 AM EST Webb Sarah - [facility] FIBRIN DEGRADATION QUANT FIBRIN DEGRADATION QUANT 04/27/2019 12:00: 00 AM EST Webb Sarah - [facility] ELECTROCARDIOGRAM TRACING ELECTROCARDIOGRAM TRACING 04/27/2019 1 2:00:00 AM EST Webb Sarah - [facility] ASSAY OF TROPONIN QUANT ASSAY OF TROPONIN QUANT 04/27/2019 12:00:00 AM EST Webb Sarah - [facility] EMERGENCY DEPT VISIT EMERGENCY DEPT VISIT 04/27/2019 12:00:00 AM ES T Webb Sarah - [facility] BLOOD COUNT COMPLETE AUTO&AUTO DIFRNTL WBC COUNT COMPLETE CB C W/AUTO DIFF WBC 04/27/2019 12:00:00 AM EST Webb Sarah - [facility] X-RAY EXAM OF KNEE 1 OR 2 X-RAY EXAM OF KNEE 1 OR 2 04/24/2019 1 2:00:00 AM EST Webb Sarah - [facility] POSTOP FOLLOW-UP VISIT POSTOP FOLLOW-UP VISIT 04/24/2019 12:00:00 A M EST Webb Sarah - [facility] X-RAY EXAM OF KNEE 1 OR 2 X-RAY EXAM OF KNEE 1 OR 2 04/24/2019 1 2:00:00 AM EST Webb Sarah - [facility] POSTOP FOLLOW-UP VISIT POSTOP FOLLOW-UP VISIT 04/24/2019 12:00:00 A M EST Webb Sarah - [facility] X-Ray Knee Ap & Lateral 04/24/2019 12:00:00 AM EST [facility] ([facility]) X-RAY EXAM OF KNEE 1 OR 2 X-RAY EXAM OF KNEE 1 OR 2 04/24/2019 1 2:00:00 AM EST Webb Sarah - [facility] POSTOP FOLLOW-UP VISIT POSTOP FOLLOW-UP VISIT 04/24/2019 12:00:00 A M EST Webb Sarah - [facility] X-RAY EXAM OF KNEE 1 OR 2 X-RAY EXAM OF KNEE 1 OR 2 04/24/2019 1 2:00:00 AM EST Webb Sarah - [facility] POSTOP FOLLOW-UP VISIT POSTOP FOLLOW-UP VISIT 04/24/2019 12:00:00 A M EST Webb Sarah - [facility] POSTOP FOLLOW-UP VISIT POSTOP FOLLOW-UP VISIT 04/24/2019 12:00:00 A M EST Webb Sarah - [facility] X-RAY EXAM OF KNEE 1 OR 2 X-RAY EXAM OF KNEE 1 OR 2 04/24/2019 1 2:00:00 AM EST Webb Sarah - [facility] Reposition Left Knee Joint, Open Approach Reposition L eft Knee Joint, Open Approach 04/10/2019 12:00:00 AM EST Webb Tonja rdes - [facility] REVISION OF UNSTABLE KNEECAP REVISION OF UNSTABLE KNEECAP 12:00:00 AM EST Webb Sarah - [facility] left knee reconstruction left knee reconstruction 04/10/2019 12:00: 00 AM EST Webb Sarah - [facility] RECONSTRUCTION KNEE RECONSTRUCTION KNEE 04/10/2019 12:00:00 AM EST Webb Sarah - [facility] REVISION OF UNSTABLE KNEECAP REVISION OF UNSTABLE KNEECAP 12:00:00 AM EST Webb Sarah - [facility] Reposition Left Knee Joint, Open Approach Reposition L eft Knee Joint, Open Approach 04/10/2019 12:00:00 AM EST Webb Tonja rdes - [facility] RECONSTRUCTION KNEE RECONSTRUCTION KNEE 04/10/2019 12:00:00 AM EST Webb Sarah - [facility] REVISION OF UNSTABLE KNEECAP REVISION OF UNSTABLE KNEECAP 12:00:00 AM EST Webb Sarah - [facility] left knee reconstruction left knee reconstruction 04/10/2019 12:00: 00 AM EST Webb Sarah - [facility] REVISION OF UNSTABLE KNEECAP REVISION OF UNSTABLE KNEECAP 12:00:00 AM EST Webb Sarah - [facility] Reconstruct Patella W/Extensor Realignment/Muscle Advance/Re lease 04/10/2019 12:00:00 AM EST [facility] ([facility]) Reconstruct Patella W/Extensor Realignment/Muscle Advance/Re lease 04/10/2019 12:00:00 AM EST [facility] ([facility]) left knee reconstruction left knee reconstruction 04/10/2019 12:00: 00 AM EST Webb Sarah - [facility] REVISION OF UNSTABLE KNEECAP REVISION OF UNSTABLE KNEECAP 12:00:00 AM EST Webb Sarah - [facility] RECONSTRUCTION KNEE RECONSTRUCTION KNEE 04/10/2019 12:00:00 AM EST Webb Sarah - [facility] REVISION OF UNSTABLE KNEECAP REVISION OF UNSTABLE KNEECAP 12:00:00 AM EST Webb Sarah - [facility] Reposition Left Knee Joint, Open Approach Reposition L eft Knee Joint, Open Approach 04/10/2019 12:00:00 AM EST Webb Tonja florez - [facility] REVISION OF UNSTABLE KNEECAP REVISION OF UNSTABLE KNEECAP 12:00:00 AM EST Webb Sarah - [facility] RECONSTRUCTION KNEE RECONSTRUCTION KNEE 04/10/2019 12:00:00 AM EST Webb Sarah - [facility] REVISION OF UNSTABLE KNEECAP REVISION OF UNSTABLE KNEECAP 12:00:00 AM EST Webb Sarah - [facility] left knee reconstruction left knee reconstruction 04/10/2019 12:00: 00 AM EST Webb Sarah - [facility] Reposition Left Knee Joint, Open Approach Reposition L eft Knee Joint, Open Approach 04/10/2019 12:00:00 AM EST Webb Tonja rdes - [facility] left knee reconstruction left knee reconstruction 04/10/2019 12:00: 00 AM EST Webb Sarah - [facility] REVISION OF UNSTABLE KNEECAP REVISION OF UNSTABLE KNEECAP 12:00:00 AM EST Webb Sarah - [facility] REVISION OF UNSTABLE KNEECAP REVISION OF UNSTABLE KNEECAP 12:00:00 AM EST Webb Sarah - [facility] Reposition Left Knee Joint, Open Approach Reposition L eft Knee Joint, Open Approach 04/10/2019 12:00:00 AM EST Webb Tonja rdes - [facility] RECONSTRUCTION KNEE RECONSTRUCTION KNEE 04/10/2019 12:00:00 AM EST Webb Sarah - [facility] REVISION OF UNSTABLE KNEECAP REVISION OF UNSTABLE KNEECAP 12:00:00 AM EST Webb Sarah - [facility] REVISION OF UNSTABLE KNEECAP REVISION OF UNSTABLE KNEECAP 12:00:00 AM EST Webb Sarah - [facility] Reposition Left Knee Joint, Open Approach Reposition L eft Knee Joint, Open Approach 04/10/2019 12:00:00 AM EST Webb Tonja rdes - [facility] RECONSTRUCTION KNEE RECONSTRUCTION KNEE 04/10/2019 12:00:00 AM EST Webb Sarah - [facility] OFFICE/OUTPATIENT VISIT EST OFFICE/OUTPATIENT VISIT EST 05/2019 12:00:00 AM EST Webb Sarah - [facility] OFFICE/OUTPATIENT VISIT EST OFFICE/OUTPATIENT VISIT EST 05/2019 12:00:00 AM EST Webb Sarah - [facility] OFFICE/OUTPATIENT VISIT EST OFFICE/OUTPATIENT VISIT EST 05/2019 12:00:00 AM EST Webb Sarah - [facility] OFFICE/OUTPATIENT VISIT EST OFFICE/OUTPATIENT VISIT EST 05/2019 12:00:00 AM EST Webb Sarah - [facility] OFFICE/OUTPATIENT VISIT EST OFFICE/OUTPATIENT VISIT EST 05/2019 12:00:00 AM EST Webb Sarah - [facility] OFFICE/OUTPATIENT VISIT EST OFFICE/OUTPATIENT VISIT EST 05/2019 12:00:00 AM EST Webb Sarah - [facility] ONDANSETRON HCL INJECTION ONDANSETRON HCL INJECTION 04/03/2019 1 2:00:00 AM EST Webb Sarah - [facility] URINE CULTURE/COLONY COUNT URINE CULTURE/COLONY COUNT 2019 12:00:00 AM EST Webb Sarah - [facility] C-REACTIVE PROTEIN C-REACTIVE PROTEIN 04/03/2019 12:00:00 AM EST Webb Sarah - [facility] EMERGENCY DEPT VISIT EMERGENCY DEPT VISIT 04/03/2019 12:00:00 AM ES T Webb Sarah - [facility] CT ABD & PELVIS W/O CONTRAST CT ABD & PELVIS W/O CONTRAST 12:00:00 AM EST Webb Sarah - [facility] THER/PROPH/DIAG INJ IV PUSH THER/PROPH/DIAG INJ IV PUSH 04/2019 12:00:00 AM EST Webb Sarah - [facility] ASSAY OF LIPASE ASSAY OF LIPASE 04/03/2019 12:00:00 AM EST Webb Sarah - [facility] BLOOD COUNT COMPLETE AUTO&AUTO DIFRNTL WBC COUNT COMPLETE CB C W/AUTO DIFF WBC 04/03/2019 12:00:00 AM EST Webb Sarah - [facility] ROUTINE VENIPUNCTURE ROUTINE VENIPUNCTURE 04/03/2019 12:00:00 AM ES T Webb Sarah - [facility] COMPREHEN METABOLIC PANEL COMPREHEN METABOLIC PANEL 04/03/2019 1 2:00:00 AM EST Webb Sarah - [facility] URINALYSIS AUTO W/SCOPE URINALYSIS AUTO W/SCOPE 04/03/2019 12:00:00 AM EST Webb Sarah - [facility] CHORIONIC GONADOTROPIN ASSAY CHORIONIC GONADOTROPIN ASSAY 12:00:00 AM EST Webb Sarah - [facility] Catheterize for urine spec Catheterize for urine spec 2019 12:00:00 AM EST Webb Sarah - [facility] URINALYSIS AUTO W/SCOPE URINALYSIS AUTO W/SCOPE 04/03/2019 12:00:00 AM EST Webb Sarah - [facility] EMERGENCY DEPT VISIT EMERGENCY DEPT VISIT 04/03/2019 12:00:00 AM ES T Webb Sarah - [facility] ONDANSETRON HCL INJECTION ONDANSETRON HCL INJECTION 04/03/2019 1 2:00:00 AM EST Webb Sarah - [facility] URINE CULTURE/COLONY COUNT URINE CULTURE/COLONY COUNT 2019 12:00:00 AM EST Webb Sarah - [facility] C-REACTIVE PROTEIN C-REACTIVE PROTEIN 04/03/2019 12:00:00 AM EST Webb Sarah - [facility] ROUTINE VENIPUNCTURE ROUTINE VENIPUNCTURE 04/03/2019 12:00:00 AM ES T Webb Sarah - [facility] CHORIONIC GONADOTROPIN ASSAY CHORIONIC GONADOTROPIN ASSAY 12:00:00 AM EST Webb Sarah - [facility] Catheterize for urine spec Catheterize for urine spec 2019 12:00:00 AM EST Webb Sarah - [facility] BLOOD COUNT COMPLETE AUTO&AUTO DIFRNTL WBC COUNT COMPLETE CB C W/AUTO DIFF WBC 04/03/2019 12:00:00 AM EST Webb Sarah - [facility] COMPREHEN METABOLIC PANEL COMPREHEN METABOLIC PANEL 04/03/2019 1 2:00:00 AM EST Webb Sarah - [facility] CT ABD & PELVIS W/O CONTRAST CT ABD & PELVIS W/O CONTRAST 12:00:00 AM EST Webb Sarah - [facility] THER/PROPH/DIAG INJ IV PUSH THER/PROPH/DIAG INJ IV PUSH 04/2019 12:00:00 AM EST Webb Sarah - [facility] ASSAY OF LIPASE ASSAY OF LIPASE 04/03/2019 12:00:00 AM EST Webb Sarah - [facility] THER/PROPH/DIAG INJ IV PUSH THER/PROPH/DIAG INJ IV PUSH 04/2019 12:00:00 AM EST Webb Sarah - [facility] BLOOD COUNT COMPLETE AUTO&AUTO DIFRNTL WBC COUNT COMPLETE CB C W/AUTO DIFF WBC 04/03/2019 12:00:00 AM EST Webb Sarah - [facility] CHORIONIC GONADOTROPIN ASSAY CHORIONIC GONADOTROPIN ASSAY 12:00:00 AM EST Webb Sarah - [facility] Catheterize for urine spec Catheterize for urine spec 2019 12:00:00 AM EST Webb Sarah - [facility] ASSAY OF LIPASE ASSAY OF LIPASE 04/03/2019 12:00:00 AM EST Webb Sarah - [facility] URINE CULTURE/COLONY COUNT URINE CULTURE/COLONY COUNT 2019 12:00:00 AM EST Webb Sarah - [facility] URINALYSIS AUTO W/SCOPE URINALYSIS AUTO W/SCOPE 04/03/2019 12:00:00 AM EST Webb Sarah - [facility] C-REACTIVE PROTEIN C-REACTIVE PROTEIN 04/03/2019 12:00:00 AM EST Webb Sarah - [facility] ROUTINE VENIPUNCTURE ROUTINE VENIPUNCTURE 04/03/2019 12:00:00 AM ES T Webb Sarah - [facility] ONDANSETRON HCL INJECTION ONDANSETRON HCL INJECTION 04/03/2019 1 2:00:00 AM EST Webb Sarah - [facility] COMPREHEN METABOLIC PANEL COMPREHEN METABOLIC PANEL 04/03/2019 1 2:00:00 AM EST Webb Sarah - [facility] CT ABD & PELVIS W/O CONTRAST CT ABD & PELVIS W/O CONTRAST 12:00:00 AM EST Webb Sarah - [facility] EMERGENCY DEPT VISIT EMERGENCY DEPT VISIT 04/03/2019 12:00:00 AM ES T Webb Sarah - [facility] BLOOD COUNT COMPLETE AUTO&AUTO DIFRNTL WBC COUNT COMPLETE CB C W/AUTO DIFF WBC 04/03/2019 12:00:00 AM EST Webb Sarah - [facility] ONDANSETRON HCL INJECTION ONDANSETRON HCL INJECTION 04/03/2019 1 2:00:00 AM EST Webb Sarah - [facility] URINE CULTURE/COLONY COUNT URINE CULTURE/COLONY COUNT 2019 12:00:00 AM EST Webb Sarah - [facility] C-REACTIVE PROTEIN C-REACTIVE PROTEIN 04/03/2019 12:00:00 AM EST Webb Sarah - [facility] CHORIONIC GONADOTROPIN ASSAY CHORIONIC GONADOTROPIN ASSAY 12:00:00 AM EST Webb Sarah - [facility] ASSAY OF LIPASE ASSAY OF LIPASE 04/03/2019 12:00:00 AM EST Webb Sarah - [facility] THER/PROPH/DIAG INJ IV PUSH THER/PROPH/DIAG INJ IV PUSH 04/2019 12:00:00 AM EST Webb Sarah - [facility] Catheterize for urine spec Catheterize for urine spec 2019 12:00:00 AM EST Webb Sarah - [facility] COMPREHEN METABOLIC PANEL COMPREHEN METABOLIC PANEL 04/03/2019 1 2:00:00 AM EST Webb Sarah - [facility] URINALYSIS AUTO W/SCOPE URINALYSIS AUTO W/SCOPE 04/03/2019 12:00:00 AM EST Webb Sarah - [facility] ROUTINE VENIPUNCTURE ROUTINE VENIPUNCTURE 04/03/2019 12:00:00 AM ES T Webb Sarah - [facility] EMERGENCY DEPT VISIT EMERGENCY DEPT VISIT 04/03/2019 12:00:00 AM ES T Webb Sarah - [facility] CT ABD & PELVIS W/O CONTRAST CT ABD & PELVIS W/O CONTRAST 12:00:00 AM EST Webb Sarah - [facility] BLOOD COUNT COMPLETE AUTO&AUTO DIFRNTL WBC COUNT COMPLETE CB C W/AUTO DIFF WBC 04/03/2019 12:00:00 AM EST Webb Sarah - [facility] ROUTINE VENIPUNCTURE ROUTINE VENIPUNCTURE 04/03/2019 12:00:00 AM ES T Webb Sarah - [facility] COMPREHEN METABOLIC PANEL COMPREHEN METABOLIC PANEL 04/03/2019 1 2:00:00 AM EST Webb Sarah - [facility] CT ABD & PELVIS W/O CONTRAST CT ABD & PELVIS W/O CONTRAST 12:00:00 AM EST Webb Sarah - [facility] URINALYSIS AUTO W/SCOPE URINALYSIS AUTO W/SCOPE 04/03/2019 12:00:00 AM EST Webb Sarah - [facility] C-REACTIVE PROTEIN C-REACTIVE PROTEIN 04/03/2019 12:00:00 AM EST Webb Sarah - [facility] ASSAY OF LIPASE ASSAY OF LIPASE 04/03/2019 12:00:00 AM EST Webb Sarah - [facility] Catheterize for urine spec Catheterize for urine spec 2019 12:00:00 AM EST Webb Sarah - [facility] ONDANSETRON HCL INJECTION ONDANSETRON HCL INJECTION 04/03/2019 1 2:00:00 AM EST Webb Sarah - [facility] URINE CULTURE/COLONY COUNT URINE CULTURE/COLONY COUNT 2019 12:00:00 AM EST Webb Sarah - [facility] THER/PROPH/DIAG INJ IV PUSH THER/PROPH/DIAG INJ IV PUSH 0 04/2019 12:00:00 AM EST Webb Sarah - [facility] CHORIONIC GONADOTROPIN ASSAY CHORIONIC GONADOTROPIN ASSAY 12:00:00 AM EST Webb Sarah - [facility] EMERGENCY DEPT VISIT EMERGENCY DEPT VISIT 04/03/2019 12:00:00 AM ES T Webb Sarah - [facility] THER/PROPH/DIAG INJ IV PUSH THER/PROPH/DIAG INJ IV PUSH 04/2019 12:00:00 AM EST Webb Sarah - [facility] C-REACTIVE PROTEIN C-REACTIVE PROTEIN 04/03/2019 12:00:00 AM EST Webb Sarah - [facility] COMPREHEN METABOLIC PANEL COMPREHEN METABOLIC PANEL 04/03/2019 1 2:00:00 AM EST Webb Sarah - [facility] ROUTINE VENIPUNCTURE ROUTINE VENIPUNCTURE 04/03/2019 12:00:00 AM ES T Webb Sarah - [facility] URINALYSIS AUTO W/SCOPE URINALYSIS AUTO W/SCOPE 04/03/2019 12:00:00 AM EST Webb Sarah - [facility] BLOOD COUNT COMPLETE AUTO&AUTO DIFRNTL WBC COUNT COMPLETE CB C W/AUTO DIFF WBC 04/03/2019 12:00:00 AM EST Webb Sarah - [facility] EMERGENCY DEPT VISIT EMERGENCY DEPT VISIT 04/03/2019 12:00:00 AM ES T Webb Sarah - [facility] ONDANSETRON HCL INJECTION ONDANSETRON HCL INJECTION 04/03/2019 1 2:00:00 AM EST Webb Sarah - [facility] CHORIONIC GONADOTROPIN ASSAY CHORIONIC GONADOTROPIN ASSAY 12:00:00 AM EST Webb Sarah - [facility] URINE CULTURE/COLONY COUNT URINE CULTURE/COLONY COUNT 2019 12:00:00 AM EST Webb Sarah - [facility] Catheterize for urine spec Catheterize for urine spec 2019 12:00:00 AM EST Webb Sarah - [facility] CT ABD & PELVIS W/O CONTRAST CT ABD & PELVIS W/O CONTRAST 12:00:00 AM EST Webb Sarah - [facility] ASSAY OF LIPASE ASSAY OF LIPASE 04/03/2019 12:00:00 AM EST Webb Sarah - [facility] C-REACTIVE PROTEIN C-REACTIVE PROTEIN 04/03/2019 12:00:00 AM EST Webb Sarah - [facility] Catheterize for urine spec Catheterize for urine spec 2019 12:00:00 AM EST Webb Sarah - [facility] BLOOD COUNT COMPLETE AUTO&AUTO DIFRNTL WBC COUNT COMPLETE CB C W/AUTO DIFF WBC 04/03/2019 12:00:00 AM EST Webb Sarah - [facility] COMPREHEN METABOLIC PANEL COMPREHEN METABOLIC PANEL 04/03/2019 1 2:00:00 AM EST Webb Sarah - [facility] CHORIONIC GONADOTROPIN ASSAY CHORIONIC GONADOTROPIN ASSAY 12:00:00 AM EST Webb Sarah - [facility] ONDANSETRON HCL INJECTION ONDANSETRON HCL INJECTION 04/03/2019 1 2:00:00 AM EST Webb Sarah - [facility] URINE CULTURE/COLONY COUNT URINE CULTURE/COLONY COUNT 2019 12:00:00 AM EST Webb Sarah - [facility] CT ABD & PELVIS W/O CONTRAST CT ABD & PELVIS W/O CONTRAST 12:00:00 AM EST Webb Sarah - [facility] ROUTINE VENIPUNCTURE ROUTINE VENIPUNCTURE 04/03/2019 12:00:00 AM ES T Webb Sarah - [facility] EMERGENCY DEPT VISIT EMERGENCY DEPT VISIT 04/03/2019 12:00:00 AM ES T Webb Sarah - [facility] URINALYSIS AUTO W/SCOPE URINALYSIS AUTO W/SCOPE 04/03/2019 12:00:00 AM EST Webb Sarah - [facility] THER/PROPH/DIAG INJ IV PUSH THER/PROPH/DIAG INJ IV PUSH 02/0 04/2019 12:00:00 AM EST Webb Sarah - [facility] ASSAY OF LIPASE ASSAY OF LIPASE 04/03/2019 12:00:00 AM EST Webb Sarah - [facility] URINE CULTURE/COLONY COUNT URINE CULTURE/COLONY COUNT 2019 12:00:00 AM EST Webb Sarah - [facility] OFFICE/OUTPATIENT VISIT EST OFFICE/OUTPATIENT VISIT EST 03/02 12:00:00 AM EST Webb Sarah - [facility] OFFICE/OUTPATIENT VISIT EST OFFICE/OUTPATIENT VISIT EST 03/02 12:00:00 AM EST Webb Sarah - [facility] URINE CULTURE/COLONY COUNT URINE CULTURE/COLONY COUNT 2019 12:00:00 AM EST Webb Sarah - [facility] URINE CULTURE/COLONY COUNT URINE CULTURE/COLONY COUNT 2019 12:00:00 AM EST Webb Sarah - [facility] URINE CULTURE/COLONY COUNT URINE CULTURE/COLONY COUNT 2019 12:00:00 AM EST Webb Sarah - [facility] URINE CULTURE/COLONY COUNT URINE CULTURE/COLONY COUNT 2019 12:00:00 AM EST Webb Sarah - [facility] URINE CULTURE/COLONY COUNT URINE CULTURE/COLONY COUNT 2019 12:00:00 AM EST Webb Sarah - [facility] URINE CULTURE/COLONY COUNT URINE CULTURE/COLONY COUNT 2019 12:00:00 AM EST Webb Sarah - [facility] URINE CULTURE/COLONY COUNT URINE CULTURE/COLONY COUNT 2019 12:00:00 AM EST Webb Sarah - [facility] URINE CULTURE/COLONY COUNT URINE CULTURE/COLONY COUNT 2019 12:00:00 AM EST Webb Sarah - [facility] CHORIONIC GONADOTROPIN ASSAY CHORIONIC GONADOTROPIN ASSAY 12:00:00 AM EST Webb Sarah - [facility] ASSAY OF AMYLASE ASSAY OF AMYLASE 02/18/2019 12:00:00 AM EST Webb Sarah - [facility] COMPREHEN METABOLIC PANEL COMPREHEN METABOLIC PANEL 02/18/2019 1 2:00:00 AM EST Webb Sarah - [facility] EMERGENCY DEPT VISIT EMERGENCY DEPT VISIT 02/18/2019 12:00:00 AM ES T Webb Sarah - [facility] CT ABD & PELV W/CONTRAST CT ABD & PELV W/CONTRAST 02/18/2019 12:00: 00 AM EST Webb Sarah - [facility] THROMBOPLASTIN TIME PARTIAL THROMBOPLASTIN TIME PARTIAL 01/30 12:00:00 AM EST Webb Sarah - [facility] TRANSVAGINAL US NON-OB TRANSVAGINAL US NON-OB 02/18/2019 12:00:00 A M EST Webb Sarah - [facility] BLOOD COUNT COMPLETE AUTO&AUTO DIFRNTL WBC COUNT COMPLETE CB C W/AUTO DIFF WBC 02/18/2019 12:00:00 AM EST Webb Saarh - [facility] C-REACTIVE PROTEIN C-REACTIVE PROTEIN 02/18/2019 12:00:00 AM EST Webb Sarah - [facility] KETOROLAC TROMETHAMINE INJ KETOROLAC TROMETHAMINE INJ 2018 12:00:00 AM EST Webb Sarah - [facility] ROUTINE VENIPUNCTURE ROUTINE VENIPUNCTURE 02/18/2019 12:00:00 AM ES T Webb Sarah - [facility] ROUTINE VENIPUNCTURE ROUTINE VENIPUNCTURE 02/18/2019 12:00:00 AM ES T Webb Sarah - [facility] THER/PROPH/DIAG INJ IV PUSH THER/PROPH/DIAG INJ IV PUSH 01/30 12:00:00 AM EST Webb Sarah - [facility] ASSAY OF LIPASE ASSAY OF LIPASE 02/18/2019 12:00:00 AM EST Webb Sarah - [facility] EMERGENCY DEPT VISIT EMERGENCY DEPT VISIT 02/18/2019 12:00:00 AM ES T Webb Sarah - [facility] C-REACTIVE PROTEIN C-REACTIVE PROTEIN 02/18/2019 12:00:00 AM EST Webb Sarah - [facility] THROMBOPLASTIN TIME PARTIAL THROMBOPLASTIN TIME PARTIAL 01/30 12:00:00 AM EST Webb Sarah - [facility] KETOROLAC TROMETHAMINE INJ KETOROLAC TROMETHAMINE INJ 2018 12:00:00 AM EST Webb Sarah - [facility] ROUTINE VENIPUNCTURE ROUTINE VENIPUNCTURE 02/18/2019 12:00:00 AM ES T Webb Sarah - [facility] CHORIONIC GONADOTROPIN ASSAY CHORIONIC GONADOTROPIN ASSAY 12:00:00 AM EST Webb Sarah - [facility] ASSAY OF LIPASE ASSAY OF LIPASE 02/18/2019 12:00:00 AM EST Webb Sarah - [facility] COMPREHEN METABOLIC PANEL COMPREHEN METABOLIC PANEL 02/18/2019 1 2:00:00 AM EST Webb Sarah - [facility] BLOOD COUNT COMPLETE AUTO&AUTO DIFRNTL WBC COUNT COMPLETE CB C W/AUTO DIFF WBC 02/18/2019 12:00:00 AM EST Webb Sarah - [facility] THER/PROPH/DIAG INJ IV PUSH THER/PROPH/DIAG INJ IV PUSH 01/30 12:00:00 AM EST Webb Sarah - [facility] CT ABD & PELV W/CONTRAST CT ABD & PELV W/CONTRAST 02/18/2019 12:00: 00 AM EST Webb Sarah - [facility] TRANSVAGINAL US NON-OB TRANSVAGINAL US NON-OB 02/18/2019 12:00:00 A M EST Webb Sarah - [facility] ASSAY OF AMYLASE ASSAY OF AMYLASE 02/18/2019 12:00:00 AM EST Webb Sarah - [facility] ROUTINE VENIPUNCTURE ROUTINE VENIPUNCTURE 02/18/2019 12:00:00 AM ES T Webb Sarah - [facility] THROMBOPLASTIN TIME PARTIAL THROMBOPLASTIN TIME PARTIAL 01/30 12:00:00 AM EST Webb Sarah - [facility] KETOROLAC TROMETHAMINE INJ KETOROLAC TROMETHAMINE INJ 2018 12:00:00 AM EST Webb Sarah - [facility] ROUTINE VENIPUNCTURE ROUTINE VENIPUNCTURE 02/18/2019 12:00:00 AM ES T Webb Sarah - [facility] THER/PROPH/DIAG INJ IV PUSH THER/PROPH/DIAG INJ IV PUSH 01/30 12:00:00 AM EST Webb Sarah - [facility] CHORIONIC GONADOTROPIN ASSAY CHORIONIC GONADOTROPIN ASSAY 12:00:00 AM EST Webb Sarah - [facility] TRANSVAGINAL US NON-OB TRANSVAGINAL US NON-OB 02/18/2019 12:00:00 A M EST Webb Sarah - [facility] BLOOD COUNT COMPLETE AUTO&AUTO DIFRNTL WBC COUNT COMPLETE CB C W/AUTO DIFF WBC 02/18/2019 12:00:00 AM EST Webb Sarah - [facility] ROUTINE VENIPUNCTURE ROUTINE VENIPUNCTURE 02/18/2019 12:00:00 AM ES T Webb Sarah - [facility] EMERGENCY DEPT VISIT EMERGENCY DEPT VISIT 02/18/2019 12:00:00 AM ES T Webb Sarah - [facility] ASSAY OF LIPASE ASSAY OF LIPASE 02/18/2019 12:00:00 AM EST Webb Sarah - [facility] CT ABD & PELV W/CONTRAST CT ABD & PELV W/CONTRAST 02/18/2019 12:00: 00 AM EST Webb Sarah - [facility] COMPREHEN METABOLIC PANEL COMPREHEN METABOLIC PANEL 02/18/2019 1 2:00:00 AM EST Webb Sarah - [facility] ASSAY OF AMYLASE ASSAY OF AMYLASE 02/18/2019 12:00:00 AM EST Webb Sarah - [facility] C-REACTIVE PROTEIN C-REACTIVE PROTEIN 02/18/2019 12:00:00 AM EST Webb Sarah - [facility] ROUTINE VENIPUNCTURE ROUTINE VENIPUNCTURE 02/18/2019 12:00:00 AM ES T Webb Sarah - [facility] COMPREHEN METABOLIC PANEL COMPREHEN METABOLIC PANEL 02/18/2019 1 2:00:00 AM EST Webb Sarah - [facility] CHORIONIC GONADOTROPIN ASSAY CHORIONIC GONADOTROPIN ASSAY 12:00:00 AM EST Webb Sarah - [facility] ROUTINE VENIPUNCTURE ROUTINE VENIPUNCTURE 02/18/2019 12:00:00 AM ES T Webb Sarah - [facility] C-REACTIVE PROTEIN C-REACTIVE PROTEIN 02/18/2019 12:00:00 AM EST Webb Sarah - [facility] ASSAY OF LIPASE ASSAY OF LIPASE 02/18/2019 12:00:00 AM EST Webb Sarah - [facility] ASSAY OF AMYLASE ASSAY OF AMYLASE 02/18/2019 12:00:00 AM EST Webb Sarah - [facility] THER/PROPH/DIAG INJ IV PUSH THER/PROPH/DIAG INJ IV PUSH 01/30 12:00:00 AM EST Webb Sarah - [facility] KETOROLAC TROMETHAMINE INJ KETOROLAC TROMETHAMINE INJ 2018 12:00:00 AM EST Webb Sarah - [facility] CT ABD & PELV W/CONTRAST CT ABD & PELV W/CONTRAST 02/18/2019 12:00: 00 AM EST Webb Sarah - [facility] EMERGENCY DEPT VISIT EMERGENCY DEPT VISIT 02/18/2019 12:00:00 AM ES T Webb Sarah - [facility] THROMBOPLASTIN TIME PARTIAL THROMBOPLASTIN TIME PARTIAL 01/30 12:00:00 AM EST Webb Sarah - [facility] BLOOD COUNT COMPLETE AUTO&AUTO DIFRNTL WBC COUNT COMPLETE CB C W/AUTO DIFF WBC 02/18/2019 12:00:00 AM EST Webb Sarah - [facility] TRANSVAGINAL US NON-OB TRANSVAGINAL US NON-OB 02/18/2019 12:00:00 A M EST Webb Sarah - [facility] THROMBOPLASTIN TIME PARTIAL THROMBOPLASTIN TIME PARTIAL 01/30 12:00:00 AM EST Webb Sarah - [facility] CHORIONIC GONADOTROPIN ASSAY CHORIONIC GONADOTROPIN ASSAY 12:00:00 AM EST Webb Sarah - [facility] ROUTINE VENIPUNCTURE ROUTINE VENIPUNCTURE 02/18/2019 12:00:00 AM ES T Webb Sarah - [facility] ROUTINE VENIPUNCTURE ROUTINE VENIPUNCTURE 02/18/2019 12:00:00 AM ES T Webb Sarah - [facility] ASSAY OF AMYLASE ASSAY OF AMYLASE 02/18/2019 12:00:00 AM EST Webb Sarah - [facility] BLOOD COUNT COMPLETE AUTO&AUTO DIFRNTL WBC COUNT COMPLETE CB C W/AUTO DIFF WBC 02/18/2019 12:00:00 AM EST Webb Sarah - [facility] THER/PROPH/DIAG INJ IV PUSH THER/PROPH/DIAG INJ IV PUSH 01/30 12:00:00 AM EST Webb Sarah - [facility] ASSAY OF LIPASE ASSAY OF LIPASE 02/18/2019 12:00:00 AM EST Webb Sarah - [facility] C-REACTIVE PROTEIN C-REACTIVE PROTEIN 02/18/2019 12:00:00 AM EST Webb Sarah - [facility] CT ABD & PELV W/CONTRAST CT ABD & PELV W/CONTRAST 02/18/2019 12:00: 00 AM EST Webb Sarah - [facility] TRANSVAGINAL US NON-OB TRANSVAGINAL US NON-OB 02/18/2019 12:00:00 A M EST Webb Sarah - [facility] COMPREHEN METABOLIC PANEL COMPREHEN METABOLIC PANEL 02/18/2019 1 2:00:00 AM EST Webb Sarah - [facility] KETOROLAC TROMETHAMINE INJ KETOROLAC TROMETHAMINE INJ 2018 12:00:00 AM EST Webb Sarah - [facility] EMERGENCY DEPT VISIT EMERGENCY DEPT VISIT 02/18/2019 12:00:00 AM ES T Webb Sarah - [facility] EMERGENCY DEPT VISIT EMERGENCY DEPT VISIT 02/18/2019 12:00:00 AM ES T Webb Sarah - [facility] COMPREHEN METABOLIC PANEL COMPREHEN METABOLIC PANEL 02/18/2019 1 2:00:00 AM EST Webb Sarah - [facility] TRANSVAGINAL US NON-OB TRANSVAGINAL US NON-OB 02/18/2019 12:00:00 A M EST Webb Sarah - [facility] KETOROLAC TROMETHAMINE INJ KETOROLAC TROMETHAMINE INJ 2018 12:00:00 AM EST Webb Sarah - [facility] ROUTINE VENIPUNCTURE ROUTINE VENIPUNCTURE 02/18/2019 12:00:00 AM ES T Webb Sarah - [facility] CHORIONIC GONADOTROPIN ASSAY CHORIONIC GONADOTROPIN ASSAY 12:00:00 AM EST Webb Sarah - [facility] ASSAY OF LIPASE ASSAY OF LIPASE 02/18/2019 12:00:00 AM EST Webb Sarah - [facility] THER/PROPH/DIAG INJ IV PUSH THER/PROPH/DIAG INJ IV PUSH 01/30 12:00:00 AM EST Webb Sarah - [facility] ASSAY OF AMYLASE ASSAY OF AMYLASE 02/18/2019 12:00:00 AM EST Webb Sarah - [facility] BLOOD COUNT COMPLETE AUTO&AUTO DIFRNTL WBC COUNT COMPLETE CB C W/AUTO DIFF WBC 02/18/2019 12:00:00 AM EST Webb Sarah - [facility] C-REACTIVE PROTEIN C-REACTIVE PROTEIN 02/18/2019 12:00:00 AM EST Webb Sarah - [facility] ROUTINE VENIPUNCTURE ROUTINE VENIPUNCTURE 02/18/2019 12:00:00 AM ES T Webb Sarah - [facility] CT ABD & PELV W/CONTRAST CT ABD & PELV W/CONTRAST 02/18/2019 12:00: 00 AM EST Webb Sarah - [facility] THROMBOPLASTIN TIME PARTIAL THROMBOPLASTIN TIME PARTIAL 01/30 12:00:00 AM EST Webb Sarah - [facility] ASSAY OF AMYLASE ASSAY OF AMYLASE 02/18/2019 12:00:00 AM EST Webb Sarah - [facility] ROUTINE VENIPUNCTURE ROUTINE VENIPUNCTURE 02/18/2019 12:00:00 AM ES T Webb Sarah - [facility] COMPREHEN METABOLIC PANEL COMPREHEN METABOLIC PANEL 02/18/2019 1 2:00:00 AM EST Webb Sarah - [facility] BLOOD COUNT COMPLETE AUTO&AUTO DIFRNTL WBC COUNT COMPLETE CB C W/AUTO DIFF WBC 02/18/2019 12:00:00 AM EST Webb Sarah - [facility] THER/PROPH/DIAG INJ IV PUSH THER/PROPH/DIAG INJ IV PUSH 01/30 12:00:00 AM EST Webb Sarah - [facility] CHORIONIC GONADOTROPIN ASSAY CHORIONIC GONADOTROPIN ASSAY 12:00:00 AM EST Webb Sarah - [facility] KETOROLAC TROMETHAMINE INJ KETOROLAC TROMETHAMINE INJ 2018 12:00:00 AM EST Webb Sarah - [facility] THROMBOPLASTIN TIME PARTIAL THROMBOPLASTIN TIME PARTIAL 01/30 12:00:00 AM EST Webb Sarah - [facility] ASSAY OF LIPASE ASSAY OF LIPASE 02/18/2019 12:00:00 AM EST Webb Sarah - [facility] C-REACTIVE PROTEIN C-REACTIVE PROTEIN 02/18/2019 12:00:00 AM EST Webb Sarah - [facility] ROUTINE VENIPUNCTURE ROUTINE VENIPUNCTURE 02/18/2019 12:00:00 AM ES T Webb Sarah - [facility] TRANSVAGINAL US NON-OB TRANSVAGINAL US NON-OB 02/18/2019 12:00:00 A M EST Webb Sarah - [facility] EMERGENCY DEPT VISIT EMERGENCY DEPT VISIT 02/18/2019 12:00:00 AM ES T Webb Sarah - [facility] CT ABD & PELV W/CONTRAST CT ABD & PELV W/CONTRAST 02/18/2019 12:00: 00 AM EST Webb Sarah - [facility] EMERGENCY DEPT VISIT EMERGENCY DEPT VISIT 02/18/2019 12:00:00 AM ES T Webb Sarah - [facility] KETOROLAC TROMETHAMINE INJ KETOROLAC TROMETHAMINE INJ 2018 12:00:00 AM EST Webb Sarah - [facility] C-REACTIVE PROTEIN C-REACTIVE PROTEIN 02/18/2019 12:00:00 AM EST Webb Sarah - [facility] COMPREHEN METABOLIC PANEL COMPREHEN METABOLIC PANEL 02/18/2019 1 2:00:00 AM EST Webb Sarah - [facility] CT ABD & PELV W/CONTRAST CT ABD & PELV W/CONTRAST 02/18/2019 12:00: 00 AM EST Webb Sarah - [facility] ROUTINE VENIPUNCTURE ROUTINE VENIPUNCTURE 02/18/2019 12:00:00 AM ES T Webb Sarah - [facility] CHORIONIC GONADOTROPIN ASSAY CHORIONIC GONADOTROPIN ASSAY 12:00:00 AM EST Webb Sarah - [facility] ROUTINE VENIPUNCTURE ROUTINE VENIPUNCTURE 02/18/2019 12:00:00 AM ES T Webb Sarah - [facility] ASSAY OF AMYLASE ASSAY OF AMYLASE 02/18/2019 12:00:00 AM EST Webb Sarah - [facility] THROMBOPLASTIN TIME PARTIAL THROMBOPLASTIN TIME PARTIAL 01/30 12:00:00 AM EST Webb Sarah - [facility] TRANSVAGINAL US NON-OB TRANSVAGINAL US NON-OB 02/18/2019 12:00:00 A M EST Webb Sarah - [facility] ASSAY OF LIPASE ASSAY OF LIPASE 02/18/2019 12:00:00 AM EST Webb Sarah - [facility] BLOOD COUNT COMPLETE AUTO&AUTO DIFRNTL WBC COUNT COMPLETE CB C W/AUTO DIFF WBC 02/18/2019 12:00:00 AM EST Webb Sarah - [facility] THER/PROPH/DIAG INJ IV PUSH THER/PROPH/DIAG INJ IV PUSH 01/30 12:00:00 AM EST Webb Sarah - [facility] CHORIONIC GONADOTROPIN ASSAY CHORIONIC GONADOTROPIN ASSAY 12:00:00 AM EST Webb Sarah - [facility] THROMBOPLASTIN TIME PARTIAL THROMBOPLASTIN TIME PARTIAL 01/30 12:00:00 AM EST Webb Sarah - [facility] C-REACTIVE PROTEIN C-REACTIVE PROTEIN 02/18/2019 12:00:00 AM EST Webb Sarah - [facility] ASSAY OF LIPASE ASSAY OF LIPASE 02/18/2019 12:00:00 AM EST Webb Sarah - [facility] THER/PROPH/DIAG INJ IV PUSH THER/PROPH/DIAG INJ IV PUSH 01/30 12:00:00 AM EST Webb Sarah - [facility] COMPREHEN METABOLIC PANEL COMPREHEN METABOLIC PANEL 02/18/2019 1 2:00:00 AM EST Webb Sarah - [facility] ROUTINE VENIPUNCTURE ROUTINE VENIPUNCTURE 02/18/2019 12:00:00 AM ES T Webb Sarah - [facility] EMERGENCY DEPT VISIT EMERGENCY DEPT VISIT 02/18/2019 12:00:00 AM ES T Webb Sarah - [facility] TRANSVAGINAL US NON-OB TRANSVAGINAL US NON-OB 02/18/2019 12:00:00 A M EST Webb Sarah - [facility] BLOOD COUNT COMPLETE AUTO&AUTO DIFRNTL WBC COUNT COMPLETE CB C W/AUTO DIFF WBC 02/18/2019 12:00:00 AM EST Webb Sarah - [facility] CT ABD & PELV W/CONTRAST CT ABD & PELV W/CONTRAST 02/18/2019 12:00: 00 AM EST Webb Sarah - [facility] KETOROLAC TROMETHAMINE INJ KETOROLAC TROMETHAMINE INJ 2018 12:00:00 AM EST Webb Sarah - [facility] ROUTINE VENIPUNCTURE ROUTINE VENIPUNCTURE 02/18/2019 12:00:00 AM ES T Webb Sarah - [facility] ASSAY OF AMYLASE ASSAY OF AMYLASE 02/18/2019 12:00:00 AM EST Webb Sarah - [facility] COMPREHEN METABOLIC PANEL COMPREHEN METABOLIC PANEL 02/18/2019 1 2:00:00 AM EST Webb Sarah - [facility] CHORIONIC GONADOTROPIN ASSAY CHORIONIC GONADOTROPIN ASSAY 12:00:00 AM EST Webb Sarah - [facility] THROMBOPLASTIN TIME PARTIAL THROMBOPLASTIN TIME PARTIAL 01/30 12:00:00 AM EST Webb Sarah - [facility] TRANSVAGINAL US NON-OB TRANSVAGINAL US NON-OB 02/18/2019 12:00:00 A M EST Webb Sarah - [facility] EMERGENCY DEPT VISIT EMERGENCY DEPT VISIT 02/18/2019 12:00:00 AM ES T Webb Sarah - [facility] KETOROLAC TROMETHAMINE INJ KETOROLAC TROMETHAMINE INJ 2018 12:00:00 AM EST Webb Sarah - [facility] ROUTINE VENIPUNCTURE ROUTINE VENIPUNCTURE 02/18/2019 12:00:00 AM ES T Webb Sarah - [facility] THER/PROPH/DIAG INJ IV PUSH THER/PROPH/DIAG INJ IV PUSH 01/30 12:00:00 AM EST Webb Sarah - [facility] C-REACTIVE PROTEIN C-REACTIVE PROTEIN 02/18/2019 12:00:00 AM EST Webb Sarah - [facility] BLOOD COUNT COMPLETE AUTO&AUTO DIFRNTL WBC COUNT COMPLETE CB C W/AUTO DIFF WBC 02/18/2019 12:00:00 AM EST Webb Sarah - [facility] ROUTINE VENIPUNCTURE ROUTINE VENIPUNCTURE 02/18/2019 12:00:00 AM ES T Webb Sarah - [facility] CT ABD & PELV W/CONTRAST CT ABD & PELV W/CONTRAST 02/18/2019 12:00: 00 AM EST Webb Sarah - [facility] ASSAY OF AMYLASE ASSAY OF AMYLASE 02/18/2019 12:00:00 AM EST Webb Sarah - [facility] ASSAY OF LIPASE ASSAY OF LIPASE 02/18/2019 12:00:00 AM EST Webb Sarah - [facility] C-REACTIVE PROTEIN C-REACTIVE PROTEIN 02/18/2019 12:00:00 AM EST Webb Sarah - [facility] ROUTINE VENIPUNCTURE ROUTINE VENIPUNCTURE 02/18/2019 12:00:00 AM ES T Webb Sarah - [facility] THROMBOPLASTIN TIME PARTIAL THROMBOPLASTIN TIME PARTIAL 01/30 12:00:00 AM EST Webb Sarah - [facility] BLOOD COUNT COMPLETE AUTO&AUTO DIFRNTL WBC COUNT COMPLETE CB C W/AUTO DIFF WBC 02/18/2019 12:00:00 AM EST Webb Sarah - [facility] EMERGENCY DEPT VISIT EMERGENCY DEPT VISIT 02/18/2019 12:00:00 AM ES T Webb Sarah - [facility] ROUTINE VENIPUNCTURE ROUTINE VENIPUNCTURE 02/18/2019 12:00:00 AM ES T Webb Sarah - [facility] [facility] ASSAY OF LIPASE ASSAY OF LIPASE 02/18/2019 12:00:00 AM EST Webb Sarah - [facility], [facility] THER/PROPH/DIAG INJ IV PUSH THER/PROPH/DIAG INJ IV PUSH 01/30 12:00:00 AM EST Webb Sarah - [facility], [facility] ASSAY OF AMYLASE ASSAY OF AMYLASE 02/18/2019 12:00:00 AM EST Webb Sarah - [facility], [facility] CHORIONIC GONADOTROPIN ASSAY CHORIONIC GONADOTROPIN ASSAY 12:00:00 AM EST Webb Sarah - [facility], [facility] COMPREHEN METABOLIC PANEL COMPREHEN METABOLIC PANEL 02/18/2019 1 2:00:00 AM EST Webb Sarah - [facility], [facility] CT ABD & PELV W/CONTRAST CT ABD & PELV W/CONTRAST 02/18/2019 12:00: 00 AM EST Webb Sarah - [facility], [facility] TRANSVAGINAL US NON-OB TRANSVAGINAL US NON-OB 02/18/2019 12:00:00 A M EST Webb Sarah - [facility], [facility] KETOROLAC TROMETHAMINE INJ KETOROLAC TROMETHAMINE INJ 2018 12:00:00 AM EST Webb Sarah - [facility], [facility] Results ID Date Data Source [id number] 12/20/2019 04:52:57 PM EDT [facility] Name Value Range Interpretation Code Description Data Arianne rce(s) Supporting Document(s) Progress Note [facility] [id number] lbm [file] [id number]/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/[id number] [file] [id number] ID Date Data Source [id number] 11/07/2019 11:33:00 PM EDT [facility] 1 OrderSheet [facility] Emergency Department [address] [place] [address] Phone #: hff- [phone] 11/07/2019 23:28 Patient: BERKLEY LOPEZ Sex: F [...] 25 mg M.D.;(NOW x1, HIGH 2 OrderSheet [facility] Emergency Department [address] [place] [address] Phone #: ext- [phone] 11/07/2019 23:28 Patient: BERKLEY LOPEZ Sex: F [...] rce(s) Supporting Document(s) ID Date Data Source [id number] 11/07/2019 11:33:00 PM EDT [facility] 1 Medication Reconciliation Report [facility] Emergency Department [address] [place] [address] Phone #: ext- [phone] 11/07/2019 23:28 Patient: [...] 2. Substitution permitted.Pharmacy - [facility] #[id number] - [address], [place] [phone]. . -- Ronda Garcia M.D. Name Value Range Interpretation Code Description Data Arianne rce(s) Supporting Document(s) ID Date Data Source [id number] 11/07/2019 11:33:00 PM EDT [facility] 1 Medication Administration Record [facility] Emergency Department [address] [place] [address] Phone #: ext- [phone] 11/07/2019 23:28 Patient: BERKLEY LOPEZ Sex: F : 2000 Age: 19yWeight: 106.5 kgHeight/Length: 66 inBMI: 37.9ALLERGIES: Penicillins Date/Time Medication Administered Medication OrderedStart NS [IV] NS IV 1000 mL Bolus: : Bolus 587326:11/08/2019 Dose: IV Fluids mL (X1)Tanner Hopson RN [...] rce(s) Supporting Document(s) ID Date Data Source [id number] 11/07/2019 11:33:00 PM EDT [facility] 1 General Instructions [facility] Emergency Department [address] [place] [address] Phone #: ext- [phone] 11/07/2019 23:28 Patient: BERKLEY LOPEZ Sex: F : 2000 Age: 19yPrimary dysmenorrheaINSTRUCTIONSDrink plenty of fluids. Do not smoke. No alcohol.Warnings: Further evaluation is necessary (DIRECTOR OF MANAGED CARE). It is very important to follow up [...] 2. Substitution permitted.Pharmacy - [facility] #[id number] - [address], [place] [phone]. .Follow-up:Return to the emergency department as needed. Follow up with your healthcare provider in three even ifwell. Call for an appointment. Reason for referral: evaluation and treatment. Summary of care provided topatient via paper. Follow up with a radio interference trouble shooter in three days even if well. Call for an appointment.Reason for referral: evaluation and treatment. Summary of care provided to patient via paper.Understanding of the discharge instructions verbalized by patient. Expected course of illness, dischargeinstructions, activity level, diet, prescriptions x1, follow-up appointment and risks and benefits of treatmentre viewed with patient and understanding verbalized. Agrees to plan of care.Follow- up with: [facility], , , [address] [place], [place], [facility] Follow up in three days even if well. Call for an appointment. Reason for referral: evaluation andtreatment. Summary of care provided to patient via paper. 2 General Instructions [facility] Emergency Department [address] [place] [address] Phone #: ext- [phone] 11/07/2019 23:28 Patient: [...] the uterus (not cancer) 3 General Instructions [facility] Emergency Department [address] [place] [address] Phone #: ext- [phone] 11/07/2019 23:28 Patient: [...] or occurs between periods 4 General Instructions [facility] Emergency Department [address] [place] [address] Phone #: ext- [phone] 11/07/2019 23:28 Patient: BERKLEY LOPEZ Sex: F : 2000 Age: 19y Unusual vaginal discharge between periods Bleeding becomes heavy (soaking more than 1 pad or tampon every hour for 3 hours) Passage of pink or rodriguez tissue from the vagina [phone] [employer]. [address] [place] [address]. All rights reserved. This information is not intended as asubstitute for professional medical care. Always follow your healthcare professional's instructions. You have been given the following additional information: Painful Menstrual Periods (Dysmenorrhea)(Electronically signed by Ronda Garcia M.D. 11/08/2019 01:27) Name Value Range Interpretation Code Description Data Arianne rce(s) Supporting Document(s) ID Date Data Source [id number] 11/07/2019 11:33:00 PM EDT [facility] 1 Clinical Report - Nurses [facility] Emergency Department [address] [place] [address] Phone #: ext- [phone] 11/07/2019 23:28 Patient: BERKLEY LOPEZ Sex: F : 2000 Age: 19yTRIAGEArrived by private vehicle. Historian: patient.Triage time: 23:30 11/07/2019.Chief Complaint: PELVIC PAIN and VAGINAL BLEED.Onset. (3 days ago). ( Seen at [facility] for same, spotting this morning. This afternoon she noticed it gettingworse. Was dizzy when watching TV tonight. States that she went through 4 pads today, and has a"couple" golf ball sized clots before. Has PCOS, so her periods are irregular. States that she called margarethhas not scheduled a CUSTOMER CARE REPRESENTATIVE follow up yet.). ( Has had 3 [...] SURGERIES:.Knee Surgery. 2 Clinical Report - Nurses [facility] Emergency Department [address] [place] [address] Phone #: ext- [phone] 11/07/2019 23:28 Patient: BERKLEY LOPEZ Sex: F [...] site #2 3 Clinical Report - Nurses [facility] Emergency Department [address] [place] [address] Phone #: [phone] ext- [phone] 11/07/2019 23:28 Patient: BERKLEY LOPEZ Sex: F [...] Patient verbalized understanding. Written instructions provided in Polish. The patient was discharged by the physician. She was discharged home. She left ambulatory and via private vehicle. Parent driving. --01:16 11/08/19 Jennifer Hopson R.N. 01:13 11/08/19. BP: 122/81. MAP: 94. HR: 88. RR: 16. O2 saturation: 99%. Temp: 98 F. Pain level now: 05/08. --01:11/08/19 Jennifer Hopson R.N. Departure time: 01:19 11/08/2019. --01:19 11/08/19 Jennifer Hopson R.N. 4 Clinical Report - Nurses [facility] Emergency Department [address] [place] [address] Phone #: tfq- [phone] 11/07/2019 23:28 Patient: BERKLEY LOPEZ [place] Llct#: [id number] Sex: F : 2000 Age: 19yLocked/Released at 11/08/2019 05:05 by Jennifer Hopson R.N. Name Value Range Interpretation Code Description Data Arianne rce(s) Supporting Document(s) ID Date Data Source [id number] 11/07/2019 11:33:00 PM EDT [facility] 1 Clinical Report - Physicians/Mid Levels [facility] Emergency Department [address] [place] [address] Phone #: ext- [phone] 11/07/2019 23:28 Patient: [...] or hematuria. (pt has PCOS, seen at [facility] ER 2 days ago for passing small clot, not ; today, bleeding worse, went through 4 pads w some clots and pelvic pain; her periods are irregular; V x 3 today; was suppose to f/u w CUSTOMER CARE REPRESENTATIVE but no appt yet). Similar symptoms previously. Patient has had similar symptoms occasionally. Recent medical care: The patient was seen recently at another facility in the emergency department. ( seen at [facility] 2 days ago for passing blood [...] Medications: 2 Clinical Report - Physicians/Mid Levels [facility] Emergency Department [address] [place] [address] Phone #: ext- [phone] 11/07/2019 23:28 Patient: BERKLEY LOPEZ Sex: F [...] 36.0) 3 Clinical Report - Physicians/Mid Levels [facility] Emergency Department [address] [place] [address] Phone #: ext- [phone] 11/07/2019 23:28 Patient: [...] Male GFR Interprentation 20-49 yrs >60 mL/min Rpupex17-75 yrs >56 mL/min Normal 60-69 yrs >49 mL/min Normal 70-79yrs>42 mL/min Normal 80 and above >35 mL/min Normal Female GFRInterpretation 20-39 yrs >60 mL/min Normal 40-49 yrs >58 mL/minNormal 50-59 yrs >51 mL/min Normal 60-69 yrs >45 mL/min Whikft25-50 yrs >39 mL/min Normal 80 and above >32 mL/min NormalLipase: (DEBBI: 11/07/2019 23:37) ( [facility] 11/08/2019 00:17) Final results Test Result Flag Units (Reference) 4 Clinical Report - Physicians/Mid Levels [facility] Emergency Department [address] [place] [address] Phone #: ext- [phone] 11/07/2019 23:28 Patient: BERKLEY LOPEZ Sex: F : 2000 Age: 19y LIPASE 30 U/L (13 - 60) Beta-HCG, Qual Serum: (DEBBI: 11/07/2019 23:37) ( [facility] 11/08/2019 00:22) Final results Test Result Flag Units (Reference) HCG SERUM QUAL NEGATIVE (NORMAL: NEGAT HCG SERUM QL REENTER NEGATIVE (NORMAL: NEGAT { KIT LOT # [id number] ){ KIT EXP DATE 12/11/20 ){ PROCEDURAL CONTROL VALID ) Lactic Acid: (DEBBI: 11/07/2019 23:37) ( [facility] 11/08/2019 00:03) Final results Test Result Flag Units (Reference) LACTIC ACID 2.0 MMOL/L (0.2 - 2.2).PROGRESS AND PROCEDURESCourse of Care: 01:09 11/08/19. pt has nml speculum exam, no bleeding whatsoever; workup all in andnml, not ; probable dysmenorrhea; will refer her to DIRECTOR OF MANAGED CARE; d/c instructions given. Patient counseled in person [...] No alcohol. Warnings: Further evaluation is necessary (DIRECTOR OF MANAGED CARE). It is very important to follow up [...] worsens. 5 Clinical Report - Physicians/Mid Levels [facility] Emergency Department [address] [place] [address] Phone #: ext- [phone] 11/07/2019 23:28 Patient: BERKLEY LOPEZ Sex: F [...] Substitution permitted. Pharmacy - [facility] #[id number] - [address], [place] [phone]. . Follow-up: Return to the emergency department as needed. Follow up with your healthcare provider in three even if well. Call for an appointment. Reason for referral: evaluation and treatment. Summary of care provided to patient via pap er. Follow up with a radio interference trouble shooter in three days even if well. Call [...] Agrees to plan of care. Follow-up with: [facility], , , [address] [place] [address], [place], [place], [facility] Follow up in three days even if well. Call for an appointment. Reason for referral: evaluation and treatment. Summary of care provided to patient via paper.(Electronically signed by Ronda Garcia M.D. 11/08/2019 01:27) Name Value Range Interpretation Code Description Data Arianne rce(s) Supporting Document(s) ID Date Data Source [id number] 11/08/2019 12:22:00 AM EDT [facility] Name Value Range Interpretation Code Description Data Arianne rce(s) Supporting Document(s) HCG SERUM QUAL NEGATIVE NORMAL: NEGATIVE [facility] HCG SERUM QL REENTER NEGATIVE NORMAL: NEGATIVE [facility] { KIT LOT # [id number] ){ KIT EXP DATE 12/11/20 ){ PROCEDURAL CONTROL VALID ) ID Date Data Source [id number] 11/08/2019 12:19:00 AM EDT [facility] Name Value Range Interpretation Code Description Data Arianne rce(s) Supporting Document(s) CBC W/AUTOMATED DIFF [facility] COMPLETE BLOOD COUNT Leukocytes [#/volume] in Blood by Automated count 12.9 10^3/uL 4.2 - 11.0 H [facility] Erythrocytes [#/volume] in Blood by Automated count 4.69 10^6/uL 4. 20 - 5.40 [facility] Hemoglobin [Mass/volume] in Blood 13.2 g/dL 12.0 - 16.0 [facility] Hematocrit [Volume Fraction] of Blood by Automated count 39.7 % 3 7.0 - 47.0 [facility] Erythrocyte mean corpuscular volume [Entitic volume] by Auto mated count 84.6 fL 81.0 - 101 [facility] Erythrocyte mean corpuscular hemoglobin [Entitic mass] by Automated count 28.1 pg 27.0 - 34.0 [facility] Erythrocyte mean corpuscular hemoglobin concentration [Mass/volume] by Automated count 33.2 g/dL 31.0 - 36.0 [facility] Erythrocyte distribution width [Ratio] by Automated count 12.9 % 11.5 - 14.5 [facility] Platelets [#/volume] in Blood by Automated count 289 10^3/uL 150 - 45 0 [facility] Platelet mean volume [Entitic volume] in Blood by Automated count 11.2 fL 7.4 - 10.4 H [facility] Neutrophils/100 leukocytes in Blood by Automated count 53.0 % 37. 0 - 80.0 [facility] Lymphocytes/100 leukocytes in Blood by Manual count 34.8 % 25.0 - 40.0 [facility] Monocytes/100 leukocytes in Blood by Automated count 8.1 % 3.0 - 8.0 H [facility] Eosinophils/100 leukocytes in Blood by Automated count 2.9 % 0.0 - 7.0 [facility] Basophils/100 leukocytes in Blood by Automated count 0.8 % 0.0 - 2.5 [facility] %IG 0.4 % 0.0 - 0.0 H [facility] al %NRBC 0.0 % 0.0 - 0.0 [facility] al Neutrophils [#/volume] in Blood by Automated count 6.85 10^3/uL 2.00 - 6.90 [facility] Lymphocytes [#/volume] in Blood by Automated count 4.49 10^3/uL 0.60 - 3.40 H [facility] Monocytes [#/volume] in Blood by Automated count 1.04 10^3/uL 0.00 - 0.90 H [facility] Eosinophils [#/volume] in Blood by Automated count 0.38 10^3/uL 0.00 - 0.70 [facility] Basophils [#/volume] in Blood by Automated count 0.10 10^3/uL 0.00 - 0.20 [facility] #IG 0.05 10^3/uL 0.00 - 0.10 [facility] #NRBC 0.00 10^3/uL 0.00 - 0.00 [facility] MANUAL DIFF SEE BELOW [facility] ital Segmented neutrophils/100 leukocytes in Blood by Manual count 51 % 37 - 80 [facility] %LYMPH 42 % 25 - 40 H [facility] al %MONO 2 % 3 - 8 L [facility] al %EOS 5 % 0 - 7 [facility] al RBC MORPH NOT INDICATED [facility] sp[facility] ID Date Data Source [id number] 11/08/2019 12:16:00 AM EDT [facility] Name Value Range Interpretation Code Description Data Arianne rce(s) Supporting Document(s) Lipase [Enzymatic activity/volume] in Serum or Plasma 30 U/L 13 - 60 [facility] ID Date Data Source [id number] 11/08/2019 12:16:00 AM EDT [facility] Name Value Range Interpretation Code Description Data Arianne rce(s) Supporting Document(s) COMPREHENSIVE METABOLIC PANEL [facility] COMPREHENSIVE METABOLIC PANEL Sodium [Moles/volume] in Serum or Plasma 141 mEq/L 134 - 153 [facility] Potassium [Moles/volume] in Serum or Plasma 4.0 mEq/L 3.6 - 5.0 [facility] Chloride [Moles/volume] in Serum or Plasma 105 mEq/L 98 - 107 [facility] Carbon dioxide, total [Moles/volume] in Serum or Plasma 24 MEQ/L 22 - 30 [facility] Glucose [Mass/volume] in Serum or Plasma 87 MG/DL 65 - 110 [facility] BUN 8 MG/DL 7 - 21 [facility] Creatinine [Mass/volume] in Serum or Plasma 0.7 MG/DL 0.7 - 1.5 [facility] BUN/CREAT 11 8 - 27 [facility] al Protein [Mass/volume] in Serum or Plasma 6.9 G/DL 6.3 - 8.2 [facility] Albumin [Mass/volume] in Serum or Plasma 4.7 G/DL 3.9 - 5.0 [facility] Globulin [Mass/volume] in Serum by calculation 2.2 GM/DL 2.4 - 3.2 L [facility] A/G RATIO 2.1 0.8 - 2.0 H [facility] Calcium [Mass/volume] in Serum or Plasma 9.7 MG/DL 8.4 - 10.2 [facility] Bilirubin.total [Mass/volume] in Serum or Plasma <0.7 MG/DL 0.2 - 1.3 [facility] Alkaline phosphatase [Enzymatic activity/volume] in Serum or Plasma 102 U/L 38 - 126 [facility] Aspartate aminotransferase [Enzymatic activity/volume] in Serum or Plasma 19 U/L 5 - 40 [facility] Alanine aminotransferase [Enzymatic activity/volume] in Seru m or Plasma 22 U/L 7 - 56 [facility] Anion gap 3 in Serum or Plasma 12.0 mmol/L 8.0 - 16.0 [facility] AGE 19 yrs [facility] al NON-AA GFR >60 mL/min [facility] ital AFR AMER GFR >60 mL/min [facility] Ho spital Male GFR In terprentation 20-49 [...] >32 mL/min Normal ID Date Data Source [id number] 11/08/2019 12:03:00 AM EDT [facility] Name Value Range Interpretation Code Description Data Arianne rce(s) Supporting Document(s) Lactate [Moles/volume] in Serum or Plasma 2.0 MMOL/L 0.2 - 2.2 [facility] ID Date Data Source [id number] 07/20/2019 06:38:00 PM EDT [facility] [id number], [id number], [id number], [id number], Name Value Range Interpretation Code Description Data Arianne rce(s) Supporting Document(s) IMMAT. GRAN% 0.0-0.5 Normal (applies to non-numeric res ults) [facility] ID Date Data Source 07/20/2019 06:38:00 PM EDT [facility] [id number], [id number],[id number], [id number],[id number],045289, [id number],[id number],904664, Name Value Range Interpretation Code Description Data Arianne rce(s) Supporting Document(s) ABSOLUTE IMMATURE GRAN 0.00-0.40 Normal (applies to non-n umeric results) [facility] ID Date Data Source 07/20/2019 06:50:00 PM EDT [facility] [id number], [id number],[id number],473909, [id number],[id number],377474, [id number],[id number],676571, Name Value Range Interpretation Code Description Data Arianne rce(s) Supporting Document(s) EGFR - NON- Normal (applies to non-numeric results) [facility] >60 mL/min/1.73 EGFR - Normal (applies to non- numeric results) [facility] >60 mL/min/1.73 Potential Chronic Kidne y Disease: <60ml/min/1.73sq meters Kidney Failure: <15ml/min/1.73sq meters ID Date Data Source 07/20/2019 06:45:00 PM EDT [facility] [id number], [id number],[id number],384886, [id number],[id number],820970, [id number],[id number],067179, Name Value Range Interpretation Code Description Data Arianne rce(s) Supporting Document(s) URINE RBC 0-2 Above high normal [facility] URINE WBC 0-2 Abnormal (applies to non-numeric res ults) [facility] BACTERIA FEW Abnormal (applies to non-numeric res ults) [facility] BUDDING YEAST [facility] URINE SQUAMOUS EPI [facility] MUCOUS [facility] HYALINE CASTS [facility] CALCIUM OXALATE CRYSTALS PRESENT [facility] ID Date Data Source [id number] 07/20/2019 06:50:00 PM EDT [facility] [id number], Name Value Range Interpretation Code Description Data Arianne rce(s) Supporting Document(s) LIPASE Normal (applies to non-numeric results) [facility] <300 ID Date Data Source [id number] 07/20/2019 06:50:00 PM EDT [facility] [id number], Name Value Range Interpretation Code Description Data Arianne rce(s) Supporting Document(s) SODIUM 135-146 Normal (applies to non-numeric resul ts) [facility] POTASSIUM 3.5-5.3 Normal (applies to non-numeric resul ts) [facility] CHLORIDE 98-107 Above high normal [facility] CARBON DIOXIDE 21-32 Below low normal [facility] ANION GAP 5-15 Normal (applies to non-numeric resul ts) [facility] GLUCOSE 65-99 Above high normal [facility] Reference Ranges: Normal Fasting Glucose ........65-99 MG/DL Pre-Diabetes ......100-125 MG/DL Provisional Diagnosis of Diabetes .........>125 MG/DL BUN 7-23 Normal (applies to non-numeric results) [facility] CREATININE 0.5-1.0 Normal (applies to non-numeric resul ts) [facility] BUN/CREAT RATIO [facility] CALCIUM 8.4-10.4 Normal (applies to non-numeric resul ts) [facility] TOTAL PROTEIN 6.3-8.2 Normal (applies to non-numeric re sults) [facility] ALBUMIN 3.5-5.0 Normal (applies to non-numeric resul ts) [facility] ALB/GLOB RATIO 1.1-1.8 Normal (applies to non-numeric r esults) [facility] BILIRUBIN, TOTAL 0.0-1.3 Normal (applies to non-numeric results) [facility] ALK PHOSPHATASE 38-126 Normal (applies to non-numeric results) [facility] AST (SGOT) Normal (applies to non-numeric results) [facility] <59 ALT (SGPT) 0-34 Normal (applies to non-numeric resul ts) [facility] Reference Range:Females <35Males <50 ID Date Data Source [id number] 07/20/2019 06:38:00 PM EDT [facility] [id number], Name Value Range Interpretation Code Description Data Arianne rce(s) Supporting Document(s) WBC 4.0-10.5 Above high normal [facility] RBC 4.00-5.20 Above high normal [facility] HEMOGLOBIN 12.2-15.5 Normal (applies to non-numeric resul ts) [facility] HEMATOCRIT 35.0-47.0 Normal (applies to non-numeric resul ts) [facility] MCV 77.0-100.0 Normal (applies to non-numeric resul ts) [facility] MCH 25.0-33.0 Normal (applies to non-numeric resul ts) [facility] MCHC 31.0-36.0 Normal (applies to non-numeric resul ts) [facility] RDW 12.0-17.0 Normal (applies to non-numeric resul ts) [facility] PLATELET COUNT 125-425 Normal (applies to non-numeric r esults) [facility] MPV 8.0-12.0 Normal (applies to non-numeric results) [facility] ABSOLUTE NEUT 1.4-8.4 Normal (applies to non-numeric re sults) [facility] ABSOLUTE LYMPH 1.0-4.0 Normal (applies to non-numeric r esults) [facility] ABSOLUTE MONO 0.0-1.5 Normal (applies to non-numeric re sults) [facility] ABSOLUTE EOS 0.0-0.7 Normal (applies to non-numeric res ults) [facility] ABSOLUTE BASO 0.0-0.1 Normal (applies to non-numeric re sults) [facility] NEUT% 35.0-75.0 Normal (applies to non-numeric resul ts) [facility] LYMPH% 20.0-42.0 Normal (applies to non-numeric resul ts) [facility] MONO% 0.0-15.0 Normal (applies to non-numeric resul ts) [facility] EOS% 0.0-10.0 Normal (applies to non-numeric resul ts) [facility] BASO% 0.0-2.0 Normal (applies to non-numeric resul ts) [facility] ID Date Data Source MA 07/22/2019 07:40:00 AM EDT [facility] Name Value Range Interpretation Code Description Data Arianne rce(s) Supporting Document(s) CLEAN VOIDED URINE CULT [facility] [id number], Name: BERKLEY LOPEZ Citlaly Littlejohn: 2000 Sex: Sierra# Loc Src Site [id number] VSLAB URNC 07/20/19 CLEAN VOIDED URINE CULT FINAL <10,000 CFU/mL NOA SUGGESTIVE OF UROGENITAL SKIN CONTAMINATIONKEY FOR RESULTS: - NEW RESULTATT.PHYS.: DINORAH DOOLEY LOCATION: [facility]--ADM.DATE: 07/20/19 PATIENT : BERKLEY LOPEZ MICROBIOLOGYPRINTED: 07/22/19 07:40 REGULAR 2 PAGE: 2 of 1 1 ID Date Data Source [id number] 07/20/2019 06:41:00 PM EDT [facility] [id number], Name Value Range Interpretation Code Description Data Arianne rce(s) Supporting Document(s) URINE COLOR YELLOW Normal (applies to non-numeric resu lts) [facility] URINE APPEARANCE CLEAR Normal (applies to non-numeric results) [facility] UR SPECIFIC GRAV 1.005-1.030 Normal (applies to non-numeri c results) [facility] URINE PH 5.0-7.5 Normal (applies to non-numeric resul ts) [facility] URINE LEUKOCYTE LARGE NEGATIVE Abnormal (applies to non-numeri c results) [facility] URINE NITRITE NEGATIVE NEGATIVE Normal (applies to non-numeric re sults) [facility] URINE PROTEIN TRACE MG/DL NEGATIVE Normal (applies to non-numeric r esults) [facility] URINE GLUCOSE NORMAL MG/DL NORMAL Normal (applies to non-numeric results) [facility] URINE KETONES TRACE MG/DL NEGATIVE Normal (applies to non-numeric r esults) [facility] UR UROBILINOGEN NORMAL MG/DL Normal (applies to non-numeri c results) [facility] NORMAL URINE BILIRUBIN NEGATIVE MG/DL NEGATIVE Normal (applies to non- numeric results) [facility] URINE OCCULT BLD NEGATIVE NEGATIVE Normal (applies to non-numeric results) [facility] URINE MICROSCOPIC INDICATED Abnormal (applies to non-nume ramone results) [facility] URINE C-S REQUEST see below [facility] SPECIMEN SENT TO MICROBIOLOGY ID Date Data Source [id number] 06/29/2019 02:10:35 PM EDT Webb Tonja florez - [facility] EXAM:XR KNEE 3 VIEWS LEFT ORDERING [...] Thank you for referring your patient to [facility]. Name Value Range Interpretation Code Description Data Arianne rce(s) Supporting Document(s) ID Date Data Source [id number] 06/18/2019 08:11:00 PM EDT [facility] PROCEDURE: ABDOMEN, 2 VIEW X-RAY ORD#:[id number] DATE: 06/18/2019 19:02 ACC#: [id number]:PROCEDURE: ABDOMEN, 2 VIEW X-RAYDATE AND TIME: 06/18/2019 7:02 PM EDTHISTORY: *Pain. Constipation. Abdominal pain.COMPARISON: NoneTECHNIQUE: 3 frontal views of the abdomen.-IMPRESSION: Nonspecific, nonobstructive bowel gas pattern. No gross free air. Large amount of stool scattered within the colon and likely the rectum. Scattered air within the colon.Lung bases are clear. No abnormal calcifications. No acute osseous abnormality is identified.DWS: [id number] CUMULATIVE S RADIOLOGY FLUOROSCOPY TIME SINCE 07/30/2009: 0 sec (=0.00 min)EXAM DATE: 06/18/2019 19:02 ORDERED BY:JOSE MCKEE PACS IMAGES READ BY: AKYLA SCOTTIGNED 06/18/2019 20:09 BY KAYLA GODINEZ MD [facility] ACC#: [id number] Name Value Range Interpretation Code Description Data Arianne rce(s) Supporting Document(s) ID Date Data Source [id number] 05/26/2019 02:33:53 PM EDT Webb Tonja florez - [facility] BERKLEY LOPEZ LPATIENT IDENTIFICATION :[facility] BERKLEY LOPEZ LMedical Record Number: [id number] Of : 2000CHIEF COMPLAINT:patient here for c/o [...] strained her back. She has been lifting [id number] infant whois about 15 pounds. 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 Low grade fever UA is essentially negative and no urinary symptoms. Patient declined urineculture. No fever inclinic.Ordered:naproxen, 500 mg = 1 tab(s), PO (oral), bid, PRN Pain, # 30 tab(s),Maintenance, Pharmacy: [id number], 1 tab(s) PO (oral) bid,PRN:PainPOC Urine [...] EmergencyRoom or call 911.Thank you for choosing [facility]. We hope you are feeling [...] othersevere/emergent symptoms-go toER/call 911. With: DINORAH DOOLEYAddress: [facility] [address] [place] [id number]; This document was authenticated by Desiree Christina FNP CUSTOMER PRICING MANAGER on 05/26/201902:33 PM Name Value Range Interpretation Code Description Data Arianne rce(s) Supporting Document(s) ID Date Data Source [id number] 05/16/2019 07:37:05 PM EDT Webb Tonja florez - [facility] BERKLEY LOPEZ LPATIENT IDENTIFICATION :[facility] BERKLEY LOPEZ LMedical Record Number: [id number] Of : 2000CHIEF COMPLAINT:rm 1 c/o pain [...] 4 mg = 1 tab(s), PRN, SubLINGUAL, [id number] EXAM:VITALS:T: 36.9 C (Tympanic) T: 98.4 F [...] (04/27/19)COAGULATIOND-Dimer: 450 ng/mL FEU (04/27/19)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 Name Value Range Interpretation Code Description Data [facility] rce(s) Supporting Document(s) ID Date Data Source [id number] 05/13/2019 05:32:45 PM EDT Webb Tonja florez - [facility] LOPEZBERKLEY LHISTORY SOURCE:Patient , mother, nurse's [...] shortness of breath. [facility] not[facility] exposed to anyone [...] 4 mg = 1 tab(s), PRN, SubLINGUAL, [id number] ODT 4 mg oral tablet, disintegrating 4 [...] Virology LATEST RESULTS HISTORICALRESULTSInflu Spec Type 05/12/19 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 Swab 04/20/18NP Swab 14:17 Influenza A 05/12/19 [...] of each breast. OVERALL FINAL ASSESSMENTAssessment ACR [id number] 2: Benign Findings. RECOMMENDATIONNormal screening recommended according to [employer] guidelines. This document has been authenticated by Harrison Molina MD on 05/01/2019 9:10AM.Thank you for referring your patient to [facility]. Signed By: Jesse LINARES, Harrison [...] PM.Thank you for referring your patient to [facility]. Signed By: José Ma XR [...] Thank you for referring your patient to [facility]. Signed By: WILFREDO ALBRIGHT CT [...] PM.Thank you for referring your patient to [facility]. Signed By: Kit Lerma MD [...] PM.Thank you for referring your patient to [facility]. Signed By: Chidi Brody MD [...] Thank you for referring your patient to [facility]. Signed By: WILFREDO ALBRIGHTCARDIOLOGY RESULTS:No [...] rce(s) Supporting Document(s) ID Date Data Source [id number] 05/12/2019 02:39:15 PM EDT Webb Tonja rdes - [facility] Name Value Range Interpretation Code Description Data Arianne rce(s) Supporting Document(s) RSV Screen Negative Webb Krishna lorraine - [facility] Respiratory Syncytial Virus Screening is performed by Nucleic Acid Amplification Testing (NAAT). ID Date Data Source [id number] 05/12/2019 02:39:04 PM EDT Webb Tonja rdes - [facility] Name Value Range Interpretation Code Description Data Arianne rce(s) Supporting Document(s) Influenza A Negative Webb Tonja rddallin - [facility] Rapid Influenza testing performed by Nuc leic Acid Amplification Testing (NAAT) Influenza B Negative Webb Tonja rddallin - [facility] Influ Spec Type Webb Sarah - [facility] ID Date Data Source [id number] 05/12/2019 02:27:25 PM EDT Webb Tonja rddallin - [facility] Name Value Range Interpretation Code Description Data Arianne rce(s) Supporting Document(s) Rapid Grp A Neg Webb Sarah - [facility] Added on by Discern Audit Strep A Neg cmt Webb Sarah - [facility] ID Date Data Source [id number] 05/12/2019 02:27:25 PM EDT Webb Tonja rdes - [facility] Name Value Range Interpretation Code Description Data Arianne rce(s) Supporting Document(s) Rapid Grp A Strep, Throat Negative Webb Sarah - [facility] Rapid Group A Streptococcus Screen is pe rformed by Enzyme Immunoassay. ID Date Data Source [id number] 05/12/2019 01:42:04 PM EDT Webb Tonja florez - [facility] EXAM:US EXTREMITY VENOUS LOWER LEFTORDER ING [...] Thank you for referring your patient to [facility]. Name Value Range Interpretation Code Description Data Arianne rce(s) Supporting Document(s) ID Date Data Source [id number] 05/01/2019 09:12:48 AM EST Webb Tonja florez - [facility] EXAM: US BREAST BILATORDERING PROVIDER:Madhavi Montero [...] appearance of each breast.OVERALL FINAL ASSESSMENTAssessment ACR [id number] 2: Benign Findings.RECOMMENDATIONNormal screening recommended according to [employer] guidelines.This document has been authenticated by Harrison Molina MD on 05/01/2019 9:10AM. Thank you for referring your patient to [facility]. Name Value Range Interpretation Code Description Data Arianne rce(s) Supporting Document(s) ID Date Data Source [id number] 04/27/2019 05:09:56 PM EST Webb Tonja florez - [facility] BERKLEY LOPEZ [facility] [...] rce(s) Supporting Document(s) ID Date Data Source [id number] 04/27/2019 02:53:12 PM EST Webb Tonja rdes - [facility] EXAM:XR CHEST 2 VIEWSORDERING PROVIDER:Kathy MckennaCLINICAL HISTORY:Chest pain.COMPARISON STUDY:12/02/2018.TECHNIQUE:2 views.FINDINGS:The heart is normal in size. No focal pulmonary abnormality is identified.The bones and soft tissues are unremarkable.IMPRESSION: No evidence of acute pulmonary disease.This document has been authenticated by José Ma MD on 04/27/2019 2:51PM. Thank you for referring your patient to [facility]. Name Value Range Interpretation Code Description Data Arianne rce(s) Supporting Document(s) ID Date Data Source [id number] 04/27/2019 04:17:48 PM EST Webb Tonja rdes - [facility] Name Value Range Interpretation Code Description Data Arianne rce(s) Supporting Document(s) D-Dimer 450 ng/mL FEU <=499 [facility] * Diagnosis should not be based solely o n the results of this test.Results should be interpreted in conjunction with clinical findings.Negative Predictive Value for thromboembolism for D-Dimer test results below the cut off of 500 ng/ml FEU is 98%. ID Date Data Source [id number] 04/27/2019 02:39:21 PM EST Webb Tonja rdes - [facility] Name Value Range Interpretation Code Description Data Arianne rce(s) Supporting Document(s) Serum Qualitative Negative Webb [facility] ID Date Data Source [id number] 04/27/2019 02:26:23 PM EST Webb Tonja rdes - [facility] Name Value Range Interpretation Code Description Data Arianne rce(s) Supporting Document(s) GFR-KIEL >60 mL/min/1.73m2 >=60 [facility] eGFR added on by Discern Expert.* GFR-NA A has been calculated for Non- Americans, GFR-AA has been calculated for Americans. They are based on the standardized IDND creatinine value and do not include the [...] [facility] - [facility] ID Date Data Source [id number] 04/27/2019 02:26:22 PM EST Webb Tonja rdes - [facility] Name Value Range Interpretation Code Description Data Arianne rce(s) Supporting Document(s) Troponin-I <0.02 ng/mL <=0.04 Webb Tonja rdes - [facility] Normal: <0.04 ng/mLIschemic disease: 0.04-0.10 ng/mLConsistent with AMI: > 0.10 ng/mLPatients taking Biotin supplements in excess of the daily recommended allowance, may have falsely elevated results due to interference of Biotin in the assay measurement. ID Date Data Source [id number] 04/27/2019 02:26:21 PM EST Webb Tonja rdes - [facility] Name Value Range Interpretation Code Description Data Arianne rce(s) Supporting Document(s) Sodium Level 140 mmol/L 136-144 Webb Lo urdes - [facility] Potassium Level 3.9 mmol/L 3.6-5.1 Webb Sarah - [facility] Chloride 111 mmol/L 98-110 Above high normal [facility] CO2 20 mmol/L 22-32 Below low normal [facility] AGAP 9 mEq/L 4-14 Webb Lour lorraine - [facility] Glucose Level. 114 mg/dL 65-100 Above high normal [facility] Sarah - [facility] If patient is taking either of these dominguez gs, there has been a bias identified:Sulfasalazine may cause falsely decreased resultsSulfaspyridine may cause falsely increased results BUN 11 mg/dL 8-23 Webb Lour lorraine - [facility] Creatinine 0.67 mg/dL 0.40-1.10 Webb Lour lorraine - [facility] Calcium 9.2 mg/dL 8.5-10.5 Webb Lour lorraine - [facility] Total Protein 7.6 gm/dL 6.4-8.2 Webb L zee - [facility] Globulin 3.6 gm/dL 1.5-3.8 Webb Lour lorraine - [facility] Albumin Level 4.0 gm/dL 3.3-4.8 Webb L zee - [facility] Bilirubin Total. 0.1 mg/dL 0.2-1.0 Below low normal [facility] Sarah - [facility] AST 12 unit/L 15-41 Below low normal [facility] - [facility] If patient is taking either of these dominguez gs, there has been a bias identified:Sulfasalazine may cause falsely decreased resultsSulfaspyridine may cause falsely decreased results Alk Phos 88 unit/L 45-117 Webb Lour lorraine - [facility] ALT 28 unit/L 14-54 Webb Lour lorraine - [facility] If patient is taking either of these dominguez gs, there has been a bias identified:Sulfasalazine may cause falsely decreased resultsSulfaspyridine may cause falsely decreased results ID Date Data Source [id number] 04/27/2019 02:07:48 PM EST Webb Tonja rdes - [facility] Name Value Range Interpretation Code Description Data Arianne rce(s) Supporting Document(s) WBC 8.3 K/uL 4.0-10.0 Webb Lour lorraine - [facility] RBC 4.80 Million/mcL 4.20-5.40 [facility] - [facility] Hgb 13.3 gm/dL 12.0-16.0 Webb Lour lorraine - [facility] Hct 39.7 % 36.0-47.0 Webb Lour lorraine - [facility] MCV 82.7 fL 82.0-98.0 Webb Lour lorraine - [facility] MCH 27.8 pg 26.0-33.0 Webb Lour lorraine - [facility] MCHC 33.6 gm/dL 32.0-36.0 Webb Lour lorraine - [facility] RDW 13.8 % 11.4-14.4 Webb Lour lorraine - [facility] Platelet 314 K/mcL 150-400 Webb Lour lorraine - [facility] MPV 8.9 fL 7.4-10.4 Webb Lour lorraine - [facility] ID Date Data Source [id number] 04/27/2019 02:07:48 PM EST Webb Tonja rdes - [facility] Name Value Range Interpretation Code Description Data Arianne rce(s) Supporting Document(s) Neutrophils, auto 54.2 % 40.0-80.0 [facility] - [facility] Neutrophils, absolute 4.5 K/mcL 1.5-7.7 [facility] Sarah - [facility] Lymphocytes, auto 35.8 % 15.0-40.0 [facility] - [facility] Lymphocytes, absolute 3.0 K/mcL 1.5-4.0 Asc [facility] Sarah - [facility] Monocytes, auto 7.1 % 0.0-12.0 Webb Sarah - [facility] Monocytes, absolute 0.6 K/mcL 0.2-1.0 Asc[facility] Sarah - [facility] Eosinophils, auto 1.9 % 0.0-5.0 [facility] - [facility] Eosinophils, absolute 0.2 K/mcL 0.0-0.3 [facility] Sarah - [facility] Basophils, auto 1.0 % 0.0-2.0 Webb Sarah - [facility] Basophils, absolute 0.1 K/mcL 0.0-0.1 [facility] Sarah - [facility] ID Date Data Source [id number] 04/24/2019 10:34:40 AM EST Webb Tonja rdes - [facility] EXAM:XR KNEE 1 OR 2 VIEWS [...] Thank you for referring your [facility] to [facility]. Name Value Range Interpretation Code Description Data Arianne rce(s) Supporting Document(s) ID Date Data Source [id number] 04/10/2019 03:08:28 PM EST Webb Tonja rdes - [facility] BERKLEY LOPEZ is a pleasant pat [...] prepped with chlorhexidine 1%. Using ultrasound assistance, [id number] Tuohy epiduralneedle was inserted towards the adductor [...] rce(s) Supporting Document(s) ID Date Data Source [id number] 04/10/2019 03:02:28 PM EST Webb Tonja florez [facility] LREPORT OF OPERATION DA TE OF [...] limb was e xsanguinated with Esmarch andtourniquet yzfhtpad628 mmHg. I then began with a standard [...] DRAINS/PACKS:none This operative report was dictated using Ganipara software. Every attempt tocorrect verbalinaccuracies have been made.This document was authenticated by Salma Alvarado MD MD on04/10/2019 03:02 PM Name Value Range Interpretation Code Description Data Arianne rce(s) Supporting Document(s) ID Date Data Source [id number] 04/10/2019 02:41:43 PM EST Webb Tonja florez - [facility] EXAM:XR KNEE 1 OR 2 VIEWS LEFTORDERING P ROVIDER:MD Salma Alvarado MDCLINICAL HISTORY:Intraoperative fluoroscopy.COMPARISON STUDY:None.TECHNIQUE:4 images. 58 seconds of fluoroscopy.FINDINGS: Fluoroscopic documentation of procedure without radiologist present. Pleasesee the operative report.IMPRESSION: Intraoperative fluoroscopy This document has been authenticated by José Ma MD on 04/10/2019 2:39PM. Thank you for referring your patient to [facility]. Name Value Range Interpretation Code Description Data [facility] rce(s) Supporting Document(s) ID Date Data Source [id number] 04/10/2019 08:12:36 PM EST Webb Tonja florez - [facility] Name Value Range Interpretation Code Description Data [facility] rce(s) Supporting Document(s) Finger Stick Blood Sugar 95 mg/dL 65-100 Webb Sarah - [facility] The POC Glucose meter technical range is 30 - 550 mg/dLA glucose less than 30 mg/dLwill chart as CORBY glucose greater than 550 mg/dL will display as HI ID Date Data Source [id number] 04/03/2019 04:39:33 PM EST Webb Tonja florez - [facility] BERKLEY LOPEZ LHISTORY SOURCE:Patient and nurse's notes reviewedCHIEF COMPLAINT:Pt reports left lower abdominal pain, vomiting blood tinged fluids, and unableto urinate [id number] last night. Pt reports hx of urinary [...] 04/03/19 Clear 11/28/18Cloudy Abnormal 14:01 UA Specific [place] 04/03/19 1.027 High .029 High 14:01 UA [...] rce(s) Supporting Document(s) ID Date Data Source [id number] 04/03/2019 02:24:26 PM EST Webb Tonja florez - [facility] EXAM:Noncontrast CT of the abdomen and [...] Thank you for referring your patient to [facility]. Name Value Range Interpretation Code Description Data Arianne rce(s) Supporting Document(s) ID Date Data Source [id number] 04/05/2019 09:25:49 AM EST Webb Tonja rdes - [facility] Name BERKLEY LOPEZ hdailyn 2000Sex FEMALE Age 18 yearsPatient Acct. No. [id number] ER OLLAttending ER Physician Fabrice LINARES, [facility] DINORAH DOOLEYMicrobiologyS = Susceptible [...] Predominating PathogenPerforming Locationsf1: This test was performed at:[facility], [address] [place] [address], [facility]- Name Value Range Interpretation Code Description Data Arianne rce(s) Supporting Document(s) ID Date Data Source [id number] 04/03/2019 02:14:00 PM EST Webb Tonja rdes - [facility] Name Value Range Interpretation Code Description Data Arianne rce(s) Supporting Document(s) UA Squamous Epithelial Cells <2 /HPF 0-5 Webb Sarah - [facility] Added as per Lab reflex policy GL_UA_MIC RO_AV_R_UC UA WBC w/UC 2 /HPF 0-5 Webb Tonja rdes - [facility] UA RBC <2 /HPF 0-2 Webb Lour lorraine - [facility] UA Mucous Absent Webb Lour lorraine - [facility] ID Date Data Source [id number] 04/03/2019 02:07:51 PM EST Webb Tonja rdes - [facility] Name Value Range Interpretation Code Description Data Arianne rce(s) Supporting Document(s) UA Color Yellow Webb Lour lorraine - [facility] UA Clarity Clear Webb Lour lorraine - [facility] UA pH 5.0 5.0-8.0 Webb Lour lorraine - [facility] UA Specific [place] 1.027 1.005-1.025 Above high normal Webb Sarah - [facility] UA Leuk w/uc Negative AB Webb Lo urdes - [facility] UA Nitrite w/UC Negative Webb Sarah - [facility] UA Blood w/UC Negative Webb L ourdes - [facility] UA Bilirubin Negative Webb Lo urdes - [facility] If the dipstick bilirubin results are 'P resumptive Positive' the result will be confirmed with an Ictotest due to possible interference. UA Urobilinogen Normal Webb Sarah - [facility] UA Glucose Normal Webb Lour lorraine - [facility] UA Ketones Negative Webb Lour lorraine - [facility] UA Protein w/UC Negative Webb Sarah - [facility] UA Ascorbic Acid Negative [facility] Sarah - [facility] The presence of ascorbic acid may interf ere with the detection of blood, glucose, nitrite and bilirubin on the biochemical strip. Detectable limits of >20mg/dL will reflex a microscopic exam. ID Date Data Source [id number] 04/03/2019 01:48:27 PM EST Webb Tonja rdes - [facility] BERKLEY LOPEZ LChief Complaint: Patie nt [...] rce(s) Supporting Document(s) ID Date Data Source [id number] 04/03/2019 03:16:39 PM EST Webb Tonja rdes - [facility] Name Value Range Interpretation Code Description Data Arianne rce(s) Supporting Document(s) Lipase Level 103 unit/L 73-393 [facility] ID Date Data Source [id number] 04/03/2019 03:16:41 PM EST Webb Tonja rdes - [facility] Name Value Range Interpretation Code Description Data Arianne rce(s) Supporting Document(s) GFR-KIEL >60 mL/min/1.73m2 >=60 [facility] eGFR added on by Discern Expert.* [...] [facility] Sarah - [facility] ID Date Data Source [id number] 04/03/2019 03:16:39 PM EST Webb Tonja rdes - [facility] Name Value Range Interpretation Code Description Data Arianne rce(s) Supporting Document(s) C-Reactive Protein. 1.0 mg/dL <=1.0 Asc[facility] darren Sarah - [facility] ID Date Data Source [id number] 04/03/2019 03:16:39 PM EST Webb Tonja rdes - [facility] Name Value Range Interpretation Code Description Data Arianne rce(s) Supporting Document(s) Sodium Level 140 mmol/L 136-144 Webb Lo urdes - [facility] Potassium Level 3.7 mmol/L 3.6-5.1 Webb Sarah - [facility] Chloride 112 mmol/L 98-110 Above high normal [facility] - [facility] CO2 21 mmol/L 22-32 Below low normal [facility] Sarah - [facility] AGAP 7 mEq/L 4-14 Webb Lour lorraine - [facility] Glucose Level. 148 mg/dL 65-100 Above high normal [facility] Sarah - [facility] If patient is taking either of these dominguez gs, there has been a bias identified:Sulfasalazine may cause falsely decreased resultsSulfaspyridine may cause falsely increased results BUN 13 mg/dL 8-23 Webb Lour lorraine - [facility] Creatinine 0.67 mg/dL 0.40-1.10 Webb Lour lorraine - [facility] Calcium 9.4 mg/dL 8.5-10.5 Webb Lour lorraine - [facility] Total Protein 7.6 gm/dL 6.4-8.2 Webb L ourdes - [facility] Globulin 3.6 gm/dL 1.5-3.8 Webb Lour lorraine - [facility] Albumin Level 4.0 gm/dL 3.3-4.8 Webb L ourlorraine - [facility] Bilirubin Total. 0.3 mg/dL 0.2-1.0 [facility] Sarah - [facility] AST 13 unit/L 15-41 Below low normal [facility] Sarah - [facility] If patient is taking either of these dominguez gs, there has been a bias identified:Sulfasalazine may cause falsely decreased resultsSulfaspyridine may cause falsely decreased results Alk Phos 89 unit/L 45-117 Webb Christenur lorraine - [facility] ALT 32 unit/L 14-54 Webb Krishna lorraine - [facility] If patient is taking either of these dominguez gs, there has been a bias identified:Sulfasalazine may cause falsely decreased resultsSulfaspyridine may cause falsely decreased results ID Date Data Source [id number] 04/03/2019 01:23:25 PM EST Webb Tonja rdes - [facility] Name Value Range Interpretation Code Description Data Arianne rce(s) Supporting Document(s) Serum Qualitative Negative Webb Sarah - [facility] ID Date Data Source [id number] 04/03/2019 01:03:11 PM EST Webb Tonja rdes - [facility] Name Value Range Interpretation Code Description Data Arianne rce(s) Supporting Document(s) WBC 8.1 K/uL 4.0-10.0 Webb Lour lorraine - [facility] RBC 4.84 Million/mcL 4.20-5.40 [facility] Sarah - [facility] Hgb 13.3 gm/dL 12.0-16.0 Webb Lour lorraine - [facility] Hct 40.0 % 36.0-47.0 Webb Lour lorraine - [facility] MCV 82.7 fL 82.0-98.0 Webb Lour lorraine - [facility] MCH 27.4 pg 26.0-33.0 Webb Lour lorraine - [facility] MCHC 33.1 gm/dL 32.0-36.0 Webb Lour lorraine - [facility] RDW 14.1 % 11.4-14.4 Webb Lour lorraine - [facility] Platelet 302 K/mcL 150-400 Webb Lour lorraine - [facility] MPV 9.2 fL 7.4-10.4 Webb Lour lorraine - [facility] ID Date Data Source [id number] 04/03/2019 01:03:11 PM EST Webb Tonja rdes - [facility] Name Value Range Interpretation Code Description Data Arianne rce(s) Supporting Document(s) Neutrophils, auto 58.3 % 40.0-80.0 [facility] - [facility] Neutrophils, absolute 4.7 K/mcL 1.5-7.7 Asc ension Sarah - [facility] Lymphocytes, auto 34.4 % 15.0-40.0 [facility] - [facility] Lymphocytes, absolute 2.8 K/mcL 1.5-4.0 Asc ension Sarah - [facility] Monocytes, auto 5.3 % 0.0-12.0 Webb Sarah - [facility] Monocytes, absolute 0.4 K/mcL 0.2-1.0 Ascen darren Sarah - [facility] Eosinophils, auto 1.3 % 0.0-5.0 [facility] - [facility] Eosinophils, absolute 0.1 K/mcL 0.0-0.3 Asc ension Sarah - [facility] Basophils, auto 0.7 % 0.0-2.0 Webb Sarah - [facility] Basophils, absolute 0.1 K/mcL 0.0-0.1 Asc[facility] darren Sarah - [facility] ID Date Data Source [id number] 03/30/2019 04:42:08 PM EST Webb Tonja rdes - [facility] MARLEN LOPEZLEY LPATIENT IDENTIFICATION :[facility]Z LMedical Record Number: [id number] Of : 2000CHIEF COMPLAINT:rm 6 has been [...] (03/26/19)Protein Urine Dipstick POC Clinic: Negative (03/26/19)Specific [place] Dipstick POC Clinic: 1.030 (03/26/19)Urobilinogen Urine Dipstick [...] good understanding. *This note was completed using [employer] Dictation System. Reasonable attemptshave been made tocorrect [...] rce(s) Supporting Document(s) ID Date Data Source [id number] 03/28/2019 07:35:16 AM EST Webb Tonja florez - [facility] Name BERKLEY LOPEZ hdate 2000Sex FEMALE Age 18 yearsPatient Acct. No. [id number] LCB OLLAttending ER Physician Sandra Bowers FNPPrinoland hospital [facility] Care Physician DINORAH DOOLEYMicrobiologyS = Susceptible I [...] Predominating PathogenPerforming Locationsf1: This test was performed at:[facility], [address] [place] [address], [facility]- Name Value Range Interpretation Code Description Data Arianne rce(s) Supporting Document(s) ID Date Data Source [id number] 02/18/2019 05:02:53 PM EST Webb Tonja florez - [facility] SOURCE:History is from patient I reviewed the [...] well-nourished woman who appears her stated age. [id number].HEAD: Normocephalic/atraumatic.EYES: Pupils equal round reactive to light [...] rce(s) Supporting Document(s) ID Date Data Source [id number] 02/18/2019 12:31:16 PM EST Webb Tonja florez - [facility] EXAM:CT ABD/PELVIS W/IV ONLY CONTRAST OR [...] you for [facility] Name Value Range Interpretation Code Description Data Arianne rce(s) Supporting Document(s) ID Date Data Source [id number] 02/18/2019 11:09:02 AM EST Webb Tonja florez - [facility] EXAM: US PELVIS TRANSVAGINAL ONLY ORDERI [...] you for referring your [facility]. Name Value Range Interpretation Code Description Data Arianne rce(s) Supporting Document(s) ID Date Data Source [id number] 02/18/2019 10:47:32 AM EST Webb Tonja florez - [facility] Name Value Range Interpretation Code Description Data Arianne rce(s) Supporting Document(s) APTT 27 second(s) 24-33 Webb Christen holliday - [facility] Suggested therapeutic range for unfracti onated Heparin is 2 to 2.5 times the mean normal value. Levels below 60 seconds may indicate insufficient anticoagulant.For therapeutic monitoring of various direct thrombin inhibitors, please refer to Micromedex or LexiComp on the [facility]. ID Date Data Source [id number] 02/18/2019 11:07:49 AM EST Webb Tonja rdes - [facility] Name Value Range Interpretation Code Description Data Arianne rce(s) Supporting Document(s) Serum Qualitative Negative Webb Sarah - [facility] ID Date Data Source [id number] 02/18/2019 10:46:47 AM EST Webb Tonja rdes - [facility] Name Value Range Interpretation Code Description Data Arianne rce(s) Supporting Document(s) Lipase Level 96 unit/L 73-393 Webb Christen holliday - [facility] ID Date Data Source [id number] 02/18/2019 10:46:47 AM EST Webb Tonja rdes - [facility] Name Value Range Interpretation Code Description Data Arianne rce(s) Supporting Document(s) C-Reactive Protein. 3.3 mg/dL <=1.0 Above high normal Webb Sarah - [facility] ID Date Data Source [id number] 02/18/2019 10:46:48 AM EST Webb Tonja rdes - [facility] Name Value Range Interpretation Code Description Data Arianne rce(s) Supporting Document(s) GFR-KIEL >60 mL/min/1.73m2 >=60 [facility] eGFR added on by Discern Expert.* [...] [facility] Sarah - [facility] ID Date Data Source [id number] 02/18/2019 10:46:46 AM EST Webb Tonja rdes - [facility] Name Value Range Interpretation Code Description Data Arianne rce(s) Supporting Document(s) Sodium Level 140 mmol/L 136-144 Webb Lo urdes - [facility] Potassium Level 3.6 mmol/L 3.6-5.1 Webb Sarah - [facility] Chloride 112 mmol/L 98-110 Above high normal [facility] - [facility] CO2 24 mmol/L 22-32 Webb Lour lorraine - [facility] AGAP 4 mEq/L 4-14 Webb ur lorraine - [facility] Glucose Level. 91 mg/dL 65-100 Webb Sarah - [facility] If patient is taking either of these dominguez gs, there has been a bias identified:Sulfasalazine may cause falsely decreased resultsSulfaspyridine may cause falsely increased results BUN 15 mg/dL 8-23 Webb Lour lorraine - [facility] Creatinine 0.80 mg/dL 0.40-1.10 Webb Lour lorraine - [facility] Calcium 8.9 mg/dL 8.5-10.5 Webb ur lorraine - [facility] Total Protein 7.1 gm/dL 6.4-8.2 Webb L ourlorraine - [facility] Globulin 3.5 gm/dL 1.5-3.8 Webb Lozenon lorraine - [facility] Albumin Level 3.6 gm/dL 3.3-4.8 Webb L zee - [facility] Bilirubin Total. 0.4 mg/dL 0.2-1.0 [facility] Sarah - [facility] AST 11 unit/L 15-41 Below low normal [facility] Sarah - [facility] If patient is taking either of these dominguez gs, there has been a bias identified:Sulfasalazine may cause falsely decreased resultsSulfaspyridine may cause falsely decreased results Alk Phos 93 unit/L 45-117 Webb Krishna peters - [facility] ALT 47 unit/L 14-54 Webb Krishna peters - [facility] If patient is taking either of these dominguez gs, there has been a bias identified:Sulfasalazine may cause falsely decreased resultsSulfaspyridine may cause falsely decreased results ID Date Data Source [id number] 02/18/2019 10:46:46 AM EST Webb Tonja rdes - [facility] Name Value Range Interpretation Code Description Data Arianne rce(s) Supporting Document(s) Amylase Level 28 unit/L 28-100 Webb Jessica koch - [facility] ID Date Data Source [id number] 02/18/2019 10:17:55 AM EST Webb Tonja rdes - [facility] Name Value Range Interpretation Code Description Data Arianne rce(s) Supporting Document(s) WBC 6.6 K/uL 4.0-10.0 Webb Krishna peters - [facility] RBC 4.50 Million/mcL 4.20-5.40 [facility] Sarah - [facility] Hgb 12.4 gm/dL 12.0-16.0 Webb Lour lorraine - [facility] Hct 37.2 % 36.0-47.0 Webb Lour lorraine - [facility] MCV 82.6 fL 82.0-98.0 Webb Lour lorraine - [facility] MCH 27.5 pg 26.0-33.0 Webb Lour lorraine - [facility] MCHC 33.3 gm/dL 32.0-36.0 Webb Lour lorraine - [facility] RDW 13.7 % 11.4-14.4 Webb Lour lorraine - [facility] Platelet 272 K/mcL 150-400 Webb Lour lorraine - [facility] MPV 8.3 fL 7.4-10.4 Webb Lour lorraine - [facility] ID Date Data Source [id number] 02/18/2019 10:17:54 AM EST Webb Tonja rdes - [facility] Name Value Range Interpretation Code Description Data Arianne rce(s) Supporting Document(s) Neutrophils, auto 63.8 % 40.0-80.0 [facility] - [facility] Neutrophils, absolute 4.2 K/mcL 1.5-7.7 Asc ension Sarah - [facility] Lymphocytes, auto 23.6 % 15.0-40.0 [facility] - [facility] Lymphocytes, absolute 1.6 K/mcL 1.5-4.0 Asc ension Sarah - [facility] Monocytes, auto 10.9 % 0.0-12.0 Webb Sarah - [facility] Monocytes, absolute 0.7 K/mcL 0.2-1.0 Ascen darren Sarah - [facility] Eosinophils, auto 0.9 % 0.0-5.0 [facility] Sarah - [facility] Eosinophils, absolute 0.1 K/mcL 0.0-0.3 Asc ension Sarah - [facility] Basophils, auto 0.8 % 0.0-2.0 Webb Sarah - [facility] Basophils, absolute 0.1 K/mcL 0.0-0.1 Ascen darren Sarah - [facility] Procedure Social History Code Duration Value Status Description Data Source(s ) Alcohol intake 12/20/2019 12:00:00 AM EDT Current non-d chana of alcohol (finding) completed Current non-drinker of alcohol (finding) [facility] Tobacco use and exposure 12/20/2019 12:00:00 AM EDT Never used co mpleted Never used [facility] Smoking 12/20/2019 12:00:00 AM EDT Never smoker completed Never s [facility] 06/29/2019 12:00:00 AM EDT Patient is a current smoker, smokes every day completed Patient is a current smoker, smokes every day [facility] ( [facility]) ASSERTION 05/08/2019 12:00:00 AM EDT soda and coffee completed soda and coffee [facility] Vital Signs ID Date Data Source UNK Name Value Range Interpretation Code Description Data Source(s) Body weight Measured 240 lb 14 oz 240 lb 14 oz Webb Sarah - [facility] 2Result Comment: Result placed secondary from kg, converted to lbs Body height 66.0 [in_i] 66.0 [in_i] Webb L zee - [facility] 1Result Comment: Result placed secondary from cm, converted to Inches Deprecated Oxygen saturation in Capillary blood by Oximetry 98 % 90-100 Normal (applies to non-numeric results) 98 % Webb Sarah - [facility] Heart rate 100 /min 60-100 Normal (applies to non-numeric resul ts) 100 /min Webb Sarah - [facility] Systolic blood pressure 90-140 Normal (applies t o non-numeric results) mm[Hg] Webb Sarah - [facility] Body temperature 98.6 [degF] 97.9-99.7 Normal (applies to non-n umeric results) 98.6 [degF] Webb Sarah - [facility] Deprecated Oxygen saturation in Capillary blood by Oximetry 97 % 90-100 Normal (applies to non-numeric results) 97 % Webb Sarah - [facility] Respiratory rate 20 /min 14-20 Normal (applies to non-numeric results) 20 /min Webb Sarah - [facility] Heart rate 104 /min 60-100 Above high normal 104 /min [facility] Sarah - [facility] Systolic blood pressure 90-140 Normal (applies t o non-numeric results) mm[Hg] Webb Sarah - [facility] Body temperature 98.4 [degF] 97.9-99.7 Normal (applies to non-n umeric results) 98.4 [degF] Webb Sarah - [facility] Body weight Measured 244 lb 8 oz 244 lb 8 oz As cension Sarah - [facility] 2Result Comment: Result placed secondary from kg, converted to lbs Body height 66.0 [in_i] 66.0 [in_i] Webb L zee - [facility] 1Result Comment: Result placed secondary from cm, converted to Inches Deprecated Oxygen saturation in Capillary blood by Oximetry 97 % 90-100 Normal (applies to non-numeric results) 97 % Webb Sarah - [facility] Respiratory rate 20 /min 14-20 Normal (applies to non-numeric results) 20 /min Webb Sarah - [facility] Heart rate 104 /min 60-100 Above high normal 104 /min [facility] - [facility] Systolic blood pressure 90-140 Normal (applies t o non-numeric results) mm[Hg] Webb Sarah - [facility] Body temperature 98.4 [degF] 97.9-99.7 Normal (applies to non-n umeric results) 98.4 [degF] Webb Sarah - [facility] Body weight Measured 244 lb 8 oz 244 lb 8 oz As cension Sarah - [facility] 2Result Comment: Result placed secondary from kg, converted to lbs Body height 66.0 [in_i] 66.0 [in_i] Webb L zee - [facility] 1Result Comment: Result placed secondary from cm, converted to Inches Body mass index (BMI) [Ratio] 38.96 kg/meter(2) Overweight 38.96 kg/meter(2) [facility] Respiratory rate 18 /min 18 /min [facility] Body temperature 97.90 [degF] 97.90 [degF] Unit [facility] Heart rate 94 /min 94 /min [facility] Diastolic blood pressure 84 mm[Hg] 84 mm[Hg] [facility] Systolic blood pressure 138 mm[Hg] 138 mm[Hg] U [facility] Body weight Measured 241.41 [lb_av] 241.41 [lb_ av] [facility] Body height 66.00 [in_us] 66.00 [in_us] [facility] Body weight Measured 241 lb 7 oz 241 lb 7 oz As cension Sarah - [facility] 2Result Comment: Result placed secondary from kg, converted to lbs Body height 66.0 [in_i] 66.0 [in_i] Webb L zee - [facility] 1Result Comment: Result placed secondary from cm, converted to Inches Deprecated Oxygen saturation in Capillary blood by Oximetry 98 % 90-100 Normal (applies to non-numeric results) 98 % Webb Sarah - [facility] Respiratory rate 20 /min 14-20 Normal (applies to non-numeric results) 20 /min Webb Sarah - [facility] Heart rate 97 /min 60-100 Normal (applies to non-numeric resul ts) 97 /min Webb Sarah - [facility] Systolic blood pressure 90-140 Normal (applies t o non-numeric results) mm[Hg] Webb Sarah - [facility] Body temperature 98.1 [degF] 97.9-99.7 Normal (applies to non-n umeric results) 98.1 [degF] Webb Sarah - [facility] Body weight Measured 241 lb 7 oz 241 lb 7 oz As cension Sarah - [facility] 2Result Comment: Result placed secondary from kg, converted to lbs Body height 66.0 [in_i] 66.0 [in_i] Webb L zee - [facility] 1Result Comment: Result placed secondary from cm, converted to Inches Deprecated Oxygen saturation in Capillary blood by Oximetry 98 % 90-100 Normal (applies to non-numeric results) 98 % Webb Sarah - [facility] Respiratory rate 20 /min 14-20 Normal (applies to non-numeric results) 20 /min Webb Sarah - [facility] Heart rate 97 /min 60-100 Normal (applies to non-numeric resul ts) 97 /min Webb Sarah - [facility] Systolic blood pressure 90-140 Normal (applies t o non-numeric results) mm[Hg] Webb Sarah - [facility] [facility] Body temperature 98.1 [degF] 97.9-99.7 Normal (applies to non-n umeric results) 98.1 [degF] [facility] - [facility] Patient Treatment Plan of Care Planned Activity Planned Date Details Description Data Source (s) Flonase Allergy Relief 50 mcg/actuation nasal spray,dickinson spension 06/08/2016 12:00:00 AM EDT [facility] Previfem 0.25 mg-35 mcg tablet [facility] Lactobacillus rhamnosus GG [id number] UNT Oral Capsule [facility] trazodone 50 mg tablet [facility] Hyoscyamine Sulfate 0.125 MG/ML Oral Solution [facility] Briellyn 0.4 mg-35 mcg tablet [facility] Clonazepam 1 MG Oral Tablet [facility] methylphenidate ER 50 mg multiphase capsule 30-70,extended release [facility] Metformin hydrochloride 500 MG Oral Tablet [facility]
[2020-03-19 19:06] LABS: ALBUMIN 4.1 GM/DL (3.2-5.2); ALT/SGPT 30 U/L (12-78); BILIRUBIN,DIRECT < 0.1 MG/DL (0.0-0.2); BILIRUBIN,TOTAL 0.2 MG/DL (0.2-1.0); BLOOD UREA NITROGEN 12 MG/DL (7-18); CALCIUM LEVEL 9.3 MG/DL (8.5-10.1); CARBON DIOXIDE LEVEL 27 MEQ/L (21-32); CHLORIDE LEVEL 110 MEQ/L (98-107); CREATININE FOR GFR 0.87 MG/DL (0.55-1.30); GLUCOSE, FASTING 98 MG/DL (70-100); LIPASE 133 U/L (73-393); POTASSIUM SERUM 4.2 MEQ/L (3.5-5.1); SODIUM LEVEL 143 MEQ/L (136-145); TOTAL PROTEIN 7.2 GM/DL (6.4-8.2)
[2020-03-19 19:10] LABS: HCG, SERUM QUALITATIVE NEGATIVE (NEGATIVE)
[2020-03-19 21:02] VITALS: BP 139/86
== END 2020-03-19 21:03 | disposition home or self-care (01) ==
LOC: M ED 17:31
DX: R33.9 Retention of urine, unspecified (principal); Z88.0 Allergy status to penicillin; Z79.899 Other long term (current) drug therapy

== ENCOUNTER 2020-03-20 22:33 | Emergency (ER) | payer OTHER ==
[~2020-03-20] VITALS: Ht 167.6 cm; Wt 105.0 kg
[~2020-03-20 22:33] MED LIST changes: +IRON27TA2 PO
--- OUTSIDE RECORDS SUMMARY | 2020-03-20 22:39 | CCD ---
Author Author [facility] Organization [facility] Address Unknown Phone Unavailable Care Team Providers Care Insurance Operations Rep Name Role Phone CAM PRINCE MD Unavailable [...] Unavailable GINZBURG, CAM MD Unavailable Unavailable GINZBURG, CMA MD Unavailable Unavailable GINZBURG, CAM MD Unavailable Unavailable GINZBURG, CAM MD Unavailable Unavailable GINZBURG, CAM MD Unavailable Unavailable GINZBURG, CAM MD Unavailable Unavailable GINZBURG, CAM MD Unavailable Unavailable GINZBURG, CAM MD Unavailable Unavailable VAN GORDER, T SALMA Unavailable Unavailable VAN GORDER, T SALMA Unavailable Unavailable VAN GORDER, T SALMA Unavailable Unavailable VAN GORDER, T SALMA Unavailable Unavailable Rigoberto-Lisa, A Nilton DO Unavailable Unavailable Rigoberto-Lisa, A Nilton DO Unavailable Unavailable Rigoberto-Lisa, A Nilton DO Unavailable Unavailable Rigoberto-Lisa, A Nilton DO Unavailable Unavailable Rigoberto-Lisa, A Nilton DO Unavailable Unavailable Rigoberto-Lisa, A Nilton DO Unavailable Unavailable XANDER, HALEY Unavailable Unavailable Kathy WIN Unavailable Unavailable Theron DOBSON Unavailable Unavailable Kathy GONZALEZ Unavailable Unavailable Tere Mckenna MD Unavailable Unavailable Tere Mckenna MD Unavailable Unavailable Tere Mckenna MD Unavailable Unavailable CROWDER, ANANYA DO Unavailable Unavailable CROWDER, ANANYA DO Unavailable Unavailable CROWDER, ANANYA DO Unavailable Unavailable CROWDER, ANANYA DO Unavailable Unavailable CROWDER, ANANYA DO Unavailable Unavailable Provider Pending, [facility] Shamar Combs MD Unavailable Un available Toñito Avina MD Unavailable Unavailable Toñito Avina MD Unavailable Unavailable TAHIRA NEAL Unavailable Unavailable Test, Provider Unavailable Unavailable DESEAN LINARES, Physician Maryann ORTIZ Unavailable Unavailable JIGNESH ELLIS MD Unavailable Unavailable JIGNESH ELLIS MD Unavailable Unavailable Sanford, Desiree DIRECTOR TRANSLATION Unavailable Unavailable Sanford, Desiree DIRECTOR TRANSLATION Unavailable Unavailable Sanford, Desiree DIRECTOR TRANSLATION Unavailable Unavailable Sanford, Desiree DIRECTOR TRANSLATION Unavailable Unavailable Sanford, Desiree DIRECTOR TRANSLATION Unavailable Unavailable NON, PHYSICIAN STAFF Unavailable Unavailable [...] Unavailable Juarez, W Best Unavailable Unavailable MEDENT_[id number], [id number] Unavailable MEDENT_8436, [id number] Unavailable MEDENT_8436, [id number] Unavailable MEDENT_8436, [id number] Unavailable MEDENT_8436, [id number] Unavailable MEDENT_8436, [id number] Unavailable MEDENT_8436, [id number] Unavailable MEDENT_8436, [id number] Unavailable MEDENT_8436, [id number] Unavailable Theron Fuller MD Unavailable Unavailable Theron [...] is protected by Article 27-F of the [facility] Public Health law. If you continue you may have access to information: Regarding HIV / AIDS; Provided by facilities licensed or operated by the [facility] Office of Mental Health; or Provided by the [facility] Office for People With Developmental Disabilities. If such information is present, then the following [facility] mandated warning applies: This information has [...] law may result in a fine or [place] health care facility sentence or both. A general authorization for the release of medical or other information is NOT sufficient authorization for further disc losure. Family History Family Member Name Family Member Gender Family Member Status Date o f Status Description Data Source(s) Unknown Male Diagnosis 11/07/2014 12:00:00 AM EDT [facility] Encounters Encounter Providers Location Date Indications Data Source(s ) Unknown [id number] [facility] [address] 03/14/2020 12:00:00 AM [place] [address] ([facility]) Outpatient Attender: CAM PRINCE MD 02/21/2020 12:00: 00 AM [facility] Outpatient Attender: CAM PRINCE MD [id number] 12:00:00 AM EDT - 12/20/2019 03:38:04 PM EDT [facility] Emergency Attender: RONDA GARCIAConsultant: STAFF NON 11/07/2019 11:33:00 PM EDT - 11/08/2019 01:19:00 AM EDT [facility] Patient discharged. Outpatient 07/20/2019 06:39:00 PM EDT [facility] Outpatient Attender: REBEKAH CHAUHAN MD MDAdmitt er: REBEKAH CHAUHAN MD, MD [facility] 07/18/2019 10:30:00 AM EDT TELEPHONE discuss surgery [facility] TELEPHONE discuss surgery [facility] ENT/Facial Plastic Surgery 0 07/18/2019 10:30:00 AM EDT - 07/18/2019 10:30:00 AM EDT Proc/trtmt not carried out because of contraindication [facility] Proc/trtmt not carried out because of co ntraindication P Attender: SALMA CARRASCOdmitter: SALMA ALVARADO MATTHIAS-MATTHIAS 07/11/2019 10:42:[address] [facility] P Attender: LISA DOBSONAdmitter: LISA DOBSON MATTHIAS-MATTHIAS 2019 03:14:[address] [facility] Outpatient Attender: LISA DOBSONAdmitter: LISA DOBSON MATTHIAS-MATTHIAS 06/29/2019 01:18:00 PM EDT - 06/29/2019 01:18:[address] [facility] [place] [facility] Patient discharged. Outpatient Attender: Wali Temple MDAdmitter: Wali casanova MD [facility] 06/18/2019 06:16:00 PM EDT - 06/18/2019 08:15:00 PM EDT [facility] Patient discharged. Outpatient Attender: SALMA CARRASCOdmitter: SALMA ALVARADO OUT-OUT 05/31/2019 12:01:00 AM EDT - 06/29/2019 11:59:[address] [facility] [place] [facility] Patient discharged. P Attender: SALMA CARRASCOdmitter: SALMA ALVARADO MATTHIAS-MATTHIAS 05/30/2019 08:44:[address] [facility] [place] [facility] Outpatient Attender: SALMA CARRASCOdmitter: SALMA ALVARADO MATTHIAS-MATTHIAS 05/30/2019 08:29:00 AM EDT - 05/30/2019 08:29:[address] [facility] [place] [facility] Patient discharged. P Attender: Desiree CHERRY PAttender: Provider TestAdmitter: Desiree HERNANDEZ LCB-LCB 05/26/2019 01:33:00 PM EDT [facility] [place] [facility] Outpatient Attender: HALEY ZAYASAdmitter: HALEY SERRANO LCB-LCB 05/16/2019 05:58:00 PM EDT - 05/16/2019 05:58:[address] [place] [facility] Patient discharged. Outpatient Attender: HALEY FRIEDMAN ttender: Provider TestAdmitter: HALEY ZAYAS LCB-LCB 05/16/2019 05:23:00 PM EDT - 05/16/2019 05:58:[address] [facility] Emergency Attender: Nilton moura DOAdmitter: Nilton Corbinerrer: Dinorah Dooley MD M/S-M/S 05/12/2019 02:05:00 PM EDT - 05/12/2019 03:05:[address] [facility] Patient discharged. Emergency Attender: Nilton moura DOAdmitter: Nilton Corbinerrsatnam: Dinorah Dooley MD ANC-ER 05/12/2019 02:05:[address] [facility] Outpatient Attender: TAHIRA BELLA PAAdmitter: TAHIRA BELLA PA MATTHIAS-MATTHIAS 05/12/2019 12:53:00 PM EDT - 05/12/2019 12:53:[address] [facility] Patient discharged. Outpatient Attender: Best Verma r: [facility] Shamar Br Provider Pending MDAdmitter: Best Juarez [facility] 05/08/2019 11:02:00 AM EDT [facility] OutpatientOffice/outpatient visit,est, mod [facility] 05/08/2019 11:02:00 AM EDT - 05/08/2019 11:02:00 AM EDT Intractable migraine without status migrainosus, unspecified migraine type [facility] Intractable migraine without status migr ainosus, unspecified migraine type Outpatient Attender: MADHAVI GUAJARDOdmitter: MADHAVI WIN ANC -BCC 05/01/2019 08:27:00 AM EST - 05/01/2019 08:27:[address] [facility] Patient discharged. Outpatient Attender: SALMA CARRASCOdmitter: SALMA ALVARADO OUT-OUT 2019 12:01:00 AM EST - 05/30/2019 11:59:[address] [facility] Patient discharged. Emergency Attender: Teddy Kurtz nder: Nilton Willson DOAdmitter: Teddy Mckenna MDReferrer: Dinorah Dooley MD M/S-M/S 04/27/2019 01:15:00 PM EST - 04/27/2019 05:18:[address] [facility] Patient discharged. Emergency Attender: Nilton Willson DOAdmitter : Nilton Willson DO ANC-ER 04/27/2019 01:15:[address] [facility] Outpatient Attender: SALMA Thomas: SALMA ALVARADO OUT-OUT 04/26/2019 02:59:00 PM EST - 04/27/2019 09:13:[address] [facility] Patient discharged. Outpatient Attender: SALMA Bethitter: SALMA ALVARADO OUT-OUT 04/25/2019 09:15:00 AM EST - 04/29/2019 11:59:[address] [facility] Patient discharged. Outpatient Attender: TAHIRA Buenoitter: TAHIRA HOFFMANN MATTHIAS-MATTHIAS 04/24/2019 10:16:00 AM EST - 04/24/2019 10:16:[address] [facility] Patient discharged. P Attender: TAHIRA BELLA PAAvivianitter: TAHIRA HOFFMANN MATTHIAS-MATTHIAS 04/24/2019 09:00:[address] [facility] P Attender: SALMA Thomas: SALMA AGUILAR-MATTHIAS 04/19/2019 09:00:[address] [facility] Outpatient Attender: SALMA Bethitter: SALMA AGUILAR-MATTHIAS 04/10/2019 07:46:00 AM EST - 04/10/2019 09:28:[address] [facility] Patient discharged. Outpatient Attender: SALMA Bethitter: SALMA ALVARADO ANC-NICKOLAS 04/10/2019 05:00:00 AM EST - 04/10/2019 07:00:[address] [facility] Patient discharged. Outpatient Attender: SALMA CARRASCO dmitter: SALMA Alemanultant: Physician DIANA ANTON MD ANC-N[facility]OL[facility] 04/10/2019 05:00:00 AM EST - 04/10/2019 07:00:[address] [facility] P Attender: SALMA Bethitter: SALMA ALVARADO ANC-NICKOLAS 04/10/2019 04:00:[address] [facility] P Attender: SALMA Bethitter: SALMA ALVARADO PAT-PAT 04/05/2019 04:00:[address] [facility] P Attender: SALMA Bethitter: SALMA ALVARADO MATTHIAS-MATTHIAS 04/04/2019 01:50:[address] [facility] Outpatient Attender: [id number] 04/04/2019 11:45:00 AM EST [facility] ([facility] ) Outpatient Attender: SALMA Bethitter: SALMA ALVARADO MATTHIAS-MATTHIAS 04/04/2019 09:52:00 AM EST - 04/04/2019 09:52:[address] [facility] Patient discharged. Emergency Attender: Toñito Hernandez ter: Toñito Avina MDReferrer: Dinorah Dooley MD M/S-M/S 04/03/2019 12:15:00 PM EST - 04/03/2019 05:20:[address] [facility] Patient discharged. Emergency Attender: Toñito Hernandez ter: Toñito Avina MDReferrer: Dinorah Dooley MD ANC-ER 04/03/2019 12:15:00 PM EST - 04/03/2019 05:20:[address] [facility] P Attender: MADHAVI GUAJARDOdmitter: MADHAVI WIN ANC -BCC 03/28/2019 04:00:[address] [facility] Outpatient Attender: Provider TestAdmitter: Provider Test L -B 03/26/2019 11:11:00 AM EST - 03/26/2019 12:11:[address] [facility] Patient discharged. Outpatient Attender: ZEE GONZALEZAttender: Provider TestAdmitter: ZEE ARELLANOB-B 03/26/2019 10:11:00 AM EST - 03/26/2019 12:11:[address] [facility] Outpatient Attender: ZEE Morinender: Provider TestAdmitter: ZEE ARELLANOB-B 03/26/2019 10:11:00 AM EST - 03/27/2019 11:59:[address] [facility] Emergency Attender: Atilio Fuller MDAdmitter: Atilio stahl MD M/S-M/S 02/18/2019 09:11:00 AM EST - 02/18/2019 02:08:[address] [facility] Patient discharged. Emergency Attender: Atilio Fuller MDAdmitter: Atilio stahl MD ANC-ER 02/18/2019 09:11:[address] [facility] Outpatient [facility] 01/27/2019 02:52:00 PM EST - 019 12:00:00 AM EDT [facility] Patient discharged. [facility] [employer] [facility] Evelina 1 03/29/2018 02:48:00 PM EST - 01/27/2019 02:48:00 PM EST [facility] Emergency Attender: ANANYA OMALLEY ttender: Nilton Willson DOAdmitter: ANANYA CROWDER DOReferrer: Dinorah Dooley MD M/S-M/S 12/03/19 02:43:00 PM EDT - 12/02/2018 07:06:[address] [facility] Patient discharged. Emergency Attender: JIGNESH ELLIS MDAt tender: Atilio Fuller MDAdmitter: JIGNESH CALEB MDReferrer: Dinorah Dooley MD M/S-M/S 11/28/2018 01:55 :00 PM EDT - 11/28/2018 06:46:[address] [facility] [place] [facility] Patient discharged. Medications Medication Brand Name Start Date Product Form Dose Route Admi nistrative Instructions Pharmacy Instructions Status Indications Reaction Description Data Source(s) Diclofenac Sodium 50 MG Delayed Release Oral Tablet Diclofen ac Sodium 06/29/2019 12:00:00 AM EDT ORAL active M [facility] ([facility]) naproxen 500 mg oral tablet 05/26/2019 02:15:00 PM EDT 5 00.0 By Mouth completed 500 mg = 1 tab(s), P O (oral), bid, PRN Pain, # 30 tab(s), Maintenance, Pharmacy: [id number], 1 tab(s) PO (oral) bid,PRN:Pain [facility] naproxen 500 mg oral tablet 05/26/2019 02:15:00 PM EDT 5 00.0 By Mouth completed 500 mg = 1 tab(s), P O (oral), bid, PRN Pain, # 30 tab(s), Maintenance, Pharmacy: [id number], 1 tab(s) PO (oral) bid,PRN:Pain [facility] naproxen 500 mg oral tablet 05/26/2019 02:15:00 PM EDT 5 00.0 By Mouth completed 500 mg = 1 tab(s), P O (oral), bid, PRN Pain, # 30 tab(s), Maintenance, Pharmacy: [id number], 1 tab(s) PO (oral) bid,PRN:Pain [facility] naproxen 500 mg oral tablet 05/26/2019 02:15:00 PM EDT 5 00.0 By Mouth completed 500 mg = 1 tab(s), P O (oral), bid, PRN Pain, # 30 tab(s), Maintenance, Pharmacy: [id number], 1 tab(s) PO (oral) bid,PRN:Pain [facility] Zofran 4 mg oral tablet 05/12/2019 02:44:00 PM EDT 4.0 Under your Tongue completed 4 mg = 1 tab(s), SubLINGUAL, q6hr, PRN for Nausea or Vomiting, # 9 tab(s), 0 Refill(s), Maintenance, Pharmacy: [id number], 1 tab(s) SubLINGUAL q6hr,x3 day(s),PRN:for Nausea or Vomiting [facility] Zofran 4 mg oral tablet 05/12/2019 02:44:00 PM EDT 4.0 Under your Tongue completed 4 mg = 1 tab(s), SubLINGUAL, q6hr, PRN for Nausea or Vomiting, # 9 tab(s), 0 Refill(s), Maintenance, Pharmacy: [id number], 1 tab(s) SubLINGUAL q6hr,x3 day(s),PRN:for Nausea or Vomiting [facility] Zofran 4 mg oral tablet 05/12/2019 02:44:00 PM EDT 4.0 Under your Tongue completed 4 mg = 1 tab(s), SubLINGUAL, q6hr, PRN for Nausea or Vomiting, # 9 tab(s), 0 Refill(s), Maintenance, Pharmacy: [id number], 1 tab(s) SubLINGUAL q6hr,x3 day(s),PRN:for Nausea or Vomiting [facility] Zofran 4 mg oral tablet 05/12/2019 02:44:00 PM EDT 4.0 Under your Tongue completed 4 mg = 1 tab(s), SubLINGUAL, q6hr, PRN for Nausea or Vomiting, # 9 tab(s), 0 Refill(s), Maintenance, Pharmacy: [id number], 1 tab(s) SubLINGUAL q6hr,x3 day(s),PRN:for Nausea or Vomiting [facility] Zofran 4 mg oral tablet 05/12/2019 02:44:00 PM EDT 4.0 Under your Tongue completed 4 mg = 1 tab(s), SubLINGUAL, q6hr, PRN for Nausea or Vomiting, # 9 tab(s), 0 Refill(s), Maintenance, Pharmacy: [id number], 1 tab(s) SubLINGUAL q6hr,x3 day(s),PRN:for Nausea or Vomiting [facility] Zofran ODT 4 mg oral tablet, disintegrating 04/27/2019 05: 08:00 PM EST 4.0 By Mouth completed 4 mg = 1 tab(s ), PO (oral), tid, PRN Nausea, # 9 tab(s), Maintenance, Pharmacy: [id number], 1 tab(s) PO (oral) tid,PRN:Nausea [facility] [place] [facility] Zofran ODT 4 mg oral tablet, disintegrating 04/27/2019 05: 08:00 PM EST 4.0 By Mouth completed 4 mg = 1 tab(s ), PO (oral), tid, PRN Nausea, # 9 tab(s), Maintenance, Pharmacy: [id number], 1 tab(s) PO (oral) tid,PRN:Nausea [facility] Zofran ODT 4 mg oral tablet, disintegrating 04/27/2019 05: 08:00 PM EST 4.0 By Mouth completed 4 mg = 1 tab(s ), PO (oral), tid, PRN Nausea, # 9 tab(s), Maintenance, [facility]: [id number], 1 tab(s) PO (oral) tid,PRN:[facility]ausea [facility] Zofran ODT 4 mg oral tablet, disintegrating 04/27/2019 05: 08:00 PM EST 4.0 By Mouth completed 4 mg = 1 tab(s ), PO (oral), tid, PRN Nausea, # 9 tab(s), Maintenance, Pharmacy: [id number], 1 tab(s) PO (oral) tid,PRN:Nausea [facility] Zofran ODT 4 mg oral tablet, disintegrating 04/27/2019 05: 08:00 PM EST 4.0 By Mouth completed 4 mg = 1 tab(s ), PO (oral), tid, PRN Nausea, # 9 tab(s), Maintenance, Pharmacy: [id number], 1 tab(s) PO (oral) tid,PRN:Nausea [facility] [place] Zofran ODT 4 mg oral tablet, disintegrating 04/27/2019 05: 08:00 PM EST 4.0 By Mouth completed 4 mg = 1 tab(s ), PO (oral), tid, PRN Nausea, # 9 tab(s), Maintenance, Pharmacy: [id number], 1 tab(s) PO (oral) tid,PRN:Nausea [facility] [place] [facility] Omeprazole omeprazole 40 mg oral delayed release capsu le omeprazole 40 mg oral delayed release capsule 04/27/2019 05:00:00 PM EST 40.0 By Mouth completed 40 mg = 1 cap(s), PO (oral), qDay, # 90 cap(s), Maintenance, Pharmacy: [id number], 1 cap(s) PO (oral) qDay [facility] [place] Omeprazole omeprazole 40 mg oral delayed release capsu le omeprazole 40 mg oral delayed release capsule 04/27/2019 05:00:00 PM EST 40.0 By Mouth completed 40 mg = 1 cap(s), PO (oral), qDay, # 90 cap(s), Maintenance, Pharmacy: [id number], 1 cap(s) PO (oral) qDay [facility] Omeprazole omeprazole 40 mg oral delayed release capsu le omeprazole 40 mg oral delayed release capsule 04/27/2019 05:00:00 PM EST 40.0 By Mouth completed 40 mg = 1 cap(s), PO (oral), qDay, # 90 cap(s), Maintenance, Pharmacy: [id number], 1 cap(s) PO (oral) qDay [facility] Omeprazole omeprazole 40 mg oral delayed release capsu le omeprazole 40 mg oral delayed release capsule 04/27/2019 05:00:00 PM EST 40.0 By Mouth completed 40 mg = 1 cap(s), PO (oral), qDay, # 90 cap(s), Maintenance, [id number], 1 cap(s) PO (oral) qDay [facility] Omeprazole omeprazole 40 mg oral delayed release capsu le omeprazole 40 mg oral delayed release capsule 04/27/2019 05:00:00 PM EST 40.0 By Mouth completed 40 mg = 1 cap(s), PO (oral), qDay, # 90 cap(s), Maintenance, [id number], 1 cap(s) PO (oral) qDay [facility] Omeprazole omeprazole 40 mg oral delayed release capsu le omeprazole 40 mg oral delayed release capsule 04/27/2019 05:00:00 PM EST 40.0 By Mouth completed 40 mg = 1 cap(s), PO (oral), qDay, # 90 cap(s), Maintenance, Pharmacy: [id number], 1 cap(s) PO (oral) qDay [facility] medroxyPROGESTERone 150 mg/mL intramuscular suspension 04/27/2019 04:13:00 PM EST 150.0 IntraMUSCULAR completed 150 mg =, IM, Maintenance [facility] Morphine Sulfate 15 MG Oral Tablet Morphine Sulfate 04/11/2019 1 2:00:00 AM EST ORAL completed [facility] ([facility]) acetaminophen-oxyCODONE 325 mg-5 mg oral tablet 2019 12:18:00 PM EST 1.0 By Mouth completed 1 tab(s), PO (oral), q4h, PRN Moderate Pain (4- 6), # 20 tab(s), 0 Refill(s), Maintenance, Pharmacy: [id number], 1 tab(s) PO (oral) q4h,PRN:Moderate Pain (4-6) [facility] CeleBREX 100 mg oral capsule 04/10/2019 12:17:00 PM EST 100.0 By Mouth completed 100 mg = 1 cap(s), P O (oral), bid, # 60 cap(s), Maintenance, Pharmacy: [id number], 1 cap(s) PO (oral) bid [facility] docusate sodium 100 mg oral tablet 04/10/2019 12:16:00 PM EST 100.0 By Mouth completed 100 mg =, PO ( oral), qDay, # 5 tab(s), Maintenance, Pharmacy: [id number], 100 mg PO (oral) qDay [facility] cephalexin 500 mg oral capsule 04/10/2019 12:16:00 PM EST 500.0 By Mouth completed 500 mg = 1 cap(s ), PO (oral), q6hr, # 12 cap(s), Maintenance, Pharmacy: [id number], 1 cap(s) PO (oral) q6hr [facility] Zofran ODT 4 mg oral tablet, disintegrating 04/10/2019 12: 16:00 PM EST Under your Tongue completed 1 to 2 tab(s), SubLINGUAL, q8h, PRN for nausea or vomiting, # 4 tab(s), Maintenance, [facility]: [id number], 1 to 2 tab(s) SubLINGUAL q8h,PRN:for nausea or vomiting [facility] aspirin 325 mg oral delayed release tablet 04/10/2019 12:1 6:00 PM EST 325.0 By Mouth completed 325 mg = 1 tab (s), PO (oral), qDay, # 14 tab(s), Maintenance, Pharmacy: [id number], 1 tab(s) PO (oral) qDay [facility] Zofran ODT 4 mg oral tablet, disintegrating 04/03/2019 04: 37:30 PM EST Under your Tongue completed 1 to 2 tab(s), SubLINGUAL, q8h, PRN for nausea or vomiting, # 4 tab(s), Maintenance, Pharmacy: [id number], 1 to 2 tab(s) SubLINGUAL q8h,PRN:for nausea or vomiting [facility] Macrobid 100 mg oral capsule 03/26/2019 11:05:15 AM EST 100.0 By Mouth completed 100 mg = 1 cap(s), P O (oral), bid, # 10 cap(s), Maintenance, Pharmacy: [id number], 1 cap(s) PO (oral) bid,x5 day(s) [facility] Macrobid 100 mg oral capsule 03/26/2019 11:05:15 AM EST 100.0 By Mouth completed 100 mg = 1 cap(s), P O (oral), bid, # 10 cap(s), Maintenance, Pharmacy: [id number], 1 cap(s) PO (oral) bid,x5 day(s) [facility] Voltaren 75 mg oral enteric coated tablet 02/18/2019 01:51 :38 PM EST 75.0 By Mouth completed 75 mg = 1 tab( s), PO (oral), bid, # 20 tab(s), Maintenance, Pharmacy: [id number], 1 tab(s) PO (oral) bid [facility] Voltaren 75 mg oral enteric coated tablet 02/18/2019 01:51 :38 PM EST 75.0 By Mouth completed 75 mg = 1 tab( s), PO (oral), bid, # 20 tab(s), Maintenance, Pharmacy: [id number], 1 tab(s) PO (oral) bid [facility] Flonase Allergy Relief 50 mcg/actuation nasal spray,dickinson spension Fluticasone propionate 0.05 MG/ACTUAT Metered Dose Nasal [place] 06/08/2016 12:00:00 AM EDT NASAL completed Fluticason e propionate 0.05 MG/ACTUAT Metered Dose Nasal [place] [Flonase] [facility] trazodone 50 mg tablet trazodone HCl TABLET 1.00 tablet ORAL completed take 1 tablet by oral route every day at bedtime [facility] Hyoscyamine Sulfate 0.125 MG/ML Oral Nat ution HYOSCYAMINE SULFATE (unknown strength) HYOSCYAMINE SULFATE (unknown strength) ORAL completed take 1 milliliter by oral route every 4 hours as needed [facility] Previfem 0.25 mg-35 mcg tablet {21 (Ethinyl Estradiol 0.035 MG / norgestimate 0.25 MG Oral Tablet) / 7 (Inert Ingredients 1 MG Oral Tablet) } Pack TABLET 1.00 tablet ORAL completed Previfem 28 Day Pa ck [facility] Briellyn 0.4 mg-35 mcg tablet {21 (Ethinyl Estradiol 0 .035 MG / Norethindrone 0.4 MG Oral Tablet) / 7 (Inert Ingredients 1 MG Oral Tablet) } Pack TABLET 1.00 tablet ORAL completed Briellyn 28 Day Pa ck [facility] Metformin hydrochloride 500 MG Oral Tablet metformin 5 00 mg tablet metformin 500 mg tablet TABLET 1.00 tablet ORAL completed take 1 tablet by oral route 2 times every day with morning and evening meals [facility] Lactobacillus rhamnosus GG [id number] U NT Oral Capsule Culturelle 10 billion cell capsule Culturelle 10 billion cell capsule CAPSULE ORAL completed [facility] Clonazepam 1 MG Oral Tablet clonazepam 1 mg tablet clonazepam 1 mg tablet TABLET 1 tablet ORAL completed take 1 tablet by oral route 2 times every day [facility] methylphenidate ER 50 mg multiphase capsule 30-70,exte nded release methylphenidate HCl CAPSULE ORAL completed take 1 capsule by oral route every day before breakfast [facility] Insurance Providers Payer name Policy type / Coverage type Policy ID Covered alliance party ID Covered alliance party's relationship to soto Policy [place] Plan Information [employer] [id number] SP [id number] CDPHP COMMERCIAL U [id number] Self 3 [id number] [employer] [id number] CDPHP [id number] self [id number] Medicaid [id number] Self [id number] CDPHP [id number] Self [id number] MEDICAID NYS 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 S JA [id number] CDPHP COM [id number] F [id number] [facility] Organizational Contracts [id number] Self [id number] CDPHP [id number] self [id number] CDPHP COM [id number] F [id number] CDPHP COM [id number] F [id number] CDPHP Health Maintenance Organization (HMO) [id number] Family Dependent [id number] Medicaid [id number] Self [id number] CDPHP O 14 [id number] DE [id number] CDPHP COMMERCIAL U [id number] Self [id number] GOVERNMENTAL GENERIC B [id number] ORel [id number] MEDICAID M [id number] Self [id number] MEDICAID M [id number] Self [id number] Problems, Conditions, and Diagnoses Code Display Name Description Problem Type Effective Dates Data Source(s) 35391934 Knee pain Knee pain Problem 06/29/2019 12:00:00 AM ED T [facility] ([facility]) O40064 Nicotine dependence, cigarettes, uncompl icated Nicotine dependence, cigarettes, uncomplicated Diagnosis 11/07/2019 11:33:00 PM EDT [facility] N949 Unspecified condition associ ated with female genital organs and menstrual cycle Unspecified condition associated with fe male genital organs and menstrual cycle Diagnosis 11/07/2019 11:33:00 PM EDT [facility] N939 Abnormal uterine and vaginal bleeding, u nspecified Abnormal uterine and vaginal bleeding, unspecified Diagnosis 11/07/2019 11:33:00 PM EDT [facility] Y05001 Pain in left knee Pain in left knee Diagnosis 06/29/2019 01:18:00 PM EDT Lexi [facility] - [facility] K59.00 Constipation, unspecified Constipation, unspecified Di agnosis 06/22/2019 12:00:00 AM EDT [facility] Z4889 Encounter for other specified surgical a ftercare Encounter for other specified surgical aftercare Diagnosis 05/30/2019 08:29:00 AM EDT Asce darrell Smith - [facility] fever x 2 days fever x 2 days Diagnosis 05/26/2019 01:33: [address] [facility] left knee injury left knee injury Diagnosis 05/16/2019 05 :23:[address] [facility] R509 Fever, unspecified Fever, unspecified Diagnosis 0 02:05:[address] [facility] FEVER CONGESTION N/V FEVER CONGESTION N/V Diagnosis 05/12/2019 02:05:[address] [facility] J029 Acute pharyngitis, unspecified Acute pharyngitis, unsp ecified Diagnosis 05/12/2019 02:05:[address] [facility] VAS RC VAS RC Diagnosis 05/12/2019 12:53:[address] [facility] M7989 Other specified soft tissue disorders Ot her specified soft tissue disorders Diagnosis 05/12/2019 12:53:[address] [facility] N6452 Nipple discharge Nipple discharge Diagnosis 05/01/2019 08 :27:[address] [facility] N644 Mastodynia Mastodynia Diagnosis 05/01/2019 08:27:[address] 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 [facility] Z803 Family history of malignant neoplasm of breast Family history of malignant neoplasm of breast Diagnosis 04/27/2019 01:15:[address] [facility] Z3202 Encounter for test, result neg ative Encounter for test, result negative Diagnosis 04/27/2019 01:15:[address] [facility] L [facility] - [facility] [id number] Personal history of nicotine dependence Personal history of nicotine dependence Diagnosis 04/27/2019 01:15:[address] [facility] N59365 Other specified postprocedural states Ot her specified postprocedural states Diagnosis 04/27/2019 01:15:[address] [facility] R110 Nausea Nausea Diagnosis 04/27/2019 01:15:[address] [facility] F329 Major depressive disorder, single episod e, unspecified Major depressive disorder, single episode, unspecified Diagnosis 04/27/2019 01:15:[address] [facility] F419 Anxiety disorder, unspecified Anxiety disorder, unspec ified Diagnosis 04/27/2019 01:15:[address] [facility] K2970 Gastritis, unspecified, without bleeding Gastritis, unspecified, without bleeding Diagnosis 04/27/2019 01:15:[address] [facility] K219 Gastro-esophageal reflux disease without esophagitis Gastro-esophageal reflux disease without esophagitis Diagnosis 04/27/2019 01:15:[address] [facility] CHILLS/VOMITING/CHEST CONGESTION/PAIN CHILLS/VOM ITING/CHEST CONGESTION/PAIN Diagnosis 04/27/2019 01:15:[address] [facility] [facility] R079 Chest pain, unspecified Chest pain, unspecified Diagno sis 04/27/2019 01:15:[address] [facility] L22758 Other instability, left knee Other instability, left k nee Diagnosis 04/24/2019 10:16:[address] 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 [facility] F410 Panic disorder episodic paroxysmal an xiety Panic disorder episodic paroxysmal anxiety Diagnosis 04/10/2019 05:00:[address] [facility] E282 Polycystic ovarian syndrome Polycystic ovarian syndrom e Diagnosis 04/10/2019 05:00:[address] [facility] F909 Attention-deficit hyperactivity disorder , unspecified type Attention- deficit hyperactivity disorder, unspecified type Diagnosis 04/10 05:00:[address] [facility] Z8041 Family history of malignant neoplasm of ovary Family history of malignant neoplasm of ovary Diagnosis 04/10/2019 05:00:[address] [facility] Z880 Allergy status to penicillin Allergy status to penicil livier Diagnosis 04/10/2019 05:00:[address] 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 [facility] MP MP Diagnosis 04/10/2019 05:00:[address] [facility] NICKOLAS NICKOLAS Diagnosis 04/10/2019 05:00:[address] [facility] M2352 Chronic instability of knee, left knee C hronic instability of knee, left knee Diagnosis 04/10/2019 05:00:[address] [facility] PAT PHONE PAT PHONE Diagnosis 04/05/2019 04:00:[address] [facility] [id number] Sprain of medial collateral ligament of left knee, init Sprain of medial collateral ligament of left knee, init Diagnosis 04/04/2019 09:52:[address] [facility] K589 Irritable bowel syndrome without diarrhe a Irritable bowel syndrome without diarrhea Diagnosis 04/03/2019 12:15:[address] [facility] F418 Other specified anxiety disorders Other specifie d anxiety disorders Diagnosis 04/03/2019 12:15:[address] [facility] K2900 Acute gastritis without bleeding Acute gastritis without bleeding Diagnosis 04/03/2019 12:15:[address] [facility] VOMITING/ABD PAIN/UNABLE TO URINATE VOMITING/ABD PAIN/UNABLE TO URINATE Diagnosis 04/03/2019 12:15:[address] [facility] R1032 Left lower quadrant pain Left lower quadrant pain Diag nosis 04/03/2019 12:15:[address] [facility] [facility] BCC PRESLEY BCC PRESLEY Diagnosis 03/28/2019 04:00:[address] [facility] vomitting for a week vomitting for a week Diagnosis 03/26/2019 10:11:[address] [facility] N390 Urinary tract infection, site not specif ied Urinary tract infection, site not specified Diagnosis 03/26/2019 10:11:[address] [facility] - [facility] N946 Dysmenorrhea, unspecified Dysmenorrhea, unspecified Di agnosis 02/18/2019 09:11:[address] [facility] VOMITTING/RECTAL BLEEDING VOMITTING/RECTAL BLEEDING Di agnosis 02/18/2019 09:11:[address] [facility] R1030 Lower abdominal pain, unspecified Lower abdomina l pain, unspecified Diagnosis 02/18/2019 09:11:[address] [facility] Surgeries/Procedures Procedure Description Date Indications Data Source(s) POSTOP FOLLOW-UP VISIT POSTOP FOLLOW-UP VISIT 06/29/2019 12:00:[address] [facility] X-RAY EXAM OF KNEE 3 X-RAY EXAM OF KNEE 3 06/29/2019 12:00:[address] [facility] X-RAY EXAM OF KNEE 3 X-RAY EXAM OF KNEE 3 06/29/2019 12:00:[address] [facility] POSTOP FOLLOW-UP VISIT POSTOP FOLLOW-UP VISIT 06/29/2019 12:00:[address] [facility] X-Ray Knee Ap & Lateral W/Obliques Three Views 020 12:00:00 AM EDT [facility] ([facility]) OFFICE/OUTPATIENT VISIT EST OFFICE/OUTPATIENT VISIT EST 04/30 12:00:[address] [facility] OFFICE/OUTPATIENT VISIT EST OFFICE/OUTPATIENT VISIT EST 04/30 12:00:[address] [facility] X-RAY EXAM OF KNEE 3 X-RAY EXAM OF KNEE 3 05/16/2019 12:00:[address] [facility] OFFICE/OUTPATIENT VISIT EST OFFICE/OUTPATIENT VISIT EST 04/29 12:00:[address] [facility] X-RAY EXAM OF KNEE 3 X-RAY EXAM OF KNEE 3 05/16/2019 12:00:[address] [facility] OFFICE/OUTPATIENT VISIT EST OFFICE/OUTPATIENT VISIT EST 04/29 12:00:[address] [facility] X-RAY EXAM OF KNEE 3 X-RAY EXAM OF KNEE 3 05/16/2019 12:00:[address] [facility] X-RAY EXAM OF KNEE 3 X-RAY EXAM OF KNEE 3 05/16/2019 12:00:[address] [facility] X-RAY EXAM OF KNEE 3 X-RAY EXAM OF KNEE 3 05/16/2019 12:00:[address] [facility] RSV DNA/RNA AMP PROBE RSV DNA/RNA AMP PROBE 05/12/2019 12:00:[address] [facility] STREP A AG IA STREP A AG IA 05/12/2019 12:00:[address] [facility] EXTREMITY STUDY EXTREMITY STUDY 05/12/2019 12:00:[address] [facility] EMERGENCY DEPT VISIT EMERGENCY DEPT VISIT 05/12/2019 12:00:[address] [facility] INFLUENZA DNA AMP PROBE INFLUENZA DNA AMP PROBE 05/12/2019 12:00:[address] [facility] EMERGENCY DEPT VISIT EMERGENCY DEPT VISIT 05/12/2019 12:00:[address] [facility] RSV DNA/RNA AMP PROBE RSV DNA/RNA AMP PROBE 05/12/2019 12:00:[address] [facility] STREP A AG IA STREP A AG IA 05/12/2019 12:00:[address] [facility] INFLUENZA DNA AMP PROBE INFLUENZA DNA AMP PROBE 05/12/2019 12:00:[address] [facility] EXTREMITY STUDY EXTREMITY STUDY 05/12/2019 12:00:[address] [facility] STREP A AG IA STREP A AG IA 05/12/2019 12:00:[address] [facility] INFLUENZA DNA AMP PROBE INFLUENZA DNA AMP PROBE 05/12/2019 12:00:[address] [facility] EMERGENCY DEPT VISIT EMERGENCY DEPT VISIT 05/12/2019 12:00:[address] [facility] RSV DNA/RNA AMP PROBE RSV DNA/RNA AMP PROBE 05/12/2019 12:00:[address] [facility] EXTREMITY STUDY EXTREMITY STUDY 05/12/2019 12:00:[address] [facility] INFLUENZA DNA AMP PROBE INFLUENZA DNA AMP PROBE 05/12/2019 12:00:[address] [facility] EMERGENCY DEPT VISIT EMERGENCY DEPT VISIT 05/12/2019 12:00:[address] [facility] RSV DNA/RNA AMP PROBE RSV DNA/RNA AMP PROBE 05/12/2019 12:00:[address] [facility] STREP A AG IA STREP A AG IA 05/12/2019 12:00:[address] [facility] INFLUENZA DNA AMP PROBE INFLUENZA DNA AMP PROBE 05/12/2019 12:00:[address] [facility] EMERGENCY DEPT VISIT EMERGENCY DEPT VISIT 05/12/2019 12:00:[address] [facility] RSV DNA/RNA AMP PROBE RSV DNA/RNA AMP PROBE 05/12/2019 12:00:[address] [facility] STREP A AG IA STREP A AG IA 05/12/2019 12:00:[address] [facility] THERAPEUTIC EXERCISES THERAPEUTIC EXERCISES 05/09/2019 12:00:00 AM EDT [facility] THERAPEUTIC EXERCISES THERAPEUTIC EXERCISES 05/09/2019 12:00:00 AM EDT [facility] THERAPEUTIC EXERCISES THERAPEUTIC EXERCISES 05/09/2019 12:00:00 AM EDT [facility] Therapeutic, prophylactic, or diagnostic injection; Sub Cut/ IM 05/08/2019 12:00:00 AM EDT - 05/08/2019 12:00:00 AM EDT [facility] Toradol Inj Per 15 mg 05/08/2019 12:00:00 AM EDT - 05/08/2019 12:00:00 AM EDT [facility] Office/outpatient visit,est, mod 020 12:00:00 AM EDT - 05/08/2019 12:00:00 AM EDT [facility] THERAPEUTIC EXERCISES THERAPEUTIC EXERCISES 05/03/2019 12:00:[address] [facility] THERAPEUTIC EXERCISES THERAPEUTIC EXERCISES 05/03/2019 12:00:[address] [facility] THERAPEUTIC EXERCISES THERAPEUTIC EXERCISES 05/03/2019 12:00:[address] [facility] OFFICE/OUTPATIENT VISIT EST OFFICE/OUTPATIENT VISIT EST 04/2019 12:00:[address] [facility] OFFICE/OUTPATIENT VISIT EST OFFICE/OUTPATIENT VISIT EST 04/2019 12:00:00 AM EST [facility] ASSAY OF TROPONIN QUANT ASSAY OF TROPONIN QUANT 04/27/2019 12:00:[address] [facility] CHORIONIC GONADOTROPIN ASSAY CHORIONIC GONADOTROPIN ASSAY 12:00:[address] [facility] FIBRIN DEGRADATION QUANT FIBRIN DEGRADATION QUANT 04/27/2019 12:00: [address] [facility] COMPREHEN METABOLIC PANEL COMPREHEN METABOLIC PANEL 04/27/2019 1 2:00:[address] [facility] EMERGENCY DEPT VISIT EMERGENCY DEPT VISIT 04/27/2019 12:00:[address] [facility] BLOOD COUNT COMPLETE AUTO&AUTO DIFRNTL WBC COUNT COMPLETE CB C W/AUTO DIFF WBC 04/27/2019 12:00:[address] [facility] ELECTROCARDIOGRAM TRACING ELECTROCARDIOGRAM TRACING 04/27/2019 1 2:00:[address] [facility] X-RAY EXAM CHEST 2 VIEWS X-RAY EXAM CHEST 2 VIEWS 04/27/2019 12:00: [address] [facility] ROUTINE VENIPUNCTURE ROUTINE VENIPUNCTURE 04/27/2019 12:00:[address] [facility] COMPREHEN METABOLIC PANEL COMPREHEN METABOLIC PANEL 04/27/2019 1 2:00:[address] [facility] X-RAY EXAM CHEST 2 VIEWS X-RAY EXAM CHEST 2 VIEWS 04/27/2019 12:00: [address] [facility] FIBRIN DEGRADATION QUANT FIBRIN DEGRADATION QUANT 04/27/2019 12:00: [address] [facility] BLOOD COUNT COMPLETE AUTO&AUTO DIFRNTL WBC COUNT COMPLETE CB C W/AUTO DIFF WBC 04/27/2019 12:00:[address] [facility] CHORIONIC GONADOTROPIN ASSAY CHORIONIC GONADOTROPIN ASSAY 12:00:[address] [facility] EMERGENCY DEPT VISIT EMERGENCY DEPT VISIT 04/27/2019 12:00:[address] [facility] ROUTINE VENIPUNCTURE ROUTINE VENIPUNCTURE 04/27/2019 12:00:[address] [facility] ELECTROCARDIOGRAM TRACING ELECTROCARDIOGRAM TRACING 04/27/2019 1 2:00:[address] [facility] ASSAY OF TROPONIN QUANT ASSAY OF TROPONIN QUANT 04/27/2019 12:00:[address] [facility] ELECTROCARDIOGRAM TRACING ELECTROCARDIOGRAM TRACING 04/27/2019 1 2:00:[address] [facility] BLOOD COUNT COMPLETE AUTO&AUTO DIFRNTL WBC COUNT COMPLETE CB C W/AUTO DIFF WBC 04/27/2019 12:00:[address] [facility] EMERGENCY DEPT VISIT EMERGENCY DEPT VISIT 04/27/2019 12:00:[address] [facility] COMPREHEN METABOLIC PANEL COMPREHEN METABOLIC PANEL 04/27/2019 1 2:00:[address] [facility] ROUTINE VENIPUNCTURE ROUTINE VENIPUNCTURE 04/27/2019 12:00:[address] [facility] CHORIONIC GONADOTROPIN ASSAY CHORIONIC GONADOTROPIN ASSAY 12:00:[address] [facility] FIBRIN DEGRADATION QUANT FIBRIN DEGRADATION QUANT 04/27/2019 12:00: [address] [facility] X-RAY EXAM CHEST 2 VIEWS X-RAY EXAM CHEST 2 VIEWS 04/27/2019 12:00: [address] [facility] ASSAY OF TROPONIN QUANT ASSAY OF TROPONIN QUANT 04/27/2019 12:00:[address] [facility] CHORIONIC GONADOTROPIN ASSAY CHORIONIC GONADOTROPIN ASSAY 12:00:[address] [facility] COMPREHEN METABOLIC PANEL COMPREHEN METABOLIC PANEL 04/27/2019 1 2:00:[address] [facility] BLOOD COUNT COMPLETE AUTO&AUTO DIFRNTL WBC COUNT COMPLETE CB C W/AUTO DIFF WBC 04/27/2019 12:00:[address] [facility] FIBRIN DEGRADATION QUANT FIBRIN DEGRADATION QUANT 04/27/2019 12:00: [address] [facility] ASSAY OF TROPONIN QUANT ASSAY OF TROPONIN QUANT 04/27/2019 12:00:[address] [facility] X-RAY EXAM CHEST 2 VIEWS X-RAY EXAM CHEST 2 VIEWS 04/27/2019 12:00: [address] [facility] ROUTINE VENIPUNCTURE ROUTINE VENIPUNCTURE 04/27/2019 12:00:[address] [facility] ELECTROCARDIOGRAM TRACING ELECTROCARDIOGRAM TRACING 04/27/2019 1 2:00:[address] [facility] EMERGENCY DEPT VISIT EMERGENCY DEPT VISIT 04/27/2019 12:00:[address] [facility] COMPREHEN METABOLIC PANEL COMPREHEN METABOLIC PANEL 04/27/2019 1 2:00:[address] [facility] ROUTINE VENIPUNCTURE ROUTINE VENIPUNCTURE 04/27/2019 12:00:[address] [facility] CHORIONIC GONADOTROPIN ASSAY CHORIONIC GONADOTROPIN ASSAY 12:00:[address] [facility] [facility] X-RAY EXAM CHEST 2 VIEWS X-RAY EXAM CHEST 2 VIEWS 04/27/2019 12:00: [address] [facility] FIBRIN DEGRADATION QUANT FIBRIN DEGRADATION QUANT 04/27/2019 12:00: [address] [facility] ELECTROCARDIOGRAM TRACING ELECTROCARDIOGRAM TRACING 04/27/2019 1 2:00:[address] [facility] ASSAY OF TROPONIN QUANT ASSAY OF TROPONIN QUANT 04/27/2019 12:00:[address] [facility] EMERGENCY DEPT VISIT EMERGENCY DEPT VISIT 04/27/2019 12:00:[address] [facility] BLOOD COUNT COMPLETE AUTO&AUTO DIFRNTL WBC COUNT COMPLETE CB C W/AUTO DIFF WBC 04/27/2019 12:00:[address] [facility] X-RAY EXAM OF KNEE 1 OR 2 X-RAY EXAM OF KNEE 1 OR 2 04/24/2019 1 2:00:[address] [facility] POSTOP FOLLOW-UP VISIT POSTOP FOLLOW-UP VISIT 04/24/2019 12:00:[address] [facility] X-RAY EXAM OF KNEE 1 OR 2 X-RAY EXAM OF KNEE 1 OR 2 04/24/2019 1 2:00:[address] [facility] POSTOP FOLLOW-UP VISIT POSTOP FOLLOW-UP VISIT 04/24/2019 12:00:[address] [facility] X-Ray Knee Ap & Lateral 04/24/2019 12:00:00 AM EST [facility] ([facility]) X-RAY EXAM OF KNEE 1 OR 2 X-RAY EXAM OF KNEE 1 OR 2 04/24/2019 1 2:00:[address] [facility] POSTOP FOLLOW-UP VISIT POSTOP FOLLOW-UP VISIT 04/24/2019 12:00:[address] [facility] X-RAY EXAM OF KNEE 1 OR 2 X-RAY EXAM OF KNEE 1 OR 2 04/24/2019 1 2:00:[address] [facility] POSTOP FOLLOW-UP VISIT POSTOP FOLLOW-UP VISIT 04/24/2019 12:00:[address] [facility] POSTOP FOLLOW-UP VISIT POSTOP FOLLOW-UP VISIT 04/24/2019 12:00:[address] [facility] X-RAY EXAM OF KNEE 1 OR 2 X-RAY EXAM OF KNEE 1 OR 2 04/24/2019 1 2:00:[address] [facility] Reposition Left Knee Joint, Open Approach Reposition L eft Knee Joint, Open Approach 04/10/2019 12:00:[address] [facility] REVISION OF UNSTABLE KNEECAP REVISION OF UNSTABLE KNEECAP 12:00:[address] [facility] left knee reconstruction left knee reconstruction 04/10/2019 12:00: [address] [facility] RECONSTRUCTION KNEE RECONSTRUCTION KNEE 04/10/2019 12:00:[address] [facility] REVISION OF UNSTABLE KNEECAP REVISION OF UNSTABLE KNEECAP 12:00:[address] [facility] Reposition Left Knee Joint, Open Approach Reposition L eft Knee Joint, Open Approach 04/10/2019 12:00:[address] [facility] RECONSTRUCTION KNEE RECONSTRUCTION KNEE 04/10/2019 12:00:[address] [facility] REVISION OF UNSTABLE KNEECAP REVISION OF UNSTABLE KNEECAP 12:00:[address] [facility] left knee reconstruction left knee reconstruction 04/10/2019 12:00: [address] [facility] REVISION OF UNSTABLE KNEECAP REVISION OF UNSTABLE KNEECAP 12:00:[address] [facility] Reconstruct Patella W/Extensor Realignment/Muscle Advance/Re lease 04/10/2019 12:00:00 AM EST [facility] ([facility]) Reconstruct Patella W/Extensor Realignment/Muscle Advance/Re lease 04/10/2019 12:00:00 AM EST [facility] ([facility]) left knee reconstruction left knee reconstruction 04/10/2019 12:00: [address] [facility] REVISION OF UNSTABLE KNEECAP REVISION OF UNSTABLE KNEECAP 12:00:[address] [facility] RECONSTRUCTION KNEE RECONSTRUCTION KNEE 04/10/2019 12:00:[address] [facility] REVISION OF UNSTABLE KNEECAP REVISION OF UNSTABLE KNEECAP 12:00:[address] [facility] Reposition Left Knee Joint, Open Approach Reposition L eft Knee Joint, Open Approach 04/10/2019 12:00:[address] [facility] REVISION OF UNSTABLE KNEECAP REVISION OF UNSTABLE KNEECAP 12:00:[address] [facility] RECONSTRUCTION KNEE RECONSTRUCTION KNEE 04/10/2019 12:00:[address] [facility] REVISION OF UNSTABLE KNEECAP REVISION OF UNSTABLE KNEECAP 12:00:[address] [facility] left knee reconstruction left knee reconstruction 04/10/2019 12:00: [address] [facility] Reposition Left Knee Joint, Open Approach Reposition L eft Knee Joint, Open Approach 04/10/2019 12:00:[address] [facility] left knee reconstruction left knee reconstruction 04/10/2019 12:00: [address] [facility] REVISION OF UNSTABLE KNEECAP REVISION OF UNSTABLE KNEECAP 12:00:[address] [facility] REVISION OF UNSTABLE KNEECAP REVISION OF UNSTABLE KNEECAP 12:00:[address] [facility] Reposition Left Knee Joint, Open Approach Reposition L eft Knee Joint, Open Approach 04/10/2019 12:00:[address] [facility] RECONSTRUCTION KNEE RECONSTRUCTION KNEE 04/10/2019 12:00:[address] [facility] REVISION OF UNSTABLE KNEECAP REVISION OF UNSTABLE KNEECAP 12:00:[address] [facility] REVISION OF UNSTABLE KNEECAP REVISION OF UNSTABLE KNEECAP 12:00:[address] [facility] Reposition Left Knee Joint, Open Approach Reposition L eft Knee Joint, Open Approach 04/10/2019 12:00:[address] [facility] RECONSTRUCTION KNEE RECONSTRUCTION KNEE 04/10/2019 12:00:[address] [facility] OFFICE/OUTPATIENT VISIT EST OFFICE/OUTPATIENT VISIT EST 05/2019 12:00:[address] [facility] OFFICE/OUTPATIENT VISIT EST OFFICE/OUTPATIENT VISIT EST 05/2019 12:00:[address] [facility] OFFICE/OUTPATIENT VISIT EST OFFICE/OUTPATIENT VISIT EST 05/2019 12:00:[address] [facility] OFFICE/OUTPATIENT VISIT EST OFFICE/OUTPATIENT VISIT EST 05/2019 12:00:[address] [facility] OFFICE/OUTPATIENT VISIT EST OFFICE/OUTPATIENT VISIT EST 05/2019 12:00:[address] [facility] OFFICE/OUTPATIENT VISIT EST OFFICE/OUTPATIENT VISIT EST 05/2019 12:00:[address] [facility] ONDANSETRON HCL INJECTION ONDANSETRON HCL INJECTION 04/03/2019 1 2:00:[address] [facility] URINE CULTURE/COLONY COUNT URINE CULTURE/COLONY COUNT 2019 12:00:[address] [facility] C-REACTIVE PROTEIN C-REACTIVE PROTEIN 04/03/2019 12:00:[address] [facility] EMERGENCY DEPT VISIT EMERGENCY DEPT VISIT 04/03/2019 12:00:[address] [facility] CT ABD & PELVIS W/O CONTRAST CT ABD & PELVIS W/O CONTRAST 12:00:[address] [facility] THER/PROPH/DIAG INJ IV PUSH THER/PROPH/DIAG INJ IV PUSH 04/2019 12:00:[address] [facility] ASSAY OF LIPASE ASSAY OF LIPASE 04/03/2019 12:00:[address] [facility] BLOOD COUNT COMPLETE AUTO&AUTO DIFRNTL WBC COUNT COMPLETE CB C W/AUTO DIFF WBC 04/03/2019 12:00:[address] [facility] ROUTINE VENIPUNCTURE ROUTINE VENIPUNCTURE 04/03/2019 12:00:[address] [facility] COMPREHEN METABOLIC PANEL COMPREHEN METABOLIC PANEL 04/03/2019 1 2:00:[address] [facility] URINALYSIS AUTO W/SCOPE URINALYSIS AUTO W/SCOPE 04/03/2019 12:00:[address] [facility] CHORIONIC GONADOTROPIN ASSAY CHORIONIC GONADOTROPIN ASSAY 12:00:[address] [facility] Catheterize for urine spec Catheterize for urine spec 2019 12:00:[address] [facility] URINALYSIS AUTO W/SCOPE URINALYSIS AUTO W/SCOPE 04/03/2019 12:00:[address] [facility] EMERGENCY DEPT VISIT EMERGENCY DEPT VISIT 04/03/2019 12:00:[address] [facility] ONDANSETRON HCL INJECTION ONDANSETRON HCL INJECTION 04/03/2019 1 2:00:[address] [facility] URINE CULTURE/COLONY COUNT URINE CULTURE/COLONY COUNT 2019 12:00:[address] [facility] C-REACTIVE PROTEIN C-REACTIVE PROTEIN 04/03/2019 12:00:[address] [facility] ROUTINE VENIPUNCTURE ROUTINE VENIPUNCTURE 04/03/2019 12:00:[address] [facility] CHORIONIC GONADOTROPIN ASSAY CHORIONIC GONADOTROPIN ASSAY 12:00:[address] [facility] Catheterize for urine spec Catheterize for urine spec 2019 12:00:[address] [facility] BLOOD COUNT COMPLETE AUTO&AUTO DIFRNTL WBC COUNT COMPLETE CB C W/AUTO DIFF WBC 04/03/2019 12:00:[address] [facility] COMPREHEN METABOLIC PANEL COMPREHEN METABOLIC PANEL 04/03/2019 1 2:00:[address] [facility] CT ABD & PELVIS W/O CONTRAST CT ABD & PELVIS W/O CONTRAST 12:00:[address] [facility] THER/PROPH/DIAG INJ IV PUSH THER/PROPH/DIAG INJ IV PUSH 04/2019 12:00:[address] [facility] ASSAY OF LIPASE ASSAY OF LIPASE 04/03/2019 12:00:[address] [facility] THER/PROPH/DIAG INJ IV PUSH THER/PROPH/DIAG INJ IV PUSH 04/2019 12:00:[address] [facility] BLOOD COUNT COMPLETE AUTO&AUTO DIFRNTL WBC COUNT COMPLETE CB C W/AUTO DIFF WBC 04/03/2019 12:00:[address] [facility] CHORIONIC GONADOTROPIN ASSAY CHORIONIC GONADOTROPIN ASSAY 12:00:[address] [facility] Catheterize for urine spec Catheterize for urine spec 2019 12:00:[address] [facility] ASSAY OF LIPASE ASSAY OF LIPASE 04/03/2019 12:00:[address] [facility] URINE CULTURE/COLONY COUNT URINE CULTURE/COLONY COUNT 2019 12:00:[address] [facility] URINALYSIS AUTO W/SCOPE URINALYSIS AUTO W/SCOPE 04/03/2019 12:00:[address] [facility] C-REACTIVE PROTEIN C-REACTIVE PROTEIN 04/03/2019 12:00:[address] [facility] ROUTINE VENIPUNCTURE ROUTINE VENIPUNCTURE 04/03/2019 12:00:[address] [facility] ONDANSETRON HCL INJECTION ONDANSETRON HCL INJECTION 04/03/2019 1 2:00:[address] [facility] COMPREHEN METABOLIC PANEL COMPREHEN METABOLIC PANEL 04/03/2019 1 2:00:[address] [facility] CT ABD & PELVIS W/O CONTRAST CT ABD & PELVIS W/O CONTRAST 12:00:[address] [facility] EMERGENCY DEPT VISIT EMERGENCY DEPT VISIT 04/03/2019 12:00:[address] [facility] BLOOD COUNT COMPLETE AUTO&AUTO DIFRNTL WBC COUNT COMPLETE CB C W/AUTO DIFF WBC 04/03/2019 12:00:[address] [facility] ONDANSETRON HCL INJECTION ONDANSETRON HCL INJECTION 04/03/2019 1 2:00:[address] [facility] URINE CULTURE/COLONY COUNT URINE CULTURE/COLONY COUNT 2019 12:00:[address] [facility] C-REACTIVE PROTEIN C-REACTIVE PROTEIN 04/03/2019 12:00:[address] [facility] CHORIONIC GONADOTROPIN ASSAY CHORIONIC GONADOTROPIN ASSAY 12:00:[address] [facility] ASSAY OF LIPASE ASSAY OF LIPASE 04/03/2019 12:00:[address] [facility] THER/PROPH/DIAG INJ IV PUSH THER/PROPH/DIAG INJ IV PUSH 04/2019 12:00:[address] [facility] Catheterize for urine spec Catheterize for urine spec 2019 12:00:[address] [facility] COMPREHEN METABOLIC PANEL COMPREHEN METABOLIC PANEL 04/03/2019 1 2:00:[address] [facility] URINALYSIS AUTO W/SCOPE URINALYSIS AUTO W/SCOPE 04/03/2019 12:00:[address] [facility] ROUTINE VENIPUNCTURE ROUTINE VENIPUNCTURE 04/03/2019 12:00:[address] [facility] EMERGENCY DEPT VISIT EMERGENCY DEPT VISIT 04/03/2019 12:00:[address] [facility] CT ABD & PELVIS W/O CONTRAST CT ABD & PELVIS W/O CONTRAST 12:00:[address] [facility] BLOOD COUNT COMPLETE AUTO&AUTO DIFRNTL WBC COUNT COMPLETE CB C W/AUTO DIFF WBC 04/03/2019 12:00:[address] [facility] ROUTINE VENIPUNCTURE ROUTINE VENIPUNCTURE 04/03/2019 12:00:[address] [facility] COMPREHEN METABOLIC PANEL COMPREHEN METABOLIC PANEL 04/03/2019 1 2:00:[address] [facility] CT ABD & PELVIS W/O CONTRAST CT ABD & PELVIS W/O CONTRAST 12:00:[address] [facility] URINALYSIS AUTO W/SCOPE URINALYSIS AUTO W/SCOPE 04/03/2019 12:00:[address] [facility] C-REACTIVE PROTEIN C-REACTIVE PROTEIN 04/03/2019 12:00:[address] [facility] ASSAY OF LIPASE ASSAY OF LIPASE 04/03/2019 12:00:[address] [facility] Catheterize for urine spec Catheterize for urine spec 2019 12:00:[address] [facility] ONDANSETRON HCL INJECTION ONDANSETRON HCL INJECTION 04/03/2019 1 2:00:[address] [facility] URINE CULTURE/COLONY COUNT URINE CULTURE/COLONY COUNT 2019 12:00:[address] [facility] THER/PROPH/DIAG INJ IV PUSH THER/PROPH/DIAG INJ IV PUSH 0 04/2019 12:00:[address] [facility] CHORIONIC GONADOTROPIN ASSAY CHORIONIC GONADOTROPIN ASSAY 12:00:[address] [facility] EMERGENCY DEPT VISIT EMERGENCY DEPT VISIT 04/03/2019 12:00:[address] [facility] THER/PROPH/DIAG INJ IV PUSH THER/PROPH/DIAG INJ IV PUSH 0 04/2019 12:00:[address] [facility] C-REACTIVE PROTEIN C-REACTIVE PROTEIN 04/03/2019 12:00:[address] [facility] COMPREHEN METABOLIC PANEL COMPREHEN METABOLIC PANEL 04/03/2019 1 2:00:[address] [facility] ROUTINE VENIPUNCTURE ROUTINE VENIPUNCTURE 04/03/2019 12:00:[address] [facility] URINALYSIS AUTO W/SCOPE URINALYSIS AUTO W/SCOPE 04/03/2019 12:00:[address] [facility] BLOOD COUNT COMPLETE AUTO&AUTO DIFRNTL WBC COUNT COMPLETE CB C W/AUTO DIFF WBC 04/03/2019 12:00:[address] [facility] EMERGENCY DEPT VISIT EMERGENCY DEPT VISIT 04/03/2019 12:00:[address] [facility] ONDANSETRON HCL INJECTION ONDANSETRON HCL INJECTION 04/03/2019 1 2:00:[address] [facility] CHORIONIC GONADOTROPIN ASSAY CHORIONIC GONADOTROPIN ASSAY 12:00:[address] [facility] URINE CULTURE/COLONY COUNT URINE CULTURE/COLONY COUNT 2019 12:00:[address] [facility] Catheterize for urine spec Catheterize for urine spec 2019 12:00:[address] [facility] CT ABD & PELVIS W/O CONTRAST CT ABD & PELVIS W/O CONTRAST 12:00:[address] [facility] ASSAY OF LIPASE ASSAY OF LIPASE 04/03/2019 12:00:[address] [facility] C-REACTIVE PROTEIN C-REACTIVE PROTEIN 04/03/2019 12:00:[address] [facility] Catheterize for urine spec Catheterize for urine spec 2019 12:00:[address] [facility] BLOOD COUNT COMPLETE AUTO&AUTO DIFRNTL WBC COUNT COMPLETE CB C W/AUTO DIFF WBC 04/03/2019 12:00:[address] [facility] COMPREHEN METABOLIC PANEL COMPREHEN METABOLIC PANEL 04/03/2019 1 2:00:[address] [facility] CHORIONIC GONADOTROPIN ASSAY CHORIONIC GONADOTROPIN ASSAY 12:00:[address] [facility] ONDANSETRON HCL INJECTION ONDANSETRON HCL INJECTION 04/03/2019 1 2:00:[address] [facility] URINE CULTURE/COLONY COUNT URINE CULTURE/COLONY COUNT 2019 12:00:[address] [facility] CT ABD & PELVIS W/O CONTRAST CT ABD & PELVIS W/O CONTRAST 12:00:[address] [facility] ROUTINE VENIPUNCTURE ROUTINE VENIPUNCTURE 04/03/2019 12:00:[address] [facility] EMERGENCY DEPT VISIT EMERGENCY DEPT VISIT 04/03/2019 12:00:[address] [facility] URINALYSIS AUTO W/SCOPE URINALYSIS AUTO W/SCOPE 04/03/2019 12:00:[address] [facility] THER/PROPH/DIAG INJ IV PUSH THER/PROPH/DIAG INJ IV PUSH /04/2019 12:00:[address] [facility] ASSAY OF LIPASE ASSAY OF LIPASE 04/03/2019 12:00:[address] [facility] URINE CULTURE/COLONY COUNT URINE CULTURE/COLONY COUNT 2019 12:00:[address] [facility] OFFICE/OUTPATIENT VISIT EST OFFICE/OUTPATIENT VISIT EST 03/02 12:00:[address] [facility] OFFICE/OUTPATIENT VISIT EST OFFICE/OUTPATIENT VISIT EST 03/02 12:00:[address] [facility] URINE CULTURE/COLONY COUNT URINE CULTURE/COLONY COUNT 2019 12:00:[address] [facility] URINE CULTURE/COLONY COUNT URINE CULTURE/COLONY COUNT 2019 12:00:[address] [facility] URINE CULTURE/COLONY COUNT URINE CULTURE/COLONY COUNT 2019 12:00:[address] [facility] URINE CULTURE/COLONY COUNT URINE CULTURE/COLONY COUNT 2019 12:00:[address] [facility] URINE CULTURE/COLONY COUNT URINE CULTURE/COLONY COUNT 2019 12:00:[address] [facility] URINE CULTURE/COLONY COUNT URINE CULTURE/COLONY COUNT 2019 12:00:[address] [facility] URINE CULTURE/COLONY COUNT URINE CULTURE/COLONY COUNT 2019 12:00:[address] [facility] URINE CULTURE/COLONY COUNT URINE CULTURE/COLONY COUNT 2019 12:00:[address] [facility] CHORIONIC GONADOTROPIN ASSAY CHORIONIC GONADOTROPIN ASSAY 12:00:[address] [facility] ASSAY OF AMYLASE ASSAY OF AMYLASE 02/18/2019 12:00:[address] [facility] COMPREHEN METABOLIC PANEL COMPREHEN METABOLIC PANEL 02/18/2019 1 2:00:[address] [facility] EMERGENCY DEPT VISIT EMERGENCY DEPT VISIT 02/18/2019 12:00:[address] [facility] CT ABD & PELV W/CONTRAST CT ABD & PELV W/CONTRAST 02/18/2019 12:00: [address] [facility] THROMBOPLASTIN TIME PARTIAL THROMBOPLASTIN TIME PARTIAL 01/30 12:00:[address] [facility] TRANSVAGINAL US NON-OB TRANSVAGINAL US NON-OB 02/18/2019 12:00:[address] [facility] BLOOD COUNT COMPLETE AUTO&AUTO DIFRNTL WBC COUNT COMPLETE CB C W/AUTO DIFF WBC 02/18/2019 12:00:[address] [facility] C-REACTIVE PROTEIN C-REACTIVE PROTEIN 02/18/2019 12:00:[address] [facility] [facility] KETOROLAC TROMETHAMINE INJ KETOROLAC TROMETHAMINE INJ 2018 12:00:[address] [facility] ROUTINE VENIPUNCTURE ROUTINE VENIPUNCTURE 02/18/2019 12:00:[address] [facility] ROUTINE VENIPUNCTURE ROUTINE VENIPUNCTURE 02/18/2019 12:00:[address] [facility] THER/PROPH/DIAG INJ IV PUSH THER/PROPH/DIAG INJ IV PUSH 01/30 12:00:[address] [facility] ASSAY OF LIPASE ASSAY OF LIPASE 02/18/2019 12:00:[address] [facility] EMERGENCY DEPT VISIT EMERGENCY DEPT VISIT 02/18/2019 12:00:[address] [facility] C-REACTIVE PROTEIN C-REACTIVE PROTEIN 02/18/2019 12:00:[address] [facility] THROMBOPLASTIN TIME PARTIAL THROMBOPLASTIN TIME PARTIAL 01/30 12:00:[address] [facility] KETOROLAC TROMETHAMINE INJ KETOROLAC TROMETHAMINE INJ 2018 12:00:[address] [facility] ROUTINE VENIPUNCTURE ROUTINE VENIPUNCTURE 02/18/2019 12:00:[address] [facility] CHORIONIC GONADOTROPIN ASSAY CHORIONIC GONADOTROPIN ASSAY 12:00:[address] [facility] ASSAY OF LIPASE ASSAY OF LIPASE 02/18/2019 12:00:[address] [facility] COMPREHEN METABOLIC PANEL COMPREHEN METABOLIC PANEL 02/18/2019 1 2:00:[address] [facility] BLOOD COUNT COMPLETE AUTO&AUTO DIFRNTL WBC COUNT COMPLETE CB C W/AUTO DIFF WBC 02/18/2019 12:00:[address] [facility] THER/PROPH/DIAG INJ IV PUSH THER/PROPH/DIAG INJ IV PUSH 01/30 12:00:[address] [facility] CT ABD & PELV W/CONTRAST CT ABD & PELV W/CONTRAST 02/18/2019 12:00: [address] [facility] TRANSVAGINAL US NON-OB TRANSVAGINAL US NON-OB 02/18/2019 12:00:[address] [facility] ASSAY OF AMYLASE ASSAY OF AMYLASE 02/18/2019 12:00:[address] [facility] ROUTINE VENIPUNCTURE ROUTINE VENIPUNCTURE 02/18/2019 12:00:[address] [facility] THROMBOPLASTIN TIME PARTIAL THROMBOPLASTIN TIME PARTIAL 01/30 12:00:[address] [facility] KETOROLAC TROMETHAMINE INJ KETOROLAC TROMETHAMINE INJ 2018 12:00:[address] [facility] ROUTINE VENIPUNCTURE ROUTINE VENIPUNCTURE 02/18/2019 12:00:[address] [facility] THER/PROPH/DIAG INJ IV PUSH THER/PROPH/DIAG INJ IV PUSH 01/30 12:00:[address] [facility] CHORIONIC GONADOTROPIN ASSAY CHORIONIC GONADOTROPIN ASSAY 12:00:[address] [facility] TRANSVAGINAL US NON-OB TRANSVAGINAL US NON-OB 02/18/2019 12:00:[address] [facility] BLOOD COUNT COMPLETE AUTO&AUTO DIFRNTL WBC COUNT COMPLETE CB C W/AUTO DIFF WBC 02/18/2019 12:00:[address] [facility] ROUTINE VENIPUNCTURE ROUTINE VENIPUNCTURE 02/18/2019 12:00:[address] [facility] EMERGENCY DEPT VISIT EMERGENCY DEPT VISIT 02/18/2019 12:00:[address] [facility] ASSAY OF LIPASE ASSAY OF LIPASE 02/18/2019 12:00:[address] [facility] CT ABD & PELV W/CONTRAST CT ABD & PELV W/CONTRAST 02/18/2019 12:00: [address] [facility] COMPREHEN METABOLIC PANEL COMPREHEN METABOLIC PANEL 02/18/2019 1 2:00:[address] [facility] ASSAY OF AMYLASE ASSAY OF AMYLASE 02/18/2019 12:00:[address] [facility] C-REACTIVE PROTEIN C-REACTIVE PROTEIN 02/18/2019 12:00:[address] [facility] ROUTINE VENIPUNCTURE ROUTINE VENIPUNCTURE 02/18/2019 12:00:[address] [facility] COMPREHEN METABOLIC PANEL COMPREHEN METABOLIC PANEL 02/18/2019 1 2:00:[address] [facility] CHORIONIC GONADOTROPIN ASSAY CHORIONIC GONADOTROPIN ASSAY 12:00:[address] [facility] ROUTINE VENIPUNCTURE ROUTINE VENIPUNCTURE 02/18/2019 12:00:[address] [facility] C-REACTIVE PROTEIN C-REACTIVE PROTEIN 02/18/2019 12:00:[address] [facility] ASSAY OF LIPASE ASSAY OF LIPASE 02/18/2019 12:00:[address] [facility] ASSAY OF AMYLASE ASSAY OF AMYLASE 02/18/2019 12:00:[address] [facility] THER/PROPH/DIAG INJ IV PUSH THER/PROPH/DIAG INJ IV PUSH 01/30 12:00:[address] [facility] KETOROLAC TROMETHAMINE INJ KETOROLAC TROMETHAMINE INJ 2018 12:00:[address] [facility] CT ABD & PELV W/CONTRAST CT ABD & PELV W/CONTRAST 02/18/2019 12:00: [address] [facility] EMERGENCY DEPT VISIT EMERGENCY DEPT VISIT 02/18/2019 12:00:[address] [facility] THROMBOPLASTIN TIME PARTIAL THROMBOPLASTIN TIME PARTIAL 01/30 12:00:[address] [facility] BLOOD COUNT COMPLETE AUTO&AUTO DIFRNTL WBC COUNT COMPLETE CB C W/AUTO DIFF WBC 02/18/2019 12:00:[address] [facility] TRANSVAGINAL US NON-OB TRANSVAGINAL US NON-OB 02/18/2019 12:00:[address] [facility] THROMBOPLASTIN TIME PARTIAL THROMBOPLASTIN TIME PARTIAL 01/30 12:00:[address] [facility] CHORIONIC GONADOTROPIN ASSAY CHORIONIC GONADOTROPIN ASSAY 12:00:[address] [facility] ROUTINE VENIPUNCTURE ROUTINE VENIPUNCTURE 02/18/2019 12:00:[address] [facility] ROUTINE VENIPUNCTURE ROUTINE VENIPUNCTURE 02/18/2019 12:00:[address] [facility] ASSAY OF AMYLASE ASSAY OF AMYLASE 02/18/2019 12:00:[address] [facility] BLOOD COUNT COMPLETE AUTO&AUTO DIFRNTL WBC COUNT COMPLETE CB C W/AUTO DIFF WBC 02/18/2019 12:00:[address] [facility] THER/PROPH/DIAG INJ IV PUSH THER/PROPH/DIAG INJ IV PUSH 01/30 12:00:[address] [facility] ASSAY OF LIPASE ASSAY OF LIPASE 02/18/2019 12:00:[address] [facility] C-REACTIVE PROTEIN C-REACTIVE PROTEIN 02/18/2019 12:00:[address] [facility] CT ABD & PELV W/CONTRAST CT ABD & PELV W/CONTRAST 02/18/2019 12:00: [address] [facility] TRANSVAGINAL US NON-OB TRANSVAGINAL US NON-OB 02/18/2019 12:00:[address] [facility] COMPREHEN METABOLIC PANEL COMPREHEN METABOLIC PANEL 02/18/2019 1 2:00:[address] [facility] KETOROLAC TROMETHAMINE INJ KETOROLAC TROMETHAMINE INJ 2018 12:00:[address] [facility] EMERGENCY DEPT VISIT EMERGENCY DEPT VISIT 02/18/2019 12:00:[address] [facility] EMERGENCY DEPT VISIT EMERGENCY DEPT VISIT 02/18/2019 12:00:[address] [facility] COMPREHEN METABOLIC PANEL COMPREHEN METABOLIC PANEL 02/18/2019 1 2:00:[address] [facility] TRANSVAGINAL US NON-OB TRANSVAGINAL US NON-OB 02/18/2019 12:00:[address] [facility] KETOROLAC TROMETHAMINE INJ KETOROLAC TROMETHAMINE INJ 2018 12:00:[address] [facility] ROUTINE VENIPUNCTURE ROUTINE VENIPUNCTURE 02/18/2019 12:00:[address] [facility] CHORIONIC GONADOTROPIN ASSAY CHORIONIC GONADOTROPIN ASSAY 12:00:[address] [facility] ASSAY OF LIPASE ASSAY OF LIPASE 02/18/2019 12:00:[address] [facility] THER/PROPH/DIAG INJ IV PUSH THER/PROPH/DIAG INJ IV PUSH 01/30 12:00:[address] [facility] ASSAY OF AMYLASE ASSAY OF AMYLASE 02/18/2019 12:00:[address] [facility] BLOOD COUNT COMPLETE AUTO&AUTO DIFRNTL WBC COUNT COMPLETE CB C W/AUTO DIFF WBC 02/18/2019 12:00:[address] [facility] C-REACTIVE PROTEIN C-REACTIVE PROTEIN 02/18/2019 12:00:[address] [facility] ROUTINE VENIPUNCTURE ROUTINE VENIPUNCTURE 02/18/2019 12:00:[address] [facility] CT ABD & PELV W/CONTRAST CT ABD & PELV W/CONTRAST 02/18/2019 12:00: [address] [facility] THROMBOPLASTIN TIME PARTIAL THROMBOPLASTIN TIME PARTIAL 01/30 12:00:[address] [facility] ASSAY OF AMYLASE ASSAY OF AMYLASE 02/18/2019 12:00:[address] [facility] ROUTINE VENIPUNCTURE ROUTINE VENIPUNCTURE 02/18/2019 12:00:[address] [facility] COMPREHEN METABOLIC PANEL COMPREHEN METABOLIC PANEL 02/18/2019 1 2:00:[address] [facility] BLOOD COUNT COMPLETE AUTO&AUTO DIFRNTL WBC COUNT COMPLETE CB C W/AUTO DIFF WBC 02/18/2019 12:00:[address] [facility] THER/PROPH/DIAG INJ IV PUSH THER/PROPH/DIAG INJ IV PUSH 01/30 12:00:[address] [facility] CHORIONIC GONADOTROPIN ASSAY CHORIONIC GONADOTROPIN ASSAY 12:00:[address] [facility] KETOROLAC TROMETHAMINE INJ KETOROLAC TROMETHAMINE INJ 2018 12:00:[address] [facility] THROMBOPLASTIN TIME PARTIAL THROMBOPLASTIN TIME PARTIAL 01/30 12:00:[address] [facility] ASSAY OF LIPASE ASSAY OF LIPASE 02/18/2019 12:00:[address] [facility] C-REACTIVE PROTEIN C-REACTIVE PROTEIN 02/18/2019 12:00:[address] [facility] ROUTINE VENIPUNCTURE ROUTINE VENIPUNCTURE 02/18/2019 12:00:[address] [facility] TRANSVAGINAL US NON-OB TRANSVAGINAL US NON-OB 02/18/2019 12:00:[address] [facility] EMERGENCY DEPT VISIT EMERGENCY DEPT VISIT 02/18/2019 12:00:[address] [facility] CT ABD & PELV W/CONTRAST CT ABD & PELV W/CONTRAST 02/18/2019 12:00: [address] [facility] EMERGENCY DEPT VISIT EMERGENCY DEPT VISIT 02/18/2019 12:00:[address] [facility] KETOROLAC TROMETHAMINE INJ KETOROLAC TROMETHAMINE INJ 2018 12:00:[address] [facility] C-REACTIVE PROTEIN C-REACTIVE PROTEIN 02/18/2019 12:00:[address] [facility] COMPREHEN METABOLIC PANEL COMPREHEN METABOLIC PANEL 02/18/2019 1 2:00:[address] [facility] CT ABD & PELV W/CONTRAST CT ABD & PELV W/CONTRAST 02/18/2019 12:00: [address] [facility] ROUTINE VENIPUNCTURE ROUTINE VENIPUNCTURE 02/18/2019 12:00:[address] [facility] CHORIONIC GONADOTROPIN ASSAY CHORIONIC GONADOTROPIN ASSAY 12:00:[address] [facility] ROUTINE VENIPUNCTURE ROUTINE VENIPUNCTURE 02/18/2019 12:00:[address] [facility] ASSAY OF AMYLASE ASSAY OF AMYLASE 02/18/2019 12:00:[address] [facility] THROMBOPLASTIN TIME PARTIAL THROMBOPLASTIN TIME PARTIAL 01/30 12:00:[address] [facility] TRANSVAGINAL US NON-OB TRANSVAGINAL US NON-OB 02/18/2019 12:00:[address] [facility] ASSAY OF LIPASE ASSAY OF LIPASE 02/18/2019 12:00:[address] [facility] BLOOD COUNT COMPLETE AUTO&AUTO DIFRNTL WBC COUNT COMPLETE CB C W/AUTO DIFF WBC 02/18/2019 12:00:[address] [facility] THER/PROPH/DIAG INJ IV PUSH THER/PROPH/DIAG INJ IV PUSH 01/30 12:00:[address] [facility] CHORIONIC GONADOTROPIN ASSAY CHORIONIC GONADOTROPIN ASSAY 12:00:[address] [facility] THROMBOPLASTIN TIME PARTIAL THROMBOPLASTIN TIME PARTIAL 01/30 12:00:[address] [facility] C-REACTIVE PROTEIN C-REACTIVE PROTEIN 02/18/2019 12:00:[address] [facility] ASSAY OF LIPASE ASSAY OF LIPASE 02/18/2019 12:00:[address] [facility] THER/PROPH/DIAG INJ IV PUSH THER/PROPH/DIAG INJ IV PUSH 01/30 12:00:[address] [facility] COMPREHEN METABOLIC PANEL COMPREHEN METABOLIC PANEL 02/18/2019 1 2:00:[address] [facility] ROUTINE VENIPUNCTURE ROUTINE VENIPUNCTURE 02/18/2019 12:00:[address] [facility] EMERGENCY DEPT VISIT EMERGENCY DEPT VISIT 02/18/2019 12:00:[address] [facility] TRANSVAGINAL US NON-OB TRANSVAGINAL US NON-OB 02/18/2019 12:00:[address] [facility] BLOOD COUNT COMPLETE AUTO&AUTO DIFRNTL WBC COUNT COMPLETE CB C W/AUTO DIFF WBC 02/18/2019 12:00:[address] [facility] CT ABD & PELV W/CONTRAST CT ABD & PELV W/CONTRAST 02/18/2019 12:00: [address] [facility] KETOROLAC TROMETHAMINE INJ KETOROLAC TROMETHAMINE INJ 2018 12:00:[address] [facility] ROUTINE VENIPUNCTURE ROUTINE VENIPUNCTURE 02/18/2019 12:00:[address] [facility] ASSAY OF AMYLASE ASSAY OF AMYLASE 02/18/2019 12:00:[address] [facility] COMPREHEN METABOLIC PANEL COMPREHEN METABOLIC PANEL 02/18/2019 1 2:00:[address] [facility] CHORIONIC GONADOTROPIN ASSAY CHORIONIC GONADOTROPIN ASSAY 12:00:[address] [facility] THROMBOPLASTIN TIME PARTIAL THROMBOPLASTIN TIME PARTIAL 01/30 12:00:[address] [facility] TRANSVAGINAL US NON-OB TRANSVAGINAL US NON-OB 02/18/2019 12:00:[address] [facility] EMERGENCY DEPT VISIT EMERGENCY DEPT VISIT 02/18/2019 12:00:[address] [facility] KETOROLAC TROMETHAMINE INJ KETOROLAC TROMETHAMINE INJ 2018 12:00:[address] [facility] ROUTINE VENIPUNCTURE ROUTINE VENIPUNCTURE 02/18/2019 12:00:[address] [facility] THER/PROPH/DIAG INJ IV PUSH THER/PROPH/DIAG INJ IV PUSH 01/30 12:00:[address] [facility] C-REACTIVE PROTEIN C-REACTIVE PROTEIN 02/18/2019 12:00:[address] [facility] BLOOD COUNT COMPLETE AUTO&AUTO DIFRNTL WBC COUNT COMPLETE CB C W/AUTO DIFF WBC 02/18/2019 12:00:[address] [facility] ROUTINE VENIPUNCTURE ROUTINE VENIPUNCTURE 02/18/2019 12:00:[address] [facility] CT ABD & PELV W/CONTRAST CT ABD & PELV W/CONTRAST 02/18/2019 12:00: [address] [facility] ASSAY OF AMYLASE ASSAY OF AMYLASE 02/18/2019 12:00:[address] [facility] ASSAY OF LIPASE ASSAY OF LIPASE 02/18/2019 12:00:[address] [facility] C-REACTIVE PROTEIN C-REACTIVE PROTEIN 02/18/2019 12:00:[address] [facility] ROUTINE VENIPUNCTURE ROUTINE VENIPUNCTURE 02/18/2019 12:00:[address] [facility] THROMBOPLASTIN TIME PARTIAL THROMBOPLASTIN TIME PARTIAL 01/30 12:00:[address] [facility] BLOOD COUNT COMPLETE AUTO&AUTO DIFRNTL WBC COUNT COMPLETE CB C W/AUTO DIFF WBC 02/18/2019 12:00:[address] [facility] EMERGENCY DEPT VISIT EMERGENCY DEPT VISIT 02/18/2019 12:00:[address] [facility] ROUTINE VENIPUNCTURE ROUTINE VENIPUNCTURE 02/18/2019 12:00:[address] [facility] ASSAY OF LIPASE ASSAY OF LIPASE 02/18/2019 12:00:[address] [facility] THER/PROPH/DIAG INJ IV PUSH THER/PROPH/DIAG INJ IV PUSH 01/30 12:00:[address] [facility] ASSAY OF AMYLASE ASSAY OF AMYLASE 02/18/2019 12:00:[address] [facility] CHORIONIC GONADOTROPIN ASSAY CHORIONIC GONADOTROPIN ASSAY 12:00:[address] [facility] COMPREHEN METABOLIC PANEL COMPREHEN METABOLIC PANEL 02/18/2019 1 2:00:[address] [facility] CT ABD & PELV W/CONTRAST CT ABD & PELV W/CONTRAST 02/18/2019 12:00: [address] [facility] TRANSVAGINAL US NON-OB TRANSVAGINAL US NON-OB 02/18/2019 12:00:[address] [facility] KETOROLAC TROMETHAMINE INJ KETOROLAC TROMETHAMINE INJ 2018 12:00:[address] [facility] Results ID Date Data Source [id number] 12/20/2019 04:52:57 PM EDT [facility] Name Value Range Interpretation Code Description Data Arianne rce(s) Supporting Document(s) Progress Note [facility] [id number] lbm [file] [id number] [file] [id number] ID Date Data Source [id number] 11/07/2019 11:33:00 PM EDT [facility] 1 OrderSheet [facility] Emergency Department [address] [place] [address] Phone #: [phone]- [phone] 11/07/2019 23:28 Patient: BERKLEY LOPEZ Sex: F [...] 25 mg M.D.;(NOW x1, HIGH 2 OrderSheet [facility] Emergency Department [address] [place] [address] Phone #: ext- [phone] 11/07/2019 23:28 Patient: BERKLEY LOPEZ Sex: F [...] R.N. (05:11/08/2019)][Electronically locked by Jennifer Oleary R.N. (:11/08/2019)] Name Value Range Interpretation Code Description Data Arianne rce(s) Supporting Document(s) ID Date Data Source [id number] 11/07/2019 11:33:00 PM EDT [facility] 1 Medication Reconciliation Report [facility] Emergency Department [address] [place] [address] Phone #: ext- [phone] 11/07/2019 23:28 Patient: [...] Dispense 14 tablet.Refills: 2. Substitution permitted.Pharmacy - [id number] - [id number], [place] [id number]. . -- Ronda Garcia M.D. Name Value Range Interpretation Code Description Data Arianne rce(s) Supporting Document(s) ID Date Data Source [id number] 11/07/2019 11:33:00 PM EDT [facility] 1 Medication Administration Record [facility] Emergency Department [address] [place] [address] Phone #: ext- [phone] 11/07/2019 23:28 Patient: BERKLEY LOPEZ Sex: F : 2000 Age: 19yWeight: 106.5 kgHeight/Length: 66 inBMI: 37.9ALLERGIES: Penicillins Date/Time Medication Administered Medication OrderedStart NS [IV] NS IV 1000 mL Bolus: : Bolus 548038:[id number] 11/08/2019 Dose: IV Fluids mL (X1)Tanner Hopson RN Rate: 1000 mL/hr---- Bolus: 1000 mLStop Dispensed: 1000 mL bag01:11/08/2019 Site: #2 right upper armTina Lam Hopson R.N.Start PHENERGAN [IVPB] Phenergan IV 25mg in 50mL NS,00:07 11/08/2019 Dose: 25 mg IVPB give wide open: 25 mg (NOW x1,Tanner Hopson RN Rate: 600 mg/hr HIGH ALERT MEDICATION)---- Dispensed: 50 mL bagStop Site: #2 right upper arm00:09 09/09/2020Tanner Hopson RNGiven TORADOL [IVP] (KETOROLAC Toradol 15 mg IVP X1 dose: 15 mg00:11/08/2019 TROMETHAMINE) (NOW x1)Tanner Hopson RN Dose: 15 mg IVP Site: #2 right upper arm Name Value Range Interpretation Code Description Data Arianne rce(s) Supporting Document(s) ID Date Data Source [id number] 11/07/2019 11:33:00 PM EDT [facility] 1 General Instructions [facility] Emergency Department [address] [place] [address] Phone #: ext- [phone] 11/07/2019 23:28 Patient: BERKLEY LOPEZ Sex: F : 2000 Age: 19yPrimary dysmenorrheaINSTRUCTIONSDrink plenty of fluids. Do not smoke. No alcohol.Warnings: Further evaluation is necessary ([employer]). It is very important to follow up [...] Dispense 14 tablet.Refills: 2. Substitution permitted.[facility] [id number] [address], [place] [id number]. .Follow-up:Return to the emergency department as needed. Follow up with your healthcare provider in three even ifwell. Call for an appointment. Reason for referral: evaluation and treatment. Summary of care provided topatient via paper. Follow up with a dinkey driver in three days even if well. Call for an appointment.Reason for referral: evaluation and treatment. Summary of care provided to patient via paper.Understanding of the discharge instructions verbalized by patient. Expected course of illness, dischargeinstructions, activity level, diet, prescriptions x1, follow-up appointment and risks and benefits of treatmentre viewed with patient and understanding verbalized. Agrees to plan of care.Follow- up with: [facility], , , [address], [place], [facility] Follow up in three days even if well. Call for an appointment. Reason for referral: evaluation andtreatment. Summary of care provided to patient via paper. 2 General Instructions [facility] Emergency Department [address] [place] [address] Phone #: ext- [phone] 11/07/2019 23:28 Patient: [...] the uterus (not cancer) 3 General Instructions [facility] Emergency Department [address] [place] [address] Phone #: ext- [phone] 11/07/2019 23:28 Patient: [...] or occurs between periods 4 General Instructions [facility] Emergency Department [address] [place] [address] Phone #: ext- [phone] 11/07/2019 23:28 Patient: BERKLEY LOPEZ Sex: F : 2000 Age: 19y Unusual vaginal discharge between periods Bleeding becomes heavy (soaking more than 1 pad or tampon every hour for 3 hours) Passage of pink or rodriguez tissue from the vagina [phone] [employer]. [address] [place] [address]. All rights reserved. This information is not intended as asubstitute for professional medical care. Always follow your healthcare professional's instructions. You have been given the following additional information: Painful Menstrual Periods (Dysmenorrhea)(Electronically signed by Ronda Garcia M.D. 11/08/2019 01:27) Name Value Range Interpretation Code Description Data Arianne rce(s) Supporting Document(s) ID Date Data Source [id number] 11/07/2019 11:33:00 PM EDT [facility] 1 Clinical Report - Nurses [facility] Emergency Department [address] [place] [address] Phone #: ext- [phone] 11/07/2019 23:28 Patient: BERKLEY LOPEZ Sex: F : 2000 Age: 19yTRIAGEArrived by private vehicle. Historian: patient.Triage time: 23:30 11/07/2019.Chief Complaint: PELVIC PAIN and VAGINAL BLEED.Onset. (3 days ago). ( Seen at [facility] for same, spotting this morning. This afternoon she noticed it gettingworse. Was dizzy when watching TV tonight. States that she went through 4 pads today, and has a"couple" golf ball sized clots before. Has PCOS, so her periods are irregular. States that she called margarethhas not scheduled a STRATEGIC ACCOUNT MANAGER follow up yet.). ( Has had 3 [...] SURGERIES:.Knee Surgery. 2 Clinical Report - Nurses [facility] Emergency Department [address] [place] [address] Phone #: ext- [phone] 11/07/2019 23:28 Patient: [...] site #2 3 Clinical Report - Nurses [facility] Emergency Department [address] [place] [address] Phone #: ext- [phone] 11/07/2019 23:28 Patient: BERKLEY LOPEZ Sex: F [...] Patient verbalized understanding. Written instructions provided in Mexican. The patient was discharged by the physician. She was discharged home. She left ambulatory and via private vehicle. Parent driving. --01:16 11/08/19 Jennifer Hopson R.N. 01:13 11/08/19. BP: 122/81. MAP: 94. HR: 88. RR: 16. O2 saturation: 99%. Temp: 98 F. Pain level now: 05/08. --01:11/08/19 Jennifer Hopson R.N. Departure time: 01:11/08/2019. --01:11/08/19 Jennifer Hopson R.N. 4 Clinical Report - Nurses [facility] Emergency Department [address] [place] [address] Phone #: nex- [phone] 11/07/2019 23:28 Patient: BERKLEY LOPEZ Sex: F : 2000 Age: 19yLocked/Released at 11/08/2019 05:05 by Jennifer Hopson R.N. Name Value Range Interpretation Code Description Data Arianne rce(s) Supporting Document(s) ID Date Data Source [id number] 11/07/2019 11:33:00 PM EDT [facility] 1 Clinical Report - Physicians/Mid Levels [facility] Emergency Department [address] [place] [address] Phone #: ext- [phone] 11/07/2019 23:28 Patient: [...] or hematuria. 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 Similar symptoms previously. Patient has had similar symptoms occasionally. Recent medical care: The patient was seen recently at another facility in the emergency department. ( seen at [facility] 2 days ago for passing blood [...] Medications: 2 Clinical Report - Physicians/Mid Levels [facility] Emergency Department [address] [place] [address] Phone #: ext- [phone] 11/07/2019 23:28 Patient: BERKLEY LOPEZ Sex: F [...] 36.0) 3 Clinical Report - Physicians/Mid Levels [facility] Emergency Department [address] [place] [address] Phone #: ext- [phone] 11/07/2019 23:28 Patient: [...] Male GFR Interprentation 20-49 yrs >60 mL/min Ulpgto62-07 yrs >56 mL/min Normal 60-69 yrs >49 mL/min Normal 70-79yrs>42 mL/min Normal 80 and above >35 mL/min Normal Female GFRInterpretation 20-39 yrs >60 mL/min Normal 40-49 yrs >58 mL/minNormal 50-59 yrs >51 mL/min Normal 60-69 yrs >45 mL/min Fdkknt49-88 yrs >39 mL/min Normal 80 and above >32 mL/min NormalLipase: (DEBBI: 11/07/2019 23:37) [facility] 11/08/[facility]17) Final results Test Result Flag Units (Reference) 4 Clinical Report - Physicians/Mid Levels [facility] Emergency Department [address] [place] [address] Phone #: ext- [phone] 11/07/2019 23:28 Patient: BERKLEY LOPEZ Sex: F : 2000 Age: 19y LIPASE 30 U/L (13 - 60) Beta-HCG, Qual Serum: (DEBBI: 11/07/2019 23:37) ( [facility] 11/08/2019 00:22) Final results Test Result Flag Units (Reference) HCG SERUM QUAL NEGATIVE (NORMAL: NEGAT HCG SERUM QL REENTER NEGATIVE (NORMAL: NEGAT { KIT LOT # [id number] ){ KIT EXP DATE 12/11/20 ){ PROCEDURAL CONTROL VALID ) Lactic Acid: (DEBBI: 11/07/2019 23:37) ( [facility] 11/08/2019 00:03) Final results Test Result Flag Units (Reference) LACTIC ACID 2.0 MMOL/L (0.2 - 2.2).PROGRESS AND PROCEDURESCourse of Care: 01:09 11/08/19. pt has nml speculum exam, no bleeding whatsoever; workup all in andnml, not ; probable dysmenorrhea; will refer her to TRUST VAULT CUSTODIAN; d/c instructions given. Patient counseled in person [...] No alcohol. Warnings: Further evaluation is necessary (TRUST VAULT CUSTODIAN). It is very important to follow up [...] worsens. 5 Clinical Report - Physicians/Mid Levels [facility] Emergency Department [address] [place] [address] Phone #: ext- [phone] 11/07/2019 23:28 Patient: BERKLEY LOPEZ Sex: F [...] tablet. Refills: 2. Substitution permitted. Pharmacy - [facility] #[id number] - [address], [place] [id number]. . Follow-up: Return to the emergency department as needed. Follow up with your healthcare provider in three even if well. Call for an appointment. Reason for referral: evaluation and treatment. Summary of care provided to patient via pap er. Follow up with a dinkey driver in three days even if well. Call [...] Agrees to plan of care. Follow-up with: [facility], , , [address] [place] [address], [place], [place], [facility] Follow up in three days even if well. Call for an appointment. Reason for referral: evaluation and treatment. Summary of care provided to patient via paper.(Electronically signed by Ronda Garcia M.D. 11/08/2019 01:27) Name Value Range Interpretation Code Description Data Arianne rce(s) Supporting Document(s) ID Date Data Source [id number] 11/08/2019 12:22:00 AM EDT [facility] Name Value Range Interpretation Code Description Data Arianne rce(s) Supporting Document(s) HCG SERUM QUAL NEGATIVE NORMAL: NEGATIVE [facility] HCG SERUM QL REENTER NEGATIVE NORMAL: NEGATIVE [facility] { KIT LOT # [id number] ){ KIT EXP DATE 12/11/20 ){ PROCEDURAL CONTROL VALID ) ID Date Data Source [id number] 11/08/2019 12:19:00 AM EDT [facility] Name Value Range Interpretation Code Description Data [facility] rce(s) Supporting Document(s) CBC W/AUTOMATED DIFF [facility] COMPLETE BLOOD COUNT Leukocytes [#/volume] in Blood by Automated count 12.9 10^3/uL 4.2 - 11.0 H [facility] Erythrocytes [#/volume] in Blood by Automated count 4.69 10^6/uL 4. 20 - 5.40 [facility] Hemoglobin [Mass/volume] in Blood 13.2 g/dL 12.0 - 16.0 [facility] Hematocrit [Volume Fraction] of Blood by Automated count 39.7 % 3 7.0 - 47.0 [facility] Erythrocyte mean corpuscular volume [Entitic volume] by Auto mated count 84.6 fL 81.0 - 101 [facility] Erythrocyte mean corpuscular hemoglobin [Entitic mass] by Automated count 28.1 pg 27.0 - 34.0 [facility] Erythrocyte mean corpuscular hemoglobin concentration [Mass/volume] by Automated count 33.2 g/dL 31.0 - 36.0 [facility] Erythrocyte distribution width [Ratio] by Automated count 12.9 % 11.5 - 14.5 [facility] Platelets [#/volume] in Blood by Automated count 289 10^3/uL 150 - 45 0 [facility] Platelet mean volume [Entitic volume] in Blood by Automated count 11.2 fL 7.4 - 10.4 H [facility] Neutrophils/100 leukocytes in Blood by Automated count 53.0 % 37. 0 - 80.0 [facility] Lymphocytes/100 leukocytes in Blood by Manual count 34.8 % 25.0 - 40.0 [facility] Monocytes/100 leukocytes in Blood by Automated count 8.1 % 3.0 - 8.0 H [facility] Eosinophils/100 leukocytes in Blood by Automated count 2.9 % 0.0 - 7.0 [facility] Basophils/100 leukocytes in Blood by Automated count 0.8 % 0.0 - 2.5 [facility] %IG 0.4 % 0.0 - 0.0 H [facility] al %NRBC 0.0 % 0.0 - 0.0 [facility] al Neutrophils [#/volume] in Blood by Automated count 6.85 10^3/uL 2.00 - 6.90 [facility] Lymphocytes [#/volume] in Blood by Automated count 4.49 10^3/uL 0.60 - 3.40 H [facility] Monocytes [#/volume] in Blood by Automated count 1.04 10^3/uL 0.00 - 0.90 H [facility] Eosinophils [#/volume] in Blood by Automated count 0.38 10^3/uL 0.00 - 0.70 [facility] Basophils [#/volume] in Blood by Automated count 0.10 10^3/uL 0.00 - 0.20 [facility] #IG 0.05 10^3/uL 0.00 - 0.10 [facility] H ospital #NRBC 0.00 10^3/uL 0.00 - 0.00 [facility] ospital MANUAL DIFF SEE BELOW [facility] ital Segmented neutrophils/100 leukocytes in Blood by Manual count 51 % 37 - 80 [facility] %LYMPH 42 % 25 - 40 [facility] %MONO 2 % 3 - 8 L [facility] al %EOS 5 % 0 - 7 [facility] al RBC MORPH NOT INDICATED [facility] Ho spital ID Date Data Source [id number] 11/08/2019 12:16:00 AM EDT [facility] Name Value Range Interpretation Code Description Data Arianne rce(s) Supporting Document(s) Lipase [Enzymatic activity/volume] in Serum or Plasma 30 U/L 13 - 60 [facility] ID Date Data Source [id number] 11/08/2019 12:16:00 AM EDT [facility] Name Value Range Interpretation Code Description Data Arianne rce(s) Supporting Document(s) COMPREHENSIVE METABOLIC PANEL [facility] COMPREHENSIVE METABOLIC PANEL Sodium [Moles/volume] in Serum or Plasma 141 mEq/L 134 - 153 [facility] Potassium [Moles/volume] in Serum or Plasma 4.0 mEq/L 3.6 - 5.0 [facility] Chloride [Moles/volume] in Serum or Plasma 105 mEq/L 98 - 107 [facility] Carbon dioxide, total [Moles/volume] in Serum or Plasma 24 MEQ/L 22 - 30 [facility] Glucose [Mass/volume] in Serum or Plasma 87 MG/DL 65 - 110 [facility] BUN 8 MG/DL 7 - 21 [facility] al Creatinine [Mass/volume] in Serum or Plasma 0.7 MG/DL 0.7 - 1.5 [facility] BUN/CREAT 11 8 - 27 [facility] al Protein [Mass/volume] in Serum or Plasma 6.9 G/DL 6.3 - 8.2 [facility] Albumin [Mass/volume] in Serum or Plasma 4.7 G/DL 3.9 - 5.0 [facility] Globulin [Mass/volume] in Serum by calculation 2.2 GM/DL 2.4 - 3.2 L [facility] A/G RATIO 2.1 0.8 - 2.0 H [facility] Calcium [Mass/volume] in Serum or Plasma 9.7 MG/DL 8.4 - 10.2 [facility] Bilirubin.total [Mass/volume] in Serum or Plasma <0.7 MG/DL 0.2 - 1.3 [facility] Alkaline phosphatase [Enzymatic activity/volume] in Serum or Plasma 102 U/L 38 - 126 [facility] Aspartate aminotransferase [Enzymatic activity/volume] in Serum or Plasma 19 U/L 5 - 40 [facility] Alanine aminotransferase [Enzymatic activity/volume] in Seru m or Plasma 22 U/L 7 - 56 [facility] Anion gap 3 in Serum or Plasma 12.0 mmol/L 8.0 - 16.0 [facility] AGE 19 yrs [facility] al NON-AA GFR >60 mL/min [facility] ital AFR AMER GFR >60 mL/min [facility] [...] >32 mL/min Normal ID Date Data Source [id number] 11/08/2019 12:03:00 AM EDT [facility] Name Value Range Interpretation Code Description Data Arianne rce(s) Supporting Document(s) Lactate [Moles/volume] in Serum or Plasma 2.0 MMOL/L 0.2 - 2.2 [facility] ID Date Data Source [id number] 07/20/2019 06:38:00 PM EDT [facility] [id number], [id number],[id number], [id number],[id number], [id number],[id number],[id number], Name Value Range Interpretation Code Description Data Arianne rce(s) Supporting Document(s) IMMAT. GRAN% 0.0-0.5 Normal (applies to non-numeric res ults) [facility] ID Date Data Source 07/20/2019 06:38:00 PM EDT [facility] [id number],[id number], [id number],[id number],430918, [id number],[id number],625150, B83,[id number],139208, Name Value Range Interpretation Code Description Data Arianne rce(s) Supporting Document(s) ABSOLUTE IMMATURE GRAN 0.00-0.40 Normal (applies to non-n umeric results) [facility] ID Date Data Source 07/20/2019 06:50:00 PM EDT [facility] [id number],[id number], [id number],[id number],274404, B83,[id number],417971, [id number],[id number],441529, Name Value Range Interpretation Code Description Data Arianne rce(s) Supporting Document(s) EGFR - NON- Normal (applies to non-numeric results) [facility] >60 mL/min/1.73 EGFR - Normal (applies to non- numeric results) [facility] >60 mL/min/1.73 Potential Chronic Kidne y Disease: <60ml/min/1.73sq meters Kidney Failure: <15ml/min/1.73sq meters ID Date Data Source 07/20/2019 06:45:00 PM EDT [facility] [id number], [id number],[id number],613157, [id number],[id number],958890, B83,[id number],594409, Name Value Range Interpretation Code Description Data Arianne rce(s) Supporting Document(s) URINE RBC 0-2 Above high normal [facility] URINE WBC 0-2 Abnormal (applies to non-numeric res ults) [facility] BACTERIA FEW Abnormal (applies to non-numeric res ults) [facility] BUDDING YEAST [facility] URINE SQUAMOUS EPI [facility] MUCOUS [facility] HYALINE CASTS [facility] CALCIUM OXALATE CRYSTALS PRESENT [facility] ID Date Data Source [id number] 07/20/2019 06:50:00 PM EDT [facility] [id number],[id number], Name Value Range Interpretation Code Description Data Arianne rce(s) Supporting Document(s) LIPASE Normal (applies to non-numeric results) [facility] <300 ID Date Data Source [id number] 07/20/2019 06:50:00 PM EDT [facility] [id number],[id number], Name Value Range Interpretation Code Description Data Arianne rce(s) Supporting Document(s) SODIUM 135-146 Normal (applies to non-numeric resul ts) [facility] POTASSIUM 3.5-5.3 Normal (applies to non-numeric resul ts) [facility] CHLORIDE 98-107 Above high normal [facility] CARBON DIOXIDE 21-32 Below low normal [facility] ANION GAP 5-15 Normal (applies to non-numeric resul ts) [facility] GLUCOSE 65-99 Above high normal [facility] Reference Ranges: Normal Fasting Glucose ........65-99 MG/DL Pre-Diabetes ......100-125 MG/DL Provisional Diagnosis of Diabetes .........>125 MG/DL BUN 7-23 Normal (applies to non-numeric results) [facility] CREATININE 0.5-1.0 Normal (applies to non-numeric resul ts) [facility] BUN/CREAT RATIO [facility] CALCIUM 8.4-10.4 Normal (applies to non-numeric resul ts) [facility] TOTAL PROTEIN 6.3-8.2 Normal (applies to non-numeric re sults) [facility] ALBUMIN 3.5-5.0 Normal (applies to non-numeric resul ts) [facility] ALB/GLOB RATIO 1.1-1.8 Normal (applies to non-numeric r esults) [facility] BILIRUBIN, TOTAL 0.0-1.3 Normal (applies to non-numeric results) [facility] ALK PHOSPHATASE 38-126 Normal (applies to non-numeric results) [facility] AST (SGOT) Normal (applies to non-numeric results) [facility] <59 ALT (SGPT) 0-34 Normal (applies to non-numeric resul ts) [facility] Reference Range:Females <35Males <50 ID Date Data Source [id number] 07/20/2019 06:38:00 PM EDT [facility] [id number], Name Value Range Interpretation Code Description Data Arianne rce(s) Supporting Document(s) WBC 4.0-10.5 Above high normal [facility] RBC 4.00-5.20 Above high normal [facility] HEMOGLOBIN 12.2-15.5 Normal (applies to non-numeric resul ts) [facility] HEMATOCRIT 35.0-47.0 Normal (applies to non-numeric resul ts) [facility] MCV 77.0-100.0 Normal (applies to non-numeric resul ts) [facility] MCH 25.0-33.0 Normal (applies to non-numeric resul ts) [facility] MCHC 31.0-36.0 Normal (applies to non-numeric resul ts) [facility] RDW 12.0-17.0 Normal (applies to non-numeric resul ts) [facility] PLATELET COUNT 125-425 Normal (applies to non-numeric r esults) [facility] MPV 8.0-12.0 Normal (applies to non-numeric results) [facility] ABSOLUTE NEUT 1.4-8.4 Normal (applies to non-numeric re sults) [facility] ABSOLUTE LYMPH 1.0-4.0 Normal (applies to non-numeric r esults) [facility] ABSOLUTE MONO 0.0-1.5 Normal (applies to non-numeric re sults) [facility] ABSOLUTE EOS 0.0-0.7 Normal (applies to non-numeric res ults) [facility] ABSOLUTE BASO 0.0-0.1 Normal (applies to non-numeric re sults) [facility] NEUT% 35.0-75.0 Normal (applies to non-numeric resul ts) [facility] LYMPH% 20.0-42.0 Normal (applies to non-numeric resul ts) [facility] MONO% 0.0-15.0 Normal (applies to non-numeric resul ts) [facility] EOS% 0.0-10.0 Normal (applies to non-numeric resul ts) [facility] BASO% 0.0-2.0 Normal (applies to non-numeric resul ts) [facility] ID Date Data Source MA 07/22/2019 07:40:00 AM EDT [facility] Name Value Range Interpretation Code Description Data Arianne rce(s) Supporting Document(s) CLEAN VOIDED URINE CULT [facility] [id number], Name: BERKLEY LOPEZ Citlaly Littlejohn: 2000 Sex: [place]# Loc Src Site [id number] VSLAB URNC 07/20/19 CLEAN VOIDED URINE CULT FINAL <10,000 CFU/mL NOA SUGGESTIVE OF UROGENITAL SKIN CONTAMINATIONKEY FOR RESULTS: - NEW RESULTATT.PHYS.: DINORAH DOOLEY LOCATION: [facility]--ADM.DATE: 07/20/19 PATIENT : BERKLEY LOPEZ MICROBIOLOGYPRINTED: 07/22/19 07:40 REGULAR 2 PAGE: 2 of 1 1 ID Date Data Source [id number] 07/20/2019 06:41:00 PM EDT [facility] [id number], Name Value Range Interpretation Code Description Data Arianne rce(s) Supporting Document(s) URINE COLOR YELLOW Normal (applies to non-numeric resu lts) [facility] URINE APPEARANCE CLEAR Normal (applies to non-numeric results) [facility] UR SPECIFIC GRAV 1.005-1.030 Normal (applies to non-numeri c results) [facility] URINE PH 5.0-7.5 Normal (applies to non-numeric resul ts) [facility] URINE LEUKOCYTE LARGE NEGATIVE Abnormal (applies to non-numeri c results) [facility] URINE NITRITE NEGATIVE NEGATIVE Normal (applies to non-numeric re sults) [facility] URINE PROTEIN TRACE MG/DL NEGATIVE Normal (applies to non-numeric r esults) [facility] URINE GLUCOSE NORMAL MG/DL NORMAL Normal (applies to non-numeric results) [facility] URINE KETONES TRACE MG/DL NEGATIVE Normal (applies to non-numeric r esults) [facility] UR UROBILINOGEN NORMAL MG/DL Normal (applies to non-numeri c results) [facility] NORMAL URINE BILIRUBIN NEGATIVE MG/DL NEGATIVE Normal (applies to non- numeric results) [facility] URINE OCCULT BLD NEGATIVE NEGATIVE Normal (applies to non-numeric results) [facility] URINE MICROSCOPIC INDICATED Abnormal (applies to non-nume ramone results) [facility] URINE C-S REQUEST see below [facility] SPECIMEN SENT TO MICROBIOLOGY ID Date Data Source [id number] 06/29/2019 02:10:[address] [facility] EXAM:XR KNEE 3 VIEWS LEFT ORDERING PROVI [...] Thank you for referring your patient to [facility]. Name Value Range Interpretation Code Description Data Arianne rce(s) Supporting Document(s) ID Date Data Source [id number] 06/18/2019 08:11:00 PM EDT [facility] PROCEDURE: ABDOMEN, 2 VIEW X-RAY ORD#:[id number] DATE: 06/18/2019 19:02 ACC#: [id number]:PROCEDURE: ABDOMEN, 2 VIEW X-RAYDATE AND TIME: 06/18/2019 7:02 PM EDTHISTORY: *Pain. Constipation. Abdominal pain.COMPARISON: NoneTECHNIQUE: 3 frontal views of the abdomen.-IMPRESSION: Nonspecific, nonobstructive bowel gas pattern. No gross free air. Large amount of stool scattered within the colon and likely the rectum. Scattered air within the colon.Lung bases are clear. No abnormal calcifications. No acute osseous abnormality is identified.DWS: [id number] CUMULATIVE S RADIOLOGY FLUOROSCOPY TIME SINCE 07/30/2009: 0 sec (=0.00 min)EXAM DATE: 06/18/2019 19:02 ORDERED BY:JOSE MCKEE PACS IMAGES READ BY: KAYLA SCOTTIGNED 06/18/2019 20:09 BY KAYLA GODINEZ MD [facility] ACC#: [id number] Name Value Range Interpretation Code Description Data Arianne rce(s) Supporting Document(s) ID Date Data Source [id number] 05/26/2019 02:33:[address] [facility] BERKLEY LOPEZ LPATIENT IDENTIFICATION :Practice Site: [facility] Name: BERKLEY LOPEZ LMedical Record Number: [id number] Of : 2000CHIEF COMPLAINT:patient here for c/o [...] strained her back. She has been lifting [id number] whois about 15 pounds. She has been [...] 4 mg = 1 tab(s), PRN, SubLINGUAL, [id number] EXAM:VITALS:T: 37 C (Tympanic) T: 98.6 F [...] (04/27/19)COAGULATIOND-Dimer: 450 ng/mL FEU (04/27/19)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 Spec Type: DIRECTOR METABOLISM Swab (05/12/19)Influenza A: Negative (05/12/19)Influenza B: Negative [...] severe pain or any other severe/emergentsymptoms-go to [id number].Ordered:naproxen, 500 mg = 1 tab(s), PO (oral), bid, PRN Pain, # 30 tab(s),Maintenance, Pharmacy: [facility] #[id number], 1 tab(s) PO (oral) bid,PRN:PainPOC Urine Dipstick (Clinic) 2. Low grade fever UA is essentially negative and no urinary symptoms. Patient declined urineculture. No fever inclinic.Ordered:naproxen, 500 mg = 1 tab(s), PO (oral), bid, PRN Pain, # 30 tab(s),Maintenance, Pharmacy: [facility]/pharmacy #[id number], 1 tab(s) PO (oral) bid,PRN:PainPOC Urine [...] EmergencyRoom or call 911.Thank you for choosing [facility]. We hope you [...] othersevere/emergent symptoms-go toER/call 911. With: DINORAH DOOLEYAddress: [facility] [address] [place] [id number]; This document was authenticated by Desiree Christina FNP DIRECTOR TRANSLATION on 05/26/201902:33 PM Name Value Range Interpretation Code Description Data Arianne rce(s) Supporting Document(s) ID Date Data Source [id number] 05/16/2019 07:37:[address] 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 - [facility] EXAM:XR KNEE 3 VIEWS LEFTORDERING PROVID [...] Thank you for referring your patient to [facility]. Name Value Range Interpretation Code Description Data [facility] rce(s) Supporting Document(s) ID Date Data Source [id number] 05/13/2019 05:32:[address] - [facility] LOPEZBERKLEY LHISTORY SOURCE:Patient , mother, nurse's notes [...] shortness of breath. [facility] and has notbeen exposed to anyone with [...] 4 mg = 1 tab(s), PRN, SubLINGUAL, [id number] ODT 4 mg oral tablet, disintegrating 4 [...] Virology LATEST RESULTS HISTORICALRESULTSInflu Spec Type 05/12/19 DIRECTOR METABOLISM Swab 04/20/18NP Swab 14:17 Influenza A 05/12/19 [...] of each breast. OVERALL FINAL ASSESSMENTAssessment ACR [id number] 2: Benign Findings. RECOMMENDATIONNormal screening recommended according to [employer] guidelines. This document has been authenticated by Harrison Molina MD on 05/01/2019 9:10AM.Thank you for referring your patient to [facility]. Signed By: Jesse LINARES, Harrison [...] PM.Thank you for referring your patient to [facility]. Signed By: José Ma XR [...] Thank you for referring your patient to [facility]. Signed By: WILFREDO [...] PM.Thank you for referring your patient to [facility]. Signed By: Kit Lerma MD [...] PM.Thank you for referring your patient to [facility]. Signed By: Chidi Brody MD [...] Thank you for referring your patient to [facility]. Signed By: WILFREDO [...] rce(s) Supporting Document(s) ID Date Data Source [id number] 05/12/2019 02:39:[address] - [facility] Name Value Range Interpretation Code Description Data Arianne rce(s) Supporting Document(s) RSV Screen Negative [facility] Krishna lorraine - [facility] Respiratory Syncytial Virus Screening is performed by Nucleic Acid Amplification Testing (NAAT). ID Date Data Source [id number] 05/12/2019 02:39:[address] - [facility] Name Value Range Interpretation Code Description Data Arianne rce(s) Supporting Document(s) Influenza A Negative [facility] rddallin - [facility] Rapid Influenza testing performed by Nuc leic Acid Amplification Testing (NAAT) Influenza B Negative [facility] rddallin - [facility] Influ Spec Type [facility] - [facility] ID Date Data Source [id number] 05/12/2019 02:27:[address] - [facility] Name Value Range Interpretation Code Description Data Arianne rce(s) Supporting Document(s) Rapid Grp A Neg [facility] - [facility] Added on by Discern Audit Strep A Neg cmt [facility] - [facility] ID Date Data Source [id number] 05/12/2019 02:27:[address] - [facility] Name Value Range Interpretation Code Description Data Arianne rce(s) Supporting Document(s) Rapid Grp A Strep, Throat Negative [facility] Rapid Group A Streptococcus Screen is pe rformed by Enzyme Immunoassay. ID Date Data Source [id number] 05/12/2019 01:42:[address] fl[facility] - [facility] EXAM:US EXTREMITY VENOUS LOWER LEFTORDER ING [...] Thank you for referring your patient to [facility]. Name Value Range Interpretation Code Description Data Arianne rce(s) Supporting Document(s) ID Date Data Source [id number] 05/01/2019 09:12:[address] EXAM: US BREAST BILATORDERING PROVIDER:Madhavi Montero [...] appearance of each breast.OVERALL FINAL ASSESSMENTAssessment ACR [id number] 2: Benign Findings.RECOMMENDATIONNormal screening recommended according to [employer] guidelines.This document has been authenticated by Harrison Molina MD on 05/01/2019 9:10AM. Thank you for referring your patient to [facility]. Name Value Range Interpretation Code Description Data Arianne rce(s) Supporting Document(s) ID Date Data Source [id number] 04/27/2019 05:09:[address] - [facility] BERKLEY LOPEZ [facility] SOURCE:Patient , previous charts reviewed, nurses [...] 1.9 201.3 14:03 Basophils, auto 04/27/19 1.0 .7 14:03 COAGULATION LATEST RESULTS HISTORICALRESULTSD-Dimer 04/27/19 450 [...] PM.Thank you for referring your patient to [facility]. Signed By: José [...] rce(s) Supporting Document(s) ID Date Data Source [id number] 04/27/2019 02:53:[address] - [facility] EXAM:XR CHEST 2 VIEWSORDERING PROVIDER:Kathy MckennaCLINICAL HISTORY:Chest pain.COMPARISON STUDY:12/02/2018.TECHNIQUE:2 views.FINDINGS:The heart is normal in size. No focal pulmonary abnormality is identified.The bones and soft tissues are unremarkable.IMPRESSION: No evidence of acute pulmonary disease.This document has been authenticated by José Ma MD on 04/27/2019 2:51PM. Thank you for referring your patient to [facility]. Name Value Range Interpretation Code Description Data Arianne rce(s) Supporting Document(s) ID Date Data Source [id number] 04/27/2019 04:17:[address] - [facility] Name Value Range Interpretation Code Description Data Arianne rce(s) Supporting Document(s) D-Dimer 450 ng/mL FEU <=499 [facility] * Diagnosis should not be based solely o n the results of this test.Results should be interpreted in conjunction with clinical findings.Negative Predictive Value for thromboembolism for D-Dimer test results below the cut off of 500 ng/ml FEU is 98%. ID Date Data Source [id number] 04/27/2019 02:39:[address] - [facility] Name Value Range Interpretation Code Description Data Arianne rce(s) Supporting Document(s) Serum Qualitative Negative [facility] ID Date Data Source [id number] 04/27/2019 02:26:[address] - [facility] Name Value Range Interpretation Code Description Data Arianne rce(s) Supporting Document(s) GFR-KIEL >60 mL/min/1.73m2 >=60 [facility] eGFR added on by Discern Expert.* GFR-NA A has been calculated for Non- Americans, GFR-AA has been calculated for Americans. They are based on the standardized IDHI creatinine value and do not include the [...] - [facility] ID Date Data Source [id number] 04/27/2019 02:26:[address] [facility] - [facility] Name Value Range Interpretation Code Description Data Arianne rce(s) Supporting Document(s) Troponin-I <0.02 ng/mL <=0.04 [facility]ja rddallin - [facility] Normal: <0.04 ng/mLIschemic disease: 0.04-0.10 ng/mLConsistent with AMI: > 0.10 ng/mLPatients taking Biotin supplements in excess of the daily recommended allowance, may have falsely elevated results due to interference of Biotin in the assay measurement. ID Date Data Source [id number] 04/27/2019 02:26:[address] [facility] - [facility] Name Value Range Interpretation Code Description Data Arianne rce(s) Supporting Document(s) Sodium Level 140 mmol/L 136-144 [facility] Lo urdes - [facility] Potassium Level 3.9 mmol/L 3.6-5.1 [facility] - [facility] Chloride 111 mmol/L 98-110 Above high normal [facility] CO2 20 mmol/L 22-32 Below low normal [facility] AGAP 9 mEq/L 4-14 [facility]our lorraine - [facility] Glucose Level. 114 mg/dL 65-100 Above high normal [facility] - [facility] If patient is taking either of these dominguez gs, there has been a bias identified:Sulfasalazine may cause falsely decreased resultsSulfaspyridine may cause falsely increased results BUN 11 mg/dL 8-23 [facility] lorraine - [facility] Creatinine 0.67 mg/dL 0.40-1.10 [facility]our lorraine - [facility] Calcium 9.2 mg/dL 8.5-10.5 [facility] Lour lorraine - [facility] Total Protein 7.6 gm/dL 6.4-8.2 [facility] L ourlorraine - [facility] Globulin 3.6 gm/dL 1.5-3.8 [facility] Lour lorraine - [facility] Albumin Level 4.0 gm/dL 3.3-4.8 [facility] L ourlorraine - [facility] Bilirubin Total. 0.1 mg/dL 0.2-1.0 Below low normal [facility] Sarah - [facility] AST 12 unit/L 15-41 Below low normal [facility] If patient is taking either of these dominguez gs, there has been a bias identified:Sulfasalazine may cause falsely decreased resultsSulfaspyridine may cause falsely decreased results Alk Phos 88 unit/L 45-117 [facility] lorraine - [facility] ALT 28 unit/L 14-54 [facility]our lorraine - [facility] If patient is taking either of these dominguez gs, there has been a bias identified:Sulfasalazine may cause falsely decreased resultsSulfaspyridine may cause falsely decreased results ID Date Data Source [id number] 04/27/2019 02:07:[address] - [facility] Name Value Range Interpretation Code Description Data Arianne rce(s) Supporting Document(s) WBC 8.3 K/uL 4.0-10.0 [facility] lorraine - [facility] RBC 4.80 Million/mcL 4.20-5.40 [facility] Hgb 13.3 gm/dL 12.0-16.0 [facility] Lour lorraine - [facility] Hct 39.7 % 36.0-47.0 [facility]our lorraine - [facility] MCV 82.7 fL 82.0-98.0 [facility]our lorraine - [facility] MCH 27.8 pg 26.0-33.0 [facility] lorraine - [facility] MCHC 33.6 gm/dL 32.0-36.0 [facility] lorraine - [facility] RDW 13.8 % 11.4-14.4 [facility] l[facility]raine - [facility] Platelet 314 K/mcL 150-400 [facility]our lorraine - [facility] MPV 8.9 fL 7.4-10.4 [facility] Lour lorraine - [facility] ID Date Data Source [id number] 04/27/2019 02:07:[address] - [facility] Name Value Range Interpretation Code Description Data Arianne rce(s) Supporting Document(s) Neutrophils, auto 54.2 % 40.0-80.0 [facility] Neutrophils, absolute 4.5 K/mcL 1.5-7.7 [facility] - [facility] Lymphocytes, auto 35.8 % 15.0-40.0 [facility] Lymphocytes, absolute 3.0 K/mcL 1.5-4.0 [facility] - [facility] Monocytes, auto 7.1 % 0.0-12.0 [facility] - [facility] Monocytes, absolute 0.6 K/mcL 0.2-1.0 [facility] - [facility] Eosinophils, auto 1.9 % 0.0-5.0 [facility] Eosinophils, absolute 0.2 K/mcL 0.0-0.3 [facility] - [facility] Basophils, auto 1.0 % 0.0-2.0 [facility] - [facility] Basophils, absolute 0.1 K/mcL 0.0-0.1 [facility] - [facility] ID Date Data Source [id number] 04/24/2019 10:34:[address] [facility] - [facility] EXAM:XR KNEE 1 OR 2 VIEWS [...] Thank you for [facility] your [facility]. Name Value Range Interpretation Code Description Data Arianne rce(s) Supporting Document(s) ID Date Data Source [id number] 04/10/2019 03:08:[address] - [facility] BERKLEY LOPEZ [facility] is a pleasant pat ient of [...] prepped with chlorhexidine 1%. Using ultrasound assistance, [id number] Tuohy epiduralneedle was inserted towards the adductor [...] rce(s) Supporting Document(s) ID Date Data Source [id number] 04/10/2019 03:02:[address] [place] ABBOTT LREPORT OF OPERATION DA TE OF [...] limb was e xsanguinated with Esmarch andtourniquet [id number] mmHg. I then began with a standard [...] DRAINS/PACKS:none This operative report was dictated using SPO software. Every attempt tocorrect verbalinaccuracies have been made.This document was authenticated by Salma Alvarado MD MD on04/10/2019 03:02 PM Name Value Range Interpretation Code Description Data Arianne rce(s) Supporting Document(s) ID Date Data Source [id number] 04/10/2019 02:41:[address] [facility] fl[facility] - [facility] EXAM:XR KNEE 1 OR 2 VIEWS LEFTORDERING P ROVIDER:MD Salma Alvarado MDCLINICAL HISTORY:Intraoperative fluoroscopy.COMPARISON STUDY:None.TECHNIQUE:4 images. 58 seconds of fluoroscopy.FINDINGS: Fluoroscopic documentation of procedure without radiologist present. Pleasesee the operative report.IMPRESSION: Intraoperative fluoroscopy This document has been authenticated by José Ma MD on 04/10/2019 2:39PM. Thank you for referring your patient to [facility]. Name Value Range Interpretation Code Description Data [facility] rce(s) Supporting Document(s) ID Date Data Source [id number] 04/10/2019 08:12:[address] flore[facility] - [facility] Name Value Range Interpretation Code Description Data [facility] rce(s) Supporting Document(s) Finger Stick Blood Sugar 95 mg/dL 65-100 [facility] - [facility] The POC Glucose meter technical range is 30 - 550 mg/dLA glucose less than 30 mg/dLwill chart as CORBY glucose greater than 550 mg/dL will display as HI ID Date Data Source [id number] 04/03/2019 04:39:[address] fl[facility] - [facility] BERKLEY LOPEZ LHISTORY SOURCE:Patient and nurse's notes reviewedCHIEF COMPLAINT:Pt reports left lower abdominal pain, vomiting blood tinged fluids, and unableto urinate [id number] last night. Pt reports hx of urinary [...] appropriate.LAB RESULTS:CBC LATEST RESULTS HISTORICALRESULTSWBC 04/03/19 8.1 196.6 12:55 RBC 04/03/19 4.84 .50 12:55 Hgb [...] 04/03/19 Clear 11/28/18Cloudy Abnormal 14:01 UA Specific [place] 04/03/19 1.027 High .029 High 14:01 UA [...] PM.Thank you for referring your patient to [facility]. Signed By: Abdi [...] rce(s) Supporting Document(s) ID Date Data Source [id number] 04/03/2019 02:24:[address] fl[facility] - [facility] EXAM:Noncontrast CT of the abdomen and p [...] Thank you for referring your patient to [facility]. Name Value Range Interpretation Code Description Data Arianne rce(s) Supporting Document(s) ID Date Data Source [id number] 04/05/2019 09:25:[address] - [facility] Name BERKLEY LOPEZ hdate 2000Sex FEMALE Age 18 yearsPatient Acct. No. [id number] ER OLLAttending ER Physician Fabrice LINARES, [facility] Physician DINORAH DOOLEYMicrobiologyS = Susceptible [...] Predominating PathogenPerforming Locationsf1: This test was performed at:[facility], [address] [place] [address], [facility]- Name Value Range Interpretation Code Description Data Arianne rce(s) Supporting Document(s) ID Date Data Source [id number] 04/03/2019 02:14:[address] - [facility] Name Value Range Interpretation Code Description Data Arianne rce(s) Supporting Document(s) UA Squamous Epithelial Cells <2 /HPF 0-5 [facility] - [facility] Added as per Lab reflex policy GL_UA_MIC RO_AV_R_UC UA WBC w/UC 2 /HPF 0-5 [facility] - [facility] UA RBC <2 /HPF 0-2 [facility] l[facility] - [facility] UA Mucous Absent [facility] lorraine - [facility] ID Date Data Source [id number] 04/03/2019 02:07:[address] [facility] - [facility] Name Value Range Interpretation Code Description Data Arianne rce(s) Supporting Document(s) UA Color Yellow [facility] l[facility]raine - [facility] UA Clarity Clear [facility] l[facility] - [facility] UA pH 5.0 5.0-8.0 [facility] l[facility] - [facility] UA Specific [place] 1.027 1.005-1.[address] - [facility] UA Leuk w/uc Negative AB [facility] - [facility] UA Nitrite w/UC Negative [facility] - [facility] UA Blood w/UC Negative [facility] L ourdes - [facility] UA Bilirubin Negative [facility] - [facility] If the dipstick bilirubin results are 'P resumptive Positive' the result will be confirmed with an Ictotest due to possible interference. UA Urobilinogen Normal [facility] - [facility] UA Glucose Normal [facility] Lour lorraine - [facility] UA Ketones Negative [facility] l[facility]raine - [facility] UA Protein w/UC Negative [facility] - [facility] UA Ascorbic Acid Negative [facility] The presence of ascorbic acid may interf ere with the detection of blood, glucose, nitrite and bilirubin on the biochemical strip. Detectable limits of >20mg/dL will reflex a microscopic exam. ID Date Data Source [id number] 04/03/2019 01:48:[address] - [facility] BERKLEY LOPEZhiyamilka Complaint: Patie nt states that for the [...] rce(s) Supporting Document(s) ID Date Data Source [id number] 04/03/2019 03:16:[address] [facility] - [facility] Name Value Range Interpretation Code Description Data Arianne rce(s) Supporting Document(s) Lipase Level 103 unit/L 73-393 [facility] ID Date Data Source [id number] 04/03/2019 03:16:[address] - [facility] Name Value Range Interpretation Code Description Data Arianne rce(s) Supporting Document(s) GFR-KIEL >60 mL/min/1.73m2 >=60 [facility] eGFR added on by Discern Expert.* [...] - [facility] ID Date Data Source [id number] 04/03/2019 03:16:[address] - [facility] Name Value Range Interpretation Code Description Data Arianne rce(s) Supporting Document(s) C-Reactive Protein. 1.0 mg/dL <=1.0 [facility] - [facility] ID Date Data Source [id number] 04/03/2019 03:16:[address] [facility] - [facility] Name Value Range Interpretation Code Description Data Arianne rce(s) Supporting Document(s) Sodium Level 140 mmol/L 136-144 [facility] - [facility] Potassium Level 3.7 mmol/L 3.6-5.1 [facility] - [facility] Chloride 112 mmol/L 98-110 Above high normal [facility] CO2 21 mmol/L 22-32 Below low normal [facility] AGAP 7 mEq/L 4-14 [facility] lorraine - [facility] Glucose Level. 148 mg/dL 65-100 Above high normal [facility] If patient is taking either of these dominguez gs, there has been a bias identified:Sulfasalazine may cause falsely decreased resultsSulfaspyridine may cause falsely increased results BUN 13 mg/dL 8-23 [facility] lorraine - [facility] Creatinine 0.67 mg/dL 0.40-1.10 [facility] lor[facility] - [facility] Calcium 9.4 mg/dL 8.5-10.5 [facility] lorraine - [facility] Total Protein 7.6 gm/dL 6.4-8.2 [facility] L our[facility] - [facility] Globulin 3.6 gm/dL 1.5-3.8 [facility] lorraine - [facility] Albumin Level 4.0 gm/dL 3.3-4.8 [facility] our[facility] - [facility] Bilirubin Total. 0.3 mg/dL 0.2-1.0 [facility] AST 13 unit/L 15-41 Below low normal [facility] If patient is taking either of these domingeuz gs, there has been a bias identified:Sulfasalazine may cause falsely decreased resultsSulfaspyridine may cause falsely decreased results Alk Phos 89 unit/L 45-117 [facility] ALT 32 unit/L 14-54 [facility] If patient is taking either of these dominguez gs, there has been a bias identified:Sulfasalazine may cause falsely decreased resultsSulfaspyridine may cause falsely decreased results ID Date Data Source [id number] 04/03/2019 01:23:[address] Name Value Range Interpretation Code Description Data Arianne rce(s) Supporting Document(s) Serum Qualitative Negative [facility] ID Date Data Source [id number] 04/03/2019 01:03:[address] Name Value Range Interpretation Code Description Data Arianne rce(s) Supporting Document(s) WBC 8.1 K/uL 4.0-10.0 [facility] RBC 4.84 Million/mcL 4.20-5.40 [facility] Hgb 13.3 gm/dL 12.0-16.0 [facility] Hct 40.0 % 36.0-47.0 [facility] MCV 82.7 fL 82.0-98.0 [facility] MCH 27.4 pg 26.0-33.0 [facility] MCHC 33.1 gm/dL 32.0-36.0 [facility] RDW 14.1 % 11.4-14.4 [facility] Platelet 302 K/mcL 150-400 [facility] MPV 9.2 fL 7.4-10.4 [facility] ID Date Data Source [id number] 04/03/2019 01:03:[address] Name Value Range Interpretation Code Description Data Arianne rce(s) Supporting Document(s) Neutrophils, auto 58.3 % 40.0-80.0 [facility] Neutrophils, absolute 4.7 K/mcL 1.5-7.7 [facility] Lymphocytes, auto 34.4 % 15.0-40.0 [facility] Lymphocytes, absolute 2.8 K/mcL 1.5-4.0 [facility] Monocytes, auto 5.3 % 0.0-12.0 [facility] Monocytes, absolute 0.4 K/mcL 0.2-1.0 [facility] Eosinophils, auto 1.3 % 0.0-5.0 [facility] Eosinophils, absolute 0.1 K/mcL 0.0-0.3 [facility] Basophils, auto 0.7 % 0.0-2.0 [facility] Basophils, absolute 0.1 K/mcL 0.0-0.1 [facility] ID Date Data Source [id number] 03/30/2019 04:42:[address] BERKLEY LOPEZ LPATIENT IDENTIFICATION :[facility] LMedical Record Number: [id number] Of : 2000CHIEF COMPLAINT:rm 6 has been [...] shehas abnormalmenses.requesting work note.Otherwise ana rosa العلي alexis denies recent illness, respiratory symptoms, fever.REVIEW OF [...] (03/26/19)Protein Urine Dipstick POC Clinic: Negative (03/26/19)Specific [place] Dipstick POC Clinic: 1.030 (03/26/19)Urobilinogen Urine Dipstick [...] good understanding. *This note was completed using SPO Dictation System. Reasonable attemptshave been made tocorrect [...] rce(s) Supporting Document(s) ID Date Data Source [id number] 03/28/2019 07:35:[address] Name BERKLEY LOPEZ hdate 2000Sex FEMALE Age 18 yearsPatient Acct. No. [id number] LCB OLLAttending ER Physician Zee Gonzalez FNPPrimary Care Physician Maco DOOLEYrobiologyS = Susceptible I = Intermediate R = Resistant N/A = Not U = UninterpretableApplicableProcedure: Culture Urine [f1] U CleanCatch Body Site:Collected Date/Time: 03/26/2019 18:47 EST Received Date/Time: 03/26/2019 18:47 ESTStart Date/Time: 03/26/2019 18:48 EST Free Text Source:Ordering Physician: Zee Gonzalez FNPFINAL REPORTSFinal Report [] Verified Date/Time: 03/28/2019 07:35 EST10,000 to 50,000 cfu/ml Multiple Species Present, No Predominating PathogenPerforming Locationsf1: This test was performed at:[facility], [address] [place] [address], [facility]- Name Value Range Interpretation Code Description Data Arianne rce(s) Supporting Document(s) ID Date Data Source [id number] 02/18/2019 05:02:[address] [facility] SOURCE:History is from patient I reviewed the [...] well-nourished woman who appears her stated age. Iamdbn-ss-ljfcyokifmivzjgb.HEAD: Normocephalic/atraumatic.EYES: Pupils equal round reactive to light [...] Line Final Dictated: 02/18/2019 11:05 am WILFREDO ALBRIHGT Signed (Electronic Signature): 02/18/2019 11:06 am PACS [...] rce(s) Supporting Document(s) ID Date Data Source [id number] 02/18/2019 12:31:[address] [facility] EXAM:CT ABD/PELVIS W/IV ONLY CONTRAST OR DERING [...] Thank you for referring your patient to [facility] Name Value Range Interpretation Code Description Data Arianne rce(s) Supporting Document(s) ID Date Data Source [id number] 02/18/2019 11:09:[address] EXAM: US PELVIS TRANSVAGINAL ONLY ORDERI NG [...] Thank you for referring your patient [facility] Name Value Range Interpretation Code Description Data Arianne rce(s) Supporting Document(s) ID Date Data Source [id number] 02/18/2019 10:47:[address] Name Value Range Interpretation Code Description Data Arianne rce(s) Supporting Document(s) APTT 27 second(s) 24-33 [facility]en holliday [facility] Suggested therapeutic range for unfracti onated Heparin is 2 to 2.5 times the mean normal value. Levels below 60 seconds may indicate insufficient anticoagulant.For therapeutic monitoring of various direct thrombin inhibitors, please refer to Micromedex or LexiComp on the [facility] Intranet. ID Date Data Source [id number] 02/18/2019 11:07:[address] Name Value Range Interpretation Code Description Data Arianne rce(s) Supporting Document(s) Serum Qualitative Negative [facility] ID Date Data Source [id number] 02/18/2019 10:46:[address] [facility] Name Value Range Interpretation Code Description Data Arianne rce(s) Supporting Document(s) Lipase Level 96 unit/L 73-393 [facility] holl[facility] - [facility] ID Date Data Source [id number] 02/18/2019 10:46:[address] [facility] Name Value Range Interpretation Code Description Data Arianne rce(s) Supporting Document(s) C-Reactive Protein. 3.3 mg/dL <=1.[address] [facility] ID Date Data Source [id number] 02/18/2019 10:46:[address] Name Value Range Interpretation Code Description Data Arianne rce(s) Supporting Document(s) GFR-KIEL >60 mL/min/1.73m2 >=60 [facility] eGFR added on by Discern Expert.* [...] - [facility] ID Date Data Source [id number] 02/18/2019 10:46:[address] [facility] Name Value Range Interpretation Code Description Data Arianne rce(s) Supporting Document(s) Sodium Level 140 mmol/L 136-144 [facility] Lo urdes - [facility] Potassium Level 3.6 mmol/L 3.6-5.1 [facility] Chloride 112 mmol/L 98-110 Above high normal [facility] CO2 24 mmol/L 22-32 [facility] AGAP 4 mEq/L 4-14 [facility] Glucose Level. 91 mg/dL 65-100 [facility] If patient is taking either of these dominguez gs, there has been a bias identified:Sulfasalazine may cause falsely decreased resultsSulfaspyridine may cause falsely increased results BUN 15 mg/dL 8-23 [facility] Creatinine 0.80 mg/dL 0.40-1.10 [facility] - [facility] Calcium 8.9 mg/dL 8.5-10.5 [facility] - [facility] Total Protein 7.1 gm/dL 6.4-8.2 [facility] L ourlorraine - [facility] Globulin 3.5 gm/dL 1.5-3.8 [facility] Lozenon lorraine - [facility] Albumin Level 3.6 gm/dL 3.3-4.8 [facility] L [facility] - [facility] Bilirubin Total. 0.4 mg/dL 0.2-1.0 [facility] AST 11 unit/L 15-41 Below low normal [facility] If patient is taking either of these dominguez gs, there has been a bias identified:Sulfasalazine may cause falsely decreased resultsSulfaspyridine may cause falsely decreased results Alk Phos 93 unit/L 45-117 [facility] Krishna peters - [facility] ALT 47 unit/L 14-54 [facility] Krishna peters - [facility] If patient is taking either of these dominguez gs, there has been a bias identified:Sulfasalazine may cause falsely decreased resultsSulfaspyridine may cause falsely decreased results ID Date Data Source [id number] 02/18/2019 10:46:[address] [facility] Name Value Range Interpretation Code Description Data Arianne rce(s) Supporting Document(s) Amylase Level 28 unit/L 28-100 [facility] Jessica koch - [facility] ID Date Data Source [id number] 02/18/2019 10:17:[address] [facility] Name Value Range Interpretation Code Description Data Arianne rce(s) Supporting Document(s) WBC 6.6 K/uL 4.0-10.0 [facility] Krishna peters - [facility] RBC 4.50 Million/mcL 4.20-5.40 [facility] Hgb 12.4 gm/dL 12.0-16.0 [facility] - [facility] Hct 37.2 % 36.0-47.0 [facility] - [facility] MCV 82.6 fL 82.0-98.0 [facility] - [facility] MCH 27.5 pg 26.0-33.0 [facility] - [facility] MCHC 33.3 gm/dL 32.0-36.0 [facility] - [facility] RDW 13.7 % 11.4-14.4 [facility] Platelet 272 K/mcL 150-400 [facility] - [facility] MPV 8.3 fL 7.4-10.4 [facility] - [facility] ID Date Data Source [id number] 02/18/2019 10:17:[address] - [facility] Name Value Range Interpretation Code Description Data Arianne rce(s) Supporting Document(s) Neutrophils, auto 63.8 % 40.0-80.0 [facility] Neutrophils, absolute 4.2 K/mcL 1.5-7.7 [facility] Lymphocytes, auto 23.6 % 15.0-40.0 [facility] Lymphocytes, absolute 1.6 K/mcL 1.5-4.0 [facility] Monocytes, auto 10.9 % 0.0-12.0 [facility] Monocytes, absolute 0.7 K/mcL 0.2-1.0 [facility] - [facility] Eosinophils, auto 0.9 % 0.0-5.0 [facility] Eosinophils, absolute 0.1 K/mcL 0.0-0.3 [facility] Basophils, auto 0.8 % 0.0-2.0 [facility] Basophils, absolute 0.1 K/mcL 0.0-0.1 [facility] Procedure Social History Code Duration Value Status Description Data Source(s ) Alcohol intake 12/20/2019 12:00:00 AM EDT Current non-d chana of alcohol (finding) completed Current non-drinker of alcohol (finding) [facility] Tobacco use and exposure 12/20/2019 12:00:00 AM EDT Never used co mpleted Never used [facility] Smoking 12/20/2019 12:00:00 AM EDT Never smoker completed Never s [facility] 06/29/2019 12:00:00 AM EDT Patient is a current smoker, smokes every day completed Patient is a current smoker, smokes every day [facility] ( [facility]) ASSERTION 05/08/2019 12:00:00 AM EDT soda and coffee completed soda and coffee [facility] Vital Signs ID Date Data Source UNK Name Value Range Interpretation Code Description Data Source(s) Body weight Measured 240 lb 14 oz [address] [facility] 2Result Comment: Result placed secondary from kg, converted to lbs Body height 66.0 [in_i] 66.0 [in_i] [facility] 1Result Comment: Result placed secondary from cm, converted to Inches Deprecated Oxygen saturation in Capillary blood by Oximetry 98 % 90-100 Normal (applies to non-numeric results) 98 % [facility] Heart rate 100 /min 60-100 Normal (applies to non-numeric resul ts) 100 /min [facility] Systolic blood pressure 90-140 Normal (applies t o non-numeric results) mm[Hg] [facility] Body temperature 98.6 [degF] 97.9-99.7 Normal (applies to non-n umeric results) 98.6 [degF] [facility] Deprecated Oxygen saturation in Capillary blood by Oximetry 97 % 90-100 Normal (applies to non-numeric results) 97 % [facility] Respiratory rate 20 /min 14-20 Normal (applies to non-numeric results) 20 /min [facility] Heart rate 104 /min 60-100 Above high normal 104 /min [facility] Systolic blood pressure 90-140 Normal (applies t o non-numeric results) mm[Hg] [facility] Body temperature 98.4 [degF] 97.9-99.7 Normal (applies to non-n umeric results) 98.4 [degF] [facility] Body weight Measured 244 lb 8 oz 244 lb 8 oz As cension Sarah - [facility] 2Result Comment: Result placed secondary from kg, converted to lbs Body height 66.0 [in_i] 66.0 [in_i] [facility] 1Result Comment: Result placed secondary from cm, converted to Inches Deprecated Oxygen saturation in Capillary blood by Oximetry 97 % 90-100 Normal (applies to non-numeric results) 97 % [facility] Respiratory rate 20 /min 14-20 Normal (applies to non-numeric results) 20 /min [facility] Heart rate 104 /min 60-100 Above high normal 104 /min [facility] Systolic blood pressure 90-140 Normal (applies t o non-numeric results) mm[Hg] [facility] Body temperature 98.4 [degF] 97.9-99.7 Normal (applies to non-n umeric results) 98.4 [degF] [facility] Body weight Measured 244 lb 8 oz 244 lb 8 oz As [facility] Sarah - [facility] 2Result Comment: Result placed secondary from kg, converted to lbs Body height 66.0 [in_i] 66.0 [in_i] [facility] 1Result Comment: Result placed secondary from cm, converted to Inches Body mass index (BMI) [Ratio] 38.96 kg/meter(2) Overweight 38.96 kg/meter(2) [facility] Respiratory rate 18 /min 18 /min [facility] Body temperature 97.90 [degF] 97.90 [degF] Unit ed [facility] Heart rate 94 /min 94 /min [facility] Diastolic blood pressure 84 mm[Hg] 84 mm[Hg] [facility] Systolic blood pressure 138 mm[Hg] 138 mm[Hg] [facility] Body weight Measured 241.41 [lb_av] 241.41 [lb_ av] [facility] Body height 66.00 [in_us] 66.00 [in_us] [facility] Body weight Measured 241 lb 7 oz 241 lb 7 oz As [facility] 2Result Comment: Result placed secondary from kg, converted to lbs Body height 66.0 [in_i] 66.0 [in_i] [facility] 1Result Comment: Result placed secondary from cm, converted to Inches Deprecated Oxygen saturation in Capillary blood by Oximetry 98 % 90-100 Normal (applies to non-numeric results) 98 % [facility] Respiratory rate 20 /min 14-20 Normal (applies to non-numeric results) 20 /min [facility] Heart rate 97 /min 60-100 Normal (applies to non-numeric resul ts) 97 /min [facility] Systolic blood pressure 90-140 Normal (applies t o non-numeric results) mm[Hg] [facility] Body temperature 98.1 [degF] 97.9-99.7 Normal (applies to non-n umeric results) 98.1 [degF] [facility] Body weight Measured 241 lb 7 oz 241 lb 7 oz [facility] Sarah - [facility] 2Result Comment: Result placed secondary from kg, converted to lbs Body height 66.0 [in_i] 66.0 [in_i] [facility] 1Result Comment: Result placed secondary from cm, converted to Inches Deprecated Oxygen saturation in Capillary blood by Oximetry 98 % 90-100 Normal (applies to non-numeric results) 98 % [facility] Respiratory rate 20 /min 14-20 Normal (applies to non-numeric results) 20 /min [facility] Heart rate 97 /min 60-100 Normal (applies to non-numeric resul ts) 97 /min [facility] Systolic blood pressure 90-140 Normal (applies t o non-numeric results) mm[Hg] [facility] Body temperature 98.1 [degF] 97.9-99.7 Normal (applies to non-n umeric results) 98.1 [degF] [facility] Patient Treatment Plan of Care Planned Activity Planned Date Details Description Data Source (s) Flonase Allergy Relief 50 mcg/actuation nasal spray,dickinson spension 06/08/2016 12:00:00 AM EDT [facility] Previfem 0.25 mg-35 mcg tablet [facility] Lactobacillus rhamnosus GG [id number] UNT Oral Capsule [facility] trazodone 50 mg tablet [facility] Hyoscyamine Sulfate 0.125 MG/ML Oral Solution [facility] Briellyn 0.4 mg-35 mcg tablet [facility] Clonazepam 1 MG Oral Tablet [facility] methylphenidate ER 50 mg multiphase capsule 30-70,extended release [facility] Metformin hydrochloride 500 MG Oral Tablet [facility]
[2020-03-20] MEDS ORDERED: KETOROLAC 30 MG/ML 1ML VIAL IV ONE (23:15)
[2020-03-21 00:03] LABS: APPEARANCE, URINE HAZY (CLEAR); BACTERIA, URINE AUTO NEGATIVE (NEGATIVE); BILIRUBIN, URINE AUTO NEGATIVE (NEGATIVE); BLOOD, URINE BLOOD 2+ (NEGATIVE); COLOR, URINE YELLOW (YELLOW); GLUCOSE, URINE (UA) AUTO NEGATIVE (NEGATIVE); KETONE, URINE AUTO NEGATIVE (NEGATIVE); LEUKOCYTE ESTERASE, URINE AUTO TRACE (NEGATIVE); MUCUS, URINE SMALL (NEGATIVE); NITRITE, URINE AUTO NEGATIVE (NEGATIVE); PROTEIN, URINE AUTO 2+ mg/dL (NEGATIVE); RBC, URINE AUTO 60 /HPF (0-3); SPECIFIC GRAVITY URINE AUTO 1.029 (1.002-1.035); SQUAMOUS EPITHELIAL CELL UR AU 1 /HPF (0-6); WBC, URINE AUTO 2 /HPF (0-3)
--- OUTSIDE RECORDS SUMMARY | 2020-03-21 00:08 | CCD ---
Author Author [facility] Organization [facility] Address Unknown Phone Unavailable Care Team Providers Care Loan Broker Name Role Phone CAM PRINCE MD Unavailable [...] Unavailable CROWDER, ANANYA DO Unavailable Unavailable CROWDER, ANAYNA DO Unavailable Unavailable CROWDER, ANANYA DO Unavailable Unavailable Provider Pending, [facility] Shamar Combs MD Unavailable Un available Toñito Avina MD Unavailable Unavailable Toñito Avina MD Unavailable Unavailable TAHIRA NEAL Unavailable Unavailable DESEAN LINARES, Physician Maryann ORTIZ Unavailable Unavailable JIGNESH ELLIS MD Unavailable Unavailable JIGNESH ELLIS MD Unavailable Unavailable Sanford, Desiree EDUCATIONAL ASSISTANT TEACHER Unavailable Unavailable Sanford, Desiree EDUCATIONAL ASSISTANT TEACHER Unavailable Unavailable Sanford, Desiree EDUCATIONAL ASSISTANT TEACHER Unavailable Unavailable Sanford, Desiree EDUCATIONAL ASSISTANT TEACHER Unavailable Unavailable Sanford, Desiree EDUCATIONAL ASSISTANT TEACHER Unavailable Unavailable NON, PHYSICIAN STAFF Unavailable Unavailable [...] Juarez, W Best Unavailable Unavailable Juarez, W Bset Unavailable Unavailable Ujarez, W Best Unavailable Unavailable Juarez, W Best Unavailable Unavailable [id number], [id number] Unavailable MEDENT_[id number], [id number] Unavailable MEDENT_[id number], [id number] Unavailable MEDENT_[id number], [id number] Unavailable MEDENT_[id number], [id number] Unavailable MEDENT_[id number], [id number] Unavailable MEDENT_[id number], [id number] Unavailable MEDENT_[id number], [id number] Unavailable MEDENT_[id number], [id number] Unavailable Theron Fuller MD Unavailable Unavailable Theron [...] is protected by Article 27-F of the [facility] Public Health law. If you continue you may have access to information: Regarding HIV / AIDS; Provided by facilities licensed or operated by the [facility] Office of Mental Health; or Provided by the [facility] Office for People With Developmental Disabilities. If such information is present, then the following [facility] mandated warning applies: This information has been [...] law may result in a fine or snf sentence or both. A general authorization for the release of medical or other information is NOT sufficient authorization for further disc losure. Family History Family Member Name Family Member Gender Family Member Status Date o f Status Description Data Source(s) Unknown Male Diagnosis 11/07/2014 12:00:00 AM EDT [facility] Encounters Encounter Providers Location Date Indications Data Source(s ) [place] [id number] [facility] [address] 03/14/2020 12:00:00 AM EST eCW1 ([facility]) Unknown [id number] [facility] [address] 03/14/2020 12:00:00 AM EST eCW1 ([facility]) Outpatient Attender: CAM PRINCE MD 02/21/2020 12:00: 00 AM [facility] Outpatient Attender: CAM PRINCE MD [id number] 12:00:00 AM EDT - 12/20/2019 03:38:04 PM EDT [facility] Emergency Attender: RONDA GARCIAConsultant: STAFF NON 11/07/2019 11:33:00 PM EDT - 11/08/2019 01:19:00 AM EDT [facility] Patient discharged. Outpatient 07/20/2019 06:39:00 PM EDT [facility] Outpatient Attender: REBEKAH CHAUHAN MD MDAdmitt er: REBEKAH CHAUHAN MD, MD [facility] 07/18/2019 10:30:00 AM EDT TELEPHONE discuss surgery [facility] TELEPHONE discuss surgery [facility] ENT/Facial Plastic Surgery 0 07/18/2019 10:30:00 AM EDT - 07/18/2019 10:30:00 AM EDT Proc/trtmt not carried out because of contraindication [facility] Services Proc/trtmt not carried out because of co ntraindication P Attender: SALMA CARRASCOdmitter: SALMA ALVARADO MATTHIAS-MATTHIAS 07/11/2019 10:42:00 AM EDT [place] [facility] [place] P Attender: LISA DOBSONAdmitter: LISA DOBSON MATTHIAS-MATTHIAS 2019 03:14:00 PM EDT [place] [facility] Outpatient Attender: LISA DOBSONAdmitter: LISA DOBSON MATTHIAS-MATTHIAS 06/29/2019 01:18:00 PM EDT - 06/29/2019 01:18:00 PM EDT [place] [facility] [place] [facility] Patient discharged. Outpatient Attender: Wali Temple MDAdmitter: Wali casanova MD [facility] 06/18/2019 06:16:00 PM EDT - 06/18/2019 08:15:00 PM EDT [facility] Patient discharged. Outpatient Attender: SALMA CARRASCOdmitter: SALMA ALVARADO OUT-OUT 05/31/2019 12:01:00 AM EDT - 06/29/2019 11:59:00 PM EDT [place] [facility] Patient discharged. P Attender: SALMA CARRASCOdmitter: SALMA ALVARADO MATTHIAS-MATTHIAS 05/30/2019 08:44:00 AM EDT [place] [facility] Outpatient Attender: SALMA CARRASCOdmitter: SALMA ALVARADO MATTHIAS-MATTHIAS 05/30/2019 08:29:00 AM EDT - 05/30/2019 08:29:00 AM EDT [place] [facility] Patient discharged. P Attender: Desiree CHERRY PAttender: PROVIDER TESTAdmitter: Desiree HERNANDEZ LCB-LCB 05/26/2019 01:33:00 PM EDT [place] [facility] [place] [facility] [place] [facility] Outpatient Attender: HALEY ZAYASAdmitter: HALEY SERRANO LCB-LCB 05/16/2019 05:58:00 PM EDT - 05/16/2019 05:58:00 PM EDT [place] [facility] Patient discharged. Outpatient Attender: HALEY FRIEDMAN ttender: PROVIDER TESTAdmitter: HALEY ZAYAS LCB-LCB 05/16/2019 05:23:00 PM EDT - 05/16/2019 05:58:00 PM EDT [place] [facility] Emergency Attender: Nilton moura DOAdmitter: Nilton Corbinerrer: Dinorah Dooley MD M/S-M/S 05/12/2019 02:05:00 PM EDT - 05/12/2019 03:05:00 PM EDT [place] [facility] Patient discharged. Emergency Attender: Nilton moura DOAdmitter: Nilton Corbinerrer: Dinorah Dooley MD ANC-ER 05/12/2019 02:05:00 PM EDT [place] [facility] Outpatient Attender: TAHIRA BELLA PAAdmitter: TAHIRA HOFFMANN MATTHIAS-MATTHIAS 05/12/2019 12:53:00 PM EDT - 05/12/2019 12:53:00 PM EDT [place] [facility] Patient discharged. Outpatient Attender: Best Verma r: [facility] Shamar Combs Provider Pending MDAdmitter: Best CASTRO 05/08/2019 11:02:00 AM EDT [facility] OutpatientOffice/outpatient visit,est, mod [facility] 05/08/2019 11:02:00 AM EDT - 05/08/2019 11:02:00 AM EDT Intractable migraine without status migrainosus, unspecified migraine type [facility] Intractable migraine without status migr ainosus, unspecified migraine type Outpatient Attender: MADHAVI GUAJARDOdmitter: MADHAVI WIN ANC -BCC 05/01/2019 08:27:00 AM EST - 05/01/2019 08:27:00 AM EST [place] [facility] Patient discharged. Outpatient Attender: SALMA Bethitter: SALMA ALVARADO OUT-OUT 2019 12:01:00 AM EST - 05/30/2019 11:59:00 PM EDT [place] [facility] Patient discharged. Emergency Attender: Teddy Kurtz nder: Nilton Willson DOAdmitter: Teddy Mckenna MDReferrer: Dinorah Dooley MD M/S-M/S 04/27/2019 01:15:00 PM EST - 04/27/2019 05:18:00 PM EST [place] [facility] Patient discharged. Emergency Attender: Nilton Willson DOAdmitter : Nilton Willson DO ANC-ER 04/27/2019 01:15:00 PM EST [place] [facility] Outpatient Attender: SALMA Bethitter: SALMA ALVARADO OUT-OUT 04/26/2019 02:59:00 PM EST - 04/27/2019 09:13:00 AM EST [place] [facility] Patient discharged. Outpatient Attender: SALMA Bethitter: SALMA ALVARADO OUT-OUT 04/25/2019 09:15:00 AM EST - 04/29/2019 11:59:00 PM EST [place] [facility] Patient discharged. Outpatient Attender: TAHIRA BELLA PAAdmitter: TAHIRA HOFFMANN MATTHIAS-MATTHIAS 04/24/2019 10:16:00 AM EST - 04/24/2019 10:16:00 AM EST [place] [facility] Patient discharged. P Attender: TAHIRA BELLA PAAdmitter: TAHIRA HOFFMANN MATTHIAS-MATTHIAS 04/24/2019 09:00:00 AM EST [place] [facility] P Attender: SALMA Bethitter: SALMA ALVARADO MATHTIAS-MATTHIAS 04/19/2019 09:00:00 AM EST [place] - [facility] Outpatient Attender: SALMA Bethitter: SALMA ALVARADO MATTHIAS-MATTHIAS 04/10/2019 07:46:00 AM EST - 04/10/2019 09:28:00 AM EST [place] [facility] Patient discharged. Outpatient Attender: SALMA Bethitter: SALMA ALVARADO ANC-NICKOLAS 04/10/2019 05:00:00 AM EST - 04/10/2019 07:00:00 PM EST [place] [facility] Patient discharged. Outpatient Attender: SALMA CARRASCO dmitter: SALMA Alemanultant: Physician DIANA ANTON MD ANC-NICKOLAS 04/10/2019 05:00:00 AM EST - 04/10/2019 07:00:00 PM EST [place] [facility] P Attender: SALMA Bethitter: SALMA ALVARADO ANC-NICKOLAS 04/10/2019 04:00:00 AM EST [place] [facility] P Attender: SALMA Bethitter: SALMA ALVARADO PAT-PAT 04/05/2019 04:00:00 AM EST [place] - [facility] P Attender: SALMA Bethitter: SALMA ALVARADO MATTHIAS-MATTHIAS 04/04/2019 01:50:00 PM EST [place] [facility] Outpatient Attender: [id number] [facility] Main Office 04/04/2019 11:45:00 AM EST [facility] ([facility] ) Outpatient Attender: SALMA Bethitter: SALMA ALVARADO MATTHIAS-MATTHIAS 04/04/2019 09:52:00 AM EST - 04/04/2019 09:52:00 AM EST [place] [facility] Patient discharged. Emergency Attender: Toñito Avina MDAdmit ter: Toñito Avina MDReferrer: Dinorah Dooley MD M/S-M/S 04/03/2019 12:15:00 PM EST - 04/03/2019 05:20:00 PM EST [place] [facility] Patient discharged. Emergency Attender: Toñito Avina MDAdmit ter: Toñito Avina MDReferrer: Dinorah Dooley MD ANC-ER 04/03/2019 12:15:00 PM EST - 04/03/2019 05:20:00 PM EST [place] [facility] P Attender: MADHAVI BARBOURCHAYAdmitter: MADHAVI WIN ANC -BCC 03/28/2019 04:00:00 AM EST [place] - [facility] Outpatient Attender: PROVIDER TESTAdmitter: PROVIDER TEST Jessica CB-LCB 03/26/2019 11:11:00 AM EST - 03/26/2019 12:11:00 PM EST [place] [facility] Patient discharged. Outpatient Attender: ZEE Morinender: PROVIDER TESTAdmitter: ZEE ARELLANOB-LCB 03/26/2019 10:11:00 AM EST - 03/26/2019 12:11:00 PM EST [place] [facility] Outpatient Attender: ZEE Morinender: PROVIDER TESTAdmitter: ZEE ARELLANOB-LCB 03/26/2019 10:11:00 AM EST - 03/27/2019 11:59:59 PM EST [place] [facility] Emergency Attender: Atilio Fuller MDAdmitter: Atilio stahl MD M/S-M/S 02/18/2019 09:11:00 AM EST - 02/18/2019 02:08:00 PM EST [place] [facility] Patient discharged. Emergency Attender: Atilio Fuller MDAdmitter: Atilio stahl MD ANC-ER 02/18/2019 09:11:00 AM EST [place] [facility] Outpatient [facility] 01/27/2019 02:52:00 PM EST - 019 12:00:00 AM EDT [facility] Patient discharged. [facility] [employer] [employer] [facility] [place] [facility] 03/29/2018 02:48:00 PM EST - 01/27/2019 02:48:00 PM EST [facility] Emergency Attender: ANANYA OMALLEY ttender: Nilton Willson DOAdmitter: ANANYA CROWDER DOReferrer: Dinorah Dooley MD M/S-M/S 12/03/19 02:43:00 PM EDT - 12/02/2018 07:06:00 PM EDT [place] [facility] Patient discharged. Emergency Attender: JIGNESH ELLIS MDAt tender: Atilio Fuller MDAdmitter: JIGNESH ELLIS MDReferrer: Dinorah Dooley MD M/S-M/S 11/28/2018 01:55 :00 PM EDT - 11/28/2018 06:46:00 PM EDT [place] [facility] Patient discharged. Medications Medication Brand Name Start Date Product Form Dose Route Admi nistrative Instructions Pharmacy Instructions Status Indications Reaction Description Data Source(s) Diclofenac Sodium 50 MG Delayed Release Oral Tablet Diclofen ac Sodium 06/29/2019 12:00:00 AM EDT ORAL active M [facility]ENT ([facility]) naproxen 500 mg oral tablet 05/26/2019 02:15:00 PM EDT 5 00.0 By Mouth completed 500 mg = 1 tab(s), P O (oral), bid, PRN Pain, # 30 tab(s), Maintenance, Pharmacy: [facility]/pharmacy #[id number], 1 tab(s) PO (oral) bid,PRN:Pain [place] - [facility], [facility] naproxen 500 mg oral tablet 05/26/2019 02:15:00 PM EDT 5 00.0 By Mouth completed 500 mg = 1 tab(s), P O (oral), bid, PRN Pain, # 30 tab(s), Maintenance, Pharmacy: [facility]/pharmacy #[id number], 1 tab(s) PO (oral) bid,PRN:Pain [place] [facility] naproxen 500 mg oral tablet 05/26/2019 02:15:00 PM EDT 5 00.0 By Mouth completed 500 mg = 1 tab(s), P O (oral), bid, PRN Pain, # 30 tab(s), Maintenance, Pharmacy: [id number], 1 tab(s) PO (oral) bid,PRN:Pain [place] [facility] naproxen 500 mg oral tablet 05/26/2019 02:15:00 PM EDT 5 00.0 By Mouth completed 500 mg = 1 tab(s), P O (oral), bid, PRN Pain, # 30 tab(s), Maintenance, Pharmacy: [id number], 1 tab(s) PO (oral) bid,PRN:Pain [place] [facility] [place] [facility] Zofran 4 mg oral tablet 05/12/2019 02:44:00 PM EDT 4.0 Under your Tongue completed 4 mg = 1 tab(s), SubLINGUAL, q6hr, PRN for Nausea or Vomiting, # 9 tab(s), 0 Refill(s), Maintenance, Pharmacy: [facility]/pharmacy #[id number], 1 tab(s) SubLINGUAL q6hr,x3 day(s),PRN:for Nausea or Vomiting [place] [facility] [place] [facility] Zofran 4 mg oral tablet 05/12/2019 02:44:00 PM EDT 4.0 Under your Tongue completed 4 mg = 1 tab(s), SubLINGUAL, q6hr, PRN for Nausea or Vomiting, # 9 tab(s), 0 Refill(s), Maintenance, Pharmacy: [facility]/pharmacy #[id number], 1 tab(s) SubLINGUAL q6hr,x3 day(s),PRN:for Nausea or Vomiting [place] [facility] [place] [facility] Zofran 4 mg oral tablet 05/12/2019 02:44:00 PM EDT 4.0 Under your Tongue completed 4 mg = 1 tab(s), SubLINGUAL, q6hr, PRN for Nausea or Vomiting, # 9 tab(s), 0 Refill(s), Maintenance, Pharmacy: [facility]/pharmacy #[id number], 1 tab(s) SubLINGUAL q6hr,x3 day(s),PRN:for Nausea or Vomiting [place] [facility] [place] [facility] Zofran 4 mg oral tablet 05/12/2019 02:44:00 PM EDT 4.0 Under your Tongue completed 4 mg = 1 tab(s), SubLINGUAL, q6hr, PRN for Nausea or Vomiting, # 9 tab(s), 0 Refill(s), Maintenance, Pharmacy: [id number], 1 tab(s) SubLINGUAL q6hr,x3 day(s),PRN:for Nausea or Vomiting [place] [facility] Zofran 4 mg oral tablet 05/12/2019 02:44:00 PM EDT 4.0 Under your Tongue completed 4 mg = 1 tab(s), SubLINGUAL, q6hr, PRN for Nausea or Vomiting, # 9 tab(s), 0 Refill(s), Maintenance, Pharmacy: [id number], 1 tab(s) SubLINGUAL q6hr,x3 day(s),PRN:for Nausea or Vomiting [place] [facility] Zofran ODT 4 mg oral tablet, disintegrating 04/27/2019 05: 08:00 PM EST 4.0 By Mouth completed 4 mg = 1 tab(s ), PO (oral), tid, PRN Nausea, # 9 tab(s), Maintenance, Pharmacy: [id number], 1 tab(s) PO (oral) tid,PRN:Nausea [place] [facility] Zofran ODT 4 mg oral tablet, disintegrating 04/27/2019 05: 08:00 PM EST 4.0 By Mouth completed 4 mg = 1 tab(s ), PO (oral), tid, PRN Nausea, # 9 tab(s), Maintenance, Pharmacy: [id number], 1 tab(s) PO (oral) tid,PRN:Nausea [place] [facility] Zofran ODT 4 mg oral tablet, disintegrating 04/27/2019 05: 08:00 PM EST 4.0 By Mouth completed 4 mg = 1 tab(s ), PO (oral), tid, PRN Nausea, # 9 tab(s), Maintenance, Pharmacy: [facility]/pharmacy #[id number], 1 tab(s) PO (oral) tid,PRN:Nausea [place] [facility] Zofran ODT 4 mg oral tablet, disintegrating 04/27/2019 05: 08:00 PM EST 4.0 By Mouth completed 4 mg = 1 tab(s ), PO (oral), tid, PRN Nausea, # 9 tab(s), Maintenance, Pharmacy: [facility]/pharmacy #[id number], 1 tab(s) PO (oral) tid,PRN:Nausea [place] [facility], [facility] Zofran ODT 4 mg oral tablet, disintegrating 04/27/2019 05: 08:00 PM EST 4.0 By Mouth completed 4 mg = 1 tab(s ), PO (oral), tid, PRN Nausea, # 9 tab(s), Maintenance, Pharmacy: [facility]/pharmacy #[id number], 1 tab(s) PO (oral) tid,PRN:Nausea [place] [facility], [facility] Zofran ODT 4 mg oral tablet, disintegrating 04/27/2019 05: 08:00 PM EST 4.0 By Mouth completed 4 mg = 1 tab(s ), PO (oral), tid, PRN Nausea, # 9 tab(s), Maintenance, Pharmacy: [facility]/pharmacy #[id number], 1 tab(s) PO (oral) tid,PRN:Nausea [place] [facility], [facility] Omeprazole omeprazole 40 mg oral delayed release capsu le omeprazole 40 mg oral delayed release capsule 04/27/2019 05:00:00 PM EST 40.0 By Mouth completed 40 mg = 1 cap(s), PO (oral), qDay, # 90 cap(s), Maintenance, Pharmacy: [facility]/pharmacy #[id number], 1 cap(s) PO (oral) qDay [place] - [facility] Omeprazole omeprazole 40 mg oral delayed release capsu le omeprazole 40 mg oral delayed release capsule 04/27/2019 05:00:00 PM EST 40.0 By Mouth completed 40 mg = 1 cap(s), PO (oral), qDay, # 90 cap(s), Maintenance, Pharmacy: [facility]/pharmacy #[id number], 1 cap(s) PO (oral) qDay [place] - [facility], [facility] Omeprazole omeprazole 40 mg oral delayed release capsu le omeprazole 40 mg oral delayed release capsule 04/27/2019 05:00:00 PM EST 40.0 By Mouth completed 40 mg = 1 cap(s), PO (oral), qDay, # 90 cap(s), Maintenance, Pharmacy: [facility]/pharmacy #[id number], 1 cap(s) PO (oral) qDay [place] - [facility], [facility] Omeprazole omeprazole 40 mg oral delayed release capsu le omeprazole 40 mg oral delayed release capsule 04/27/2019 05:00:00 PM EST 40.0 By Mouth completed 40 mg = 1 cap(s), PO (oral), qDay, # 90 cap(s), Maintenance, Pharmacy: [facility]/pharmacy #[id number], 1 cap(s) PO (oral) qDay [place] - [facility], [facility] Omeprazole omeprazole 40 mg oral delayed release capsu le omeprazole 40 mg oral delayed release capsule 04/27/2019 05:00:00 PM EST 40.0 By Mouth completed 40 mg = 1 cap(s), PO (oral), qDay, # 90 cap(s), Maintenance, Pharmacy: [facility]/pharmacy #[id number], 1 cap(s) PO (oral) qDay [place] [facility], [facility] Omeprazole omeprazole 40 mg oral delayed release capsu le omeprazole 40 mg oral delayed release capsule 04/27/2019 05:00:00 PM EST 40.0 By Mouth completed 40 mg = 1 cap(s), PO (oral), qDay, # 90 cap(s), Maintenance, Pharmacy: [facility]/pharmacy #[id number], 1 cap(s) PO (oral) qDay [place] [facility] medroxyPROGESTERone 150 mg/mL intramuscular suspension 04/27/2019 04:13:00 PM EST 150.0 IntraMUSCULAR completed 150 mg =, IM, Maintenance [place] - [facility], [facility] Morphine Sulfate 15 MG Oral Tablet Morphine Sulfate 04/11/2019 1 2:00:00 AM EST ORAL completed [facility] ([facility]) acetaminophen-oxyCODONE 325 mg-5 mg oral tablet 2019 12:18:00 PM EST 1.0 By Mouth completed 1 tab(s), PO (oral), q4h, PRN Moderate Pain (4- 6), # 20 tab(s), 0 Refill(s), Maintenance, [id number], 1 tab(s) PO (oral) q4h,PRN:Moderate Pain (4-6) [place] [facility] CeleBREX 100 mg oral capsule 04/10/2019 12:17:00 PM EST 100.0 By Mouth completed 100 mg = 1 cap(s), P O (oral), bid, # 60 cap(s), Maintenance, [id number], 1 cap(s) PO (oral) bid [place] - [facility], [facility] docusate sodium 100 mg oral tablet 04/10/2019 12:16:00 PM EST 100.0 By Mouth completed 100 mg =, PO ( oral), qDay, # 5 tab(s), Maintenance, [id number], 100 mg PO (oral) [facility]Day [facility] cephalexin 500 mg oral capsule 04/10/2019 12:16:00 PM EST 500.0 By Mouth completed 500 mg = 1 cap(s ), PO (oral), q6hr, # 12 cap(s), Maintenance, [id number], 1 cap(s) PO (oral) q6hr [facility], [facility] Zofran ODT 4 mg oral tablet, disintegrating 04/10/2019 12: 16:00 PM EST Under your Tongue completed 1 to 2 tab(s), SubLINGUAL, q8h, PRN for nausea or vomiting, # 4 tab(s), Maintenance, [id number], 1 to 2 tab(s) SubLINGUAL q8h,PRN:for nausea or vomiting [place] [facility] aspirin 325 mg oral delayed release tablet 04/10/2019 12:1 6:00 PM EST 325.0 By Mouth completed 325 mg = 1 tab (s), PO (oral), qDay, # 14 tab(s), Maintenance, Pharmacy: [facility]/pharmacy #[id number], 1 tab(s) PO (oral) qDay [place] [facility] [place] [facility] Zofran ODT 4 mg oral tablet, disintegrating 04/03/2019 04: 37:30 PM EST Under your Tongue completed 1 to 2 tab(s), SubLINGUAL, q8h, PRN for nausea or vomiting, # 4 tab(s), Maintenance, Pharmacy: [facility]/pharmacy #[id number], 1 to 2 tab(s) SubLINGUAL q8h,PRN:for nausea or vomiting [place] [facility] Macrobid 100 mg oral capsule 03/26/2019 11:05:15 AM EST 100.0 By Mouth completed 100 mg = 1 cap(s), P O (oral), bid, # 10 cap(s), Maintenance, Pharmacy: [facility]/pharmacy #[id number], 1 cap(s) PO (oral) bid,x5 day(s) [place] [facility] Macrobid 100 mg oral capsule 03/26/2019 11:05:15 AM EST 100.0 By Mouth completed 100 mg = 1 cap(s), P O (oral), bid, # 10 cap(s), Maintenance, Pharmacy: [facility]/pharmacy #[id number], 1 cap(s) PO (oral) bid,x5 day(s) [place] [facility] [place] [facility], [facility] Voltaren 75 mg oral enteric coated tablet 02/18/2019 01:51 :38 PM EST 75.0 By Mouth completed 75 mg = 1 tab( s), PO (oral), bid, # 20 tab(s), Maintenance, Pharmacy: [facility]/pharmacy #[id number], 1 tab(s) PO (oral) bid [place] [facility] [place] [facility] Voltaren 75 mg oral enteric coated tablet 02/18/2019 01:51 :38 PM EST 75.0 By Mouth completed 75 mg = 1 tab( s), PO (oral), bid, # 20 tab(s), Maintenance, Pharmacy: [facility]/pharmacy #[id number], 1 tab(s) PO (oral) bid [place] [facility] [place] [facility] Flonase Allergy Relief 50 mcg/actuation nasal spray,dickinson spension Fluticasone propionate 0.05 MG/ACTUAT Metered Dose Nasal [place] 06/08/2016 12:00:00 AM EDT NASAL completed Fluticason e propionate 0.05 MG/ACTUAT Metered Dose Nasal [place] [Flonase] [facility] trazodone 50 mg tablet trazodone HCl TABLET 1.00 tablet ORAL completed take 1 tablet by oral route every day at bedtime [facility] Hyoscyamine Sulfate 0.125 MG/ML Oral Nat ution HYOSCYAMINE SULFATE (unknown strength) HYOSCYAMINE SULFATE (unknown strength) ORAL completed take 1 milliliter by oral route every 4 hours as needed [facility] Previfem 0.25 mg-35 mcg tablet {21 (Ethinyl Estradiol 0.035 MG / norgestimate 0.25 MG Oral Tablet) / 7 (Inert Ingredients 1 MG Oral Tablet) } Pack TABLET 1.00 tablet ORAL completed Previfem 28 Day Pa ck [facility] Briellyn 0.4 mg-35 mcg tablet {21 (Ethinyl Estradiol 0 .035 MG / Norethindrone 0.4 MG Oral Tablet) / 7 (Inert Ingredients 1 MG Oral Tablet) } Pack TABLET 1.00 tablet ORAL completed Briellyn 28 Day Pa ck [facility] Metformin hydrochloride 500 MG Oral Tablet metformin 5 00 mg tablet metformin 500 mg tablet TABLET 1.00 tablet ORAL completed take 1 tablet by oral route 2 times every day with morning and evening meals [facility] Lactobacillus rhamnosus GG [id number] U NT Oral Capsule Culturelle 10 billion cell capsule Culturelle 10 billion cell capsule CAPSULE ORAL completed [facility] Clonazepam 1 MG Oral Tablet clonazepam 1 mg tablet clonazepam 1 mg tablet TABLET 1 tablet ORAL completed take 1 tablet by oral route 2 times every day [facility] methylphenidate ER 50 mg multiphase capsule 30-70,exte nded release methylphenidate HCl CAPSULE ORAL completed take 1 capsule by oral route every day before breakfast [facility] Insurance Providers Payer name Policy type / Coverage type Policy ID Covered green party ID Covered green party's relationship to soto Policy Soto Plan Information CAPITAL DIST PHYSICIANS [facility] [id number] SP [id number] CDPHP COMMERCIAL U [id number] Self 3 [id number] CAPITAL DIST PHYSICIANS [facility] [id number] CDPHP [id number] self [id number] Medicaid [id number] Self [id number] CDPHP [id number] Self [id number] MEDICAID NYS COMPUTER S [facility] [id number] A [id number] CDPHP COM [id number] F [id number] [facility] Organizational Contracts [id number] Self [id number] CDPHP [id number] self [id number] CDPHP COM [id number] F [id number] CDPHP COM [id number] F [id number] CDPHP Health Maintenance Organization (HMO) [id number] Family Dependent [id number] Medicaid [id number] Self [id number] CDPHP O 14 [id number] DE [id number] CDPHP COMMERCIAL U [id number] Self [id number] GOVERNMENTAL GENERIC B [id number] ORel [id number] MEDICAID M [id number] Self [id number] MEDICAID M [id number] Self [id number] Problems, Conditions, and Diagnoses Code Display Name Description Problem Type Effective Dates Data Source(s) [id number] Knee pain Knee pain Problem 06/29/2019 12:00:00 AM ED T [facility] ([facility]) Z72760 Nicotine dependence, cigarettes, uncompl icated Nicotine dependence, cigarettes, uncomplicated Diagnosis 11/07/2019 11:33:00 PM EDT [facility] N949 Unspecified condition associ ated with female genital organs and menstrual cycle Unspecified condition associated with fe male genital organs and menstrual cycle Diagnosis 11/07/2019 11:33:[address] [facility] N939 Abnormal uterine and vaginal bleeding, u nspecified Abnormal uterine and vaginal bleeding, unspecified Diagnosis 11/07/2019 11:33:00 PM EDT [facility] [id number] Pain in left knee Pain in left knee Diagnosis 06/29/2019 01:18:00 PM EDT [place] [facility], [facility] K59.00 Constipation, unspecified Constipation, unspecified Di agnosis 06/22/2019 12:00:00 AM EDT [facility] Z4889 Encounter for other specified surgical a ftercare Encounter for other specified surgical aftercare Diagnosis 05/30/2019 08:29:00 AM EDT [place] - [facility] fever x 2 days fever x 2 days Diagnosis 05/26/2019 01:33: 00 PM EDT [place] - [facility] left knee injury left knee injury Diagnosis 05/16/2019 05 :23:00 PM EDT [place] - [facility] R509 Fever, unspecified Fever, unspecified Diagnosis 0 02:05:00 PM EDT [place] - [facility] FEVER CONGESTION N/V FEVER CONGESTION N/V Diagnosis 05/12/2019 02:05:00 PM EDT [place] - [facility] J029 Acute pharyngitis, unspecified Acute pharyngitis, unsp ecified Diagnosis 05/12/2019 02:05:00 PM EDT [place] - [facility], [facility] VAS RC VAS RC Diagnosis 05/12/2019 12:53:00 PM ED T [place] - [facility], [facility] M7989 Other specified soft tissue disorders Ot her specified soft tissue disorders Diagnosis 05/12/2019 12:53:00 PM EDT [place] - [facility] N6452 Nipple discharge Nipple discharge Diagnosis 05/01/2019 08 :27:00 AM EST [place] - [facility] N644 Mastodynia Mastodynia Diagnosis 05/01/2019 08:27:00 AM ES T [place] - [facility], [facility] [id number] Other chcf (current) drug therapy O ther chcf (current) drug therapy Diagnosis 04/27/2019 01:15:00 PM EST [place] - [facility] Z803 Family history of malignant neoplasm of breast Family history of malignant neoplasm of breast Diagnosis 04/27/2019 01:15:00 PM EST [place] - [facility], [facility] Z3202 Encounter for test, result neg ative Encounter for test, result negative Diagnosis 04/27/2019 01:15:00 PM EST [place] - [facility] [id number] Personal history of nicotine dependence Personal history of nicotine dependence Diagnosis 04/27/2019 01:15:00 PM EST [place] - [facility] [id number] Other specified postprocedural states Ot her specified postprocedural states Diagnosis 04/27/2019 01:15:00 PM EST [place] - [facility], [facility] R110 Nausea Nausea Diagnosis 04/27/2019 01:15:00 PM ES T [place] - [facility] F329 Major depressive disorder, single episod e, unspecified Major depressive disorder, single episode, unspecified Diagnosis 04/27/2019 01:15:00 PM EST [place] - [facility], [facility] F419 Anxiety disorder, unspecified Anxiety disorder, unspec ified Diagnosis 04/27/2019 01:15:00 PM EST [place] - [facility], [facility] K2970 Gastritis, unspecified, without bleeding Gastritis, unspecified, without bleeding Diagnosis 04/27/2019 01:15:00 PM EST [place] - [facility], [facility] K219 Gastro-esophageal reflux disease without esophagitis Gastro-esophageal reflux disease without esophagitis Diagnosis 04/27/2019 01:15:00 PM ES T [place] - [facility], [facility] CHILLS/VOMITING/CHEST CONGESTION/PAIN CHILLS/VOM ITING/CHEST CONGESTION/PAIN Diagnosis 04/27/2019 01:15:00 PM EST [place] [facility] R079 Chest pain, unspecified Chest pain, unspecified Diagno sis 04/27/2019 01:15:00 PM EST [place] - [facility] [id number] Other instability, left knee Other instability, left k nee Diagnosis 04/24/2019 10:16:00 AM EST [place] - [facility] 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, 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, left knee Diagnosis 04/10/2019 07:46:00 AM EST [place] - [facility], [facility] F410 Panic disorder episodic paroxysmal an xiety Panic disorder episodic paroxysmal anxiety Diagnosis 04/10/2019 05:00:00 AM EST [place] - [facility] E282 Polycystic ovarian syndrome Polycystic ovarian syndrom e Diagnosis 04/10/2019 05:00:00 AM EST [place] - [facility] F909 Attention-deficit hyperactivity disorder , unspecified type Attention- deficit hyperactivity disorder, unspecified type Diagnosis 04/10 05:00:00 AM EST [place] - [facility] Z8041 Family history of malignant neoplasm of ovary Family history of malignant neoplasm of ovary Diagnosis 04/10/2019 05:00:00 AM EST [place] - [facility], [facility] Z880 Allergy status to penicillin Allergy status to penicil livier Diagnosis 04/10/2019 05:00:00 AM EST [place] - [facility], [facility] 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, 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, left knee Diagnosis 04/10/2019 05:00:00 AM EST [place] - [facility], [facility] MP MP Diagnosis 04/10/2019 05:00:00 AM ES T [place] - [facility], [facility] NICKOLAS NICKOLAS Diagnosis 04/10/2019 05:00:00 AM ES T [place] - [facility] M2352 Chronic instability of knee, left knee C hronic instability of knee, left knee Diagnosis 04/10/2019 05:00:00 AM EST [place] - [facility], [facility] PAT PHONE PAT PHONE Diagnosis 04/05/2019 04:00:00 AM ES T [place] - [facility], [facility] [id number] Sprain of medial collateral ligament of left knee, init Sprain of medial collateral ligament of left knee, init Diagnosis 04/04/2019 09:52:00 AM EST [place] - [facility], [facility] K589 Irritable bowel syndrome without diarrhe a Irritable bowel syndrome without diarrhea Diagnosis 04/03/2019 12:15:00 PM EST [place] - [facility], [facility] F418 Other specified anxiety disorders Other specifie d anxiety disorders Diagnosis 04/03/2019 12:15:00 PM EST [place] [facility] K2900 Acute gastritis without bleeding Acute gastritis without bleeding Diagnosis 04/03/2019 12:15:00 PM EST [place] [facility] VOMITING/ABD PAIN/UNABLE TO URINATE VOMITING/ABD PAIN/UNABLE TO URINATE Diagnosis 04/03/2019 12:15:00 PM EST [place] - [facility] R1032 Left lower quadrant pain Left lower quadrant pain Diag nosis 04/03/2019 12:15:00 PM EST [place] - [facility] BCC PRESLEY BCC PRESLEY Diagnosis 03/28/2019 04:00:00 AM ES T [place] - [facility] vomitting for a week vomitting for a week Diagnosis 03/26/2019 10:11:00 AM EST [place] - [facility] N390 Urinary tract infection, site not specif ied Urinary tract infection, site not specified Diagnosis 03/26/2019 10:11:00 AM EST [place] - [facility] N946 Dysmenorrhea, unspecified Dysmenorrhea, unspecified Di agnosis 02/18/2019 09:11:00 AM EST [place] - [facility], [facility] VOMITTING/RECTAL BLEEDING VOMITTING/RECTAL BLEEDING Di agnosis 02/18/2019 09:11:00 AM EST [place] - [facility], [facility] R1030 Lower abdominal pain, unspecified Lower abdomina l pain, unspecified Diagnosis 02/18/2019 09:11:00 AM EST [place] - [facility] Surgeries/Procedures Procedure Description Date Indications Data Source(s) POSTOP FOLLOW-UP VISIT POSTOP FOLLOW-UP VISIT 06/29/2019 12:00:00 A M EDT [place] - [facility], [facility] X-RAY EXAM OF KNEE 3 X-RAY EXAM OF KNEE 3 06/29/2019 12:00:00 AM ED T [place] - [facility], [facility] X-RAY EXAM OF KNEE 3 X-RAY EXAM OF KNEE 3 06/29/2019 12:00:00 AM ED T [place] - [facility], [facility] POSTOP FOLLOW-UP VISIT POSTOP FOLLOW-UP VISIT 06/29/2019 12:00:00 A M EDT [place] - [facility], [facility] X-Ray Knee Ap & Lateral W/Obliques Three Views 020 12:00:00 AM EDT [facility] ([facility]) OFFICE/OUTPATIENT VISIT EST OFFICE/OUTPATIENT VISIT EST 04/30 12:00:00 AM EDT [place] - [facility], [facility] OFFICE/OUTPATIENT VISIT EST OFFICE/OUTPATIENT VISIT EST 04/30 12:00:00 AM EDT [place] - [facility], [facility] X-RAY EXAM OF KNEE 3 X-RAY EXAM OF KNEE 3 05/16/2019 12:00:00 AM ED T [place] - [facility], [facility] OFFICE/OUTPATIENT VISIT EST OFFICE/OUTPATIENT VISIT EST 04/29 12:00:00 AM EDT [place] - [facility] X-RAY EXAM OF KNEE 3 X-RAY EXAM OF KNEE 3 05/16/2019 12:00:00 AM ED T [place] - [facility] OFFICE/OUTPATIENT VISIT EST OFFICE/OUTPATIENT VISIT EST 04/29 12:00:00 AM EDT [place] - [facility] X-RAY EXAM OF KNEE 3 X-RAY EXAM OF KNEE 3 05/16/2019 12:00:00 AM ED T [place] - [facility] X-RAY EXAM OF KNEE 3 X-RAY EXAM OF KNEE 3 05/16/2019 12:00:00 AM ED T [place] - [facility] X-RAY EXAM OF KNEE 3 X-RAY EXAM OF KNEE 3 05/16/2019 12:00:00 AM ED T [place] - [facility] RSV DNA/RNA AMP PROBE RSV DNA/RNA AMP PROBE 05/12/2019 12:00:00 AM EDT [place] - [facility] STREP A AG IA STREP A AG IA 05/12/2019 12:00:00 AM EDT [place] - [facility] EXTREMITY STUDY EXTREMITY STUDY 05/12/2019 12:00:00 AM EDT [place] - [facility] EMERGENCY DEPT VISIT EMERGENCY DEPT VISIT 05/12/2019 12:00:00 AM ED T [place] - [facility] INFLUENZA DNA AMP PROBE INFLUENZA DNA AMP PROBE 05/12/2019 12:00:00 AM EDT [place] - [facility] EMERGENCY DEPT VISIT EMERGENCY DEPT VISIT 05/12/2019 12:00:00 AM ED T [place] - [facility] RSV DNA/RNA AMP PROBE RSV DNA/RNA AMP PROBE 05/12/2019 12:00:00 AM EDT [place] - [facility], [facility] STREP A AG IA STREP A AG IA 05/12/2019 12:00:00 AM EDT [place] - [facility] INFLUENZA DNA AMP PROBE INFLUENZA DNA AMP PROBE 05/12/2019 12:00:00 AM EDT [place] - [facility] EXTREMITY STUDY EXTREMITY STUDY 05/12/2019 12:00:00 AM EDT [place] - [facility] STREP A AG IA STREP A AG IA 05/12/2019 12:00:00 AM EDT [place] - [facility] INFLUENZA DNA AMP PROBE INFLUENZA DNA AMP PROBE 05/12/2019 12:00:00 AM EDT [place] - [facility] EMERGENCY DEPT VISIT EMERGENCY DEPT VISIT 05/12/2019 12:00:00 AM ED T [place] - [facility] RSV DNA/RNA AMP PROBE RSV DNA/RNA AMP PROBE 05/12/2019 12:00:00 AM EDT [place] - [facility] EXTREMITY STUDY EXTREMITY STUDY 05/12/2019 12:00:00 AM EDT [place] - [facility] INFLUENZA DNA AMP PROBE INFLUENZA DNA AMP PROBE 05/12/2019 12:00:00 AM EDT [place] - [facility] EMERGENCY DEPT VISIT EMERGENCY DEPT VISIT 05/12/2019 12:00:00 AM ED T [place] - [facility] RSV DNA/RNA AMP PROBE RSV DNA/RNA AMP PROBE 05/12/2019 12:00:00 AM EDT [place] - [facility], [facility] STREP A AG IA STREP A AG IA 05/12/2019 12:00:00 AM EDT [place] - [facility] INFLUENZA DNA AMP PROBE INFLUENZA DNA AMP PROBE 05/12/2019 12:00:00 AM EDT [place] - [facility] EMERGENCY DEPT VISIT EMERGENCY DEPT VISIT 05/12/2019 12:00:00 AM ED T [place] - [facility], [facility] RSV DNA/RNA AMP PROBE RSV DNA/RNA AMP PROBE 05/12/2019 12:00:00 AM EDT [place] - [facility], [facility] STREP A AG IA STREP A AG IA 05/12/2019 12:00:00 AM EDT [place] [facility] THERAPEUTIC EXERCISES THERAPEUTIC EXERCISES 05/09/2019 12:00:00 AM EDT [place] [facility] THERAPEUTIC EXERCISES THERAPEUTIC EXERCISES 05/09/2019 12:00:00 AM EDT [place] - [facility] THERAPEUTIC EXERCISES THERAPEUTIC EXERCISES 05/09/2019 12:00:00 AM EDT [place] - [facility] Therapeutic, prophylactic, or diagnostic injection; Sub Cut/ IM 05/08/2019 12:00:00 AM EDT - 05/08/2019 12:00:00 AM EDT [facility] Toradol Inj Per 15 mg 05/08/2019 12:00:00 AM EDT - 05/08/2019 12:00:00 AM EDT [facility] Office/outpatient visit,est, mod 020 12:00:00 AM EDT - 05/08/2019 12:00:00 AM EDT [facility] THERAPEUTIC EXERCISES THERAPEUTIC EXERCISES 05/03/2019 12:00:00 AM EST [place] - [facility] THERAPEUTIC EXERCISES THERAPEUTIC EXERCISES 05/03/2019 12:00:00 AM EST [place] - [facility] THERAPEUTIC EXERCISES THERAPEUTIC EXERCISES 05/03/2019 12:00:00 AM EST [place] - [facility], [facility] OFFICE/OUTPATIENT VISIT EST OFFICE/OUTPATIENT VISIT EST 04/2019 12:00:00 AM EST [place] - [facility] OFFICE/OUTPATIENT VISIT EST OFFICE/OUTPATIENT VISIT EST 04/2019 12:00:00 AM EST [place] - [facility], [facility] ASSAY OF TROPONIN QUANT ASSAY OF TROPONIN QUANT 04/27/2019 12:00:00 AM EST [place] - [facility], [facility] CHORIONIC GONADOTROPIN ASSAY CHORIONIC GONADOTROPIN ASSAY 12:00:00 AM EST [place] - [facility], [facility] FIBRIN DEGRADATION QUANT FIBRIN DEGRADATION QUANT 04/27/2019 12:00: 00 AM EST [place] - [facility], [facility] COMPREHEN METABOLIC PANEL COMPREHEN METABOLIC PANEL 04/27/2019 1 2:00:00 AM EST [place] - [facility], [facility] EMERGENCY DEPT VISIT EMERGENCY DEPT VISIT 04/27/2019 12:00:00 AM ES T [place] - [facility], [facility] BLOOD COUNT COMPLETE AUTO&AUTO DIFRNTL WBC COUNT COMPLETE CB C W/AUTO DIFF WBC 04/27/2019 12:00:00 AM EST [place] - [facility] ELECTROCARDIOGRAM TRACING ELECTROCARDIOGRAM TRACING 04/27/2019 1 2:00:00 AM EST [place] - [facility], [facility] X-RAY EXAM CHEST 2 VIEWS X-RAY EXAM CHEST 2 VIEWS 04/27/2019 12:00: 00 AM EST [place] - [facility], [facility] ROUTINE VENIPUNCTURE ROUTINE VENIPUNCTURE 04/27/2019 12:00:00 AM ES T [place] - [facility], [facility] COMPREHEN METABOLIC PANEL COMPREHEN METABOLIC PANEL 04/27/2019 1 2:00:00 AM EST [place] - [facility], [facility] X-RAY EXAM CHEST 2 VIEWS X-RAY EXAM CHEST 2 VIEWS 04/27/2019 12:00: 00 AM EST [place] - [facility], [facility] FIBRIN DEGRADATION QUANT FIBRIN DEGRADATION QUANT 04/27/2019 12:00: 00 AM EST [place] - [facility], [facility] BLOOD COUNT COMPLETE AUTO&AUTO DIFRNTL WBC COUNT COMPLETE CB C W/AUTO DIFF WBC 04/27/2019 12:00:00 AM EST [place] - [facility] CHORIONIC GONADOTROPIN ASSAY CHORIONIC GONADOTROPIN ASSAY 12:00:00 AM EST [place] - [facility], [facility] EMERGENCY DEPT VISIT EMERGENCY DEPT VISIT 04/27/2019 12:00:00 AM ES T [place] - [facility], [facility] ROUTINE VENIPUNCTURE ROUTINE VENIPUNCTURE 04/27/2019 12:00:00 AM ES T [place] - [facility], [facility] ELECTROCARDIOGRAM TRACING ELECTROCARDIOGRAM TRACING 04/27/2019 1 2:00:00 AM EST [place] - [facility] ASSAY OF TROPONIN QUANT ASSAY OF TROPONIN QUANT 04/27/2019 12:00:00 AM EST [place] - [facility], [facility] ELECTROCARDIOGRAM TRACING ELECTROCARDIOGRAM TRACING 04/27/2019 1 2:00:00 AM EST [place] - [facility], [facility] BLOOD COUNT COMPLETE AUTO&AUTO DIFRNTL WBC COUNT COMPLETE CB C W/AUTO DIFF WBC 04/27/2019 12:00:00 AM EST [place] - [facility], [facility] EMERGENCY DEPT VISIT EMERGENCY DEPT VISIT 04/27/2019 12:00:00 AM ES T [place] - [facility], [facility] COMPREHEN METABOLIC PANEL COMPREHEN METABOLIC PANEL 04/27/2019 1 2:00:00 AM EST [place] - [facility], [facility] ROUTINE VENIPUNCTURE ROUTINE VENIPUNCTURE 04/27/2019 12:00:00 AM ES T [place] - [facility], [facility] CHORIONIC GONADOTROPIN ASSAY CHORIONIC GONADOTROPIN ASSAY 12:00:00 AM EST [place] - [facility], [facility] FIBRIN DEGRADATION QUANT FIBRIN DEGRADATION QUANT 04/27/2019 12:00: 00 AM EST [place] - [facility], [facility] X-RAY EXAM CHEST 2 VIEWS X-RAY EXAM CHEST 2 VIEWS 04/27/2019 12:00: 00 AM EST [place] - [facility], [facility] ASSAY OF TROPONIN QUANT ASSAY OF TROPONIN QUANT 04/27/2019 12:00:00 AM EST [place] - [facility], [facility] CHORIONIC GONADOTROPIN ASSAY CHORIONIC GONADOTROPIN ASSAY 12:00:00 AM EST [place] - [facility], [facility] COMPREHEN METABOLIC PANEL COMPREHEN METABOLIC PANEL 04/27/2019 1 2:00:00 AM EST [place] - [facility], [facility] BLOOD COUNT COMPLETE AUTO&AUTO DIFRNTL WBC COUNT COMPLETE CB C W/AUTO DIFF WBC 04/27/2019 12:00:00 AM EST [place] - [facility] FIBRIN DEGRADATION QUANT FIBRIN DEGRADATION QUANT 04/27/2019 12:00: 00 AM EST [place] - [facility], [facility] ASSAY OF TROPONIN QUANT ASSAY OF TROPONIN QUANT 04/27/2019 12:00:00 AM EST [place] - [facility], [facility] X-RAY EXAM CHEST 2 VIEWS X-RAY EXAM CHEST 2 VIEWS 04/27/2019 12:00: 00 AM EST [place] - [facility], [facility] ROUTINE VENIPUNCTURE ROUTINE VENIPUNCTURE 04/27/2019 12:00:00 AM ES T [place] - [facility], [facility] ELECTROCARDIOGRAM TRACING ELECTROCARDIOGRAM TRACING 04/27/2019 1 2:00:00 AM EST [place] [facility], [facility] EMERGENCY DEPT VISIT EMERGENCY DEPT VISIT 04/27/2019 12:00:00 AM ES T [place] - [facility], [facility] COMPREHEN METABOLIC PANEL COMPREHEN METABOLIC PANEL 04/27/2019 1 2:00:00 AM EST [place] - [facility], [facility] ROUTINE VENIPUNCTURE ROUTINE VENIPUNCTURE 04/27/2019 12:00:00 AM ES T [place] - [facility], [facility] CHORIONIC GONADOTROPIN ASSAY CHORIONIC GONADOTROPIN ASSAY 12:00:00 AM EST [place] - [facility] X-RAY EXAM CHEST 2 VIEWS X-RAY EXAM CHEST 2 VIEWS 04/27/2019 12:00: 00 AM EST [place] - [facility] FIBRIN DEGRADATION QUANT FIBRIN DEGRADATION QUANT 04/27/2019 12:00: 00 AM EST [place] - [facility] ELECTROCARDIOGRAM TRACING ELECTROCARDIOGRAM TRACING 04/27/2019 1 2:00:00 AM EST [place] - [facility] ASSAY OF TROPONIN QUANT ASSAY OF TROPONIN QUANT 04/27/2019 12:00:00 AM EST [place] - [facility] EMERGENCY DEPT VISIT EMERGENCY DEPT VISIT 04/27/2019 12:00:00 AM ES T [place] - [facility] BLOOD COUNT COMPLETE AUTO&AUTO DIFRNTL WBC COUNT COMPLETE CB C W/AUTO DIFF WBC 04/27/2019 12:00:00 AM EST [place] [facility] X-RAY EXAM OF KNEE 1 OR 2 X-RAY EXAM OF KNEE 1 OR 2 04/24/2019 1 2:00:00 AM EST [place] - [facility] POSTOP FOLLOW-UP VISIT POSTOP FOLLOW-UP VISIT 04/24/2019 12:00:00 A M EST [place] - [facility] X-RAY EXAM OF KNEE 1 OR 2 X-RAY EXAM OF KNEE 1 OR 2 04/24/2019 1 2:00:00 AM EST [place] - [facility] POSTOP FOLLOW-UP VISIT POSTOP FOLLOW-UP VISIT 04/24/2019 12:00:00 A M EST [place] - [facility] X-Ray Knee Ap & Lateral 04/24/2019 12:00:00 AM EST [facility] ([facility]) X-RAY EXAM OF KNEE 1 OR 2 X-RAY EXAM OF KNEE 1 OR 2 04/24/2019 1 2:00:00 AM EST [place] - [facility], [facility] POSTOP FOLLOW-UP VISIT POSTOP FOLLOW-UP VISIT 04/24/2019 12:00:00 A M EST [place] - [facility], [facility] X-RAY EXAM OF KNEE 1 OR 2 X-RAY EXAM OF KNEE 1 OR 2 04/24/2019 1 2:00:00 AM EST [place] - [facility], [facility] POSTOP FOLLOW-UP VISIT POSTOP FOLLOW-UP VISIT 04/24/2019 12:00:00 A M EST [place] - [facility], [facility] POSTOP FOLLOW-UP VISIT POSTOP FOLLOW-UP VISIT 04/24/2019 12:00:00 A M EST [place] - [facility], [facility] X-RAY EXAM OF KNEE 1 OR 2 X-RAY EXAM OF KNEE 1 OR 2 04/24/2019 1 2:00:00 AM EST [place] - [facility], [facility] Reposition Left Knee Joint, Open Approach Reposition L eft Knee Joint, Open Approach 04/10/2019 12:00:00 AM EST [place] - [facility], [facility] REVISION OF UNSTABLE KNEECAP REVISION OF UNSTABLE KNEECAP 12:00:00 AM EST [place] - [facility], [facility] left knee reconstruction left knee reconstruction 04/10/2019 12:00: 00 AM EST [place] - [facility], [facility] RECONSTRUCTION KNEE RECONSTRUCTION KNEE 04/10/2019 12:00:00 AM EST [place] - [facility], [facility] REVISION OF UNSTABLE KNEECAP REVISION OF UNSTABLE KNEECAP 12:00:00 AM EST [place] - [facility], [facility] Reposition Left Knee Joint, Open Approach Reposition L eft Knee Joint, Open Approach 04/10/2019 12:00:00 AM EST [place] - [facility], [facility] RECONSTRUCTION KNEE RECONSTRUCTION KNEE 04/10/2019 12:00:00 AM EST [place] - [facility], [facility] REVISION OF UNSTABLE KNEECAP REVISION OF UNSTABLE KNEECAP 12:00:00 AM EST [place] - [facility] left knee reconstruction left knee reconstruction 04/10/2019 12:00: 00 AM EST [place] - [facility] REVISION OF UNSTABLE KNEECAP REVISION OF UNSTABLE KNEECAP 12:00:00 AM EST [place] - [facility] Reconstruct Patella W/Extensor Realignment/Muscle Advance/Re lease 04/10/2019 12:00:00 AM EST [facility] ([facility]) Reconstruct Patella W/Extensor Realignment/Muscle Advance/Re lease 04/10/2019 12:00:00 AM EST [facility] ([facility]) left knee reconstruction left knee reconstruction 04/10/2019 12:00: 00 AM EST [place] - [facility], [facility] REVISION OF UNSTABLE KNEECAP REVISION OF UNSTABLE KNEECAP 12:00:00 AM EST [place] - [facility], [facility] RECONSTRUCTION KNEE RECONSTRUCTION KNEE 04/10/2019 12:00:00 AM EST [place] - [facility], [facility] REVISION OF UNSTABLE KNEECAP REVISION OF UNSTABLE KNEECAP 12:00:00 AM EST [place] - [facility] Reposition Left Knee Joint, Open Approach Reposition L eft Knee Joint, Open Approach 04/10/2019 12:00:00 AM EST [place] flore[place] - [facility] REVISION OF UNSTABLE KNEECAP REVISION OF UNSTABLE KNEECAP 12:00:00 AM EST [place] - [facility], [facility] RECONSTRUCTION KNEE RECONSTRUCTION KNEE 04/10/2019 12:00:00 AM EST [place] - [facility], [facility] REVISION OF UNSTABLE KNEECAP REVISION OF UNSTABLE KNEECAP 12:00:00 AM EST [place] - [facility] left knee reconstruction left knee reconstruction 04/10/2019 12:00: 00 AM EST [place] - [facility] Reposition Left Knee Joint, Open Approach Reposition L eft Knee Joint, Open Approach 04/10/2019 12:00:00 AM EST [place] - [facility] left knee reconstruction left knee reconstruction 04/10/2019 12:00: 00 AM EST [place] - [facility], [facility] REVISION OF UNSTABLE KNEECAP REVISION OF UNSTABLE KNEECAP 12:00:00 AM EST [place] - [facility], [facility] REVISION OF UNSTABLE KNEECAP REVISION OF UNSTABLE KNEECAP 12:00:00 AM EST [place] - [facility], [facility] Reposition Left Knee Joint, Open Approach Reposition L eft Knee Joint, Open Approach 04/10/2019 12:00:00 AM EST [place] - [facility], [facility] RECONSTRUCTION KNEE RECONSTRUCTION KNEE 04/10/2019 12:00:00 AM EST [place] - [facility], [facility] REVISION OF UNSTABLE KNEECAP REVISION OF UNSTABLE KNEECAP 12:00:00 AM EST [place] - [facility], [facility] REVISION OF UNSTABLE KNEECAP REVISION OF UNSTABLE KNEECAP 12:00:00 AM EST [place] - [facility] Reposition Left Knee Joint, Open Approach Reposition L eft Knee Joint, Open Approach 04/10/2019 12:00:00 AM EST [place] - [facility] RECONSTRUCTION KNEE RECONSTRUCTION KNEE 04/10/2019 12:00:00 AM EST [place] - [facility] OFFICE/OUTPATIENT VISIT EST OFFICE/OUTPATIENT VISIT EST 05/2019 12:00:00 AM EST [place] - [facility] OFFICE/OUTPATIENT VISIT EST OFFICE/OUTPATIENT VISIT EST 05/2019 12:00:00 AM EST [place] - [facility] OFFICE/OUTPATIENT VISIT EST OFFICE/OUTPATIENT VISIT EST 05/2019 12:00:00 AM EST [place] - [facility], [facility] OFFICE/OUTPATIENT VISIT EST OFFICE/OUTPATIENT VISIT EST 05/2019 12:00:00 AM EST [place] - [facility], [facility] OFFICE/OUTPATIENT VISIT EST OFFICE/OUTPATIENT VISIT EST 05/2019 12:00:00 AM EST [place] - [facility], [facility] OFFICE/OUTPATIENT VISIT EST OFFICE/OUTPATIENT VISIT EST 05/2019 12:00:00 AM EST [place] - [facility] ONDANSETRON HCL INJECTION ONDANSETRON HCL INJECTION 04/03/2019 1 2:00:00 AM EST [place] - [facility] URINE CULTURE/COLONY COUNT URINE CULTURE/COLONY COUNT 2019 12:00:00 AM EST [place] - [facility] C-REACTIVE PROTEIN C-REACTIVE PROTEIN 04/03/2019 12:00:00 AM EST [place] - [facility] EMERGENCY DEPT VISIT EMERGENCY DEPT VISIT 04/03/2019 12:00:00 AM ES T [place] - [facility] CT ABD & PELVIS W/O CONTRAST CT ABD & PELVIS W/O CONTRAST 12:00:00 AM EST [place] - [facility], [facility] THER/PROPH/DIAG INJ IV PUSH THER/PROPH/DIAG INJ IV PUSH 04/2019 12:00:00 AM EST [place] - [facility] ASSAY OF LIPASE ASSAY OF LIPASE 04/03/2019 12:00:00 AM EST [place] - [facility], [facility] BLOOD COUNT COMPLETE AUTO&AUTO DIFRNTL WBC COUNT COMPLETE CB C W/AUTO DIFF WBC 04/03/2019 12:00:00 AM EST [place] [facility] ROUTINE VENIPUNCTURE ROUTINE VENIPUNCTURE 04/03/2019 12:00:00 AM ES T [place] - [facility] COMPREHEN METABOLIC PANEL COMPREHEN METABOLIC PANEL 04/03/2019 1 2:00:00 AM EST [place] - [facility] URINALYSIS AUTO W/SCOPE URINALYSIS AUTO W/SCOPE 04/03/2019 12:00:00 AM EST [place] - [facility] CHORIONIC GONADOTROPIN ASSAY CHORIONIC GONADOTROPIN ASSAY 12:00:00 AM EST [place] - [facility], [facility] Catheterize for urine spec Catheterize for urine spec 2019 12:00:00 AM EST [place] - [facility], [facility] URINALYSIS AUTO W/SCOPE URINALYSIS AUTO W/SCOPE 04/03/2019 12:00:00 AM EST [place] - [facility] EMERGENCY DEPT VISIT EMERGENCY DEPT VISIT 04/03/2019 12:00:00 AM ES T [place] - [facility] ONDANSETRON HCL INJECTION ONDANSETRON HCL INJECTION 04/03/2019 1 2:00:00 AM EST [place] - [facility] URINE CULTURE/COLONY COUNT URINE CULTURE/COLONY COUNT 2019 12:00:00 AM EST [place] - [facility] C-REACTIVE PROTEIN C-REACTIVE PROTEIN 04/03/2019 12:00:00 AM EST [place] - [facility] ROUTINE VENIPUNCTURE ROUTINE VENIPUNCTURE 04/03/2019 12:00:00 AM ES T [place] - [facility] CHORIONIC GONADOTROPIN ASSAY CHORIONIC GONADOTROPIN ASSAY 12:00:00 AM EST [place] - [facility] Catheterize for urine spec Catheterize for urine spec 2019 12:00:00 AM EST [place] [facility] BLOOD COUNT COMPLETE AUTO&AUTO DIFRNTL WBC COUNT COMPLETE CB C W/AUTO DIFF WBC 04/03/2019 12:00:00 AM EST [place] [facility] COMPREHEN METABOLIC PANEL COMPREHEN METABOLIC PANEL 04/03/2019 1 2:00:00 AM EST [place] - [facility] CT ABD & PELVIS W/O CONTRAST CT ABD & PELVIS W/O CONTRAST 12:00:00 AM EST [place] - [facility] THER/PROPH/DIAG INJ IV PUSH THER/PROPH/DIAG INJ IV PUSH 04/2019 12:00:00 AM EST [place] - [facility], [facility] ASSAY OF LIPASE ASSAY OF LIPASE 04/03/2019 12:00:00 AM EST [place] - [facility] THER/PROPH/DIAG INJ IV PUSH THER/PROPH/DIAG INJ IV PUSH 04/2019 12:00:00 AM EST [place] - [facility] BLOOD COUNT COMPLETE AUTO&AUTO DIFRNTL WBC COUNT COMPLETE CB C W/AUTO DIFF WBC 04/03/2019 12:00:00 AM EST [place] [facility] CHORIONIC GONADOTROPIN ASSAY CHORIONIC GONADOTROPIN ASSAY 12:00:00 AM EST [place] - [facility] Catheterize for urine spec Catheterize for urine spec 2019 12:00:00 AM EST [place] - [facility], [facility] ASSAY OF LIPASE ASSAY OF LIPASE 04/03/2019 12:00:00 AM EST [place] - [facility] URINE CULTURE/COLONY COUNT URINE CULTURE/COLONY COUNT 2019 12:00:00 AM EST [place] - [facility] URINALYSIS AUTO W/SCOPE URINALYSIS AUTO W/SCOPE 04/03/2019 12:00:00 AM EST [place] - [facility] C-REACTIVE PROTEIN C-REACTIVE PROTEIN 04/03/2019 12:00:00 AM EST [place] - [facility], [facility] ROUTINE VENIPUNCTURE ROUTINE VENIPUNCTURE 04/03/2019 12:00:00 AM ES T [place] - [facility], [facility] ONDANSETRON HCL INJECTION ONDANSETRON HCL INJECTION 04/03/2019 1 2:00:00 AM EST [place] - [facility], [facility] COMPREHEN METABOLIC PANEL COMPREHEN METABOLIC PANEL 04/03/2019 1 2:00:00 AM EST [place] - [facility], [facility] CT ABD & PELVIS W/O CONTRAST CT ABD & PELVIS W/O CONTRAST 12:00:00 AM EST [place] - [facility], [facility] EMERGENCY DEPT VISIT EMERGENCY DEPT VISIT 04/03/2019 12:00:00 AM ES T [place] - [facility], [facility] BLOOD COUNT COMPLETE AUTO&AUTO DIFRNTL WBC COUNT COMPLETE CB C W/AUTO DIFF WBC 04/03/2019 12:00:00 AM EST [place] [facility] ONDANSETRON HCL INJECTION ONDANSETRON HCL INJECTION 04/03/2019 1 2:00:00 AM EST [place] - [facility], [facility] URINE CULTURE/COLONY COUNT URINE CULTURE/COLONY COUNT 2019 12:00:00 AM EST [place] - [facility], [facility] C-REACTIVE PROTEIN C-REACTIVE PROTEIN 04/03/2019 12:00:00 AM EST [place] - [facility], [facility] CHORIONIC GONADOTROPIN ASSAY CHORIONIC GONADOTROPIN ASSAY 12:00:00 AM EST [place] - [facility], [facility] ASSAY OF LIPASE ASSAY OF LIPASE 04/03/2019 12:00:00 AM EST [place] - [facility], [facility] THER/PROPH/DIAG INJ IV PUSH THER/PROPH/DIAG INJ IV PUSH 04/2019 12:00:00 AM EST [place] - [facility], [facility] Catheterize for urine spec Catheterize for urine spec 2019 12:00:00 AM EST [place] - [facility], [facility] COMPREHEN METABOLIC PANEL COMPREHEN METABOLIC PANEL 04/03/2019 1 2:00:00 AM EST [place] - [facility], [facility] URINALYSIS AUTO W/SCOPE URINALYSIS AUTO W/SCOPE 04/03/2019 12:00:00 AM EST [place] - [facility], [facility] ROUTINE VENIPUNCTURE ROUTINE VENIPUNCTURE 04/03/2019 12:00:00 AM ES T [place] - [facility], [facility] EMERGENCY DEPT VISIT EMERGENCY DEPT VISIT 04/03/2019 12:00:00 AM ES T [place] - [facility], [facility] CT ABD & PELVIS W/O CONTRAST CT ABD & PELVIS W/O CONTRAST 12:00:00 AM EST [place] - [facility], [facility] BLOOD COUNT COMPLETE AUTO&AUTO DIFRNTL WBC COUNT COMPLETE CB C W/AUTO DIFF WBC 04/03/2019 12:00:00 AM EST [place] [facility] ROUTINE VENIPUNCTURE ROUTINE VENIPUNCTURE 04/03/2019 12:00:00 AM ES T [place] - [facility] COMPREHEN METABOLIC PANEL COMPREHEN METABOLIC PANEL 04/03/2019 1 2:00:00 AM EST [place] - [facility], [facility] CT ABD & PELVIS W/O CONTRAST CT ABD & PELVIS W/O CONTRAST 12:00:00 AM EST [place] - [facility], [facility] URINALYSIS AUTO W/SCOPE URINALYSIS AUTO W/SCOPE 04/03/2019 12:00:00 AM EST [place] - [facility], [facility] C-REACTIVE PROTEIN C-REACTIVE PROTEIN 04/03/2019 12:00:00 AM EST [place] - [facility], [facility] ASSAY OF LIPASE ASSAY OF LIPASE 04/03/2019 12:00:00 AM EST [place] - [facility], [facility] Catheterize for urine spec Catheterize for urine spec 2019 12:00:00 AM EST [place] - [facility] ONDANSETRON HCL INJECTION ONDANSETRON HCL INJECTION 04/03/2019 1 2:00:00 AM EST [place] - [facility], [facility] URINE CULTURE/COLONY COUNT URINE CULTURE/COLONY COUNT 2019 12:00:00 AM EST [place] - [facility], [facility] THER/PROPH/DIAG INJ IV PUSH THER/PROPH/DIAG INJ IV PUSH 04/2019 12:00:00 AM EST [place] - [facility], [facility] CHORIONIC GONADOTROPIN ASSAY CHORIONIC GONADOTROPIN ASSAY 12:00:00 AM EST [place] - [facility], [facility] EMERGENCY DEPT VISIT EMERGENCY DEPT VISIT 04/03/2019 12:00:00 AM ES T [place] - [facility], [facility] THER/PROPH/DIAG INJ IV PUSH THER/PROPH/DIAG INJ IV PUSH 04/2019 12:00:00 AM EST [place] - [facility] C-REACTIVE PROTEIN C-REACTIVE PROTEIN 04/03/2019 12:00:00 AM EST [place] - [facility] COMPREHEN METABOLIC PANEL COMPREHEN METABOLIC PANEL 04/03/2019 1 2:00:00 AM EST [place] - [facility] ROUTINE VENIPUNCTURE ROUTINE VENIPUNCTURE 04/03/2019 12:00:00 AM ES T [place] - [facility] URINALYSIS AUTO W/SCOPE URINALYSIS AUTO W/SCOPE 04/03/2019 12:00:00 AM EST [place] - [facility] BLOOD COUNT COMPLETE AUTO&AUTO DIFRNTL WBC COUNT COMPLETE CB C W/AUTO DIFF WBC 04/03/2019 12:00:00 AM EST [place] [facility] EMERGENCY DEPT VISIT EMERGENCY DEPT VISIT 04/03/2019 12:00:00 AM ES T [place] - [facility], [facility] ONDANSETRON HCL INJECTION ONDANSETRON HCL INJECTION 04/03/2019 1 2:00:00 AM EST [place] - [facility], [facility] CHORIONIC GONADOTROPIN ASSAY CHORIONIC GONADOTROPIN ASSAY 12:00:00 AM EST [place] - [facility], [facility] URINE CULTURE/COLONY COUNT URINE CULTURE/COLONY COUNT 2019 12:00:00 AM EST [place] - [facility], [facility] Catheterize for urine spec Catheterize for urine spec 2019 12:00:00 AM EST [place] - [facility], [facility] CT ABD & PELVIS W/O CONTRAST CT ABD & PELVIS W/O CONTRAST 12:00:00 AM EST [place] - [facility], [facility] ASSAY OF LIPASE ASSAY OF LIPASE 04/03/2019 12:00:00 AM EST [place] - [facility], [facility] C-REACTIVE PROTEIN C-REACTIVE PROTEIN 04/03/2019 12:00:00 AM EST [place] - [facility], [facility] Catheterize for urine spec Catheterize for urine spec 2019 12:00:00 AM EST [place] - [facility] BLOOD COUNT COMPLETE AUTO&AUTO DIFRNTL WBC COUNT COMPLETE CB C W/AUTO DIFF WBC 04/03/2019 12:00:00 AM EST [place] [facility] COMPREHEN METABOLIC PANEL COMPREHEN METABOLIC PANEL 04/03/2019 1 2:00:00 AM EST [place] - [facility], [facility] CHORIONIC GONADOTROPIN ASSAY CHORIONIC GONADOTROPIN ASSAY 12:00:00 AM EST [place] - [facility], [facility] ONDANSETRON HCL INJECTION ONDANSETRON HCL INJECTION 04/03/2019 1 2:00:00 AM EST [place] - [facility], [facility] URINE CULTURE/COLONY COUNT URINE CULTURE/COLONY COUNT 2019 12:00:00 AM EST [place] - [facility], [facility] CT ABD & PELVIS W/O CONTRAST CT ABD & PELVIS W/O CONTRAST 12:00:00 AM EST [place] - [facility], [facility] ROUTINE VENIPUNCTURE ROUTINE VENIPUNCTURE 04/03/2019 12:00:00 AM ES T [place] - [facility], [facility] EMERGENCY DEPT VISIT EMERGENCY DEPT VISIT 04/03/2019 12:00:00 AM ES T [place] - [facility], [facility] URINALYSIS AUTO W/SCOPE URINALYSIS AUTO W/SCOPE 04/03/2019 12:00:00 AM EST [place] - [facility], [facility] THER/PROPH/DIAG INJ IV PUSH THER/PROPH/DIAG INJ IV PUSH 04/2019 12:00:00 AM EST [place] - [facility], [facility] ASSAY OF LIPASE ASSAY OF LIPASE 04/03/2019 12:00:00 AM EST [place] - [facility], [facility] URINE CULTURE/COLONY COUNT URINE CULTURE/COLONY COUNT 2019 12:00:00 AM EST [place] - [facility], [facility] OFFICE/OUTPATIENT VISIT EST OFFICE/OUTPATIENT VISIT EST 03/02 12:00:00 AM EST [place] - [facility], [facility] OFFICE/OUTPATIENT VISIT EST OFFICE/OUTPATIENT VISIT EST 03/02 12:00:00 AM EST [place] - [facility], [facility] URINE CULTURE/COLONY COUNT URINE CULTURE/COLONY COUNT 2019 12:00:00 AM EST [place] - [facility], [facility] URINE CULTURE/COLONY COUNT URINE CULTURE/COLONY COUNT 2019 12:00:00 AM EST [place] - [facility] URINE CULTURE/COLONY COUNT URINE CULTURE/COLONY COUNT 2019 12:00:00 AM EST [place] - [facility], [facility] URINE CULTURE/COLONY COUNT URINE CULTURE/COLONY COUNT 2019 12:00:00 AM EST [place] - [facility], [facility] URINE CULTURE/COLONY COUNT URINE CULTURE/COLONY COUNT 2019 12:00:00 AM EST [place] - [facility], [facility] URINE CULTURE/COLONY COUNT URINE CULTURE/COLONY COUNT 2019 12:00:00 AM EST [place] - [facility], [facility] URINE CULTURE/COLONY COUNT URINE CULTURE/COLONY COUNT 2019 12:00:00 AM EST [place] [facility], [facility] URINE CULTURE/COLONY COUNT URINE CULTURE/COLONY COUNT 2019 12:00:00 AM EST [place] [facility], [facility] CHORIONIC GONADOTROPIN ASSAY CHORIONIC GONADOTROPIN ASSAY 12:00:00 AM EST [place] [facility], [facility] ASSAY OF AMYLASE ASSAY OF AMYLASE 02/18/2019 12:00:00 AM EST [place] [facility], [facility] COMPREHEN METABOLIC PANEL COMPREHEN METABOLIC PANEL 02/18/2019 1 2:00:00 AM EST [place] [facility], [facility] EMERGENCY DEPT VISIT EMERGENCY DEPT VISIT 02/18/2019 12:00:00 AM ES T [place] [facility], [facility] CT ABD & PELV W/CONTRAST CT ABD & PELV W/CONTRAST 02/18/2019 12:00: 00 AM EST [place] [facility], [facility] THROMBOPLASTIN TIME PARTIAL THROMBOPLASTIN TIME PARTIAL 01/30 12:00:00 AM EST [place] [facility], [facility] TRANSVAGINAL US NON-OB TRANSVAGINAL US NON-OB 02/18/2019 12:00:00 A M EST [place] [facility], [facility] BLOOD COUNT COMPLETE AUTO&AUTO DIFRNTL WBC COUNT COMPLETE CB C W/AUTO DIFF WBC 02/18/2019 12:00:00 AM EST [place] [facility] C-REACTIVE PROTEIN C-REACTIVE PROTEIN 02/18/2019 12:00:00 AM EST [place] [facility], [facility] KETOROLAC TROMETHAMINE INJ KETOROLAC TROMETHAMINE INJ 2018 12:00:00 AM EST [place] [facility], [facility] ROUTINE VENIPUNCTURE ROUTINE VENIPUNCTURE 02/18/2019 12:00:00 AM ES T [place] - [facility], [facility] ROUTINE VENIPUNCTURE ROUTINE VENIPUNCTURE 02/18/2019 12:00:00 AM ES T [place] [facility], [facility] THER/PROPH/DIAG INJ IV PUSH THER/PROPH/DIAG INJ IV PUSH 01/30 12:00:00 AM EST [place] [facility], [facility] ASSAY OF LIPASE ASSAY OF LIPASE 02/18/2019 12:00:00 AM EST [place] [facility], [facility] EMERGENCY DEPT VISIT EMERGENCY DEPT VISIT 02/18/2019 12:00:00 AM ES T [place] [facility], [facility] C-REACTIVE PROTEIN C-REACTIVE PROTEIN 02/18/2019 12:00:00 AM EST [place] [facility], [facility] THROMBOPLASTIN TIME PARTIAL THROMBOPLASTIN TIME PARTIAL 01/30 12:00:00 AM EST [place] [facility], [facility] KETOROLAC TROMETHAMINE INJ KETOROLAC TROMETHAMINE INJ 2018 12:00:00 AM EST [place] [facility], [facility] ROUTINE VENIPUNCTURE ROUTINE VENIPUNCTURE 02/18/2019 12:00:00 AM ES T [place] [facility], [facility] CHORIONIC GONADOTROPIN ASSAY CHORIONIC GONADOTROPIN ASSAY 12:00:00 AM EST [place] [facility], [facility] ASSAY OF LIPASE ASSAY OF LIPASE 02/18/2019 12:00:00 AM EST [place] [facility], [facility] COMPREHEN METABOLIC PANEL COMPREHEN METABOLIC PANEL 02/18/2019 1 2:00:00 AM EST [place] [facility], [facility] BLOOD COUNT COMPLETE AUTO&AUTO DIFRNTL WBC COUNT COMPLETE CB C W/AUTO DIFF WBC 02/18/2019 12:00:00 AM EST [place] [facility] THER/PROPH/DIAG INJ IV PUSH THER/PROPH/DIAG INJ IV PUSH 01/30 12:00:00 AM EST [place] [facility], [facility] CT ABD & PELV W/CONTRAST CT ABD & PELV W/CONTRAST 02/18/2019 12:00: 00 AM EST [place] [facility], [facility] TRANSVAGINAL US NON-OB TRANSVAGINAL US NON-OB 02/18/2019 12:00:00 A M EST [place] - [facility], [facility] ASSAY OF AMYLASE ASSAY OF AMYLASE 02/18/2019 12:00:00 AM EST [place] - [facility], [facility] ROUTINE VENIPUNCTURE ROUTINE VENIPUNCTURE 02/18/2019 12:00:00 AM ES T [place] - [facility], [facility] THROMBOPLASTIN TIME PARTIAL THROMBOPLASTIN TIME PARTIAL 01/30 12:00:00 AM EST [place] [facility], [facility] KETOROLAC TROMETHAMINE INJ KETOROLAC TROMETHAMINE INJ 2018 12:00:00 AM EST [place] - [facility], [facility] ROUTINE VENIPUNCTURE ROUTINE VENIPUNCTURE 02/18/2019 12:00:00 AM ES T [place] - [facility], [facility] THER/PROPH/DIAG INJ IV PUSH THER/PROPH/DIAG INJ IV PUSH 01/30 12:00:00 AM EST [place] [facility], [facility] CHORIONIC GONADOTROPIN ASSAY CHORIONIC GONADOTROPIN ASSAY 12:00:00 AM EST [place] - [facility] TRANSVAGINAL US NON-OB TRANSVAGINAL US NON-OB 02/18/2019 12:00:00 A M EST [place] - [facility], [facility] BLOOD COUNT COMPLETE AUTO&AUTO DIFRNTL WBC COUNT COMPLETE CB C W/AUTO DIFF WBC 02/18/2019 12:00:00 AM EST [place] [facility] ROUTINE VENIPUNCTURE ROUTINE VENIPUNCTURE 02/18/2019 12:00:00 AM ES T [place] - [facility], [facility] EMERGENCY DEPT VISIT EMERGENCY DEPT VISIT 02/18/2019 12:00:00 AM ES T [place] - [facility], [facility] ASSAY OF LIPASE ASSAY OF LIPASE 02/18/2019 12:00:00 AM EST [place] - [facility], [facility] CT ABD & PELV W/CONTRAST CT ABD & PELV W/CONTRAST 02/18/2019 12:00: 00 AM EST [place] [facility] COMPREHEN METABOLIC PANEL COMPREHEN METABOLIC PANEL 02/18/2019 1 2:00:00 AM EST [place] - [facility], [facility] ASSAY OF AMYLASE ASSAY OF AMYLASE 02/18/2019 12:00:00 AM EST [place] - [facility], [facility] C-REACTIVE PROTEIN C-REACTIVE PROTEIN 02/18/2019 12:00:00 AM EST [place] - [facility], [facility] ROUTINE VENIPUNCTURE ROUTINE VENIPUNCTURE 02/18/2019 12:00:00 AM ES T [place] - [facility], [facility] COMPREHEN METABOLIC PANEL COMPREHEN METABOLIC PANEL 02/18/2019 1 2:00:00 AM EST [place] - [facility], [facility] CHORIONIC GONADOTROPIN ASSAY CHORIONIC GONADOTROPIN ASSAY 12:00:00 AM EST [place] - [facility], [facility] ROUTINE VENIPUNCTURE ROUTINE VENIPUNCTURE 02/18/2019 12:00:00 AM ES T [place] - [facility], [facility] C-REACTIVE PROTEIN C-REACTIVE PROTEIN 02/18/2019 12:00:00 AM EST [place] - [facility], [facility] ASSAY OF LIPASE ASSAY OF LIPASE 02/18/2019 12:00:00 AM EST [place] - [facility], [facility] ASSAY OF AMYLASE ASSAY OF AMYLASE 02/18/2019 12:00:00 AM EST [place] [facility], [facility] THER/PROPH/DIAG INJ IV PUSH THER/PROPH/DIAG INJ IV PUSH 01/30 12:00:00 AM EST [place] - [facility], [facility] KETOROLAC TROMETHAMINE INJ KETOROLAC TROMETHAMINE INJ 2018 12:00:00 AM EST [place] - [facility], [facility] CT ABD & PELV W/CONTRAST CT ABD & PELV W/CONTRAST 02/18/2019 12:00: 00 AM EST [place] - [facility], [facility] EMERGENCY DEPT VISIT EMERGENCY DEPT VISIT 02/18/2019 12:00:00 AM ES T [place] [facility], [facility] THROMBOPLASTIN TIME PARTIAL THROMBOPLASTIN TIME PARTIAL 01/30 12:00:00 AM EST [place] [facility], [facility] BLOOD COUNT COMPLETE AUTO&AUTO DIFRNTL WBC COUNT COMPLETE CB C W/AUTO DIFF WBC 02/18/2019 12:00:00 AM EST [place] [facility] TRANSVAGINAL US NON-OB TRANSVAGINAL US NON-OB 02/18/2019 12:00:00 A M EST [place] [facility], [facility] THROMBOPLASTIN TIME PARTIAL THROMBOPLASTIN TIME PARTIAL 01/30 12:00:00 AM EST [place] - [facility], [facility] CHORIONIC GONADOTROPIN ASSAY CHORIONIC GONADOTROPIN ASSAY 12:00:00 AM EST [place] - [facility], [facility] ROUTINE VENIPUNCTURE ROUTINE VENIPUNCTURE 02/18/2019 12:00:00 AM ES T [place] - [facility], [facility] ROUTINE VENIPUNCTURE ROUTINE VENIPUNCTURE 02/18/2019 12:00:00 AM ES T [place] - [facility], [facility] ASSAY OF AMYLASE ASSAY OF AMYLASE 02/18/2019 12:00:00 AM EST [place] - [facility], [facility] BLOOD COUNT COMPLETE AUTO&AUTO DIFRNTL WBC COUNT COMPLETE CB C W/AUTO DIFF WBC 02/18/2019 12:00:00 AM EST [place] [facility] THER/PROPH/DIAG INJ IV PUSH THER/PROPH/DIAG INJ IV PUSH 01/30 12:00:00 AM EST [place] - [facility], [facility] ASSAY OF LIPASE ASSAY OF LIPASE 02/18/2019 12:00:00 AM EST [place] - [facility], [facility] C-REACTIVE PROTEIN C-REACTIVE PROTEIN 02/18/2019 12:00:00 AM EST [place] - [facility], [facility] CT ABD & PELV W/CONTRAST CT ABD & PELV W/CONTRAST 02/18/2019 12:00: 00 AM EST [place] - [facility], [facility] TRANSVAGINAL US NON-OB TRANSVAGINAL US NON-OB 02/18/2019 12:00:00 A M EST [place] - [facility], [facility] COMPREHEN METABOLIC PANEL COMPREHEN METABOLIC PANEL 02/18/2019 1 2:00:00 AM EST [place] - [facility], [facility] KETOROLAC TROMETHAMINE INJ KETOROLAC TROMETHAMINE INJ 2018 12:00:00 AM EST [place] - [facility], [facility] EMERGENCY DEPT VISIT EMERGENCY DEPT VISIT 02/18/2019 12:00:00 AM ES T [place] - [facility], [facility] EMERGENCY DEPT VISIT EMERGENCY DEPT VISIT 02/18/2019 12:00:00 AM ES T [place] - [facility], [facility] COMPREHEN METABOLIC PANEL COMPREHEN METABOLIC PANEL 02/18/2019 1 2:00:00 AM EST [place] - [facility], [facility] TRANSVAGINAL US NON-OB TRANSVAGINAL US NON-OB 02/18/2019 12:00:00 A M EST [place] - [facility], [facility] KETOROLAC TROMETHAMINE INJ KETOROLAC TROMETHAMINE INJ 2018 12:00:00 AM EST [place] - [facility], [facility] ROUTINE VENIPUNCTURE ROUTINE VENIPUNCTURE 02/18/2019 12:00:00 AM ES T [place] - [facility], [facility] CHORIONIC GONADOTROPIN ASSAY CHORIONIC GONADOTROPIN ASSAY 12:00:00 AM EST [place] - [facility], [facility] ASSAY OF LIPASE ASSAY OF LIPASE 02/18/2019 12:00:00 AM EST [place] - [facility], [facility] THER/PROPH/DIAG INJ IV PUSH THER/PROPH/DIAG INJ IV PUSH 01/30 12:00:00 AM EST [place] - [facility], [facility] ASSAY OF AMYLASE ASSAY OF AMYLASE 02/18/2019 12:00:00 AM EST [place] - [facility], [facility] BLOOD COUNT COMPLETE AUTO&AUTO DIFRNTL WBC COUNT COMPLETE CB C W/AUTO DIFF WBC 02/18/2019 12:00:00 AM EST [place] [facility] C-REACTIVE PROTEIN C-REACTIVE PROTEIN 02/18/2019 12:00:00 AM EST [place] - [facility] ROUTINE VENIPUNCTURE ROUTINE VENIPUNCTURE 02/18/2019 12:00:00 AM ES T [place] - [facility] CT ABD & PELV W/CONTRAST CT ABD & PELV W/CONTRAST 02/18/2019 12:00: 00 AM EST [place] - [facility], [facility] THROMBOPLASTIN TIME PARTIAL THROMBOPLASTIN TIME PARTIAL 01/30 12:00:00 AM EST [place] - [facility], [facility] ASSAY OF AMYLASE ASSAY OF AMYLASE 02/18/2019 12:00:00 AM EST [place] - [facility], [facility] ROUTINE VENIPUNCTURE ROUTINE VENIPUNCTURE 02/18/2019 12:00:00 AM ES T [place] - [facility], [facility] COMPREHEN METABOLIC PANEL COMPREHEN METABOLIC PANEL 02/18/2019 1 2:00:00 AM EST [place] - [facility] BLOOD COUNT COMPLETE AUTO&AUTO DIFRNTL WBC COUNT COMPLETE CB C W/AUTO DIFF WBC 02/18/2019 12:00:00 AM EST [place] [facility] THER/PROPH/DIAG INJ IV PUSH THER/PROPH/DIAG INJ IV PUSH 01/30 12:00:00 AM EST [place] [facility] CHORIONIC GONADOTROPIN ASSAY CHORIONIC GONADOTROPIN ASSAY 12:00:00 AM EST [place] - [facility] KETOROLAC TROMETHAMINE INJ KETOROLAC TROMETHAMINE INJ 2018 12:00:00 AM EST [place] - [facility], [facility] THROMBOPLASTIN TIME PARTIAL THROMBOPLASTIN TIME PARTIAL 01/30 12:00:00 AM EST [place] - [facility], [facility] ASSAY OF LIPASE ASSAY OF LIPASE 02/18/2019 12:00:00 AM EST [place] - [facility], [facility] C-REACTIVE PROTEIN C-REACTIVE PROTEIN 02/18/2019 12:00:00 AM EST [place] - [facility], [facility] ROUTINE VENIPUNCTURE ROUTINE VENIPUNCTURE 02/18/2019 12:00:00 AM ES T [place] - [facility], [facility] TRANSVAGINAL US NON-OB TRANSVAGINAL US NON-OB 02/18/2019 12:00:00 A M EST [place] [facility], [facility] EMERGENCY DEPT VISIT EMERGENCY DEPT VISIT 02/18/2019 12:00:00 AM ES T [place] [facility], [facility] CT ABD & PELV W/CONTRAST CT ABD & PELV W/CONTRAST 02/18/2019 12:00: 00 AM EST [place] - [facility], [facility] EMERGENCY DEPT VISIT EMERGENCY DEPT VISIT 02/18/2019 12:00:00 AM ES T [place] - [facility], [facility] KETOROLAC TROMETHAMINE INJ KETOROLAC TROMETHAMINE INJ 2018 12:00:00 AM EST [place] [facility], [facility] C-REACTIVE PROTEIN C-REACTIVE PROTEIN 02/18/2019 12:00:00 AM EST [place] [facility], [facility] COMPREHEN METABOLIC PANEL COMPREHEN METABOLIC PANEL 02/18/2019 1 2:00:00 AM EST [place] [facility], [facility] CT ABD & PELV W/CONTRAST CT ABD & PELV W/CONTRAST 02/18/2019 12:00: 00 AM EST [place] - [facility], [facility] ROUTINE VENIPUNCTURE ROUTINE VENIPUNCTURE 02/18/2019 12:00:00 AM ES T [place] - [facility], [facility] CHORIONIC GONADOTROPIN ASSAY CHORIONIC GONADOTROPIN ASSAY 12:00:00 AM EST [place] [facility] ROUTINE VENIPUNCTURE ROUTINE VENIPUNCTURE 02/18/2019 12:00:00 AM ES T [place] [facility], [facility] ASSAY OF AMYLASE ASSAY OF AMYLASE 02/18/2019 12:00:00 AM EST [place] [facility], [facility] THROMBOPLASTIN TIME PARTIAL THROMBOPLASTIN TIME PARTIAL 01/30 12:00:00 AM EST [place] [facility] TRANSVAGINAL US NON-OB TRANSVAGINAL US NON-OB 02/18/2019 12:00:00 A M EST [place] - [facility], [facility] ASSAY OF LIPASE ASSAY OF LIPASE 02/18/2019 12:00:00 AM EST [place] [facility] BLOOD COUNT COMPLETE AUTO&AUTO DIFRNTL WBC COUNT COMPLETE CB C W/AUTO DIFF WBC 02/18/2019 12:00:00 AM EST [place] [facility] THER/PROPH/DIAG INJ IV PUSH THER/PROPH/DIAG INJ IV PUSH 01/30 12:00:00 AM EST [place] [facility], [facility] CHORIONIC GONADOTROPIN ASSAY CHORIONIC GONADOTROPIN ASSAY 12:00:00 AM EST [place] [facility] THROMBOPLASTIN TIME PARTIAL THROMBOPLASTIN TIME PARTIAL 01/30 12:00:00 AM EST [place] [facility] C-REACTIVE PROTEIN C-REACTIVE PROTEIN 02/18/2019 12:00:00 AM EST [place] [facility] ASSAY OF LIPASE ASSAY OF LIPASE 02/18/2019 12:00:00 AM EST [place] [facility] THER/PROPH/DIAG INJ IV PUSH THER/PROPH/DIAG INJ IV PUSH 01/30 12:00:00 AM EST [place] [facility] COMPREHEN METABOLIC PANEL COMPREHEN METABOLIC PANEL 02/18/2019 1 2:00:00 AM EST [place] - [facility], [facility] ROUTINE VENIPUNCTURE ROUTINE VENIPUNCTURE 02/18/2019 12:00:00 AM ES T [place] [facility], [facility] EMERGENCY DEPT VISIT EMERGENCY DEPT VISIT 02/18/2019 12:00:00 AM ES T [place] [facility], [facility] TRANSVAGINAL US NON-OB TRANSVAGINAL US NON-OB 02/18/2019 12:00:00 A M EST [place] [facility], [facility] BLOOD COUNT COMPLETE AUTO&AUTO DIFRNTL WBC COUNT COMPLETE CB C W/AUTO DIFF WBC 02/18/2019 12:00:00 AM EST [place] [facility] CT ABD & PELV W/CONTRAST CT ABD & PELV W/CONTRAST 02/18/2019 12:00: 00 AM EST [place] [facility], [facility] KETOROLAC TROMETHAMINE INJ KETOROLAC TROMETHAMINE INJ 2018 12:00:00 AM EST [place] [facility], [facility] ROUTINE VENIPUNCTURE ROUTINE VENIPUNCTURE 02/18/2019 12:00:00 AM ES T [place] [facility], [facility] ASSAY OF AMYLASE ASSAY OF AMYLASE 02/18/2019 12:00:00 AM EST [place] [facility], [facility] COMPREHEN METABOLIC PANEL COMPREHEN METABOLIC PANEL 02/18/2019 1 2:00:00 AM EST [place] [facility], [facility] CHORIONIC GONADOTROPIN ASSAY CHORIONIC GONADOTROPIN ASSAY 12:00:00 AM EST [place] [facility], [facility] THROMBOPLASTIN TIME PARTIAL THROMBOPLASTIN TIME PARTIAL 01/30 12:00:00 AM EST [place] [facility], [facility] TRANSVAGINAL US NON-OB TRANSVAGINAL US NON-OB 02/18/2019 12:00:00 A M EST [place] [facility], [facility] EMERGENCY DEPT VISIT EMERGENCY DEPT VISIT 02/18/2019 12:00:00 AM ES T [place] [facility], [facility] KETOROLAC TROMETHAMINE INJ KETOROLAC TROMETHAMINE INJ 2018 12:00:00 AM EST [place] [facility] ROUTINE VENIPUNCTURE ROUTINE VENIPUNCTURE 02/18/2019 12:00:00 AM ES T [place] [facility], [facility] THER/PROPH/DIAG INJ IV PUSH THER/PROPH/DIAG INJ IV PUSH 01/30 12:00:00 AM EST [place] [facility], [facility] C-REACTIVE PROTEIN C-REACTIVE PROTEIN 02/18/2019 12:00:00 AM EST [place] [facility] BLOOD COUNT COMPLETE AUTO&AUTO DIFRNTL WBC COUNT COMPLETE CB C W/AUTO DIFF WBC 02/18/2019 12:00:00 AM EST [place] [facility], [facility] ROUTINE VENIPUNCTURE ROUTINE VENIPUNCTURE 02/18/2019 12:00:00 AM ES T [place] [facility] CT ABD & PELV W/CONTRAST CT ABD & PELV W/CONTRAST 02/18/2019 12:00: 00 AM EST [place] [facility] ASSAY OF AMYLASE ASSAY OF AMYLASE 02/18/2019 12:00:00 AM EST [place] [facility], [facility] ASSAY OF LIPASE ASSAY OF LIPASE 02/18/2019 12:00:00 AM EST [place] [facility], [facility] C-REACTIVE PROTEIN C-REACTIVE PROTEIN 02/18/2019 12:00:00 AM EST [place] [facility], [facility] ROUTINE VENIPUNCTURE ROUTINE VENIPUNCTURE 02/18/2019 12:00:00 AM ES T [place] [facility] THROMBOPLASTIN TIME PARTIAL THROMBOPLASTIN TIME PARTIAL 01/30 12:00:00 AM EST [place] [facility], [facility] BLOOD COUNT COMPLETE AUTO&AUTO DIFRNTL WBC COUNT COMPLETE CB C W/AUTO DIFF WBC 02/18/2019 12:00:00 AM EST [place] [facility], [facility] EMERGENCY DEPT VISIT EMERGENCY DEPT VISIT 02/18/2019 12:00:00 AM ES T [place] [facility], [facility] ROUTINE VENIPUNCTURE ROUTINE VENIPUNCTURE 02/18/2019 12:00:00 AM ES T [place] [facility], [facility] ASSAY OF LIPASE ASSAY OF LIPASE 02/18/2019 12:00:00 AM EST [place] [facility], [facility] THER/PROPH/DIAG INJ IV PUSH THER/PROPH/DIAG INJ IV PUSH 01/30 12:00:00 AM EST [place] [facility], [facility] ASSAY OF AMYLASE ASSAY OF AMYLASE 02/18/2019 12:00:00 AM EST [place] [facility], [facility] CHORIONIC GONADOTROPIN ASSAY CHORIONIC GONADOTROPIN ASSAY 12:00:00 AM EST [place] [facility], [facility] COMPREHEN METABOLIC PANEL COMPREHEN METABOLIC PANEL 02/18/2019 1 2:00:00 AM EST [place] [facility], [facility] CT ABD & PELV W/CONTRAST CT ABD & PELV W/CONTRAST 02/18/2019 12:00: 00 AM EST [place] [facility], [facility] TRANSVAGINAL US NON-OB TRANSVAGINAL US NON-OB 02/18/2019 12:00:00 A M EST [place] [facility], [facility] KETOROLAC TROMETHAMINE INJ KETOROLAC TROMETHAMINE INJ 2018 12:00:00 AM EST [place] [facility], [facility] Results ID Date Data Source [id number] 12/20/2019 04:52:57 PM EDT [facility] Name Value Range Interpretation Code Description Data Arianne rce(s) Supporting Document(s) Progress Note [facility] [id number] lbm [file] [id number] [file] [id number] ID Date Data Source [id number] 11/07/2019 11:33:[address] [facility] [address] [facility] Emergency Department [address] [place] [address] Phone #: atp- [phone] 11/07/2019 23:28 Patient: BERKLEY LOPEZ Sex: F [...] 25 mg M.D.;(NOW x1, HIGH [address] [facility] Emergency Department [address] [place] [address] Phone #: ext- [phone] 11/07/2019 23:28 Patient: BERKLEY LOPEZ Sex: F : 2000 Age: 19yALERTMEDICATION)Toradol 15 mg IVP 23:55 11/07/2019 00:09 11/08/2019X1 dose: 15 mg Ronda Garcia RN(NOW x1) Alex;GENERAL ORDERSOrder Description Priority Entered Acknowledged InitialedNPO 23:55 11/07/2019 23:56 Ronda Napier RN, M.D.;Saline Lock 23:55 11/07/2019 23:56 Ronda Napier RN, M.D.;[Electronically signed by Ronda Garcia M.D. (01:27 11/08/2019)][Electronically signed by Jennifer Oleary R.N. (:11/08/2019)][Electronically locked by Jennifer Oleary R.N. (05:11/08/2019)] Name Value Range Interpretation Code Description Data Arianne rce(s) Supporting Document(s) ID Date Data Source [id number] 11/07/2019 11:33:[address] [facility] [address] [facility] Emergency Department [address] [place] [address] Phone #: ext- [phone] 11/07/2019 23:28 Patient: [...] Dispense 14 tablet.Refills: 2. Substitution permitted.[id number] [address], [place] [id number]. . -- Ronda Garcia M.D. Name Value Range Interpretation Code Description Data Arianne rce(s) Supporting Document(s) ID Date Data Source [id number] 11/07/2019 11:33:[address] [facility] [address] [facility] Emergency Department [address] [place] [address] Phone #: ext- [phone] 11/07/2019 23:28 Patient: BERKLEY LOPEZ Sex: F : 2000 Age: 19yWeight: 106.5 kgHeight/Length: 66 inBMI: 37.9ALLERGIES: Penicillins Date/Time Medication Administered Medication OrderedStart NS [IV] NS IV 1000 mL Bolus: : Bolus [id number]:11/08/2019 Dose: IV Fluids mL (X1)Tanner Hopson RN [...] rce(s) Supporting Document(s) ID Date Data Source [id number] 11/07/2019 11:33:[address] [facility] [address] [facility] Emergency Department [address] [place] [address] Phone #: ext- [phone] 11/07/2019 23:28 Patient: BERKLEY LOPEZ Sex: F : 2000 Age: 19yPrimary dysmenorrheaINSTRUCTIONSDrink plenty of fluids. Do not smoke. No alcohol.Warnings: Further evaluation is necessary ([facility]). It is very important to follow up [...] Dispense 14 tablet.Refills: 2. Substitution permitted.Pharmacy - [facility] #[id number] - [address], [place] [id number]. .Follow-up:Return to the emergency department as needed. Follow up with your healthcare provider in three even ifwell. Call for an appointment. Reason for referral: evaluation and treatment. Summary of care provided topatient via paper. Follow up with a railroad mechanic in three days even if well. Call for an appointment.Reason for referral: evaluation and treatment. Summary of care provided to patient via paper.Understanding of the discharge instructions verbalized by patient. Expected course of illness, dischargeinstructions, activity level, diet, prescriptions x1, follow-up appointment and risks and benefits of treatmentre viewed with patient and understanding verbalized. Agrees to plan of care.Follow- up with: [facility], , , [address] [place] [address], [facility] Follow up in three days even if well. Call for an appointment. Reason for referral: evaluation andtreatment. Summary of care provided to patient via paper. [address] [facility] Emergency Department [address] [place] [address] Phone #: ext- [phone] 11/07/2019 23:28 Patient: BERKLEY LOPEZ Sex: F [...] the uterus (not cancer) [address] [facility] Emergency Department [address] [place] [address] Phone #: ext- [phone] 11/07/2019 23:28 Patient: [...] or occurs between periods [address] [facility] Emergency Department [address] [place] [address] Phone #: ext- [phone] 11/07/2019 23:28 Patient: BERKLEY LOPEZ Sex: F : 2000 Age: 19y Unusual vaginal discharge between periods Bleeding becomes heavy (soaking more than 1 pad or tampon every hour for 3 hours) Passage of pink or rodriguez tissue from the vagina [id number] [employer]. [address] [place] [address]. All rights reserved. This information is not intended as asubstitute for professional medical care. Always follow your healthcare professional's instructions. You have been given the following additional information: Painful Menstrual Periods (Dysmenorrhea)(Electronically signed by Ronda Garcia M.D. 11/08/2019 01:27) Name Value Range Interpretation Code Description Data Arianne rce(s) Supporting Document(s) ID Date Data Source [id number] 11/07/2019 11:33:[address] [facility] 1 Clinical Report - Nurses [facility] Emergency Department [address] [place] [address] Phone #: ext- [phone] 11/07/2019 23:28 Patient: BERKLEY LOPEZ Sex: F : 2000 Age: 19yTRIAGEArrived by private vehicle. Historian: patient.Triage time: 23:30 11/07/2019.Chief Complaint: PELVIC PAIN and VAGINAL BLEED.Onset. (3 days ago). ( Seen at [facility] for same, spotting this morning. This afternoon she noticed it gettingworse. Was dizzy when watching TV tonight. States that she went through 4 pads today, and has a"couple" golf ball sized clots before. Has PCOS, so her periods are irregular. States that she called margarethhas not scheduled a PYTHON PROGRAMMER follow up yet.). ( Has had 3 [...] SURGERIES:.Knee Surgery. 2 Clinical Report - Nurses [facility] Emergency Department [address] [place] [address] Phone #: ext- [phone] 11/07/2019 23:28 Patient: [...] Hopson R.N. Patient gowned. --23:42 11/07/19 Jennifer Hposon R.N. 23:56 11/07/2019 Site #2 started via [...] site #2 3 Clinical Report - Nurses [facility] Emergency Department [address] [place] [address] Phone #: [phone] ext- [phone] 11/07/2019 23:28 Patient: BERKLEY LOPEZ Sex: F [...] #1 completed. Total amount infused: 1000 mL. --01:11/08/19 Jennifer Hopson R.N. 01:11/08/19. PELVIC EXAM: Pelvic exam performed by ED physician. Assisted by one nurse. Preparation: patient placed in lithotomy position. Procedure: speculum exam. No vaginal discharge noted. No vaginal bleeding noted. Status post-procedure: she was stable. Patient tolerated the procedure. Total time of assist / procedure: 15 minutes. --01:11/08/19 Jennifer Hopson R.N.DISPOSITION / DISCHARGE 01:11/08/2019 Site #2 removed upon discharge. Bandage applied. --01:11/08/19 Jennifer Hopson R.N. Condition at departure: improved and stable. No learning barriers present. Follow up contact number WWW. Patient verbalized understanding. Written instructions provided in Panamanian. The patient was discharged by the physician. She was discharged home. She left ambulatory and via private vehicle. Parent driving. --01:11/08/19 Jennifer Hopson R.N. 01:11/08/19. BP: 122/81. MAP: 94. HR: 88. RR: 16. O2 saturation: 99%. Temp: 98 F. Pain level now: 05/08. --01:16 11/08/19 Jennifer Hopson R.N. Departure time: 01:19 11/08/2019. --01:11/08/19 Jennifer Hopson R.N. 4 Clinical Report - Nurses [facility] Emergency Department [address] [place] [address] Phone #: [phone] ari- [phone] 11/07/2019 23:28 [id number] Sex: F : 2000 Age: 19yLocked/Released at 11/08/2019 05:05 by Jennifer Hopson R.N. Name Value Range Interpretation Code Description Data Arianne rce(s) Supporting Document(s) ID Date Data Source [id number] 11/07/2019 11:33:[address] [facility] 1 Clinical Report - Physicians/Mid Levels [facility] Emergency Department [address] [place] [address] Phone #: ext- [phone] 11/07/2019 23:28 Patient: [...] or hematuria. (pt has PCOS, seen at [facility] ER 2 days ago for passing small clot, not ; today, bleeding worse, went through 4 pads w some clots and pelvic pain; her periods are irregular; V x 3 today; was suppose to f/u w PYTHON PROGRAMMER but no appt yet). Similar symptoms previously. Patient has had similar symptoms occasionally. Recent medical care: The patient was seen recently at another facility in the emergency department. ( seen at [facility] 2 days ago for passing blood [...] Medications: 2 Clinical Report - Physicians/Mid Levels [facility] Emergency Department [address] [place] [address] Phone #: ext- [phone] 11/07/2019 23:28 Patient: [...] 36.0) 3 Clinical Report - Physicians/Mid Levels [facility] Emergency Department [address] [place] [address] Phone #: ext- [phone] 11/07/2019 23:28 Patient: [...] Male GFR Interprentation 20-49 yrs >60 mL/min Fkxaym52-61 yrs >56 mL/min Normal 60-69 yrs >49 mL/min Normal 70-79yrs>42 mL/min Normal 80 and above >35 mL/min Normal Female GFRInterpretation 20-39 yrs >60 mL/min Normal 40-49 yrs >58 mL/minNormal 50-59 yrs >51 mL/min Normal 60-69 yrs >45 mL/min Sowhaj61-55 yrs >39 mL/min Normal 80 and above >32 mL/min NormalLipase: (DEBBI: 11/07/2019 23:37) ( MsgRcvd 11/08/2019 00:17) Final results Test Result Flag Units (Reference) 4 Clinical Report - Physicians/Mid Levels [facility] Emergency Department [address] [place] [address] Phone #: ext- [phone] 11/07/2019 23:28 Patient: BERKLEY LOPEZ Sex: F : 2000 Age: 19y LIPASE 30 U/L (13 - 60) Beta-HCG, Qual Serum: (DEBBI: 11/07/2019 23:37) ( MsgRcvd 11/08/2019 00:22) Final results Test Result Flag Units (Reference) HCG SERUM QUAL NEGATIVE (NORMAL: NEGAT HCG SERUM QL REENTER NEGATIVE (NORMAL: NEGAT { KIT LOT # [id number] ){ KIT EXP DATE 12/11/20 ){ PROCEDURAL CONTROL VALID ) Lactic Acid: (DEBBI: 11/07/2019 23:37) ( MsgRcvd 11/08/2019 00:03) Final results Test Result Flag Units (Reference) LACTIC ACID 2.0 MMOL/L (0.2 - 2.2).PROGRESS AND PROCEDURESCourse of Care: 01:09 11/08/19. pt has nml speculum exam, no bleeding whatsoever; workup all in andnml, not ; probable dysmenorrhea; will refer her to [facility]POINT CONSULTANT; d/c instructions given. Patient counseled in person [...] No alcohol. Warnings: Further evaluation is necessary ([facility]AREPOINT CONSULTANT). It is very important to follow up [...] worsens. 5 Clinical Report - Physicians/Mid Levels [facility] Emergency Department [address] [place] [address] Phone #: ext- [phone] 11/07/2019 23:28 Patient: BERKLEY LOPEZ Sex: F [...] tablet. Refills: 2. Substitution permitted. Pharmacy - [facility] #[id number] - [address], [place] [id number]. . Follow-up: Return to the emergency department as needed. Follow up with your healthcare provider in three even if well. Call for an appointment. Reason for referral: evaluation and treatment. Summary of care provided to patient via pap er. Follow up with a railroad mechanic in three days even if well. Call [...] Agrees to plan of care. Follow-up with: [facility], , , [address] [place] [address], [facility] Follow up in three days even if well. Call for an appointment. Reason for referral: evaluation and treatment. Summary of care provided to patient via paper.(Electronically signed by Ronda Garcia M.D. 11/08/2019 01:27) Name Value Range Interpretation Code Description Data Arianne rce(s) Supporting Document(s) ID Date Data Source [id number] 11/08/2019 12:22:[address] [facility] Name Value Range Interpretation Code Description Data Arianne rce(s) Supporting Document(s) HCG SERUM QUAL NEGATIVE NORMAL: NEGATIVE [facility] HCG SERUM QL REENTER NEGATIVE NORMAL: NEGATIVE [facility] { KIT LOT # [id number] ){ KIT EXP DATE 12/11/20 ){ PROCEDURAL CONTROL VALID ) ID Date Data Source [id number] 11/08/2019 12:19:[address] [facility] Name Value Range Interpretation Code Description Data Arianne rce(s) Supporting Document(s) CBC W/AUTOMATED DIFF [facility] COMPLETE BLOOD COUNT Leukocytes [#/volume] in Blood by Automated count 12.9 10^3/uL 4.2 - 11.[address] [facility] Erythrocytes [#/volume] in Blood by Automated count 4.69 10^6/uL 4. 20 - 5.40 [facility] Hemoglobin [Mass/volume] in Blood 13.2 g/dL 12.0 - 16.0 [facility] Hematocrit [Volume Fraction] of Blood by Automated count 39.7 % 3 7.0 - 47.0 [facility] Erythrocyte mean corpuscular volume [Entitic volume] by Auto mated count 84.6 fL 81.0 - 101 [facility] Erythrocyte mean corpuscular hemoglobin [Entitic mass] by Automated count 28.1 pg 27.0 - 34.0 [facility] Erythrocyte mean corpuscular hemoglobin concentration [Mass/volume] by Automated count 33.2 g/dL 31.0 - 36.0 [facility] Erythrocyte distribution width [Ratio] by Automated count 12.9 % 11.5 - 14.5 [facility] Platelets [#/volume] in Blood by Automated count 289 10^3/uL 150 - [address] [facility] Platelet mean volume [Entitic volume] in Blood by Automated count 11.2 fL 7.4 - 10.[address] [facility] Neutrophils/100 leukocytes in Blood by Automated count 53.0 % 37. 0 - 80.0 [facility] Lymphocytes/100 leukocytes in Blood by Manual count 34.8 % 25.0 - 40.0 [facility] Monocytes/100 leukocytes in Blood by Automated count 8.1 % 3.0 - 8.[address] [facility] Eosinophils/100 leukocytes in Blood by Automated count 2.9 % 0.0 - 7.0 [facility] Basophils/100 leukocytes in Blood by Automated count 0.8 % 0.0 - 2.5 [facility] %IG 0.4 % 0.0 - [facility].0 [facility] 0.0 % 0.0 - 0.0 [facility] al Neutrophils [#/volume] in Blood by Automated count 6.85 10^3/uL 2.00 - 6.90 [facility] Lymphocytes [#/volume] in Blood by Automated count 4.49 10^3/uL 0.60 - 3.[address] [facility] Monocytes [#/volume] in Blood by Automated count 1.04 10^3/uL 0.00 - 0.[address] [facility] Eosinophils [#/volume] in Blood by Automated count 0.38 10^3/uL 0.00 - 0.70 [facility] Basophils [#/volume] in Blood by Automated count 0.10 10^3/uL 0.00 - 0.20 [facility] #IG 0.05 10^3/uL 0.00 - 0.10 [facility] H o[facility]ital #NRBC 0.00 10^3/uL 0.00 - 0.00 [facility] MANUAL DIFF SEE BELOW [facility] ital Segmented neutrophils/100 leukocytes in Blood by Manual count 51 % 37 - 80 [facility] %LYMPH 42 % 25 - 40 H [facility] al %MONO 2 % 3 - 8 L [facility] al %EOS 5 % 0 - 7 [facility] al RBC MORPH NOT INDICATED [facility] spital ID Date Data Source [id number] 11/08/2019 12:16:[address] [facility] Name Value Range Interpretation Code Description Data Arianne rce(s) Supporting Document(s) Lipase [Enzymatic activity/volume] in Serum or Plasma 30 U/L 13 - 60 [facility] ID Date Data Source [id number] 11/08/2019 12:16:[address] [facility] Name Value Range Interpretation Code Description Data Arianne rce(s) Supporting Document(s) COMPREHENSIVE METABOLIC PANEL [facility] COMPREHENSIVE METABOLIC PANEL Sodium [Moles/volume] in Serum or Plasma 141 mEq/L 134 - 153 [facility] Potassium [Moles/volume] in Serum or Plasma 4.0 mEq/L 3.6 - 5.0 [facility] Chloride [Moles/volume] in Serum or Plasma 105 mEq/L 98 - 107 [facility] Carbon dioxide, total [Moles/volume] in Serum or Plasma 24 MEQ/L 22 - 30 [facility] Glucose [Mass/volume] in Serum or Plasma 87 MG/DL 65 - 110 [facility] BUN 8 MG/DL 7 - 21 [facility] al Creatinine [Mass/volume] in Serum or Plasma 0.7 MG/DL 0.7 - 1.5 [facility] BUN/CREAT 11 8 - 27 [facility] al Protein [Mass/volume] in Serum or Plasma 6.9 G/DL 6.3 - 8.2 [facility] Albumin [Mass/volume] in Serum or Plasma 4.7 G/DL 3.9 - 5.0 [facility] Globulin [Mass/volume] in Serum by calculation 2.2 GM/DL 2.4 - 3.[address] [facility] A/G RATIO 2.1 0.8 - 2.0 H [facility] al Calcium [Mass/volume] in Serum or Plasma 9.7 MG/DL 8.4 - 10.2 [facility] Bilirubin.total [Mass/volume] in Serum or Plasma <0.7 MG/DL 0.2 - 1.3 [facility] Alkaline phosphatase [Enzymatic activity/volume] in Serum or Plasma 102 U/L 38 - 126 [facility] Aspartate aminotransferase [Enzymatic activity/volume] in Serum or Plasma 19 U/L 5 - 40 [facility] Alanine aminotransferase [Enzymatic activity/volume] in Seru m or Plasma 22 U/L 7 - 56 [facility] Anion gap 3 in Serum or Plasma 12.0 mmol/L 8.0 - 16.0 [facility] AGE 19 yrs [facility] al NON-AA GFR >60 mL/min [facility] ital AFR AMER GFR >60 mL/min [facility] Ho spital Male GFR In terprentation [...] >32 mL/min Normal ID Date Data Source [id number] 11/08/2019 12:03:[address] [facility] Name Value Range Interpretation Code Description Data Arianne rce(s) Supporting Document(s) Lactate [Moles/volume] in Serum or Plasma 2.0 MMOL/L 0.2 - 2.2 [facility] ID Date Data Source [id number] 07/20/2019 06:38:00 PM EDT [facility] [id number], [id number], [id number], [id number],[id number], Name Value Range Interpretation Code Description Data Arianne rce(s) Supporting Document(s) IMMAT. GRAN% 0.0-0.5 Normal (applies to non-numeric res ults) [facility] ID Date Data Source 07/20/2019 06:38:00 PM EDT [facility] [id number], [id number],[id number],271093, B83,[id number],502330, B83,[id number],976552, Name Value Range Interpretation Code Description Data Arianne rce(s) Supporting Document(s) ABSOLUTE IMMATURE GRAN 0.00-0.40 Normal (applies to non-n umeric results) [facility] ID Date Data Source 07/20/2019 06:50:00 PM EDT [facility] [id number], [id number],[id number],696950, B83,[id number],170346, [id number],[id number],708116, Name Value Range Interpretation Code Description Data Arianne rce(s) Supporting Document(s) EGFR - NON- Normal (applies to non-numeric results) [facility] >60 mL/min/1.73 EGFR - Normal (applies to non- numeric results) [facility] >60 mL/min/1.73 Potential Chronic Kidne y Disease: <60ml/min/1.73sq meters Kidney Failure: <15ml/min/1.73sq meters ID Date Data Source 07/20/2019 06:45:00 PM EDT [facility] [id number],[id number], [id number],[id number],577825, B83,[id number],497394, B83,[id number],708123, Name Value Range Interpretation Code Description Data Arianne rce(s) Supporting Document(s) URINE RBC 0-2 Above high normal [facility] URINE WBC 0-2 Abnormal (applies to non-numeric res ults) [facility] BACTERIA FEW Abnormal (applies to non-numeric res ults) [facility] BUDDING YEAST [facility] URINE SQUAMOUS EPI [facility] MUCOUS [facility] Serv[facility] es HYALINE CASTS [facility] CALCIUM OXALATE CRYSTALS PRESENT [facility] ID Date Data Source [id number] 07/20/2019 06:50:00 PM EDT [facility] [id number],[id number], Name Value Range Interpretation Code Description Data Arianne rce(s) Supporting Document(s) LIPASE Normal (applies to non-numeric results) [facility] <300 ID Date Data Source [id number] 07/20/2019 06:50:00 PM EDT [facility] [id number],[id number], Name Value Range Interpretation Code Description Data Arianne rce(s) Supporting Document(s) SODIUM 135-146 Normal (applies to non-numeric resul ts) [facility] POTASSIUM 3.5-5.3 Normal (applies to non-numeric resul ts) [facility] CHLORIDE 98-107 Above high normal [facility] CARBON DIOXIDE 21-32 Below low normal [facility] ANION GAP 5-15 Normal (applies to non-numeric resul ts) [facility] GLUCOSE 65-99 Above high normal [facility] Reference Ranges: Normal Fasting Glucose ........65-99 [...] Range:Females <35Males <50 ID Date Data Source [id number] 07/20/2019 06:38:00 PM EDT [facility] [id number],[id number], Name Value Range Interpretation Code Description Data Arianne rce(s) Supporting Document(s) WBC 4.0-10.5 Above high normal [facility] RBC 4.00-5.20 Above high normal [facility] HEMOGLOBIN 12.2-15.5 Normal (applies to non-numeric resul ts) [facility] HEMATOCRIT 35.0-47.0 Normal (applies to non-numeric resul ts) [facility] MCV 77.0-100.0 Normal (applies to non-numeric resul ts) [facility] MCH 25.0-33.0 Normal (applies to non-numeric resul ts) [facility] MCHC 31.0-36.0 Normal (applies to non-numeric resul ts) [facility] RDW 12.0-17.0 Normal (applies to non-numeric resul ts) [facility] PLATELET COUNT 125-425 Normal (applies to non-numeric r esults) [facility] MPV 8.0-12.0 Normal (applies to non-numeric results) [facility] ABSOLUTE NEUT 1.4-8.4 Normal (applies to non-numeric re sults) [facility] ABSOLUTE LYMPH 1.0-4.0 Normal (applies to non-numeric r esults) [facility] ABSOLUTE MONO 0.0-1.5 Normal (applies to non-numeric re sults) [facility] ABSOLUTE EOS 0.0-0.7 Normal (applies to non-numeric res ults) [facility] ABSOLUTE BASO 0.0-0.1 Normal (applies to non-numeric re sults) [facility] NEUT% 35.0-75.0 Normal (applies to non-numeric resul ts) [facility] LYMPH% 20.0-42.0 Normal (applies to non-numeric resul ts) [facility] MONO% 0.0-15.0 Normal (applies to non-numeric resul ts) [facility] EOS% 0.0-10.0 Normal (applies to non-numeric resul ts) [facility] BASO% 0.0-2.0 Normal (applies to non-numeric resul ts) [facility] ID Date Data Source MA 07/22/2019 07:40:00 AM EDT [facility] Name Value Range Interpretation Code Description Data Arianne rce(s) Supporting Document(s) CLEAN VOIDED URINE CULT [facility] [id number], Name: BERKLEY LOPEZ Citlaly Littlejohn: 2000 Sex: Sierra# Loc Src Site [id number] VSLAB URNC 07/20/19 CLEAN VOIDED URINE CULT FINAL <10,000 CFU/mL NOA SUGGESTIVE OF UROGENITAL SKIN CONTAMINATIONKEY FOR RESULTS: - NEW RESULTATT.PHYS.: DINORAH DOOLEY LOCATION: [facility]--ADM.DATE: 07/20/19 PATIENT : BERKLEY LOPEZ MICROBIOLOGYPRINTED: 07/22/19 07:40 REGULAR 2 PAGE: 2 of 1 1 ID Date Data Source [id number] 07/20/2019 06:41:00 PM EDT [facility] [id number],[id number], Name Value Range Interpretation Code Description Data [...] [facility] REQUEST see below [facility] SPECIMEN SENT TO MICROBIOLOGY ID Date Data Source [id number] 06/29/2019 02:10:35 PM EDT [place] flore[facility] - [facility], [facility] EXAM:XR KNEE 3 [...] Thank you for referring your patient to [facility]. Name Value Range Interpretation Code Description Data Arianne rce(s) Supporting Document(s) ID Date Data Source [id number] 06/18/2019 08:11:00 PM EDT [facility] PROCEDURE: ABDOMEN, 2 VIEW X-RAY ORD#:[id number] DATE: 06/18/2019 19:02 ACC#: [id number]:PROCEDURE: ABDOMEN, 2 VIEW X-RAYDATE AND TIME: 06/18/2019 7:02 PM EDTHISTORY: *Pain. Constipation. Abdominal pain.COMPARISON: NoneTECHNIQUE: 3 frontal views of the abdomen.-IMPRESSION: Nonspecific, nonobstructive bowel gas pattern. No gross free air. Large amount of stool scattered within the colon and likely the rectum. Scattered air within the colon.Lung bases are clear. No abnormal calcifications. No acute osseous abnormality is identified.DWS: [id number] CUMULATIVE [facility] RADIOLOGY FLUOROSCOPY TIME SINCE 07/30/2009: 0 sec (=0.00 min)EXAM DATE: 06/18/2019 19:02 ORDERED BY:JOSE CHERRYPWINICOLASA PACS IMAGES READ BY: KAYLA SCOTTIGNED 06/18/2019 20:09 BY KAYLA GODINEZ MD [facility] ACC#: [id number] Name Value Range Interpretation Code Description Data Arianne rce(s) Supporting Document(s) ID Date Data Source [id number] 05/26/2019 02:33:53 PM EDT [place] flore[place] - [facility], [facility] BERKLEY LOPEZ LPATIENT IDENTIFICATION :Practice Site: [facility] Name: BERKLEY LOPEZ LMedical Record Number: [id number] Of : 2000CHIEF COMPLAINT:patient here for c/o [...] strained her back. She has been lifting [id number] whois about 15 pounds. She has been [...] 4 mg = 1 tab(s), PRN, SubLINGUAL, [id number] EXAM:VITALS:T: 37 C (Tympanic) T: 98.6 F [...] (04/27/19)COAGULATIOND-Dimer: 450 ng/mL FEU (04/27/19)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 Spec Type: SCRAP CRUSHER Swab (05/12/19)Influenza A: Negative (05/12/19)Influenza B: Negative [...] severe pain or any other severe/emergentsymptoms-go to ER/[id number].Ordered:naproxen, 500 mg = 1 tab(s), PO (oral), bid, PRN Pain, # 30 tab(s),Maintenance, Pharmacy: [facility]/pharmacy #[id number], 1 tab(s) PO (oral) bid,PRN:PainPOC Urine [...] EmergencyRoom or call 911.Thank you for choosing [facility]. We hope you [...] othersevere/emergent symptoms-go toER/call 911. With: DINORAH DOOLEYAddress: [facility] [address] [place] [address] , [place], [place],[address]; This document was authenticated by Desiree Christina FNP FNP on 05/26/201902:33 PM Name Value Range Interpretation Code Description Data Arianne rce(s) Supporting Document(s) ID Date Data Source [id number] 05/16/2019 07:37:05 PM EDT [place] flore[place] - [facility], [facility] BERKLEY LOPEZ LPATIENT IDENTIFICATION :Practice Site: [facility] Name: BERKLEY LOPEZ LMedical Record Number: [id number] Of : 2000CHIEF COMPLAINT:rm 1 c/o pain [...] 4 mg = 1 tab(s), PRN, SubLINGUAL, [id number] EXAM:VITALS:T: 36.9 C (Tympanic) T: 98.4 F [...] (04/27/19)COAGULATIOND-Dimer: 450 ng/mL FEU (04/27/19)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 Spec Type: SCRAP CRUSHER Swab (05/12/19)Influenza A: Negative (05/12/19)Influenza B: Negative [...] surgery / s/p fall over a vacuum diamond cleaner cord todayxray; no acute findingsrestice 15 [...] rce(s) Supporting Document(s) ID Date Data Source [id number] 05/16/2019 06:29:06 PM EDT [place] flore[place] - [facility], [facility] EXAM:XR KNEE 3 [...] Thank you for referring your patient to [facility]. Name Value Range Interpretation Code Description Data Arianne rce(s) Supporting Document(s) ID Date Data Source [id number] 05/13/2019 05:32:45 PM EDT [place] flore[place] - [facility], [facility] BERKLEY LOPEZ LHISTORY SOURCE:Patient , mother, [...] shortness of breath. [facility] [...] 4 mg = 1 tab(s), PRN, SubLINGUAL, [id number] ODT 4 mg oral tablet, disintegrating 4 [...] Virology LATEST RESULTS HISTORICALRESULTSInflu Spec Type 05/12/19 SCRAP CRUSHER Swab 04/20/18NP Swab 14:17 Influenza A 05/12/19 [...] of each breast. OVERALL FINAL ASSESSMENTAssessment ACR [id number] 2: Benign Findings. RECOMMENDATIONNormal screening recommended according to [place] [employer] guidelines. This document has been authenticated by Harrison Molina MD on 05/01/2019 9:10AM.Thank you for referring your patient to [facility]. Signed By: Jesse LINARES, Harrison [...] PM.Thank you for referring your patient to [facility]. Signed By: José Ma XR [...] PM.Thank you for referring your patient to [facility]. Signed By: Kit Lerma MD [...] to [facility]. Signed By: WILFREDO ALBRIGHTCARDIOLOGY RESULTS:No [...] rce(s) Supporting Document(s) ID Date Data Source [id number] 05/12/2019 02:39:15 PM EDT [place] - [facility] Name Value Range Interpretation Code Description Data Arianne rce(s) Supporting Document(s) RSV Screen Negative [place]na [facility]raine [facility] Respiratory Syncytial Virus Screening is performed by Nucleic Acid Amplification Testing (NAAT). ID Date Data Source [id number] 05/12/2019 02:39:04 PM EDT [place] flore[place] - [facility] Name Value Range Interpretation Code Description Data Arianne rce(s) Supporting Document(s) Influenza A Negative [place]ja rddallin - [facility] Rapid Influenza testing performed by Nuc leic Acid Amplification Testing (NAAT) Influenza B Negative [place] rddallin - [facility] Influ Spec Type [place] - [facility] ID Date Data Source [id number] 05/12/2019 02:27:25 PM EDT [place] rddall[place] - [facility] Name Value Range Interpretation Code Description Data Arianne rce(s) Supporting Document(s) Rapid Grp A Neg [place] - [facility] Added on by Discern Audit Strep A Neg cmt [place] - [facility] ID Date Data Source [id number] 05/12/2019 02:27:25 PM EDT [place] flore[place] - [facility] Name Value Range Interpretation Code Description Data Arianne rce(s) Supporting Document(s) Rapid Grp A Strep, Throat Negative [place] - [facility] Rapid Group A Streptococcus Screen is pe rformed by Enzyme Immunoassay. ID Date Data Source [id number] 05/12/2019 01:42:04 PM EDT [place] flore[place] - [facility] EXAM:US EXTREMITY VENOUS LOWER LEFTORDER [...] Thank you for referring your patient to [facility]. Name Value Range Interpretation Code Description Data Arianne rce(s) Supporting Document(s) ID Date Data Source [id number] 05/01/2019 09:12:48 AM EST [place] flore[place] - [facility] EXAM: US BREAST BILATORDERING PROVIDER:Madhavi [...] appearance of each breast.OVERALL FINAL ASSESSMENTAssessment ACR [id number] 2: Benign Findings.RECOMMENDATIONNormal screening recommended according to [place] [employer] guidelines.This document has been authenticated by Harrison Molina MD on 05/01/2019 9:10AM. Thank you for referring your patient to [facility]. Name Value Range Interpretation Code Description Data Arianne rce(s) Supporting Document(s) ID Date Data Source [id number] 04/27/2019 05:09:56 PM EST [place] - [facility] SOURCE:Patient , previous charts reviewed, [...] 04/27/19 33.6 04/03/2032.1 14:03 MPV 04/27/19 8.9 209.2 14:03 RDW 04/27/19 13.8 04/03/2013.1 14:03 Platelet 04/27/19 314 14:03 DIFFERENTIAL LATEST RESULTS HISTORICALRESULTSNeutrophils, absolute 04/27/19 4.5 .7 14:03 Lymphocytes, absolute 04/27/19 3.0 .8 14:03 Monocytes, absolute 04/27/19 0.6 .4 14:03 Eosinophils, absolute 04/27/19 0.2 .1 14:03 Basophils, absolute 04/27/19 0.1 200.1 14:03 Neutrophils, auto 04/27/19 54.2 04/03/2057.3 14:03 [...] PM.Thank you for referring your patient to [facility]. Signed By: José [...] rce(s) Supporting Document(s) ID Date Data Source [id number] 04/27/2019 02:53:12 PM EST [place] - [facility] EXAM:XR CHEST 2 VIEWSORDERING PROVIDER:Kathy MckennaCLINICAL HISTORY:Chest pain.COMPARISON STUDY:12/02/2018.TECHNIQUE:2 views.FINDINGS:The heart is normal in size. No focal pulmonary abnormality is identified.The bones and soft tissues are unremarkable.IMPRESSION: No evidence of acute pulmonary disease.This document has been authenticated by José Ma MD on 04/27/2019 2:51PM. Thank you for referring your patient to [facility]. Name Value Range Interpretation Code Description Data Arianne rce(s) Supporting Document(s) ID Date Data Source [id number] 04/27/2019 04:17:48 PM EST [place] r[place] - [facility] Name Value Range Interpretation Code Description Data Arianne rce(s) Supporting Document(s) D-Dimer 450 ng/mL FEU <=499 [place] L ourlorraine - [facility] * Diagnosis should not be based solely o n the results of this test.Results should be interpreted in conjunction with clinical findings.Negative Predictive Value for thromboembolism for D-Dimer test results below the cut off of 500 ng/ml FEU is 98%. ID Date Data Source [id number] 04/27/2019 02:39:21 PM EST [place] - [facility] Name Value Range Interpretation Code Description Data Arianne rce(s) Supporting Document(s) Serum Qualitative Negative [place] - [facility] ID Date Data Source [id number] 04/27/2019 02:26:23 PM EST [place] - [facility] Name Value Range Interpretation Code Description Data Arianne rce(s) Supporting Document(s) GFR-KIEL >60 mL/min/1.73m2 >=60 [facility] eGFR added on by Discern [...] [facility] ID Date Data Source [id number] 04/27/2019 02:26:22 PM EST [place] rdes - [facility] Name Value Range Interpretation Code Description Data Arianne rce(s) Supporting Document(s) Troponin-I <0.02 ng/mL <=0.04 [place] rdes - [facility] Normal: <0.04 ng/mLIschemic disease: 0.04-0.10 ng/mLConsistent with AMI: > 0.10 ng/mLPatients taking Biotin supplements in excess of the daily recommended allowance, may have falsely elevated results due to interference of Biotin in the assay measurement. ID Date Data Source [id number] 04/27/2019 02:26:21 PM EST [place] - [facility] Name Value Range Interpretation Code Description Data Arianne rce(s) Supporting Document(s) Sodium Level 140 mmol/L 136-144 [place] Lo urlorraine - [facility] Potassium Level 3.9 mmol/L 3.6-5.1 [place] - [facility] Chloride 111 mmol/L 98-110 Above high normal [facility] CO2 20 mmol/L 22-32 Below low normal [facility] AGAP 9 mEq/L 4-14 [place] Lour lorraine - [facility], [facility] Glucose Level. 114 mg/dL 65-100 Above high normal [facility] - [facility], [facility] If patient is taking either of these dominguez gs, there has been a bias identified:Sulfasalazine may cause falsely decreased resultsSulfaspyridine may cause falsely increased results BUN 11 mg/dL 8-23 [place] Lour lorraine - [facility], [facility] Creatinine 0.67 mg/dL 0.40-1.10 [place] Lour lorraine - [facility] Calcium 9.2 mg/dL 8.5-10.5 [place] Lour lorraine - [facility] Total Protein 7.6 gm/dL 6.4-8.2 [place] ourlorraine - [facility], [facility] Globulin 3.6 gm/dL 1.5-3.8 [place] Lour lorraine - [facility] Albumin Level 4.0 gm/dL 3.3-4.8 [place] L zee - [facility] Bilirubin Total. 0.1 mg/dL 0.2-1.0 Below low normal [facility] - [facility] AST 12 unit/L 15-41 Below low normal [facility] - [facility], [facility] If patient is taking either of these dominguez gs, there has been a bias identified:Sulfasalazine may cause falsely decreased resultsSulfaspyridine may cause falsely decreased results Alk Phos 88 unit/L 45-117 [place] L[place] lorraine - [facility] ALT 28 unit/L 14-54 [place] Lour lorraine - [facility], [facility] If patient is taking either of these dominguez gs, there has been a bias identified:Sulfasalazine may cause falsely decreased resultsSulfaspyridine may cause falsely decreased results ID Date Data Source [id number] 04/27/2019 02:07:48 PM EST [place] - [facility] Name Value Range Interpretation Code Description Data Arainne rce(s) Supporting Document(s) WBC 8.3 K/uL 4.0-10.0 [place] Lour lorraine - [facility] RBC 4.80 Million/mcL 4.20-5.40 [facility] Hgb 13.3 gm/dL 12.0-16.0 [place] Lour lor[place] - [facility] Hct 39.7 % 36.0-47.0 [place] Lour lor[place] - [facility] MCV 82.7 fL 82.0-98.0 [place] Lour lor[place] - [facility] MCH 27.8 pg 26.0-33.0 [place] Lour lor[place] - [facility] MCHC 33.6 gm/dL 32.0-36.0 [place] L[place] lor[place] - [facility] RDW 13.8 % 11.4-14.4 [place] l[place] - [facility] Platelet 314 K/mcL 150-400 [place] Lour lor[place] - [facility] MPV 8.9 fL 7.4-10.4 [place] l[place] - [facility] ID Date Data Source [id number] 04/27/2019 02:07:48 PM EST [place] - [facility] Name Value Range Interpretation Code Description Data Arianne rce(s) Supporting Document(s) Neutrophils, auto 54.2 % 40.0-80.0 [facility] Neutrophils, absolute 4.5 K/mcL 1.5-7.7 [facility] - [facility] Lymphocytes, auto 35.8 % 15.0-40.0 [facility] Lymphocytes, absolute 3.0 K/mcL 1.5-4.0 [facility] - [facility] Monocytes, auto 7.1 % 0.0-12.0 [place] - [facility] Monocytes, absolute 0.6 K/mcL 0.2-1.0 [facility] - [facility] Eosinophils, auto 1.9 % 0.0-5.0 [facility] Eosinophils, absolute 0.2 K/mcL 0.0-0.3 [facility] - [facility] Basophils, auto 1.0 % 0.0-2.0 [place] - [facility] Basophils, absolute 0.1 K/mcL 0.0-0.1 [facility] - [facility] ID Date Data Source [id number] 04/24/2019 10:34:40 AM EST [place] - [facility] EXAM:XR KNEE 1 OR 2 [...] Thank you for referring your patient to [facility]. Name Value Range Interpretation Code Description Data Arianne rce(s) Supporting Document(s) ID Date Data Source [id number] 04/10/2019 03:08:28 PM EST [place] - [facility] BERKLEY LOPEZ [facility] is a pleasant pat ient of [...] prepped with chlorhexidine 1%. Using ultrasound assistance, [id number] Tuohy epiduralneedle was inserted towards the adductor [...] rce(s) Supporting Document(s) ID Date Data Source [id number] 04/10/2019 03:02:28 PM EST [place] flore[place] - [facility], [facility] LOPEZ BERKLEY LREPORT OF OPERATION DA TE OF PROCEDURE: [...] DRAINS/PACKS:none This operative report was dictated using [employer] software. Every attempt tocorrect verbalinaccuracies have been made.This document was authenticated by Salma Alvarado MD MD on04/10/2019 03:02 PM Name Value Range Interpretation Code Description Data Arianne rce(s) Supporting Document(s) ID Date Data Source [id number] 04/10/2019 02:41:43 PM EST [place] - [facility] EXAM:XR KNEE 1 OR 2 VIEWS LEFTORDERING P ROVIDER:MD Salma Alvarado MDCLINICAL HISTORY:Intraoperative fluoroscopy.COMPARISON STUDY:None.TECHNIQUE:4 images. 58 seconds of fluoroscopy.FINDINGS: Fluoroscopic documentation of procedure without radiologist present. Pleasesee the operative report.IMPRESSION: Intraoperative fluoroscopy This document has been authenticated by José Ma MD on 04/10/2019 2:39PM. Thank you for referring your patient to [facility]. Name Value Range Interpretation Code Description Data Arianne rce(s) Supporting Document(s) ID Date Data Source [id number] 04/10/2019 08:12:36 PM EST [place] - [facility] Name Value Range Interpretation Code Description Data Arianne rce(s) Supporting Document(s) Finger Stick Blood Sugar 95 mg/dL 65-100 [place] - [facility] The POC Glucose meter technical range is 30 - 550 mg/dLA glucose less than 30 mg/dLwill chart as CORBY glucose greater than 550 mg/dL will display as HI ID Date Data Source [id number] 04/03/2019 04:39:33 PM EST [place] - [facility] BERKLEY LOPEZ ISTORY SOURCE:Patient and nurse's notes reviewedCHIEF COMPLAINT:Pt reports left lower abdominal pain, vomiting blood tinged fluids, and unableto urinate [id number] last night. Pt reports hx of urinary [...] 04/03/19 Clear 11/28/18Cloudy Abnormal 14:01 UA Specific [place] 04/03/19 1.027 High .029 High 14:01 UA [...] <2 14:01 UA WBC w/UC 04/03/19 2 11/28/1914-20 14:01 UA Squamous Epithelial 04/03/19 <2 11/28/18>50Cells 14:01 UA Mucous 04/03/19 Trace 04/19/18Trace 14:01 ROUTINE CHEMISTRY LATEST RESULTS HISTORICALRESULTSSodium Level 04/03/19 140 12:55 Potassium Level 04/03/19 3.7 .6 12:55 Chloride 02/0 05/18 112 High High 12:55 CO2 04/03/19 21 Low 02/19/1924 12:55 AGAP 04/03/19 7 12:55 Glucose Level. 04/03/19 148 High 02/18/1991 12:55 BUN 04/03/19 13 02/18/1915 12:55 Creatinine 04/03/19 0.67 .80 12:55 GFR-AA 04/03/19 >60 02/18/19>60 12:55 GFR-KIEL 04/03/19 >60 02/18/19>60 12:55 Calcium 04/03/19 9.4 .9 12:55 Albumin Level 04/03/19 4.0 .6 12:55 [...] PM.Thank you for referring your patient to [facility]. Signed By: Abdi [...] rce(s) Supporting Document(s) ID Date Data Source [id number] 04/03/2019 02:24:26 PM EST [place] flore[place] - [facility] EXAM:Noncontrast CT of [...] Thank you for referring your patient to [facility]. Name Value Range Interpretation Code Description Data Arianne rce(s) Supporting Document(s) ID Date Data Source [id number] 04/05/2019 09:25:49 AM EST [place] - [facility] Name BERKLEY LOPEZ hdate 2000Sex FEMALE Age 18 yearsPatient Acct. No. [id number] ER OLLAttending ER Physician Fabrice LINARES, [facility] Phys[facility] DINORAH DOOLEYMicrobiologyS = Susceptible [...] Predominating PathogenPerforming Locationsf1: This test was performed at:[facility], [address] [place] [address], [facility]- Name Value Range Interpretation Code Description Data Arianne rce(s) Supporting Document(s) ID Date Data Source [id number] 04/03/2019 02:14:00 PM EST [place] - [facility] Name Value Range Interpretation Code Description Data Arianne rce(s) Supporting Document(s) UA Squamous Epithelial Cells <2 /HPF 0-5 [place] - [facility] Added as per Lab reflex policy GL_UA_MIC RO_AV_R_UC UA WBC w/UC 2 /HPF 0-5 [place] rdes - [facility] UA RBC <2 /HPF 0-2 [place] Lour lorraine - [facility] UA Mucous Absent [place] Lour l[place]raine - [facility] ID Date Data Source [id number] 04/03/2019 02:07:51 PM EST [place] - [facility] Name Value Range Interpretation Code Description Data Arianne rce(s) Supporting Document(s) UA Color Yellow [place] Lour lorraine - [facility] UA Clarity Clear [place] Lour l[place]raine - [facility] UA pH 5.0 5.0-8.0 [place] L[place] - [facility] UA Specific [place] 1.027 1.005-1.025 Above high normal [place] - [facility] UA Leuk w/uc Negative AB [place] urdes - [facility] UA Nitrite w/UC Negative [place] - [facility] UA Blood w/UC Negative [place] L ourdes - [facility] UA Bilirubin Negative [place]des - [facility] If the dipstick bilirubin results are 'P resumptive Positive' the result will be confirmed with an Ictotest due to possible interference. UA Urobilinogen Normal [place] - [facility] UA Glucose Normal [place] Lour lorraine - [facility] UA Ketones Negative [place] Lour lorraine - [facility] UA Protein w/UC Negative [place] - [facility] UA Ascorbic Acid Negative [facility] - [facility] The presence of ascorbic acid may interf ere with the detection of blood, glucose, nitrite and bilirubin on the biochemical strip. Detectable limits of >20mg/dL will reflex a microscopic exam. ID Date Data Source [id number] 04/03/2019 01:48:27 PM EST [place] - [facility], [facility] BERKLEY LOPEZ LChief Complaint: Patianncy nt states that for the past 24 [...] document was authenticated by Jennifer Dukes FNP EDUCATIONAL ASSISTANT TEACHER on 04/03/201912:29 PMSent for Co-authentication by Nilton Willson DO DO Co-authenticatedon 04/03/2019 01:48 PM Name Value Range Interpretation Code Description Data Arianne rce(s) Supporting Document(s) ID Date Data Source [id number] 04/03/2019 03:16:39 PM EST [place] - [facility] Name Value Range Interpretation Code Description Data Arianne rce(s) Supporting Document(s) Lipase Level 103 unit/L 73-393 [place] - [facility] ID Date Data Source [id number] 04/03/2019 03:16:41 PM EST [place] - [facility] Name Value Range Interpretation Code Description Data Arianne rce(s) Supporting Document(s) GFR-KIEL >60 mL/min/1.73m2 >=60 [facility] eGFR added on by Discern [...] [place] - [facility] ID Date Data Source [id number] 04/03/2019 03:16:39 PM EST [place] - [facility] Name Value Range Interpretation Code Description Data Arianne rce(s) Supporting Document(s) C-Reactive Protein. 1.0 mg/dL <=1.0 [facility] - [facility] ID Date Data Source [id number] 04/03/2019 03:16:39 PM EST [place] - [facility], [facility] Name Value Range Interpretation Code Description Data Arianne rce(s) Supporting Document(s) Sodium Level 140 mmol/L 136-144 [place] - [facility], [facility] Potassium Level 3.7 mmol/L 3.6-5.1 [place] - [facility], [facility] Chloride 112 mmol/L 98-110 Above high normal [facility] - [facility], [facility] CO2 21 mmol/L 22-32 Below low normal [facility] - [facility], [facility] AGAP 7 mEq/L 4-14 [place] Lour lorraine - [facility], [facility] Glucose Level. 148 mg/dL 65-100 Above high normal [facility] If patient is taking either of these dominguez gs, there has been a bias identified:Sulfasalazine may cause falsely decreased resultsSulfaspyridine may cause falsely increased results BUN 13 mg/dL 8-23 [place] Lour lorraine - [facility], [facility] Creatinine 0.67 mg/dL 0.40-1.10 [place] Lour lor[place] - [facility] Calcium 9.4 mg/dL 8.5-10.5 [place] Lour [place] - [facility] Total Protein 7.6 gm/dL 6.4-8.2 [place] - [facility] Globulin 3.6 gm/dL 1.5-3.8 [place] Lozenon peters - [facility] Albumin Level 4.0 gm/dL 3.3-4.8 [place] L zee - [facility] Bilirubin Total. 0.3 mg/dL 0.2-1.0 [facility] - [facility] AST 13 unit/L 15-41 Below low normal [facility] - [facility] If patient is taking either of these dominguez gs, there has been a bias identified:Sulfasalazine may cause falsely decreased resultsSulfaspyridine may cause falsely decreased results Alk Phos 89 unit/L 45-117 [place] Krishna lorraine - [facility], [facility] ALT 32 unit/L 14-54 [place] Krishna lorraine - [facility] If patient is taking either of these dominguez gs, there has been a bias identified:Sulfasalazine may cause falsely decreased resultsSulfaspyridine may cause falsely decreased results ID Date Data Source [id number] 04/03/2019 01:23:25 PM EST [place] - [facility] Name Value Range Interpretation Code Description Data Arianne rce(s) Supporting Document(s) Serum Qualitative Negative [place] [facility] - [facility] ID Date Data Source [id number] 04/03/2019 01:03:11 PM EST [place] - [facility], [facility] Name Value Range Interpretation Code Description Data Arianne rce(s) Supporting Document(s) WBC 8.1 K/uL 4.0-10.0 [place] - [facility] RBC 4.84 Million/mcL 4.20-5.40 [facility] - [facility] Hgb 13.3 gm/dL 12.0-16.0 [place] - [facility] Hct 40.0 % 36.0-47.0 [place] L[place] - [facility] MCV 82.7 fL 82.0-98.0 [place] - [facility] MCH 27.4 pg 26.0-33.0 [place] - [facility] MCHC 33.1 gm/dL 32.0-36.0 [place] Lour l[place] - [facility] RDW 14.1 % 11.4-14.4 [place] - [facility] Platelet 302 K/mcL 150-400 [place] Lour [place] - [facility] MPV 9.2 fL 7.4-10.4 [place] - [facility] ID Date Data Source [id number] 04/03/2019 01:03:11 PM EST [place] - [facility] Name Value Range Interpretation Code Description Data Arianne rce(s) Supporting Document(s) Neutrophils, auto 58.3 % 40.0-80.0 [facility] Neutrophils, absolute 4.7 K/mcL 1.5-7.7 [facility] - [facility] Lymphocytes, auto 34.4 % 15.0-40.0 [facility] - [facility] Lymphocytes, absolute 2.8 K/mcL 1.5-4.0 [facility] - [facility] Monocytes, auto 5.3 % 0.0-12.0 [place] - [facility] Monocytes, absolute 0.4 K/mcL 0.2-1.0 [facility] - [facility] Eosinophils, auto 1.3 % 0.0-5.0 [facility] - [facility] Eosinophils, absolute 0.1 K/mcL 0.0-0.3 [facility] - [facility] Basophils, auto 0.7 % 0.0-2.0 [place] - [facility] Basophils, absolute 0.1 K/mcL 0.0-0.1 [facility] - [facility] ID Date Data Source [id number] 03/30/2019 04:42:08 PM EST [place] - [facility] BERKLEY LOPEZ LPATIENT IDENTIFICATION :[facility] LMedical Record Number: [id number] Of : 2000CHIEF COMPLAINT:rm 6 has been [...] (03/26/19)Protein Urine Dipstick POC Clinic: Negative (03/26/19)Specific [place] Dipstick POC Clinic: 1.030 (03/26/19)Urobilinogen Urine Dipstick [...] good understanding. *This note was completed using [employer] Dictation System. Reasonable attemptshave been made tocorrect errors. Please excuse any typographical errors. For clarifications,please contact ouroffice. Ordered:nitrofurantoin, 100 mg = 1 cap(s), PO (oral), bid, # 10 cap(s), Maintenance,Pharmacy: [facility]/pharmacy #[id number], 1 cap(s) PO (oral) [...] rce(s) Supporting Document(s) ID Date Data Source [id number] 03/28/2019 07:35:16 AM EST [place] Ton[place] flore[place] - [facility] Name BERKLEY LOPEZ Evert hdate 2000Sex FEMALE Age 18 yearsPatient Acct. No. [id number] LCB OLLAttending ER Physician Zee Gonzalez [facility] Physician DINORAH DOOLEYMicrobiologyS = Susceptible [...] Predominating PathogenPerforming Locationsf1: This test was performed at:[facility], [address] [place] [address], [facility]- Name Value Range Interpretation Code Description Data Arianne rce(s) Supporting Document(s) ID Date Data Source [id number] 02/18/2019 05:02:53 PM EST [place] - [facility] [place]History is from patient I reviewed the [...] well-nourished woman who appears her stated age. Oasezd-lq-deuicbzvzbbmjtsv.HEAD: Normocephalic/atraumatic.EYES: Pupils equal round reactive to light [...] 23.6 [birth year]/1932.7 10:13 Monocytes, auto 02/18/19 10.9 198.1 10:13 Eosinophils, auto 02/18/19 0.9 191.3 10:13 Basophils, auto 02/18/19 0.8 .2 10:13 [...] LATEST RESULTS HISTORICALRESULTSC-Reactive Protein. 02/18/19 3.3 High 12/02/191.0 10:13 DIAGNOSTIC RESULTS:CT Abd/Pelvis w/IV Only Contrast:CT [...] Thank you for referring your patient to [facility]. Signature Line Final Dictated: 02/18/2019 [...] rce(s) Supporting Document(s) ID Date Data Source [id number] 02/18/2019 12:31:16 PM EST [place] flore[place] - [facility], [facility] EXAM:CT ABD/PELVIS W/IV [...] Thank you for referring your patient to [facility]. Name Value Range Interpretation Code Description Data Arianne rce(s) Supporting Document(s) ID Date Data Source [id number] 02/18/2019 11:09:02 AM EST [place] flore[place] - [facility] EXAM: US PELVIS [...] you for referring your patient to [facility]. Name Value Range Interpretation Code Description Data Arianne rce(s) Supporting Document(s) ID Date Data Source [id number] 02/18/2019 10:47:32 AM EST [place] - [facility] Name Value Range Interpretation Code Description Data Arianne rce(s) Supporting Document(s) APTT 27 second(s) 24-33 [place] urdes - [facility] Suggested therapeutic range for unfracti onated Heparin is 2 to 2.5 times the mean normal value. Levels below 60 seconds may indicate insufficient anticoagulant.For therapeutic monitoring of various direct thrombin inhibitors, please refer to Micromedex or LexiComp on the [facility] Intranet. ID Date Data Source [id number] 02/18/2019 11:07:49 AM EST [place] - [facility] Name Value Range Interpretation Code Description Data Arianne rce(s) Supporting Document(s) Serum Qualitative Negative [place] - [facility] ID Date Data Source [id number] 02/18/2019 10:46:47 AM EST [place] - [facility] Name Value Range Interpretation Code Description Data Arianne rce(s) Supporting Document(s) Lipase Level 96 unit/L 73-393 [place] Christen holliday - [facility] ID Date Data Source [id number] 02/18/2019 10:46:47 AM EST [place] - [facility] Name Value Range Interpretation Code Description Data Arianne rce(s) Supporting Document(s) C-Reactive Protein. 3.3 mg/dL <=1.0 Above high normal [place] - [facility] ID Date Data Source [id number] 02/18/2019 10:46:48 AM EST [place] - [facility] Name Value Range Interpretation Code Description Data Arianne rce(s) Supporting Document(s) GFR-KIEL >60 mL/min/1.73m2 >=60 [facility] - [facility] eGFR added on by Discern [...] Sarah - [facility], [facility] ID Date Data Source [id number] 02/18/2019 10:46:46 AM EST [place] - [facility] Name Value Range Interpretation Code Description Data Arianne rce(s) Supporting Document(s) Sodium Level 140 mmol/L 136-144 [place] - [facility] Potassium Level 3.6 mmol/L 3.6-5.1 [place] - [facility] Chloride 112 mmol/L 98-110 Above high normal [facility] - [facility] CO2 24 mmol/L 22-32 [place] L[place] lorraine - [facility], [facility] AGAP 4 mEq/L 4-14 [place] L[place] l[place] - [facility] Glucose Level. 91 mg/dL 65-100 [place] - [facility] If patient is taking either of these dominguez gs, there has been a bias identified:Sulfasalazine may cause falsely decreased resultsSulfaspyridine may cause falsely increased results BUN 15 mg/dL 8-23 [place] Lour lorraine - [facility], [facility] Creatinine 0.80 mg/dL 0.40-1.10 [place] Lour lor[place] - [facility], [facility] Calcium 8.9 mg/dL 8.5-10.5 [place] Lour lorraine - [facility], [facility] Total Protein 7.1 gm/dL 6.4-8.2 [place] - [facility], [facility] Globulin 3.5 gm/dL 1.5-3.8 [place] Lour lorraine - [facility] Albumin Level 3.6 gm/dL 3.3-4.8 [place] zee - [facility] Bilirubin Total. 0.4 mg/dL 0.2-1.0 [facility] - [facility] AST 11 unit/L 15-41 Below low normal [facility] - [facility] If patient is taking either of these dominguez gs, there has been a bias identified:Sulfasalazine may cause falsely decreased resultsSulfaspyridine may cause falsely decreased results Alk Phos 93 unit/L 45-117 [place] Krishna peters - [facility], [facility] ALT 47 unit/L 14-54 [place] Krishna peters - [facility] If patient is taking either of these dominguez gs, there has been a bias identified:Sulfasalazine may cause falsely decreased resultsSulfaspyridine may cause falsely decreased results ID Date Data Source [id number] 02/18/2019 10:46:46 AM EST [place] - [facility] Name Value Range Interpretation Code Description Data Arianne rce(s) Supporting Document(s) Amylase Level 28 unit/L 28-100 [place] L zee - [facility] ID Date Data Source [id number] 02/18/2019 10:17:55 AM EST [place] - [facility] Name Value Range Interpretation Code Description Data Arianne rce(s) Supporting Document(s) WBC 6.6 K/uL 4.0-10.0 [place] Krishna lorraine - [facility], [facility] RBC 4.50 Million/mcL 4.20-5.40 [facility] - [facility] Hgb 12.4 gm/dL 12.0-16.0 [place] Lour lorraine - [facility], [facility] Hct 37.2 % 36.0-47.0 [place] Lour lor[place] - [facility], [facility] MCV 82.6 fL 82.0-98.0 [place] Lour lorraine - [facility], [facility] MCH 27.5 pg 26.0-33.0 [place] Lour lorraine - [facility], [facility] MCHC 33.3 gm/dL 32.0-36.0 [place] Lour lorraine - [facility], [facility] RDW 13.7 % 11.4-14.4 [place] Lour lorraine - [facility], [facility] Platelet 272 K/mcL 150-400 [place] Lour lorraine - [facility], [facility] MPV 8.3 fL 7.4-10.4 [place] Lour lor[place] - [facility], [facility] ID Date Data Source [id number] 02/18/2019 10:17:54 AM EST [place] - [facility] Name Value Range Interpretation Code Description Data Arianne rce(s) Supporting Document(s) Neutrophils, auto 63.8 % 40.0-80.0 [facility] - [facility] Neutrophils, absolute 4.2 K/mcL 1.5-7.7 [facility] - [facility], [facility] Lymphocytes, auto 23.6 % 15.0-40.0 [facility] - [facility], [facility] Lymphocytes, absolute 1.6 K/mcL 1.5-4.0 [facility] - [facility], [facility] Monocytes, auto 10.9 % 0.0-12.0 [place] - [facility], [facility] Monocytes, absolute 0.7 K/mcL 0.2-1.0 [facility] - [facility] Eosinophils, auto 0.9 % 0.0-5.0 [facility] - [facility] Eosinophils, absolute 0.1 K/mcL 0.0-0.3 [facility] - [facility] Basophils, auto 0.8 % 0.0-2.0 [place] - [facility] Basophils, absolute 0.1 K/mcL 0.0-0.1 [facility] - [facility] Procedure Social History Code Duration Value Status Description Data Source(s ) Alcohol intake 12/20/2019 12:00:00 AM EDT Current non-d chana of alcohol (finding) completed Current non-drinker of alcohol (finding) [facility] Tobacco use and exposure 12/20/2019 12:00:00 AM EDT Never used co mpleted Never used [facility] Smoking 12/20/2019 12:00:00 AM EDT Never smoker completed Never s [facility] 06/29/2019 12:00:00 AM EDT Patient is a current smoker, smokes every day completed Patient is a current smoker, smokes every day [facility] ( [facility]) ASSERTION 05/08/2019 12:00:00 AM EDT soda and coffee completed soda and coffee [facility] Vital Signs ID Date Data Source UNK Name Value Range Interpretation Code Description Data Source(s) Diastolic blood pressure 78 mm[Hg] 78 mm[Hg] eCW1 ([facility]) Systolic blood pressure 116 mm[Hg] 116 mm[Hg] e CW1 ([facility]) Body temperature 97.8 [degF] 97.8 [degF] eCW1 ( [facility]) Respiratory rate 18 /min 18 /min eCW1 ([facility]) Heart rate 97 /min 97 /min eCW1 ([facility]) Body mass index (BMI) [Ratio] 36.31 kg/m2 36.31 kg/m2 W1 ([facility]) Body height 66 [in_i] 66 [in_i] eCW1 ([facility]) Body weight 225 [lb_av] 225 [lb_av] [facility] Body weight Measured 240 lb 14 oz 240 lb 14 oz [place] - [facility] 2Result Comment: Result placed secondary from kg, converted to lbs Body height 66.0 [in_i] 66.0 [in_i] [place] z[place] - [facility] 1Result Comment: Result placed secondary from cm, converted to Inches Deprecated Oxygen saturation in Capillary blood by Oximetry 98 % 90-100 Normal (applies to non-numeric results) 98 % [place] - [facility] Heart rate 100 /min 60-100 Normal (applies to non-numeric resul ts) 100 /min [place] - [facility] Systolic blood pressure 90-140 Normal (applies t o non-numeric results) mm[Hg] [place] - [facility] Body temperature 98.6 [degF] 97.9-99.7 Normal (applies to non-n umeric results) 98.6 [degF] [place] - [facility] Deprecated Oxygen saturation in Capillary blood by Oximetry 97 % 90-100 Normal (applies to non-numeric results) 97 % [place] - [facility] Respiratory rate 20 /min 14-20 Normal (applies to non-numeric results) 20 /min [place] - [facility] Heart rate 104 /min 60-100 Above high normal 104 /min [facility] - [facility] Systolic blood pressure 90-140 Normal (applies t o non-numeric results) mm[Hg] [place] - [facility] Body temperature 98.4 [degF] 97.9-99.7 Normal (applies to non-n umeric results) 98.4 [degF] [place] - [facility] Body weight Measured 244 lb 8 oz 244 lb 8 oz [facility] - [facility] 2Result Comment: Result placed secondary from kg, converted to lbs Body height 66.0 [in_i] 66.0 [in_i] [place] - [facility] 1Result Comment: Result placed secondary from cm, converted to Inches Deprecated Oxygen saturation in Capillary blood by Oximetry 97 % 90-100 Normal (applies to non-numeric results) 97 % [place] - [facility] Respiratory rate 20 /min 14-20 Normal (applies to non-numeric results) 20 /min [place] - [facility] Heart rate 104 /min 60-100 Above high normal 104 /min [facility] - [facility] Systolic blood pressure 90-140 Normal (applies t o non-numeric results) mm[Hg] [place] - [facility] Body temperature 98.4 [degF] 97.9-99.7 Normal (applies to non-n umeric results) 98.4 [degF] [place] - [facility] Body weight Measured 244 lb 8 oz 244 lb 8 oz [facility] - [facility] 2Result Comment: Result placed secondary from kg, converted to lbs Body height 66.0 [in_i] 66.0 [in_i] [place] - [facility] 1Result Comment: Result placed secondary from cm, converted to Inches Body mass index (BMI) [Ratio] 38.96 kg/meter(2) Overweight 38.96 kg/meter(2) [facility] Respiratory rate 18 /min 18 /min [facility] Body temperature 97.90 [degF] 97.90 [degF] [facility] Heart rate 94 /min 94 /min [facility] Diastolic blood pressure 84 mm[Hg] 84 mm[Hg] [facility] Systolic blood pressure 138 mm[Hg] 138 mm[Hg] [facility] Body weight Measured 241.41 [lb_av] 241.41 [lb_ av] [facility] Body height 66.00 [in_us] 66.00 [in_us] [facility] Body weight Measured 241 lb 7 oz 241 lb 7 oz [facility] - [facility] 2Result Comment: Result placed secondary from kg, converted to lbs Body height 66.0 [in_i] 66.0 [in_i] [place] - [facility] 1Result Comment: Result placed secondary from cm, converted to Inches Deprecated Oxygen saturation in Capillary blood by Oximetry 98 % 90-100 Normal (applies to non-numeric results) 98 % [place] - [facility] Respiratory rate 20 /min 14-20 Normal (applies to non-numeric results) 20 /min [place] - [facility] Heart rate 97 /min 60-100 Normal (applies to non-numeric resul ts) 97 /min [place] - [facility] Systolic blood pressure 90-140 Normal (applies t o non-numeric results) mm[Hg] [place] - [facility] Body temperature 98.1 [degF] 97.9-99.7 Normal (applies to non-n umeric results) 98.1 [degF] [place] - [facility] Body weight Measured 241 lb 7 oz 241 lb 7 oz [facility] - [facility] 2Result Comment: Result placed secondary from kg, converted to lbs Body height 66.0 [in_i] 66.0 [in_i] [place] - [facility] 1Result Comment: Result placed secondary from cm, converted to Inches Deprecated Oxygen saturation in Capillary blood by Oximetry 98 % 90-100 Normal (applies to non-numeric results) 98 % [place] [facility] - [facility] Respiratory rate 20 /min 14-20 Normal (applies to non-numeric results) 20 /min [place] - [facility], [facility] Heart rate 97 /min 60-100 Normal (applies to non-numeric resul ts) 97 /min [place] - [facility], [facility] Systolic blood pressure 90-140 Normal (applies t o non-numeric results) mm[Hg] [place] - [facility] Body temperature 98.1 [degF] 97.9-99.7 Normal (applies to non-n umeric results) 98.1 [degF] [place] - [facility] Patient Treatment Plan of Care Planned Activity Planned Date Details Description Data Source (s) Flonase Allergy Relief 50 mcg/actuation nasal spray,dickinson spension 06/08/2016 12:00:00 AM EDT [facility] Previfem 0.25 mg-35 mcg tablet [facility] Lactobacillus rhamnosus GG [id number] UNT Oral Capsule [facility] trazodone 50 mg tablet [facility] Hyoscyamine Sulfate 0.125 MG/ML Oral Solution [facility] Briellyn 0.4 mg-35 mcg tablet [facility] Clonazepam 1 MG Oral Tablet [facility] methylphenidate ER 50 mg multiphase capsule 30-70,extended release [facility] Metformin hydrochloride 500 MG Oral Tablet [facility]
--- NOTE | 2020-03-21 01:39 | REPVR ---
PROCEDURE INFORMATION: Exam: US Nonobstetric Pelvis; Complete Exam date and time: 03/21/2020 1:22 AM Age: 19 years old Clinical indication: Pelvic pain TECHNIQUE: Imaging protocol: Transabdominal pelvic nonobstetric ultrasound. Complete exam. Real time ultrasound with image documentation. COMPARISON: CT ABD PELVIS W/O CONTRAST 03/12/2020 9:45 PM FINDINGS: Uterus/cervix: The uterus measures 6.9 cm in its cephalocaudad dimension and 3.5 x 4.6 cm in its AP and lateral dimensions. The endometrium measures 2-3 mm. Right adnexa: The right ovary measures 4.1 x 2.1 x 3.1 cm. Left adnexa: The left ovary measures 4.6 x 2.2 x 2.6 cm. Intraperitoneal space: No intraperitoneal fluid. IMPRESSION: Negative pelvic sonogram. Electronically signed by: Dao Carter On 03/21/2020 01:39:00 AM
[2020-03-21 02:35] VITALS: BP 126/77
== END 2020-03-21 02:38 | disposition home or self-care (01) ==
LOC: M ED 22:33
DX: N94.6 Dysmenorrhea, unspecified (principal); Z88.0 Allergy status to penicillin
CPT/HCPCS: 76856; 80047; 81001; 84702; 96374; 99284; J1885

== ENCOUNTER 2020-06-14 16:54 | Emergency (ER) | payer OTHER ==
[~2020-06-14] VITALS: Ht 167.6 cm; Wt 106.8 kg
[2020-06-14 16:55] VITALS: BP 129/66
[2020-06-14] MEDS ORDERED: IBUP-1114 PO (17:15)
== END 2020-06-14 18:15 | disposition left against medical advice (07) ==
LOC: M ED 16:54
DX: Z53.21 Procedure and treatment not carried out due to patient leaving prior to being seen by health care provider (principal)

== ENCOUNTER 2020-07-08 22:37 | Emergency (ER) | payer MEDICAID, OTHER ==
[~2020-07-08] VITALS: Ht 167.6 cm; Wt 104.5 kg
[~2020-07-08 22:37] MED LIST changes: +IBUP-1114 PO
[2020-07-09 00:07] LABS: BASO # 0.1 10^3/uL (0.0-0.2); BASO % 0.7 % (0.0-1.0); EOS # 0.3 10^3/uL (0.0-0.5); EOS % 2.5 % (0.0-3.0); HEMOGLOBIN 13.3 g/dl (12.0-15.5); LYMPH # 3.3 10^3/uL (1.5-5.0); LYMPH % 28.3 % (24.0-44.0); MEAN CORPUSCULAR HEMOGLOBIN 29.2 pg (27.0-33.0); MEAN CORPUSCULAR HGB CONC 33.3 g/dl (32.0-36.5); MEAN CORPUSCULAR VOLUME 87.7 fl (80.0-96.0); MONO # 0.7 10^3/uL (0.0-0.8); MONO % 6.1 % (2.0-8.0); NEUTROPHILS # 7.2 10^3/uL (1.5-8.5); NEUTROPHILS % 61.6 % (36.0-66.0); PLATELET COUNT, AUTOMATED 286 10^3/uL (150-450); RED BLOOD COUNT 4.56 10^6/uL (4.00-5.40); WHITE BLOOD COUNT 11.7 10^3/uL (4.0-10.0)
[2020-07-09 00:21] LABS: ALBUMIN 3.8 GM/DL (3.2-5.2); ALT/SGPT 30 U/L (12-78); BILIRUBIN,DIRECT < 0.1 MG/DL (0.0-0.2); BILIRUBIN,TOTAL 0.2 MG/DL (0.2-1.0); BLOOD UREA NITROGEN 8 MG/DL (7-18); CALCIUM LEVEL 8.6 MG/DL (8.5-10.1); CARBON DIOXIDE LEVEL 26 MEQ/L (21-32); CHLORIDE LEVEL 108 MEQ/L (98-107); CREATININE FOR GFR 0.65 MG/DL (0.55-1.30); GLOMERULAR FILTRATION RATE > 60.0 (>60); GLUCOSE, FASTING 88 MG/DL (70-100); POTASSIUM SERUM 4.1 MEQ/L (3.5-5.1); SODIUM LEVEL 140 MEQ/L (136-145); TOTAL PROTEIN 7.3 GM/DL (6.4-8.2)
[2020-07-09] MEDS ORDERED: CEPH500C PO (01:08)
[2020-07-09 01:28] VITALS: BP 132/64
--- NOTE | 2020-07-10 07:26 | ECGEPIP ---
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
== END 2020-07-09 01:47 | disposition home or self-care (01) ==
LOC: M ED 22:37
DX: R56.9 Unspecified convulsions (principal); Z88.0 Allergy status to penicillin; Z79.899 Other long term (current) drug therapy

== ENCOUNTER 2020-12-08 18:13 | Emergency (ER) | payer MEDICAID, OTHER ==
[~2020-12-08] VITALS: Ht 172.7 cm; Wt 122.7 kg
[~2020-12-08 18:13] MED LIST changes: +CEPH500C PO
[2020-12-08] MEDS ORDERED: ONDANSETRON 4MG/2ML VIAL IV ONE (18:40)
[2020-12-08] MEDS ORDERED: MORPHINE 2 MG/ML 1ML VIAL (J2270) IV ONE (18:40)
[2020-12-08] MEDS ORDERED: NS 1,000 ML IV ONE (18:40)
[2020-12-08 19:08] LABS: BASO # 0.1 10^3/uL (0.0-0.2); BASO % 0.8 % (0.0-1.0); EOS # 0.3 10^3/uL (0.0-0.5); EOS % 2.7 % (0.0-3.0); HEMATOCRIT 41.8 % (36.0-47.0); LYMPH # 3.5 10^3/uL (1.5-5.0); LYMPH % 34.3 % (24.0-44.0); MEAN CORPUSCULAR HEMOGLOBIN 29.3 pg (27.0-33.0); MEAN CORPUSCULAR HGB CONC 33.5 g/dl (32.0-36.5); MEAN CORPUSCULAR VOLUME 87.4 fl (80.0-96.0); MONO # 0.6 10^3/uL (0.0-0.8); MONO % 6.2 % (2.0-8.0); NEUTROPHILS # 5.7 10^3/uL (1.5-8.5); NEUTROPHILS % 55.8 % (36.0-66.0); PLATELET COUNT, AUTOMATED 308 10^3/uL (150-450); RED BLOOD COUNT 4.78 10^6/uL (4.00-5.40); WHITE BLOOD COUNT 10.2 10^3/uL (4.0-10.0)
[2020-12-08] MEDS ORDERED: ISOVUE-370 76% 100ML VIAL As Ordered ONE (19:42)
[2020-12-08 19:43] LABS: ALBUMIN 3.7 GM/DL (3.2-5.2); ALT/SGPT 38 U/L (12-78); BILIRUBIN,DIRECT < 0.1 MG/DL (0.0-0.2); BILIRUBIN,TOTAL 0.2 MG/DL (0.2-1.0); BLOOD UREA NITROGEN 14 MG/DL (7-18); CALCIUM LEVEL 8.9 MG/DL (8.5-10.1); CARBON DIOXIDE LEVEL 25 MEQ/L (21-32); CHLORIDE LEVEL 107 MEQ/L (98-107); CREATININE FOR GFR 0.72 MG/DL (0.55-1.30); GLOMERULAR FILTRATION RATE > 60.0 (>60); GLUCOSE, FASTING 88 MG/DL (70-100); LIPASE 102 U/L (73-393); POTASSIUM SERUM 4.3 MEQ/L (3.5-5.1); SODIUM LEVEL 140 MEQ/L (136-145); TOTAL PROTEIN 7.3 GM/DL (6.4-8.2)
[2020-12-08 20:32] LABS: RSV AMPLIFICATION NEGATIVE (NEGATIVE)
--- NOTE | 2020-12-08 21:59 | REPVR ---
PROCEDURE INFORMATION: Exam: CT Abdomen And Pelvis With Contrast Exam date and time: 12/08/2020 7:46 PM Age: 20 years old Clinical indication: Abdominal pain; Localized; Left lower quadrant (llq); Additional info: Llq abdom pain, bloody stools, eval for diverticulitis TECHNIQUE: Imaging protocol: Computed tomography of the abdomen and pelvis with contrast. Radiation optimization: All CT scans at this facility use at least one of these dose optimization techniques: automated exposure control; mA and/or kV adjustment per patient size (includes targeted exams where dose is matched to clinical indication); or iterative reconstruction. Contrast material: ISOVUE 370; Contrast volume: 100 ml; Contrast route: INTRAVENOUS (IV); COMPARISON: CT ABD PELVIS W/O CONTRAST 03/12/2020 9:45 PM FINDINGS: Liver: The liver is normal. Gallbladder and bile ducts: The gallbladder is contracted but otherwise normal. Bile ducts are not dilated. Pancreas: The pancreas is normal. Spleen: The spleen is normal. Adrenal glands: The adrenals are normal. Kidneys and ureters: The kidneys are normal.No hydronephrosis. Stomach and bowel: No colonic diverticula. No bowel wall thickening. No bowel distension. Appendix: The appendix is well visualized and is normal. Intraperitoneal space: There is a trace of free fluid in the pelvic cul-de-sac, not unusual for age and gender. No fluid collection. No free air. Vasculature: Unremarkable. No abdominal aortic aneurysm. Lymph nodes: Unremarkable. No enlarged lymph nodes. Urinary bladder: The bladder is normal with no evidence of calculi. Reproductive: Unremarkable as visualized. Bones/joints: Unremarkable. No acute fracture. Soft tissues: Unremarkable. IMPRESSION: No acute findings Electronically signed by: Marino Du On 12/08/2020 21:58:47 PM
[2020-12-08 22:28] VITALS: BP 133/88
== END 2020-12-08 22:30 | disposition home or self-care (01) ==
LOC: EDBD 18:13 → M ED 18:13
DX: R10.9 Unspecified abdominal pain (principal); R56.9 Unspecified convulsions; K58.8 Other irritable bowel syndrome; Z79.899 Other long term (current) drug therapy
CPT/HCPCS: 74177; 80047; 80048; 80076; 83605; 83690; 85025; 87631; 96361; 96374; 96375; 99284; J2270; J2405; Q9967

== ENCOUNTER → 2021-01-03 | Outpatient (CLI) | payer OTHER, MEDICAID ==
--- NOTE | 2021-01-03 12:13 | REP ---
INDICATION: LT KNEE PAIN. COMPARISON: None. TECHNIQUE: Five views FINDINGS: The compartments are symmetric and well maintained. There is no acute fracture, dislocation, or subluxation. There is no evidence of a destructive osseous lesion. IMPRESSION: Within normal limits. <Electronically signed by Martir Greenfield > 01/03/21 [id number]
== END ==
LOC: M SOG 10:58
PROVIDERS: ATTEND Orthopaedic Surgery
DX: M25.562 Pain in left knee (principal)

== ENCOUNTER → 2021-03-13 | Outpatient (REF) | LOC: M PLAIMG 09:48 | PROVIDERS: ATTEND Internal Medicine | DX: M25.562 Pain in left knee (principal) ==

== ENCOUNTER → 2021-04-10 | Outpatient (CLI) | payer MEDICAID | LOC: M PLAIMG 09:58 | PROVIDERS: ATTEND Orthopaedic Surgery Hand Surgery | DX: M22.12 Recurrent subluxation of patella, left knee (principal); M22.42 Chondromalacia patellae, left knee ==

== ENCOUNTER 2021-10-14 20:56 | Emergency (ER) | payer MEDICAID ==
[~2021-10-14] VITALS: Ht 167.6 cm; Wt 90.9 kg
[2021-10-14 20:58] VITALS: BP 142/91
[2021-10-15 00:08] LABS: BASO # 0.1 10^3/uL (0.0-0.2); BASO % 0.9 % (0.0-1.0); EOS # 0.3 10^3/uL (0.0-0.5); EOS % 2.3 % (0.0-3.0); HEMATOCRIT 39.6 % (36.0-47.0); HEMOGLOBIN 13.2 g/dl (12.0-15.5); LYMPH # 4.6 10^3/uL (1.5-5.0); LYMPH % 41.8 % (24.0-44.0); MEAN CORPUSCULAR HEMOGLOBIN 29.3 pg (27.0-33.0); MEAN CORPUSCULAR HGB CONC 33.3 g/dl (32.0-36.5); MEAN CORPUSCULAR VOLUME 87.8 fl (80.0-96.0); MONO # 0.8 10^3/uL (0.0-0.8); MONO % 7.2 % (2.0-8.0); NEUTROPHILS # 5.1 10^3/uL (1.5-8.5); NEUTROPHILS % 47.2 % (36.0-66.0); PLATELET COUNT, AUTOMATED 296 10^3/uL (150-450); RED BLOOD COUNT 4.51 10^6/uL (4.00-5.40); WHITE BLOOD COUNT 10.9 10^3/uL (4.0-10.0)
[2021-10-15 00:17] LABS: ALBUMIN 3.8 GM/DL (3.2-5.2); ALT/SGPT 27 U/L (12-78); AMYLASE 28 U/L (25-115); BILIRUBIN,DIRECT 0.2 MG/DL (0.0-0.2); BILIRUBIN,TOTAL 0.1 MG/DL (0.2-1.0); BLOOD UREA NITROGEN 15 MG/DL (7-18); CALCIUM LEVEL 9.4 MG/DL (8.5-10.1); CARBON DIOXIDE LEVEL 26 MEQ/L (21-32); CHLORIDE LEVEL 109 MEQ/L (98-107); CREATININE FOR GFR 0.79 MG/DL (0.55-1.30); GLOMERULAR FILTRATION RATE > 60.0 (>60); GLUCOSE, FASTING 99 MG/DL (70-100); LIPASE 102 U/L (73-393); SODIUM LEVEL 139 MEQ/L (136-145); TOTAL PROTEIN 7.3 GM/DL (6.4-8.2)
[2021-10-15 00:37] LABS: HCG, SERUM QUALITATIVE NEGATIVE (NEGATIVE)
== END 2021-10-15 02:32 | disposition left against medical advice (07) ==
LOC: M ED 20:56
DX: Z53.21 Procedure and treatment not carried out due to patient leaving prior to being seen by health care provider (principal)

== ENCOUNTER 2021-10-15 10:10 | Emergency (ER) | payer MEDICAID, OTHER ==
[~2021-10-15] VITALS: Ht 167.6 cm; Wt 100.6 kg
[2021-10-15 11:40] LABS: BASO # 0.1 10^3/uL (0.0-0.2); BASO % 0.8 % (0.0-1.0); EOS # 0.2 10^3/uL (0.0-0.5); EOS % 1.7 % (0.0-3.0); HEMATOCRIT 41.7 % (36.0-47.0); HEMOGLOBIN 13.3 g/dl (12.0-15.5); LYMPH # 2.9 10^3/uL (1.5-5.0); LYMPH % 30.9 % (24.0-44.0); MEAN CORPUSCULAR HEMOGLOBIN 28.2 pg (27.0-33.0); MEAN CORPUSCULAR HGB CONC 31.9 g/dl (32.0-36.5); MEAN CORPUSCULAR VOLUME 88.5 fl (80.0-96.0); MONO # 0.7 10^3/uL (0.0-0.8); MONO % 7.3 % (2.0-8.0); NEUTROPHILS # 5.6 10^3/uL (1.5-8.5); NEUTROPHILS % 59.2 % (36.0-66.0); PLATELET COUNT, AUTOMATED 285 10^3/uL (150-450); RED BLOOD COUNT 4.71 10^6/uL (4.00-5.40); WHITE BLOOD COUNT 9.5 10^3/uL (4.0-10.0)
[2021-10-15] MEDS ORDERED: MOM 30ML SUSPENSION UDC PO ONE ×2 (11:40→13:05)
[2021-10-15] MEDS: FLEET OIL RETENTION ENEMA PR PRN ×2 (11:54→13:20)
[2021-10-15 11:59] LABS: HCG, SERUM QUALITATIVE NEGATIVE (NEGATIVE)
[2021-10-15 12:18] LABS: ALBUMIN 3.7 GM/DL (3.2-5.2); ALT/SGPT 23 U/L (12-78); BILIRUBIN,DIRECT 0.1 MG/DL (0.0-0.2); BILIRUBIN,TOTAL 0.4 MG/DL (0.2-1.0); BLOOD UREA NITROGEN 12 MG/DL (7-18); CALCIUM LEVEL 9.3 MG/DL (8.5-10.1); CARBON DIOXIDE LEVEL 25 MEQ/L (21-32); CHLORIDE LEVEL 110 MEQ/L (98-107); CREATININE FOR GFR 0.75 MG/DL (0.55-1.30); GLOMERULAR FILTRATION RATE > 60.0 (>60); GLUCOSE, FASTING 91 MG/DL (70-100); LIPASE 82 U/L (73-393); POTASSIUM SERUM 4.2 MEQ/L (3.5-5.1); SODIUM LEVEL 139 MEQ/L (136-145); TOTAL PROTEIN 7.1 GM/DL (6.4-8.2)
[2021-10-15] MEDS ORDERED: KETOROLAC 30 MG/ML 1ML VIAL IV ONE (13:05)
[2021-10-15 14:03] VITALS: BP 120/79
== END 2021-10-15 14:19 | disposition home or self-care (01) ==
LOC: M ED 10:10
DX: K59.00 Constipation, unspecified (principal); R10.32 Left lower quadrant pain; R10.12 Left upper quadrant pain; F17.200 Nicotine dependence, unspecified, uncomplicated; Z88.0 Allergy status to penicillin; Z79.899 Other long term (current) drug therapy
CPT/HCPCS: 74018; 80048; 80076; 83690; 84703; 85025; 96374; 99283; J1885

== ENCOUNTER 2021-10-19 23:00 | Emergency (ER) | payer OTHER ==
[~2021-10-19] VITALS: Ht 167.6 cm; Wt 99.6 kg
[2021-10-19 23:01] VITALS: BP 164/80
[2021-10-20 00:17] LABS: BASO # 0.1 10^3/uL (0.0-0.2); BASO % 0.9 % (0.0-1.0); EOS # 0.3 10^3/uL (0.0-0.5); EOS % 2.3 % (0.0-3.0); HEMATOCRIT 42.1 % (36.0-47.0); HEMOGLOBIN 13.8 g/dl (12.0-15.5); LYMPH # 3.7 10^3/uL (1.5-5.0); LYMPH % 33.2 % (24.0-44.0); MEAN CORPUSCULAR HEMOGLOBIN 28.8 pg (27.0-33.0); MEAN CORPUSCULAR HGB CONC 32.8 g/dl (32.0-36.5); MEAN CORPUSCULAR VOLUME 87.9 fl (80.0-96.0); MONO % 8.6 % (2.0-8.0); NEUTROPHILS # 6.1 10^3/uL (1.5-8.5); NEUTROPHILS % 54.6 % (36.0-66.0); PLATELET COUNT, AUTOMATED 288 10^3/uL (150-450); RED BLOOD COUNT 4.79 10^6/uL (4.00-5.40); WHITE BLOOD COUNT 11.3 10^3/uL (4.0-10.0)
[2021-10-20 00:35] LABS: ALBUMIN 3.9 GM/DL (3.2-5.2); ALT/SGPT 25 U/L (12-78); BILIRUBIN,DIRECT 0.2 MG/DL (0.0-0.2); BILIRUBIN,TOTAL 0.2 MG/DL (0.2-1.0); BLOOD UREA NITROGEN 14 MG/DL (7-18); CALCIUM LEVEL 8.9 MG/DL (8.5-10.1); CARBON DIOXIDE LEVEL 25 MEQ/L (21-32); CHLORIDE LEVEL 110 MEQ/L (98-107); CREATININE FOR GFR 0.84 MG/DL (0.55-1.30); GLOMERULAR FILTRATION RATE > 60.0 (>60); GLUCOSE, FASTING 98 MG/DL (70-100); LIPASE 116 U/L (73-393); POTASSIUM SERUM 3.8 MEQ/L (3.5-5.1); SODIUM LEVEL 141 MEQ/L (136-145); TOTAL PROTEIN 7.3 GM/DL (6.4-8.2)
== END 2021-10-20 01:03 | disposition left against medical advice (07) ==
LOC: M ED 23:00
DX: Z53.21 Procedure and treatment not carried out due to patient leaving prior to being seen by health care provider (principal)

== ENCOUNTER 2021-12-01 12:34 | Emergency (ER) | payer OTHER ==
[~2021-12-01] VITALS: Ht 167.6 cm; Wt 106.8 kg
[2021-12-01] MEDS ORDERED: ASPI81CH33 PO (12:45)
[2021-12-01] MEDS ORDERED: LIDOCAINE 2% 5ML JELLY UROJET TOP ONE (15:30)
[2021-12-01] MEDS ORDERED: IBUPROFEN 800 MG TAB PO ONE (15:35)
[2021-12-01 17:06] VITALS: BP 127/76
== END 2021-12-01 17:08 | disposition home or self-care (01) ==
LOC: M ED 12:34
DX: M79.605 Pain in left leg (principal); W10.8XXA Fall (on) (from) other stairs and steps, initial encounter; R33.9 Retention of urine, unspecified; G40.89 Other seizures; Z88.0 Allergy status to penicillin; Y92.009 Unspecified place in unspecified non-institutional (private) residence as the place of occurrence of the external cause; Y93.9 Activity, unspecified; Y99.9 Unspecified external cause status; Z79.82 Long term (current) use of aspirin; Z79.899 Other long term (current) drug therapy

== ENCOUNTER 2021-12-04 21:26 | Emergency (ER) | payer OTHER ==
[~2021-12-04] VITALS: Ht 167.6 cm; Wt 106.8 kg
[~2021-12-04 21:26] MED LIST changes: +ASPI81CH33 PO
[2021-12-04] MEDS ORDERED: MELO15TA28 PO (21:31)
[2021-12-05] MEDS ORDERED: ISOVUE-370 76% 100ML VIAL As Ordered ONE (00:54)
[2021-12-05 02:38] LABS: HCG, SERUM QUALITATIVE NEGATIVE (NEGATIVE)
[2021-12-05] MEDS ORDERED: KETOROLAC 30 MG/ML 1ML VIAL IV ONE (03:00)
[2021-12-05 05:24] VITALS: BP 128/67
== END 2021-12-05 05:27 | disposition home or self-care (01) ==
LOC: M ED 21:26
DX: S84.92XA Injury of unspecified nerve at lower leg level, left leg, initial encounter (principal); S80.02XA Contusion of left knee, initial encounter; W18.2XXA Fall in (into) shower or empty bathtub, initial encounter; Y92.009 Unspecified place in unspecified non-institutional (private) residence as the place of occurrence of the external cause; Y93.E1 Activity, personal bathing and showering; Y99.9 Unspecified external cause status; Z88.0 Allergy status to penicillin; Z79.52 Long term (current) use of systemic steroids; Z79.899 Other long term (current) drug therapy
CPT/HCPCS: 73701; 80047; 84702; 84703; 96374; 99284; J1885; Q9967

== ENCOUNTER → 2021-12-22 | Outpatient (CLI) | payer OTHER ==
[~2021-12-22] MED LIST changes: +MELO15TA28 PO
== END ==
LOC: M PLAIMG 08:52
PROVIDERS: ATTEND Orthopaedic Surgery Adult Reconstructive Orthopaedic Surgery
DX: M22.42 Chondromalacia patellae, left knee (principal)

== ENCOUNTER 2021-12-27 13:21 | Emergency (ER) | payer OTHER ==
[~2021-12-27] VITALS: Ht 167.6 cm; Wt 103.1 kg
[2021-12-27 13:21] VITALS: BP 137/92
[2021-12-27] MEDS ORDERED: BACL10TA2 (13:36)
[2021-12-27 14:58] LABS: BASO # 0.1 10^3/uL (0.0-0.2); BASO % 0.8 % (0.0-1.0); EOS # 0.2 10^3/uL (0.0-0.5); EOS % 2.1 % (0.0-3.0); HEMATOCRIT 41.1 % (36.0-47.0); HEMOGLOBIN 13.8 g/dl (12.0-15.5); LYMPH # 2.8 10^3/uL (1.5-5.0); LYMPH % 30.5 % (24.0-44.0); MEAN CORPUSCULAR HEMOGLOBIN 29.7 pg (27.0-33.0); MEAN CORPUSCULAR HGB CONC 33.6 g/dl (32.0-36.5); MEAN CORPUSCULAR VOLUME 88.4 fl (80.0-96.0); MONO # 0.6 10^3/uL (0.0-0.8); MONO % 6.9 % (2.0-8.0); NEUTROPHILS # 5.5 10^3/uL (1.5-8.5); NEUTROPHILS % 59.6 % (36.0-66.0); PLATELET COUNT, AUTOMATED 312 10^3/uL (150-450); RED BLOOD COUNT 4.65 10^6/uL (4.00-5.40); WHITE BLOOD COUNT 9.2 10^3/uL (4.0-10.0)
[2021-12-27] MEDS ORDERED: NS 1,000 ML IV ONE (15:30)
[2021-12-27] MEDS ORDERED: ONDANSETRON 4MG 2ML VIAL IV ONE (15:30)
[2021-12-27 16:46] LABS: FREE T4 0.88 NG/DL (0.76-1.46); THYROID STIMULATING HORMONE 2.52 uIU/ML (0.358-3.740)
[2021-12-27] MEDS ORDERED: ONDA4TAB6 PO (17:13)
[2021-12-27 18:28] LABS: GC DNA AMPLIFICATION NEGATIVE (NEGATIVE)
== END 2021-12-27 17:26 | disposition home or self-care (01) ==
LOC: M ED 13:21
DX: N93.9 Abnormal uterine and vaginal bleeding, unspecified (principal); R11.11 Vomiting without nausea; F17.200 Nicotine dependence, unspecified, uncomplicated; Z88.0 Allergy status to penicillin
CPT/HCPCS: 76856; 80047; 84439; 84443; 84702; 85025; 87661; 87810; 87850; 93976; 96374; 99282; J2405

== ENCOUNTER 2022-01-21 12:11 | Emergency (ER) | payer OTHER ==
[~2022-01-21] VITALS: Ht 167.6 cm; Wt 101.2 kg
[2022-01-21 12:11] VITALS: BP 168/92
[~2022-01-21 12:11] MED LIST changes: +BACL10TA2; +ONDA4TAB6 PO
[2022-01-21 13:30] LABS: BASO # 0.1 10^3/uL (0.0-0.2); BASO % 0.6 % (0.0-1.0); EOS # 0.1 10^3/uL (0.0-0.5); EOS % 1.2 % (0.0-3.0); HEMOGLOBIN 12.9 g/dl (12.0-15.5); LYMPH # 2.5 10^3/uL (1.5-5.0); LYMPH % 23.8 % (24.0-44.0); MEAN CORPUSCULAR HEMOGLOBIN 29.1 pg (27.0-33.0); MEAN CORPUSCULAR HGB CONC 32.3 g/dl (32.0-36.5); MEAN CORPUSCULAR VOLUME 90.1 fl (80.0-96.0); MONO # 0.7 10^3/uL (0.0-0.8); MONO % 6.9 % (2.0-8.0); NEUTROPHILS % 67.3 % (36.0-66.0); PLATELET COUNT, AUTOMATED 312 10^3/uL (150-450); RED BLOOD COUNT 4.44 10^6/uL (4.00-5.40); WHITE BLOOD COUNT 10.4 10^3/uL (4.0-10.0)
[2022-01-21 14:06] LABS: HCG, SERUM QUALITATIVE NEGATIVE (NEGATIVE)
[2022-01-21 16:46] LABS: ALBUMIN 4.1 G/DL (3.2-5.2); ALT/SGPT 18 U/L (7.0-40); BILIRUBIN,DIRECT 0.1 MG/DL (<0.4); BILIRUBIN,TOTAL 0.4 MG/DL (0.3-1.2); BLOOD UREA NITROGEN 19 MG/DL (9-23); CALCIUM LEVEL 9.5 MG/DL (8.5-10.1); CARBON DIOXIDE LEVEL 22 MMOL/L (20-31); CHLORIDE LEVEL 107 MMOL/L (98-107); CREATININE FOR GFR 1.39 MG/DL (0.55-1.30); GLOMERULAR FILTRATION RATE 50.5 (>60); GLUCOSE, FASTING 95 MG/DL (60-100); LIPASE 23 U/L (12-53); POTASSIUM SERUM 4.4 MMOL/L (3.5-5.1); SODIUM LEVEL 141 MMOL/L (136-145); TOTAL PROTEIN 7.4 G/DL (5.7-8.2)
== END 2022-01-21 19:22 | disposition left against medical advice (07) ==
LOC: M ED 12:11
DX: Z53.21 Procedure and treatment not carried out due to patient leaving prior to being seen by health care provider (principal)

== ENCOUNTER 2022-02-26 11:14 | Emergency (ER) | payer OTHER ==
[~2022-02-26] VITALS: Ht 167.6 cm; Wt 103.6 kg
[2022-02-26 11:15] VITALS: BP 134/93
== END 2022-02-26 13:00 | disposition left against medical advice (07) ==
LOC: M ED 11:14
DX: Z53.21 Procedure and treatment not carried out due to patient leaving prior to being seen by health care provider (principal)